=== PATIENT | female | born 1955 | race Caucasian/White ===

== ENCOUNTER 2020-07-31 08:41 | Outpatient (REF) | payer OTHER, SELFPAY ==
[2020-07-31 14:24] LABS: Alanine Aminotransferase 35 U/L (0-31); Albumin Level 4.5 g/dL (3.5-5.0); Alkaline Phosphatase 53 U/L (39-117); Anion Gap 11 (12-20); Aspartate Amino Transferase 24 U/L (5-31); Bilirubin Total 0.9 mg/dL (0.0-1.0); Blood Urea Nitrogen 16 mg/dL (9-16); Calcium 9.2 mg/dL (8.4-10.2); Carbon Dioxide 30 mmol/L (22-29); Chloride 103 mmol/L (96-108); Cholesterol 191 mg/dL; Estimated Glomerular Filt Rate > 60; Glucose Fasting 102 mg/dL (60-99); HDL Cholesterol 53 mg/dL; LDL Cholesterol Calculated 120 mg/dl; Potassium 5.8 mmol/l (3.3-5.1); Sodium 138 mmol/L (135-145); Total Protein 7.3 g/dL (6.5-8.0); Triglycerides 93 mg/dL
== END 2020-07-31 08:42 | disposition home or self-care (01) ==
LOC: HO.10HDL 08:41
PROVIDERS: Visit Provider Internal Medicine
DX: I10 Essential (primary) hypertension (principal)
CPT/HCPCS: 80053; 80061

== ENCOUNTER 2020-08-10 12:54 | Emergency (ER) | payer OTHER, SELFPAY ==
[2020-08-10 15:01] VITALS: BP 183/104; PULSE 77; RESP 16; TEMP 36.7; O2SAT 99; BMI 25.3
--- NOTE | 2020-08-10 15:11 | XR_ITS ---
EXAMINATION: XR HIP, LEFT, PELVIS AP CLINICAL INFORMATION: Left hip pain. COMPARISON: None TECHNIQUE: Two views of the left hip with AP pelvis. FINDINGS: Bones and soft tissues are normal. No fracture. Alignment is anatomic. Hip joint space is maintained. XR/XR hip LT w PEL1V IMPRESSION: Unremarkable pelvis and bilateral hips.
--- NOTE | 2020-08-10 15:15 | ED_ITS ---
HPI - Fall General Chief Complaint: Fall Stated Complaint: fall, hip pain Time Seen by Provider: 08/10/20 15:11 Source: patient Mode of arrival: ambulatory Limitations: no limitations History of Present Illness HPI Narrative: 64-year-old female who tells me on Wednesday she had a fall. She has chronic arthritis in the right knee and is scheduled for knee replacement and her right knee gave out on her causing her to fall her left hip. She denies hitting her head or loss of consciousness. She is here complaining of left hip pain and ecchymosis. complaint: fall Onset (ago): day(s) Fall from: standing Fall witnessed: no Place fall occurred: home Loss of consciousness: none Prolonged down time: no Symptoms prior to fall: none Context: other (right knee gave out ) Location of injury: pelvis (left hip) Severity: mild Associated symptoms (after fall): denies Related Data Previous Rx's Medication Instructions Recorded paroxetine HCl 40 mg tablet 40 mg PO DAILY 90 Days #90 tab 07/30/20 methylcellulose (laxative) 500 mg 1,000 mg PO BID 30 Days #120 tab 07/31/20 tablet amlodipine 2.5 mg tablet 5 mg PO DAILY 30 Days #60 tab 08/07/20 amlodipine 5 mg tablet 5 mg PO DAILY 90 Days #90 tab 08/07/20 Allergies Allergy/AdvReac Type Severity Reaction Status Date / Time No Known Allergies Allergy Unverified 07/04/20 16:50 [No Known Allergies*] Review of Systems Review of Systems: Yes all other systems are reviewed and are negative Constitutional: Constitutional: Reports no additional constitutional complaints, Denies body ache(s), Denies chills, Denies fever(s), Denies headache(s) and Denies weakness Eyes: Eyes: Reports no additional eye complaints and Denies change in vision ENT: Reports system reviewed and no additional complaints, except as do cumented, Denies dizziness, Denies headache(s), Denies nasal congestion, Denies nasal discharge and Denies neck pain Cardiovascular: Cardiovascular: Reports no additional cardiovascular complaints, Denies chest pain, Denies leg edema and Denies dyspnea Respiratory: Respiratory: Reports no additional respiratory complaints, Denies cough and Denies dyspnea Gastrointestinal: Gastrointestinal: Reports no additional gastrointestinal complaints, Denies abdominal pain, Denies diarrhea, Denies nausea and Denies vomiting Genitourinary: Genitourinary: Reports no additional female genitourinary complaints and Denies urinary incontinence Musculoskeletal: Musculoskeletal: Reports no additional musculoskeletal complaints, Denies back pain, Reports arthralgias, Denies joint swelling, Denies neck pain, Denies numbness and Denies tingling Integumentary/Breasts: Skin/Breast: Reports system reviewed and no additional complaints, except as docu and Denies rash Neurologic: Reports system reviewed and no additional complaints, except as documented, Denies Abnormal speech present, Denies dizziness, Denies headache(s), Denies numbness, Denies tingling and Denies weakness PMFSH Past Medical History Attestation statement: The following information was validated with the patient. Source: obtained from family and nursing notes reviewed Medical History Depression Diverticulitis Essential hypertension Hyperkalemia Osteoarthritis (arthritis due to wear and tear of joints) Social History Social History Smoked in Last 30 Days: No Use of substances other than those prescribed or required for medical reasons: No Advance Directives: No Advance Directives Information Provided: No (ALREADY HAS ON FILE) Advance Directives Date on File: 07/31/20 Physical Exam Vital Signs: Vital Signs: Vital Signs Temp Pulse Resp BP Pulse Ox 08/10/20 15:01 98.0 F 77 16 183/104 H 99 Body Mass Index 25.3 Const: General: cooperative, healthy appearing, comfortable and no acute distress Orientation/consciousness: patient oriented x3 Limitations: no limitations HENMT: Head: Yes normal to inspection Ears: hearing grossly normal bilatera lly General nose exam: Normal external nose present Face and sinus: Yes normal facial exam Mouth: Normal oral and palatal mucosa present Throat: Yes posterior oropharynx normal Eyes: General: appearance normal, both eyes and all related structures Pupils: Equal, round and reactive pupils present Neck: Neck: Yes normal visual inspection Chest: Chest palpation & inspection: normal inspection of the chest Resp: Effort & Inspection: normal respiratory effort Auscultation: clear to auscultation bilaterally Cardio: Rate: regular rate Rhythm: regular rhythm Peripheral pulses: Peripheral pulses 2+ throughout GI: Inspection: Yes normal to inspection Palpation (GI): Soft to palpation and nontender Auscultation: normal bowel sounds Back/Spine/Pelvis: Thoracic/Lumbar Spine: thoracic and lumbar spine normal to inspection Skin: General skin exam: no rashes or lesions noted Neuro: General: patient oriented x3, no focal motor deficits and normal sens ation to monofilament Cranial nerves: Yes Equal, round and reactive pupils present Cognition (Neuro): normal cognition Speech: No Abnormal speech present Gait exam (Neuro): Normal gait present Motor exam (neuro): 5/5 motor strength present throughout Extrem: Other: Over the left lateral left hip there is ecchymosis and tenderness. There is no obvious deformity and the leg is not shortened or rotated. Pain with internal rotation but full range of motion able. Neurovascularly intact distally. General: Yes normal to inspection Course Course Course Narrative: Left hip pain status post mechanical fall. Will check imaging. 1615- imaging negative. Likely contusion. Reviewed worrisome signs and symptoms when to return to the emergency department. Comfortable discharge home. MDM - Fall Imaging Data hip and pelvis left : Attestation: I personally reviewed and interpreted this imaging study as follows: My impression: unremarkable Radiologist's impression: EXAMINATION: XR HIP, LEFT, PELVIS AP CLINICAL INFORMATION: Left hip pain. COMPARISON: None TECHNIQUE: Two views of the left hip with AP pelvis. FINDINGS: Bones and soft tissues are normal. No fracture. Alignment is anatomic. Hip joint space is maintained. XR/XR hip LT w PEL1V IMPRESSION: Unremarkable pelvis and bilateral hips. Discharge Plan Discharge Clinical Impression: Contusion Qualifiers: Encounter type: initial encounter Contusion area: hip Laterality: left Qualified Code(s): S70.02XA - Contusion of left hip, initial encounter Patient Disposition: Home, Self-Care Instructions: Hip Contusion (ED) Prescriptions: No Action paroxetine HCl 40 mg tablet 40 mg PO DAILY 90 Days Qty: 90 RF: 3 Citrucel 500 mg tablet 1,000 mg PO BID 30 Days Qty: 120 RF: 6 amlodipine 2.5 mg tablet 5 mg PO DAILY 30 Days Qty: 60 RF: 6 amlodipine 5 mg tablet 5 mg PO DAILY 90 Days Qty: 90 RF: 1 Referrals: Joi Watson MD [Primary Care Provider] - 2 days
== END 2020-08-10 16:55 | disposition home or self-care (01) ==
PROVIDERS: Emergency Provider Emergency Medicine; PCP Internal Medicine
DX: S70.02XA Contusion of left hip, initial encounter (principal); M25.552 Pain in left hip; W18.2XXA Fall in (into) shower or empty bathtub, initial encounter; Y93.9 Activity, unspecified; Y92.009 Unspecified place in unspecified non-institutional (private) residence as the place of occurrence of the external cause; Z79.899 Other long term (current) drug therapy
CPT/HCPCS: 73502; 99283; 99284

== ENCOUNTER 2020-08-19 07:45 | Outpatient (REF) | payer OTHER, SELFPAY ==
[2020-08-19 10:53] LABS: Alanine Aminotransferase 23 U/L (0-31); Albumin Level 4.3 g/dL (3.5-5.0); Alkaline Phosphatase 103 U/L (39-117); Anion Gap 14 (12-20); Aspartate Amino Transferase 18 U/L (5-31); Bilirubin Total 0.3 mg/dL (0.0-1.0); Blood Urea Nitrogen 20 mg/dL (9-16); Calcium 8.7 mg/dL (8.4-10.2); Carbon Dioxide 31 mmol/L (22-29); Chloride 103 mmol/L (96-108); Estimated Glomerular Filt Rate > 60; Glucose Random 93 mg/dL (60-115); Potassium 5.3 mmol/l (3.3-5.1); Sodium 143 mmol/L (135-145); Total Protein 7.2 g/dL (6.5-8.0)
== END 2020-08-19 07:46 | disposition home or self-care (01) ==
LOC: HO.10HDL 07:45
PROVIDERS: Visit Provider Internal Medicine
DX: E87.5 Hyperkalemia (principal)
CPT/HCPCS: 80053

== ENCOUNTER → 2020-09-04 13:56 | Outpatient (BNVA) | payer OTHER, SELFPAY | PROVIDERS: PCP Internal Medicine; Visit Provider Physician Assistant | DX: Z76.89 Persons encountering health services in other specified circumstances (principal) ==

== ENCOUNTER 2020-10-07 08:43 | Outpatient (REF) | payer OTHER, SELFPAY ==
--- NOTE | 2020-10-07 10:18 | ECG_ITS ---
Test Reason : CP Blood Pressure : / mmHG Vent. Rate : 069 BPM Atrial Rate : 066 BPM P-R Int : 148 ms QRS Dur : 082 ms QT Int : 424 ms P-R-T Axes : 045 024 048 degrees QTc Int : 454 ms Normal sinus rhythm Possible Left atrial enlargement Borderline ECG When compared with ECG of 07-OCT-2020 10:23, Sinus rhythm has replaced Ectopic atrial rhythmECG Referred By: Kai Cortez Electronically Signed By: LEON SUNG MD MTDSharona
[2020-10-07 11:36] LABS: MANUAL DIFF FLAG NO
[2020-10-07 11:40] LABS: Basophils Absolute Auto 0.1 X10*3/uL (0.0-0.2); Basophils Percent Auto 0.6 % (0-2); Eosinophils Absolute Auto 0.1 X10*3/uL (0.0-0.4); Eosinophils Percent Auto 0.7 % (0-4); Hemoglobin 14.8 g/dl (12.0-16.0); Imm Gran Abs Auto 0.05 X10*3/uL (0.00-0.03); Imm Gran Pct Auto 0.5 % (0.0-0.4); Lymphocytes Absolute Auto 3.6 X10*3/uL (1.2-4.9); Lymphocytes Percent Auto 37.1 % (20-40); Mean Corpuscular HGB Conc 33.6 g/dl (31.0-35.0); Mean Corpuscular Hemoglobin 32.2 pg (27.0-33.0); Mean Corpuscular Volume 95.9 fL (80-98); Mean Platelet Volume 10.3 fL (9.4-12.3); Monocytes Absolute Auto 0.8 X10*3/uL (0.1-1.2); Monocytes Percent Auto 7.7 % (2-11); Neutrophils Absolute Auto 5.2 X10*3/uL (2.0-8.3); Neutrophils Percent Auto 53.4 % (45-73); Platelet Count 293 X10*3/uL (160-400); Red Blood Count 4.59 X10*6/uL (4.20-5.50); Red Cell Distribution Width 12.1 % (11.0-16.0); White Blood Count 9.7 X10*3/uL (4.8-10.8)
[2020-10-07 11:54] LABS: Anion Gap 15 (12-20); Blood Urea Nitrogen 24 mg/dL (9-16); Calcium 10.3 mg/dL (8.4-10.2); Carbon Dioxide 31 mmol/L (22-29); Chloride 101 mmol/L (96-108); Estimated Glomerular Filt Rate > 60; Glucose Random 90 mg/dL (60-115); Potassium 4.9 mmol/l (3.3-5.1); Sodium 142 mmol/L (135-145)
== END 2020-10-07 08:44 | disposition home or self-care (01) ==
LOC: HO.LAB 08:43
PROVIDERS: PCP Internal Medicine; Visit Provider Orthopaedic Surgery
DX: Z01.812 Encounter for preprocedural laboratory examination (principal); Z01.810 Encounter for preprocedural cardiovascular examination; R07.9 Chest pain, unspecified
CPT/HCPCS: 36415; 80048; 85025; 93005

== ENCOUNTER 2020-10-09 09:08 | Outpatient (REF) | payer OTHER, SELFPAY ==
[2020-10-09 10:42] LABS: Calcium 9.5 mg/dL (8.4-10.2)
[2020-10-10 19:08] LABS: Calcium (PTHI) 9.7 mg/dL (8.6-10.4); PTHI 25 pg/mL (14-64)
== END 2020-10-09 09:09 | disposition home or self-care (01) ==
LOC: HO.10HDL 09:08
PROVIDERS: PCP Internal Medicine; Visit Provider Physician Assistant
DX: E83.52 Hypercalcemia (principal); R79.89 Other specified abnormal findings of blood chemistry
CPT/HCPCS: 82310; 83970

== ENCOUNTER → 2020-10-23 09:33 | Outpatient (BNVA) | payer OTHER, SELFPAY | PROVIDERS: PCP Internal Medicine; Visit Provider Internal Medicine Cardiovascular Disease | DX: Z76.89 Persons encountering health services in other specified circumstances (principal) ==

== ENCOUNTER → 2020-10-31 13:00 | Outpatient (BNVA) | payer OTHER, SELFPAY | PROVIDERS: PCP Internal Medicine; Visit Provider Physician Assistant | DX: Z76.89 Persons encountering health services in other specified circumstances (principal) ==

== ENCOUNTER 2020-11-05 07:55 | Inpatient (IN) | payer OTHER, SELFPAY ==
[2020-10-24 12:02] VITALS: BP 148/82; PULSE 72; RESP 20; O2SAT 20; BMI 25.9
--- NOTE | 2020-10-24 12:05 | HO.ANESPROP2 ---
Documented by User: Cynthia Dubonney 10/24/20 12:31 HPI - Anesthesia Eval Consult details Narrative: 65yo F for R TKA Cardiac cleared *Pt very anxious regarding needles* PMFSH Past Medical History Medical History Depression Diverticulitis Dyslipidemia Essential hypertension History of anxiety Hyperkalemia Osteoarthritis (arthritis due to wear and tear of joints) PAC (premature atrial contraction) Family History Family History Mother Dementia Father No problems noted. Family history of problems with anesthesia: No Surgical History Surgical History History of carpal tunnel release Hx of colonoscopy History of Problems with Anesthesia: No Social History Social History Are you a primary social worker palliative care to a significant other at home: No Do you presently have visiting nurse or other home services: No Alcohol intake: current Alcohol intake frequency: holidays/special occasions only Alcohol type: wine Smoking Status: Never smoker Second Hand Smoke Exposure: No Use of substances other than those prescribed or required for medical reasons: No Have you been hit, kicked, punched, or otherwise hurt by someone within the past year? If so, by whom?: No Christianity Healthcare Practices: Alevism Advance Directives: Yes Advance Directives Information Provided: No Advance Directives on File: Yes Advance Directives Date on File: 07/31/20 Recently lost weight without trying: No Current occupational status: retired Current occupation: Right Handed Narrative Narrative: No recent illness. >4 mets with walking dogs daily. Meds Allergies Allergy/AdvReac Type Severity Reaction Status Date / Time No Known Allergies Allergy Verified 10/23/20 09:54 [No Known Allergies*] Home Medications Medication Instructions Recorded Confirmed Type Bifidobacterium infantis [Align] 4 mg PO DAILY 10/24/20 10/24/20 History calcium carbonate [Calcium 600] 1,200 mg PO DAILY 10/24/20 10/24/20 History cholecalciferol (vitamin D3) 125 mcg PO DAILY 10/24/20 10/24/20 History [Vitamin D3] multivitamin 1 tab PO DAILY 10/24/20 10/24/20 History Exam Exam Date and Time: October 24, 2020 1205 Pertinent Lab Results Pertinent Lab Results: Laboratory Tests 10/07/20 10/07/20 10:30 10:30 WBC 9.7 Hgb 14.8 Hct 44.0 Plt Count 293 Sodium 142 Potassium 4.9 Chloride 101 Carbon Dioxide 31 H BUN 24 H Creatinine 0.72 Narrative Narrative: EKG 09/2020: Unusual P axis, possible ectopic atrial rhythm with Premature atrial complexes Abnormal ECG No previous ECGs available Referred to cardiology for abnormal EKG. Benign PAC's. No further cardiac work up warranted. Optimized/Cleared at low risk. Airway Mallampati Class: II (Small mouth) TM Dist: >3cm Neck ROM: Full Loose/Missing/Broken Teeth: No ( A couple crowns in molars ) Heart: RRR Lungs: CTAB Assessment and Plan Assessment Anesthesia Assessment: Anesthesia Plan Discussed and PAT Visit Documented by User: Guerrero Vogel MD 11/05/20 10:20 PENDING SALE TO [facility] Past Medical History Medical History Depression Diverticulitis Dyslipidemia Essential hypertension History of anxiety Hyperkalemia Osteoarthritis (arthritis due to wear and tear of joints) PAC (premature atrial contraction) Family History Family History Mother Dementia Father No problems noted. Surgical History Surgical History History of carpal tunnel release Hx of colonoscopy Social History Social History Are you a primary social worker palliative care to a significant other at home: No Do you presently have visiting nurse or other home services: No Alcohol intake: current Alcohol intake frequency: holidays/special occasions only Alcohol type: wine Smoking Status: Never smoker Second Hand Smoke Exposure: No Use of substances other than those prescribed or required for medical reasons: No Have you been hit, kicked, punched, or otherwise hurt by someone within the past year? If so, by whom?: No Christianity Healthcare Practices: Alevism Advance Directives: Yes Advance Directives Information Provided: No Advance Directives on File: Yes Advance Directives Date on File: 07/31/20 Recently lost weight without trying: No Current occupational status: retired Current occupation: Right Handed Meds Allergies Allergy/AdvReac Type Severity Reaction Status Date / Time No Known Allergies Allergy Verified 10/23/20 09:54 [No Known Allergies*] Home Medications Medication Instructions Recorded Confirmed Type Bifidobacterium infantis [Align] 4 mg PO DAILY 10/24/20 10/24/20 History calcium carbonate [Calcium 600] 1,200 mg PO DAILY 10/24/20 10/24/20 History cholecalciferol (vitamin D3) 125 mcg PO DAILY 10/24/20 10/24/20 History [Vitamin D3] multivitamin 1 tab PO DAILY 10/24/20 10/24/20 History Exam Airway Mallampati Class: III TM Dist: >3cm Neck ROM: Full Loose/Missing/Broken Teeth: No Heart: RRR Lungs: NL Other: AO Assessment and Plan Assessment Anesthesia Assessment: Anesthesia Plan Discussed and Chart Reviewed Final Anesthetic Review NPO: Yes ASA Class: II Final Preanesthetic Review: No Changes in Pt Med Stat, Meds/Allgs Chart Reviewed, Consent Obtained/Reviewed and Anes Risks/Benef Reviewed Patient Risk: Intermediate Procedure Risk: Low Anesthetic Plan Anesthetic Plan: MAC:, Spinal and Regional Block Disposition: Standard PACU
[2020-10-24 15:45] LABS: MRSA Nasal PCR NEGATIVE (Negative); SA Nasal PCR NEGATIVE (Negative)
[2020-11-05] VITALS (20 sets, daily range): BP systolic 82–142; BP diastolic 52–87; PULSE 61–96; RESP 16–19; TEMP 36.2–36.8; O2SAT 90–99
[2020-11-05] MEDS: ceFAZolin Sodium/Dextrose,Iso 2 GM/50 ML PIGGYBACK IV ×2 (09:05→17:49)
[2020-11-05] MEDS: Gabapentin 600 MG TABLET PO (09:06)
[2020-11-05 09:19] LABS: COVID-19 Test Negative (Negative)
[2020-11-05] MEDS: Lactated Ringers 1,000 ML 100 ML IVCONT (09:32)
--- NOTE | 2020-11-05 10:00 | MHC.SHP ---
Pre-Procedural Eval Section A The patient is an INPATIENT: No Changes since office visit: Yes Patient answered all questions; No Cold of Flu in the past 2 weeks, No New Medical Problems and No Changes in Medication The History & Physical has been completed within 30 days and I have reviewed it.: Yes Section B Chief Complaint: right total knee arthroplasty Allergies: Allergies Allergy/AdvReac Type Severity Reaction Status Date / Time No Known Allergies Allergy Verified 10/23/20 09:54 [No Known Allergies*] Plan I have reviewed the history and physical and performed a pertinent physical examination on my patient. No changes have occurred unless specified.
--- NOTE | 2020-11-05 12:23 | P.BOP_ITS ---
Brief Operative Note Date of Service: 11/05/20 Pre-op diagnosis: right knee OA Post-op diagnosis: same Procedure: right TKA Implants: styker triathalon press fit Surgeon: Kai Cortez MD Anesthesia: regional and spinal Safety Risk Lead: Cliff Clark Estimated blood loss (mL): 250 Tourniquet time (min): 0 IV fluids (mL): 900 Pathology: other Condition: stable Disposition: PACU
--- NOTE | 2020-11-05 12:56 | XR_ITS ---
EXAMINATION: XR KNEE, RIGHT CLINICAL INFORMATION: Right knee replacement COMPARISON: Previous x-ray June 2020 TECHNIQUE: 2 of the right knee. FINDINGS: There is a new 3 component right knee replacement in satisfactory position. No fracture or dislocation is seen. There are postoperative changes to the soft tissues. XR/XR knee RT 2V IMPRESSION: Satisfactory appearance of right knee replacement.
--- NOTE | 2020-11-05 15:45 | P.CONIM_ITS ---
History of Present Illness Data of Consult Service Date: 11/05/20 Requesting physician: Aamir Spann Primary Care Provider: Joi Russell MD HPI Reason for consult: Medical Management 65 year old Woman with a history of hypertension, depression and hyperlipidemia admitted by Orthopedic Surgical Service and is status post right knee arthroplasty. Surgery was unremarkable. Vital signs are stable. Patient has no acute medical complaints. Review of Systems Review of Systems: Denies any recent fever chills or decrease in appetite respiratory denies any shortness of breath coverage production cardiovascular is adjustment of any PND or edema gastrointestinal denies any dysphagia abdominal pain nausea vomiting or diarrhea genitourinary denies any dysuria frequency or hematuria musculoskeletal denies any joint pain or swelling neuropsych denies any weakness or seizures all other systems reviewed are negative [facility] Medical History Depression Diverticulitis Dyslipidemia Essential hypertension History of anxiety Hyperkalemia Osteoarthritis (arthritis due to wear and tear of joints) PAC (premature atrial contraction) Family History Mother Dementia Father No problems noted. Surgical History History of carpal tunnel release Hx of colonoscopy Social History Are you a primary career specialist to a significant other at home: No Do you presently have visiting nurse or other home services: No Alcohol intake: current Alcohol intake frequency: holidays/special occasions only Alcohol type: wine Smoking Status: Never smoker Second Hand Smoke Exposure: No Use of substances other than those prescribed or required for medical reasons: No Have you been hit, kicked, punched, or otherwise hurt by someone within the past year? If so, by whom?: No Holiness Healthcare Practices: Sabianism Advance Directives: Yes Advance Directives Information Provided: No Advance Directives on File: Yes Advance Directives Date on File: 07/31/20 Recently lost weight without trying: No Current occupational status: retired Current occupation: Right Handed Meds Allergies Allergy/AdvReac Type Severity Reaction Status Date / Time No Known Allergies Allergy Verified 10/23/20 09:54 [No Known Allergies*] Home Medications Medication Instructions Recorded Confirmed Type Bifidobacterium infantis [Align] 4 mg PO DAILY 10/24/20 10/24/20 History calcium carbonate [Calcium 600] 1,200 mg PO DAILY 10/24/20 10/24/20 History cholecalciferol (vitamin D3) 125 mcg PO DAILY 10/24/20 10/24/20 History [Vitamin D3] multivitamin 1 tab PO DAILY 10/24/20 10/24/20 History Physical Exam Vital Signs and Narrative: Vital Signs: Last Vital Signs Temp 97.2 F 11/05/20 13:40 Pulse 72 11/05/20 14:52 Resp 16 11/05/20 14:52 BP 111/73 11/05/20 14:52 Pulse Ox 95 11/05/20 14:52 Body Mass Index 25.9 Appearing in no acute distress head is normocephalic atraumatic eyes pupils are PERRLA sclera is anicteric mouth throat mucous membranes are intact and moist neck is supple no lymphadenopathy, no JVD noted lung sounds are clear to auscultation heart regular rate rhythm, clear S1, S2 positive bowel sounds, abdomen is soft, nontender neuro patient is alert x3, no focal deficits Results Labs Labs: Laboratory Results - last 24 hr 11/05/20 08:37 COVID-19 (JANET) Negative COVID-19 Clin Com See Note Imaging Radiologist's Impressions: Impressions Knee X-Ray 11/05/20 12:56 IMPRESSION: Satisfactory appearance of right knee replacement. Assessment and Plan (1) Status post total right knee replacement: Status: Acute 65-year-old woman admitted med by Orthopedic Surgical Service and is status post right total knee arthroplasty. 1730 patient had an episode of vomiting, and dizziness while walking to BR. BP was 82/52. Gary better once in bed. Orthostasis. One liter NS bolus, hold Amlodipine, Orthostatic BP's. Right total knee arthroplasty. Management as per surgical team. Pain management. Depression. Continue paroxetine. Hyperlipidemia continue statin. DVT prophylaxis with Mechanical compression boots. Discussed with Dr. Leiva Full code
[2020-11-05] MEDS: oxyCODONE HCl Immed Release 5 MG TABLET PO ×2 (16:01→20:38)
[2020-11-05] MEDS: Dextrose 5 % and 0.45 % NaCl 1,000 ML 80 ML IVCONT (16:01)
[2020-11-05] MEDS: 0.9 % Sodium Chloride Flush 3 ML SYRINGE IVFLUSH (16:02)
--- NOTE | 2020-11-05 17:48 | PM.EVENT ---
Event Note Date of Service: 11/06/20 Event Note: Patient seen and examined with APC Patient is here for knee surgery Seen and examined-had episode of possible orthostasis? She said she was passing her bowels and subsequently felt nauseous and try to stand up and feeling like dizzy. Denied pass out. Denies any chest pain or shortness of breath or any abdominal pain. Labs imaging reviewed Physical exam: Cvs: rrr, [id number] , no murmur res: clear to auscultation ,no rhonchii or wheezing abd: no rebound or guarding ,nt, bs present. ext pulses present , no cyanosis neuro: axo3 , nonfocal. Assessment and plan coordinated in APCs note consult in addition Orthostasis probably related to dehydration: Repeated blood pressure improved in 120s Hold amlodipine Monitor blood pressure Q 1 hourly for 6 hours IV fluid ns100 mL/hour Monitor clinically Discussed with the staff in detail.
[2020-11-05] MEDS: 0.9 % Sodium Chloride 1,000 ML 100 ML IVCONT (17:57)
--- NOTE | 2020-11-05 18:17 | PC.NURSE ---
Addendum entered by Brie Ryan 11/05/20 18:43: 1840 BP 114/70. pt still complaining of mild nausea. no dizziness. resting comfortably in bed. Original Note: 173 Patient was complaining of nausea. vomited x1. ambulated to bathroom x1 assist with walker. while sitting on the toilet, c/o dizziness and nausea. pt noted to be pale. pt stated feeling like shes going to pass out . w/c obtained. pt transferred using x2 assist back to bed. BP 82/52. pt laying supine and flat. stating she feels better. Gisell Vogt TUMBLER MACHINE OPERATOR HELPER made aware. Dr. Felipe at bedside. 174 new BP 118/68. Normal Saline at 100ml/hr ordered. Vitals to closely monitored. pt sitting up to eat with no further complaints at this time.
[2020-11-05] MEDS: Celecoxib 200 MG CAPSULE PO (20:37)
[2020-11-05] MEDS: oxyCODONE HCl ER 10 MG TAB.ER.12H PO (20:37)
--- NOTE | 2020-11-05 20:57 | OP_ITS ---
SURGEON: Kai Cortez MD INDICATIONS: A 65-year-old woman with severe osteoarthritis of the right knee, consented to undergo arthroplasty. PREOPERATIVE DIAGNOSIS: Right knee osteoarthritis. POSTOPERATIVE DIAGNOSIS: Right knee osteoarthritis. PROCEDURE PERFORMED: Right total knee arthroplasty. ESTIMATED BLOOD LOSS: 250 mL. COMPLICATIONS: None known. ANESTHESIA: Regional spinal. ASSISTANTS: JENNIE Rios and JENNIE Torres. SPECIMENS: IMPLANTS: Rahat press-fit Triathlon 4/4/9CR/32A. FLUIDS: 900. PROCEDURE IN DETAIL: The patient was brought into the operating room, placed supine on the operative table and prepped and draped in standard sterile fashion. Time-out was called to identify proper site, proper procedure, and proper surgeon. IV antibiotics per weight were administered. I began by making a standard midline incision down the retinaculum and performed a medial parapatellar arthrotomy. The fat pad was resected. A medial peel was performed and the knee was flexed. Polk's line was used to drill my intramedullary femoral guide and made my distal femoral cut was made in 5 degrees of valgus. I then sized a size 4 femur, made my anterior, posterior, and chamfer cuts protecting the soft tissues at all times. I then turned my attention to the tibia, where I took a 9 mm off the lateral side in line with the tibial crest, protecting the PCL. Once all extraneous soft tissue and bone were removed, I trialed a size 4 femur and was happy with a 4 femur and 4 tibia. Of note, I did take an additional 2 mm off the distal femur because of flexion contracture. I then made my tibial cut and placed an extension block and was happy with the extension. I prepared the patella at this point, removing 1 cm from the undersurface of the patella and sizing a size 32 asymmetric patella. I again took knee through range of motion with the patella in place and was happy with the tracking range and stability of the construct. I then prepared the femoral lug and the tibial base plate or in the tibial canal and copiously irrigated. I then press-fit my final implants in standard fashion and was trialed a 9 and 11 insert, was happiest with the 9. She had excellent range of motion, stability. Final 9 polyethylene insert was placed and copious irrigation was performed with TXA and a 3-minute iodine soak. I then removed all instrumentation and closed in layered fashion with destiny on the skin. The patient was then awakened from sedation and brought to recovery room in stable condition. There were no known complications. MD YRIS Charles/CHRISSY / [id number]
[2020-11-06] VITALS (9 sets, daily range): BP systolic 114–153; BP diastolic 64–88; PULSE 71–86; RESP 15–19; TEMP 36–36.9; O2SAT 93–98
[2020-11-06] MEDS: oxyCODONE HCl Immed Release 5 MG TABLET PO ×4 (03:36→18:02)
[2020-11-06] MEDS: 0.9 % Sodium Chloride 1,000 ML 100 ML IVCONT (03:36)
[2020-11-06] MEDS: ondansetron HCL 4 MG/2 ML VIAL IVPUSH (03:47)
[2020-11-06 06:28] LABS: MANUAL DIFF FLAG NO
[2020-11-06 06:45] LABS: Basophils Percent Auto 0.1 % (0-2); Hematocrit 30.4 % (37-47); Imm Gran Abs Auto 0.07 X10*3/uL (0.00-0.03); Imm Gran Pct Auto 0.5 % (0.0-0.4); Lymphocytes Absolute Auto 2.2 X10*3/uL (1.2-4.9); Lymphocytes Percent Auto 15.6 % (20-40); Mean Corpuscular HGB Conc 32.9 g/dl (31.0-35.0); Mean Corpuscular Hemoglobin 32.3 pg (27.0-33.0); Mean Corpuscular Volume 98.1 fL (80-98); Mean Platelet Volume 10.5 fL (9.4-12.3); Monocytes Absolute Auto 1.5 X10*3/uL (0.1-1.2); Monocytes Percent Auto 10.4 % (2-11); Neutrophils Absolute Auto 10.4 X10*3/uL (2.0-8.3); Neutrophils Percent Auto 73.4 % (45-73); Platelet Count 221 X10*3/uL (160-400); Red Cell Distribution Width 12.6 % (11.0-16.0); White Blood Count 14.2 X10*3/uL (4.8-10.8)
[2020-11-06 07:28] LABS: Anion Gap 10 (12-20); Blood Urea Nitrogen 26 mg/dL (9-16); Calcium 7.9 mg/dL (8.4-10.2); Carbon Dioxide 29 mmol/L (22-29); Chloride 106 mmol/L (96-108); Creatinine Clr Calc Pharmacy 86.3; Estimated Glomerular Filt Rate > 60; Glucose Fasting 121 mg/dL (60-99); Potassium 4.9 mmol/l (3.3-5.1); Sodium 140 mmol/L (135-145)
--- NOTE | 2020-11-06 07:31 | PM.PNORT ---
Subjective Subjective Date of Service: 11/06/20 Interval history: POD1 s/p RTKA. Pt. resting comfortably in bed. No overnight events. Pain is well managed. Physical Exam Vital Signs: Vital Signs: Last Vital Signs Temp 96.8 F 11/06/20 07:30 Pulse 74 11/06/20 07:30 Resp 15 11/06/20 07:30 BP 139/82 11/06/20 07:30 Pulse Ox 96 11/06/20 07:30 Body Mass Index 25.9 Const: General: cooperative, healthy appearing and no acute distress Resp: Effort & Inspection: normal respiratory effort and able to speak in complete sentences Cardio: Rate: regular rate Peripheral pulses: Peripheral pulses 2+ throughout GI: Palpation (GI): Soft to palpation Skin: Lesions: no lesions Rashes: no rashes Extrem: Other: No ecchymosis, redness, or drainage. Dressing is clean, dry and intact. NVI Progress Note: A&P Assessment and plan (1) Status post total right knee replacement: Status: Acute Assessment and Plan: Continue pain mgmnt Begin ASA for dvt ppx begin PT for Dispo planning-Pending PT eval, pain mgmnt Fall Risk Details Current Medications: Current Medications Generic Name Dose Route Start Last Admin Trade Name Freq PRN Reason Stop Dose Admin Acetaminophen 650 mg 11/05/20 15:23 Acetaminophen 325 Mg Tablet PO Q6H PRN Pain, Mild (Pain Scale 1-3) Calcium Carbonate 1,000 mg 11/06/20 09:00 Calcium Carbonate 500 Mg Tablet PO DAILY HARESH Celecoxib 200 mg 11/05/20 21:00 11/05/20 20:37 Celecoxib 200 Mg Capsule PO 200 mg BID HARESH Administration Hydromorphone HCl 0.25 mg 11/05/20 15:23 Hydromorphone Hcl 0.5 Mg/0.5 Ml Syringe IVPUSH Q4H PRN Pain, Severe (Pain Scale 7-10) Sodium Chloride 1,000 mls @ 100 mls/hr 11/05/20 18:00 11/06/20 03:36 Ns IVCONT 100 mls/hr .Q10H HARESH Administration Multivitamins/Vitamin C 1 tab 11/06/20 09:00 Multivitamin Tablet PO DAILY HARESH Naloxone HCl 0.2 mg 11/05/20 15:23 Naloxone Hcl 0.4 Mg/Ml Vial IVPUSH Q2M PRN Excessive sedation or RR < 8 Non-Formulary Medication 4 mg 11/06/20 09:00 Bifidobacterium Infantis [Align] PO DAILY [facility] Ondansetron HCl 4 mg 11/05/20 15:23 11/06/20 03:47 Ondansetron Hcl 4 Mg/2 Ml Vial IVPUSH 4 mg Q8H PRN Administration Nausea and Vomiting Oxycodone HCl 5 mg 11/05/20 15:23 11/06/20 03:36 Oxycodone Hcl Immed Release 5 Mg Tablet PO 5 mg Q4H PRN Administration Pain, Moderate (Pain Scale 4-6 Oxycodone HCl 10 mg 11/05/20 21:00 11/05/20 20:37 Oxycodone Hcl Er 10 Mg Tab.Er.12h PO 10 mg BID HARESH Administration Paroxetine HCl 40 mg 11/06/20 09:00 Paroxetine Hcl 40 Mg Tablet PO DAILY [facility] Pravastatin Sodium 20 mg 11/06/20 09:00 Pravastatin Sodium 20 Mg Tablet PO DAILY [facility] Senna 17.2 mg 11/05/20 15:23 Sennosides 8.6 Mg Tablet PO BEDTIME PRN Constipation Sodium Chloride 3 ml 11/05/20 16:00 11/06/20 00:29 0.9 % Sodium Chloride Flush 3 Ml Syringe IVFLUSH Not Given QSHIFT [facility] Vitamin D 125 mcg 11/06/20 09:00 Cholecalciferol (Vitamin D3) 25 Mcg Tablet PO DAILY [facility] Time Spent With Patient Time: Total time spent is greater than 50% in coordination of care (as documented) at patient's floor/unit and/or counseling patient: Time with patient: less than 15 minutes
[2020-11-06] MEDS: Multivitamin TABLET 1 TAB PO (09:03)
[2020-11-06] MEDS: PARoxetine HCL 40 MG TABLET PO (09:03)
[2020-11-06] MEDS: oxyCODONE HCl ER 10 MG TAB.ER.12H PO ×2 (09:03→21:12)
[2020-11-06] MEDS: Cholecalciferol (Vitamin D3) 25 MCG TABLET 125 MCG PO (09:04)
[2020-11-06] MEDS: Pravastatin Sodium 20 MG TABLET PO (09:04)
[2020-11-06] MEDS: Aspirin 325 MG TABLET PO ×2 (09:04→21:11)
[2020-11-06] MEDS: Celecoxib 200 MG CAPSULE PO ×2 (09:52→21:12)
--- NOTE | 2020-11-06 12:26 | MHC.CM.PN ---
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 PT VERIFIED PCP, PHARMACY AND HCP. CM REQUESTED COPY OF HCP BE BROUGHT IN. PT REPORTS TAKING PAXIL FOR ANXIETY WHICH IS VERY HELPFUL AND PT REPORTS SHE FEELS STABLE ON CURRENT DOSE, PT REPORTS HER PCP PRESCRIBES IT AND DENIES NEED FOR THERAPIST OR CARE TEAM REFERRAL AT THIS TIME. HCP: DAUGHTER ANNIE MCGILL [phone] ALTERANTE: ADRIANA ROJAS (SISTER) [phone] PCP: DR VINNIE JHONSTON PHARMACY: [facility]
--- NOTE | 2020-11-06 14:05 | HO.POSTANES ---
Post Anesthesia Evaluation Post Anesthesia Evaluation Vital Signs: Vital Signs Temp Pulse Resp BP Pulse Ox 11/06/20 11:55 72 153/88 H 93 11/06/20 11:28 98.5 F 72 16 153/88 H 93 11/06/20 08:55 74 139/82 96 11/06/20 07:30 96.8 F 74 15 139/82 96 11/06/20 03:33 97.3 F 71 19 134/74 94 Anesthesia: Spinal Mental Status: Awake Pain Control: Satisfactory Nausea/Vomiting: None Hydration: Adequate Anesthesia-Related Issues: No Anes. Related Issues
--- NOTE | 2020-11-06 14:23 | HO.PM.IMPN ---
Subjective Subjective Date of Service: 11/06/20 Interval History: Hypertension, possible vasovagal episode yesterday versus dehydration. Review of Systems Denies any chest shortness of breath or abdominal pain or fever chills Physical Exam Vital Signs: Vital Signs: Last Vital Signs Temp 98.5 F 11/06/20 11:28 Pulse 72 11/06/20 11:55 Resp 16 11/06/20 11:28 BP 153/88 H 11/06/20 11:55 Pulse Ox 93 11/06/20 11:55 Body Mass Index 25.9 Physical exam: Constitutional: Not in acute distress Cvs: rrr, [id number] , no murmur res: clear to auscultation ,no rhonchii or wheezing abd: no rebound or guarding ,nt, bs present. ext pulses present , no cyanosis neuro: axo3 , nonfocal. Objective Data Current Medications Generic Name Dose Route Start Last Admin Trade Name Freq PRN Reason Stop Dose Admin Acetaminophen 650 mg 11/05/20 15:23 Acetaminophen 325 Mg Tablet PO Q6H PRN Pain, Mild (Pain Scale 1-3) Aspirin 325 mg 11/06/20 09:00 11/06/20 09:04 Aspirin 325 Mg Tablet PO 325 mg BID HARESH Administration Calcium Carbonate 1,000 mg 11/06/20 09:00 11/06/20 09:04 Calcium Carbonate 500 Mg Tablet PO 1,000 mg DAILY HARESH Administration Celecoxib 200 mg 11/05/20 21:00 11/06/20 09:52 Celecoxib 200 Mg Capsule PO 200 mg BID HARESH Administration Hydromorphone HCl 0.25 mg 11/05/20 15:23 Hydromorphone Hcl 0.5 Mg/0.5 Ml Syringe IVPUSH Q4H PRN Pain, Severe (Pain Scale 7-10) Multivitamins/Vitamin C 1 tab 11/06/20 09:00 11/06/20 09:03 Multivitamin Tablet PO 1 tab DAILY HARESH Administration Naloxone HCl 0.2 mg 11/05/20 15:23 Naloxone Hcl 0.4 Mg/Ml Vial IVPUSH Q2M PRN Excessive sedation or RR < 8 Non-Formulary Medication 4 mg 11/06/20 09:00 Bifidobacterium Infantis [Align] PO DAILY HARESH Ondansetron HCl 4 mg 11/05/20 15:23 11/06/20 03:47 Ondansetron Hcl 4 Mg/2 Ml Vial IVPUSH 4 mg Q8H PRN Administration Nausea and Vomiting Oxycodone HCl 5 mg 11/05/20 15:23 11/06/20 13:38 Oxycodone Hcl Immed Release 5 Mg Tablet PO 5 mg Q4H PRN Administration Pain, Moderate (Pain Scale 4-6 Oxycodone HCl 10 mg 11/05/20 21:00 11/06/20 09:03 Oxycodone Hcl Er 10 Mg Tab.Er.12h PO 10 mg BID HARESH Administration Paroxetine HCl 40 mg 11/06/20 09:00 11/06/20 09:03 Paroxetine Hcl 40 Mg Tablet PO 40 mg DAILY HARESH Administration Pravastatin Sodium 20 mg 11/06/20 09:00 11/06/20 09:04 Pravastatin Sodium 20 Mg Tablet PO 20 mg DAILY HARESH Administration Senna 17.2 mg 11/05/20 15:23 Sennosides 8.6 Mg Tablet PO BEDTIME PRN Constipation Sodium Chloride 3 ml 11/05/20 16:00 11/06/20 09:04 0.9 % Sodium Chloride Flush 3 Ml Syringe IVFLUSH Not Given QSHIFT [facility] Vitamin D 125 mcg 11/06/20 09:00 11/06/20 09:04 Cholecalciferol (Vitamin D3) 25 Mcg Tablet PO 125 mcg DAILY HARESH Administration Labs CBC & Chem 7: 11/06/20 05:57 11/06/20 05:57 Assessment and Plan (1) Essential hypertension: Status: Acute Assessment and Plan: 65-year-old woman admitted med by Orthopedic Surgical Service and is status post right total knee arthroplasty. 1730 patient had an episode of vomiting, and dizziness while walking to BR. BP was 82/52. [place] better once in bed. 1. Probable vasovagal episode versus dehydration : Improved even before starting fluid yesterday blood pressure was in 120s Will hold of fluids Hold them amlodipine. . Leukocytosis seems reactive-patient denies any new symptoms, no fevers, no cough or phlegm or any urinary complaints. 2.Right total knee arthroplasty. Management as per surgical team. Pain management. 3.Depression. Continue paroxetine. 4.Hyperlipidemia continue statin. DVT prophylaxis with Mechanical compression boots.
--- NOTE | 2020-11-06 14:32 | MHC.CM.PN ---
ANTICIPATED D/C ON 11/07/20 WITH [facility] FOR [facility] AND HOME PT, TO TRANSPORT.
[2020-11-06] MEDS: 0.9 % Sodium Chloride Flush 3 ML SYRINGE IVFLUSH (16:09)
[2020-11-07] VITALS (14 sets, daily range): BP systolic 114–147; BP diastolic 55–74; PULSE 77–86; RESP 16–18; TEMP 36.6–37.2; O2SAT 91–95
[2020-11-07] MEDS: 0.9 % Sodium Chloride Flush 3 ML SYRINGE IVFLUSH ×2 (00:33→07:59)
[2020-11-07 06:15] LABS: MANUAL DIFF FLAG NO
[2020-11-07 06:28] LABS: Basophils Absolute Auto 0.1 X10*3/uL (0.0-0.2); Basophils Percent Auto 0.5 % (0-2); Eosinophils Absolute Auto 0.2 X10*3/uL (0.0-0.4); Eosinophils Percent Auto 1.9 % (0-4); Hematocrit 27.6 % (37-47); Hemoglobin 8.9 g/dl (12.0-16.0); Imm Gran Abs Auto 0.08 X10*3/uL (0.00-0.03); Imm Gran Pct Auto 0.7 % (0.0-0.4); Lymphocytes Absolute Auto 2.3 X10*3/uL (1.2-4.9); Lymphocytes Percent Auto 19.2 % (20-40); Mean Corpuscular HGB Conc 32.2 g/dl (31.0-35.0); Mean Corpuscular Hemoglobin 31.7 pg (27.0-33.0); Mean Corpuscular Volume 98.2 fL (80-98); Mean Platelet Volume 10.7 fL (9.4-12.3); Monocytes Absolute Auto 1.3 X10*3/uL (0.1-1.2); Monocytes Percent Auto 10.7 % (2-11); Neutrophils Absolute Auto 7.9 X10*3/uL (2.0-8.3); Platelet Count 181 X10*3/uL (160-400); Red Blood Count 2.81 X10*6/uL (4.20-5.50); Red Cell Distribution Width 12.6 % (11.0-16.0); White Blood Count 11.8 X10*3/uL (4.8-10.8)
[2020-11-07 07:08] LABS: Anion Gap 9 (12-20); Blood Urea Nitrogen 15 mg/dL (9-16); Calcium 8.1 mg/dL (8.4-10.2); Carbon Dioxide 30 mmol/L (22-29); Chloride 103 mmol/L (96-108); Creatinine Clr Calc Pharmacy 90.3; Estimated Glomerular Filt Rate > 60; Glucose Fasting 117 mg/dL (60-99); Potassium 4.3 mmol/l (3.3-5.1); Sodium 138 mmol/L (135-145)
--- NOTE | 2020-11-07 07:37 | P.DS_ITS ---
DS: Providers Provider Date of Service: 11/07/20 Date of admission: 11/05/20 07:55 Primary care physician: Joi Russell MD Consults: 11/05/20 15:23 Consult to Hospitalist Routine Consulting Provider: Hospitalist Reason for consultation: Medical management DS: Diagnosis Discharge Diagnosis (1) Status post total right knee replacement: Status: Acute Problem details: Ms. Sparks is a 65 yo female who presented to the office with ongoing right knee pain. She was found to have end stage OA of the right knee. She had failed all conservative measures and continued to have difficulty with ADls; therefore, she consented to move forward with RT TKA. DS: Medications Discharge Medications Home Medications: Home Medications Medication Instructions Recorded Confirmed Align 4 mg PO DAILY 10/24/20 10/24/20 calcium carbonate [Calcium 600] 1,200 mg PO DAILY 10/24/20 10/24/20 cholecalciferol (vitamin D3) 125 mcg PO DAILY 10/24/20 10/24/20 [Vitamin D3] multivitamin 1 tab PO DAILY 10/24/20 10/24/20 Previous Rx's Medication Instructions Recorded paroxetine HCl 40 mg tablet 40 mg PO DAILY 90 Days #90 tab 07/30/20 methylcellulose (laxative) 500 mg 1,000 mg PO BID 30 Days #120 tab 07/31/20 tablet amlodipine 5 mg tablet 5 mg PO DAILY 90 Days #90 tab 08/07/20 pravastatin 20 mg tablet 20 mg PO DAILY #30 cap 10/13/20 acetaminophen 650 mg PO Q6H PRN 30 Days #240 tab 11/07/20 aspirin 325 mg PO BID 14 Days #28 tab 11/07/20 celecoxib [Celebrex] 200 mg PO BID 30 Days #60 cap 11/07/20 oxycodone 5 mg PO Q4H PRN 7 Days #42 tab 11/07/20 sennosides [Senna Lax] 17.2 mg PO BEDTIME PRN 30 Days #60 11/07/20 tab DS: Summary Hospital Course Hospital Course: The patient underwent a successful Right total knee arthroplasty, was transferred to PACU and then to the floor to recover. During their stay, their vitals were stable, afebrile at 98.5. POD 2 Labs were unremarkable, H/H 8.9/27.6, 1 units PRBCs and sent home on IRON. POD 1 She was started on ASA for DVT ppx, they also received PT services twice a day. Prior to discharge, their dressing was change, incision clean dry and intact, new Aquacel dressing applied and the plan was to be discharged home with VNA services,. Time Spent with Patient Time attestation: Total time spent providing and/or coordinating discharge services: Discharge coordination time: Less than 30 minutes Physical Exam Vital Signs: Vital Signs: Last Vital Signs Temp 98.2 F 11/07/20 06:55 Pulse 81 11/07/20 06:54 Resp 18 11/07/20 06:55 BP 114/55 L 11/07/20 06:54 Pulse Ox 93 11/07/20 06:55 Body Mass Index 25.9 DS: Data Data Completed and Pending Pending studies at discharge: Pending at discharge 11/05/20 12:11 Surgical [PTH] Routine Labs on day of discharge: Laboratory Tests 10/24/20 10/24/20 11/05/20 12:52 Unknown 08:37 WBC RBC Hgb Hct MCV MCH MCHC RDW Plt Count MPV Immature Gran % (Auto) Neut % (Auto) Lymph % (Auto) [place] % (Auto) Eos % (Auto) Baso % (Auto) Lymph # (Auto) [place] # (Auto) Eos # (Auto) Baso # (Auto) Abs Immat Gran (auto) Absolute Neuts (auto) Absolute Nucleated RBC Nucleated RBC % (auto) Sodium Potassium Chloride Carbon Dioxide Anion Gap BUN Creatinine Estim Creat Clear Calc Estimated GFR Fasting Glucose Calcium Nasal Screen MRSA (PCR) NEGATIVE Nasal S. aureus Screen NEGATIVE Nasal MRSA/S.aureus Interp SEE NOTE COVID-19 (JANET) Negative COVID-19 Clin Com See Note Blood Type O Positive Antibody Screen NEGATIVE 11/06/20 11/06/20 11/07/20 05:57 05:57 05:50 WBC 14.2 H 11.8 H RBC 3.10 L D 2.81 L Hgb 10.0 L D 8.9 L Hct 30.4 L D 27.6 L MCV 98.1 H 98.2 H MCH 32.3 31.7 MCHC 32.9 32.2 RDW 12.6 12.6 Plt Count 221 181 MPV 10.5 10.7 Immature Gran % (Auto) 0.5 H 0.7 H Neut % (Auto) 73.4 H 67.0 Lymph % (Auto) 15.6 L 19.2 L [place] % (Auto) 10.4 10.7 Eos % (Auto) 0.0 1.9 Baso % (Auto) 0.1 0.5 Lymph # (Auto) 2.2 2.3 [place] # (Auto) 1.5 H 1.3 H Eos # (Auto) 0.0 0.2 Baso # (Auto) 0.0 0.1 Abs Immat Gran (auto) 0.07 H 0.08 H Absolute Neuts (auto) 10.4 H 7.9 Absolute Nucleated RBC 0.000 0.000 Nucleated RBC % (auto) 0.0 0.0 Sodium 140 Potassium 4.9 Chloride 106 Carbon Dioxide 29 Anion Gap 10 L BUN 26 H Creatinine 0.67 Estim Creat Clear Calc 86.3 Estimated GFR > 60 Fasting Glucose 121 H Calcium 7.9 L D Nasal Screen MRSA (PCR) Nasal S. aureus Screen Nasal MRSA/S.aureus Interp COVID-19 (JANET) COVID-19 [employer] Com Blood Type Antibody Screen 11/07/20 05:50 WBC RBC Hgb Hct MCV MCH MCHC RDW Plt Count MPV Immature Gran % (Auto) Neut % (Auto) Lymph % (Auto) [place] % (Auto) Eos % (Auto) Baso % (Auto) Lymph # (Auto) [place] # (Auto) Eos # (Auto) Baso # (Auto) Abs Immat Gran (auto) Absolute Neuts (auto) Absolute Nucleated RBC Nucleated RBC % (auto) Sodium 138 Potassium 4.3 Chloride 103 Carbon Dioxide 30 H Anion Gap 9 L BUN 15 Creatinine 0.64 Estim Creat Clear Calc 90.3 Estimated GFR > 60 Fasting Glucose 117 H Calcium 8.1 L Nasal Screen MRSA (PCR) Nasal S. aureus Screen Nasal MRSA/S.aureus Interp COVID-19 (JANET) COVID-19 [employer] Com Blood Type Antibody Screen Discharge Plan Discharge Patient Disposition: Home Health Service Referrals: [facility] [Outside] Cliff Clark PA-C [Physician [employer]] - 11/21/20 1:00 pm (11/21/20 1:00pm [facility] [place] [facility]geons Cliff Clark PA-C ) Discharge Medications: New sennosides [Senna Lax] 8.6 mg Tablet 17.2 mg PO BEDTIME PRN (Reason: Constipation) 30 Days Qty: 60 RF: 0 acetaminophen 325 mg Tablet 650 mg PO Q6H PRN (Reason: Pain, Mild (Pain Scale 1-3)) 30 Days Qty: 240 RF: 0 aspirin 325 mg Tablet 325 mg PO BID 14 Days Qty: 28 RF: 0 oxycodone 5 mg Tablet 5 mg PO Q4H PRN (Reason: Pain, Moderate (Pain Scale 4-6) 7 Days Qty: 42 RF: 0 celecoxib [Celebrex] 200 mg capsule 200 mg PO BID 30 Days Qty: 60 RF: 2 ferrous sulfate [iron] 325 mg (65 mg iron) tablet 325 mg PO DAILY 30 Days Qty: 30 RF: 0 Continued paroxetine HCl 40 mg tablet 40 mg PO DAILY 90 Days Qty: 90 RF: 3 Citrucel 500 mg tablet 1,000 mg PO BID 30 Days Qty: 120 RF: 6 amlodipine 5 mg tablet 5 mg PO DAILY 90 Days Qty: 90 RF: 1 pravastatin 20 mg tablet 20 mg PO DAILY Qty: 30 RF: 6 multivitamin Tablet 1 tab PO DAILY RF: 0 calcium carbonate [Calcium 600] 600 mg calcium (1,500 mg) Tablet 1,200 mg PO DAILY RF: 0 Align 4 mg Capsule 4 mg PO DAILY RF: 0 cholecalciferol (vitamin D3) [Vitamin D3] 125 mcg (5,000 unit) Tablet 125 mcg PO DAILY RF: 0 Discharge Orders: Discharge Order (Routine); Ordered 11/07/20 Ordered By: Cliff Clark Diet: regular diet Activity on Discharge: Use cane or walker Stand Alone Forms: Patient Portal Discharge page Activity Restrictions/Additional Instructions: * Physical Therapy for ROM 0-120, quad strength, gait training . Use walker for ambulation * Limit stair climbing, No shower, No tub bath, No driving * Continue Aspirin x2 weeks * Keep Aquacel dressing clean, dry and intact. * Follow up with orthopedics in 2 weeks Care Plan Goals: Restore function of right knee Health Concerns: none Plan of Treatment: Physical Therapy Pain management DVT prophylaxis
[2020-11-07] MEDS: Cholecalciferol (Vitamin D3) 25 MCG TABLET 125 MCG PO (07:56)
[2020-11-07] MEDS: PARoxetine HCL 40 MG TABLET PO (07:57)
[2020-11-07] MEDS: Omeprazole 20 MG CAPSULE.DR PO (07:57)
[2020-11-07] MEDS: Multivitamin TABLET 1 TAB PO (07:57)
[2020-11-07] MEDS: Aspirin 325 MG TABLET PO (07:57)
[2020-11-07] MEDS: oxyCODONE HCl ER 10 MG TAB.ER.12H PO (07:58)
[2020-11-07] MEDS: Pravastatin Sodium 20 MG TABLET PO (07:58)
--- NOTE | 2020-11-07 08:58 | MHC.CM.PN ---
PT DISCHARGING TODAY WITH [facility] FOR ASSISTED AND HOME PHYSICAL THERAPY, TO TRANSPORT.
[2020-11-07] MEDS: Acetaminophen 325 MG TABLET 650 MG PO (10:39)
[2020-11-07] MEDS: LORazepam 0.5 MG TABLET PO (10:40)
--- NOTE | 2020-11-07 11:01 | W.MHC.F2F ---
Service Date Service Date: 11/07/20 Reasons for Services Reason for physical therapy: home safety and mobility, therapeutic exercises, restore joint function, gait/transfer training and ADL training Reason for occupational therapy: home safety and mobility, therapeutic exercises, restore joint function, gait/transfer training and ADL training Overseeing Care: Kai Cortez Homebound: Leaving the home is medically contraindicated at this time without the asist of a device and/or another person due th the listed conditions above and below. Homebound supporting statement: Pt. is considered home bound due to recent surgery. Unable to drive, poor balance, poor gait mechanics. Certification: Based on the above findings, I certify that this patient is confined to the home and needs intermittent penitentiary care, physical therapy and/or speech therapy, or continues to need occupational therapy. The patient is under my care, and I have initiated the establishment of the plan of care. The patient will be followed by a physician who will periodically review the plan of care.
--- NOTE | 2020-11-07 14:08 | P.PNIM_ITS ---
Subjective Subjective Date of Service: 11/15/20 Interval History: htn , anemia Review of Systems Denies any chest pain or shortness of breath or abdominal pain or chills or any urinary complaints. Physical Exam Vital Signs: Vital Signs: Last Vital Signs Temp 99.0 F 11/07/20 11:24 Pulse 82 11/07/20 11:24 Resp 18 11/07/20 11:25 BP 147/72 H 11/07/20 11:24 Pulse Ox 91 L 11/07/20 10:54 Body Mass Index 25.9 Physical exam: Constitutional: Noted in acute distress Cvs: rrr, [id number] , no murmur res: clear to auscultation ,no rhonchii or wheezing abd: no rebound or guarding ,nt, bs present. ext pulses present , no cyanosis neuro: axo3 , nonfocal. Objective Data Current Medications Generic Name Dose Route Start Last Admin Trade Name Freq PRN Reason Stop Dose Admin Acetaminophen 650 mg 11/05/20 15:23 Acetaminophen 325 Mg Tablet PO Q6H PRN Pain, Mild (Pain Scale 1-3) Aspirin 325 mg 11/06/20 09:00 11/07/20 07:57 Aspirin 325 Mg Tablet PO 325 mg BID HARESH Administration Calcium Carbonate 1,000 mg 11/06/20 09:00 11/07/20 07:56 Calcium Carbonate 500 Mg Tablet PO 1,000 mg DAILY HARESH Administration Hydromorphone HCl 0.25 mg 11/05/20 15:23 Hydromorphone Hcl 0.5 Mg/0.5 Ml Syringe IVPUSH Q4H PRN Pain, Severe (Pain Scale 7-10) Multivitamins/Vitamin C 1 tab 11/06/20 09:00 11/07/20 07:57 Multivitamin Tablet PO 1 tab DAILY HARESH Administration Naloxone HCl 0.2 mg 11/05/20 15:23 Naloxone Hcl 0.4 Mg/Ml Vial IVPUSH Q2M PRN Excessive sedation or RR < 8 Non-Formulary Medication 4 mg 11/06/20 09:00 Bifidobacterium Infantis [Align] PO DAILY [facility] Omeprazole 20 mg 11/07/20 07:30 11/07/20 07:57 Omeprazole 20 Mg Capsule. PO 20 mg DAILY@0630 HARESH Administration Ondansetron HCl 4 mg 11/05/20 15:23 11/06/20 03:47 Ondansetron Hcl 4 Mg/2 Ml Vial IVPUSH 4 mg Q8H PRN Administration Nausea and Vomiting Oxycodone HCl 5 mg 11/05/20 15:23 11/06/20 18:02 Oxycodone Hcl Immed Release 5 Mg Tablet PO 5 mg Q4H PRN Administration Pain, Moderate (Pain Scale 4-6 Oxycodone HCl 10 mg 11/05/20 21:00 11/07/20 07:58 Oxycodone Hcl Er 10 Mg Tab.Er.12h PO 10 mg BID HARESH Administration Paroxetine HCl 40 mg 11/06/20 09:00 11/07/20 07:57 Paroxetine Hcl 40 Mg Tablet PO 40 mg DAILY HARESH Administration Pravastatin Sodium 20 mg 11/06/20 09:00 11/07/20 07:58 Pravastatin Sodium 20 Mg Tablet PO 20 mg DAILY HARESH Administration Senna 17.2 mg 11/05/20 15:23 Sennosides 8.6 Mg Tablet PO BEDTIME PRN Constipation Sodium Chloride 3 ml 11/05/20 16:00 11/07/20 07:59 0.9 % Sodium Chloride Flush 3 Ml Syringe IVFLUSH 3 ml QSHIFT HARESH Administration Vitamin D 125 mcg 11/06/20 09:00 11/07/20 07:56 Cholecalciferol (Vitamin D3) 25 Mcg Tablet PO 125 mcg DAILY HARESH Administration Labs CBC & Chem 7: 11/07/20 05:50 11/07/20 05:50 Assessment and Plan (1) Essential hypertension: Assessment and Plan: 65-year-old woman admitted med by Orthopedic Surgical Service and is status post right total knee arthroplasty. 1730 patient had an episode of vomiting, and dizziness while walking to BR. BP was 82/52. [place] better once in bed. 1. Probable vasovagal episode versus dehydration : imrpoved may start amlodipine. Leukocytosis seems reactive- imrpovin,patient denies any new symptoms, no fevers, no cough or phlegm or any urinary complaints. postop anemia 2.Right total knee arthroplasty. Management as per surgical team. Pain management. 3.Depression. Continue paroxetine. 4.Hyperlipidemia continue statin. DVT prophylaxis with Mechanical compression boots. Above management discussed with the primary team in detail.
== END 2020-11-07 15:04 | disposition home health service (06) | DRG 326 ==
LOC: HO.SSSA 08:06 → HO.S3 14:24
PROVIDERS: Physician Assistant; Admitting Provider Orthopaedic Surgery; PCP Internal Medicine; Visit Provider Orthopaedic Surgery
PROC: 0SRC0JA Replacement of Right Knee Joint with Synthetic Substitute, Uncemented, Open Approach (ICD-10-PCS; CPT 27447; principal; 2020-11-05 10:10)
DX: M17.11 Unilateral primary osteoarthritis, right knee (principal); E86.0 Dehydration; I95.1 Orthostatic hypotension; Z20.828 Contact with and (suspected) exposure to other viral communicable diseases; Z79.899 Other long term (current) drug therapy
CPT/HCPCS: 27447; 36415; 73560; 80048; 85025; 86850; 86900; 86901; 86923; 87635; 87640; 87641; 88305; 88311; 97110; 97116; 97162; C1776; J0690; J1100; J2250; J2370; J2405; J3010; P9016

== ENCOUNTER → 2020-11-21 12:41 | Outpatient (BNVA) | payer OTHER, SELFPAY | PROVIDERS: Visit Provider Physician Assistant ==

== ENCOUNTER 2020-12-11 15:00 | Outpatient (RCR) | payer OTHER, SELFPAY ==
--- NOTE | 2020-12-06 10:37 | MHC.PT.EP ---
[facility] [place] Office [place] Office [place] Office [address] [phone] F: [phone] F: [phone] F: [phone] F: [phone] Physical Therapy Plan of Care Date of Evaluation: 12/06/20 Date of Surgery: 11/05/20 Diagnosis: Presence of artificial knee R. Assessment: Pt is a retired 65 y/o female referred to PT s/p R TKR; DOS 11/05/20 following long Hx of chronic R knee pain resulting in decreased tolerance and ability for walking and standing for long duration, descending stairs, performing squatting activities, and heavy HH chores secondary to decreased R knee extension ROM, increased R LE tissue tension, decreased R knee and hip strength, gait abnormality, healing process and pain. Pt is highly motivated and is deemed appropriate to receive skilled PT to address her physical impairments in order to improve her functional ability. Frequency and Duration: The patient will be seen 2 x / wk x 6 wks. Short Term Goals: In 1 week: initiate HEP. In 3 weeks: Full knee extension achieved; initial 6 degrees flexion. [facility]pc Goals: In 6 weeks: I with home program. In 6 weeks: descends stairs without trunk compensation. In 6 weeks: knee ext MMT > 4+/5, initial: 4/5. In 6 weeks: Pt will be able to walk x 1 mile without difficulty; initial: moderate difficulty. Treatment Plan: Modalities to reduce pain, spasms and effusion. Manual therapy to restore motion and function. Therapeutic exercise to improve strength and flexibility. Neuromuscular re-education for posture and balance. Therapeutic activities to return to functional activities of daily living. Electronically signed by: Mookie Valdez PT. Please sign and return to therapist. Thank you for your referral.
--- NOTE | 2021-06-27 10:31 | MHC.PT.DC ---
[facility] [place] Office [place] [facility] [place] [facility] [address] Rekha Brown 140 [facility] [phone] F: [phone] F: [phone] F: [phone] F: [phone] Physical Therapy Discharge Report Diagnosis: Presence of artificial knee R. Date of Surgery: 11/05/20 Date of Evaluation: 12/06/20 Date of Discharge: 06/27/21 Treatments to Date: 2 Cancellations to Date: 0 No Shows to Date: 0 Discharge Status: Patient Elected to Stop Discharge Summary: pt elected to stop d/t increased family responsibility to care for her parents Electronically signed by: Mookie Valdez PT. Please sign and return to therapist. Thank you for your referral.
== END 2021-06-27 10:32 | disposition home or self-care (01) ==
LOC: HO.PTCHIC 15:00
PROVIDERS: PCP Internal Medicine; Visit Provider Physician Assistant
DX: Z47.1 Aftercare following joint replacement surgery (principal); Z96.651 Presence of right artificial knee joint
CPT/HCPCS: 97110; 97161

== ENCOUNTER → 2020-12-19 07:54 | Outpatient (BNVA) | payer OTHER, SELFPAY | PROVIDERS: Visit Provider Orthopaedic Surgery ==

== ENCOUNTER 2021-01-30 08:05 | Outpatient (REF) | payer OTHER, SELFPAY ==
--- NOTE | ~2021-01-30 | XR_ITS ---
EXAMINATION: BILATERAL KNEE SERIES CLINICAL INFORMATION: Pain COMPARISON: X-rays of the right knee October 2020 TECHNIQUE: 3 views of the right knee and single AP upright of the left knee FINDINGS: Right knee: Total knee arthroplasty noted with the components in usual position no periprosthetic fracture or suspicious area of lucency. There is some calcific density noted lateral to the patellofemoral joint likely dystrophic or heterotopic. There is a small joint effusion. Since the prior examination the sutures have been removed. Left knee: Limited AP projection demonstrates osteoarthritis moderate to severe in the medial compartment and mild in the lateral compartment. XR/XR knee RT 2V IMPRESSION: Right knee: Small joint effusion. Right total knee arthroplasty without complication by x-ray. Left knee: Osteoarthritis most prominent in the medial compartment moderate to severe unchanged
--- NOTE | ~2021-01-30 | XR_ITS ---
EXAMINATION: BILATERAL KNEE SERIES CLINICAL INFORMATION: Pain COMPARISON: X-rays of the right knee October 2020 TECHNIQUE: 3 views of the right knee and single AP upright of the left knee FINDINGS: Right knee: Total knee arthroplasty noted with the components in usual position no periprosthetic fracture or suspicious area of lucency. There is some calcific density noted lateral to the patellofemoral joint likely dystrophic or heterotopic. There is a small joint effusion. Since the prior examination the sutures have been removed. Left knee: Limited AP projection demonstrates osteoarthritis moderate to severe in the medial compartment and mild in the lateral compartment. XR/XR knee standing BI IMPRESSION: Right knee: Small joint effusion. Right total knee arthroplasty without complication by x-ray. Left knee: Osteoarthritis most prominent in the medial compartment moderate to severe unchanged
== END 2021-01-30 08:06 | disposition home or self-care (01) ==
LOC: HO.HOSX 08:05
PROVIDERS: Visit Provider Orthopaedic Surgery
DX: Z96.651 Presence of right artificial knee joint (principal); M25.561 Pain in right knee; I10 Essential (primary) hypertension; E78.5 Hyperlipidemia, unspecified; E87.5 Hyperkalemia
CPT/HCPCS: 73560; 73565

== ENCOUNTER 2021-08-08 14:30 | Outpatient (REF) | payer OTHER, SELFPAY ==
--- NOTE | ~2021-08-08 | MM_ITS ---
EXAMINATION: MM SCREENING DIGITAL BREAST TOMOSYNTHESIS, BILATERAL CLINICAL INFORMATION: Screening. Asymptomatic. The lifetime risk of breast cancer based on the Tyrer-Cuzick Model is 5%. COMPARISON: Mammography: 06/26/2020; outside mammography 02/08/2019, 02/03/2018, 01/28/2017 ([place]). TECHNIQUE: Digital breast tomosynthesis is performed in both the craniocaudal and mediolateral oblique views along with computer-aided detection (CAD). Synthesized 2D images are generated from the tomosynthesis. FINDINGS: The breasts are heterogeneously dense, which may obscure small masses (ACR BI-RADS breast composition Category c). There are no significant masses, abnormal calcifications, or other abnormalities. Parenchymal pattern is similar to prior studies. No developing density. The axilla and skin contours are unremarkable. MM/MM tomosynthesis screening BI IMPRESSION: No mammographic evidence of malignancy. ASSESSMENT: BI-RADS 1: Negative RECOMMENDATION: Routine annual mammography screening. This patient's information was entered into a reminder system with a target due date for their next mammogram.
== END 2021-08-08 14:31 | disposition home or self-care (01) ==
LOC: HO.MAMMO 14:30
PROVIDERS: PCP Internal Medicine; Visit Provider Internal Medicine
DX: Z12.31 Encounter for screening mammogram for malignant neoplasm of breast (principal)
CPT/HCPCS: 77063; 77067

== ENCOUNTER → 2021-09-18 10:06 | Outpatient (BNVA) | payer MEDICARE, OTHER, SELFPAY | PROVIDERS: PCP Internal Medicine; Visit Provider Obstetrics & Gynecology ==

== ENCOUNTER 2021-10-03 13:05 | Outpatient (REF) | payer MEDICARE, SELFPAY ==
--- NOTE | ~2021-10-03 | MM_ITS ---
EXAMINATION: BONE DENSITOMETRY CLINICAL INDICATION: Encounter for screening for osteoporosis. Postmenopausal. COMPARISON: This is the patient's baseline examination. TECHNIQUE: Using a Swiv[employer] DXA System (software version: 13.1) manufactured by [employer], dual-energy x-ray absorptiometry was performed of the lumbar spine and left hip. The images are of good technical quality. Summary results are attached. FINDINGS: AP SPINE L1-L3 (excluding L4): The data of L1-L4 has been changed to exclude the L4 vertebral body, because degenerative sclerosis at this level may cause overestimation of lumbar spine density. BMD 0.853 g/cm2, Z-score -1.3, T-score -2.6, osteoporosis. LEFT FEMUR, NECK: BMD 0.777 g/cm2, Z-score -0.5, T-score -1.9, osteopenia. LEFT FEMUR, TOTAL: BMD 0.828 g/cm2, Z-score -0.3, T-score -1.4, osteopenia. IDENTIFIED RISK FACTORS: Secondary osteoporosis, (early menopause). History of fracture, (adult). HISTORY OF FRACTURE: Wrist. MEDICATIONS: Calcium or multivitamin. Vitamin D. MM/XR DEXA axial skeleton IMPRESSION: 1. DIAGNOSIS: Severe osteoporosis based on the lowest T-score value of -2.6 in the lumbar spine and history of fracture applying World Health Organization criteria. 2. 10-YEAR FRACTURE RISK PREDICTION, FRAX: According to the guidelines, FRAX calculation should only be performed on patients in the osteopenia bone density category. Therefore, FRAX was not performed on this patient. 3. Treatment Recommendations: NOF guidelines recommend consideration for treatment in postmenopausal women and men age 50 and older presenting with the following: -A hip or vertebral (clinical or morphometric) fracture. -T-score less than or equal to -2.5 at the femoral neck or spine after appropriate evaluation to exclude secondary causes. -Low bone mass at the hip or spine and a 10-year fracture probability by FRAX of greater than or equal to 3% for hip fracture or greater than or equal to 20% for major osteoporotic fracture based on the [place] adapted WHO algorithm. 4. Other Recommendations: All treatment decisions require clinical judgment and consideration of individual patient factors, including patient preferences, comorbidities, previous drug use, risk factors not captured in the FRAX model (e.g. frailty, falls, vitamin D deficiency, increased bone turnover, interval significant decline in bone density) and possible under or overestimation of fracture risk by FRAX. Additional medical evaluation for secondary cause of low bone mineral density may be appropriate. FUTURE SCAN RECOMMENDATION: People with diagnosed cases of osteoporosis or at high risk for fracture should have regular bone mineral density tests. For patients eligible for Medicare, routine testing is allowed once every 2 years. The testing frequency can be increased to one year for patients who have rapidly progressing disease, those who are receiving or discontinuing medical therapy to restore bone mass, or have additional risk factors.
== END 2021-10-03 13:06 | disposition home or self-care (01) ==
LOC: HO.MAMMO 13:05
PROVIDERS: PCP Internal Medicine; Visit Provider Obstetrics & Gynecology
DX: Z13.820 Encounter for screening for osteoporosis (principal); M81.0 Age-related osteoporosis without current pathological fracture; Z78.0 Asymptomatic menopausal state; Z87.81 Personal history of (healed) traumatic fracture; Z79.899 Other long term (current) drug therapy
CPT/HCPCS: 77080

== ENCOUNTER → 2021-10-16 09:23 | Outpatient (BNVA) | payer OTHER, MEDICARE, SELFPAY | PROVIDERS: PCP Internal Medicine; Visit Provider Obstetrics & Gynecology | DX: M81.0 Age-related osteoporosis without current pathological fracture (principal) | CPT/HCPCS: 99212 ==

== ENCOUNTER 2022-01-12 08:40 | Outpatient (REF) | payer MEDICARE, OTHER, SELFPAY ==
--- NOTE | ~2022-01-12 | XR_ITS ---
EXAMINATION: XR knee RT 2V, XR knee standing BI CLINICAL INFORMATION: Pain COMPARISON: Knee radiographs 01/30/2021 TECHNIQUE: 2 views of the right knee. One view of the bilateral knees. XR/XR knee standing BI FINDINGS/IMPRESSION: Right knee: Few nonspecific calcifications are noted along the lateral aspect of the patella similar to prior which may be dystrophic or heterotopic. No acute fracture or dislocation. Status post right total knee arthroplasty in anatomic alignment. No evidence of hardware fracture or complication. Moderate suprapatellar joint effusion. Soft tissues are unremarkable. Left knee: Limited single view of the left knee demonstrates similar appearance of moderate to severe osteoarthritis predominantly involving the medial compartment where there is moderate to severe loss of joint space with medial and lateral compartment osteophytes. No appreciable fracture or dislocation. Soft tissues are unremarkable.
--- NOTE | ~2022-01-12 | XR_ITS ---
EXAMINATION: XR knee RT 2V, XR knee standing BI CLINICAL INFORMATION: Pain COMPARISON: Knee radiographs 01/30/2021 TECHNIQUE: 2 views of the right knee. One view of the bilateral knees. XR/XR knee RT 2V FINDINGS/IMPRESSION: Right knee: Few nonspecific calcifications are noted along the lateral aspect of the patella similar to prior which may be dystrophic or heterotopic. No acute fracture or dislocation. Status post right total knee arthroplasty in anatomic alignment. No evidence of hardware fracture or complication. Moderate suprapatellar joint effusion. Soft tissues are unremarkable. Left knee: Limited single view of the left knee demonstrates similar appearance of moderate to severe osteoarthritis predominantly involving the medial compartment where there is moderate to severe loss of joint space with medial and lateral compartment osteophytes. No appreciable fracture or dislocation. Soft tissues are unremarkable.
[2022-01-12 12:21] LABS: Erythrocyte Sedimentation Rate 10 MM/HR (0-20)
== END 2022-01-12 08:41 | disposition home or self-care (01) ==
LOC: HO.HOSX 08:40
PROVIDERS: PCP Internal Medicine; Visit Provider Orthopaedic Surgery
DX: T84.84XD Pain due to internal orthopedic prosthetic devices, implants and grafts, subsequent encounter (principal); Z96.651 Presence of right artificial knee joint
CPT/HCPCS: 36415; 73560; 73565; 85652; 86140; 99212

== ENCOUNTER 2022-03-30 11:51 | Outpatient (REF) | payer MEDICARE, OTHER, SELFPAY ==
--- NOTE | ~2022-03-30 | XR_ITS ---
EXAMINATION: KNEE X-RAY CLINICAL INFORMATION: Knee pain COMPARISON: Previous x-ray December 2021 TECHNIQUE: Standing AP view of both knees and lateral and sunrise view of the left knee FINDINGS: Left knee: Bone alignment is normal. No fracture or dislocation is seen. There is arthritis at the patellofemoral and femoral tibial joints with joint space narrowing and osteophyte formation. There is a moderate joint effusion. There is a right knee replacement in satisfactory position. XR/XR knee LT 2V IMPRESSION: Left knee arthritis and joint effusion. Satisfactory appearance of right knee replacement.
--- NOTE | ~2022-03-30 | XR_ITS ---
EXAMINATION: KNEE X-RAY CLINICAL INFORMATION: Knee pain COMPARISON: Previous x-ray December 2021 TECHNIQUE: Standing AP view of both knees and lateral and sunrise view of the left knee FINDINGS: Left knee: Bone alignment is normal. No fracture or dislocation is seen. There is arthritis at the patellofemoral and femoral tibial joints with joint space narrowing and osteophyte formation. There is a moderate joint effusion. There is a right knee replacement in satisfactory position. XR/XR knee standing BI IMPRESSION: Left knee arthritis and joint effusion. Satisfactory appearance of right knee replacement.
== END 2022-03-30 11:52 | disposition home or self-care (01) ==
LOC: HO.HOSX 11:51
PROVIDERS: Visit Provider Orthopaedic Surgery
DX: M17.12 Unilateral primary osteoarthritis, left knee (principal); Z96.651 Presence of right artificial knee joint
CPT/HCPCS: 20610; 73560; 73565; 99212; J1100

== ENCOUNTER 2022-08-12 14:35 | Outpatient (REF) | payer MEDICARE, OTHER, SELFPAY ==
--- NOTE | ~2022-08-12 | MM_ITS ---
EXAMINATION: MM SCREENING DIGITAL BREAST TOMOSYNTHESIS, BILATERAL CLINICAL INFORMATION: Screening. Asymptomatic. The lifetime risk of breast cancer based on the Tyrer-Cuzick Model is 2%. COMPARISON: Mammography: 08/08/2021, 06/26/2020, 02/08/2019 TECHNIQUE: Digital breast tomosynthesis is performed in both the craniocaudal and mediolateral oblique views along with computer-aided detection (CAD). Synthesized 2D images are generated from the tomosynthesis. FINDINGS: The breasts are heterogeneously dense, which may obscure small masses (ACR BI-RADS breast composition Category c). There are no significant masses, abnormal calcifications, or other abnormalities. Breast tissue composition borders on average fibroglandular. No developing density or architectural abnormality. No significant changes. MM/MM tomosynthesis screening BI IMPRESSION: No mammographic evidence of malignancy. ASSESSMENT: BI-RADS 1: Negative RECOMMENDATION: Routine annual mammography screening. This patient's information was entered into a reminder system with a target due date for their next mammogram.
== END 2022-08-12 14:36 | disposition home or self-care (01) ==
LOC: HO.MAMMO 14:35
PROVIDERS: PCP Internal Medicine; Visit Provider Internal Medicine
DX: Z12.31 Encounter for screening mammogram for malignant neoplasm of breast (principal)
CPT/HCPCS: 77063; 77067

== ENCOUNTER 2022-09-03 | Outpatient (REF) | payer MEDICARE, OTHER, SELFPAY ==
--- NOTE | 2022-07-20 08:57 | ECG_ITS ---
Test Reason : palpitations Blood Pressure : / mmHG Vent. Rate : 069 BPM Atrial Rate : 069 BPM P-R Int : 148 ms QRS Dur : 090 ms QT Int : 422 ms P-R-T Axes : 050 024 049 degrees QTc Int : 452 ms Normal sinus rhythm Possible Left atrial enlargement Borderline ECG When compared with ECG of 07-OCT-2020 10:23, No significant change was found Referred By: Joi Russell Electronically Signed By:GRICELDA SPARKS
[2022-07-20 09:11] LABS: MANUAL DIFF FLAG NO
[2022-07-20 09:35] LABS: Basophils Absolute Auto 0.1 X10*3/uL (0.0-0.2); Basophils Percent Auto 0.7 % (0-2); Eosinophils Absolute Auto 0.2 X10*3/uL (0.0-0.4); Eosinophils Percent Auto 1.7 % (0-4); Hematocrit 45.2 % (37.0-47.0); Hemoglobin 15.1 g/dl (12.0-16.0); Imm Gran Abs Auto 0.06 X10*3/uL (0.00-0.03); Imm Gran Pct Auto 0.6 % (0.0-0.4); Lymphocytes Absolute Auto 3.5 X10*3/uL (1.2-4.9); Lymphocytes Percent Auto 36.5 % (20-40); Mean Corpuscular HGB Conc 33.4 g/dl (31.0-35.0); Mean Corpuscular Hemoglobin 31.7 pg (27.0-33.0); Mean Platelet Volume 9.6 fL (9.4-12.3); Monocytes Absolute Auto 0.7 X10*3/uL (0.1-1.2); Monocytes Percent Auto 7.8 % (2-11); Neutrophils Percent Auto 52.7 % (45-73); Platelet Count 281 X10*3/uL (160-400); Red Blood Count 4.76 X10*6/uL (4.20-5.50); Red Cell Distribution Width 12.1 % (11.0-16.0); White Blood Count 9.5 X10*3/uL (4.8-10.8)
[2022-07-20 10:02] LABS: Alanine Aminotransferase 36 U/L (0-31); Albumin Level 4.4 g/dL (3.5-5.0); Alkaline Phosphatase 54 U/L (39-117); Anion Gap 14 (12-20); Aspartate Amino Transferase 23 U/L (5-31); Bilirubin Total 0.7 mg/dL (0.0-1.0); Blood Urea Nitrogen 17 mg/dL (9-16); Carbon Dioxide 29 mmol/L (22-29); Chloride 102 mmol/L (96-108); Cholesterol 193 mg/dL; Estimated Glomerular Filt Rate > 60; Glucose Fasting 103 mg/dL (60-99); HDL Cholesterol 46 mg/dL; LDL Cholesterol Calculated 121 mg/dl; Potassium 4.7 mmol/L (3.3-5.1); Sodium 140 mmol/L (135-145); Total Protein 7.1 g/dL (6.5-8.0); Triglycerides 132 mg/dL
== END 2022-09-03 00:01 | disposition home or self-care (01) ==
LOC: HO.PAT
PROVIDERS: PCP Internal Medicine; Visit Provider Orthopaedic Surgery
DX: Z01.818 Encounter for other preprocedural examination (principal); M17.12 Unilateral primary osteoarthritis, left knee; R00.2 Palpitations
CPT/HCPCS: 36415; 80053; 80061; 85025; 93005

== ENCOUNTER 2022-09-11 04:16 | Emergency (ER) | payer MEDICARE, OTHER, SELFPAY ==
[2022-09-11 04:30] VITALS: BP 153/97; PULSE 95; RESP 16; TEMP 36.7; O2SAT 96; BMI 25.0
--- NOTE | 2022-09-11 04:32 | ED_ITS ---
HPI - Psych General Chief Complaint: Anxiety Stated Complaint: anxiety Time Seen by Provider: 09/11/22 04:31 Source: patient Mode of arrival: ambulatory Limitations: no limitations History of Present Illness HPI Narrative: Patient with history of anxiety on paroxetine feel very anxious does not have or take lorazepam at home very tearful anxious no SI or depression no headache no chest pain or palpitation no suicidal feeling Related Data Home Medications Medication Instructions Recorded Confirmed Bifidobacterium infantis 4 mg 4 mg PO DAILY 10/24/20 09/07/22 capsule (Align) calcium carbonate 600 mg calcium 1,200 mg PO DAILY 10/24/20 09/07/22 (1,500 mg) tablet (Calcium) cholecalciferol (vitamin D3) 125 125 mcg PO DAILY 10/24/20 09/07/22 mcg (5,000 unit) tablet (Vitamin D3) multivitamin 1 tab PO DAILY 10/24/20 09/07/22 Previous Rx's Medication Instructions Recorded methylcellulose (laxative) 500 mg 1,000 mg PO BID constipation 30 07/31/20 tablet (Citrucel) days #120 tabs amlodipine 5 mg tablet 5 mg PO DAILY 3 months #90 tabs 03/21/22 pravastatin 20 mg tablet 20 mg PO DAILY #30 caps 07/08/22 alendronate 70 mg tablet (Fosamax) 70 mg PO QWEEK 90 days #13 tabs 07/27/22 paroxetine HCl 10 mg tablet 10 mg PO DAILY 90 days #90 tabs 09/02/22 paroxetine HCl 40 mg tablet 40 mg PO DAILY 90 days #90 tabs 09/02/22 trazodone 50 mg tablet 50 mg PO BEDTIME PRN sleep 90 days 09/03/22 #90 tabs lorazepam 0.5 mg tablet (Ativan) 0.5 mg PO BEDTIME PRN anxiety #10 09/11/22 tabs Allergies Allergy/AdvReac Type Severity Reaction Status Date / Time No Known Allergies Allergy Verified 09/07/22 14:18 [No Known Allergies*] Review of Systems Review of Systems: Yes all other systems are reviewed and are negative [facility] Past Medical History Medical History Depression Diverticulitis Dyslipidemia Essential hypertension History of anxiety Hyperkalemia Osteoarthritis (arthritis due to wear and tear of joints) PAC (premature atrial contraction) Surgical History History of carpal tunnel release History of total right knee replacement Hx of colonoscopy Family History Family History Mother Dementia Father No problems noted. Social History Social History Housing: House Are you a primary rn homecare to a significant other at home: No Do you presently have visiting nurse or other home services: No Alcohol intake: current Alcohol intake frequency: holidays/special occasions only Alcohol type: wine Patient Tobacco Use Status: Never used Tobacco e-Cigarette/Vaping Use: Never Used Second Hand Smoke Exposure: No Advance Directives: Yes Advance Directives on File: Yes Advance Directives Date on File: 07/31/20 service: No Current occupational status: retired Current occupation: Right Handed Cognitive needs: No Hearing needs: No Vision needs: No Physical Exam Vital Signs: Vital Signs: Last Vital Signs Temp 98.1 F 09/11/22 04:30 Pulse 95 09/11/22 04:30 Resp 16 09/11/22 04:30 BP 153/97 H 09/11/22 04:30 Pulse Ox 96 09/11/22 04:30 O2 Del Method 09/11/22 04:30 BMI result Body Mass Index 25.0 Appearance: Alert. Oriented X3. Very anxious and tearful ENT: Pharynx normal. Oral Mucosa moist Neck: Normal inspection. Neck supple. CVS: Normal heart rate and rhythm. Pulses normal. Respiratory: No respiratory distress. Equal air entry bilateral, no wheezing/rales/rhonchi Abdomen: Soft and nontender. Bowel sounds are present, Skin: Skin warm and dry. Normal skin color. Normal skin turgor. Extremities: No lower extremity edema. No calf tenderness Neuro: Oriented X 3. No motor deficit. No sensory deficit. Medications Administered Discontinued Medications Generic Name Dose Route Start Last Admin Trade Name Freq PRN Reason Stop Dose Admin Lorazepam 2 mg 09/11/22 04:31 09/11/22 04:36 Lorazepam 1 Mg Tablet PO 09/11/22 04:32 2 mg ONCE ONE Administration MDM - Psych MDM Narrative Medical decision making narrative: Patient feeling much better after taking Ativan to relax will discharge patient home Discharge Plan Discharge Clinical Impression: Panic disorder Patient Disposition: Home, Self-Care Instructions: Panic Attack (ED) Additional Instructions: Rest at home Continue medications Ativan for severe anxiety Prescriptions: New lorazepam [Ativan] 0.5 mg tablet 0.5 mg PO BEDTIME PRN (Reason: anxiety) Qty: 10 0RF No Action Citrucel 500 mg tablet 1,000 mg PO BID 30 Days Qty: 120 6RF Rx Instructions: Take two tablets by mouth twice a day amlodipine 5 mg tablet 5 mg PO DAILY 90 Days Qty: 90 1RF Rx Instructions: patient is advised that she has an order for labs non fasting and should get this done to evaluate her potassium level and she understands/agrees pravastatin 20 mg tablet 20 mg PO DAILY Qty: 30 6RF paroxetine HCl 10 mg tablet 10 mg PO DAILY 90 Days Qty: 90 1RF paroxetine HCl 40 mg tablet 40 mg PO DAILY 90 Days Qty: 90 3RF trazodone 50 mg tablet 50 mg PO BEDTIME PRN (Reason: sleep) 90 Days Qty: 90 0RF multivitamin Tablet 1 tab PO DAILY calcium carbonate [Calcium 600] 600 mg calcium (1,500 mg) Tablet 1,200 mg PO DAILY Align 4 mg Capsule 4 mg PO DAILY cholecalciferol (vitamin D3) [Vitamin D3] 125 mcg (5,000 unit) Tablet 125 mcg PO DAILY alendronate [Fosamax] 70 mg tablet 70 mg PO QWEEK 90 Days Qty: 13 1RF
[2022-09-11] MEDS: LORazepam 1 MG TABLET 2 MG PO (04:36)
--- NOTE | 2022-09-11 06:19 | PC.NURSE ---
pt states she feels safe to go home
== END 2022-09-11 06:20 | disposition home or self-care (01) ==
PROVIDERS: Emergency Provider Internal Medicine
DX: F41.0 Panic disorder [episodic paroxysmal anxiety] (principal); F41.9 Anxiety disorder, unspecified; I10 Essential (primary) hypertension; E78.5 Hyperlipidemia, unspecified; Z79.02 Long term (current) use of antithrombotics/antiplatelets; Z79.899 Other long term (current) drug therapy
CPT/HCPCS: 36415; 70450; 71045; 80048; 80061; 80076; 80143; 80179; 80307; 81001; 82077; 82607; 82746; 83036; 83735; 84439; 84443; 84484; 85025; 87635; 93005; 99283; 99284; 99285

== ENCOUNTER 2022-09-14 09:45 | Inpatient (IN) | payer MEDICARE, OTHER, SELFPAY ==
--- NOTE | ~2022-09-14 | CT_ITS ---
CT HEAD WITHOUT IV CONTRAST CLINICAL INFORMATION: Question near syncope. Headache. COMPARISON: None available. TECHNIQUE: Contiguous axial imaging was performed from the skull base to vertex without intravenous administration of contrast. This CT examination was performed using dose optimization techniques as appropriate, variously including the following: *Automated exposure control *Adjustment of mA and/or kV according to patient size (this includes techniques or standardized protocols for targeted exams where dose is matched to indication/reason for exam; i.e. extremities or head) *Use of iterative reconstruction technique FINDINGS: There is no intracranial hemorrhage, hydrocephalus, extra-axial surface collection, midline shift, or other herniation pattern. [place] to white matter differentiation is diffusely maintained without evidence of an evolved acute territorial infarct. The basilar cisterns are preserved. No significant soft tissue abnormality. No acute osseous abnormality. The paranasal sinuses and the mastoid air cells are well aerated. 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 CT/CT head/brain wo IV con IMPRESSION: - No acute intracranial abnormality. 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
--- NOTE | ~2022-09-14 | XR_ITS ---
EXAMINATION: XR CHEST CLINICAL INFORMATION: Near syncope. COMPARISON: 02/14/2020 chest radiographs. TECHNIQUE: Frontal view of the chest was obtained. FINDINGS: No significant abnormality is noted involving the heart, lungs, mediastinum, bony thorax or soft tissues. XR/XR chest 1V IMPRESSION: No acute cardiopulmonary process.
[2022-09-14 10:02] VITALS: BP 173/113; PULSE 110; RESP 18; TEMP 35.6; O2SAT 97; BMI 24.3
[2022-09-14 10:29] LABS: Eosinophils Percent Auto 0.3 % (0-4); Hematocrit 47.6 % (37.0-47.0); Imm Gran Abs Auto 0.09 X10*3/uL (0.00-0.03); Imm Gran Pct Auto 0.6 % (0.0-0.4); MANUAL DIFF FLAG SCAN; Mean Corpuscular Volume 92.2 fL (80.0-98.0); PLT CLUMP 1; Red Blood Count 5.16 X10*6/uL (4.20-5.50); Red Cell Distribution Width 11.9 % (11.0-16.0); SCAN SMEAR FLAG 1
[2022-09-14 10:31] LABS: Basophils Absolute Auto 0.1 X10*3/uL (0.0-0.2); Basophils Percent Auto 0.4 % (0-2); Hemoglobin 16.3 g/dl (12.0-16.0); Lymphocytes Absolute Auto 3.8 X10*3/uL (1.2-4.9); Lymphocytes Percent Auto 26.3 % (20-40); Mean Corpuscular HGB Conc 34.2 g/dl (31.0-35.0); Mean Corpuscular Hemoglobin 31.6 pg (27.0-33.0); Monocytes Absolute Auto 1.1 X10*3/uL (0.1-1.2); NRBC Pct Auto 0.2 /100WBC (0.0-0.2); Neutrophils Absolute Auto 9.2 x10*3/uL (2.0-8.3); Neutrophils Percent Auto 64.4 % (45-73)
[2022-09-14 10:43] LABS: White Blood Count 14.3 X10*3/uL (4.8-10.8)
[2022-09-14 10:52] LABS: Platelet Count 316 X10*3/uL (160-400); SLIDE REVIEW VERIFIED
[2022-09-14 10:53] LABS: Anion Gap 16 (12-20); Blood Urea Nitrogen 18 mg/dL (9-16); Calcium 10.3 mg/dL (8.4-10.2); Carbon Dioxide 27 mmol/L (22-29); Chloride 104 mmol/L (96-108); Creatinine Clr Calc Pharmacy 68.9; Estimated Glomerular Filt Rate > 60; Glucose Random 96 mg/dL (60-115); Potassium 4.3 mmol/L (3.3-5.1); Sodium 143 mmol/L (135-145)
--- NOTE | 2022-09-14 11:09 | PC.NURSE ---
pt in bed 8 w , tearful, awaiting provider eval
[2022-09-14 11:28] LABS: Acetaminophen LAB < 1 mcg/mL (<30); Alanine Aminotransferase 33 U/L (0-31); Alkaline Phosphatase 51 U/L (39-117); Aspartate Amino Transferase 22 U/L (5-31); Bilirubin Direct 0.3 mg/dL (0.0-0.5); Bilirubin Total 0.7 mg/dL (0.0-1.0); Ethanol < 10 mg/dL; Salicylate < 5.0 mg/dL (15-30)
[2022-09-14 11:42] LABS: Appearance Urine Clear; Color Urine Yellow; Glucose Urine UA Negative (Negative); Leukocyte Esterase Urine Negative (Negative); Nitrite Urine Negative (Negative); UMIC TRIGGER UACC YES; Urine Blood Trace (Negative); Urine Ketones 15 mg/dL (Negative); Urine Protein Negative (Neg-Trace)
[2022-09-14 11:46] LABS: Bacteria Urine None Seen (None Seen); Hyaline Casts Urine 0-2 /LPF (0-2); Squamous Epithelial Cell Urine 0-2 /HPF (0-2); WBC Urine 0-5 /HPF (0-5)
[2022-09-14 11:49] LABS: Amphetamine Screen Urine Not Detected (Not Detect); Barbiturates, Urine Not Detected (Not Detect); Benzodiazepines Screen Urine Not Detected (Not Detect); Cannabinoid Screen Urine Not Detected (Not Detect); Cocaine Screen Urine Not Detected (Not Detect); Fentanyl, urine Not Detected (Not Detect); Opiate Screen Urine Not Detected (Not Detect); Phencyclidine Screen Urine Not Detected (Not Detect)
[2022-09-14] MEDS: LORazepam 1 MG TABLET PO (11:50)
[2022-09-14 12:13] VITALS: BP 146/87; BP 158/95; PULSE 79; PULSE 82
[2022-09-14 12:14] VITALS: BP 131/87; PULSE 90
[2022-09-14 12:28] LABS: TSH reflex Free T4 1.97 uIU/mL (0.32-4.0)
--- NOTE | 2022-09-14 13:11 | ED_ITS ---
HPI - Psych General Chief Complaint: Psychiatric Symptoms Stated Complaint: Psych eval Time Seen by Provider: 09/14/22 10:44 Source: patient and family Mode of arrival: ambulatory History of Present Illness HPI Narrative: 66-year-old female with a past medical history of depression, diverticulitis, HLD, HTN, anxiety, osteoarthritis, PACs, presenting to the ED complaining of increasing anxiety and depression with suicidal ideations with plan to overdose on her Paxil this morning. Reports her Paxil was recently increased about 10 days ago from 40mg to 50mg which believes is worsening symptoms. States after taking her medications this morning felt lightheaded and had near syncopal episode with fall onto back, denies head trauma or LOC, was ambulatory after incident. Denies taking anticoagulation. Reports mild back pain. Denies neck pain, CP/SOB, abdominal pain, nausea/vomiting, urine incontinence retention, HI, EtOH or illicit drug use MD complaint: altered mental status Onset (ago): day(s) Related Data Home Medications Medication Instructions Recorded Confirmed Bifidobacterium infantis 4 mg 4 mg PO DAILY 10/24/20 09/07/22 capsule (Align) calcium carbonate 600 mg calcium 1,200 mg PO DAILY 10/24/20 09/07/22 (1,500 mg) tablet (Calcium) cholecalciferol (vitamin D3) 125 125 mcg PO DAILY 10/24/20 09/07/22 mcg (5,000 unit) tablet (Vitamin D3) multivitamin 1 tab PO DAILY 10/24/20 09/07/22 Previous Rx's Medication Instructions Recorded methylcellulose (laxative) 500 mg 1,000 mg PO BID constipation 30 07/31/20 tablet (Citrucel) days #120 tabs amlodipine 5 mg tablet 5 mg PO DAILY 3 months #90 tabs 03/21/22 pravastatin 20 mg tablet 20 mg PO DAILY #30 caps 07/08/22 alendronate 70 mg tablet (Fosamax) 70 mg PO QWEEK 90 days #13 tabs 07/27/22 paroxetine HCl 10 mg tablet 10 mg PO DAILY 90 days #90 tabs 09/02/22 paroxetine HCl 40 mg tablet 40 mg PO DAILY 90 days #90 tabs 09/02/22 trazodone 50 mg tablet 50 mg PO BEDTIME PRN sleep 90 days 09/03/22 #90 tabs lorazepam 0.5 mg tablet (Ativan) 0.5 mg PO BEDTIME PRN anxiety #10 09/11/22 tabs Allergies Allergy/AdvReac Type Severity Reaction Status Date / Time No Known Allergies Allergy Verified 09/07/22 14:18 [No Known Allergies*] Review of Systems Review of Systems: Constitutional: No Fever, No Chills, No Fatigue, No Malaise ENT/Mouth: No Ear Pain, No Nasal Congestion, No sore throat, No Rhinorrhea, No Swallowing Difficulty Eyes: No Eye Pain, No Swelling, No Redness, No Vision Changes Cardiovascular: No Chest Pain, No SOB, No Dyspnea on Exertion, No Orthopnea, No Edema, No Palpitations Respiratory: No Cough, No Sputum, No Dyspnea Gastrointestinal: No Nausea, No Vomiting, No Diarrhea, No Constipation, No Abdominal pain Genitourinary: No Dysuria, No Urinary Frequency, No Hematuria, No Urinary Incontinence/retention, No Flank Pain Musculoskeletal: + joint pain, No Myalgias, No Joint Swelling Skin: No Skin Lesions, No rash Neuro: No Weakness, No Numbness, No Paresthesias, No Loss of Consciousness, No Dizziness, No Headache Psych: + Anxiety/Panic, No Depression, + SI, No HI/AH/VH, No Social Issues Yes all other systems are reviewed and are negative Constitutional: Constitutional: Reports as per [facility] Past Medical History Attestation statement: The following information was validated with the patient. Medical History Depression Diverticulitis Dyslipidemia Essential hypertension History of anxiety Hyperkalemia Osteoarthritis (arthritis due to wear and tear of joints) PAC (premature atrial contraction) Surgical History History of carpal tunnel release History of total right knee replacement Hx of colonoscopy Family History Family History Mother Dementia Father No problems noted. Social History Social History Housing: House Are you a primary career and technology education teacher to a significant other at home: No Do you presently have visiting nurse or other home services: No Alcohol intake: current Alcohol intake frequency: does not drink Alcohol type: wine Patient Tobacco Use Status: Never used Tobacco e-Cigarette/Vaping Use: Never Used Second Hand Smoke Exposure: No Advance Directives: Yes Advance Directives on File: Yes Advance Directives Date on File: 07/31/20 service: No Current occupational status: retired Current occupation: Right Handed Cognitive needs: No Hearing needs: No Vision needs: No Physical Exam Vital Signs: Vital Signs: Last Vital Signs Temp 96.1 F L 09/14/22 10:02 Pulse 72 09/14/22 16:46 Resp 18 09/14/22 10:02 BP 125/79 09/14/22 16:46 Pulse Ox 97 09/14/22 10:02 O2 Del Method 09/14/22 10:02 BMI result Body Mass Index 24.3 Const: Other: Tearful General: cooperative, healthy appearing, no acute distress and anxious Orientation/consciousness: patient oriented x3 Limitations: no limitations HEENT: Head: Yes normal to inspection and Yes atraumatic Ears: hearing grossly normal bilaterally General nose exam: Normal external nose present Face and sinus: Yes normal facial exam Mouth: Normal oral and palatal mucosa present Throat: Yes posterior oropharynx normal, Yes tonsils normal and Yes uvula midline Eyes: General: appearance normal, both eyes and all related structures Pupils: Equal, round and reactive pupils present EOM: EOMs intact bilaterally Neck: Other: No midline cervical spinous tenderness Neck: Yes normal visual inspection and Yes no meningeal signs Resp: Effort & Inspection: normal respiratory effort and no respiratory distress Auscultation: clear to auscultation bilaterally, no crackles, no rales, no rhonchi and no wheezes Cardio: Rate: regular rate Heart sounds: S1 normal heart sound present and S2 normal heart sound present GI: Inspection: Yes normal to inspection Palpation (GI): Soft to palpation, nontender, no guarding and not rigid Back/Spine/Pelvis: Other: No midline thoracic/lumbar spinous tenderness/step-off or deformit. No appreciable back tenderness on exam Skin: Rashes: no rashes Wounds: no wounds Neuro: General: patient oriented x3, gait normal, tone normal, moves all ex tremities, no meningeal signs, no focal motor deficits and CN's II-XI intact bilaterally Cranial nerves: Yes CN's II-XII intact bilaterally and Yes Equal, round and reactive pupils present Cognition (Neuro): normal cognition Gait exam (Neuro): Normal gait present Motor exam (neuro): 5/5 motor strength present throughout Extrem: General: Yes normal to inspection Course Course Course Narrative: -1347--leukocytosis of 14.3 likely reactive, low suspicion for severe sepsis. Labs otherwise unremarkable, ALT at baseline. -UA with RBCs/not infected. Tox screen negative CT head/brain wo IV con IMPRESSION: - No acute intracranial abnormality. 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 ? -1348--patient was evaluated by care team and will be an inpatient bed search -1509--repeat troponin without 50% rise, CO unlikely -orthostatic vital signs positive, and patient is symptomatic >> pushing oral fluids and will repeat -repeat orthostatics improved, still slightly positive after p.o. IVF. Patient asymptomatic with these orthostatics. Patient admitted to psychiatric unit upstairs. Will continue to encourage oral fluid intake Medications Administered Discontinued Medications Generic Name Dose Route Start Last Admin Trade Name Freq PRN Reason Stop Dose Admin Lorazepam 1 mg 09/14/22 11:47 09/14/22 11:50 Lorazepam 1 Mg Tablet PO 09/14/22 11:48 1 mg ONCE ONE Administration MDM - Psych MDM Narrative Medical decision making narrative: 66-year-old female with a past medical history of depression, diverticulitis, HLD, HTN, anxiety, osteoarthritis, PACs, presenting to the ED complaining of increasing anxiety and depression with suicidal ideations with plan to overdose on her Paxil this morning. States after taking her medications this morning felt lightheaded and had near syncopal episode with fall onto back, denies head trauma or LOC. on exam hypertensive, tachycardic, tearful, anxious and worked up during evaluation, depressed/suicidal. No focal neuro deficits, no midline spinous tenderness throughout. Concern for anxiety/panic reaction vs vasovagal symptom vs ACS. Lower suspicion for PE. Rule out metabolic and infectious etiologies. Lower suspicion for ICH Plan: EKG, labs, UA, head CT, CXR, orthostatics, drug screen, crisis consult Differential Diagnosis Differential diagnosis: Likely suicidal ideation, depression, acute anxiety and substance abuse Medical Records Attestation: I reviewed the patient's medical records. Lab Data Attestation: I reviewed the patient's lab results. Result diagrams: 09/14/22 10:18 09/14/22 10:18 Labs: Lab Results 09/14/22 09/14/22 09/14/22 Range/Units 10:18 10:18 10:18 WBC 14.3 H (4.8-10.8) X10*3/uL RBC 5.16 (4.20-5.50) X10*6/uL Hgb 16.3 H (12.0-16.0) g/dl Hct 47.6 H (37.0-47.0) % MCV 92.2 (80.0-98.0) fL MCH 31.6 (27.0-33.0) pg MCHC 34.2 (31.0-35.0) g/dl RDW 11.9 (11.0-16.0) % Plt Count 316 (160-400) X10*3/uL MPV 10.0 (9.4-12.3) fL Immature Gran % (Auto) 0.6 H (0.0-0.4) % Neut % (Auto) 64.4 (45-73) % Lymph % (Auto) 26.3 (20-40) % [place] % (Auto) 8.0 (2-11) % Eos % (Auto) 0.3 (0-4) % Baso % (Auto) 0.4 (0-2) % Lymph # (Auto) 3.8 (1.2-4.9) X10*3/uL [place] # (Auto) 1.1 (0.1-1.2) X10*3/uL Eos # (Auto) 0.0 (0.0-0.4) X10*3/uL Baso # (Auto) 0.1 (0.0-0.2) X10*3/uL Abs Immat Gran (auto) 0.09 H (0.00-0.03) X10*3/uL Absolute Neuts (auto) 9.2 H (2.0-8.3) x10*3/uL Absolute Nucleated RBC 0.030 H (0.0-0.012) X10*3/uL Nucleated RBC % (auto) 0.2 (0.0-0.2) /100WBC Smear Tech's Comments VERIFIED Sodium 143 (135-145) mmol/L Potassium 4.3 (3.3-5.1) mmol/L Chloride 104 (96-108) mmol/L Carbon Dioxide 27 (22-29) mmol/L Anion Gap 16 (12-20) BUN 18 H (9-16) mg/dL Creatinine 0.76 (0.5-1.4) mg/dL Estim Creat Clear Calc 68.9 Estimated GFR > 60 Random Glucose 96 (60-115) mg/dL Calcium 10.3 H (8.4-10.2) mg/dL Magnesium 2.0 (1.6-2.6) mg/dL Total Bilirubin 0.7 (0.0-1.0) mg/dL Direct Bilirubin 0.3 (0.0-0.5) mg/dL AST 22 (5-31) U/L ALT 33 H (0-31) U/L Alkaline Phosphatase 51 (39-117) U/L Troponin I High Sens 7.6 (<3.5-17.0) ng/L Total Protein 8.0 (6.5-8.0) g/dL Albumin 5.0 (3.5-5.0) g/dL TSH 1.97 (0.32-4.0) uIU/mL Urine Color Urine Appearance Urine pH (5.0-9.0) Ur Specific [place] (1.005-1.025) Urine Protein (Neg-Trace) mg/dL Urine Glucose (UA) (Negative) mg/dL Urine Ketones (Negative) mg/dL Urine Blood (Negative) Urine Nitrite (Negative) Ur Leukocyte Esterase (Negative) Urine RBC (0-2) /HPF Urine WBC (0-5) /HPF Ur Squamous Epith Cells (0-2) /HPF Urine Bacteria (None Seen) Hyaline Casts (0-2) /LPF Salicylates < 5.0 L (15-30) mg/dL Urine Opiates Screen (Not Detect) Urine Fentanyl Screen (Not Detect) Acetaminophen < 1 (<30) mcg/mL Ur Barbiturates Screen (Not Detect) Ur Phencyclidine Scrn (Not Detect) Ur Amphetamines Screen (Not Detect) U Benzodiazepines Scrn (Not Detect) Urine Cocaine Screen (Not Detect) U Marijuana (THC) Screen (Not Detect) Ethyl Alcohol < 10 mg/dL COVID-19 (JANET) (Negative) COVID-19 Clin Com 09/14/22 09/14/22 09/14/22 Range/Units 11:33 11:33 12:51 WBC (4.8-10.8) X10*3/uL RBC (4.20-5.50) X10*6/uL Hgb (12.0-16.0) g/dl Hct (37.0-47.0) % MCV (80.0-98.0) fL MCH (27.0-33.0) pg MCHC (31.0-35.0) g/dl RDW (11.0-16.0) % Plt Count (160-400) X10*3/uL MPV (9.4-12.3) fL Immature Gran % (Auto) (0.0-0.4) % Neut % (Auto) (45-73) % Lymph % (Auto) (20-40) % [place] % (Auto) (2-11) % Eos % (Auto) (0-4) % Baso % (Auto) (0-2) % Lymph # (Auto) (1.2-4.9) X10*3/uL [place] # (Auto) (0.1-1.2) X10*3/uL Eos # (Auto) (0.0-0.4) X10*3/uL Baso # (Auto) (0.0-0.2) X10*3/uL Abs Immat Gran (auto) (0.00-0.03) X10*3/uL Absolute Neuts (auto) (2.0-8.3) x10*3/uL Absolute Nucleated RBC (0.0-0.012) X10*3/uL Nucleated RBC % (auto) (0.0-0.2) /100WBC Smear Tech's Comments Sodium (135-145) mmol/L Potassium (3.3-5.1) mmol/L Chloride (96-108) mmol/L Carbon Dioxide (22-29) mmol/L Anion Gap (12-20) BUN (9-16) mg/dL Creatinine (0.5-1.4) mg/dL Estim Creat Clear Calc Estimated GFR Random Glucose (60-115) mg/dL Calcium (8.4-10.2) mg/dL Magnesium (1.6-2.6) mg/dL Total Bilirubin (0.0-1.0) mg/dL Direct Bilirubin (0.0-0.5) mg/dL AST (5-31) U/L ALT (0-31) U/L Alkaline Phosphatase (39-117) U/L Troponin I High Sens (<3.5-17.0) ng/L Total Protein (6.5-8.0) g/dL Albumin (3.5-5.0) g/dL TSH (0.32-4.0) uIU/mL Urine Color Yellow Urine Appearance Clear Urine pH 7.0 (5.0-9.0) Ur Specific [place] 1.020 (1.005-1.025) Urine Protein Negative (Neg-Trace) mg/dL Urine Glucose (UA) Negative (Negative) mg/dL Urine Ketones 15 (Negative) mg/dL Urine Blood Trace H (Negative) Urine Nitrite Negative (Negative) Ur Leukocyte Esterase Negative (Negative) Urine RBC 6-10 H (0-2) /HPF Urine WBC 0-5 (0-5) /HPF Ur Squamous Epith Cells 0-2 (0-2) /HPF Urine Bacteria None Seen (None Seen) Hyaline Casts 0-2 (0-2) /LPF Salicylates (15-30) mg/dL Urine Opiates Screen Not Detected (Not Detect) Urine Fentanyl Screen Not Detected (Not Detect) Acetaminophen (<30) mcg/mL Ur Barbiturates Screen Not Detected (Not Detect) Ur Phencyclidine Scrn Not Detected (Not Detect) Ur Amphetamines Screen Not Detected (Not Detect) U Benzodiazepines Scrn Not Detected (Not Detect) Urine Cocaine Screen Not Detected (Not Detect) U Marijuana (THC) Screen Not Detected (Not Detect) Ethyl Alcohol mg/dL COVID-19 (JANET) Negative (Negative) COVID-19 Clin Com See Note 09/14/22 Range/Units 14:23 WBC (4.8-10.8) X10*3/uL RBC (4.20-5.50) X10*6/uL Hgb (12.0-16.0) g/dl Hct (37.0-47.0) % MCV (80.0-98.0) fL MCH (27.0-33.0) pg MCHC (31.0-35.0) g/dl RDW (11.0-16.0) % Plt Count (160-400) X10*3/uL MPV (9.4-12.3) fL Immature Gran % (Auto) (0.0-0.4) % Neut % (Auto) (45-73) % Lymph % (Auto) (20-40) % [place] % (Auto) (2-11) % Eos % (Auto) (0-4) % Baso % (Auto) (0-2) % Lymph # (Auto) (1.2-4.9) X10*3/uL [place] # (Auto) (0.1-1.2) X10*3/uL Eos # (Auto) (0.0-0.4) X10*3/uL Baso # (Auto) (0.0-0.2) X10*3/uL Abs Immat Gran (auto) (0.00-0.03) X10*3/uL Absolute Neuts (auto) (2.0-8.3) x10*3/uL Absolute Nucleated RBC (0.0-0.012) X10*3/uL Nucleated RBC % (auto) (0.0-0.2) /100WBC Smear Tech's Comments Sodium (135-145) mmol/L Potassium (3.3-5.1) mmol/L Chloride (96-108) mmol/L Carbon Dioxide (22-29) mmol/L Anion Gap (12-20) BUN (9-16) mg/dL Creatinine (0.5-1.4) mg/dL Estim Creat Clear Calc Estimated GFR Random Glucose (60-115) mg/dL Calcium (8.4-10.2) mg/dL Magnesium (1.6-2.6) mg/dL Total Bilirubin (0.0-1.0) mg/dL Direct Bilirubin (0.0-0.5) mg/dL AST (5-31) U/L ALT (0-31) U/L Alkaline Phosphatase (39-117) U/L Troponin I High Sens 10.3 (<3.5-17.0) ng/L Total Protein (6.5-8.0) g/dL Albumin (3.5-5.0) g/dL TSH (0.32-4.0) uIU/mL Urine Color Urine Appearance Urine pH (5.0-9.0) Ur Specific [place] (1.005-1.025) Urine Protein (Neg-Trace) mg/dL Urine Glucose (UA) (Negative) mg/dL Urine Ketones (Negative) mg/dL Urine Blood (Negative) Urine Nitrite (Negative) Ur Leukocyte Esterase (Negative) Urine RBC (0-2) /HPF Urine WBC (0-5) /HPF Ur Squamous Epith Cells (0-2) /HPF Urine Bacteria (None Seen) Hyaline Casts (0-2) /LPF Salicylates (15-30) mg/dL Urine Opiates Screen (Not Detect) Urine Fentanyl Screen (Not Detect) Acetaminophen (<30) mcg/mL Ur Barbiturates Screen (Not Detect) Ur Phencyclidine Scrn (Not Detect) Ur Amphetamines Screen (Not Detect) U Benzodiazepines Scrn (Not Detect) Urine Cocaine Screen (Not Detect) U Marijuana (THC) Screen (Not Detect) Ethyl Alcohol mg/dL COVID-19 (JANET) (Negative) COVID-19 Clin Com Discharge Plan Discharge Clinical Impression: Depression with suicidal ideation, Anxiety Patient Disposition: Still a Patient Prescriptions: No Action Citrucel 500 mg tablet 1,000 mg PO BID 30 Days Qty: 120 6RF Rx Instructions: Take two tablets by mouth twice a day amlodipine 5 mg tablet 5 mg PO DAILY 90 Days Qty: 90 1RF Rx Instructions: patient is advised that she has an order for labs non fasting and should get this done to evaluate her potassium level and she understands/agrees pravastatin 20 mg tablet 20 mg PO DAILY Qty: 30 6RF paroxetine HCl 10 mg tablet 10 mg PO DAILY 90 Days Qty: 90 1RF paroxetine HCl 40 mg tablet 40 mg PO DAILY 90 Days Qty: 90 3RF trazodone 50 mg tablet 50 mg PO BEDTIME PRN (Reason: sleep) 90 Days Qty: 90 0RF multivitamin Tablet 1 tab PO DAILY calcium carbonate [Calcium 600] 600 mg calcium (1,500 mg) Tablet 1,200 mg PO DAILY Align 4 mg Capsule 4 mg PO DAILY cholecalciferol (vitamin D3) [Vitamin D3] 125 mcg (5,000 unit) Tablet 125 mcg PO DAILY lorazepam [Ativan] 0.5 mg tablet 0.5 mg PO BEDTIME PRN (Reason: anxiety) Qty: 10 0RF alendronate [Fosamax] 70 mg tablet 70 mg PO QWEEK 90 Days Qty: 13 1RF Interventions: Lena-Suicide Risk Severity Scale Last Done: 09/14/22 16:10
[2022-09-14 13:32] LABS: COVID-19 Test Negative (Negative); IDNOW Serial# BCCEAD1C
--- NOTE | 2022-09-14 13:40 | ECG_ITS ---
Test Reason : SYNCOPE Blood Pressure : / mmHG Vent. Rate : 082 BPM Atrial Rate : 082 BPM P-R Int : 160 ms QRS Dur : 088 ms QT Int : 420 ms P-R-T Axes : 026 004 030 degrees QTc Int : 490 ms Sinus rhythm with Premature atrial complexes Nonspecific ST abnormality Abnormal ECG When compared with ECG of 20-JUL-2022 08:55, Premature atrial complexes are now Present Referred By: Kaylynn Martinez Electronically Signed By:KRISTEL ROLAND MD
[2022-09-14 13:57] LABS: Troponin-I High Sensitivity 7.6 ng/L (<3.5-17.0)
[2022-09-14 14:51] LABS: Troponin-I High Sensitivity 10.3 ng/L (<3.5-17.0)
[2022-09-14 16:46] VITALS: BP 125/79; PULSE 72
[2022-09-14 18:51] VITALS: BP 137/88; PULSE 70; RESP 16; TEMP 36.3; O2SAT 96
--- NOTE | 2022-09-14 18:59 | PC.ADMIT ---
Arrived on unit at 1810 in wheelchair from [facility] ED and placed on 15 min safety checks. This is the 1st admission to this unit for this 66 y.o. female. Referred by [facility] Care Team with Dx of Unspecified Depressive D.O. Pt denies current medical issues, hx basal cell carcinoma left side of neck. Denies substance issues, tox screen negative. Nurse to nurse done prior to admission. Pt reports mother, sister and brother have hx etoh use for coping. Pt reports main issue is insomnia. States she has not slept in 2 days and had slept for 1-2 hrs prior to that. States prescribed Paxil made her feel like she was jumping out of her skin, gave her night sweats and double vision. Repetitively stated she needed med to sleep and needed to sleep. Current med orders to assist pt sleep reviewed. States she can not use Trazodone because it caused her to feel fuzzy and did not help with sleep. States Vistaril wires her. Requesting Ativan 2mg as 1 mg not helpful in ED. Admission orders obtained from Jennifer Vuong NP. Jennifer Vuong notified of pt's concerns re: sleep and med requests. Mood lability noted during admission, tearful when speaking about insomnia and thoughts of taking bottle of Paxil prior to admission. Denies active SI/HI. States she will come to staff if feeling unsafe. Pt expresses hopelessness. Reports urinary frequency due to anxiety. Pt reports 10 pound wt loss in past 2 weeks. Denies AH/VH. Denies physical discomfort.
[2022-09-14 20:15] VITALS: BP 148/88; PULSE 78
[2022-09-14] MEDS: traZODone HCL 50 MG TABLET PO (21:34)
[2022-09-14] MEDS: hydrOXYzine HCL 25 MG TABLET PO (21:34)
[2022-09-15 08:00] VITALS: BP 141/67; PULSE 75; RESP 16; TEMP 37; O2SAT 97
[2022-09-15] MEDS: Cholecalciferol (Vitamin D3) 25 MCG TABLET 125 MCG PO (08:24)
[2022-09-15] MEDS: amLODIPine Besylate 5 MG TABLET PO (08:24)
[2022-09-15] MEDS: Pravastatin Sodium 20 MG TABLET PO (08:26)
[2022-09-15] MEDS: Multivitamin TABLET 1 TAB PO (08:26)
[2022-09-15 08:36] LABS: Estimated Average Glucose 111 mg/dL; Hemoglobin A1c % 5.5 %
[2022-09-15 09:10] LABS: Cholesterol 152 mg/dL; Free T4 (Free Thyroxine) 1.06 ng/dL (0.71-1.85); HDL Cholesterol 37 mg/dL; LDL Cholesterol Calculated 95 mg/dl; Magnesium 2.2 mg/dL (1.6-2.6); Thyroid Stimulating Hormone 1.52 uIU/mL (0.32-4.0); Triglycerides 104 mg/dL
[2022-09-15 09:23] LABS: Folate 16.1 ng/mL (> or = 4.0); Vitamin B12 599 pg/mL (200-900)
[2022-09-15] MEDS: hydrOXYzine HCL 25 MG TABLET PO ×2 (10:25→16:39)
--- NOTE | 2022-09-15 13:32 | HO.PSYADMNOT ---
HPI Date of Service: 09/15/22 Chief Complaint: SI, Depression, Anxiety Sources of Information: patient interviewed, chart reviewed and crisis/core team assessment reviewed HPI Subjective Notes: [place] Warning and Conditional Voluntary Guardianship: No Narrative: The patient is a 66-year-old female, , mother of an adult daughter, retired see few of the [facility] [employer], living with her and 2 dogs, with good social support, referred from the emergency room for suicidal ideation. The patient carries a diagnosis of major depressive disorder recurrent episode and panic disorder without agoraphobia. The patient had been on treatment for more than 30 years and she has never been admitted into the hospital nor she has being suicidal. The patient reported that a few months ago her psychiatrist retired and she did not have follow-up, her primary care physician was prescribing her medications. According to the patient, she had been feeling more dysphoric in the last months, she was taking Paxil 40 mg p.o. daily but she relapse of her depressive symptoms elicited by depressed mood, anhedonia, lack of energy, feelings of hopelessness and increased anxiety. Her main complaint was insomnia. Historically, insomnia was the main symptom for depression. She also described panic attacks elicited by short periods of increased anxiety palpitations, sweating and feeling of dying. Her primary care physician increase Paxil up to 50 mg p.o. daily last week but apparently it did not help. The patient stated that she had never been suicidal before but suddenly due to her several symptoms of anxiety and dysphoria she had suicidal ideation and she was rushed by her to the emergency room. She was assessed by crisis and transferring to this facility for psychiatric stabilization. The patient adamantly denies psychotic symptoms such as hallucinations or paranoia, she admits depression with neurovegetative symptoms, she acknowledge suicidal ideation but she is able to contract for safety in the facility. We discussed at length different treatment options and she does not want to continue with Paxil or Prozac that she tried in the past. She agreed to cross taper to a different class of medications such as SNRIs. Past Psychiatric History: She has never been admitted into the hospital, she started receiving outpatient services on hears early 30s after an early menopause. She was on Prozac for more than 25 years and eventually she was cross taper to Paxil with for improvement. She had been taking Paxil for the last 10 years but recently it stopped working, even though that she was sad 40 mg a day. She always received outpatient services by a private psychiatrist. Medical Evaluation Reviewed: Yes [facility] Medical History Depression Diverticulitis Dyslipidemia Essential hypertension History of anxiety Hyperkalemia Osteoarthritis (arthritis due to wear and tear of joints) PAC (premature atrial contraction) Surgical History History of carpal tunnel release History of total right knee replacement Hx of colonoscopy Family History: Her mother used to abuse alcohol and she has 2 siblings with alcohol abuse disorder Social History: . The patient is the oldest of 3 children, her milestones were achieved at expected age and she was raised by her parents. She reported that she was very close to her father but he when she was 17, her mother used to abuse alcohol and she had a difficult relation with her. She was a good student, graduate from high school and then go to college. At age of 19 she got and had her daughter when she was 21, eventually she her 1st and this relation lasted between 6 or 7 years. She remarried and she has been with her for the last 30 years. 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 Substance History: Denies Trauma History: Denies Diagnostics Vital Signs (24Hr): Vital Signs - 24 hr 09/14/22 16:46 09/14/22 18:51 09/14/22 20:15 Temperature 97.3 F Pulse Rate 72 70 78 Respiratory Rate 16 Blood Pressure 125/79 137/88 148/88 H Pulse Oximetry 96 Oxygen Delivery Method Room Air 09/15/22 08:00 Temperature 98.6 F Pulse Rate 75 Respiratory Rate 16 Blood Pressure 141/67 H Pulse Oximetry 97 Oxygen Delivery Method Room Air BMI result Body Mass Index 24.3 Labs Results: 09/14/22 10:18 09/14/22 10:18 Labs: Laboratory Results - last 48 hr 09/14/22 09/14/22 09/14/22 10:18 10:18 10:18 WBC 14.3 H RBC 5.16 Hgb 16.3 H Hct 47.6 H MCV 92.2 MCH 31.6 MCHC 34.2 RDW 11.9 Plt Count 316 MPV 10.0 Immature Gran % (Auto) 0.6 H Neut % (Auto) 64.4 Lymph % (Auto) 26.3 [place] % (Auto) 8.0 Eos % (Auto) 0.3 Baso % (Auto) 0.4 Lymph # (Auto) 3.8 [place] # (Auto) 1.1 Eos # (Auto) 0.0 Baso # (Auto) 0.1 Abs Immat Gran (auto) 0.09 H Absolute Neuts (auto) 9.2 H Absolute Nucleated RBC 0.030 H Nucleated RBC % (auto) 0.2 Smear Tech's Comments VERIFIED Sodium 143 Potassium 4.3 Chloride 104 Carbon Dioxide 27 Anion Gap 16 BUN 18 H Creatinine 0.76 Estim Creat Clear Calc 68.9 Estimated GFR > 60 Random Glucose 96 Estimat Average Glucose Hemoglobin A1c % Calcium 10.3 H Magnesium 2.0 Total Bilirubin 0.7 Direct Bilirubin 0.3 AST 22 ALT 33 H Alkaline Phosphatase 51 Troponin I High Sens 7.6 Total Protein 8.0 Albumin 5.0 Triglycerides Cholesterol LDL Cholesterol, Calc HDL Cholesterol Vitamin B12 Folate TSH 1.97 Free T4 Urine Color Urine Appearance Urine pH Ur Specific [place] Urine Protein Urine Glucose (UA) Urine Ketones Urine Blood Urine Nitrite Ur Leukocyte Esterase Urine RBC Urine WBC Ur Squamous Epith Cells Urine Bacteria Hyaline Casts Salicylates < 5.0 L Urine Opiates Screen Urine Fentanyl Screen Acetaminophen < 1 Ur Barbiturates Screen Ur Phencyclidine Scrn Ur Amphetamines Screen U Benzodiazepines Scrn Urine Cocaine Screen U Marijuana (THC) Screen Ethyl Alcohol < 10 COVID-19 (JANET) COVID-19 Clin Com 09/14/22 09/14/22 09/14/22 11:33 11:33 12:51 WBC RBC Hgb Hct MCV MCH MCHC RDW Plt Count MPV Immature Gran % (Auto) Neut % (Auto) Lymph % (Auto) [place] % (Auto) Eos % (Auto) Baso % (Auto) Lymph # (Auto) [place] # (Auto) Eos # (Auto) Baso # (Auto) Abs Immat Gran (auto) Absolute Neuts (auto) Absolute Nucleated RBC Nucleated RBC % (auto) Smear Tech's Comments Sodium Potassium Chloride Carbon Dioxide Anion Gap BUN Creatinine Estim Creat Clear Calc Estimated GFR Random Glucose Estimat Average Glucose Hemoglobin A1c % Calcium Magnesium Total Bilirubin Direct Bilirubin AST ALT Alkaline Phosphatase Troponin I High Sens Total Protein Albumin Triglycerides Cholesterol LDL Cholesterol, Calc HDL Cholesterol Vitamin B12 Folate TSH Free T4 Urine Color Yellow Urine Appearance Clear Urine pH 7.0 Ur Specific [place] 1.020 Urine Protein Negative Urine Glucose (UA) Negative Urine Ketones 15 Urine Blood Trace H Urine Nitrite Negative Ur Leukocyte Esterase Negative Urine RBC 6-10 H Urine WBC 0-5 Ur Squamous Epith Cells 0-2 Urine Bacteria None Seen Hyaline Casts 0-2 Salicylates Urine Opiates Screen Not Detected Urine Fentanyl Screen Not Detected Acetaminophen Ur Barbiturates Screen Not Detected Ur Phencyclidine Scrn Not Detected Ur Amphetamines Screen Not Detected U Benzodiazepines Scrn Not Detected Urine Cocaine Screen Not Detected U Marijuana (THC) Screen Not Detected Ethyl Alcohol COVID-19 (JANET) Negative COVID-[facility] Clin Com See Note 09/14/22 09/15/22 09/15/22 14:23 08:06 08:06 WBC RBC Hgb Hct MCV MCH MCHC RDW Plt Count MPV Immature Gran % (Auto) Neut % (Auto) Lymph % (Auto) [place] % (Auto) Eos % (Auto) Baso % (Auto) Lymph # (Auto) [place] # (Auto) Eos # (Auto) Baso # (Auto) Abs Immat Gran (auto) Absolute Neuts (auto) Absolute Nucleated RBC Nucleated RBC % (auto) Smear Tech's Comments Sodium Potassium Chloride Carbon Dioxide Anion Gap BUN Creatinine Estim Creat Clear Calc Estimated GFR Random Glucose Estimat Average Glucose 111 Hemoglobin A1c % 5.5 Calcium Magnesium 2.2 Total Bilirubin Direct Bilirubin AST ALT Alkaline Phosphatase Troponin I High Sens 10.3 Total Protein Albumin Triglycerides 104 Cholesterol 152 LDL Cholesterol, Calc 95 HDL Cholesterol 37 Vitamin B12 Folate TSH 1.52 Free T4 1.06 Urine Color Urine Appearance Urine pH Ur Specific [place] Urine Protein Urine Glucose (UA) Urine Ketones Urine Blood Urine Nitrite Ur Leukocyte Esterase Urine RBC Urine WBC Ur Squamous Epith Cells Urine Bacteria Hyaline Casts Salicylates Urine Opiates Screen Urine Fentanyl Screen Acetaminophen Ur Barbiturates Screen Ur Phencyclidine Scrn Ur Amphetamines Screen U Benzodiazepines Scrn Urine Cocaine Screen U Marijuana (THC) Screen Ethyl Alcohol COVID-19 (JANET) COVID-19 Clin Com 09/15/22 08:06 WBC RBC Hgb Hct MCV MCH MCHC RDW Plt Count MPV Immature Gran % (Auto) Neut % (Auto) Lymph % (Auto) [place] % (Auto) Eos % (Auto) Baso % (Auto) Lymph # (Auto) [place] # (Auto) Eos # (Auto) Baso # (Auto) Abs Immat Gran (auto) Absolute Neuts (auto) Absolute Nucleated RBC Nucleated RBC % (auto) Smear Tech's Comments Sodium Potassium Chloride Carbon Dioxide Anion Gap BUN Creatinine Estim Creat Clear Calc Estimated GFR Random Glucose Estimat Average Glucose Hemoglobin A1c % Calcium Magnesium Total Bilirubin Direct Bilirubin AST ALT Alkaline Phosphatase Troponin I High Sens Total Protein Albumin Triglycerides Cholesterol LDL Cholesterol, Calc HDL Cholesterol Vitamin B12 599 Folate 16.1 TSH Free T4 Urine Color Urine Appearance Urine pH Ur Specific [place] Urine Protein Urine Glucose (UA) Urine Ketones Urine Blood Urine Nitrite Ur Leukocyte Esterase Urine RBC Urine WBC Ur Squamous Epith Cells Urine Bacteria Hyaline Casts Salicylates Urine Opiates Screen Urine Fentanyl Screen Acetaminophen Ur Barbiturates Screen Ur Phencyclidine Scrn Ur Amphetamines Screen U Benzodiazepines Scrn Urine Cocaine Screen U Marijuana (THC) Screen Ethyl Alcohol COVID-19 (JANET) COVID-19 Clin Com Imaging Radiology Impressions: ITS Impressions Head CT 09/14/22 12:35 IMPRESSION: - No acute intracranial abnormality. 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 Chest X-Ray 09/14/22 14:32 IMPRESSION: No acute cardiopulmonary process. Meds/Allergies Meds Home Medications Medication Instructions Recorded Confirmed Type Bifidobacterium infantis 4 mg 4 mg PO DAILY 10/24/20 09/14/22 History capsule (Align) calcium carbonate 600 mg calcium 1,200 mg PO DAILY 10/24/20 09/14/22 History (1,500 mg) tablet (Calcium) cholecalciferol (vitamin D3) 125 125 mcg PO DAILY 10/24/20 09/14/22 History mcg (5,000 unit) tablet (Vitamin D3) multivitamin 1 tab PO DAILY 10/24/20 09/14/22 History amlodipine 5 mg tablet (Norvasc) 5 mg PO DAILY 09/14/22 09/14/22 History Allergies Allergies Allergy/AdvReac Type Severity Reaction Status Date / Time No Known Allergies Allergy Verified 09/07/22 14:18 [No Known Allergies*] Mental Status Exam Mental Status Exam Patient Appearance: Well Grooomed and Appropriate (On hospital gowns) Patient Orientation: Person, Place, Time and Situation Level of Consciousness: Awake and Appropriate Mood Description: Anxious, Nervous and Apprehensive Affect Description: Constricted Patient Cognition Impaired: No Ability to Follow Directions: Good Speech Pattern: Clear Hallucinations: None Delusions: Not Present Thought Process: Distracted and Linear Thought Content: positive for Circumstantial and positive for Preoccupation Depressive Symptoms: Increased Anxiety and Increased Irritability Judgement: Fair Assessment & Plan Assessment & Plan (1) Major depressive disorder: Status: Acute Code(s): F32.9 - Major depressive disorder, single episode, unspecified (2) Panic disorder: Status: Acute Code(s): F41.0 - Panic disorder [episodic paroxysmal anxiety] Plan The patient is an middle-aged female with a long history of major depressive disorder panic disorder, fairly well control with SSRIs for more than 45 years, admitted for exacerbation of symptoms with lack of response with Paxil 50 mg p.o. daily. She acknowledged suicidal ideation and she was admitted into this facility for psychiatric stabilization. Plan 1. Paxil 20 mg p.o. daily today, we will start slow tapering of Paxil. 2. Medical workout, we will do a TSH and other blood work. 3. Klonopin 0.5 mg p.o. t.i.d. p.r.n. anxiety. 4. Seroquel 50 mg p.o. q.h.s. at night to target insomnia. Also Seroquel 50 mg p.o. b.i.d. p.r.n. agitation. 5. Gather collateral information Patient educated on: diagnosis, medication risk/benefits, therapeutic strategies and medical condition Reason for continued inpatient stay Substantial Risk for: inability to function, rapid decompensation and med/psych decompensation
[2022-09-15] MEDS: PARoxetine HCL 20 MG TABLET PO (13:35)
[2022-09-15 18:00] VITALS: BP 142/69; PULSE 75; RESP 16; TEMP 36.4; O2SAT 91
[2022-09-15] MEDS: clonazePAM 0.5 MG TABLET PO (18:40)
[2022-09-15] MEDS: QUEtiapine Fumarate 50 MG TABLET PO ×2 (18:40→20:16)
[2022-09-15] MEDS: traZODone HCL 50 MG TABLET PO (22:55)
[2022-09-16 07:30] VITALS: BP 128/75; PULSE 70; RESP 17; TEMP 36.3; O2SAT 96
[2022-09-16] MEDS: PARoxetine HCL 20 MG TABLET PO (10:15)
[2022-09-16] MEDS: Cholecalciferol (Vitamin D3) 25 MCG TABLET 125 MCG PO (10:16)
[2022-09-16] MEDS: Multivitamin TABLET 1 TAB PO (10:16)
[2022-09-16] MEDS: Pravastatin Sodium 20 MG TABLET PO (10:16)
[2022-09-16] MEDS: amLODIPine Besylate 5 MG TABLET PO (10:16)
[2022-09-16] MEDS: hydrOXYzine HCL 25 MG TABLET PO (13:34)
--- NOTE | 2022-09-16 15:58 | HO.PSYCHPN ---
Subjective Subjective Date of Service: 09/16/22 Reason For Visit: SI, Depression, Anxiety Subjective Notes: Conditional Voluntary Interim History: The nursing staff reported the patient had been tearful at times. She slept well last night and she denies over-sedation with Seroquel. 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 Her daughter is coming today. On interview I explained the medication changes and the patient was in agreement of that she will keep on Paxil 20 mg for today and tomorrow and on Wednesday we will order to 10 and we will start a slow cross titration to Cymbalta. Still dysphoric and anxious, she reported the Klonopin help her on her anxiety. Mental Status Exam Mental Status Exam Patient Appearance: Well Grooomed Patient Orientation: Person and Situation Level of Consciousness: Awake and Appropriate Patient Behavior: Cooperative Mood Description: Calm Affect Description: Constricted Patient Cognition Impaired: No Ability to Follow Directions: Good Speech Pattern: Clear Hallucinations: None Delusions: Not Present Thought Process: Linear Thought Content: positive for Circumstantial Judgement: Fair Diagnostics Vital Signs (24Hr): Vital Signs - 24 hr 09/15/22 18:00 Temperature 97.5 F Pulse Rate 75 Respiratory Rate 16 Blood Pressure 142/69 H Pulse Oximetry 91 L Oxygen Delivery Method Room Air BMI result Body Mass Index 24.3 Labs Results: 09/14/22 10:18 09/14/22 10:18 Labs: Laboratory Results - last 48 hr 09/15/22 09/15/22 09/15/22 08:06 08:06 08:06 Estimat Average Glucose 111 Hemoglobin A1c % 5.5 Magnesium 2.2 Triglycerides 104 Cholesterol 152 LDL Cholesterol, Calc 95 HDL Cholesterol 37 Vitamin B12 599 Folate 16.1 TSH 1.52 Free T4 1.06 Imaging Radiology Impressions: ITS Impressions Head CT 09/14/22 12:35 IMPRESSION: - No acute intracranial abnormality. 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 Chest X-Ray 09/14/22 14:32 IMPRESSION: No acute cardiopulmonary process. Medications Medications Current Medications Acetaminophen (Acetaminophen 325 Mg Tablet) 650 mg PO Q6H PRN PRN Reason: Headache/Pain Mild Scale (1-3) Al Hydroxide/Mg Hydroxide (Magnesium Hydrox/Alum Hydrox 30 Ml Oral.Susp) 30 ml PO Q6H PRN PRN Reason: Heartburn/Nausea Amlodipine Besylate (Amlodipine Besylate 5 Mg Tablet) 5 mg PO DAILY [facility]; Protocol Last Admin: 09/16/22 10:16 Dose: 5 mg Calcium Carbonate (Calcium Carbonate 500 Mg Tablet) 1,000 mg PO DAILY [facility] Last Admin: 09/16/22 10:16 Dose: 1,000 mg Clonazepam (Clonazepam 0.5 Mg Tablet) 0.5 mg PO TID PRN PRN Reason: Anxiety Last Admin: 09/15/22 18:40 Dose: 0.5 mg Hydroxyzine HCl (Hydroxyzine Hcl 25 Mg Tablet) 25 mg PO Q6H PRN PRN Reason: Anxiety Last Admin: 09/16/22 13:34 Dose: 25 mg Magnesium Hydroxide (Milk Of Magnesia 30 Ml Oral.Susp) 30 ml PO DAILY PRN PRN Reason: Constipation Multivitamins/Vitamin C (Multivitamin Tablet) 1 tab PO DAILY [facility] Last Admin: 09/16/22 10:16 Dose: 1 tab Paroxetine HCl (Paroxetine Hcl 20 Mg Tablet) 20 mg PO DAILY [facility] Last Admin: 09/16/22 10:15 Dose: 20 mg Pravastatin Sodium (Pravastatin Sodium 20 Mg Tablet) 20 mg PO DAILY [facility] Last Admin: 09/16/22 10:16 Dose: 20 mg Quetiapine Fumarate (Quetiapine Fumarate 50 Mg Tablet) 50 mg PO BEDTIME [facility] Last Admin: 09/15/22 20:16 Dose: 50 mg Quetiapine Fumarate (Quetiapine Fumarate 50 Mg Tablet) 50 mg PO BID PRN PRN Reason: Agitation Last Admin: 09/15/22 18:40 Dose: 50 mg Trazodone HCl (Trazodone Hcl 50 Mg Tablet) 50 mg PO BEDTIME PRN PRN Reason: Insomnia Last Admin: 09/15/22 22:55 Dose: 50 mg Vitamin D (Cholecalciferol (Vitamin D3) 25 Mcg Tablet) 125 mcg PO DAILY [facility] Last Admin: 09/16/22 10:16 Dose: 125 mcg Allergies Allergies Allergy/AdvReac Type Severity Reaction Status Date / Time No Known Allergies Allergy Verified 09/07/22 14:18 [No Known Allergies*] Assessment & Plan Assessment & Plan (1) Major depressive disorder: Status: Acute Code(s): F32.9 - Major depressive disorder, single episode, unspecified (2) Panic disorder: Status: Acute Code(s): F41.0 - Panic disorder [episodic paroxysmal anxiety] Plan The patient is an middle-aged female with a long history of major depressive disorder panic disorder, fairly well control with SSRIs for more than 45 years, admitted for exacerbation of symptoms with lack of response with Paxil 50 mg p.o. daily. She acknowledged suicidal ideation and she was admitted into this facility for psychiatric stabilization. Plan 1. Paxil 20 mg p.o. daily today, we will start slow tapering of Paxil. 2. Medical workout, we will do a TSH and other blood work. 3. Klonopin 0.5 mg p.o. t.i.d. p.r.n. anxiety. 4. Seroquel 50 mg p.o. q.h.s. at night to target insomnia. Also Seroquel 50 mg p.o. b.i.d. p.r.n. agitation. 5. Gather collateral information I spent __20____ minutes with the patient and/or on the patient floor today, greater than?50% of which was spent counseling/coordinating care. Reason for contiued inpatient stay Substantial Risk for: inability to function, rapid decompensation and med/psych decompensation
[2022-09-16 18:00] VITALS: BP 143/75; PULSE 74; RESP 18; TEMP 36.2; O2SAT 96
[2022-09-16] MEDS: QUEtiapine Fumarate 50 MG TABLET PO (20:03)
[2022-09-16] MEDS: clonazePAM 0.5 MG TABLET PO (20:09)
[2022-09-17 06:00] VITALS: BP 118/70; PULSE 93; RESP 15; TEMP 36.4; O2SAT 95
[2022-09-17] MEDS: amLODIPine Besylate 5 MG TABLET PO (09:59)
[2022-09-17] MEDS: Cholecalciferol (Vitamin D3) 25 MCG TABLET 125 MCG PO (09:59)
[2022-09-17] MEDS: Pravastatin Sodium 20 MG TABLET PO (10:00)
[2022-09-17] MEDS: Multivitamin TABLET 1 TAB PO (10:00)
[2022-09-17] MEDS: PARoxetine HCL 20 MG TABLET PO (10:00)
[2022-09-17] MEDS: hydrOXYzine HCL 25 MG TABLET PO (12:35)
--- NOTE | 2022-09-17 12:42 | P.PNPSI_ITS ---
Subjective Subjective Date of Service: 09/17/22 Reason For Visit: SI, Depression, Anxiety Subjective Notes: Conditional Voluntary Interim History: The nursing staff reported the patient has not been crying and more, she feels slightly better but still anxious rated 6/10. She has attended the groups she is visible in the area. She admitted that [place] has helped her. Her daughter came to visit her yesterday. The occupational therapist reported that she scored 24/30 in the [place] and the [place] test 5.02 On interview the patient reports that she still anxious and she is ready to do that cross taper to Cymbalta. Mental Status Exam Mental Status Exam Patient Appearance: Well Grooomed and Appropriate Patient Orientation: Person and Situation Level of Consciousness: Awake Patient Behavior: Cooperative and Passive Mood Description: Depressed Affect Description: Constricted Patient Cognition Impaired: No Ability to Follow Directions: Good Speech Pattern: Clear Hallucinations: None Delusions: Not Present Thought Process: Distracted and Linear Thought Content: positive for Circumstantial Judgement: Fair Diagnostics Vital Signs (24Hr): Vital Signs - 24 hr 09/16/22 18:00 09/17/22 06:00 Temperature 97.2 F 97.5 F Pulse Rate 74 93 Respiratory Rate 18 15 Blood Pressure 143/75 H 118/70 Pulse Oximetry 96 95 Oxygen Delivery Method Room Air Room Air BMI result Body Mass Index 24.3 Labs Results: 09/14/22 10:18 09/14/22 10:18 Imaging Radiology Impressions: ITS Impressions Head CT 09/14/22 12:35 IMPRESSION: - No acute intracranial abnormality. 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 Chest X-Ray 09/14/22 14:32 IMPRESSION: No acute cardiopulmonary process. Medications Medications Current Medications Acetaminophen (Acetaminophen 325 Mg Tablet) 650 mg PO Q6H PRN PRN Reason: Headache/Pain Mild Scale (1-3) Al Hydroxide/Mg Hydroxide (Magnesium Hydrox/Alum Hydrox 30 Ml Oral.Susp) 30 ml PO Q6H PRN PRN Reason: Heartburn/Nausea Amlodipine Besylate (Amlodipine Besylate 5 Mg Tablet) 5 mg PO DAILY [facility]; Protoc ol Last Admin: 09/17/22 09:59 Dose: 5 mg Calcium Carbonate (Calcium Carbonate 500 Mg Tablet) 1,000 mg PO DAILY [facility] Last Admin: 09/17/22 10:00 Dose: 1,000 mg Clonazepam (Clonazepam 0.5 Mg Tablet) 0.5 mg PO TID PRN PRN Reason: Anxiety Last Admin: 09/16/22 20:09 Dose: 0.5 mg Duloxetine HCl (Duloxetine Hcl 30 Mg Capsule.Dr) 30 mg PO BEDTIME [facility] Hydroxyzine HCl (Hydroxyzine Hcl 25 Mg Tablet) 25 mg PO Q6H PRN PRN Reason: Anxiety Last Admin: 09/17/22 12:35 Dose: 25 mg Magnesium Hydroxide (Milk Of Magnesia 30 Ml Oral.Susp) 30 ml PO DAILY PRN PRN Reason: Constipation Multivitamins/Vitamin C (Multivitamin Tablet) 1 tab PO DAILY [facility] Last Admin: 09/17/22 10:00 Dose: 1 tab Paroxetine HCl (Paroxetine Hcl 20 Mg Tablet) 20 mg PO DAILY [facility] Stop: 09/17/22 23:59 Last Admin: 09/17/22 10:00 Dose: 20 mg Paroxetine HCl (Paroxetine Hcl 10 Mg Tablet) 10 mg PO DAILY [facility] Stop: 09/20/22 11:00 Pravastatin Sodium (Pravastatin Sodium 20 Mg Tablet) 20 mg PO DAILY [facility] Last Admin: 09/17/22 10:00 Dose: 20 mg Quetiapine Fumarate (Quetiapine Fumarate 50 Mg Tablet) 50 mg PO BEDTIME [facility] Last Admin: 09/16/22 20:03 Dose: 50 mg Quetiapine Fumarate (Quetiapine Fumarate 50 Mg Tablet) 50 mg PO BID PRN PRN Reason: Agitation Last Admin: 09/15/22 18:40 Dose: 50 mg Trazodone HCl (Trazodone Hcl 50 Mg Tablet) 50 mg PO BEDTIME PRN PRN Reason: Insomnia Last Admin: 09/15/22 22:55 Dose: 50 mg Vitamin D (Cholecalciferol (Vitamin D3) 25 Mcg Tablet) 125 mcg PO DAILY [facility] Last Admin: 09/17/22 09:59 Dose: 125 mcg Allergies Allergies Allergy/AdvReac Type Severity Reaction Status Date / Time No Known Allergies Allergy Verified 09/07/22 14:18 [No Known Allergies*] Assessment & Plan Assessment & Plan (1) Major depressive disorder: Status: Acute Code(s): F32.9 - Major depressive disorder, single episode, unspecified (2) Panic disorder: Status: Acute Code(s): F41.0 - Panic disorder [episodic paroxysmal anxiety] Plan The patient is an middle-aged female with a long history of major depressive disorder panic disorder, fairly well control with SSRIs for more than 45 years, admitted for exacerbation of symptoms with lack of response with Paxil 50 mg p.o. daily. She acknowledged suicidal ideation and she was admitted into this facility for psychiatric stabilization. Plan 1. Paxil 20 mg p.o. daily today, we will start slow tapering of Paxil. On September 18 we will give Paxil 10 mg until Wednesday and start Cymbalta 30 mg p.o. q.h.s. on Wednesday. 2. Medical workout, we will do a TSH and other blood work. 3. Klonopin 0.5 mg p.o. t.i.d. p.r.n. anxiety. 4. Seroquel 50 mg p.o. q.h.s. at night to target insomnia. Also Seroquel 50 mg p.o. b.i.d. p.r.n. agitation. 5. Gather collateral information I spent ___20___ minutes with the patient and/or on the patient floor today, greater than?50% of which was spent counseling/coordinating care. Reason for contiued inpatient stay Substantial Risk for: inability to function, rapid decompensation and med/psych decompensation
[2022-09-17 14:41] VITALS: BMI 25.5
[2022-09-17 18:00] VITALS: BP 143/87; PULSE 78; RESP 14; TEMP 36.6; O2SAT 96
[2022-09-17] MEDS: traZODone HCL 50 MG TABLET PO (20:31)
[2022-09-17] MEDS: clonazePAM 0.5 MG TABLET PO (20:31)
[2022-09-17] MEDS: QUEtiapine Fumarate 50 MG TABLET PO (20:31)
[2022-09-18 07:30] VITALS: BP 129/65; PULSE 64; RESP 15; TEMP 36.7; O2SAT 95
[2022-09-18] MEDS: Cholecalciferol (Vitamin D3) 25 MCG TABLET 125 MCG PO (10:11)
[2022-09-18] MEDS: Pravastatin Sodium 20 MG TABLET PO (10:11)
[2022-09-18] MEDS: amLODIPine Besylate 5 MG TABLET PO (10:12)
[2022-09-18] MEDS: Multivitamin TABLET 1 TAB PO (10:12)
[2022-09-18] MEDS: PARoxetine HCL 10 MG TABLET PO (10:12)
--- NOTE | 2022-09-18 13:19 | HO.PSYCHPN ---
Subjective Subjective Date of Service: 09/18/22 Reason For Visit: SI, Depression, Anxiety Subjective Notes: Conditional Voluntary Interim History: The nursing staff reported the patient complain of anxiety rated 4/10. She was seen socializing with select peers. The social service director reported that she she contact her and family meeting will be scheduled for next Wednesday with a possible discharge in the middle of the week. On interview the patient denies side effects with the change of medications we are cross tapering Paxil to Cymbalta. We are going to start the 1st dose of Cymbalta tonight. So far, no side effects no evidence of serotonergic syndrome. Mental Status Exam Mental Status Exam Patient Appearance: Well Grooomed Patient Orientation: Person and Situation Level of Consciousness: Awake Patient Behavior: Guarded and Passive Mood Description: Calm Affect Description: Constricted Patient Cognition Impaired: Yes Ability to Follow Directions: Good Speech Pattern: Clear Hallucinations: None Delusions: Not Present Thought Process: Goal Oriented and Linear Thought Content: positive for Circumstantial Judgement: Fair Diagnostics Vital Signs (24Hr): Vital Signs - 24 hr 09/17/22 18:00 Temperature 97.9 F Pulse Rate 78 Respiratory Rate 14 Blood Pressure 143/87 H Pulse Oximetry 96 Oxygen Delivery Method Room Air BMI result Body Mass Index 25.5 Labs Results: 09/14/22 10:18 09/14/22 10:18 Imaging Radiology Impressions: [facility] Impressions Head CT 09/14/22 12:35 IMPRESSION: - No acute intracranial abnormality. 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 Chest X-Ray 09/14/22 14:32 IMPRESSION: No acute cardiopulmonary process. Medications Medications Current Medications Acetaminophen (Acetaminophen 325 Mg Tablet) 650 mg PO Q6H PRN PRN Reason: Headache/Pain Mild Scale (1-3) Al Hydroxide/Mg Hydroxide (Magnesium Hydrox/Alum Hydrox 30 Ml Oral.Susp) 30 ml PO Q6H PRN PRN Reason: Heartburn/Nausea Amlodipine Besylate (Amlodipine Besylate 5 Mg Tablet) 5 mg PO DAILY [facility]; Protocol Last Admin: 09/18/22 10:12 Dose: 5 mg Calcium Carbonate (Calcium Carbonate 500 Mg Tablet) 1,000 mg PO DAILY [facility] Last Admin: 09/18/22 10:11 Dose: 1,000 mg Clonazepam (Clonazepam 0.5 Mg Tablet) 0.5 mg PO TID PRN PRN Reason: Anxiety Last Admin: 09/17/22 20:31 Dose: 0.5 mg Duloxetine HCl (Duloxetine Hcl 30 Mg Capsule.Dr) 30 mg PO BEDTIME [facility] Hydroxyzine HCl (Hydroxyzine Hcl 25 Mg Tablet) 25 mg PO Q6H PRN PRN Reason: Anxiety Last Admin: 09/17/22 12:35 Dose: 25 mg Magnesium Hydroxide (Milk Of Magnesia 30 Ml Oral.Susp) 30 ml PO DAILY PRN PRN Reason: Constipation Multivitamins/Vitamin C (Multivitamin Tablet) 1 tab PO DAILY [facility] Last Admin: 09/18/22 10:12 Dose: 1 tab Paroxetine HCl (Paroxetine Hcl 10 Mg Tablet) 10 mg PO DAILY [facility] Stop: 09/20/22 11:00 Last Admin: 09/18/22 10:12 Dose: 10 mg Pravastatin Sodium (Pravastatin Sodium 20 Mg Tablet) 20 mg PO DAILY [facility] Last Admin: 09/18/22 10:11 Dose: 20 mg Quetiapine Fumarate (Quetiapine Fumarate 50 Mg Tablet) 50 mg PO BEDTIME [facility] Last Admin: 09/17/22 20:31 Dose: 50 mg Quetiapine Fumarate (Quetiapine Fumarate 50 Mg Tablet) 50 mg PO BID PRN PRN Reason: Agitation Last Admin: 09/15/22 18:40 Dose: 50 mg Trazodone HCl (Trazodone Hcl 50 Mg Tablet) 50 mg PO BEDTIME PRN PRN Reason: Insomnia Last Admin: 09/17/22 20:31 Dose: 50 mg Vitamin D (Cholecalciferol (Vitamin D3) 25 Mcg Tablet) 125 mcg PO DAILY [facility] Last Admin: 09/18/22 10:11 Dose: 125 mcg Allergies Allergies Allergy/AdvReac Type Severity Reaction Status Date / Time No Known Allergies Allergy Verified 09/07/22 14:18 [No Known Allergies*] Assessment & Plan Assessment & Plan (1) Major depressive disorder: Status: Acute Code(s): F32.9 - Major depressive disorder, single episode, unspecified (2) Panic disorder: Status: Acute Code(s): F41.0 - Panic disorder [episodic paroxysmal anxiety] Plan The patient is an middle-aged female with a long history of major depressive disorder panic disorder, fairly well control with SSRIs for more than 45 years, admitted for exacerbation of symptoms with lack of response with Paxil 50 mg p.o. daily. She acknowledged suicidal ideation and she was admitted into this facility for psychiatric stabilization. Plan 1. Paxil 20 mg p.o. daily today, we will start slow tapering of Paxil. On September 18 we will give Paxil 10 mg until Wednesday and start Cymbalta 30 mg p.o. q.h.s. on Wednesday. 2. Medical workout, we will do a TSH and other blood work. 3. Klonopin 0.5 mg p.o. t.i.d. p.r.n. anxiety. 4. Seroquel 50 mg p.o. q.h.s. at night to target insomnia. Also Seroquel 50 mg p.o. b.i.d. p.r.n. agitation. 5. Gather collateral information I spent __20____ minutes with the patient and/or on the patient floor today, greater than?50% of which was spent counseling/coordinating care. Reason for contiued inpatient stay Substantial Risk for: inability to function, rapid decompensation and med/psych decompensation
[2022-09-18 18:00] VITALS: BP 140/83; PULSE 73; RESP 16; TEMP 36.2; O2SAT 96
[2022-09-18] MEDS: DULoxetine HCl 30 MG CAPSULE.DR PO (20:08)
[2022-09-18] MEDS: QUEtiapine Fumarate 50 MG TABLET PO (20:08)
[2022-09-18] MEDS: traZODone HCL 50 MG TABLET PO (20:12)
--- NOTE | 2022-09-19 01:50 | HO.PSYCHPN ---
Subjective Subjective Date of Service: 09/19/22 Reason For Visit: SI, Depression, Anxiety Interim History: Spoke with pt, met with team. Pt says im feeling okay, a little bit of anxiety. Says she is preferring cymbalta to paxil. Discusses her hx of anxiety and says when i have anxiety i think i get depressed. She is grateful to be here. Denies SE on cymbalta. Sleep has been fine. Says seroquel and trazodone are helping. Mental Status Exam Mental Status Exam Narrative: Patient Appearance: Well Grooomed Patient Orientation: Person and Situation Level of Consciousness: Awake Patient Behavior: Guarded and Passive Mood Description: Calm Affect Description: Constricted Patient Cognition Impaired: Yes Ability to Follow Directions: Good Speech Pattern: Clear Hallucinations: None Delusions: Not Present Thought Process: Goal Oriented and Linear Thought Content: positive for Circumstantial Judgement: Fair Diagnostics Vital Signs (24Hr): Vital Signs - 24 hr 09/18/22 07:30 09/18/22 18:00 Temperature 98.1 F 97.2 F Pulse Rate 64 73 Respiratory Rate 15 16 Blood Pressure 129/65 140/83 H Pulse Oximetry 95 96 Oxygen Delivery Method Room Air Room Air BMI result Body Mass Index 25.5 Labs Results: 09/14/22 10:18 09/14/22 10:18 Imaging Radiology Impressions: [facility] Impressions Head CT 09/14/22 12:35 IMPRESSION: - No acute intracranial abnormality. 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 Chest X-Ray 09/14/22 14:32 IMPRESSION: No acute cardiopulmonary process. Medications Medications Current Medications Acetaminophen (Acetaminophen 325 Mg Tablet) 650 mg PO Q6H PRN PRN Reason: Headache/Pain Mild Scale (1-3) Al Hydroxide/Mg Hydroxide (Magnesium Hydrox/Alum Hydrox 30 Ml Oral.Susp) 30 ml PO Q6H PRN PRN Reason: Heartburn/Nausea Amlodipine Besylate (Amlodipine Besylate 5 Mg Tablet) 5 mg PO DAILY [facility]; Protocol Last Admin: 09/18/22 10:12 Dose: 5 mg Calcium Carbonate (Calcium Carbonate 500 Mg Tablet) 1,000 mg PO DAILY [facility] Last Admin: 09/18/22 10:11 Dose: 1,000 mg Clonazepam (Clonazepam 0.5 Mg Tablet) 0.5 mg PO TID PRN PRN Reason: Anxiety Last Admin: 09/17/22 20:31 Dose: 0.5 mg Duloxetine HCl (Duloxetine Hcl 30 Mg Capsule.Dr) 30 mg PO BEDTIME [facility] Last Admin: 09/18/22 20:08 Dose: 30 mg Hydroxyzine HCl (Hydroxyzine Hcl 25 Mg Tablet) 25 mg PO Q6H PRN PRN Reason: Anxiety Last Admin: 09/17/22 12:35 Dose: 25 mg Magnesium Hydroxide (Milk Of Magnesia 30 Ml Oral.Susp) 30 ml PO DAILY PRN PRN Reason: Constipation Multivitamins/Vitamin C (Multivitamin Tablet) 1 tab PO DAILY [facility] Last Admin: 09/18/22 10:12 Dose: 1 tab Paroxetine HCl (Paroxetine Hcl 10 Mg Tablet) 10 mg PO DAILY [facility] Stop: 09/20/22 11:00 Last Admin: 09/18/22 10:12 Dose: 10 mg Pravastatin Sodium (Pravastatin Sodium 20 Mg Tablet) 20 mg PO DAILY [facility] Last Admin: 09/18/22 10:11 Dose: 20 mg Quetiapine Fumarate (Quetiapine Fumarate 50 Mg Tablet) 50 mg PO BEDTIME [facility] Last Admin: 09/18/22 20:08 Dose: 50 mg Quetiapine Fumarate (Quetiapine Fumarate 50 Mg Tablet) 50 mg PO BID PRN PRN Reason: Agitation Last Admin: 09/15/22 18:40 Dose: 50 mg Trazodone HCl (Trazodone Hcl 50 Mg Tablet) 50 mg PO BEDTIME PRN PRN Reason: Insomnia Last Admin: 09/18/22 20:12 Dose: 50 mg Vitamin D (Cholecalciferol (Vitamin D3) 25 Mcg Tablet) 125 mcg PO DAILY [facility] Last Admin: 09/18/22 10:11 Dose: 125 mcg Allergies Allergies Allergy/AdvReac Type Severity Reaction Status Date / Time No Known Allergies Allergy Verified 09/07/22 14:18 [No Known Allergies*] Assessment & Plan Assessment & Plan (1) Major depressive disorder: Status: Acute Code(s): F32.9 - Major depressive disorder, single episode, unspecified (2) Panic disorder: Status: Acute Code(s): F41.0 - Panic disorder [episodic paroxysmal anxiety] Plan The patient is an middle-aged female with a long history of major depressive disorder panic disorder, fairly well control with SSRIs for more than 45 years, admitted for exacerbation of symptoms with lack of response with Paxil 50 mg p.o. daily. She acknowledged suicidal ideation and she was admitted into this facility for psychiatric stabilization. Plan 1. Paxil 20 mg p.o. daily today, we will start slow tapering of Paxil. On September 18 we will give Paxil 10 mg until Wednesday and start Cymbalta 30 mg p.o. q.h.s. on Wednesday. 2. Medical workout, we will do a TSH and other blood work. 3. Klonopin 0.5 mg p.o. t.i.d. p.r.n. anxiety. 4. Seroquel 50 mg p.o. q.h.s. at night to target insomnia. Also Seroquel 50 mg p.o. b.i.d. p.r.n. agitation. 5. Gather collateral information 09/19: no changes to tx plan I spent minutes with the patient and/or on the patient floor today, greater than?50% of which was spent counseling/coordinating care. Patient educated on: medication risk/benefits Reason for contiued inpatient stay Substantial Risk for: rapid decompensation and med/psych decompensation
[2022-09-19 06:00] VITALS: BP 143/77; PULSE 68; RESP 17; TEMP 35.8; O2SAT 92
[2022-09-19] MEDS: Multivitamin TABLET 1 TAB PO (08:44)
[2022-09-19] MEDS: Cholecalciferol (Vitamin D3) 25 MCG TABLET 125 MCG PO (08:44)
[2022-09-19] MEDS: Pravastatin Sodium 20 MG TABLET PO (08:45)
[2022-09-19] MEDS: PARoxetine HCL 10 MG TABLET PO (08:45)
[2022-09-19] MEDS: amLODIPine Besylate 5 MG TABLET PO (08:45)
[2022-09-19 18:00] VITALS: BP 120/73; PULSE 75; RESP 18; TEMP 36.3; O2SAT 96
[2022-09-19] MEDS: QUEtiapine Fumarate 50 MG TABLET PO (20:44)
[2022-09-19] MEDS: traZODone HCL 50 MG TABLET PO (20:44)
[2022-09-19] MEDS: DULoxetine HCl 30 MG CAPSULE.DR PO (20:44)
[2022-09-19] MEDS: clonazePAM 0.5 MG TABLET PO (21:59)
[2022-09-19] MEDS: hydrOXYzine HCL 25 MG TABLET PO (21:59)
[2022-09-20 06:00] VITALS: BP 128/74; PULSE 69; RESP 17; TEMP 36.8; O2SAT 96
[2022-09-20] MEDS: Cholecalciferol (Vitamin D3) 25 MCG TABLET 125 MCG PO (08:31)
[2022-09-20] MEDS: PARoxetine HCL 10 MG TABLET PO (08:32)
[2022-09-20] MEDS: amLODIPine Besylate 5 MG TABLET PO (08:32)
[2022-09-20] MEDS: Pravastatin Sodium 20 MG TABLET PO (08:33)
[2022-09-20] MEDS: Multivitamin TABLET 1 TAB PO (08:34)
--- NOTE | 2022-09-20 16:01 | P.PNPSI_ITS ---
Subjective Subjective Date of Service: 09/20/22 Reason For Visit: SI, Depression, Anxiety Interim History: Spoke with team and pt. She is a little more anxious today, had trouble sleeping last night, had troubling conversation with a peer in milieu, able to fall asleep with PRNs, says it seems like my anxiety peaks at night and that her anxiety triggers the insomnia. Feels PRNs are helpful. Still says her anxiety level is a 2/10, goes up to 3-4/10 at night but a good night sleep helps. Mental Status Exam Mental Status Exam Narrative: Patient Appearance: Well Grooomed Patient Orientation: Person and Situation Level of Consciousness: Awake Patient Behavior: Guarded and Passive Mood Description: Calm Affect Description: Constricted Patient Cognition Impaired: Yes Ability to Follow Directions: Good Speech Pattern: Clear Hallucinations: None Delusions: Not Present Thought Process: Goal Oriented and Linear Thought Content: positive for Circumstantial Judgement: Fair Diagnostics Vital Signs (24Hr): Vital Signs - 24 hr 09/19/22 18:00 09/20/22 06:00 Temperature 97.3 F 98.2 F Pulse Rate 75 69 Respiratory Rate 18 17 Blood Pressure 120/73 128/74 Pulse Oximetry 96 96 Oxygen Delivery Method Room Air Room Air BMI result Body Mass Index 25.5 Labs Results: 09/14/22 10:18 09/14/22 10:18 Imaging Radiology Impressions: [facility] Impressions Head CT 09/14/22 12:35 IMPRESSION: - No acute intracranial abnormality. 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 Chest X-Ray 09/14/22 14:32 IMPRESSION: No acute cardiopulmonary process. Medications Medications Current Medications Acetaminophen (Acetaminophen 325 Mg Tablet) 650 mg PO Q6H PRN PRN Reason: Headache/Pain Mild Scale (1-3) Al Hydroxide/Mg Hydroxide (Magnesium Hydrox/Alum Hydrox 30 Ml Oral.Susp) 30 ml PO Q6H PRN PRN Reason: Heartburn/Nausea Amlodipine Besylate (Amlodipine Besylate 5 Mg Tablet) 5 mg PO DAILY [facility]; Protocol Last Admin: 09/20/22 08:32 Dose: 5 mg Calcium Carbonate (Calcium Carbonate 500 Mg Tablet) 1,000 mg PO DAILY [facility] Last Admin: 09/20/22 08:32 Dose: 1,000 mg Clonazepam (Clonazepam 0.5 Mg Tablet) 0.5 mg PO TID PRN PRN Reason: Anxiety Last Admin: 09/19/22 21:59 Dose: 0.5 mg Duloxetine HCl (Duloxetine Hcl 30 Mg Capsule.Dr) 30 mg PO BEDTIME [facility] Last Admin: 09/19/22 20:44 Dose: 30 mg Hydroxyzine HCl (Hydroxyzine Hcl 25 Mg Tablet) 25 mg PO Q6H PRN PRN Reason: Anxiety Last Admin: 09/19/22 21:59 Dose: 25 mg Magnesium Hydroxide (Milk Of Magnesia 30 Ml Oral.Susp) 30 ml PO DAILY PRN PRN Reason: Constipation Multivitamins/Vitamin C (Multivitamin Tablet) 1 tab PO DAILY [facility] Last Admin: 09/20/22 08:34 Dose: 1 tab Pravastatin Sodium (Pravastatin Sodium 20 Mg Tablet) 20 mg PO DAILY [facility] Last Admin: 09/20/22 08:33 Dose: 20 mg Quetiapine Fumarate (Quetiapine Fumarate 50 Mg Tablet) 50 mg PO BEDTIME [facility] Last Admin: 09/19/22 20:44 Dose: 50 mg Quetiapine Fumarate (Quetiapine Fumarate 50 Mg Tablet) 50 mg PO BID PRN PRN Reason: Agitation Last Admin: 09/15/22 18:40 Dose: 50 mg Trazodone HCl (Trazodone Hcl 50 Mg Tablet) 50 mg PO BEDTIME PRN PRN Reason: Insomnia Last Admin: 09/19/22 20:44 Dose: 50 mg Vitamin D (Cholecalciferol (Vitamin D3) 25 Mcg Tablet) 125 mcg PO DAILY [facility] Last Admin: 09/20/22 08:31 Dose: 125 mcg Allergies Allergies Allergy/AdvReac Type Severity Reaction Status Date / Time No Known Allergies Allergy Verified 09/07/22 14:18 [No Known Allergies*] Assessment & Plan Assessment & Plan (1) Major depressive disorder: Status: Acute Code(s): F32.9 - Major depressive disorder, single episode, unspecified (2) Panic disorder: Status: Acute Code(s): F41.0 - Panic disorder [episodic paroxysmal anxiety] Plan The patient is an middle-aged female with a long history of major depressive disorder panic disorder, fairly well control with SSRIs for more than 45 years, admitted for exacerbation of symptoms with lack of response with Paxil 50 mg p.o. daily. She acknowledged suicidal ideation and she was admitted into this facility for psychiatric stabilization. Plan 1. Paxil 20 mg p.o. daily today, we will start slow tapering of Paxil. On September 18 we will give Paxil 10 mg until Wednesday and start Cymbalta 30 mg p.o. q.h.s. on Wednesday. 2. Medical workout, we will do a TSH and other blood work. 3. Klonopin 0.5 mg p.o. t.i.d. p.r.n. anxiety. 4. Seroquel 50 mg p.o. q.h.s. at night to target insomnia. Also Seroquel 50 mg p.o. b.i.d. p.r.n. agitation. 5. Gather collateral information 09/19: no changes to tx plan 09/20: no changes to tx plan I spent minutes with the patient and/or on the patient floor today, greater than?50% of which was spent counseling/coordinating care. Reason for contiued inpatient stay Substantial Risk for: rapid decompensation and med/psych decompensation
[2022-09-20 18:00] VITALS: BP 128/64; PULSE 69; RESP 18; TEMP 36.7; O2SAT 94
[2022-09-20] MEDS: hydrOXYzine HCL 25 MG TABLET PO (20:00)
[2022-09-20] MEDS: DULoxetine HCl 30 MG CAPSULE.DR PO (21:22)
[2022-09-20] MEDS: clonazePAM 0.5 MG TABLET PO (21:23)
[2022-09-20] MEDS: QUEtiapine Fumarate 50 MG TABLET PO (21:23)
[2022-09-21 07:30] VITALS: BP 108/69; PULSE 67; RESP 17; TEMP 36.2; O2SAT 95
[2022-09-21] MEDS: Multivitamin TABLET 1 TAB PO (09:59)
[2022-09-21] MEDS: Cholecalciferol (Vitamin D3) 25 MCG TABLET 125 MCG PO (09:59)
[2022-09-21] MEDS: Pravastatin Sodium 20 MG TABLET PO (09:59)
[2022-09-21] MEDS: amLODIPine Besylate 5 MG TABLET PO (09:59)
[2022-09-21] MEDS: DULoxetine HCl 30 MG CAPSULE.DR PO ×3 (10:05→21:14)
--- NOTE | 2022-09-21 12:48 | HO.PSYCHPN ---
Subjective Subjective Date of Service: 09/21/22 Reason For Visit: SI, Depression, Anxiety Subjective Notes: Conditional Voluntary Interim History: The nursing staff reported that the patient's anxiety has lower, she reports anxiety 12/25. The staff has noticed that the patient has been less lab I will and she is more appropriate. The director social welfare reported that will have assessed family meeting tomorrow to p.m.. On interview the patient denies new symptoms she is pleasant and cooperative. Mental Status Exam Mental Status Exam Patient Appearance: Well Grooomed Patient Orientation: Person and Situation Level of Consciousness: Awake and Appropriate Patient Behavior: Cooperative and Passive Mood Description: Depressed and Nervous Affect Description: Constricted Patient Cognition Impaired: No Ability to Follow Directions: Good Speech Pattern: Clear Hallucinations: None Delusions: Not Present Thought Process: Linear Thought Content: positive for Circumstantial Judgement: Fair Diagnostics Vital Signs (24Hr): Vital Signs - 24 hr 09/20/22 18:00 09/21/22 07:30 Temperature 98.1 F 97.2 F Pulse Rate 69 67 Respiratory Rate 18 17 Blood Pressure 128/64 108/69 Pulse Oximetry 94 95 Oxygen Delivery Method Room Air Room Air BMI result Body Mass Index 25.5 Labs Results: 09/14/22 10:18 09/14/22 10:18 Imaging Radiology Impressions: ITS Impressions Head CT 09/14/22 12:35 IMPRESSION: - No acute intracranial abnormality. 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 Chest X-Ray 09/14/22 14:32 IMPRESSION: No acute cardiopulmonary process. Medications Medications Current Medications Acetaminophen (Acetaminophen 325 Mg Tablet) 650 mg PO Q6H PRN PRN Reason: Headache/Pain Mild Scale (1-3) Al Hydroxide/Mg Hydroxide (Magnesium Hydrox/Alum Hydrox 30 Ml Oral.Susp) 30 ml PO Q6H PRN PRN Reason: Heartburn/Nausea Amlodipine Besylate (Amlodipine Besylate 5 Mg Tablet) 5 mg PO DAILY [facility]; Protocol Last Admin: 09/21/22 09:59 Dose: 5 mg Calcium Carbonate (Calcium Carbonate 500 Mg Tablet) 1,000 mg PO DAILY [facility] Last Admin: 09/21/22 10:03 Dose: 1,000 mg Clonazepam (Clonazepam 0.5 Mg Tablet) 0.5 mg PO TID PRN PRN Reason: Anxiety Last Admin: 09/20/22 21:23 Dose: 0.5 mg Duloxetine HCl (Duloxetine Hcl 30 Mg Capsule.Dr) 30 mg PO BID [facility] Last Admin: 09/21/22 10:06 Dose: 30 mg Hydroxyzine HCl (Hydroxyzine Hcl 25 Mg Tablet) 25 mg PO Q6H PRN PRN Reason: Anxiety Last Admin: 09/20/22 20:00 Dose: 25 mg Magnesium Hydroxide (Milk Of Magnesia 30 Ml Oral.Susp) 30 ml PO DAILY PRN PRN Reason: Constipation Multivitamins/Vitamin C (Multivitamin Tablet) 1 tab PO DAILY [facility] Last Admin: 09/21/22 09:59 Dose: 1 tab Pravastatin Sodium (Pravastatin Sodium 20 Mg Tablet) 20 mg PO DAILY [facility] Last Admin: 09/21/22 09:59 Dose: 20 mg Quetiapine Fumarate (Quetiapine Fumarate 50 Mg Tablet) 50 mg PO BEDTIME [facility] Last Admin: 09/20/22 21:23 Dose: 50 mg Quetiapine Fumarate (Quetiapine Fumarate 50 Mg Tablet) 50 mg PO BID PRN PRN Reason: Agitation Last Admin: 09/15/22 18:40 Dose: 50 mg Trazodone HCl (Trazodone Hcl 50 Mg Tablet) 50 mg PO BEDTIME PRN PRN Reason: Insomnia Last Admin: 09/19/22 20:44 Dose: 50 mg Vitamin D (Cholecalciferol (Vitamin D3) 25 Mcg Tablet) 125 mcg PO DAILY [facility] Last Admin: 09/21/22 09:59 Dose: 125 mcg Allergies Allergies Allergy/AdvReac Type Severity Reaction Status Date / Time No Known Allergies Allergy Verified 09/07/22 14:18 [No Known Allergies*] Assessment & Plan Assessment & Plan (1) Major depressive disorder: Status: Acute Code(s): F32.9 - Major depressive disorder, single episode, unspecified (2) Panic disorder: Status: Acute Code(s): F41.0 - Panic disorder [episodic paroxysmal anxiety] Plan The patient is an middle-aged female with a long history of major depressive disorder panic disorder, fairly well control with SSRIs for more than 45 years, admitted for exacerbation of symptoms with lack of response with Paxil 50 mg p.o. daily. She acknowledged suicidal ideation and she was admitted into this facility for psychiatric stabilization. Plan 1. Paxil 20 mg p.o. daily today, we will start slow tapering of Paxil. On September 18 we will give Paxil 10 mg until Wednesday and start Cymbalta 30 mg p.o. q.h.s. on Wednesday. On September 21, Cymbalta is increased up to 30 mg p.o. b.i.d.. 2. Medical workout, we will do a TSH and other blood work. 3. Klonopin 0.5 mg p.o. t.i.d. p.r.n. anxiety. 4. Seroquel 50 mg p.o. q.h.s. at night to target insomnia. Also Seroquel 50 mg p.o. b.i.d. p.r.n. agitation. 5. Gather collateral information I spent __20____ minutes with the patient and/or on the patient floor today, greater than?50% of which was spent counseling/coordinating care. Reason for contiued inpatient stay Substantial Risk for: inability to function, rapid decompensation and med/psych decompensation
[2022-09-21 18:00] VITALS: BP 141/79; PULSE 69; RESP 12; TEMP 36.6; O2SAT 94
[2022-09-21] MEDS: QUEtiapine Fumarate 50 MG TABLET PO (21:14)
[2022-09-21] MEDS: clonazePAM 0.5 MG TABLET PO (21:15)
[2022-09-22 06:00] VITALS: BP 120/72; PULSE 70; RESP 16; TEMP 36.7; O2SAT 98
[2022-09-22] MEDS: Cholecalciferol (Vitamin D3) 25 MCG TABLET 125 MCG PO (09:17)
[2022-09-22] MEDS: Pravastatin Sodium 20 MG TABLET PO (09:17)
[2022-09-22] MEDS: amLODIPine Besylate 5 MG TABLET PO (09:17)
[2022-09-22] MEDS: Multivitamin TABLET 1 TAB PO (09:17)
[2022-09-22] MEDS: DULoxetine HCl 30 MG CAPSULE.DR PO ×2 (09:18→20:42)
--- NOTE | 2022-09-22 13:41 | P.PNPSI_ITS ---
Subjective Subjective Date of Service: 09/22/22 Reason For Visit: SI, Depression, Anxiety Subjective Notes: Conditional Voluntary Interim History: The nursing staff reported the patient looks better, her anxiety was described 10/27, she had been visible in the unit attending to groups. She slept 8 hours but needed Klonopin at night. On interview the patient reported that she is feeling much better since Cymbalta was started, she denies tremors or any side effects with the cross taper from SSRIs to SNRIs. Today we have a family meeting with her and family for discharge planning. Mental Status Exam Mental Status Exam Patient Appearance: Well Grooomed Patient Orientation: Person and Situation Level of Consciousness: Awake and Appropriate Patient Behavior: Cooperative and Passive Mood Description: Calm Affect Description: Constricted Patient Cognition Impaired: Yes Ability to Follow Directions: Good Speech Pattern: Clear Hallucinations: None Delusions: Not Present Thought Process: Distracted and Linear Thought Content: positive for Goal Oriented and positive for Logical Judgement: Fair Diagnostics Vital Signs (24Hr): Vital Signs - 24 hr 09/21/22 18:00 09/22/22 06:00 Temperature 97.9 F 98.0 F Pulse Rate 69 70 Respiratory Rate 12 16 Blood Pressure 141/79 H 120/72 Pulse Oximetry 94 98 Oxygen Delivery Method Room Air BMI result Body Mass Index 25.5 Labs Results: 09/14/22 10:18 09/14/22 10:18 Imaging Radiology Impressions: ITS Impressions Head CT 09/14/22 12:35 IMPRESSION: - No acute intracranial abnormality. 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 Chest X-Ray 09/14/22 14:32 IMPRESSION: No acute cardiopulmonary process. Medications Medications Current Medications Acetaminophen (Acetaminophen 325 Mg Tablet) 650 mg PO Q6H PRN PRN Reason: Headache/Pain Mild Scale (1-3) Al Hydroxide/Mg Hydroxide (Magnesium Hydrox/Alum Hydrox 30 Ml Oral.Susp) 30 ml PO Q6H PRN PRN Reason: Heartburn/Nausea Amlodipine Besylate (Amlodipine Besylate 5 Mg Tablet) 5 mg PO DAILY HARESH; Protocol Last Admin: 09/22/22 09:17 Dose: 5 mg Calcium Carbonate (Calcium Carbonate 500 Mg Tablet) 1,000 mg PO DAILY HARESH Last Admin: 09/22/22 09:17 Dose: 1,000 mg Clonazepam (Clonazepam 0.5 Mg Tablet) 0.5 mg PO TID PRN PRN Reason: Anxiety Last Admin: 09/21/22 21:15 Dose: 0.5 mg Duloxetine HCl (Duloxetine Hcl 30 Mg Capsule.Dr) 30 mg PO BID [facility] Last Admin: 09/22/22 09:18 Dose: 30 mg Hydroxyzine HCl (Hydroxyzine Hcl 25 Mg Tablet) 25 mg PO Q6H PRN PRN Reason: Anxiety Last Admin: 09/20/22 20:00 Dose: 25 mg Magnesium Hydroxide (Milk Of Magnesia 30 Ml Oral.Susp) 30 ml PO DAILY PRN PRN Reason: Constipation Multivitamins/Vitamin C (Multivitamin Tablet) 1 tab PO DAILY [facility] Last Admin: 09/22/22 09:17 Dose: 1 tab Pravastatin Sodium (Pravastatin Sodium 20 Mg Tablet) 20 mg PO DAILY [facility] Last Admin: 09/22/22 09:17 Dose: 20 mg Quetiapine Fumarate (Quetiapine Fumarate 50 Mg Tablet) 50 mg PO BEDTIME [facility] Last Admin: 09/21/22 21:14 Dose: 50 mg Quetiapine Fumarate (Quetiapine Fumarate 50 Mg Tablet) 50 mg PO BID PRN PRN Reason: Agitation Last Admin: 09/15/22 18:40 Dose: 50 mg Trazodone HCl (Trazodone Hcl 50 Mg Tablet) 50 mg PO BEDTIME PRN PRN Reason: Insomnia Last Admin: 09/19/22 20:44 Dose: 50 mg Vitamin D (Cholecalciferol (Vitamin D3) 25 Mcg Tablet) 125 mcg PO DAILY [facility] Last Admin: 09/22/22 09:17 Dose: 125 mcg Allergies Allergies Allergy/AdvReac Type Severity Reaction Status Date / Time No Known Allergies Allergy Verified 09/07/22 14:18 [No Known Allergies*] Assessment & Plan Assessment & Plan (1) Major depressive disorder: Status: Acute Code(s): F32.9 - Major depressive disorder, single episode, unspecified (2) Panic disorder: Status: Acute Code(s): F41.0 - Panic disorder [episodic paroxysmal anxiety] Plan The patient is an middle-aged female with a long history of major depressive disorder panic disorder, fairly well control with SSRIs for more than 45 years, admitted for exacerbation of symptoms with lack of response with Paxil 50 mg p.o. daily. She acknowledged suicidal ideation and she was admitted into this facility for psychiatric stabilization. Plan 1. Paxil 20 mg p.o. daily today, we will start slow tapering of Paxil. On September 18 we will give Paxil 10 mg until Wednesday and start Cymbalta 30 mg p.o. q.h.s. on Wednesday. On September 21, Cymbalta is increased up to 30 mg p.o. b.i.d.. 2. Medical workout, we will do a TSH and other blood work. The results were within normal limits 3. Klonopin 0.5 mg p.o. t.i.d. p.r.n. anxiety. 4. Seroquel 50 mg p.o. q.h.s. at night to target insomnia. Also Seroquel 50 mg p.o. b.i.d. p.r.n. agitation. 5. Gather collateral information from the family at the moment of the family meeting. 6. Discharge planning. I spent ___20___ minutes with the patient and/or on the patient floor today, greater than?50% of which was spent counseling/coordinating care. Reason for contiued inpatient stay Substantial Risk for: inability to function, rapid decompensation and med/psych decompensation
[2022-09-22 18:00] VITALS: BP 158/79; PULSE 73; RESP 18; TEMP 36.7; O2SAT 94
[2022-09-22] MEDS: clonazePAM 0.5 MG TABLET PO (20:42)
[2022-09-22] MEDS: hydrOXYzine HCL 25 MG TABLET PO (20:42)
[2022-09-22] MEDS: QUEtiapine Fumarate 50 MG TABLET PO (20:43)
[2022-09-22] MEDS: traZODone HCL 50 MG TABLET PO (20:43)
[2022-09-23 08:00] VITALS: BP 120/72; PULSE 70; RESP 17; TEMP 36.1; O2SAT 95
[2022-09-23] MEDS: amLODIPine Besylate 5 MG TABLET PO (08:30)
[2022-09-23] MEDS: Multivitamin TABLET 1 TAB PO (08:30)
[2022-09-23] MEDS: Pravastatin Sodium 20 MG TABLET PO (08:30)
[2022-09-23] MEDS: DULoxetine HCl 30 MG CAPSULE.DR PO ×2 (08:31→20:08)
--- NOTE | 2022-09-23 13:02 | P.PNPSI_ITS ---
Subjective Subjective Date of Service: 09/23/22 Reason For Visit: SI, Depression, Anxiety Subjective Notes: Conditional Voluntary Interim History: The nursing staff reported the patient had been fully compliant with treatment, she slept very well. The occupational therapist that she was seen participating actively in groups. The social media specialist reported the family meeting was a success yesterday very supportive, and we came up with a good discharge planning. On interview the patient feels less anxious no side effects with Cymbalta, future oriented and hopeful that she will improved more as an outpatient. We will discuss discharge planning for tomorrow Mental Status Exam Mental Status Exam Patient Appearance: Well Grooomed Patient Orientation: Person and Situation Level of Consciousness: Awake and Appropriate Patient Behavior: Cooperative Mood Description: Withdrawn Affect Description: Constricted Patient Cognition Impaired: Yes Ability to Follow Directions: Good Speech Pattern: Clear Hallucinations: None Delusions: Not Present Thought Process: Goal Oriented and Linear Thought Content: positive for Circumstantial and positive for Logical Judgement: Fair Diagnostics Vital Signs (24Hr): Vital Signs - 24 hr 09/22/22 18:00 Temperature 98.1 F Pulse Rate 73 Respiratory Rate 18 Blood Pressure 158/79 H Pulse Oximetry 94 Oxygen Delivery Method Room Air BMI result Body Mass Index 25.5 Labs Results: 09/14/22 10:18 09/14/22 10:18 Imaging Radiology Impressions: ITS Impressions Head CT 09/14/22 12:35 IMPRESSION: - No acute intracranial abnormality. 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 Chest X-Ray 09/14/22 14:32 IMPRESSION: No acute cardiopulmonary process. Medications Medications Current Medications Acetaminophen (Acetaminophen 325 Mg Tablet) 650 mg PO Q6H PRN PRN Reason: Headache/Pain Mild Scale (1-3) Al Hydroxide/Mg Hydroxide (Magnesium Hydrox/Alum Hydrox 30 Ml Oral.Susp) 30 ml PO Q6H PRN PRN Reason: Heartburn/Nausea Amlodipine Besylate (Amlodipine Besylate 5 Mg Tablet) 5 mg PO DAILY HARESH; Protocol Last Admin: 09/23/22 08:30 Dose: 5 mg Calcium Carbonate (Calcium Carbonate 500 Mg Tablet) 1,000 mg PO DAILY HARESH Last Admin: 09/23/22 08:30 Dose: 1,000 mg Clonazepam (Clonazepam 0.5 Mg Tablet) 0.5 mg PO TID PRN PRN Reason: Anxiety Last Admin: 09/22/22 20:42 Dose: 0.5 mg Duloxetine HCl (Duloxetine Hcl 30 Mg Capsule.Dr) 30 mg PO BID [facility] Last Admin: 09/23/22 08:31 Dose: 30 mg Hydroxyzine HCl (Hydroxyzine Hcl 25 Mg Tablet) 25 mg PO Q6H PRN PRN Reason: Anxiety Last Admin: 09/22/22 20:42 Dose: 25 mg Magnesium Hydroxide (Milk Of Magnesia 30 Ml Oral.Susp) 30 ml PO DAILY PRN PRN Reason: Constipation Multivitamins/Vitamin C (Multivitamin Tablet) 1 tab PO DAILY [facility] Last Admin: 09/23/22 08:30 Dose: 1 tab Pravastatin Sodium (Pravastatin Sodium 20 Mg Tablet) 20 mg PO DAILY [facility] Last Admin: 09/23/22 08:30 Dose: 20 mg Quetiapine Fumarate (Quetiapine Fumarate 50 Mg Tablet) 50 mg PO BEDTIME [facility] Last Admin: 09/22/22 20:43 Dose: 50 mg Quetiapine Fumarate (Quetiapine Fumarate 50 Mg Tablet) 50 mg PO BID PRN PRN Reason: Agitation Last Admin: 09/15/22 18:40 Dose: 50 mg Trazodone HCl (Trazodone Hcl 50 Mg Tablet) 50 mg PO BEDTIME PRN PRN Reason: Insomnia Last Admin: 09/22/22 20:43 Dose: 50 mg Vitamin D (Cholecalciferol (Vitamin D3) 25 Mcg Tablet) 125 mcg PO DAILY [facility] Last Admin: 09/22/22 09:17 Dose: 125 mcg Allergies Allergies Allergy/AdvReac Type Severity Reaction Status Date / Time No Known Allergies Allergy Verified 09/07/22 14:18 [No Known Allergies*] Assessment & Plan Assessment & Plan (1) Major depressive disorder: Status: Acute Code(s): F32.9 - Major depressive disorder, single episode, unspecified (2) Panic disorder: Status: Acute Code(s): F41.0 - Panic disorder [episodic paroxysmal anxiety] Plan The patient is an middle-aged female with a long history of major depressive disorder panic disorder, fairly well control with SSRIs for more than 45 years, admitted for exacerbation of symptoms with lack of response with Paxil 50 mg p.o. daily. She acknowledged suicidal ideation and she was admitted into this facility for psychiatric stabilization. Plan 1. Paxil 20 mg p.o. daily today, we will start slow tapering of Paxil. On September 18 we will give Paxil 10 mg until Wednesday and start Cymbalta 30 mg p.o. q.h.s. on Wednesday. On September 21, Cymbalta is increased up to 30 mg p.o. b.i.d.. 2. Medical workout, we will do a TSH and other blood work. The results were within normal limits 3. Klonopin 0.5 mg p.o. t.i.d. p.r.n. anxiety. 4. Seroquel 50 mg p.o. q.h.s. at night to target insomnia. Also Seroquel 50 mg p.o. b.i.d. p.r.n. agitation. 5. Gather collateral information from the family at the moment of the family meeting. 6. Discharge planning. Discharge for tomorrow I spent ___20___ minutes with the patient and/or on the patient floor today, greater than?50% of which was spent counseling/coordinating care. Reason for contiued inpatient stay Substantial Risk for: inability to function, rapid decompensation and med/psych decompensation
[2022-09-23 18:00] VITALS: BP 113/75; PULSE 76; RESP 16; TEMP 36.7; O2SAT 95
[2022-09-23] MEDS: clonazePAM 0.5 MG TABLET PO (20:08)
[2022-09-23] MEDS: traZODone HCL 50 MG TABLET PO (20:08)
[2022-09-23] MEDS: QUEtiapine Fumarate 50 MG TABLET PO (20:09)
[2022-09-24 06:00] VITALS: BP 132/77; PULSE 76; RESP 18; TEMP 36.6; O2SAT 96
[2022-09-24 07:00] VITALS: BMI 26.3
--- NOTE | 2022-09-24 07:48 | PM.PSYDC ---
DS: Providers Provider Date of Service: 09/24/22 Date of admission: 09/14/22 17:27 Date of discharge: 09/24/22 Primary care physician: Joi Russell MD Attending physician on discharge: Palmer Ramirez DS: Diagnosis Discharge Diagnosis (1) Major depressive disorder: Status: Acute (2) Panic disorder: Status: Acute DS: Medications Discharge Medications Home Medications: Home Medications Medication Instructions Recorded Confirmed Bifidobacterium infantis 4 mg 4 mg PO DAILY 10/24/20 09/14/22 capsule (Align) calcium carbonate 600 mg calcium 1,200 mg PO DAILY 10/24/20 09/14/22 (1,500 mg) tablet (Calcium) cholecalciferol (vitamin D3) 125 125 mcg PO DAILY 10/24/20 09/14/22 mcg (5,000 unit) tablet (Vitamin D3) multivitamin 1 tab PO DAILY 10/24/20 09/14/22 amlodipine 5 mg tablet (Norvasc) 5 mg PO DAILY 09/14/22 09/14/22 Previous Rx's Medication Instructions Recorded methylcellulose (laxative) 500 mg 1,000 mg PO BID constipation 30 07/31/20 tablet (Citrucel) days #120 tabs pravastatin 20 mg tablet 20 mg PO DAILY #30 caps 07/08/22 alendronate 70 mg tablet (Fosamax) 70 mg PO QWEEK 90 days #13 tabs 07/27/22 paroxetine HCl 10 mg tablet 10 mg PO DAILY 90 days #90 tabs 09/02/22 paroxetine HCl 40 mg tablet 40 mg PO DAILY 90 days #90 tabs 09/02/22 trazodone 50 mg tablet 50 mg PO BEDTIME PRN sleep 90 days 09/03/22 #90 tabs lorazepam 0.5 mg tablet (Ativan) 0.5 mg PO BEDTIME PRN anxiety #10 09/11/22 tabs Mental Status Exam Mental Status Exam Patient Appearance: Well Grooomed and Appropriate Patient Orientation: Person, Place, Time and Situation Level of Consciousness: Awake and Appropriate Patient Behavior: Cooperative Mood Description: Calm Affect Description: Constricted Patient Cognition Impaired: No Ability to Follow Directions: Good Speech Pattern: Clear Memory Description: Intact Hallucinations: None Delusions: Not Present Thought Process: Goal Oriented and Linear Thought Content: positive for Intact Judgement: Fair Data Imaging Diagnostic Imaging Impressions Head CT 09/14/22 12:35 IMPRESSION: - No acute intracranial abnormality. 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 Chest X-Ray 09/14/22 14:32 IMPRESSION: No acute cardiopulmonary process. DS: Summary Hospital Course Hospital Course: The patient was initially admitted for exacerbation of depression with suicidal ideation. The patient also suffers from panic disorder and in the last months she had not been responding to SSRIs. Please see the HPI of the admission note for further details. Her regular prescriber in the community contact us and provide us with more collateral information. On admission, we discussed her treatment for depression and panic disorder and, apparently, she has been doing fairly well with Prozac and later Paxil in the last 35 years but it stopped working a few months ago. We discussed at length risks, benefits, side-effects and alternatives and she agreed to slowly cross taper Paxil 50 mg to Cymbalta 30 mg p.o. b.i.d.. We start a slow tapering of Paxil without any problems and later on we started Cymbalta that he was titrated up to 30 mg p.o. b.i.d. with no side effects. The patient did not presented discontinuation syndrome or serotonergic complications. While she was in the unit, we noticed that she was extremely anxious so we decided to use Klonopin p.r.n. with for improvement. Also her insomnia did not respond to trazodone and since the patient is very depressed and anxious, she agreed to try a low dose of Seroquel at night as augmentation therapy and to target insomnia. The patient responded very well to the cross taper, she was future oriented, suicidality was resolved and her level of anxiety was controlled. We had several family meetings and the patient has a safe discharge plan. Since there were no safety concerns discharge planning was discussed. Time spent discussing smoking cessation with patient: 3 to 10 minutes Status at Discharge Cognitive/behavioral status at discharge: At baseline Functional status at discharge: independent ambulation Overall status at discharge: patient is back to baseline Time Spent with Patient Time attestation: Total time spent providing and/or coordinating discharge services: Time spent: Less than 30 minutes Discharge Plan Discharge Anticipated Discharge Date/Time: 09/24/22 11:53 Patient Disposition: Home, Self-Care Discharge Diagnosis: Major depressive disorder recurrent episode severe without psychosis. Panic disorder without agoraphobia. Referrals: [facility] therapist - Christy Swartz [Other] - 09/30/22 11:00 am (Your next therapy appointment at [facility] is scheduled for 09/30/22 at 11am. ) [facility] Psychiatry- Dr Conner Manjarrez [Other] - 10/20/22 9:00 am (Your next psychiatry appointment with Dr Conner Manjarrez is scheduled for 10/20/22 at 9AM. This appointment is in person.) Joi Watson MD [Primary Care Provider] - 1 Week (Your primary care provider's office will contact you directly with next PCP appointment. There were no immediate availabilities and office stated they would contact you with next appointment after discharge from [facility].) Discharge Medications: New trazodone 50 mg Tablet 50 mg PO BEDTIME PRN (Reason: Insomnia) 30 Days Qty: 30 0RF clonazepam 0.5 mg Tablet 0.5 mg PO TID PRN (Reason: Anxiety) 30 Days Qty: 90 0RF hydroxyzine HCl 25 mg Tablet 25 mg PO Q6H PRN (Reason: Anxiety) 30 Days Qty: 60 0RF duloxetine 30 mg Capsule,Delayed Release(Dr/Ec) 30 mg PO BID 30 Days Qty: 60 0RF quetiapine 50 mg Tablet 50 mg PO BEDTIME 30 Days Qty: 30 0RF Continued multivitamin Tablet 1 tab PO DAILY Qty: 30 0RF alendronate [Fosamax] 70 mg tablet 70 mg PO QWEEK 90 Days Qty: 13 1RF amlodipine [Norvasc] 5 mg tablet 5 mg PO DAILY 30 Days Qty: 30 0RF Rx Instructions: patient is advised that she has an order for labs non fasting and should get this done to evaluate her potassium level and she understands/agrees calcium carbonate [Calcium 600] 600 mg calcium (1,500 mg) Tablet 1,200 mg PO DAILY 30 Days Qty: 60 0RF pravastatin 20 mg tablet 20 mg PO DAILY Qty: 30 6RF Citrucel 500 mg tablet 1,000 mg PO BID 30 Days Qty: 120 6RF Rx Instructions: Take two tablets by mouth twice a day Align 4 mg Capsule 4 mg PO DAILY 30 Days Qty: 30 0RF cholecalciferol (vitamin D3) [Vitamin D3] 125 mcg (5,000 unit) Tablet 125 mcg PO DAILY 30 Days Qty: 30 0RF Discontinued paroxetine HCl 10 mg tablet 10 mg PO DAILY 90 Days Qty: 90 1RF paroxetine HCl 40 mg tablet 40 mg PO DAILY 90 Days Qty: 90 3RF trazodone 50 mg tablet 50 mg PO BEDTIME PRN (Reason: sleep) 90 Days Qty: 90 0RF lorazepam [Ativan] 0.5 mg tablet 0.5 mg PO BEDTIME PRN (Reason: anxiety) Qty: 10 0RF Discharge Orders: Discharge Order (Routine); Ordered 09/24/22 Ordered By: Palmer Ramirez Diet: Advance to usual diet Activity on Discharge: As tolerated Stand Alone Forms: Patient Portal Discharge page Care Plan Goals: Care plan goals achieved in this admission Health Concerns: Continue treatment by primary care physician as an outpatient Plan of Treatment: Continue treatment as an outpatient. Assessment: The patient is a middle-aged female with a long history of major depressive disorder and panic disorder without agoraphobia who was admitted for exacerbation of dysphoria with suicidal ideation. The patient had responded to SSRIs for more than 35 years but so far, it stopped working. We cross tapered to Cymbalta with for improvement. At this moment no safety concerns ready for discharge.
[2022-09-24] MEDS: Multivitamin TABLET 1 TAB PO (09:30)
[2022-09-24] MEDS: Cholecalciferol (Vitamin D3) 25 MCG TABLET 125 MCG PO (09:30)
[2022-09-24] MEDS: Pravastatin Sodium 20 MG TABLET PO (09:30)
[2022-09-24] MEDS: amLODIPine Besylate 5 MG TABLET PO (09:30)
[2022-09-24] MEDS: DULoxetine HCl 30 MG CAPSULE.DR PO (09:30)
--- NOTE | 2022-09-24 13:46 | PC.NURSE ---
Patient verbalized readiness for discharge. Follow up appointments made and reviewed. All discharge instructions reviewed with patient who verbalized understanding. Patient denies SI/HI/AH/VH. Patient escorted to front of hospital by staff
== END 2022-09-24 13:50 | disposition home or self-care (01) | DRG 885 ==
LOC: HO.ED 15:13 → HO.PGERI 17:28
PROVIDERS: Physician Assistant; Admitting Provider Registered Nurse; Emergency Provider Emergency Medicine; PCP Internal Medicine; Visit Provider Registered Nurse
DX: F33.2 Major depressive disorder, recurrent severe without psychotic features (principal); R45.851 Suicidal ideations; F41.0 Panic disorder [episodic paroxysmal anxiety]; E78.5 Hyperlipidemia, unspecified; Z20.822 Contact with and (suspected) exposure to COVID-19; Z96.651 Presence of right artificial knee joint; Z79.899 Other long term (current) drug therapy
CPT/HCPCS: 36415; 70450; 71045; 80048; 80061; 80076; 80143; 80179; 80307; 81001; 82077; 82607; 82746; 83036; 83735; 84439; 84443; 84484; 85025; 87635; 93005; 99283; 99284; 99285

== ENCOUNTER 2022-10-09 09:08 | Inpatient (IN) | payer MEDICARE, OTHER, SELFPAY ==
--- NOTE | 2022-10-09 09:15 | ECG_ITS ---
Test Reason : anxiety/ chest pain Blood Pressure : / mmHG Vent. Rate : 090 BPM Atrial Rate : 090 BPM P-R Int : 164 ms QRS Dur : 082 ms QT Int : 380 ms P-R-T Axes : -21 045 045 degrees QTc Int : 464 ms Sinus rhythm with occasional Premature ventricular complexes Otherwise normal ECG When compared with ECG of 14-SEP-2022 14:13, Premature ventricular complexes are now Present Premature atrial complexes are no longer Present Nonspecific T wave abnormality no longer evident in Anterior leads Referred By: Generic ED Physician Electronically Signed By:David Feng
[2022-10-09 09:16] VITALS: PULSE 101; RESP 20; TEMP 36.9; O2SAT 95; BMI 24.3
--- NOTE | 2022-10-09 09:17 | ED.GENADULT ---
HPI - General Adult General Chief complaint: Psychiatric Symptoms Stated complaint: crisis Time Seen by Provider: 10/09/22 09:17 Source: patient Mode of arrival: ambulatory Limitations: no limitations History of Present Illness HPI narrative: Patient is a 67 year old assigned female at with a history of MDD and HTN presenting to the emergency department today with increased depression, anxiety, and suicidal ideation. Patient states that she was discharged on 09/24/2022 from our geriatric psych unit. Patient states that she feels as though she is jumping out of her skin and she has a plan of overdosing on her medications. Patient denies any dizziness, lightheadedness, abdominal pain, nausea, vomiting, fever, chills, blurry vision, double vision, loss of vision, chest pain, difficulty breathing, shortness of breath, back pain, night sweats, pain with urination, increased urinary frequency, increased urinary urgency, blood in her urine or stool, syncope or a near syncopal episode, recent trauma or falls, bowel incontinence, bladder incontinence, bowel retention, bladder retention, or any other complaints at this time. Onset (ago): day(s) Severity: mild Severity scale (1-10): 3 Relieving factors: none Exacerbating factors: none Associated symptoms: denies other symptoms Treatments prior to arrival: none Related Data Previous Rx's Medication Instructions Recorded Bifidobacterium infantis 4 mg 4 mg PO DAILY 30 days #30 caps 09/24/22 capsule (Align) alendronate 70 mg tablet (Fosamax) 70 mg PO QWEEK 90 days #13 tabs 09/24/22 amlodipine 5 mg tablet (Norvasc) 5 mg PO DAILY 30 days #30 tabs 09/24/22 calcium carbonate 600 mg calcium 1,200 mg PO DAILY 30 days #60 tabs 09/24/22 (1,500 mg) tablet (Calcium) cholecalciferol (vitamin D3) 125 125 mcg PO DAILY 30 days #30 tabs 09/24/22 mcg (5,000 unit) tablet (Vitamin D3) clonazepam 0.5 mg tablet 0.5 mg PO TID PRN Anxiety 30 days 09/24/22 #90 tabs duloxetine 30 mg capsule,delayed 30 mg PO BID 30 days #60 caps 09/24/22 release hydroxyzine HCl 25 mg tablet 25 mg PO Q6H PRN Anxiety 30 days 09/24/22 #60 tabs methylcellulose (laxative) 500 mg 1,000 mg PO BID constipation 30 09/24/22 tablet (Citrucel) days #120 tabs multivitamin 1 tab PO DAILY #30 tabs 09/24/22 pravastatin 20 mg tablet 20 mg PO DAILY #30 caps 09/24/22 quetiapine 50 mg tablet 50 mg PO BEDTIME 30 days #30 tabs 09/24/22 trazodone 50 mg tablet 50 mg PO BEDTIME PRN Insomnia 30 09/24/22 days #30 tabs Allergies Allergy/AdvReac Type Severity Reaction Status Date / Time No Known Allergies Allergy Verified 09/07/22 14:18 [No Known Allergies*] Review of Systems Constitutional: Constitutional: Reports no additional constitutional complaints, Denies chills, Denies fever(s) and Denies night sweats Eyes: Eyes: Reports no additional eye complaints, Denies blurry vision, Denies change in vision, Denies diplopia, Denies eye discharge, Denies loss of vision and Denies eye pain ENT: Denies dizziness Cardiovascular: Cardiovascular: Reports no additional cardiovascular complaints, Denies chest pain, Denies lightheadedness, Denies Loss of Consciousness and Denies dyspnea Respiratory: Respiratory: Reports no additional respiratory complaints and Denies dyspnea Gastrointestinal: Gastrointestinal: Reports no additional gastrointestinal complaints, Denies abdominal pain, Denies melena, Denies hematochezia, Denies change in bowel habits and Denies change in stool character Genitourinary: Genitourinary: Denies hematuria, Denies urinary frequency, Denies dysuria, Denies urinary incontinence, Denies urinary hesitancy and Denies urinary urgency Musculoskeletal: Musculoskeletal: Reports no additional musculoskeletal complaints, Denies numbness and Denies tingling Neurologic: Denies dizziness, Denies loss of vision, Denies numbness and Denies tingling Psychiatric: Psychiatric: Reports no additional psychiatric complaints, Reports anxiety and Reports suicidal ideation Endocrine: Endocrine: Reports no additional endocrine complaints Hematologic/Lymphatic: Hematologic/Lymphatic: Reports no additional hematologic/lymphatic complaints Allergic/Immunologic: Allergic/Immunologic: Reports no additional allergic/immunologic complaints PMFSH Past Medical History Attestation statement: The following information was validated with the patient. Source: old records reviewed and nursing notes reviewed Medical History Depression Diverticulitis Dyslipidemia Essential hypertension History of anxiety Hyperkalemia Osteoarthritis (arthritis due to wear and tear of joints) PAC (premature atrial contraction) Surgical History History of carpal tunnel release History of total right knee replacement Hx of colonoscopy Family History Family History Mother Dementia Father No problems noted. Social History Social History Household Members: Spouse Housing: House Are you a primary early breastfeeding care specialist to a significant other at home: No Do you presently have visiting nurse or other home services: No Alcohol intake: never Patient Tobacco Use Status: Never used Tobacco Smoked in Last 30 Days: No e-Cigarette/Vaping Use: Never Used Second Hand Smoke Exposure: No Any prior treatment program specific to substance use: No Advance Directives: Yes Advance Directives on File: Yes Advance Directives Date on File: 07/31/20 Healthcare Proxy: No Guardian: No service: No Current occupational status: retired Current occupation: Right Handed Sexual orientation: Straight/Heterosexual Cognitive needs: No Hearing needs: No Vision needs: No Physical Exam ED Vital Signs: Vital Signs - 24 hr 10/09/22 09:16 Temperature 98.5 F Pulse Rate 101 H Respiratory Rate 20 Pulse Oximetry 95 Oxygen Delivery Method Room Air BMI result Body Mass Index 24.3 Const General: cooperative, no acute distress, alert and awake Nutritional Appearance: well nourished Orientation/consciousness: patient oriented x3 Limitations: no limitations [facility] Head: Yes normal to inspection and Yes atraumatic Ears: hearing grossly normal bilaterally and external ears normal General nose exam: Normal external nose present, no nasal discharge noted and no epistaxis Face and sinus: Yes normal facial exam, No abrasion and No laceration Mouth: Normal oral and palatal mucosa present, no drooling and no muffled voice Eyes General: appearance normal, both eyes and all related structures Periorbital: periorbital findings normal Eyelids: Yes eyelids normal Conjunctivae: conjunctivae normal Pupils: Equal, round and reactive pupils present EOM: EOMs intact bilaterally Neck Neck: Yes normal visual inspection, Yes full ROM and Yes no lymphadenopathy Chest Chest palpation & inspection: normal inspection of the chest Resp Effort & Inspection: normal respiratory effort and able to speak in complete sentences Auscultation: clear to auscultation bilaterally Cardio Rate: regular rate Rhythm: regular rhythm GI Inspection: Yes normal to inspection Palpation (GI): Soft to palpation, not firm, nontender, no guarding and not rigid Neuro General: patient oriented x3 and moves all extremities Cranial nerves: Yes Equal, round and reactive pupils present Cognition (Neuro): normal cognition Motor exam (neuro): 5/5 motor strength present throughout Sensory Exam: Normal double simultaneous stimulation for sensation Coordination: [id number] test normal Extrem General: Yes normal to inspection, Yes full ROM and Yes capillary refill normal Psych Appearance: grossly normal Mental Status: mental status grossly normal Affect: Sad affect present Attitude: cooperative Thought process: Normal thought process present Thought content: Suicidality present Insight: Fair insight present (Psych) Judgement: Fair judgement present (Psych) Medications Administered Generic Name Dose Route Start Last Admin Trade Name Freq PRN Reason Stop Dose Admin Lorazepam 1 mg 10/09/22 13:15 10/09/22 14:34 Lorazepam 1 Mg Tablet PO Not Given BID HARESH Discontinued Medications Generic Name Dose Route Start Last Admin Trade Name Freq PRN Reason Stop Dose Admin Lorazepam 2 mg 10/09/22 09:41 10/09/22 09:50 Lorazepam 1 Mg Tablet PO 10/09/22 09:42 2 mg ONCE ONE Administration Medical Decision Making Medical Decision Making [facility] Narrative: Patient is a 67 year old assigned female at with a history of MDD and HTN presenting to the emergency department today with increased anxiety and suicidal ideation. Patient's physical exam was unremarkable. Patient's blood work was unremarkable. I explained my physical exam findings as well as all test results to the patient. I answered all questions asked by the patient. Patient was evaluated by the behavioral health and psychiatric team who recommended psychiatric admission. Patient verbalized agreement and understanding with this treatment plan and admission. Differential Diagnosis Differential Diagnoses: The differential diagnosis associated with the presentation includes suicidal ideation Lab Data [facility] Lab Attestation statement: I reviewed the patient's lab results. Result Diagrams: 10/09/22 10:27 10/09/22 10:27 Labs: Lab Results 10/09/22 10/09/22 10/09/22 Range/Units 09:33 09:33 09:34 WBC (4.8-10.8) X10*3/uL RBC (4.20-5.50) X10*6/uL Hgb (12.0-16.0) g/dl Hct (37.0-47.0) % MCV (80.0-98.0) fL MCH (27.0-33.0) pg MCHC (31.0-35.0) g/dl RDW (11.0-16.0) % Plt Count (160-400) X10*3/uL MPV (9.4-12.3) fL Immature Gran % (Auto) (0.0-0.4) % Neut % (Auto) (45-73) % Lymph % (Auto) (20-40) % [place] % (Auto) (2-11) % Eos % (Auto) (0-4) % Baso % (Auto) (0-2) % Lymph # (Auto) (1.2-4.9) X10*3/uL [place] # (Auto) (0.1-1.2) X10*3/uL Eos # (Auto) (0.0-0.4) X10*3/uL Baso # (Auto) (0.0-0.2) X10*3/uL Abs Immat Gran (auto) (0.00-0.03) X10*3/uL Absolute Neuts (auto) (2.0-8.3) x10*3/uL Absolute Nucleated RBC (0.0-0.012) X10*3/uL Nucleated RBC % (auto) (0.0-0.2) /100WBC Sodium (135-145) mmol/L Potassium (3.3-5.1) mmol/L Chloride (96-108) mmol/L Carbon Dioxide (22-29) mmol/L Anion Gap (12-20) BUN (9-16) mg/dL Creatinine (0.5-1.4) mg/dL Estim Creat Clear Calc Estimated GFR Random Glucose (60-115) mg/dL Calcium (8.4-10.2) mg/dL Total Bilirubin (0.0-1.0) mg/dL AST (5-31) U/L ALT (0-31) U/L Alkaline Phosphatase (39-117) U/L Total Protein (6.5-8.0) g/dL Albumin (3.5-5.0) g/dL Urine Color Dark Yellow Urine Appearance Clear Urine pH 7.0 (5.0-9.0) Ur Specific [place] 1.020 (1.005-1.025) Urine Protein Trace (Neg-Trace) mg/dL Urine Glucose (UA) Negative (Negative) mg/dL Urine Ketones Trace (Negative) mg/dL Urine Blood Negative (Negative) Urine Nitrite Negative (Negative) Ur Leukocyte Esterase Trace H (Negative) Urine RBC 0-2 (0-2) /HPF Urine WBC 0-5 (0-5) /HPF Ur Squamous Epith Cells 0-2 (0-2) /HPF Urine Bacteria None Seen (None Seen) Hyaline Casts 0-2 (0-2) /LPF Urine Opiates Screen Not Detected (Not Detect) Urine Fentanyl Screen Not Detected (Not Detect) Ur Barbiturates Screen Not Detected (Not Detect) Ur Phencyclidine Scrn Not Detected (Not Detect) Ur Amphetamines Screen Not Detected (Not Detect) U Benzodiazepines Scrn Not Detected (Not Detect) Urine Cocaine Screen Not Detected (Not Detect) U Marijuana (THC) Screen Not Detected (Not Detect) Ethyl Alcohol mg/dL Influenza Type A (PCR) NEGATIVE (Negative) Influenza Type B (PCR) NEGATIVE (Negative) RSV RNA Qual (PCR) NEGATIVE (Negative) SARS-CoV-2 RNA (RT-PCR) NEGATIVE (Negative) 10/09/22 10/09/22 10/09/22 Range/Units 10:27 10:27 10:27 WBC 10.7 (4.8-10.8) X10*3/uL RBC 5.07 (4.20-5.50) X10*6/uL Hgb 15.7 (12.0-16.0) g/dl Hct 46.3 (37.0-47.0) % MCV 91.3 (80.0-98.0) fL MCH 31.0 (27.0-33.0) pg MCHC 33.9 (31.0-35.0) g/dl RDW 12.1 (11.0-16.0) % Plt Count 285 (160-400) X10*3/uL MPV 9.4 (9.4-12.3) fL Immature Gran % (Auto) 0.9 H (0.0-0.4) % Neut % (Auto) 63.0 (45-73) % Lymph % (Auto) 28.6 (20-40) % [place] % (Auto) 6.6 (2-11) % Eos % (Auto) 0.5 (0-4) % Baso % (Auto) 0.4 (0-2) % Lymph # (Auto) 3.1 (1.2-4.9) X10*3/uL [place] # (Auto) 0.7 (0.1-1.2) X10*3/uL Eos # (Auto) 0.1 (0.0-0.4) X10*3/uL Baso # (Auto) 0.0 (0.0-0.2) X10*3/uL Abs Immat Gran (auto) 0.10 H (0.00-0.03) X10*3/uL Absolute Neuts (auto) 6.7 (2.0-8.3) x10*3/uL Absolute Nucleated RBC 0.000 (0.0-0.012) X10*3/uL Nucleated RBC % (auto) 0.0 (0.0-0.2) /100WBC Sodium 139 (135-145) mmol/L Potassium 4.0 (3.3-5.1) mmol/L Chloride 104 (96-108) mmol/L Carbon Dioxide 27 (22-29) mmol/L Anion Gap 12 (12-20) BUN 12 (9-16) mg/dL Creatinine 0.70 (0.5-1.4) mg/dL Estim Creat Clear Calc 73.7 Estimated GFR > 60 Random Glucose 126 H (60-115) mg/dL Calcium 10.0 (8.4-10.2) mg/dL Total Bilirubin 0.7 (0.0-1.0) mg/dL AST 19 (5-31) U/L ALT 25 (0-31) U/L Alkaline Phosphatase 47 (39-117) U/L Total Protein 7.7 (6.5-8.0) g/dL Albumin 4.7 (3.5-5.0) g/dL Urine Color Urine Appearance Urine pH (5.0-9.0) Ur Specific [place] (1.005-1.025) Urine Protein (Neg-Trace) mg/dL Urine Glucose (UA) (Negative) mg/dL Urine Ketones (Negative) mg/dL Urine Blood (Negative) Urine Nitrite (Negative) Ur Leukocyte Esterase (Negative) Urine RBC (0-2) /HPF Urine WBC (0-5) /HPF Ur Squamous Epith Cells (0-2) /HPF Urine Bacteria (None Seen) Hyaline Casts (0-2) /LPF Urine Opiates Screen (Not Detect) Urine Fentanyl Screen (Not Detect) Ur Barbiturates Screen (Not Detect) Ur Phencyclidine Scrn (Not Detect) Ur Amphetamines Screen (Not Detect) U Benzodiazepines Scrn (Not Detect) Urine Cocaine Screen (Not Detect) U Marijuana (THC) Screen (Not Detect) Ethyl Alcohol < 10 mg/dL Influenza Type A (PCR) (Negative) Influenza Type B (PCR) (Negative) RSV RNA Qual (PCR) (Negative) SARS-CoV-2 RNA (RT-PCR) (Negative) Discharge Plan Discharge Clinical Impression: Depression, Suicidal ideation Patient Disposition: Admitted As Inpatient Interventions: [place]-Suicide Risk Severity Scale Last Done: 10/09/22 09:52
[2022-10-09 09:45] LABS: Appearance Urine Clear; Color Urine Dark Yellow; Glucose Urine UA Negative (Negative); Leukocyte Esterase Urine Trace (Negative); Nitrite Urine Negative (Negative); UMIC TRIGGER UACC YES; Urine Blood Negative (Negative); Urine Ketones Trace mg/dL (Negative); Urine Protein Trace mg/dL (Neg-Trace)
[2022-10-09] MEDS: LORazepam 1 MG TABLET 2 MG PO (09:50)
[2022-10-09 09:52] LABS: Bacteria Urine None Seen (None Seen); Hyaline Casts Urine 0-2 /LPF (0-2); RBC Urine 0-2 /HPF (0-2); Squamous Epithelial Cell Urine 0-2 /HPF (0-2); WBC Urine 0-5 /HPF (0-5)
[2022-10-09 10:03] LABS: Amphetamine Screen Urine Not Detected (Not Detect); Barbiturates, Urine Not Detected (Not Detect); Benzodiazepines Screen Urine Not Detected (Not Detect); Cannabinoid Screen Urine Not Detected (Not Detect); Cocaine Screen Urine Not Detected (Not Detect); Fentanyl, urine Not Detected (Not Detect); Opiate Screen Urine Not Detected (Not Detect); Phencyclidine Screen Urine Not Detected (Not Detect)
[2022-10-09 10:28] LABS: Influenza A PCR NEGATIVE (Negative); Influenza B PCR NEGATIVE (Negative); Resp Syncy Virus RNA Qual PCR NEGATIVE (Negative); SARS COV2 PCR INHOUSE NEGATIVE (Negative)
[2022-10-09 10:32] LABS: MANUAL DIFF FLAG NO
[2022-10-09 10:33] LABS: Basophils Percent Auto 0.4 % (0-2); Eosinophils Absolute Auto 0.1 X10*3/uL (0.0-0.4); Eosinophils Percent Auto 0.5 % (0-4); Hematocrit 46.3 % (37.0-47.0); Hemoglobin 15.7 g/dl (12.0-16.0); Imm Gran Pct Auto 0.9 % (0.0-0.4); Lymphocytes Absolute Auto 3.1 X10*3/uL (1.2-4.9); Lymphocytes Percent Auto 28.6 % (20-40); Mean Corpuscular HGB Conc 33.9 g/dl (31.0-35.0); Mean Corpuscular Volume 91.3 fL (80.0-98.0); Mean Platelet Volume 9.4 fL (9.4-12.3); Monocytes Absolute Auto 0.7 X10*3/uL (0.1-1.2); Monocytes Percent Auto 6.6 % (2-11); Neutrophils Absolute Auto 6.7 x10*3/uL (2.0-8.3); Platelet Count 285 X10*3/uL (160-400); Red Blood Count 5.07 X10*6/uL (4.20-5.50); Red Cell Distribution Width 12.1 % (11.0-16.0); White Blood Count 10.7 X10*3/uL (4.8-10.8)
[2022-10-09 10:51] LABS: Ethanol < 10 mg/dL
[2022-10-09 10:59] LABS: Alanine Aminotransferase 25 U/L (0-31); Albumin Level 4.7 g/dL (3.5-5.0); Alkaline Phosphatase 47 U/L (39-117); Anion Gap 12 (12-20); Aspartate Amino Transferase 19 U/L (5-31); Bilirubin Total 0.7 mg/dL (0.0-1.0); Blood Urea Nitrogen 12 mg/dL (9-16); Carbon Dioxide 27 mmol/L (22-29); Chloride 104 mmol/L (96-108); Creatinine Clr Calc Pharmacy 73.7; Estimated Glomerular Filt Rate > 60; Glucose Random 126 mg/dL (60-115); Sodium 139 mmol/L (135-145); Total Protein 7.7 g/dL (6.5-8.0)
--- NOTE | 2022-10-09 12:07 | PC.NURSE ---
CARE TEAM AT BEDSIDE
--- NOTE | 2022-10-09 13:06 | PM.PSYCN ---
History of Present Illness Chief Complaint: crisis HPI Past Psychiatric History: She has never been admitted into the hospital, she started receiving outpatient services on hears early 30s after an early menopause. She was on Prozac for more than 25 years and eventually she was cross taper to Paxil with for improvement. She had been taking Paxil for the last 10 years but recently it stopped working, even though that she was sad 40 mg a day. She always received outpatient services by a private psychiatrist. [facility] Medical History Depression Diverticulitis Dyslipidemia Essential hypertension History of anxiety Hyperkalemia Osteoarthritis (arthritis due to wear and tear of joints) PAC (premature atrial contraction) Surgical History History of carpal tunnel release History of total right knee replacement Hx of colonoscopy Family History: Her mother used to abuse alcohol and she has 2 siblings with alcohol abuse disorder Social History: . The patient is the oldest of 3 children, her milestones were achieved at expected age and she was raised by her parents. She reported that she was very close to her father but he when she was 17, her mother used to abuse alcohol and she had a difficult relation with her. She was a good student, graduate from high school and then go to college. At age of 19 she got and had her daughter when she was 21, eventually she her 1st and this relation lasted between 6 or 7 years. She remarried and she has been with her for the last 30 years. 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 Trauma History: Denies Diagnostics Vital Signs (24Hr): Vital Signs - 24 hr 10/09/22 09:16 Temperature 98.5 F Pulse Rate 101 H Respiratory Rate 20 Pulse Oximetry 95 Oxygen Delivery Method Room Air BMI result Body Mass Index 24.3 Labs Results: 10/09/22 10:27 10/09/22 10:27 Labs: Laboratory Results - last 48 hr 10/09/22 10/09/22 10/09/22 09:33 09:33 09:34 WBC RBC Hgb Hct MCV MCH MCHC RDW Plt Count MPV Immature Gran % (Auto) Neut % (Auto) Lymph % (Auto) [place] % (Auto) Eos % (Auto) Baso % (Auto) Lymph # (Auto) [place] # (Auto) Eos # (Auto) Baso # (Auto) Abs Immat Gran (auto) Absolute Neuts (auto) Absolute Nucleated RBC Nucleated RBC % (auto) Sodium Potassium Chloride Carbon Dioxide Anion Gap BUN Creatinine Estim Creat Clear Calc Estimated GFR Random Glucose Calcium Total Bilirubin AST ALT Alkaline Phosphatase Total Protein Albumin Urine Color Dark Yellow Urine Appearance Clear Urine pH 7.0 Ur Specific [place] 1.020 Urine Protein Trace Urine Glucose (UA) Negative Urine Ketones Trace Urine Blood Negative Urine Nitrite Negative Ur Leukocyte Esterase Trace H Urine RBC 0-2 Urine WBC 0-5 Ur Squamous Epith Cells 0-2 Urine Bacteria None Seen Hyaline Casts 0-2 Urine Opiates Screen Not Detected Urine Fentanyl Screen Not Detected Ur Barbiturates Screen Not Detected Ur Phencyclidine Scrn Not Detected Ur Amphetamines Screen Not Detected U Benzodiazepines Scrn Not Detected Urine Cocaine Screen Not Detected U Marijuana (THC) Screen Not Detected Ethyl Alcohol Influenza Type A (PCR) NEGATIVE Influenza Type B (PCR) NEGATIVE RSV RNA Qual (PCR) NEGATIVE SARS-CoV-2 RNA (RT-PCR) NEGATIVE 10/09/22 10/09/22 10/09/22 10:27 10:27 10:27 WBC 10.7 RBC 5.07 Hgb 15.7 Hct 46.3 MCV 91.3 MCH 31.0 MCHC 33.9 RDW 12.1 Plt Count 285 MPV 9.4 Immature Gran % (Auto) 0.9 H Neut % (Auto) 63.0 Lymph % (Auto) 28.6 [place] % (Auto) 6.6 Eos % (Auto) 0.5 Baso % (Auto) 0.4 Lymph # (Auto) 3.1 [place] # (Auto) 0.7 Eos # (Auto) 0.1 Baso # (Auto) 0.0 Abs Immat Gran (auto) 0.10 H Absolute Neuts (auto) 6.7 Absolute Nucleated RBC 0.000 Nucleated RBC % (auto) 0.0 Sodium 139 Potassium 4.0 Chloride 104 Carbon Dioxide 27 Anion Gap 12 BUN 12 Creatinine 0.70 Estim Creat Clear Calc 73.7 Estimated GFR > 60 Random Glucose 126 H Calcium 10.0 Total Bilirubin 0.7 AST 19 ALT 25 Alkaline Phosphatase 47 Total Protein 7.7 Albumin 4.7 Urine Color Urine Appearance Urine pH Ur Specific [place] Urine Protein Urine Glucose (UA) Urine Ketones Urine Blood Urine Nitrite Ur Leukocyte Esterase Urine RBC Urine WBC Ur Squamous Epith Cells Urine Bacteria Hyaline Casts Urine Opiates Screen Urine Fentanyl Screen Ur Barbiturates Screen Ur Phencyclidine Scrn Ur Amphetamines Screen U Benzodiazepines Scrn Urine Cocaine Screen U Marijuana (THC) Screen Ethyl Alcohol < 10 Influenza Type A (PCR) Influenza Type B (PCR) RSV RNA Qual (PCR) SARS-CoV-2 RNA (RT-PCR) Mental Status Exam Mental Status Exam Narrative: Appearance: Behavior: Speech: Psychomotor: TP: TC: Mood: anxious Affect: congruent, restless SI:none HI: none Insight/judgment: Memory/cog: alert, oriented x 3. not formally tested. Medications Allergies Allergies Allergy/AdvReac Type Severity Reaction Status Date / Time No Known Allergies Allergy Verified 09/07/22 14:18 [No Known Allergies*] Assessment & Plan Total time managing care of this patient today ____ minutes.
--- NOTE | 2022-10-09 17:45 | HO.PSYADMNOT ---
HPI Date of Service: 10/09/22 Chief Complaint: SI Sources of Information: patient interviewed, chart reviewed and crisis/core team assessment reviewed HPI Subjective Notes: [place] Warning and Conditional Voluntary Narrative: Mrs. Sparks is a 67 year-old woman with hx of MDD, ELIAN with agarophobia who self presented to [facility] reporting increase anxious mood, restlessness, need to pace, poor sleep. Pt was recently discharged from on 09/24 after treatment of anxiety and depression. She was switched from paxil to cymbalta. Per notes and pt report, this switch went well and she did not experience discontinuation symptoms. She was also started on seroquel for sleep and low dose clonazepam. On the unit, pt reports 5-6 days after discharged she started to feel very restless, anxious, needing to pace. She states that although she has suffer with depression and anxiety for several years this feeling was different. She reports depressed mood in the setting of feeling as she will never get better. She denies suicidal or homicidal ideation. She denies hx of VH/AH. Past Psychiatric History: Inpt: 09/2022 for anxiety/depression OP: awaiting new appointment with Dr. Conner Manjarrez through [facility]. Past trial: paxil, prozac, cymbalta, seroquel. She was on Prozac for more than 25 years and eventually she was cross taper to Paxil with for improvement. She had been taking Paxil for the last 10 years. No hx of suicide attempts. Medical Evaluation Reviewed: Yes [facility] Medical History Depression Diverticulitis Dyslipidemia Essential hypertension History of anxiety Hyperkalemia Osteoarthritis (arthritis due to wear and tear of joints) PAC (premature atrial contraction) Surgical History History of carpal tunnel release History of total right knee replacement Hx of colonoscopy Family History: Her mother used to abuse alcohol and she has 2 siblings with alcohol abuse disorder Social History: . The patient is the oldest of 3 children, her milestones were achieved at expected age and she was raised by her parents. She reported that she was very close to her father but he when she was 17, her mother used to abuse alcohol and she had a difficult relation with her. She was a good student, graduate from high school and then go to college. At age of 19 she got and had her daughter when she was 21, eventually she her 1st and this relation lasted between 6 or 7 years. She remarried and she has been with her for the last 30 years. 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 Trauma History: Denies Diagnostics Vital Signs (24Hr): Vital Signs - 24 hr 10/09/22 17:52 10/09/22 20:20 Temperature 97.1 F 98.1 F Pulse Rate 83 74 Respiratory Rate 18 18 Blood Pressure 134/86 119/60 Pulse Oximetry 95 95 Oxygen Delivery Method Room Air Room Air BMI result Body Mass Index 24.3 Labs Results: 10/09/22 10:27 10/09/22 10:27 Labs: Laboratory Results - last 48 hr 10/09/22 10/09/22 10/09/22 09:33 09:33 09:34 WBC RBC Hgb Hct MCV MCH MCHC RDW Plt Count MPV Immature Gran % (Auto) Neut % (Auto) Lymph % (Auto) [place] % (Auto) Eos % (Auto) Baso % (Auto) Lymph # (Auto) [place] # (Auto) Eos # (Auto) Baso # (Auto) Abs Immat Gran (auto) Absolute Neuts (auto) Absolute Nucleated RBC Nucleated RBC % (auto) Sodium Potassium Chloride Carbon Dioxide Anion Gap BUN Creatinine Estim Creat Clear Calc Estimated GFR Random Glucose Calcium Total Bilirubin AST ALT Alkaline Phosphatase Total Protein Albumin Urine Color Dark Yellow Urine Appearance Clear Urine pH 7.0 Ur Specific [place] 1.020 Urine Protein Trace Urine Glucose (UA) Negative Urine Ketones Trace Urine Blood Negative Urine Nitrite Negative Ur Leukocyte Esterase Trace H Urine RBC 0-2 Urine WBC 0-5 Ur Squamous Epith Cells 0-2 Urine Bacteria None Seen Hyaline Casts 0-2 Urine Opiates Screen Not Detected Urine Fentanyl Screen Not Detected Ur Barbiturates Screen Not Detected Ur Phencyclidine Scrn Not Detected Ur Amphetamines Screen Not Detected U Benzodiazepines Scrn Not Detected Urine Cocaine Screen Not Detected U Marijuana (THC) Screen Not Detected Ethyl Alcohol Influenza Type A (PCR) NEGATIVE Influenza Type B (PCR) NEGATIVE RSV RNA Qual (PCR) NEGATIVE SARS-CoV-2 RNA (RT-PCR) NEGATIVE 10/09/22 10/09/22 10/09/22 10:27 10:27 10:27 WBC 10.7 RBC 5.07 Hgb 15.7 Hct 46.3 MCV 91.3 MCH 31.0 MCHC 33.9 RDW 12.1 Plt Count 285 MPV 9.4 Immature Gran % (Auto) 0.9 H Neut % (Auto) 63.0 Lymph % (Auto) 28.6 [place] % (Auto) 6.6 Eos % (Auto) 0.5 Baso % (Auto) 0.4 Lymph # (Auto) 3.1 [place] # (Auto) 0.7 Eos # (Auto) 0.1 Baso # (Auto) 0.0 Abs Immat Gran (auto) 0.10 H Absolute Neuts (auto) 6.7 Absolute Nucleated RBC 0.000 Nucleated RBC % (auto) 0.0 Sodium 139 Potassium 4.0 Chloride 104 Carbon Dioxide 27 Anion Gap 12 BUN 12 Creatinine 0.70 Estim Creat Clear Calc 73.7 Estimated GFR > 60 Random Glucose 126 H Calcium 10.0 Total Bilirubin 0.7 AST 19 ALT 25 Alkaline Phosphatase 47 Total Protein 7.7 Albumin 4.7 Urine Color Urine Appearance Urine pH Ur Specific [place] Urine Protein Urine Glucose (UA) Urine Ketones Urine Blood Urine Nitrite Ur Leukocyte Esterase Urine RBC Urine WBC Ur Squamous Epith Cells Urine Bacteria Hyaline Casts Urine Opiates Screen Urine Fentanyl Screen Ur Barbiturates Screen Ur Phencyclidine Scrn Ur Amphetamines Screen U Benzodiazepines Scrn Urine Cocaine Screen U Marijuana (THC) Screen Ethyl Alcohol < 10 Influenza Type A (PCR) Influenza Type B (PCR) RSV RNA Qual (PCR) SARS-CoV-2 RNA (RT-PCR) Meds/Allergies Allergies Allergies Allergy/AdvReac Type Severity Reaction Status Date / Time No Known Allergies Allergy Verified 09/07/22 14:18 [No Known Allergies*] Mental Status Exam Mental Status Exam Narrative: Appearance: wearing hospital gown, fair hygiene, visibly anxious. Behavior: cooperative Speech: clear, normal rate/rhythm/volume, spontaneous Psychomotor: some restlessness, tapping feet. TP: linear TC: feeling overwhelmed, anxious Mood: anxious Affect: congruent SI: none HI: none VH/AH: none Delusions: none Insight/judgment: fair x 2. Alert, oriented x 3. not formally tested. Assessment & Plan Assessment & Plan (1) Major depressive disorder: Status: Acute Code(s): F32.9 - Major depressive disorder, single episode, unspecified (2) Panic disorder: Status: Acute Code(s): F41.0 - Panic disorder [episodic paroxysmal anxiety] Plan Ms. Sparks is a 67 year old woman with hx of MDD, panic disorder who self presented to [facility] due to increase anxious mood, feeling restless, need to pace. Despite several years of suffering from depression and anxiety, pt reports this feels different. pt noted to be tapping feet as she talks with this web content writer. I suspect she is experiencing akathisia most likely secondary to seroquel. We discussed stopping seroquel, switching clonazepam to ativan, instead of dividing dose of cymbalta doing once a day so it won't affect her sleep. PLAN 1. Admit to M3, CV 15 minutes checks 2. d/c seroquel, start ativan 1mg po BID, may need to adjust dose, until s/s of akathisia resolve 3. cymbalta 60mg po daily instead of 30mg po BID. 4. Obtain collateral information 5. Aftercare planning. Patient educated on: diagnosis and medication risk/benefits Reason for continued inpatient stay Substantial Risk for: harm to self and inability to function Statement Statement: I have reviewed the history and physical and performed a pertinent examination on my patient. No changes have occurred unless specified. If the History and Physical was not performed prior to admission, the Hospitalist's service will be consulted for completing the admission physical. Time Spent With Patient Time: Total time managing care of this patient today ____ minutes.
[2022-10-09 17:52] VITALS: BP 134/86; PULSE 83; RESP 18; TEMP 36.2; O2SAT 95
--- NOTE | 2022-10-09 18:40 | PC.ADMIT ---
Zulma was admitted to the unit at 17:05 from [facility] POD on a CV for treatment of anxiety and SI. Patient was recently discharged from [facility] psych on 09/24/2022. Prior to recent Claudette admission pt reported that she was on paxil for years and ?it put me in a free fall. I thought I could down this whole bottle of paxil, and get a herrera of sleep. I would not actually hurt myself, I was just so anxious I did not know what else to do?. On last admission patient started on cymbalta.? Precipitant of this admission include increase of anxiety and depression, suicidal thoughts, and ?feeling like jumping out of my skin? leading up to ED visit. Reported that she feels the cymbalta is not working for her. Patient is A & O x4. Cooperative with the admission process.? Mood is depressed. The affect is sad / tearful. Patient denies SI/HI/AH/VH at time of admission. Thought process is linear, thoughts are clear and organized. Patient reports a decreased appetite and a recent weight loss of about 12 pounds without trying . Patient reports sleep has been poor lately. Endorsed difficulty falling asleep. Currently rates anxiety and depression as 10/10. Pt has a Hx of HTN. No acute medical complaints. No acute physical complaints. ?I just want to feel normal again?. 15 minute safety checks initiated.
[2022-10-09 20:20] VITALS: BP 119/60; PULSE 74; RESP 18; TEMP 36.7; O2SAT 95
[2022-10-09] MEDS: calcium polycarbophiL TABLET 1 TAB PO (20:24)
[2022-10-09] MEDS: LORazepam 1 MG TABLET PO (20:24)
[2022-10-09] MEDS: hydrOXYzine HCL 25 MG TABLET PO (21:02)
--- NOTE | 2022-10-10 01:31 | PC.NURSE ---
Pt refused the flu shot, stating she had already received it this year.
[2022-10-10 08:15] VITALS: BP 148/83; PULSE 65; RESP 20; TEMP 36.8; O2SAT 96
[2022-10-10] MEDS: Cholecalciferol (Vitamin D3) 25 MCG TABLET 125 MCG PO (09:17)
[2022-10-10] MEDS: Pravastatin Sodium 20 MG TABLET PO (09:19)
[2022-10-10] MEDS: LORazepam 1 MG TABLET PO ×2 (09:19→20:29)
[2022-10-10] MEDS: amLODIPine Besylate 5 MG TABLET PO (09:20)
[2022-10-10] MEDS: Multivitamin TABLET 1 TAB PO (09:20)
[2022-10-10] MEDS: calcium polycarbophiL TABLET 1 TAB PO ×2 (09:20→20:29)
[2022-10-10] MEDS: DULoxetine HCl 60 MG CAPSULE.DR PO (09:20)
--- NOTE | 2022-10-10 12:55 | HO.PSYCHPN ---
Subjective Subjective Date of Service: 10/10/22 Reason For Visit: SI Interim History: Discussed with team, pt is visible in milieu, pleasant upon engagement, however labile and tearful. I spoke with pt, she is tearful, recently discharged from [facility] and says everything was fine for a few days, however she started feeling anxious again, I started waking up super anxious and sad, felt overwhelmed and like something's not right. She came to the hospital because she doesnt see her psychiatrist until october 20 and her BP was elevated. Denies past issues with HTN prior to starting cymbalta. Says they took me off the seroquel last night, was able to sleep with ativan. She was overall feeling worse on cymbalta, asking to a change. Had past benefit on prozac and paxil, however both lost efficacy over years of use. Mental Status Exam Mental Status Exam Narrative: Appearance: wearing hospital gown, fair hygiene, visibly anxious. Behavior: cooperative Speech: clear, normal rate/rhythm/volume, spontaneous Psychomotor: some restlessness, tapping feet. TP: linear TC: feeling overwhelmed, anxious Mood: anxious Affect: congruent SI: none HI: none VH/AH: none Delusions: none Insight/judgment: fair x 2. Alert, oriented x 3. not formally tested. Diagnostics Vital Signs (24Hr): Vital Signs - 24 hr 10/09/22 17:52 10/09/22 20:20 10/10/22 08:15 Temperature 97.1 F 98.1 F 98.2 F Pulse Rate 83 74 65 Respiratory Rate 18 18 20 Blood Pressure 134/86 119/60 148/83 H Pulse Oximetry 95 95 96 Oxygen Delivery Method Room Air Room Air Room Air BMI result Body Mass Index 24.3 Labs Results: 10/09/22 10:27 10/09/22 10:27 Labs: Laboratory Results - last 48 hr 10/09/22 10/09/22 10/09/22 09:33 09:33 09:34 WBC RBC Hgb Hct MCV MCH MCHC RDW Plt Count MPV Immature Gran % (Auto) Neut % (Auto) Lymph % (Auto) [place] % (Auto) Eos % (Auto) Baso % (Auto) Lymph # (Auto) [place] # (Auto) Eos # (Auto) Baso # (Auto) Abs Immat Gran (auto) Absolute Neuts (auto) Absolute Nucleated RBC Nucleated RBC % (auto) Sodium Potassium Chloride Carbon Dioxide Anion Gap BUN Creatinine Estim Creat Clear Calc Estimated GFR Random Glucose Calcium Total Bilirubin AST ALT Alkaline Phosphatase Total Protein Albumin Urine Color Dark Yellow Urine Appearance Clear Urine pH 7.0 Ur Specific [place] 1.020 Urine Protein Trace Urine Glucose (UA) Negative Urine Ketones Trace Urine Blood Negative Urine Nitrite Negative Ur Leukocyte Esterase Trace H Urine RBC 0-2 Urine WBC 0-5 Ur Squamous Epith Cells 0-2 Urine Bacteria None Seen Hyaline Casts 0-2 Urine Opiates Screen Not Detected Urine Fentanyl Screen Not Detected Ur Barbiturates Screen Not Detected Ur Phencyclidine Scrn Not Detected Ur Amphetamines Screen Not Detected U Benzodiazepines Scrn Not Detected Urine Cocaine Screen Not Detected U Marijuana (THC) Screen Not Detected Ethyl Alcohol Influenza Type A (PCR) NEGATIVE Influenza Type B (PCR) NEGATIVE RSV RNA Qual (PCR) NEGATIVE SARS-CoV-2 RNA (RT-PCR) NEGATIVE 10/09/22 10/09/22 10/09/22 10:27 10:27 10:27 WBC 10.7 RBC 5.07 Hgb 15.7 Hct 46.3 MCV 91.3 MCH 31.0 MCHC 33.9 RDW 12.1 Plt Count 285 MPV 9.4 Immature Gran % (Auto) 0.9 H Neut % (Auto) 63.0 Lymph % (Auto) 28.6 [place] % (Auto) 6.6 Eos % (Auto) 0.5 Baso % (Auto) 0.4 Lymph # (Auto) 3.1 [place] # (Auto) 0.7 Eos # (Auto) 0.1 Baso # (Auto) 0.0 Abs Immat Gran (auto) 0.10 H Absolute Neuts (auto) 6.7 Absolute Nucleated RBC 0.000 Nucleated RBC % (auto) 0.0 Sodium 139 Potassium 4.0 Chloride 104 Carbon Dioxide 27 Anion Gap 12 BUN 12 Creatinine 0.70 Estim Creat Clear Calc 73.7 Estimated GFR > 60 Random Glucose 126 H Calcium 10.0 Total Bilirubin 0.7 AST 19 ALT 25 Alkaline Phosphatase 47 Total Protein 7.7 Albumin 4.7 Urine Color Urine Appearance Urine pH Ur Specific [place] Urine Protein Urine Glucose (UA) Urine Ketones Urine Blood Urine Nitrite Ur Leukocyte Esterase Urine RBC Urine WBC Ur Squamous Epith Cells Urine Bacteria Hyaline Casts Urine Opiates Screen Urine Fentanyl Screen Ur Barbiturates Screen Ur Phencyclidine Scrn Ur Amphetamines Screen U Benzodiazepines Scrn Urine Cocaine Screen U Marijuana (THC) Screen Ethyl Alcohol < 10 Influenza Type A (PCR) Influenza Type B (PCR) RSV RNA Qual (PCR) SARS-CoV-2 RNA (RT-PCR) Medications Medications Current Medications Acetaminophen (Acetaminophen 325 Mg Tablet) 650 mg PO Q6H PRN PRN Reason: Headache/Pain Mild Scale (1-3) Al Hydroxide/Mg Hydroxide (Magnesium Hydrox/Alum Hydrox 30 Ml Oral.Susp) 30 ml PO Q6H PRN PRN Reason: Heartburn/Nausea Amlodipine Besylate (Amlodipine Besylate 5 Mg Tablet) 5 mg PO DAILY [facility]; Protocol Last Admin: 10/10/22 09:20 Dose: 5 mg Calcium Carbonate (Calcium Carbonate 500 Mg Tablet) 1,000 mg PO DAILY [facility] Last Admin: 10/10/22 09:22 Dose: 1,000 mg Calcium Polycarbophil (Calcium Polycarbophil Tablet) 1 tab PO BID [facility] Last Admin: 10/10/22 09:20 Dose: 1 tab Duloxetine HCl (Duloxetine Hcl 60 Mg Capsule.Dr) 60 mg PO DAILY [facility] Last Admin: 10/10/22 09:20 Dose: 60 mg Hydroxyzine HCl (Hydroxyzine Hcl 25 Mg Tablet) 25 mg PO Q6H PRN PRN Reason: Anxiety Last Admin: 10/09/22 21:02 Dose: 25 mg Hydroxyzine HCl (Hydroxyzine Hcl 25 Mg Tablet) 25 mg PO Q6H PRN PRN Reason: Anxiety Lorazepam (Lorazepam 1 Mg Tablet) 1 mg PO BID [facility] Last Admin: 10/10/22 09:19 Dose: 1 mg Magnesium Hydroxide (Milk Of Magnesia 30 Ml Oral.Susp) 30 ml PO DAILY PRN PRN Reason: Constipation Multivitamins/Vitamin C (Multivitamin Tablet) 1 tab PO DAILY [facility] Last Admin: 10/10/22 09:20 Dose: 1 tab Pravastatin Sodium (Pravastatin Sodium 20 Mg Tablet) 20 mg PO DAILY [facility] Last Admin: 10/10/22 09:19 Dose: 20 mg Trazodone HCl (Trazodone Hcl 50 Mg Tablet) 50 mg PO BEDTIME PRN PRN Reason: Insomnia Vitamin D (Cholecalciferol (Vitamin D3) 25 Mcg Tablet) 125 mcg PO DAILY [facility] Last Admin: 10/10/22 09:17 Dose: 125 mcg Allergies Allergies Allergy/AdvReac Type Severity Reaction Status Date / Time No Known Allergies Allergy Verified 09/07/22 14:18 [No Known Allergies*] Assessment & Plan Assessment & Plan (1) Major depressive disorder: Status: Acute Code(s): F32.9 - Major depressive disorder, single episode, unspecified (2) Panic disorder: Status: Acute Code(s): F41.0 - Panic disorder [episodic paroxysmal anxiety] Plan Ms. Sparks is a 67 year old woman with hx of MDD, panic disorder who self presented to [facility] due to increase anxious mood, feeling restless, need to pace. Despite several years of suffering from depression and anxiety, pt reports this feels different. pt noted to be tapping feet as she talks with this marketing underwriter. I suspect she is experiencing akathisia most likely secondary to seroquel. We discussed stopping seroquel, switching clonazepam to ativan, instead of dividing dose of cymbalta doing once a day so it won't affect her sleep. PLAN 1. Admit to M3, CV 15 minutes checks 2. d/c seroquel, start ativan 1mg po BID, may need to adjust dose, until s/s of akathisia resolve 3. cymbalta 60mg po daily instead of 30mg po BID. 4. Obtain collateral information 5. Aftercare planning. 10/10: D/C cymbalta and start lexapro 20 mg QD for depression, anxiety. Decrease ativan to 1 mg HS and 0.5 mg BID PRN, as she does not want scheduled morning dose of 1 mg, did not feel she needed it. Patient educated on: medication risk/benefits and therapeutic strategies Reason for contiued inpatient stay Substantial Risk for: med/psych decompensation Time Spent With Patient Time: Total time managing care of this patient today ____ minutes.
[2022-10-10 19:20] VITALS: BP 141/85; PULSE 72; RESP 18; TEMP 36.7; O2SAT 96
[2022-10-11 08:10] VITALS: BP 145/83; PULSE 67; RESP 20; TEMP 37.2; O2SAT 96
[2022-10-11] MEDS: Cholecalciferol (Vitamin D3) 25 MCG TABLET 125 MCG PO (08:18)
[2022-10-11] MEDS: Escitalopram Oxalate 20 MG TABLET PO (08:20)
[2022-10-11] MEDS: amLODIPine Besylate 5 MG TABLET PO (08:21)
[2022-10-11] MEDS: Pravastatin Sodium 20 MG TABLET PO (08:21)
[2022-10-11] MEDS: calcium polycarbophiL TABLET 1 TAB PO ×2 (08:22→21:16)
[2022-10-11] MEDS: Multivitamin TABLET 1 TAB PO (08:22)
--- NOTE | 2022-10-11 10:58 | HO.PSYCHPN ---
Subjective Subjective Date of Service: 10/11/22 Reason For Visit: SI Interim History: Discussed with team. Spoke with pt, says she slept okay, but felt anxious when she woke up. Rates her depression as a 5/10, sometimes i get sad, somewhat less tearful today. Feels safe. Mental Status Exam Mental Status Exam Narrative: Appearance: wearing hospital gown, fair hygiene, visibly anxious. Behavior: cooperative Speech: clear, normal rate/rhythm/volume, spontaneous Psychomotor: some restlessness, tapping feet. TP: linear TC: feeling overwhelmed, anxious Mood: anxious Affect: congruent SI: none HI: none VH/AH: none Delusions: none Insight/judgment: fair x 2. Alert, oriented x 3. not formally tested. Diagnostics Vital Signs (24Hr): Vital Signs - 24 hr 10/10/22 19:20 10/11/22 08:10 Temperature 98.1 F 99.0 F Pulse Rate 72 67 Respiratory Rate 18 20 Blood Pressure 141/85 H 145/83 H Pulse Oximetry 96 96 Oxygen Delivery Method Room Air Room Air BMI result Body Mass Index 24.3 Labs Results: 10/09/22 10:27 10/09/22 10:27 Labs: Laboratory Results - last 48 hr 10/09/22 10:27 Sodium 139 Potassium 4.0 Chloride 104 Carbon Dioxide 27 Anion Gap 12 BUN 12 Creatinine 0.70 Estim Creat Clear Calc 73.7 Estimated GFR > 60 Random Glucose 126 H Calcium 10.0 Total Bilirubin 0.7 AST 19 ALT 25 Alkaline Phosphatase 47 Total Protein 7.7 Albumin 4.7 Medications Medications Current Medications Acetaminophen (Acetaminophen 325 Mg Tablet) 650 mg PO Q6H PRN PRN Reason: Headache/Pain Mild Scale (1-3) Al Hydroxide/Mg Hydroxide (Magnesium Hydrox/Alum Hydrox 30 Ml Oral.Susp) 30 ml PO Q6H PRN PRN Reason: Heartburn/Nausea Amlodipine Besylate (Amlodipine Besylate 5 Mg Tablet) 5 mg PO DAILY [facility]; Protocol Last Admin: 10/11/22 08:21 Dose: 5 mg Calcium Carbonate (Calcium Carbonate 500 Mg Tablet) 1,000 mg PO DAILY [facility] Last Admin: 10/11/22 08:20 Dose: 1,000 mg Calcium Polycarbophil (Calcium Polycarbophil Tablet) 1 tab PO BID [facility] Last Admin: 10/11/22 08:22 Dose: 1 tab Escitalopram Oxalate (Escitalopram Oxalate 20 Mg Tablet) 20 mg PO DAILY [facility] Last Admin: 10/11/22 08:20 Dose: 20 mg Hydroxyzine HCl (Hydroxyzine Hcl 25 Mg Tablet) 25 mg PO Q6H PRN PRN Reason: Anxiety Last Admin: 10/09/22 21:02 Dose: 25 mg Hydroxyzine HCl (Hydroxyzine Hcl 25 Mg Tablet) 25 mg PO Q6H PRN PRN Reason: Anxiety Lorazepam (Lorazepam 1 Mg Tablet) 1 mg PO BEDTIME [facility] Last Admin: 10/10/22 20:29 Dose: 1 mg Lorazepam (Lorazepam 0.5 Mg Tablet) 0.5 mg PO Q8H PRN PRN Reason: anxiety Magnesium Hydroxide (Milk Of Magnesia 30 Ml Oral.Susp) 30 ml PO DAILY PRN PRN Reason: Constipation Multivitamins/Vitamin C (Multivitamin Tablet) 1 tab PO DAILY [facility] Last Admin: 10/11/22 08:22 Dose: 1 tab Pravastatin Sodium (Pravastatin Sodium 20 Mg Tablet) 20 mg PO DAILY [facility] Last Admin: 10/11/22 08:21 Dose: 20 mg Trazodone HCl (Trazodone Hcl 50 Mg Tablet) 50 mg PO BEDTIME PRN PRN Reason: Insomnia Vitamin D (Cholecalciferol (Vitamin D3) 25 Mcg Tablet) 125 mcg PO DAILY [facility] Last Admin: 10/11/22 08:18 Dose: 125 mcg Allergies Allergies Allergy/AdvReac Type Severity Reaction Status Date / Time No Known Allergies Allergy Verified 09/07/22 14:18 [No Known Allergies*] Assessment & Plan Assessment & Plan (1) Major depressive disorder: Status: Acute Code(s): F32.9 - Major depressive disorder, single episode, unspecified (2) Panic disorder: Status: Acute Code(s): F41.0 - Panic disorder [episodic paroxysmal anxiety] Plan Ms. Sparks is a 67 year old woman with hx of MDD, panic disorder who self presented to [facility] due to increase anxious mood, feeling restless, need to pace. Despite several years of suffering from depression and anxiety, pt reports this feels different. pt noted to be tapping feet as she talks with this automotive service writer. I suspect she is experiencing akathisia most likely secondary to seroquel. We discussed stopping seroquel, switching clonazepam to ativan, instead of dividing dose of cymbalta doing once a day so it won't affect her sleep. PLAN 1. Admit to M3, CV 15 minutes checks 2. d/c seroquel, start ativan 1mg po BID, may need to adjust dose, until s/s of akathisia resolve 3. cymbalta 60mg po daily instead of 30mg po BID. 4. Obtain collateral information 5. Aftercare planning. 10/10: D/C cymbalta and start lexapro 20 mg QD for depression, anxiety. Decrease ativan to 1 mg HS and 0.5 mg BID PRN, as she does not want scheduled morning dose of 1 mg, did not feel she needed it. 10/11: continue lexapro trial Patient educated on: medication risk/benefits and therapeutic strategies Reason for contiued inpatient stay Substantial Risk for: med/psych decompensation Time Spent With Patient Time: Total time managing care of this patient today ____ minutes.
[2022-10-11] MEDS: hydrOXYzine HCL 25 MG TABLET PO (17:31)
[2022-10-11 19:28] VITALS: BP 130/74; PULSE 71; RESP 16; TEMP 36.6; O2SAT 95
[2022-10-11] MEDS: LORazepam 1 MG TABLET PO (21:16)
[2022-10-11] MEDS: LORazepam 0.5 MG TABLET PO (22:14)
[2022-10-12 08:15] VITALS: BP 153/77; PULSE 73; RESP 16; TEMP 37.2; O2SAT 95
[2022-10-12] MEDS: Pravastatin Sodium 20 MG TABLET PO (08:16)
[2022-10-12] MEDS: calcium polycarbophiL TABLET 1 TAB PO (08:16)
[2022-10-12] MEDS: amLODIPine Besylate 5 MG TABLET PO (08:17)
[2022-10-12] MEDS: Multivitamin TABLET 1 TAB PO (08:17)
[2022-10-12] MEDS: Cholecalciferol (Vitamin D3) 25 MCG TABLET 125 MCG PO (08:18)
[2022-10-12] MEDS: Escitalopram Oxalate 20 MG TABLET PO (08:18)
--- NOTE | 2022-10-12 13:17 | HO.PSYCHPN ---
Subjective Subjective Date of Service: 10/11/22 Reason For Visit: SI Subjective Notes: [place] Warning and Conditional Voluntary Healthcare Proxy: No Guardianship: No Medical Problems Affecting Mental Status: No Interim History: Discussed with team. Spoke with pt, says she was feeling itchy last night, but feels a little bit today, lotion helps, no visible rash. Says this made anxious, as she worried it was a rxn to lexapro, feels reassured she can continue the med trial. Otherwise, today she is feeling better with anxiety. She utilized 0.5 mg ativan PRN. Hoping to go home . Mental Status Exam Mental Status Exam Narrative: Appearance: wearing hospital gown, fair hygiene, visibly anxious. Behavior: cooperative Speech: clear, normal rate/rhythm/volume, spontaneous Psychomotor: some restlessness, tapping feet. TP: linear TC: feeling overwhelmed, anxious Mood: anxious Affect: congruent SI: none HI: none VH/AH: none Delusions: none Insight/judgment: fair x 2. Alert, oriented x 3. not formally tested. Diagnostics Vital Signs (24Hr): Vital Signs - 24 hr 10/11/22 19:28 10/12/22 08:15 Temperature 97.9 F 98.9 F Pulse Rate 71 73 Respiratory Rate 16 16 Blood Pressure 130/74 153/77 H Pulse Oximetry 95 95 Oxygen Delivery Method Room Air Room Air BMI result Body Mass Index 24.3 Labs Results: 10/09/22 10:27 10/09/22 10:27 Medications Medications Current Medications Acetaminophen (Acetaminophen 325 Mg Tablet) 650 mg PO Q6H PRN PRN Reason: Headache/Pain Mild Scale (1-3) Al Hydroxide/Mg Hydroxide (Magnesium Hydrox/Alum Hydrox 30 Ml Oral.Susp) 30 ml PO Q6H PRN PRN Reason: Heartburn/Nausea Amlodipine Besylate (Amlodipine Besylate 5 Mg Tablet) 5 mg PO DAILY [facility]; Protocol Last Admin: 10/12/22 08:17 Dose: 5 mg Calcium Carbonate (Calcium Carbonate 500 Mg Tablet) 1,000 mg PO DAILY [facility] Last Admin: 10/12/22 08:17 Dose: 1,000 mg Calcium Polycarbophil (Calcium Polycarbophil Tablet) 1 tab PO BID [facility] Last Admin: 10/12/22 08:16 Dose: 1 tab Escitalopram Oxalate (Escitalopram Oxalate 20 Mg Tablet) 20 mg PO DAILY [facility] Last Admin: 10/12/22 08:18 Dose: 20 mg Hydroxyzine HCl (Hydroxyzine Hcl 25 Mg Tablet) 25 mg PO Q6H PRN PRN Reason: Anxiety Last Admin: 10/11/22 17:31 Dose: 25 mg Lorazepam (Lorazepam 1 Mg Tablet) 1 mg PO BEDTIME [facility] Last Admin: 10/11/22 21:16 Dose: 1 mg Lorazepam (Lorazepam 0.5 Mg Tablet) 0.5 mg PO Q8H PRN PRN Reason: anxiety Last Admin: 10/11/22 22:14 Dose: 0.5 mg Magnesium Hydroxide (Milk Of Magnesia 30 Ml Oral.Susp) 30 ml PO DAILY PRN PRN Reason: Constipation Multivitamins/Vitamin C (Multivitamin Tablet) 1 tab PO DAILY [facility] Last Admin: 10/12/22 08:17 Dose: 1 tab Pravastatin Sodium (Pravastatin Sodium 20 Mg Tablet) 20 mg PO DAILY [facility] Last Admin: 10/12/22 08:16 Dose: 20 mg Trazodone HCl (Trazodone Hcl 50 Mg Tablet) 50 mg PO BEDTIME PRN PRN Reason: Insomnia Vitamin D (Cholecalciferol (Vitamin D3) 25 Mcg Tablet) 125 mcg PO DAILY [facility] Last Admin: 10/12/22 08:18 Dose: 125 mcg Allergies Allergies Allergy/AdvReac Type Severity Reaction Status Date / Time No Known Allergies Allergy Verified 09/07/22 14:18 [No Known Allergies*] Assessment & Plan Assessment & Plan (1) Major depressive disorder: Status: Acute Code(s): F32.9 - Major depressive disorder, single episode, unspecified (2) Panic disorder: Status: Acute Code(s): F41.0 - Panic disorder [episodic paroxysmal anxiety] Plan Ms. Sparks is a 67 year old woman with hx of MDD, panic disorder who [place] [facility] [place] to increase anxious mood, feeling restless, need to pace. Despite several years of suffering from depression and anxiety, pt reports this feels different. pt noted to be tapping feet as she talks with this web content writer. I suspect she is experiencing akathisia most likely secondary to seroquel. We discussed stopping seroquel, switching clonazepam to ativan, instead of dividing dose of cymbalta doing once a day so it won't affect her sleep. PLAN 1. Admit to M3, CV 15 minutes checks 2. d/c seroquel, start ativan 1mg po BID, may need to adjust dose, until s/s of akathisia resolve 3. cymbalta 60mg po daily instead of 30mg po BID. 4. Obtain collateral information 5. Aftercare planning. 10/10: D/C cymbalta and start lexapro 20 mg QD for depression, anxiety. Decrease ativan to 1 mg HS and 0.5 mg BID PRN, as she does not want scheduled morning dose of 1 mg, did not feel she needed it. 10/11: continue lexapro trial 10/12: add PRN benadryl for itching Patient educated on: medication risk/benefits and therapeutic strategies Reason for contiued inpatient stay Substantial Risk for: med/psych decompensation Time Spent With Patient Time: Total time managing care of this patient today ____ minutes.
--- NOTE | 2022-10-12 16:21 | MHC.CLN ---
NUTRITION CONSULT FOR WEIGHT LOSS. PATIENT REPORTS THAT SHE IS FEELING MUCH BETTER WITH MEDICATION CHANGE TO LEXAPRO. REPORTS THAT EATING BETTER AND DOES NOT WANT SUPPLEMENT. NO ADDITIONAL NUTRITION INTERVENTIONS AT THIS TIME.
[2022-10-12] MEDS: hydrOXYzine HCL 25 MG TABLET PO (18:09)
[2022-10-12] MEDS: LORazepam 0.5 MG TABLET PO (18:47)
[2022-10-12 23:05] VITALS: RESP 16
--- NOTE | 2022-10-13 02:43 | PC.NURSE ---
Pt received prn hydroxyzine 25 mg at 1809 and prn ativan 0.5 mg at 1847. Pt appeared to be asleep shortly after, and slept the remainder of the evening/night. Pt was not woken for HS meds, which included fibercon and ativan 1 mg.
[2022-10-13 08:29] VITALS: BP 170/79; PULSE 63; RESP 16; TEMP 37.1; O2SAT 98
[2022-10-13] MEDS: Cholecalciferol (Vitamin D3) 25 MCG TABLET 125 MCG PO (08:29)
[2022-10-13] MEDS: Escitalopram Oxalate 20 MG TABLET PO (08:29)
[2022-10-13] MEDS: Pravastatin Sodium 20 MG TABLET PO (08:30)
[2022-10-13] MEDS: amLODIPine Besylate 5 MG TABLET PO (08:31)
[2022-10-13] MEDS: calcium polycarbophiL TABLET 1 TAB PO ×2 (08:31→20:01)
[2022-10-13] MEDS: Multivitamin TABLET 1 TAB PO (08:31)
[2022-10-13] MEDS: LORazepam 0.5 MG TABLET PO (15:05)
[2022-10-13] MEDS: hydrOXYzine HCL 25 MG TABLET PO (18:40)
[2022-10-13 19:59] VITALS: BP 153/76; PULSE 76; TEMP 36.8; O2SAT 95
[2022-10-13] MEDS: LORazepam 1 MG TABLET PO (20:01)
--- NOTE | 2022-10-13 21:53 | HO.PSYCHPN ---
Subjective Subjective Date of Service: 10/13/22 Reason For Visit: SI Subjective Notes: Conditional Voluntary Interim History: pt feeling better on lexapro needs much reassurance Mental Status Exam Mental Status Exam Narrative: Appearance: casually dressed Behavior: cooperative Speech: clear, normal rate/rhythm/volume, spontaneous Psychomotor: some restlessness, tapping feet. TP: linear TC: regarding medications Mood: anxious Affect: congruent SI: none HI: none VH/AH: none Delusions: none Insight/judgment: fair x 2. Alert, oriented x 3. not formally tested. Diagnostics Vital Signs (24Hr): Vital Signs - 24 hr 10/12/22 23:05 10/13/22 08:29 10/13/22 19:59 Temperature 98.7 F 98.3 F Pulse Rate 63 76 Respiratory Rate 16 16 Blood Pressure 170/79 H 153/76 H Pulse Oximetry 98 95 Oxygen Delivery Method Room Air Room Air BMI result Body Mass Index 24.3 Labs Results: 10/09/22 10:27 10/09/22 10:27 Medications Medications Current Medications Acetaminophen (Acetaminophen 325 Mg Tablet) 650 mg PO Q6H PRN PRN Reason: Headache/Pain Mild Scale (1-3) Al Hydroxide/Mg Hydroxide (Magnesium Hydrox/Alum Hydrox 30 Ml Oral.Susp) 30 ml PO Q6H PRN PRN Reason: Heartburn/Nausea Amlodipine Besylate (Amlodipine Besylate 5 Mg Tablet) 5 mg PO DAILY [facility]; Protocol Last Admin: 10/13/22 08:31 Dose: 5 mg Calcium Carbonate (Calcium Carbonate 500 Mg Tablet) 1,000 mg PO DAILY [facility] Last Admin: 10/13/22 08:31 Dose: 1,000 mg Calcium Polycarbophil (Calcium Polycarbophil Tablet) 1 tab PO BID [facility] Last Admin: 10/13/22 20:01 Dose: 1 tab Diphenhydramine HCl (Diphenhydramine Hcl 25 Mg Capsule) 25 mg PO BEDTIME PRN PRN Reason: itching Escitalopram Oxalate (Escitalopram Oxalate 20 Mg Tablet) 20 mg PO DAILY [facility] Last Admin: 10/13/22 08:29 Dose: 20 mg Hydroxyzine HCl (Hydroxyzine Hcl 25 Mg Tablet) 25 mg PO Q6H PRN PRN Reason: Anxiety Last Admin: 10/13/22 18:40 Dose: 25 mg Lorazepam (Lorazepam 1 Mg Tablet) 1 mg PO BEDTIME [facility] Last Admin: 10/13/22 20:01 Dose: 1 mg Lorazepam (Lorazepam 0.5 Mg Tablet) 0.5 mg PO Q8H PRN PRN Reason: anxiety Last Admin: 10/13/22 15:05 Dose: 0.5 mg Magnesium Hydroxide (Milk Of Magnesia 30 Ml Oral.Susp) 30 ml PO DAILY PRN PRN Reason: Constipation Multivitamins/Vitamin C (Multivitamin Tablet) 1 tab PO DAILY [facility] Last Admin: 10/13/22 08:31 Dose: 1 tab Pravastatin Sodium (Pravastatin Sodium 20 Mg Tablet) 20 mg PO DAILY [facility] Last Admin: 10/13/22 08:30 Dose: 20 mg Trazodone HCl (Trazodone Hcl 50 Mg Tablet) 50 mg PO BEDTIME PRN PRN Reason: Insomnia Vitamin D (Cholecalciferol (Vitamin D3) 25 Mcg Tablet) 125 mcg PO DAILY [facility] Last Admin: 10/13/22 08:29 Dose: 125 mcg Allergies Allergies Allergy/AdvReac Type Severity Reaction Status Date / Time No Known Allergies Allergy Verified 09/07/22 14:18 [No Known Allergies*] Assessment & Plan Assessment & Plan (1) Major depressive disorder: Status: Acute Code(s): F32.9 - Major depressive disorder, single episode, unspecified (2) Panic disorder: Status: Acute Code(s): F41.0 - Panic disorder [episodic paroxysmal anxiety] Plan Ms. Sparks is a 67 year old woman with hx of MDD, panic disorder who [place] [facility] [place] to increase anxious mood, feeling restless, need to pace. Despite several years of suffering from depression and anxiety, pt reports this feels different. pt noted to be tapping feet as she talks with this typewriter ribbon winder. I suspect she is experiencing akathisia most likely secondary to seroquel. We discussed stopping seroquel, switching clonazepam to ativan, instead of dividing dose of cymbalta doing once a day so it won't affect her sleep. PLAN 1. Admit to M3, CV 15 minutes checks 2. d/c seroquel, start ativan 1mg po BID, may need to adjust dose, until s/s of akathisia resolve 3. cymbalta 60mg po daily instead of 30mg po BID. 4. Obtain collateral information 5. Aftercare planning. 10/13/22 cont plan of care monitor for med s/e Reason for contiued inpatient stay Substantial Risk for: inability to function, rapid decompensation and med/psych decompensation Time Spent With Patient Time: Total time managing care of this patient today ____ minutes.
[2022-10-14 08:24] VITALS: BP 139/71; PULSE 68; RESP 18; TEMP 36.5; O2SAT 95
[2022-10-14] MEDS: Escitalopram Oxalate 20 MG TABLET PO (08:25)
[2022-10-14] MEDS: Cholecalciferol (Vitamin D3) 25 MCG TABLET 125 MCG PO (08:25)
[2022-10-14] MEDS: amLODIPine Besylate 5 MG TABLET PO (08:25)
[2022-10-14] MEDS: calcium polycarbophiL TABLET 1 TAB PO ×2 (08:25→20:16)
[2022-10-14] MEDS: Pravastatin Sodium 20 MG TABLET PO (08:26)
[2022-10-14] MEDS: Multivitamin TABLET 1 TAB PO (08:26)
--- NOTE | 2022-10-14 09:35 | P.PNPSI_ITS ---
Subjective Subjective Date of Service: 10/14/22 Reason For Visit: SI Subjective Notes: Conditional Voluntary Diagnostics Vital Signs (24Hr): Vital Signs - 24 hr 10/13/22 19:59 10/14/22 08:24 Temperature 98.3 F 97.7 F Pulse Rate 76 68 Respiratory Rate 18 Blood Pressure 153/76 H 139/71 Pulse Oximetry 95 95 Oxygen Delivery Method Room Air Room Air BMI result Body Mass Index 24.3 Labs Results: 10/09/22 10:27 10/09/22 10:27 Medications Medications Current Medications Acetaminophen (Acetaminophen 325 Mg Tablet) 650 mg PO Q6H PRN PRN Reason: Headache/Pain Mild Scale (1-3) Al Hydroxide/Mg Hydroxide (Magnesium Hydrox/Alum Hydrox 30 Ml Oral.Susp) 30 ml PO Q6H PRN PRN Reason: Heartburn/Nausea Amlodipine Besylate (Amlodipine Besylate 5 Mg Tablet) 5 mg PO DAILY [facility]; Protocol Last Admin: 10/14/22 08:25 Dose: 5 mg Calcium Carbonate (Calcium Carbonate 500 Mg Tablet) 1,000 mg PO DAILY [facility] Last Admin: 10/14/22 08:26 Dose: 1,000 mg Calcium Polycarbophil (Calcium Polycarbophil Tablet) 1 tab PO BID [facility] Last Admin: 10/14/22 08:25 Dose: 1 tab Diphenhydramine HCl (Diphenhydramine Hcl 25 Mg Capsule) 25 mg PO BEDTIME PRN PRN Reason: itching Escitalopram Oxalate (Escitalopram Oxalate 20 Mg Tablet) 20 mg PO DAILY [facility] Last Admin: 10/14/22 08:25 Dose: 20 mg Hydroxyzine HCl (Hydroxyzine Hcl 25 Mg Tablet) 25 mg PO Q6H PRN PRN Reason: Anxiety Last Admin: 10/13/22 18:40 Dose: 25 mg Lorazepam (Lorazepam 1 Mg Tablet) 1 mg PO BEDTIME [facility] Last Admin: 10/13/22 20:01 Dose: 1 mg Lorazepam (Lorazepam 0.5 Mg Tablet) 0.5 mg PO Q8H PRN PRN Reason: anxiety Last Admin: 10/13/22 15:05 Dose: 0.5 mg Magnesium Hydroxide (Milk Of Magnesia 30 Ml Oral.Susp) 30 ml PO DAILY PRN PRN Reason: Constipation Multivitamins/Vitamin C (Multivitamin Tablet) 1 tab PO DAILY [facility] Last Admin: 10/14/22 08:26 Dose: 1 tab Pravastatin Sodium (Pravastatin Sodium 20 Mg Tablet) 20 mg PO DAILY [facility] Last Admin: 10/14/22 08:26 Dose: 20 mg Trazodone HCl (Trazodone Hcl 50 Mg Tablet) 50 mg PO BEDTIME PRN PRN Reason: Insomnia Vitamin D (Cholecalciferol (Vitamin D3) 25 Mcg Tablet) 125 mcg PO DAILY [facility] Last Admin: 10/14/22 08:25 Dose: 125 mcg Allergies Allergies Allergy/AdvReac Type Severity Reaction Status Date / Time No Known Allergies Allergy Verified 09/07/22 14:18 [No Known Allergies*] Assessment & Plan Assessment & Plan (1) Major depressive disorder: Status: Acute Code(s): F32.9 - Major depressive disorder, single episode, unspecified (2) Panic disorder: Status: Acute Code(s): F41.0 - Panic disorder [episodic paroxysmal anxiety] Plan Ms. Sparks is a 67 year old woman with hx of MDD, panic disorder who self prese [place] [facility] [place] [facility] due to increase anxious mood, feeling restless, need to pace. Despite several years of suffering from depression and anxiety, pt reports this feels different. pt noted to be tapping feet as she talks with this journalists and other writers. I suspect she is experiencing akathisia most likely secondary to seroquel. We discussed stopping seroquel, switching clonazepam to ativan, instead of dividing dose of cymbalta doing once a day so it won't affect her sleep. PLAN 1. Admit to M3, CV 15 minutes checks 2. d/c seroquel, start ativan 1mg po BID, may need to adjust dose, until s/s of akathisia resolve 3. cymbalta 60mg po daily instead of 30mg po BID. 4. Obtain collateral information 5. Aftercare planning. 10/13/22 cont plan of care monitor for med s/e 10/14/22 Pt doing well future oriented feels ready for d/c Patient educated on: diagnosis, medication risk/benefits and therapeutic strategies Informed Consent: understands Reason for contiued inpatient stay Substantial Risk for: stable for discharge (in am ) Time Spent With Patient Time: Total time managing care of this patient today ____ minutes.
[2022-10-14] MEDS: LORazepam 0.5 MG TABLET PO (16:47)
[2022-10-14] MEDS: LORazepam 1 MG TABLET PO (20:16)
[2022-10-15] MEDS: Cholecalciferol (Vitamin D3) 25 MCG TABLET 125 MCG PO (08:50)
[2022-10-15] MEDS: Multivitamin TABLET 1 TAB PO (08:51)
[2022-10-15] MEDS: amLODIPine Besylate 5 MG TABLET PO (08:51)
[2022-10-15] MEDS: calcium polycarbophiL TABLET 1 TAB PO (08:51)
[2022-10-15] MEDS: Escitalopram Oxalate 20 MG TABLET PO (08:51)
[2022-10-15] MEDS: Pravastatin Sodium 20 MG TABLET PO (08:52)
[2022-10-15 12:21] VITALS: BP 110/60; PULSE 67; RESP 16; TEMP 36.8; O2SAT 94
--- NOTE | 2022-10-15 13:49 | P.DS_ITS ---
DS: Providers Provider Date of Service: 09/15/22 Date of admission: 10/09/22 16:42 Primary care physician: JENNIE Rosales DS: Diagnosis Discharge Diagnosis (1) Major depressive disorder: Status: Acute (2) Panic disorder: Status: Acute DS: Medications Discharge Medications Home Medications: Previous Rx's Medication Instructions Recorded Bifidobacterium infantis 4 mg 4 mg PO DAILY 30 days #30 caps 09/24/22 capsule (Align) alendronate 70 mg tablet (Fosamax) 70 mg PO QWEEK 90 days #13 tabs 09/24/22 amlodipine 5 mg tablet (Norvasc) 5 mg PO DAILY 30 days #30 tabs 09/24/22 methylcellulose (laxative) 500 mg 1,000 mg PO BID constipation 30 09/24/22 tablet (Citrucel) days #120 tabs multivitamin 1 tab PO DAILY #30 tabs 09/24/22 pravastatin 20 mg tablet 20 mg PO DAILY #30 caps 09/24/22 escitalopram oxalate 20 mg tablet 20 mg PO DAILY 15 days #15 tabs 10/14/22 lorazepam 1 mg tablet See Rx Instructions .Route 10/14/22 .COMPLEX #20 tabs calcium carbonate 600 mg calcium 1,200 mg PO DAILY 30 days #60 tabs 10/23/22 (1,500 mg) tablet (Calcium) cholecalciferol (vitamin D3) 125 125 mcg PO DAILY 30 days #30 tabs 10/23/22 mcg (5,000 unit) tablet (Vitamin D3) hydroxyzine HCl 25 mg tablet 25 mg PO Q6H PRN Anxiety 30 days 10/23/22 #60 tabs Mental Status Exam Mental Status Exam Narrative: Mental Status Exam Narrative: Appearance: Casually dressed Behavior: Cooperative appropriate psychomotor: Within normal limits Speech: Normal volume and prosody Thought proccess logical and goal-directed Thought content: Future oriented no self-harming thoughts feeling reassured and relieved Mood: Mild anxiety Affect: Appropriate to mood full affect SI:denies HI:denies VH/AH:none Delusions: None Insight/judgment: Feels reassured future oriented denies current significant symptoms states safe for discharge Aware of aftercare Memory/cog: Intact DS: Summary Hospital Course Hospital Course: See below for psychiatric admission note [address] [address] Psychiatry Admission Note (In)Signed Patient: Grayson Sparks#: [id number]: 3Acct:[id number]/Sex: 67 / FLoc:[id number]: Ajit Good cc: ~ HPI Date of Service: 10/09/22 Chief Complaint: SI Sources of Information: patient interviewed, chart reviewed and crisis/core team assessment reviewed HPI Subjective Notes: [place] Warning and Conditional Voluntary Narrative: Mrs. Sparks is a 67 year-old woman with hx of MDD, ELIAN with agarophobia who self presented to [facility] ED reporting increase anxious mood, restlessness, need to pace, poor sleep. Pt was recently discharged from on 09/24 after treatment of anxiety and depression. She was switched from paxil to cymbalta. Per notes and pt report, this switch went well and she did not experience discontinuation symptoms. She was also started on seroquel for sleep and low dose clonazepam. On the unit, pt reports 5-6 days after discharged she started to feel very restless, anxious, needing to pace. She states that although she has suffer with depression and anxiety for several years this feeling was different. She reports depressed mood in the setting of feeling as she will never get better. She denies suicidal or homicidal ideation. She denies hx of VH/AH. Past Psychiatric History: Inpt: 09/2022 for anxiety/depression OP: awaiting new appointment with Dr. Conner Morfin through [facility]. Past trial: paxil, prozac, cymbalta, seroquel. She was on Prozac for more than 25 years and eventually she was cross taper to Paxil with for improvement. She had been taking Paxil for the last 10 years. No hx of suicide attempts. Medical Evaluation Reviewed: Yes [facility] Medical History Depression Diverticulitis Dyslipidemia Essential hypertension History of anxiety Hyperkalemia Osteoarthritis (arthritis due to wear and tear of joints) PAC (premature atrial contraction) Surgical History History of carpal tunnel release History of total right knee replacement Hx of colonoscopy Family History: Her mother used to abuse alcohol and she has 2 siblings with alcohol abuse disorder Social History: . The patient is the oldest of 3 children, her milestones were achieved at expected age and she was raised by her parents. She reported that she was very close to her father but he when she was 17, her mother used to abuse alcohol and she had a difficult relation with her. She was a good student, graduate from high school and then go to college. At age of 19 she got and had her daughter when she was 21, eventually she her 1st and this relation lasted between 6 or 7 years. She remarried and she has been with her for the last 30 years. 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 Trauma History: Denies Diagnostics Vital Signs (24Hr): Vital Signs - 24 hr 10/09/22 17:52 10/09/22 20:20 Temperature 97.1 F 98.1 F Pulse Rate 83 74 Respiratory Rate 18 18 Blood Pressure 134/86 119/60 Pulse Oximetry 95 95 Oxygen Delivery Method Room Air Room Air BMI result Body Mass Index 24.3 Labs Results: 10/09/22 10:27 document embedded image 10/09/22 10:27 document embedded image Labs: Laboratory Results - last 48 hr 10/09/22 10/09/22 10/09/22 09:33 09:33 09:34 WBC RBC Hgb Hct MCV MCH MCHC RDW Plt Count MPV Immature Gran % (Auto) Neut % (Auto) Lymph % (Auto) [place] % (Auto) Eos % (Auto) Baso % (Auto) Lymph # (Auto) [place] # (Auto) Eos # (Auto) Baso # (Auto) Abs Immat Gran (auto) Absolute Neuts (auto) Absolute Nucleated RBC Nucleated RBC % (auto) Sodium Potassium Chloride Carbon Dioxide Anion Gap BUN Creatinine Estim Creat Clear Calc Estimated GFR Random Glucose Calcium Total Bilirubin AST ALT Alkaline Phosphatase Total Protein Albumin Urine Color Dark Yellow Urine Appearance Clear Urine pH 7.0 Ur Specific [place] 1.020 Urine Protein Trace Urine Glucose (UA) Negative Urine Ketones Trace Urine Blood Negative Urine Nitrite Negative Ur Leukocyte Esterase Trace H Urine RBC 0-2 Urine WBC 0-5 Ur Squamous Epith Cells 0-2 Urine Bacteria None Seen Hyaline Casts 0-2 Urine Opiates Screen Not Detected Urine Fentanyl Screen Not Detected Ur Barbiturates Screen Not Detected Ur Phencyclidine Scrn Not Detected Ur Amphetamines Screen Not Detected U Benzodiazepines Scrn Not Detected Urine Cocaine Screen Not Detected U Marijuana (THC) Screen Not Detected Ethyl Alcohol Influenza Type A (PCR) NEGATIVE Influenza Type B (PCR) NEGATIVE RSV RNA Qual (PCR) NEGATIVE SARS-CoV-2 RNA (RT-PCR) NEGATIVE 10/09/22 10/09/22 10/09/22 10:27 10:27 10:27 WBC 10.7 RBC 5.07 Hgb 15.7 Hct 46.3 MCV 91.3 MCH 31.0 MCHC 33.9 RDW 12.1 Plt Count 285 MPV 9.4 Immature Gran % (Auto) 0.9 H Neut % (Auto) 63.0 Lymph % (Auto) 28.6 [place] % (Auto) 6.6 Eos % (Auto) 0.5 Baso % (Auto) 0.4 Lymph # (Auto) 3.1 [place] # (Auto) 0.7 Eos # (Auto) 0.1 Baso # (Auto) 0.0 Abs Immat Gran (auto) 0.10 H Absolute Neuts (auto) 6.7 Absolute Nucleated RBC 0.000 Nucleated RBC % (auto) 0.0 Sodium 139 Potassium 4.0 Chloride 104 Carbon Dioxide 27 Anion Gap 12 BUN 12 Creatinine 0.70 Estim Creat Clear Calc 73.7 Estimated GFR > 60 Random Glucose 126 H Calcium 10.0 Total Bilirubin 0.7 AST 19 ALT 25 Alkaline Phosphatase 47 Total Protein 7.7 Albumin 4.7 Urine Color Urine Appearance Urine pH Ur Specific [place] Urine Protein Urine Glucose (UA) Urine Ketones Urine Blood Urine Nitrite Ur Leukocyte Esterase Urine RBC Urine WBC Ur Squamous Epith Cells Urine Bacteria Hyaline Casts Urine Opiates Screen Urine Fentanyl Screen Ur Barbiturates Screen Ur Phencyclidine Scrn Ur Amphetamines Screen U Benzodiazepines Scrn Urine Cocaine Screen U Marijuana (THC) Screen Ethyl Alcohol < 10 Influenza Type A (PCR) Influenza Type B (PCR) RSV RNA Qual (PCR) SARS-CoV-2 RNA (RT-PCR) Meds/Allergies Allergies Allergies Allergy/AdvReac Type Severity Reaction Status Date / Time No Known Allergies Allergy Verified 09/07/22 14:18 [No Known Allergies*] Mental Status Exam Mental Status Exam Narrative: Appearance: wearing hospital gown, fair hygiene, visibly anxious. Behavior: cooperative Speech: clear, normal rate/rhythm/volume, spontaneous Psychomotor: some restlessness, tapping feet. TP: linear TC: feeling overwhelmed, anxious Mood: anxious Affect: congruent SI: none HI: none VH/AH: none Delusions: none Insight/judgment: fair x 2. Alert, oriented x 3. not formally tested. Assessment & Plan Assessment & Plan (1) Major depressive disorder: Status: Acute Code(s): F32.9 - Major depressive disorder, single episode, unspecified (2) Panic disorder: Status: Acute Code(s): F41.0 - Panic disorder [episodic paroxysmal anxiety] Plan Ms. Sparks is a 67 year old woman with hx of MDD, panic disorder who self presented to [facility] ED due to increase anxious mood, feeling restless, need to pace. Despite several years of suffering from depression and anxiety, pt reports this feels different. pt noted to be tapping feet as she talks with this senior writer. I suspect she is experiencing akathisia most likely secondary to seroquel. We discussed stopping seroquel, switching clonazepam to ativan, instead of dividing dose of cymbalta doing once a day so it won't affect her sleep. PLAN 1. Admit to M3, CV 15 minutes checks 2. d/c seroquel, start ativan 1mg po BID, may need to adjust dose, until s/s of akathisia resolve 3. cymbalta 60mg po daily instead of 30mg po BID. 4. Obtain collateral information 5. Aftercare planning. Patient educated on: diagnosis and medication risk/benefits Reason for continued inpatient stay Substantial Risk for: harm to self and inability to function Statement Statement: I have reviewed the history and physical and performed a pertinent examination on my patient. No changes have occurred unless specified. If the History and Physical was not performed prior to admission, the Hospitalist's service will be consulted for completing the admission physical. [address] [address] Psychiatry Admission Note (In)Signed Patient: Eduardo SparksR#: [id number]: 3Acct:[id number]/Sex: 67 / FLoc:[id number] Hospital course The patient was initially admitted by Suyapa Franks NP and was then seen by Jennifer Vuong nurse practitioner. The patient had been on the geriatric unit in early September discharged on Cymbalta 60 mg but had felt quite restless anxious distraught depressed with passive self-harming thoughts and was thought to have Cymbalta induced agitation and akathisia and perhaps Seroquel induced akathisia. The patient was seen on 10/13/12 28 and 1229 . The patient had been switched from Cymbalta to escitalopram 20 mg did not seem to suffer from any Cymbalta withdrawal and felt much improved stable come in pleasant when seen with full affect and stated that she felt ready for discharge and understood that she most likely had been suffering from medication side effects and seem reassured that she had an appointment scheduled with her outpatient provider Dr. Morfin. The patient was pleasant and calm on the unit . I did keep the 20 mg escitalopram dose however did discuss that patient could have had SNRI induced agitation previously vs an agitated depression however she did not show any of those symptoms in the few days prior to discharge. I did suggest the patient use the Ativan p.r.n. if needed which she had 0.5 mg twice a day and 1 mg at bedtime. As the patient to call her psychiatrist or inpatient team if she again became severely anxious or agitated on the 20 mg Lexapro and if she did would recommend a slower titration. Patient was future oriented pleasant with full affect time of discharge and seemed much relieved Status at Discharge Functional status at discharge: independent ambulation Overall status at discharge: patient is progressing back to baseline Time Spent with Patient Time attestation: Total time managing care of this patient today ____ minutes. Discharge Plan Discharge Anticipated Discharge Date/Time: 10/15/22 11:00 Patient Disposition: Home, Self-Care Discharge Diagnosis: major depression panic disorder Referrals: Dr. Morfin (Psychiatry) [Other] - 10/20/22 9:00 am (IN OFFICE APPOINTMENT) Christy Swartz (Therapy) [Other] - 11/04/22 11:00 am (IN OFFICE APPOINTMENT) [facility] [Physician] - 1 Week (make appt within one week of discharge) Discharge Medications: New lorazepam 1 mg Tablet See Rx Instructions .ROUTE .COMPLEX Qty: 20 0RF Rx Instructions: 1 tab at bedtime 1/2 tab 2 times a day as needed for anxiety escitalopram oxalate 20 mg Tablet 20 mg PO DAILY 15 Days Qty: 15 0RF Continued multivitamin Tablet 1 tab PO DAILY Qty: 30 0RF alendronate [Fosamax] 70 mg tablet 70 mg PO QWEEK 90 Days Qty: 13 1RF amlodipine [Norvasc] 5 mg tablet 5 mg PO DAILY 30 Days Qty: 30 0RF Rx Instructions: patient is advised that she has an order for labs non fasting and should get this done to evaluate her potassium level and she understands/agrees pravastatin 20 mg tablet 20 mg PO DAILY Qty: 30 6RF Citrucel 500 mg tablet 1,000 mg PO BID 30 Days Qty: 120 6RF Rx Instructions: Take two tablets by mouth twice a day Align 4 mg Capsule 4 mg PO DAILY 30 Days Qty: 30 0RF Discontinued trazodone 50 mg Tablet 50 mg PO BEDTIME PRN (Reason: Insomnia) 30 Days Qty: 30 0RF clonazepam 0.5 mg Tablet 0.5 mg PO TID PRN (Reason: Anxiety) 30 Days Qty: 90 0RF duloxetine 30 mg Capsule,Delayed Release(Dr/Ec) 30 mg PO BID 30 Days Qty: 60 0RF quetiapine 50 mg Tablet 50 mg PO BEDTIME 30 Days Qty: 30 0RF No Action calcium carbonate [Calcium 600] 600 mg calcium (1,500 mg) tablet 1,200 mg PO DAILY 30 Days Qty: 60 6RF cholecalciferol (vitamin D3) [Vitamin D3] 125 mcg (5,000 unit) tablet 125 mcg PO DAILY 30 Days Qty: 30 6RF hydroxyzine HCl 25 mg tablet 25 mg PO Q6H PRN (Reason: Anxiety) 30 Days Qty: 60 1RF Discharge Orders: Discharge Order (Routine); Ordered 10/15/22 Ordered By: Markel Martinez Diet: Advance to usual diet Activity on Discharge: As tolerated Stand Alone Forms: Patient Portal Discharge page, Community Support Care Plan Goals: stable mood anxiety in control tolerate new med trial Health Concerns: panic disorder depression Plan of Treatment: lexapro lorazepam therapy please call if agaitation returns f/u with dr morfin Assessment: mood much more stable no si Discharge Date/Time: 10/15/22 13:05
--- NOTE | 2022-10-26 19:43 | PM.PSYDC ---
DS: Providers Provider Date of admission: 10/09/22 16:42 Primary care physician: JENNIE Rosales DS: Diagnosis Discharge Diagnosis (1) Major depressive disorder: Status: Acute (2) Panic disorder: Status: Acute DS: Medications Discharge Medications Home Medications: Previous Rx's Medication Instructions Recorded Bifidobacterium infantis 4 mg 4 mg PO DAILY 30 days #30 caps 09/24/22 capsule (Align) alendronate 70 mg tablet (Fosamax) 70 mg PO QWEEK 90 days #13 tabs 09/24/22 amlodipine 5 mg tablet (Norvasc) 5 mg PO DAILY 30 days #30 tabs 09/24/22 methylcellulose (laxative) 500 mg 1,000 mg PO BID constipation 30 09/24/22 tablet (Citrucel) days #120 tabs multivitamin 1 tab PO DAILY #30 tabs 09/24/22 pravastatin 20 mg tablet 20 mg PO DAILY #30 caps 09/24/22 escitalopram oxalate 20 mg tablet 20 mg PO DAILY 15 days #15 tabs 10/14/22 lorazepam 1 mg tablet See Rx Instructions .Route 10/14/22 .COMPLEX #20 tabs calcium carbonate 600 mg calcium 1,200 mg PO DAILY 30 days #60 tabs 10/23/22 (1,500 mg) tablet (Calcium) cholecalciferol (vitamin D3) 125 125 mcg PO DAILY 30 days #30 tabs 10/23/22 mcg (5,000 unit) tablet (Vitamin D3) hydroxyzine HCl 25 mg tablet 25 mg PO Q6H PRN Anxiety 30 days 10/23/22 #60 tabs DS: Summary Time Spent with Patient Time attestation: Total time managing care of this patient today ____ minutes. Discharge Plan Discharge Anticipated Discharge Date/Time: 10/15/22 11:00 Patient Disposition: Home, Self-Care Discharge Diagnosis: major depression in remission panic disorder Referrals: Dr. Morfin (Psychiatry) [Other] - 10/20/22 9:00 am (IN OFFICE APPOINTMENT) Christy Swartz (Therapy) [Other] - 11/04/22 11:00 am (IN OFFICE APPOINTMENT) [facility] [Physician] - 1 Week (make appt within one week of discharge) Discharge Medications: New lorazepam 1 mg Tablet See Rx Instructions .ROUTE .COMPLEX Qty: 20 0RF Rx Instructions: 1 tab at bedtime 1/2 tab 2 times a day as needed for anxiety escitalopram oxalate 20 mg Tablet 20 mg PO DAILY 15 Days Qty: 15 0RF Continued multivitamin Tablet 1 tab PO DAILY Qty: 30 0RF alendronate [Fosamax] 70 mg tablet 70 mg PO QWEEK 90 Days Qty: 13 1RF amlodipine [Norvasc] 5 mg tablet 5 mg PO DAILY 30 Days Qty: 30 0RF Rx Instructions: patient is advised that she has an order for labs non fasting and should get this done to evaluate her potassium level and she understands/agrees pravastatin 20 mg tablet 20 mg PO DAILY Qty: 30 6RF Citrucel 500 mg tablet 1,000 mg PO BID 30 Days Qty: 120 6RF Rx Instructions: Take two tablets by mouth twice a day Align 4 mg Capsule 4 mg PO DAILY 30 Days Qty: 30 0RF Discontinued trazodone 50 mg Tablet 50 mg PO BEDTIME PRN (Reason: Insomnia) 30 Days Qty: 30 0RF clonazepam 0.5 mg Tablet 0.5 mg PO TID PRN (Reason: Anxiety) 30 Days Qty: 90 0RF duloxetine 30 mg Capsule,Delayed Release(Dr/Ec) 30 mg PO BID 30 Days Qty: 60 0RF quetiapine 50 mg Tablet 50 mg PO BEDTIME 30 Days Qty: 30 0RF No Action calcium carbonate [Calcium 600] 600 mg calcium (1,500 mg) tablet 1,200 mg PO DAILY 30 Days Qty: 60 6RF cholecalciferol (vitamin D3) [Vitamin D3] 125 mcg (5,000 unit) tablet 125 mcg PO DAILY 30 Days Qty: 30 6RF hydroxyzine HCl 25 mg tablet 25 mg PO Q6H PRN (Reason: Anxiety) 30 Days Qty: 60 1RF Discharge Orders: Discharge Order (Routine); Ordered 10/15/22 Ordered By: Markel Martinez Diet: Advance to usual diet Activity on Discharge: As tolerated Stand Alone Forms: Patient Portal Discharge page, Community Support Care Plan Goals: stable mood anxiety in control tolerate new med trial Health Concerns: panic disorder depression Plan of Treatment: lexapro lorazepam therapy please call if agaitation returns f/u with dr morfin Assessment: mood much more stable no si Discharge Date/Time: 10/15/22 13:05
== END 2022-10-15 13:05 | disposition home or self-care (01) | DRG 881 ==
LOC: HO.ED 16:45 → HO.PADLT16 16:45
PROVIDERS: Physician Assistant Medical; Admitting Provider Psychiatry & Neurology Psychiatry; Emergency Provider Student in an Organized Health Care Education/Training Program; PCP Student in an Organized Health Care Education/Training Program; Visit Provider Psychiatry & Neurology Psychiatry
DX: F32.9 Major depressive disorder, single episode, unspecified (principal); I10 Essential (primary) hypertension; F41.1 Generalized anxiety disorder; F40.00 Agoraphobia, unspecified; Z20.822 Contact with and (suspected) exposure to COVID-19; Z79.899 Other long term (current) drug therapy
CPT/HCPCS: 0241U; 36415; 80053; 80307; 81001; 82077; 85025; 93005; 99285

== ENCOUNTER 2022-10-21 07:55 | Inpatient (IN) | payer MEDICARE, OTHER, SELFPAY ==
[2022-10-21] VITALS (7 sets, daily range): BP systolic 98–182; BP diastolic 58–90; PULSE 68–93; RESP 14–92; TEMP 36.5–36.8; O2SAT 92–99; BMI 25.5
--- NOTE | 2022-10-21 | ECG_ITS ---
Test Reason : REPEAT Blood Pressure : / mmHG Vent. Rate : 067 BPM Atrial Rate : 067 BPM P-R Int : 168 ms QRS Dur : 084 ms QT Int : 466 ms P-R-T Axes : -20 019 036 degrees QTc Int : 492 ms Normal sinus rhythm Prolonged QT Abnormal ECG When compared with ECG of 21-OCT-2022 10:59, No significant change was found Referred By: Tobi Pugh Electronically Signed By:NICOLLE KLINE
[2022-10-21 08:19] LABS: MANUAL DIFF FLAG NO
--- NOTE | 2022-10-21 08:26 | PC.NURSE ---
67 y/o F brought in by after she took 14 of her 1mg lorazepam pills in an attempt to end her life. this is her first attempt but does have hx of depression and has been in the ED x2 this past month. pt is tearful and hysterical in room, changed out of clothes, labs drawn and sent, pt aox2-3. VSS at this time. placed on monitor, 1:[address] awaiting recs.
--- NOTE | 2022-10-21 08:28 | ECG_ITS ---
Test Reason : OD Blood Pressure : / mmHG Vent. Rate : 079 BPM Atrial Rate : 079 BPM P-R Int : 162 ms QRS Dur : 084 ms QT Int : 424 ms P-R-T Axes : -27 -03 017 degrees QTc Int : 486 ms Sinus rhythm with Premature atrial complexes Otherwise normal ECG When compared with ECG of 09-OCT-2022 09:38, Premature ventricular complexes are no longer Present Premature atrial complexes are now Present Nonspecific T wave abnormality now evident in Anterior leads Referred By: Angelina Villafana Electronically Signed By:NICOLLE KLINE
[2022-10-21 08:30] LABS: Basophils Absolute Auto 0.1 X10*3/uL (0.0-0.2); Basophils Percent Auto 0.6 % (0-2); Eosinophils Absolute Auto 0.1 X10*3/uL (0.0-0.4); Eosinophils Percent Auto 0.4 % (0-4); Hematocrit 47.7 % (37.0-47.0); Imm Gran Abs Auto 0.13 X10*3/uL (0.00-0.03); Mean Corpuscular HGB Conc 33.5 g/dl (31.0-35.0); Mean Corpuscular Hemoglobin 31.1 pg (27.0-33.0); Mean Corpuscular Volume 92.8 fL (80.0-98.0); Mean Platelet Volume 9.5 fL (9.4-12.3); Monocytes Absolute Auto 0.7 X10*3/uL (0.1-1.2); Monocytes Percent Auto 5.7 % (2-11); Neutrophils Absolute Auto 7.5 x10*3/uL (2.0-8.3); Neutrophils Percent Auto 60.3 % (45-73); Platelet Count 317 X10*3/uL (160-400); Red Blood Count 5.14 X10*6/uL (4.20-5.50); White Blood Count 12.5 X10*3/uL (4.8-10.8)
--- NOTE | 2022-10-21 08:31 | ED.OVERDOSE ---
HPI - Overdose General Chief Complaint: Overdose Stated Complaint: Intentional OD Time Seen by Provider: 10/21/22 08:05 Source: patient Mode of arrival: ambulatory Limitations: no limitations History of Present Illness HPI Narrative: 67 yo female with a history of anxiety and depression, hypertension presents after an intentional overdose on lorazepam. Patient reports at 04:00 this morning she took approximately 14 tablets of 1 mg Ativan an attempt to hurt herself. Patient with recent admissions x2 to inpatient psych with medication changes. Patient was started on Lexapro to weeks ago and was released from inpatient psych approximately 1 week ago. Patient reports since being on Lexapro she has been struggling with increased anxiety, difficulty sleeping. She was prescribed lorazepam 1 mg on October 15 to take at bedtime to help with sleep. Patient reports she was given 20 tablets. She has taken 1 tablet each night and this morning at 04:00 when she could not sleep she took an additional 14 tablets but tells me that this was to harm herself and not just to sleep. Patient denies homicidal ideations, hallucinations, substance use. Patient did not take any of her other home medications this morning. Patient denies any other ingestion Related Data Previous Rx's Medication Instructions Recorded Bifidobacterium infantis 4 mg 4 mg PO DAILY 30 days #30 caps 09/24/22 capsule (Align) alendronate 70 mg tablet (Fosamax) 70 mg PO QWEEK 90 days #13 tabs 09/24/22 amlodipine 5 mg tablet (Norvasc) 5 mg PO DAILY 30 days #30 tabs 09/24/22 calcium carbonate 600 mg calcium 1,200 mg PO DAILY 30 days #60 tabs 09/24/22 (1,500 mg) tablet (Calcium) cholecalciferol (vitamin D3) 125 125 mcg PO DAILY 30 days #30 tabs 09/24/22 mcg (5,000 unit) tablet (Vitamin D3) hydroxyzine HCl 25 mg tablet 25 mg PO Q6H PRN Anxiety 30 days 09/24/22 #60 tabs methylcellulose (laxative) 500 mg 1,000 mg PO BID constipation 30 09/24/22 tablet (Citrucel) days #120 tabs multivitamin 1 tab PO DAILY #30 tabs 09/24/22 pravastatin 20 mg tablet 20 mg PO DAILY #30 caps 09/24/22 escitalopram oxalate 20 mg tablet 20 mg PO DAILY 15 days #15 tabs 10/14/22 lorazepam 1 mg tablet See Rx Instructions .Route 10/14/22 .COMPLEX #20 tabs Allergies Allergy/AdvReac Type Severity Reaction Status Date / Time No Known Allergies Allergy Verified 09/07/22 14:18 [No Known Allergies*] Review of Systems Review of Systems: Yes all other systems are reviewed and are negative Constitutional: Constitutional: Reports no additional constitutional complaints, Denies body ache(s), Denies chills, Denies fever(s), Denies headache(s) and Denies weakness Eyes: Eyes: Reports no additional eye complaints and Denies change in vision ENT: Reports system reviewed and no additional complaints, except as documented, Denies dizziness, Denies headache(s), Denies nasal congestion, Denies nasal discharge and Denies neck pain Cardiovascular: Cardiovascular: Reports no additional cardiovascular complaints, Denies chest pain, Denies leg edema and Denies dyspnea Respiratory: Respiratory: Reports no additional respiratory complaints, Denies cough and Denies dyspnea Gastrointestinal: Gastrointestinal: Reports no additional gastrointestinal complaints, Denies abdominal pain, Denies diarrhea, Denies nausea and Denies vomiting Genitourinary: Genitourinary: Reports no additional female genitourinary complaints and Denies urinary incontinence Musculoskeletal: Musculoskeletal: Reports no additional musculoskeletal complaints, Denies back pain, Denies arthralgias, Denies joint swelling, Denies neck pain, Denies numbness and Denies tingling Integumentary/Breasts: Skin/Breast: Reports system reviewed and no additional complaints, except as docu and Denies rash Neurologic: Reports system reviewed and no additional complaints, except as documented, Denies Abnormal speech present, Denies dizziness, Denies headache(s), Denies numbness, Denies tingling and Denies weakness Psychiatric: Psychiatric: Reports anxiety, Reports depression and Reports homicidal ideation [facility] Past Medical History Attestation statement: The following information was validated with the patient. Source: old records reviewed and nursing notes reviewed Medical History Depression Diverticulitis Dyslipidemia Essential hypertension History of anxiety Hyperkalemia Osteoarthritis (arthritis due to wear and tear of joints) PAC (premature atrial contraction) Surgical History History of carpal tunnel release History of total right knee replacement Hx of colonoscopy Family History Family History Mother Dementia Father No problems noted. Social History Social History Household Members: Spouse Housing: House Are you a primary insurance healthcare representative to a significant other at home: No Do you presently have visiting nurse or other home services: No Alcohol intake: never Patient Tobacco Use Status: Never used Tobacco e-Cigarette/Vaping Use: Never Used Second Hand Smoke Exposure: No Advance Directives: Yes Advance Directives on File: Yes Advance Directives Date on File: 07/31/20 Healthcare Proxy: No Guardian: No service: No Current occupational status: retired Current occupation: Right Handed Sexual orientation: Straight/Heterosexual Cognitive needs: No Hearing needs: No Vision needs: No Physical Exam Vital Signs: Vital Signs: Last Vital Signs Temp 97.7 F 10/21/22 15:11 Pulse 93 10/21/22 15:11 Resp 15 10/21/22 15:11 BP 114/58 L 10/21/22 15:11 Pulse Ox 94 10/21/22 15:11 O2 Del Method 10/21/22 15:11 BMI result Body Mass Index 25.5 Const: General: alert and anxious Orientation/consciousness: patient oriented x3 Limitations: no limitations HEENT: Head: Yes normal to inspection Ears: hearing grossly normal bilaterally and TM's normal bilaterally General nose exam: Normal external nose present Face and sinus: Yes normal facial exam Mouth: Normal oral and palatal mucosa present Throat: Yes posterior oropharynx normal, Yes tonsils normal and Yes uvula midline Eyes: General: appearance normal, both eyes and all related structures Pupils: Equal, round and reactive pupils present Neck: Neck: Yes normal visual inspection, Yes full ROM, Yes no lymphadenopathy and Yes no meningeal signs Chest: Chest palpation & inspection: normal inspection of the chest Resp: Effort & Inspection: normal respiratory effort Auscultation: clear to auscultation bilaterally Cardio: Rate: regular rate Rhythm: regular rhythm Peripheral pulses: Peripheral pulses 2+ throughout GI: Inspection: Yes normal to inspection Palpation (GI): Soft to palpation and nontender Auscultation: normal bowel sounds Back/Spine/Pelvis: Thoracic/Lumbar Spine: thoracic and lumbar spine normal to inspection Skin: General skin exam: no rashes or lesions noted Neuro: General: patient oriented x3, no meningeal signs, no focal motor deficits and normal sensation to monofilament Cranial nerves: Yes Equal, round and reactive pupils present Cognition (Neuro): normal cognition Speech: No Abnormal speech present Gait exam (Neuro): Normal gait present Motor exam (neuro): 5/5 motor strength present throughout Extrem: General: Yes normal to inspection Course Course Course Narrative: Labs are unremarkable. Repeat serial EKGs with no change. Patient mental status alert and oriented after period of observation. Patient will be admitted to inpatient psych after she was evaluated by the care team Medications Administered Discontinued Medications Generic Name Dose Route Start Last Admin Trade Name Freq PRN Reason Stop Dose Admin Amlodipine Besylate 5 mg 10/21/22 12:18 10/21/22 12:27 Amlodipine Besylate 5 Mg Tablet PO 10/21/22 12:19 5 mg ONCE ONE Administration Protocol Escitalopram Oxalate 20 mg 10/21/22 12:18 10/21/22 12:27 Escitalopram Oxalate 20 Mg Tablet PO 10/21/22 12:19 20 mg ONCE ONE Administration Medical Decision Making Medical Decision Making [facility] Narrative: 67-year-old female with history of depression here after intentional and overdose on 14 tablets of 1 mg lorazepam at 04:00 Patient arrives alert, anxious. Oriented x3. Normal neuro exam. Lungs clear. Vitals stable. Low concern for trauma. Low concern for additional ingestion. However, will obtain tox screen, Tylenol/salicylate/alcohol levels. EKG. Differential Diagnosis Differential Diagnoses: The differential diagnosis associated with the presentation includes Admission/Observation Consideration of admission/observation: Escalation of care including admission/observation considered Patient to be admitted to inpatient psych Consult Healthcare Provider 0830-spoke to poison Control. Recommended labs, EKG, 4 hours of observation. If hemodynamically stable patient can then be evaluated by crisis Lab Data Result Diagrams: 10/21/22 08:15 10/21/22 08:15 Labs: Lab Results 10/21/22 10/21/22 10/21/22 Range/Units 08:15 08:15 08:15 WBC 12.5 H (4.8-10.8) X10*3/uL RBC 5.14 (4.20-5.50) X10*6/uL Hgb 16.0 (12.0-16.0) g/dl Hct 47.7 H (37.0-47.0) % MCV 92.8 (80.0-98.0) fL MCH 31.1 (27.0-33.0) pg MCHC 33.5 (31.0-35.0) g/dl RDW 12.0 (11.0-16.0) % Plt Count 317 (160-400) X10*3/uL MPV 9.5 (9.4-12.3) fL Immature Gran % (Auto) 1.0 H (0.0-0.4) % Neut % (Auto) 60.3 (45-73) % Lymph % (Auto) 32.0 (20-40) % [place] % (Auto) 5.7 (2-11) % Eos % (Auto) 0.4 (0-4) % Baso % (Auto) 0.6 (0-2) % Lymph # (Auto) 4.0 (1.2-4.9) X10*3/uL [place] # (Auto) 0.7 (0.1-1.2) X10*3/uL Eos # (Auto) 0.1 (0.0-0.4) X10*3/uL Baso # (Auto) 0.1 (0.0-0.2) X10*3/uL Abs Immat Gran (auto) 0.13 H (0.00-0.03) X10*3/uL Absolute Neuts (auto) 7.5 (2.0-8.3) x10*3/uL Absolute Nucleated RBC 0.000 (0.0-0.012) X10*3/uL Nucleated RBC % (auto) 0.0 (0.0-0.2) /100WBC Sodium 141 (135-145) mmol/L Potassium 4.6 (3.3-5.1) mmol/L Chloride 105 (96-108) mmol/L Carbon Dioxide 30 H (22-29) mmol/L Anion Gap 11 L (12-20) BUN 12 (9-16) mg/dL Creatinine 0.69 (0.5-1.4) mg/dL Estim Creat Clear Calc 80.8 Estimated GFR > 60 Fasting Glucose 107 H (60-99) mg/dL Calcium 9.7 (8.4-10.2) mg/dL Magnesium (1.6-2.6) mg/dL Total Bilirubin 0.7 (0.0-1.0) mg/dL Direct Bilirubin (0.0-0.5) mg/dL AST 15 (5-31) U/L ALT 22 (0-31) U/L Alkaline Phosphatase 54 (39-117) U/L Total Protein 7.7 (6.5-8.0) g/dL Albumin 4.7 (3.5-5.0) g/dL Salicylates (15-30) mg/dL Urine Opiates Screen (Not Detect) Urine Fentanyl Screen (Not Detect) Acetaminophen (<30) mcg/mL Ur Barbiturates Screen (Not Detect) Ur Phencyclidine Scrn (Not Detect) Ur Amphetamines Screen (Not Detect) U Benzodiazepines Scrn (Not Detect) Urine Cocaine Screen (Not Detect) U Marijuana (THC) Screen (Not Detect) Ethyl Alcohol mg/dL COVID-19 (JANET) Negative (Negative) COVID-19 Clin Com See Note 10/21/22 10/21/22 10/21/22 Range/Units 08:43 11:20 13:59 WBC (4.8-10.8) X10*3/uL RBC (4.20-5.50) X10*6/uL Hgb (12.0-16.0) g/dl Hct (37.0-47.0) % MCV (80.0-98.0) fL MCH (27.0-33.0) pg MCHC (31.0-35.0) g/dl RDW (11.0-16.0) % Plt Count (160-400) X10*3/uL MPV (9.4-12.3) fL Immature Gran % (Auto) (0.0-0.4) % Neut % (Auto) (45-73) % Lymph % (Auto) (20-40) % [place] % (Auto) (2-11) % Eos % (Auto) (0-4) % Baso % (Auto) (0-2) % Lymph # (Auto) (1.2-4.9) X10*3/uL [place] # (Auto) (0.1-1.2) X10*3/uL Eos # (Auto) (0.0-0.4) X10*3/uL Baso # (Auto) (0.0-0.2) X10*3/uL Abs Immat Gran (auto) (0.00-0.03) X10*3/uL Absolute Neuts (auto) (2.0-8.3) x10*3/uL Absolute Nucleated RBC (0.0-0.012) X10*3/uL Nucleated RBC % (auto) (0.0-0.2) /100WBC Sodium (135-145) mmol/L Potassium (3.3-5.1) mmol/L Chloride (96-108) mmol/L Carbon Dioxide (22-29) mmol/L Anion Gap (12-20) BUN (9-16) mg/dL Creatinine (0.5-1.4) mg/dL Estim Creat Clear Calc Estimated GFR Fasting Glucose (60-99) mg/dL Calcium (8.4-10.2) mg/dL Magnesium 2.1 (1.6-2.6) mg/dL Total Bilirubin 0.6 (0.0-1.0) mg/dL Direct Bilirubin 0.2 (0.0-0.5) mg/dL AST 15 (5-31) U/L ALT 21 (0-31) U/L Alkaline Phosphatase 46 (39-117) U/L Total Protein 7.2 (6.5-8.0) g/dL Albumin 4.4 (3.5-5.0) g/dL Salicylates < 5.0 L (15-30) mg/dL Urine Opiates Screen Not Detected (Not Detect) Urine Fentanyl Screen Not Detected (Not Detect) Acetaminophen < 1 (<30) mcg/mL Ur Barbiturates Screen Not Detected (Not Detect) Ur Phencyclidine Scrn Not Detected (Not Detect) Ur Amphetamines Screen Not Detected (Not Detect) U Benzodiazepines Scrn Not Detected (Not Detect) Urine Cocaine Screen Not Detected (Not Detect) U Marijuana (THC) Screen Not Detected (Not Detect) Ethyl Alcohol < 10 mg/dL COVID-19 (JANET) (Negative) COVID-19 Clin Com Independent Interpretation I performed an independent interpretation of an: EKG Interpretation: I independently reviewed the EKG which was sinus rhythm with PACs rate of 79, normal SC, normal QRS, QTC 46. T-wave inversions leads V1 and V2 unchanged from previous EKG Repeat EKG shows no change. QTC 486 Independent Historian Clinical information obtained from an independent historian. History obtained from or confirmed by: Spouse External Record Review External record reviewed: Inpatient record (Reviewed inpatient record from recent psych admission) Discharge Plan Discharge Clinical Impression: Intentional overdose Patient Disposition: Admitted As Inpatient Interventions: [place]-Suicide Risk Severity Scale Last Done: 10/21/22 08:22
[2022-10-21 08:33] LABS: COVID-19 Test Negative (Negative); IDNOW Serial# BCCEAD1C
[2022-10-21 08:35] LABS: Alanine Aminotransferase 22 U/L (0-31); Albumin Level 4.7 g/dL (3.5-5.0); Alkaline Phosphatase 54 U/L (39-117); Anion Gap 11 (12-20); Aspartate Amino Transferase 15 U/L (5-31); Bilirubin Total 0.7 mg/dL (0.0-1.0); Blood Urea Nitrogen 12 mg/dL (9-16); Calcium 9.7 mg/dL (8.4-10.2); Carbon Dioxide 30 mmol/L (22-29); Chloride 105 mmol/L (96-108); Creatinine Clr Calc Pharmacy 80.8; Estimated Glomerular Filt Rate > 60; Glucose Fasting 107 mg/dL (60-99); Potassium 4.6 mmol/L (3.3-5.1); Sodium 141 mmol/L (135-145); Total Protein 7.7 g/dL (6.5-8.0)
[2022-10-21 09:11] LABS: Acetaminophen LAB < 1 mcg/mL (<30); Alanine Aminotransferase 21 U/L (0-31); Albumin Level 4.4 g/dL (3.5-5.0); Alkaline Phosphatase 46 U/L (39-117); Aspartate Amino Transferase 15 U/L (5-31); Bilirubin Direct 0.2 mg/dL (0.0-0.5); Bilirubin Total 0.6 mg/dL (0.0-1.0); Ethanol < 10 mg/dL; Salicylate < 5.0 mg/dL (15-30); Total Protein 7.2 g/dL (6.5-8.0)
--- NOTE | 2022-10-21 09:29 | PC.NURSE ---
responded to phone call from poison control and relayed data to their team, magnesium level obtained, EKG repeated
--- NOTE | 2022-10-21 10:47 | ECG_ITS ---
Test Reason : Repeat Blood Pressure : / mmHG Vent. Rate : 070 BPM Atrial Rate : 070 BPM P-R Int : 156 ms QRS Dur : 084 ms QT Int : 450 ms P-R-T Axes : 031 002 020 degrees QTc Int : 486 ms Normal sinus rhythm Normal ECG When compared with ECG of 21-OCT-2022 08:50, Premature atrial complexes are no longer Present Nonspecific T wave abnormality no longer evident in Anterior leads Referred By: Angelina Villafana Electronically Signed By:NICOLLE KLINE
[2022-10-21 11:41] LABS: Amphetamine Screen Urine Not Detected (Not Detect); Barbiturates, Urine Not Detected (Not Detect); Benzodiazepines Screen Urine Not Detected (Not Detect); Cannabinoid Screen Urine Not Detected (Not Detect); Cocaine Screen Urine Not Detected (Not Detect); Fentanyl, urine Not Detected (Not Detect); Opiate Screen Urine Not Detected (Not Detect); Phencyclidine Screen Urine Not Detected (Not Detect)
[2022-10-21] MEDS: amLODIPine Besylate 5 MG TABLET PO (12:27)
[2022-10-21] MEDS: Escitalopram Oxalate 20 MG TABLET PO (12:27)
--- NOTE | 2022-10-21 12:28 | PC.NURSE ---
pt resting comfortably in bed, in no distress, awaiting final plan, lunch tray delivered
--- NOTE | 2022-10-21 12:55 | MHC.CARE ---
Patient evaluated by the CARE Team, disposition determined to be inpatient psychiatric care. She is in agreement with the plan for admission to later today. Written assessment to follow. ED provider updated.
[2022-10-21 14:25] LABS: Magnesium 2.1 mg/dL (1.6-2.6)
--- NOTE | 2022-10-21 15:23 | PC.NURSE ---
pt remains stable, 1:1 sitter remains in the room, plan for patient to be admitted.
--- NOTE | 2022-10-21 18:32 | PC.NURSE ---
patient resting comfortably in bed, 1:[address], dinner tray delivered, VSS, awaiting inpt bed
--- NOTE | 2022-10-21 19:59 | PC.NURSE ---
poison control called this rn for update on pt status. per poison control repeat one more ekg at this time. poison control states they will call back for update. Dr. Pickard made aware of recommendations, agreeable to plan
--- NOTE | 2022-10-21 21:45 | PC.NURSE ---
this rn spoke with poison control at this time. updated on most recent ekg and pt mental status. per poison control no new orders at this time
--- NOTE | 2022-10-22 00:03 | PC.NURSE ---
nurse to nurse report given at about 2230. med rec completed at that time. awaiting bed order. bed made available. pt transported to by supervisor agricultural education and security via wheelchair
--- NOTE | 2022-10-22 02:54 | PC.ADMIT ---
Patient is a 67 year old , [place]isian speaking female admitted as a CV admission to at 2350 10/21/22 from the [facility] and put on 15 minute safety checks. Patient was medically cleared in the ED, following an intentional OD on 14 tablets of Ativan to end her life. Patient has a long history of anxiety and had finally become so overwhelmed with anxiety despite 2 recent psychiatric inpatient stays that she wanted to slip away this morning . Patient said that she is supposed to be seeing a psychiatrist and start with a new therapist, but her acute symptoms and behavior warranted hospitalization. Patient was cooperative but tired during the admission process. She did express hope that being inpatient and trying a different medication might be helpful. Orders were received. Patient able to go to sleep. No current SI or HI; she did not rate her anxiety or depression.
[2022-10-22 07:00] VITALS: BMI 25.7
[2022-10-22 08:30] VITALS: BP 146/80; PULSE 75; TEMP 37
[2022-10-22] MEDS: amLODIPine Besylate 5 MG TABLET PO (08:44)
[2022-10-22] MEDS: Calcium + Vitamin D 250 MG TABLET 500 MG PO (08:44)
[2022-10-22] MEDS: Escitalopram Oxalate 20 MG TABLET PO (08:45)
[2022-10-22] MEDS: Multivitamin TABLET 1 TAB PO (08:45)
[2022-10-22] MEDS: LORazepam 0.5 MG TABLET PO (08:46)
[2022-10-22 09:52] LABS: Alanine Aminotransferase 20 U/L (0-31); Albumin Level 4.5 g/dL (3.5-5.0); Alkaline Phosphatase 50 U/L (39-117); Anion Gap 14 (12-20); Aspartate Amino Transferase 15 U/L (5-31); Bilirubin Direct 0.2 mg/dL (0.0-0.5); Bilirubin Total 0.9 mg/dL (0.0-1.0); Blood Urea Nitrogen 15 mg/dL (9-16); Calcium 9.6 mg/dL (8.4-10.2); Carbon Dioxide 28 mmol/L (22-29); Chloride 105 mmol/L (96-108); Cholesterol 181 mg/dL; Creatinine Clr Calc Pharmacy 79.6; Estimated Glomerular Filt Rate > 60; Glucose Fasting 99 mg/dL (60-99); HDL Cholesterol 37 mg/dL; LDL Cholesterol Calculated 115 mg/dl; Potassium 4.8 mmol/L (3.3-5.1); Sodium 142 mmol/L (135-145); Total Protein 7.4 g/dL (6.5-8.0); Triglycerides 148 mg/dL
[2022-10-22 10:10] LABS: Thyroid Stimulating Hormone 1.87 uIU/mL (0.32-4.0)
--- NOTE | 2022-10-22 10:20 | P.HPPS_ITS ---
HPI Date of Service: 10/22/22 Chief Complaint: SI Sources of Information: patient interviewed, chart reviewed and crisis/core team assessment reviewed HPI Subjective Notes: [facility] Warning and Conditional Voluntary Narrative: Patient is a 67-year-old female with history of ELIAN with agoraphobia, and now depression, with 2 recent admissions to [facility] inpatient unit, recently discharged 10/14/2022, who re-presented for worsening anxiety and accidental overdose of Ativan. Patient is tearful and distraught. Recap of history In short, patient was overall stable for about 25 years on Prozac; when that pooped out she was switched to Paxil and stable for 5 years; patient was triggered in August and had a panic attack and ever since then her anxiety has been on bearable. Patient reports when she was last discharged on Lexapro, her anxiety was a little lower however when she went home her anxiety again skyrocketed. She was unable to sleep which triggered worsening anxiety and so she took an Ativan. Because she was still unable to sleep, she took another Ativan and kept taking them, up to 14 pills. Patient said in no way at all was thus a suicide attempt and she denies ever having any active SI in her life, though she does acknowledge that recently, she has sometimes wished she just could crawl into a hole and since her anxiety is so miserable. Patient reports multiple panic attacks throughout the day. She shares that insomnia triggers tremendous anxiety and patient shares some of her history that includes a lot of bad memories around anxiety and insomnia. Patient also was able to potentially make a connection between her history of going up with an alcoholic mother and recently being triggered this past August when on vacation with her alcoholic sister which seems to have opened up a Flood gait of formally repressed emotions. Until recently, patient denies depression. Patient is eager for medication changes. Recap of History: overall stable for about 25 years on Prozac 60mg until it pooped out Started Paxil 40mg and stable for 5 years Patient was triggered into severe panic attack in August 2022 when on vacation with alcoholic sister (likely opening up repressed emotions from growing up w/ alcoholic mother) Outpatient provider increased Paxil to 50 mg however after few days patient found it unbearable, jumping out of her skin and for the 1st time presented for inpatient admission [facility] admission August 2022: Paxil discontinued and patient started on Cymbalta and Seroquel. Discharged home but still anxious, with increased blood pressure, feeling dizzy and with a headache [facility] admission September 2022: Cymbalta/Seroquel discontinued and patient started on Lexapro 20 mg, discharged home. This past week, anxiety unbearable, insomnia and accidentally overtook Ativan Patient now presents for 3rd admission to [facility] October 2022 Past Psychiatric History: -Overall stable for about 25 years on Prozac 60mg until it pooped out -Started Paxil 40mg and stable for 5 years -Patient was triggered into severe panic attack in August 2022 when on vacation with alcoholic sister (likely opening up repressed emotions from grow ing up w/ alcoholic mother) -Outpatient provider increased Paxil to 50 mg however after few days patient found it unbearable, jumping out of her skin and for the 1st time presented for inpatient admission -[facility] admission August 2022 (1st ever psych admission): Paxil discontinued and patient started on Cymbalta and Seroquel. Discharged home but still anxious, with increased blood pressure, feeling dizzy and with a headache -[facility] admission September 2022: Cymbalta/Seroquel discontinued and patient started on Lexapro 20 mg, discharged home. This past week, anxiety unbearable, insomnia and accidentally overtook Ativan -Patient now presents for 3rd admission to [facility] October 2022 -OP: awaiting new appointment with Dr. Conner Manjarrez through [facility]. -Past trial: paxil, prozac, cymbalta, seroquel. Also Trazodone (not effective) -No hx of suicide attempts. Medical Evaluation Reviewed: Yes [facility] Medical History (Updated 10/23/22 @ 09:25 by Ryan Bhardwaj MD) Depression Diverticulitis Dyslipidemia Essential hypertension ELIAN (generalized anxiety disorder) History of anxiety Hyperkalemia Osteoarthritis (arthritis due to wear and tear of joints) PAC (premature atrial contraction) PTSD (post-traumatic stress disorder) Surgical History History of carpal tunnel release History of total right knee replacement Hx of colonoscopy Family History: Her mother used to abuse alcohol and she has 2 siblings with alcohol abuse disorder Social History: . The patient is the oldest of 3 children, her milestones were achieved at expected age and she was raised by her parents. She reported that she was very close to her father but he when she was 17, her mother used to abuse alcohol and she had a difficult relation with her. She was a good student , graduate from high school and then go to college. At age of 19 she got and had her daughter when she was 21, eventually she her 1st and this relation lasted between 6 or 7 years. She remarried and she has been with her for the last 30 years. She was a [employer] of [employer]. Substance History: Denies history of alcohol or drug use Trauma History: Traumatic memories from alcoholic mother Diagnostics Vital Signs (24Hr): Vital Signs - 24 hr 10/21/22 10:25 10/21/22 15:11 10/21/22 12:00 Temperature 97.9 F 97.7 F 98.1 F Pulse Rate 68 93 76 Respiratory Rate 92 H 15 18 Blood Pressure 134/90 H 114/58 L 134/76 Pulse Oximetry 92 94 99 Oxygen Delivery Method Room Air Room Air Room Air Oxygen Flow Rate 10/21/22 17:10 10/21/22 18:40 10/21/22 23:20 Temperature 97.9 F Pulse Rate 72 68 78 Respiratory Rate 14 18 16 Blood Pressure 98/70 115/61 Pulse Oximetry 97 95 Oxygen Delivery Method Nasal Cannula Nasal Cannula Oxygen Flow Rate 2 96 BMI result Body Mass Index 25.5 Labs 10/21/22 08:15 10/22/22 08:05 Labs: Laboratory Results - last 48 hr 10/21/22 10/21/22 10/21/22 08:15 08:15 08:15 WBC 12.5 H RBC 5.14 Hgb 16.0 Hct 47.7 H MCV 92.8 MCH 31.1 MCHC 33.5 RDW 12.0 Plt Count 317 MPV 9.5 Immature Gran % (Auto) 1.0 H Neut % (Auto) 60.3 Lymph % (Auto) 32.0 [place] % (Auto) 5.7 Eos % (Auto) 0.4 Baso % (Auto) 0.6 Lymph # (Auto) 4.0 [place] # (Auto) 0.7 Eos # (Auto) 0.1 Baso # (Auto) 0.1 Abs Immat Gran (auto) 0.13 H Absolute Neuts (auto) 7.5 Absolute Nucleated RBC 0.000 Nucleated RBC % (auto) 0.0 Sodium 141 Potassium 4.6 Chloride 105 Carbon Dioxide 30 H Anion Gap 11 L BUN 12 Creatinine 0.69 Estim Creat Clear Calc 80.8 Estimated GFR > 60 Fasting Glucose 107 H Calcium 9.7 Magnesium Total Bilirubin 0.7 Direct Bilirubin AST 15 ALT 22 Alkaline Phosphatase 54 Total Protein 7.7 Albumin 4.7 Triglycerides Cholesterol LDL Cholesterol, Calc HDL Cholesterol TSH Salicylates Urine Opiates Screen Urine Fentanyl Screen Acetaminophen Ur Barbiturates Screen Ur Phencyclidine Scrn Ur Amphetamines Screen U Benzodiazepines Scrn Urine Cocaine Screen U Marijuana (THC) Screen Ethyl Alcohol COVID-19 (JANET) Negative COVID-19 Clin Com See Note 10/21/22 10/21/22 10/21/22 08:43 11:20 13:59 WBC RBC Hgb Hct MCV MCH MCHC RDW Plt Count MPV Immature Gran % (Auto) Neut % (Auto) Lymph % (Auto) [place] % (Auto) Eos % (Auto) Baso % (Auto) Lymph # (Auto) [place] # (Auto) Eos # (Auto) Baso # (Auto) Abs Immat Gran (auto) Absolute Neuts (auto) Absolute Nucleated RBC Nucleated RBC % (auto) Sodium Potassium Chloride Carbon Dioxide Anion Gap BUN Creatinine Estim Creat Clear Calc Estimated GFR Fasting Glucose Calcium Magnesium 2.1 Total Bilirubin 0.6 Direct Bilirubin 0.2 AST 15 ALT 21 Alkaline Phosphatase 46 Total Protein 7.2 Albumin 4.4 Triglycerides Cholesterol LDL Cholesterol, Calc HDL Cholesterol TSH Salicylates < 5.0 L Urine Opiates Screen Not Detected Urine Fentanyl Screen Not Detected Acetaminophen < 1 Ur Barbiturates Screen Not Detected Ur Phencyclidine Scrn Not Detected Ur Amphetamines Screen Not Detected U Benzodiazepines Scrn Not Detected Urine Cocaine Screen Not Detected U Marijuana (THC) Screen Not Detected Ethyl Alcohol < 10 COVID-19 (JANET) COVID-19 Clin Com 10/22/22 08:05 WBC RBC Hgb Hct MCV MCH MCHC RDW Plt Count MPV Immature Gran % (Auto) Neut % (Auto) Lymph % (Auto) [place] % (Auto) Eos % (Auto) Baso % (Auto) Lymph # (Auto) [place] # (Auto) Eos # (Auto) Baso # (Auto) Abs Immat Gran (auto) Absolute Neuts (auto) Absolute Nucleated RBC Nucleated RBC % (auto) Sodium 142 Potassium 4.8 Chloride 105 Carbon Dioxide 28 Anion Gap 14 BUN 15 Creatinine 0.70 Estim Creat Clear Calc 79.6 Estimated GFR > 60 Fasting Glucose 99 Calcium 9.6 Magnesium Total Bilirubin 0.9 Direct Bilirubin 0.2 AST 15 ALT 20 Alkaline Phosphatase 50 Total Protein 7.4 Albumin 4.5 Triglycerides 148 Cholesterol 181 LDL Cholesterol, Calc 115 HDL Cholesterol 37 TSH 1.87 Salicylates Urine Opiates Screen Urine Fentanyl Screen Acetaminophen Ur Barbiturates Screen Ur Phencyclidine Scrn Ur Amphetamines Screen U Benzodiazepines Scrn Urine Cocaine Screen U Marijuana (THC) Screen Ethyl Alcohol COVID-19 (JANET) COVID-19 Clin Com Meds/Allergies Allergies Allergies Allergy/AdvReac Type Severity Reaction Status Date / Time No Known Allergies Allergy Verified 09/07/22 14:18 [No Known Allergies*] Mental Status Exam Mental Status Exam Narrative: Pt is alert and oriented; behavior is cooperative, but tearful, breaking down in sobs; dressed in casual attire with unkempt hair but adequate hygiene; mood is described as anxious and affect congruent, tearful; eye contact appropriate; Speech is normal rate, volume and prosody and not pressured; no psychomotor agitation/retardation present; thought process is organized and goal directed; Thought content is on hopelessness of situation; otherwise pertinent to relevant topics and without any delusional content, paranoid ideations or grandiosity; intermittent passive SI, but no intent or plans, no history of any active SI; no HI. There is no evidence of perceptual disturbance. Patients insight and judgment are impaired, but adequate Assessment & Plan Assessment & Plan (1) ELIAN (generalized anxiety disorder): Status: Acute Code(s): F41.1 - Generalized anxiety disorder (2) Major depressive disorder: Status: Acute Code(s): F32.9 - Major depressive disorder, single episode, unspecified (3) Panic disorder: Status: Acute Code(s): F41.0 - Panic disorder [episodic paroxysmal anxiety] (4) PTSD (post-traumatic stress disorder): Status: Suspected Code(s): F43.10 - Post-traumatic stress disorder, unspecified Plan Patient is a 67-year-old female with history of MDD, ELIAN with agoraphobia, with 2 recent admissions to [facility] inpatient unit, recently discharged 10/14/2022, who re-presented for worsening anxiety and accidental overdose of Ativan. Patient is tearful and distraught. Recap of history In short, patient was overall stable for about 25 years on Prozac; when that pooped out she was switched to Paxil and stable for 5 years; patient was triggered in August and had a panic attack and ever since then her anxiety has been on bearable. Patient reports when she was last discharged on Lexapro, her anxiety was a little lower however when she went home her anxiety again skyrocketed. She was unable to sleep which triggered worsening anxiety and so she took an Ativan. Because she was still unable to sleep, she took another Ativan and kept taking them, up to 14 pills. Patient said in no way at all was thus a suicide attempt and she denies ever having any active SI in her life, though she does acknowledge that recently, she has sometimes wished she just could crawl into a hole and since her anxiety is so miserable. Patient reports multiple panic attacks throughout the day. She shares that insomnia triggers tremendous anxiety and patient shares some of her history that includes a lot of bad memories around anxiety and insomnia. Patient also was able to potentially make a connection between her history of going up with an alcoholic mother and recently being triggered this past August when on vacation with her alcoholic sister which seems to have opened up a Flood gait of formally repressed emotions. Patient is eager for medication changes. Recap of History: overall stable for about 25 years on Prozac 60mg until it pooped out Started Paxil 40mg and stable for 5 years Patient was triggered into severe panic attack in August 2022 when on vacation with alcoholic sister (likely opening up repressed emotions from growing up w/ alcoholic mother) Outpatient provider increased Paxil to 50 mg however after few days patient found it unbearable, jumping out of her skin and for the 1st time presented for inpatient admission [facility] admission August 2022: Paxil discontinued and patient started on Cymbalta and Seroquel. Discharged home but still anxious, with increased blood pressure, feeling dizzy and with a headache [facility] admission September 2022: Cymbalta/Seroquel discontinued and patient started on Lexapro 20 mg, discharged home. This past week, anxiety unbearable, insomnia and accidentally overtook Ativan Patient now presents for 3rd admission to [facility] October 2022 IMPRESSION: Long history of anxiety, and now depression. Patient may not quite technically criteria for PTSD however she has traumatic memories growing up with her alcoholic mother that have affected her entire life and seem to be driving much of her current decompensation. Patient has never discussed these memories and associated anxieties but was re-triggered into panic this past August when on vacation with her alcoholic sister. It seems that at this time, those repressed traumatic memories were let lose. Patient was stable on Paxil 40 mg. It is possible that Paxil remains partially helpful but was just not enough to hold off this rapid influx of emotion. It seems less likely that Paxil suddenly stop working as it was working fine for 5 years until this 1 event in August. Patient could not tolerate higher dose of Paxil. It is also possible that patient is having some discontinuation syndrome as she has only been on other antidepressants for very short period of time. Patient agrees that she needs therapy to discuss her past. In the short term patient agrees to treating her immediate anxiety with clonazepam and or clonidine; discussed risks/side effects of medications, including her accidental misuse of benzos and patient is okay with restarting and will make a plan for safety if discharged on benzos. García nt also agrees to restart Paxil given possibility of discontinuation syndrome and also that Paxil may be partially helpful. Will also start patient on mirtazapine since she has insomnia (again discussed risks/side effects, patient ask questions and is okay with this medication. Since patient has not seemed to benefit from a either SSRIs or and SNRI, will also consider TCAs. DMS was also discussed. -at this time patient's anxiety is so overwhelming that she cannot function on her own in the community and requires immediate medication management that cannot be done and in outpatient setting. PLAN CV Q 15 minute checks Clonazepam 0.5 b.i.d. at 09:00 o'clock and 14:00 for severe, unrelenting daytime anxiety Clonazepam 0.5 mg q.h.s. p.r.n. for insomnia Restart Paxil and titrate to 20 mg to help treat possible discontinuation syndrome and since Paxil may still be partially helpful Start mirtazapine 7.5 mg q.h.s. Continue other home medications Will get collateral; social work to help with setting up aftercare including therapy Will consider TMS consult Patient educated on: diagnosis, medication risk/benefits and therapeutic strategies Informed Consent: understands Reason for continued inpatient stay Substantial Risk for: inability to function and rapid decompensation Statement Statement: I have reviewed the history and physical and performed a pertinent examination on my patient. No changes have occurred unless specified. If the History and Physical was not performed prior to admission, the Hospitalist's service will be consulted for completing the admission physical. Time Spent With Patient Time: Total time managing care of this patient today ____ minutes.
[2022-10-22 10:26] LABS: Estimated Average Glucose 108 mg/dL; Hemoglobin A1c % 5.4 %
[2022-10-22 10:27] LABS: Folate 15.9 ng/mL (> or = 4.0); Vitamin B12 483 pg/mL (200-900)
[2022-10-22 16:21] VITALS: BP 137/87; PULSE 85; RESP 16; TEMP 36.4; O2SAT 99
[2022-10-22] MEDS: cloNIDine HCL 0.1 MG TABLET PO (16:50)
[2022-10-22] MEDS: PARoxetine HCL 10 MG TABLET PO (16:50)
[2022-10-22] MEDS: clonazePAM 0.5 MG TABLET PO (20:05)
[2022-10-22] MEDS: Pravastatin Sodium 20 MG TABLET PO (20:05)
[2022-10-22] MEDS: Mirtazapine 7.5 MG TABLET PO (20:06)
[2022-10-23 08:30] VITALS: BP 151/86; PULSE 67; TEMP 36.4
[2022-10-23] MEDS: Cholecalciferol (Vitamin D3) 25 MCG TABLET 125 MCG PO (09:09)
[2022-10-23] MEDS: Multivitamin TABLET 1 TAB PO (09:09)
[2022-10-23] MEDS: Calcium + Vitamin D 250 MG TABLET 500 MG PO (09:09)
[2022-10-23] MEDS: PARoxetine HCL 20 MG TABLET PO (09:09)
[2022-10-23] MEDS: clonazePAM 0.5 MG TABLET PO ×3 (09:10→21:57)
[2022-10-23] MEDS: amLODIPine Besylate 5 MG TABLET PO (09:10)
--- NOTE | 2022-10-23 10:31 | HO.PSYCHPN ---
Subjective Subjective Date of Service: 10/23/22 Reason For Visit: SI Interim History: Patient reports she is doing a little better today. Less anxious and more hopeful. Patient did sleep last night and has made use of clonazepam. However she would like to have it changed to p.r.n. she will also try clonidine more often. Patient agrees to further increasing Paxil and says she he would like to partial hospital set up post discharge. Employee Relations Administrator and patient engaged in CBT exercise and discussed automatic thoughts and how they relate to feelings and then behaviors; patient was able to make connections between her past and present struggles and said she has never before consider these things; she realizes her need for therapy. Mental Status Exam Mental Status Exam Narrative: Pt is alert and oriented; behavior is cooperative, more calm, not tearful; dressed in casual attire with brushed hair but adequate hygiene; mood is described as little better and affect congruent; eye contact appropriate; Speech is normal rate, volume and prosody and not pressured; no psychomotor agitation/retardation present; thought process is organized and goal directed; Thought content is more hopeful, on tx, her past; otherwise pertinent to relevant topics and without any delusional content, paranoid ideations or grandiosity; no SI; no HI; there is no evidence of perceptual disturbance. Patients insight and judgment are impaired but improved and adequate Diagnostics Vital Signs (24Hr): Vital Signs - 24 hr 10/22/22 16:21 Temperature 97.6 F Pulse Rate 85 Respiratory Rate 16 Blood Pressure 137/87 Pulse Oximetry 99 Oxygen Delivery Method Room Air BMI result Body Mass Index 25.7 Labs 10/21/22 08:15 10/22/22 08:05 Labs: Laboratory Results - last 48 hr 10/21/22 10/21/22 10/22/22 11:20 13:59 08:05 Sodium 142 Potassium 4.8 Chloride 105 Carbon Dioxide 28 Anion Gap 14 BUN 15 Creatinine 0.70 Estim Creat Clear Calc 79.6 Estimated GFR > 60 Fasting Glucose 99 Estimat Average Glucose Hemoglobin A1c % Calcium 9.6 Magnesium 2.1 Total Bilirubin 0.9 Direct Bilirubin 0.2 AST 15 ALT 20 Alkaline Phosphatase 50 Total Protein 7.4 Albumin 4.5 Triglycerides 148 Cholesterol 181 LDL Cholesterol, Calc 115 HDL Cholesterol 37 Vitamin B12 Folate TSH 1.87 Urine Opiates Screen Not Detected Urine Fentanyl Screen Not Detected Ur Barbiturates Screen Not Detected Ur Phencyclidine Scrn Not Detected Ur Amphetamines Screen Not Detected U Benzodiazepines Scrn Not Detected Urine Cocaine Screen Not Detected U Marijuana (THC) Screen Not Detected 10/22/22 10/22/22 08:05 08:05 Sodium Potassium Chloride Carbon Dioxide Anion Gap BUN Creatinine Estim Creat Clear Calc Estimated GFR Fasting Glucose Estimat Average Glucose 108 Hemoglobin A1c % 5.4 Calcium Magnesium Total Bilirubin Direct Bilirubin AST ALT Alkaline Phosphatase Total Protein Albumin Triglycerides Cholesterol LDL Cholesterol, Calc HDL Cholesterol Vitamin B12 483 Folate 15.9 TSH Urine Opiates Screen Urine Fentanyl Screen Ur Barbiturates Screen Ur Phencyclidine Scrn Ur Amphetamines Screen U Benzodiazepines Scrn Urine Cocaine Screen U Marijuana (THC) Screen Medications Medications Current Medications Acetaminophen (Acetaminophen 325 Mg Tablet) 650 mg PO Q6H PRN PRN Reason: Headache/Pain Mild Scale (1-3) Al Hydroxide/Mg Hydroxide (Magnesium Hydrox/Alum Hydrox 30 Ml Oral.Susp) 30 ml PO Q6H PRN PRN Reason: Heartburn/Nausea Amlodipine Besylate (Amlodipine Besylate 5 Mg Tablet) 5 mg PO DAILY [facility]; Protocol Last Admin: 10/23/22 09:10 Dose: 5 mg Calcium Carbonate/Cholecalciferol (Calcium + Vitamin D 250 Mg Tablet) 500 mg PO DAILY [facility] Last Admin: 10/23/22 09:09 Dose: 500 mg Clonazepam (Clonazepam 0.5 Mg Tablet) 0.5 mg PO BID@0900,1400 [facility] Last Admin: 10/23/22 09:10 Dose: 0.5 mg Clonazepam (Clonazepam 0.5 Mg Tablet) 0.5 mg PO BEDTIME PRN PRN Reason: Insomnia Last Admin: 10/22/22 20:05 Dose: 0.5 mg Clonidine HCl (Clonidine Hcl 0.1 Mg Tablet) 0.1 mg PO Q4H PRN; Protocol PRN Reason: anxiety/insomnia Magnesium Hydroxide (Milk Of Magnesia 30 Ml Oral.Susp) 30 ml PO DAILY PRN PRN Reason: Constipation Mirtazapine (Mirtazapine 7.5 Mg Tablet) 7.5 mg PO BEDTIME [facility] Last Admin: 10/22/22 20:06 Dose: 7.5 mg Multivitamins/Vitamin C (Multivitamin Tablet) 1 tab PO DAILY [facility] Last Admin: 10/23/22 09:09 Dose: 1 tab Nicotine Polacrilex (Nicotine Polacrilex 2 Mg Gum) 2 mg BUCCAL Q2H PRN PRN Reason: Nicotine Cravings Paroxetine HCl (Paroxetine Hcl 20 Mg Tablet) 20 mg PO DAILY [facility] Last Admin: 10/23/22 09:09 Dose: 20 mg Pravastatin Sodium (Pravastatin Sodium 20 Mg Tablet) 20 mg PO BEDTIME [facility] Last Admin: 10/22/22 20:05 Dose: 20 mg Psyllium Hydrophilic Mucilloid (Psyllium Seed 3.4 Gm Powd.Pack) 3.4 gm PO BID [facility] Last Admin: 10/23/22 09:09 Dose: 3.4 gm Vitamin D (Cholecalciferol (Vitamin D3) 25 Mcg Tablet) 125 mcg PO DAILY [facility] Last Admin: 10/23/22 09:09 Dose: 125 mcg Allergies Allergies Allergy/AdvReac Type Severity Reaction Status Date / Time No Known Allergies Allergy Verified 09/07/22 14:18 [No Known Allergies*] Assessment & Plan Assessment & Plan (1) ELIAN (generalized anxiety disorder): Status: Acute Code(s): F41.1 - Generalized anxiety disorder (2) Major depressive disorder: Status: Acute Code(s): F32.9 - Major depressive disorder, single episode, unspecified (3) Panic disorder: Status: Acute Code(s): F41.0 - Panic disorder [episodic paroxysmal anxiety] (4) PTSD (post-traumatic stress disorder): Status: Suspected Code(s): F43.10 - Post-traumatic stress disorder, unspecified Plan Patient is a 67-year-old female with history of MDD, ELIAN with agoraphobia, with 2 recent admissions to [facility] inpatient unit, recently discharged 10/14/2022, who re-presented for worsening anxiety and accidental overdose of Ativan. Patient is tearful and distraught. Recap of history In short, patient was overall stable for about 25 years on Prozac; when that pooped out she was switched to Paxil and stable for 5 years; patient was triggered in August and had a panic attack and ever since then her anxiety has been on bearable. Patient reports when she was last discharged on Lexapro, her anxiety was a little lower however when she went home her anxiety again skyrocketed. She was unable to sleep which triggered worsening anxiety and so she took an Ativan. Because she was still unable to sleep, she took another Ativan and kept taking them, up to 14 pills. Patient said in no way at all was thus a suicide attempt and she denies ever having any active SI in her life, though she does acknowledge that recently, she has sometimes wished she just could crawl into a hole and since her anxiety is so miserable. Patient reports multiple panic attacks throughout the day. She shares that insomnia triggers tremendous anxiety and patient shares some of her history that includes a lot of bad memories around anxiety and insomnia. Patient also was able to potentially make a connection between her history of going up with an alcoholic mother and recently being triggered this past August when on vacation with her alcoholic sister which seems to have opened up a Flood gait of formally repressed emotions. Patient is eager for medication changes. Recap of History: overall stable for about 25 years on Prozac 60mg until it pooped out Started Paxil 40mg and stable for 5 years Patient was triggered into severe panic attack in August 2022 when on vacation with alcoholic sister (likely opening up repressed emotions from growing up w/ alcoholic mother) Outpatient provider increased Paxil to 50 mg however after few days patient found it unbearable, jumping out of her skin and for the 1st time presented for inpatient admission [facility] admission August 2022: Paxil discontinued and patient started on Cymbalta and Seroquel. Discharged home but still anxious, with increased blood pressure, feeling dizzy and with a headache [facility] admission September 2022: Cymbalta/Seroquel discontinued and patient started on Lexapro 20 mg, discharged home. This past week, anxiety unbearable, insomnia and accidentally overtook Ativan Patient now presents for 3rd admission to [facility] October 2022 IMPRESSION: Long history of anxiety, and now depression. Patient may not quite technically criteria for PTSD however she has traumatic memories growing up with her alcoholic mother that have affected her entire life and seem to be driving much of her current decompensation. Patient has never discussed these memories and associated anxieties but was re-triggered into panic this past August when on vacation with her alcoholic sister. It seems that at this time, those repressed traumatic memories were let lose. Patient was stable on Paxil 40 mg. It is possible that Paxil remains partially helpful but was just not enough to hold off this rapid influx of emotion. It seems less likely that Paxil suddenly stop working as it was working fine for 5 years until this 1 event in August. Patient could not tolerate higher dose of Paxil. It is also possible that patient is having some discontinuation syndrome as she has only been on other antidepressants for very short period of time. Patient agrees that she needs therapy to discuss her past. In the short term patient agrees to treating her immediate anxiety with clonazepam and or clonidine; discussed risks/side effects of medications, including her accidental misuse of benzos and patient is okay with restarting and will make a plan for safety if discharged on benzos. Patient also agrees to restart Paxil given possibility of discontinuation syndrome and also that Paxil may be partially helpful. Will also start patient on mirtazapine since she has insomnia (again discussed risks/side effects, patient ask questions and is okay with this medication. Since patient has not seemed to benefit from a either SSRIs or and SNRI, will also consider TCAs. DMS was also discussed. -at this time patient's anxiety is so overwhelming that she cannot function on her own in the community and requires immediate medication management that cannot be done and in outpatient setting. 10/23/2022 Patient has improved some, less anxious and more hopeful. Slept last night. Will increase Paxil. Patient also wants mirtazapine increased but agrees to wait for now. PLAN CV Q 15 minute checks Change to p.r.n. Clonazepam 0.5 b.i.d. Clonazepam 0.5 mg q.h.s. p.r.n. for insomnia Schedule clonidine q.h.s.; also clonidine available as p.r.n. for anxiety Increased to Paxil 30 mg to help treat possible discontinuation syndrome and since Paxil may still be partially helpful; patient was just recently discontinued from Paxil 40 mg which she has been on for 5 years and tolerates quicker titration Continue mirtazapine 7.5 mg q.h.s. Continue other home medications Will get collateral; social work to help with setting up aftercare including therapy Will consider TMS consult Patient educated on: diagnosis, medication risk/benefits and therapeutic strategies Informed Consent: understands Reason for contiued inpatient stay Substantial Risk for: rapid decompensation and med/psych decompensation Time Spent With Patient Time: Total time managing care of this patient today ____ minutes.
[2022-10-23] MEDS: cloNIDine HCL 0.1 MG TABLET PO ×2 (17:16→19:55)
[2022-10-23 18:00] VITALS: BP 137/72; PULSE 73; TEMP 36.8; O2SAT 95
[2022-10-23] MEDS: Mirtazapine 7.5 MG TABLET PO (19:55)
[2022-10-23] MEDS: Pravastatin Sodium 20 MG TABLET PO (19:55)
[2022-10-24] MEDS: amLODIPine Besylate 5 MG TABLET PO (09:05)
[2022-10-24] MEDS: Calcium + Vitamin D 250 MG TABLET 500 MG PO (09:05)
[2022-10-24] MEDS: Cholecalciferol (Vitamin D3) 25 MCG TABLET 125 MCG PO (09:06)
[2022-10-24] MEDS: Multivitamin TABLET 1 TAB PO (09:07)
[2022-10-24] MEDS: PARoxetine HCL 30 MG TABLET PO (09:11)
--- NOTE | 2022-10-24 10:33 | HO.PSYCHPN ---
Subjective Subjective Date of Service: 10/24/22 Reason For Visit: SI Interim History: Patient had much trouble sleeping last night. Today, patient is depressed and hopeless; Exceedingly tearful and Sobbing throughout interview saying just lock me up and asking For a ?sanatorium? to ?commit? her or if Is there some place that she can be locked up forever so that her family never has to worry about her again. Patient repeats this referring over and over.? Patient is able to calm down some and except technical writer and editor's reassurance that all is not lost. ?She agrees to increase in Remeron, going back to scheduling clonazepam and starting Zyprexa. later approached technical writer and editor saying she never before understood the depths of her fear of insomnia; she is not sure why Mental Status Exam Mental Status Exam Narrative: Pt is alert and oriented; behavior is distraught, tearful, sobbing;dressed in casual attire with unkempt hair but adequate hygiene; mood is described as awful and affect congruent,distraught; eye contact appropriate; Speech is normal rate, volume and prosody and not pressured; no psychomotor agitation/retardation present; thought process is organized and goal directed; Thought content on hopelessness of her situation; otherwise pertinent to relevant topics; no delusional content, paranoid ideations or grandiosity; passive wish but no plan/intent; no HI; there is no evidence of perceptual disturbance. Patients insight and judgment are impaired Diagnostics Vital Signs (24Hr): Vital Signs - 24 hr 10/23/22 18:00 Temperature 98.2 F Pulse Rate 73 Blood Pressure 137/72 Pulse Oximetry 95 Oxygen Delivery Method Room Air BMI result Body Mass Index 25.7 Labs 10/21/22 08:15 10/22/22 08:05 Medications Medications Current Medications Acetaminophen (Acetaminophen 325 Mg Tablet) 650 mg PO Q6H PRN PRN Reason: Headache/Pain Mild Scale (1-3) Al Hydroxide/Mg Hydroxide (Magnesium Hydrox/Alum Hydrox 30 Ml Oral.Susp) 30 ml PO Q6H PRN PRN Reason: Heartburn/Nausea Amlodipine Besylate (Amlodipine Besylate 5 Mg Tablet) 5 mg PO DAILY [facility]; Protocol Last Admin: 10/24/22 09:05 Dose: 5 mg Calcium Carbonate/Cholecalciferol (Calcium + Vitamin D 250 Mg Tablet) 500 mg PO DAILY [facility] Last Admin: 10/24/22 09:05 Dose: 500 mg Clonazepam (Clonazepam 0.5 Mg Tablet) 0.5 mg PO BEDTIME PRN PRN Reason: Insomnia Last Admin: 10/23/22 21:57 Dose: 0.5 mg Clonazepam (Clonazepam 0.5 Mg Tablet) 0.5 mg PO BID PRN PRN Reason: anxiety Clonidine HCl (Clonidine Hcl 0.1 Mg Tablet) 0.1 mg PO Q4H PRN; Protocol PRN Reason: anxiety/insomnia Last Admin: 10/23/22 17:16 Dose: 0.1 mg Clonidine HCl (Clonidine Hcl 0.1 Mg Tablet) 0.1 mg PO BEDTIME [facility]; Protocol Last Admin: 10/23/22 19:55 Dose: 0.1 mg Magnesium Hydroxide (Milk Of Magnesia 30 Ml Oral.Susp) 30 ml PO DAILY PRN PRN Reason: Constipation Mirtazapine (Mirtazapine 7.5 Mg Tablet) 7.5 mg PO BEDTIME [facility] Last Admin: 10/23/22 19:55 Dose: 7.5 mg Multivitamins/Vitamin C (Multivitamin Tablet) 1 tab PO DAILY [facility] Last Admin: 10/24/22 09:07 Dose: 1 tab Nicotine Polacrilex (Nicotine Polacrilex 2 Mg Gum) 2 mg BUCCAL Q2H PRN PRN Reason: Nicotine Cravings Paroxetine HCl (Paroxetine Hcl 30 Mg Tablet) 30 mg PO DAILY [facility] Last Admin: 10/24/22 09:11 Dose: 30 mg Pravastatin Sodium (Pravastatin Sodium 20 Mg Tablet) 20 mg PO BEDTIME [facility] Last Admin: 10/23/22 19:55 Dose: 20 mg Psyllium Hydrophilic Mucilloid (Psyllium Seed 3.4 Gm Powd.Pack) 3.4 gm PO BID [facility] Last Admin: 10/24/22 10:27 Dose: 3.4 gm Vitamin D (Cholecalciferol (Vitamin D3) 25 Mcg Tablet) 125 mcg PO DAILY [facility] Last Admin: 10/24/22 09:06 Dose: 125 mcg Allergies Allergies Allergy/AdvReac Type Severity Reaction Status Date / Time No Known Allergies Allergy Verified 09/07/22 14:18 [No Known Allergies*] Assessment & Plan Assessment & Plan (1) ELIAN (generalized anxiety disorder): Status: Acute Code(s): F41.1 - Generalized anxiety disorder (2) Major depressive disorder: Status: Acute Code(s): F32.9 - Major depressive disorder, single episode, unspecified (3) Panic disorder: Status: Acute Code(s): F41.0 - Panic disorder [episodic paroxysmal anxiety] (4) PTSD (post-traumatic stress disorder): Status: Suspected Code(s): F43.10 - Post-traumatic stress disorder, unspecified Plan Patient is a 67-year-old female with history of MDD, ELIAN with agoraphobia, with 2 recent admissions to [facility] inpatient unit, recently discharged 10/14/2022, who re-presented for worsening anxiety and accidental overdose of Ativan. Patient is tearful and distraught. Recap of history In short, patient was overall stable for about 25 years on Prozac; when that pooped out she was switched to Paxil and stable for 5 years; patient was triggered in August and had a panic attack and ever since then her anxiety has been on bearable. Patient reports when she was last discharged on Lexapro, her anxiety was a little lower however when she went home her anxiety again skyrocketed. She was unable to sleep which triggered worsening anxiety and so she took an Ativan. Because she was still unable to sleep, she took another Ativan and kept taking them, up to 14 pills. Patient said in no way at all was thus a suicide attempt and she denies ever having any active SI in her life, though she does acknowledge that recently, she has sometimes wished she just could crawl into a hole and since her anxiety is so miserable. Patient reports multiple panic attacks throughout the day. She shares that insomnia triggers tremendous anxiety and patient shares some of her history that includes a lot of bad memories around anxiety and insomnia. Patient also was able to potentially make a connection between her history of going up with an alcoholic mother and recently being triggered this past August when on vacation with her alcoholic sister which seems to have opened up a Flood gait of formally repressed emotions. Patient is eager for medication changes. Recap of History: overall stable for about 25 years on Prozac 60mg until it pooped out Started Paxil 40mg and stable for 5 years Patient was triggered into severe panic attack in August 2022 when on vacation with alcoholic sister (likely opening up repressed emotions from growing up w/ alcoholic mother) Outpatient provider increased Paxil to 50 mg however after few days patient found it unbearable, jumping out of her skin and for the 1st time presented for inpatient admission [facility] admission August 2022: Paxil discontinued and patient started on Cymbalta and Seroquel. Discharged home but still anxious, with increased blood pressure, feeling dizzy and with a headache [facility] admission September 2022: Cymbalta/Seroquel discontinued and patient started on Lexapro 20 mg, discharged home. This past week, anxiety unbearable, insomnia and accidentally overtook Ativan Patient now presents for 3rd admission to [facility] October 2022 IMPRESSION: Long history of anxiety, and now depression. Patient may not quite technically criteria for PTSD however she has traumatic memories growing up with her alcoholic mother that have affected her entire life and seem to be driving much of her current decompensation. Patient has never discussed these memories and associated anxieties but was re-triggered into panic this past August when on vacation with her alcoholic sister. It seems that at this time, those repressed traumatic memories were let lose. Patient was stable on Paxil 40 mg. It is possible that Paxil remains partially helpful but was just not enough to hold off this rapid influx of emotion. It seems less likely that Paxil suddenly stop working as it was working fine for 5 years until this 1 event in August. Patient could not tolerate higher dose of Paxil. It is also possible that patient is having some discontinuation syndrome as she has only been on other antidepressants for very short period of time. Patient agrees that she needs therapy to discuss her past. In the short term patient agrees to treating her immediate anxiety with clonazepam and or clonidine; discussed risks/side effects of medications, including her accidental misuse of benzos and patient is okay with restarting and will make a plan for safety if discharged on benzos. Patient also agrees to restart Paxil given possibility of discontinuation syndrome and also that Paxil may be partially helpful. Will also start patient on mirtazapine since she has insomnia (again discussed risks/side effects, patient ask questions and is okay with this medication. Since patient has not seemed to benefit from a either SSRIs or and SNRI, will also consider TCAs. DMS was also discussed. -at this time patient's anxiety is so overwhelming that she cannot function on her own in the community and requires immediate medication management that cannot be done and in outpatient setting. 10/23/2022 Patient has improved some, less anxious and more hopeful. Slept last night. Will increase Paxil. Patient also wants mirtazapine increased but agrees to wait for now. 10/24little sleep last night, today patient exceedingly tearful and hopeless depressed.? Agrees to titration of mirtazapine and starting Zyprexa.? Support Assistant asked but patient ?said she did not want to know about risks/side effects of Zyprexa at this time PLAN CV Q 15 minute checks START Zyprexa 2.5mg qhs Change BACK to scheduled Clonazepam 0.5 b.i.d. Clonazepam 0.5 mg q.h.s. p.r.n. for insomnia Schedule clonidine q.h.s.; also clonidine available as p.r.n. for anxiety Increased to Paxil 30 mg to help treat possible discontinuation syndrome and since Paxil may still be partially helpful; patient was just recently discontinued from Paxil 40 mg which she has been on for 5 years and tolerates quicker titration INCREASE mirtazapine 15 mg q.h.s. Continue other home medications Will get collateral; social work to help with setting up aftercare including therapy Will consider TMS consult Patient educated on: diagnosis and medication risk/benefits Informed Consent: understands and further education needed Reason for contiued inpatient stay Substantial Risk for: inability to function Time Spent With Patient Time: Total time managing care of this patient today ____ minutes.
[2022-10-24] MEDS: clonazePAM 1 MG TABLET PO (14:04)
[2022-10-24] MEDS: clonazePAM 0.5 MG TABLET PO (15:27)
[2022-10-24 20:10] VITALS: BP 125/60; PULSE 66; TEMP 37
[2022-10-24] MEDS: Pravastatin Sodium 20 MG TABLET PO (20:13)
[2022-10-24] MEDS: OLANZapine 2.5 MG TABLET PO (20:13)
[2022-10-24] MEDS: cloNIDine HCL 0.1 MG TABLET PO (20:14)
[2022-10-24] MEDS: Mirtazapine 15 MG TABLET PO (20:14)
[2022-10-25 08:31] VITALS: BP 135/69; PULSE 65; RESP 18; TEMP 37; O2SAT 97
[2022-10-25] MEDS: PARoxetine HCL 30 MG TABLET PO (08:33)
[2022-10-25] MEDS: clonazePAM 0.5 MG TABLET PO ×2 (08:33→16:14)
[2022-10-25] MEDS: Calcium + Vitamin D 250 MG TABLET 500 MG PO (08:33)
[2022-10-25] MEDS: amLODIPine Besylate 5 MG TABLET PO (08:34)
[2022-10-25] MEDS: Cholecalciferol (Vitamin D3) 25 MCG TABLET 125 MCG PO (08:34)
[2022-10-25] MEDS: Multivitamin TABLET 1 TAB PO (08:39)
--- NOTE | 2022-10-25 11:01 | P.PNPSI_ITS ---
Subjective Subjective Date of Service: 10/25/22 Reason For Visit: SI Interim History: Patient had a good sleep last night and feels much better today. She is very in treated by how much her worries about not sleeping affect her and send her into dysregulated anxiety. Patient denies any side effects from medications and wants to continue. She was adamant that she does not want to know the risks/side effects of Zyprexa saying that i'm 67 and something will get me eventually...I just rather not know. Patient would like to continue with current regimen and perhaps make clonazepam p.r.n.. Again reviewed challenging automatic thoughts and how to deal with anxiety about issues as that occurs Mental Status Exam Mental Status Exam Narrative: Pt is alert and oriented; behavior calm, cooperative, friendly; dressed in casual attire with unkempt hair but adequate hygiene; mood is described as better and affect congruent, calm and brighter; eye contact appropriate; Speech is normal rate, volume and prosody and not pressured; no psychomotor agitation/retardation present; thought process is organized and goal directed; Thought content on treatment and recovery; otherwise pertinent to relevant topics; no delusional content, paranoid ideations or grandiosity; no SI, no HI, no passive wish; there is no evidence of perceptual disturbance. Patients insight and judgment are impaired but improving. Diagnostics Vital Signs (24Hr): Vital Signs - 24 hr 10/24/22 20:10 10/25/22 08:31 Temperature 98.6 F 98.6 F Pulse Rate 66 65 Respiratory Rate 18 Blood Pressure 125/60 135/69 Pulse Oximetry 97 Oxygen Delivery Method Room Air BMI result Body Mass Index 25.7 Labs 10/21/22 08:15 10/22/22 08:05 Medications Medications Current Medications Acetaminophen (Acetaminophen 325 Mg Tablet) 650 mg PO Q6H PRN PRN Reason: Headache/Pain Mild Scale (1-3) Al Hydroxide/Mg Hydroxide (Magnesium Hydrox/Alum Hydrox 30 Ml Oral.Susp) 30 ml PO Q6H PRN PRN Reason: Heartburn/Nausea Amlodipine Besylate (Amlodipine Besylate 5 Mg Tablet) 5 mg PO DAILY HARESH; Protocol Last Admin: 10/25/22 08:34 Dose: 5 mg Calcium Carbonate/Cholecalciferol (Calcium + Vitamin D 250 Mg Tablet) 500 mg PO DAILY [facility] Last Admin: 10/25/22 08:33 Dose: 500 mg Clonazepam (Clonazepam 0.5 Mg Tablet) 0.5 mg PO BEDTIME PRN PRN Reason: Insomnia Last Admin: 10/23/22 21:57 Dose: 0.5 mg Clonazepam (Clonazepam 0.5 Mg Tablet) 0.5 mg PO BID@0900,1400 [facility] Last Admin: 10/25/22 08:33 Dose: 0.5 mg Clonidine HCl (Clonidine Hcl 0.1 Mg Tablet) 0.1 mg PO Q4H PRN; Protocol PRN Reason: anxiety/insomnia Last Admin: 10/23/22 17:16 Dose: 0.1 mg Clonidine HCl (Clonidine Hcl 0.1 Mg Tablet) 0.1 mg PO BEDTIME HARESH; Protocol Last Admin: 10/24/22 20:14 Dose: 0.1 mg Magnesium Hydroxide (Milk Of Magnesia 30 Ml Oral.Susp) 30 ml PO DAILY PRN PRN Reason: Constipation Mirtazapine (Mirtazapine 15 Mg Tablet) 15 mg PO BEDTIME [facility] Last Admin: 10/24/22 20:14 Dose: 15 mg Multivitamins/Vitamin C (Multivitamin Tablet) 1 tab PO DAILY [facility] Last Admin: 10/25/22 08:39 Dose: 1 tab Nicotine Polacrilex (Nicotine Polacrilex 2 Mg Gum) 2 mg BUCCAL Q2H PRN PRN Reason: Nicotine Cravings Olanzapine (Olanzapine 2.5 Mg Tablet) 2.5 mg PO BEDTIME PRN PRN Reason: CONTINUED INSOMNIA Olanzapine (Olanzapine 2.5 Mg Tablet) 2.5 mg PO BEDTIME [facility] Last Admin: 10/24/22 20:13 Dose: 2.5 mg Paroxetine HCl (Paroxetine Hcl 30 Mg Tablet) 30 mg PO DAILY [facility] Last Admin: 10/25/22 08:33 Dose: 30 mg Pravastatin Sodium (Pravastatin Sodium 20 Mg Tablet) 20 mg PO BEDTIME [facility] Last Admin: 10/24/22 20:13 Dose: 20 mg Psyllium Hydrophilic Mucilloid (Psyllium Seed 3.4 Gm Powd.Pack) 3.4 gm PO BID [facility] Last Admin: 10/25/22 08:35 Dose: 3.4 gm Vitamin D (Cholecalciferol (Vitamin D3) 25 Mcg Tablet) 125 mcg PO DAILY [facility] Last Admin: 10/25/22 08:34 Dose: 125 mcg Allergies Allergies Allergy/AdvReac Type Severity Reaction Status Date / Time No Known Allergies Allergy Verified 09/07/22 14:18 [No Known Allergies*] Assessment & Plan Assessment & Plan (1) ELIAN (generalized anxiety disorder): Status: Acute Code(s): F41.1 - Generalized anxiety disorder (2) Major depressive disorder: Status: Acute Code(s): F32.9 - Major depressive disorder, single episode, unspecified (3) Panic disorder: Status: Acute Code(s): F41.0 - Panic disorder [episodic paroxysmal anxiety] (4) PTSD (post-traumatic stress disorder): Status: Suspected Code(s): F43.10 - Post-traumatic stress disorder, unspecified Plan Patient is a 67-year-old female with history of MDD, ELIAN with agoraphobia, with 2 recent admissions to [place] inpatient unit, recently discharged 10/14/2022, who re-presented for worsening anxiety and accidental overdose of Ativan. Patient is tearful and distraught. Recap of history In short, patient was overall stable for about 25 years on Prozac; when that pooped out she was switched to Paxil and stable for 5 years; patient was triggered in August and had a panic attack and ever since then her anxiety has been on bearable. Patient reports when she was last discharged on Lexapro, her anxiety was a little lower however when she went home her anxiety again skyrocketed. She was unable to sleep which triggered worsening anxiety and so she took an Ativan. Because she was still unable to sleep, she took another Ativan and kept taking them, up to 14 pills. Patient said in no way at all was thus a suicide attempt and she denies ever having any active SI in her life, though she does acknowledge that recently, she has sometimes wished she just could crawl into a hole and since her anxiety is so miserable. Patient reports multiple panic attacks throughout the day. She shares that insomnia triggers tremendous anxiety and patient shares some of her history that includes a lot of bad memories around anxiety and insomnia. Patient also was able to potentially make a connection between her history of going up with an alcoholic mother and recently being triggered this past August when on vacation with her alcoholic sister which s eems to have opened up a Flood gait of formally repressed emotions. Patient is eager for medication changes. Recap of History: overall stable for about 25 years on Prozac 60mg until it pooped out Started Paxil 40mg and stable for 5 years Patient was triggered into severe panic attack in August 2022 when on vacation with alcoholic sister (likely opening up repressed emotions from growing up w/ alcoholic mother) Outpatient provider increased Paxil to 50 mg however after few days patient f ound it unbearable, jumping out of her skin and for the 1st time presented for inpatient admission [place] admission August 2022: Paxil discontinued and patient started on Cymbalta and Seroquel. Discharged home but still anxious, with increased blood pressure, feeling dizzy and with a headache [place] admission September 2022: Cymbalta/Seroquel discontinued and patient started on Lexapro 20 mg, discharged home. This past week, anxiety unbearable, insomnia and accidentally overtook Ativan Patient now presents for 3rd admission to [facility] October 2022 IMPRESSION: Long history of anxiety, and now depression. Patient may not quite technically criteria for PTSD however she has traumatic memories growing up with her alcoholic mother that have affected her entire life and seem to be driving much of her current decompensation. Patient has never discussed these memories and associated anxieties but was re-triggered into panic this past August when on vacation with her alcoholic sister. It seems that at this time, those repressed traumatic memories were let lose. Patient was stable on Paxil 40 mg. It is possible that Paxil remains partially helpful but was just not enough to hold off this rapid influx of emotion. It seems less likely that Paxil suddenly stop working as it was working fine for 5 years until this 1 event in August. Patient could not tolerate higher dose of Paxil. It is also possible that patient is having some discontinuation syndrome as she has only been on other antidepressants for very short period of time. Patient agrees that she needs therapy to discuss her past. In the short term patient agrees to treating her immediate anxiety with clonazepam and or clonidine; discussed risks/side effects of medications, including her accidental misuse of benzos and patient is okay with restarting and will make a plan for safety if discharged on benzos. Patient also agrees to restart Paxil given possibility of discontinuation syndrome and also that Paxil may be partially helpful. Will also start patient on mirtazapine since she has insomnia (again discussed risks/side effects, patient ask questions and is okay with this medication. Since patient has not seemed to benefit from a either SSRIs or and SNRI, will also consider TCAs. DMS was also discussed. -at this time patient's anxiety is so overwhelming that she cannot function on her own in the community and requires immediate medication management that cannot be done and in outpatient setting. 10/23/2022 Patient has improved some, less anxious and more hopeful. Slept last night. W ill increase Paxil. Patient also wants mirtazapine increased but agrees to wait for now. 10/24little sleep last night, today patient exceedingly tearful and hopeless depressed.? Agrees to titration of mirtazapine and starting Zyprexa.? Machine Cl[employer] Measurer asked but patient ?said she did not want to know about risks/side effects of Zyprexa at this time 10/25 patient slept well last night and feels much better. She is much more in tune with how dysregulated she gets at the thought of not sleeping and wants to explore it more. She likes medication regimen and does not want to change it other than clonazepam as a p.r.n. instead. Since patient is so up and down, she needs to remain on the unit to continue to demonstrate stability over the next few days PLAN CV Q 15 minute checks Continue Zyprexa 2.5mg qhs Make p.r.n. Clonazepam 0.5 b.i.d. p.r.n. Clonazepam 0.5 mg q.h.s. p.r.n. for insomnia Schedule clonidine q.h.s.; also clonidine available as p.r.n. for anxiety Increased to Paxil 30 mg to help treat possible discontinuation syndrome and since Paxil may still be partially helpful; patient was just recently discontinued from Paxil 40 mg which she has been on for 5 years and tolerates quicker titration INCREASE mirtazapine 15 mg q.h.s. Continue other home medications Will get collateral; social work to help with setting up aftercare including therapy Will consider TMS consult Patient educated on: diagnosis, medication risk/benefits and therapeutic strateg ies Informed Consent: understands Reason for contiued inpatient stay Substantial Risk for: rapid decompensation Time Spent With Patient Time: Total time managing care of this patient today ____ minutes.
[2022-10-25 19:55] VITALS: BP 131/78; PULSE 68; TEMP 35.9
[2022-10-25] MEDS: OLANZapine 2.5 MG TABLET PO (19:57)
[2022-10-25] MEDS: Pravastatin Sodium 20 MG TABLET PO (19:57)
[2022-10-25] MEDS: cloNIDine HCL 0.1 MG TABLET PO (19:58)
[2022-10-25] MEDS: Mirtazapine 15 MG TABLET PO (19:58)
[2022-10-26 06:00] VITALS: BP 144/80; PULSE 70; RESP 18; O2SAT 98
[2022-10-26] MEDS: Cholecalciferol (Vitamin D3) 25 MCG TABLET 125 MCG PO (08:42)
[2022-10-26] MEDS: Calcium + Vitamin D 250 MG TABLET 500 MG PO (08:42)
[2022-10-26] MEDS: PARoxetine HCL 30 MG TABLET PO (08:42)
[2022-10-26] MEDS: Multivitamin TABLET 1 TAB PO (08:42)
[2022-10-26] MEDS: amLODIPine Besylate 5 MG TABLET PO (08:42)
--- NOTE | 2022-10-26 14:55 | HO.PSYCHPN ---
Subjective Subjective Date of Service: 10/26/22 Reason For Visit: SI Interim History: Late entry note for patient seen on 10/26 Patient reports another good night sleep and feeling much better. Anxiety is much lower and she feels she is able to cope with that without clonazepam. Will just try clonidine instead. Discussed medication regimen and how to proceed. She agrees for now to remain on current doses and see how she does. [facility] that medications can be adjusted there if need be. Mental Status Exam Mental Status Exam Narrative: Pt is alert and oriented; behavior calm, cooperative, friendly; dressed in casual attire with unkempt hair but adequate hygiene; mood is described as better and affect congruent, calm and brighter; eye contact appropriate; Speech is normal rate, volume and prosody and not pressured; no psychomotor agitation/retardation present; thought process is organized and goal directed; Thought content on treatment and recovery; otherwise pertinent to relevant topics; no delusional content, paranoid ideations or grandiosity; no SI, no HI, no passive wish; there is no evidence of perceptual disturbance. Patients insight and judgment are impaired but improving. Diagnostics Vital Signs (24Hr): Vital Signs - 24 hr 10/26/22 18:00 10/27/22 08:25 Temperature 98.2 F 98.9 F Pulse Rate 83 59 Respiratory Rate 18 Blood Pressure 144/67 H 132/71 Pulse Oximetry 98 95 Oxygen Delivery Method Room Air Room Air BMI result Body Mass Index 25.7 Labs 10/21/22 08:15 10/22/22 08:05 Medications Medications Current Medications Acetaminophen (Acetaminophen 325 Mg Tablet) 650 mg PO Q6H PRN PRN Reason: Headache/Pain Mild Scale (1-3) Al Hydroxide/Mg Hydroxide (Magnesium Hydrox/Alum Hydrox 30 Ml Oral.Susp) 30 ml PO Q6H PRN PRN Reason: Heartburn/Nausea Amlodipine Besylate (Amlodipine Besylate 5 Mg Tablet) 5 mg PO DAILY [facility]ESH; Protocol Last Admin: 10/27/22 08:58 Dose: 5 mg Calcium Carbonate/Cholecalciferol (Calcium + Vitamin D 250 Mg Tablet) 500 mg PO DAILY [facility] Last Admin: 10/27/22 08:57 Dose: 500 mg Clonazepam (Clonazepam 0.5 Mg Tablet) 0.5 mg PO BEDTIME PRN PRN Reason: Insomnia Last Admin: 10/26/22 21:21 Dose: 0.5 mg Clonidine HCl (Clonidine Hcl 0.1 Mg Tablet) 0.1 mg PO Q4H PRN; Protocol PRN Reason: anxiety/insomnia Last Admin: 10/26/22 15:57 Dose: 0.1 mg Clonidine HCl (Clonidine Hcl 0.1 Mg Tablet) 0.1 mg PO BEDTIME [facility]; Protocol Last Admin: 10/26/22 20:14 Dose: 0.1 mg Magnesium Hydroxide (Milk Of Magnesia 30 Ml Oral.Susp) 30 ml PO DAILY PRN PRN Reason: Constipation Mirtazapine (Mirtazapine 15 Mg Tablet) 15 mg PO BEDTIME [facility] Last Admin: 10/26/22 20:14 Dose: 15 mg Multivitamins/Vitamin C (Multivitamin Tablet) 1 tab PO DAILY [facility] Last Admin: 10/27/22 08:58 Dose: 1 tab Nicotine Polacrilex (Nicotine Polacrilex 2 Mg Gum) 2 mg BUCCAL Q2H PRN PRN Reason: Nicotine Cravings Olanzapine (Olanzapine 2.5 Mg Tablet) 2.5 mg PO BEDTIME PRN PRN Reason: CONTINUED INSOMNIA Last Admin: 10/26/22 21:21 Dose: 2.5 mg Olanzapine (Olanzapine 2.5 Mg Tablet) 2.5 mg PO BEDTIME [facility] Last Admin: 10/26/22 20:14 Dose: 2.5 mg Paroxetine HCl (Paroxetine Hcl 30 Mg Tablet) 30 mg PO DAILY [facility] Last Admin: 10/27/22 08:57 Dose: 30 mg Pravastatin Sodium (Pravastatin Sodium 20 Mg Tablet) 20 mg PO BEDTIME [facility] Last Admin: 10/26/22 20:14 Dose: 20 mg Psyllium Hydrophilic Mucilloid (Psyllium Seed 3.4 Gm Powd.Pack) 3.4 gm PO BID [facility] Last Admin: 10/27/22 08:58 Dose: 3.4 gm Vitamin D (Cholecalciferol (Vitamin D3) 25 Mcg Tablet) 125 mcg PO DAILY [facility] Last Admin: 10/27/22 08:57 Dose: 125 mcg Allergies Allergies Allergy/AdvReac Type Severity Reaction Status Date / Time No Known Allergies Allergy Verified 09/07/22 14:18 [No Known Allergies*] Assessment & Plan Assessment & Plan (1) ELIAN (generalized anxiety disorder): Status: Acute Code(s): F41.1 - Generalized anxiety disorder (2) Major depressive disorder: Status: Acute Code(s): F32.9 - Major depressive disorder, single episode, unspecified (3) Panic disorder: Status: Acute Code(s): F41.0 - Panic disorder [episodic paroxysmal anxiety] (4) PTSD (post-traumatic stress disorder): Status: Suspected Code(s): F43.10 - Post-traumatic stress disorder, unspecified Plan Patient is a 67-year-old female with history of MDD, ELIAN with agoraphobia, with 2 recent admissions to [place] inpatient unit, recently discharged 10/14/2022, who re-presented for worsening anxiety and accidental overdose of Ativan. Patient is tearful and distraught. Recap of history In short, patient was overall stable for about 25 years on Prozac; when that pooped out she was switched to Paxil and stable for 5 years; patient was triggered in August and had a panic attack and ever since then her anxiety has been on bearable. Patient reports when she was last discharged on Lexapro, her anxiety was a little lower however when she went home her anxiety again skyrocketed. She was unable to sleep which triggered worsening anxiety and so she took an Ativan. Because she was still unable to sleep, she took another Ativan and kept taking them, up to 14 pills. Patient said in no way at all was thus a suicide attempt and she denies ever having any active SI in her life, though she does acknowledge that recently, she has sometimes wished she just could crawl into a hole and since her anxiety is so miserable. Patient reports multiple panic attacks throughout the day. She shares that insomnia triggers tremendous anxiety and patient shares some of her history that includes a lot of bad memories around anxiety and insomnia. Patient also was able to potentially make a connection between her history of going up with an alcoholic mother and recently being triggered this past August when on vacation with her alcoholic sister which seems to have opened up a Flood gait of formally repressed emotions. Patient is eager for medication changes. Recap of History: overall stable for about 25 years on Prozac 60mg until it pooped out Started Paxil 40mg and stable for 5 years Patient was triggered into severe panic attack in August 2022 when on vacation with alcoholic sister (likely opening up repressed emotions from growing up w/ alcoholic mother) Outpatient provider increased Paxil to 50 mg however after few days patient found it unbearable, jumping out of her skin and for the 1st time presented for inpatient admission [place] admission August 2022: Paxil discontinued and patient started on Cymbalta and Seroquel. Discharged home but still anxious, with increased blood pressure, feeling dizzy and with a headache [place] admission September 2022: Cymbalta/Seroquel discontinued and patient started on Lexapro 20 mg, discharged home. This past week, anxiety unbearable, insomnia and accidentally overtook Ativan Patient now presents for 3rd admission to [facility] October 2022 IMPRESSION: Long history of anxiety, and now depression. Patient may not quite technically criteria for PTSD however she has traumatic memories growing up with her alcoholic mother that have affected her entire life and seem to be driving much of her current decompensation. Patient has never discussed these memories and associated anxieties but was re-triggered into panic this past August when on vacation with her alcoholic sister. It seems that at this time, those repressed traumatic memories were let lose. Patient was stable on Paxil 40 mg. It is possible that Paxil remains partially helpful but was just not enough to hold off this rapid influx of emotion. It seems less likely that Paxil suddenly stop working as it was working fine for 5 years until this 1 event in August. Patient could not tolerate higher dose of Paxil. It is also possible that patient is having some discontinuation syndrome as she has only been on other antidepressants for very short period of time. Patient agrees that she needs therapy to discuss her past. In the short term patient agrees to treating her immediate anxiety with clonazepam and or clonidine; discussed risks/side effects of medications, including her accidental misuse of benzos and patient is okay with restarting and will make a plan for safety if discharged on benzos. Patient also agrees to restart Paxil given possibility of discontinuation syndrome and also that Paxil may be partially helpful. Will also start patient on mirtazapine since she has insomnia (again discussed risks/side effects, patient ask questions and is okay with this medication. Since patient has not seemed to benefit from a either SSRIs or and SNRI, will also consider TCAs. DMS was also discussed. -at this time patient's anxiety is so overwhelming that she cannot function on her own in the community and requires immediate medication management that cannot be done and in outpatient setting. 10/23/2022 Patient has improved some, less anxious and more hopeful. Slept last night. Will increase Paxil. Patient also wants mirtazapine increased but agrees to wait for now. 10/24little sleep last night, today patient exceedingly tearful and hopeless depressed.? Agrees to titration of mirtazapine and starting Zyprexa.? Director Of Epidemiology asked but patient ?said she did not want to know about risks/side effects of Zyprexa at this time 10/25 patient slept well last night and feels much better. She is much more in tune with how dysregulated she gets at the thought of not sleeping and wants to explore it more. She likes medication regimen and does not want to change it other than clonazepam as a p.r.n. instead. Since patient is so up and down, she needs to remain on the unit to continue to demonstrate stability over the next few days 10/26 another good day in good night sleep last night. Feeling better. Agrees to continue with medication regimen as it is for now. Will continue to monitor but if patient remains stable will proceed with discharge. Plan is for partial day program afterwards PLAN CV Q 15 minute checks Continue Zyprexa 2.5mg qhs Make p.r.n. Clonazepam 0.5 b.i.d. p.r.n. Clonazepam 0.5 mg q.h.s. p.r.n. for insomnia Schedule clonidine q.h.s.; also clonidine available as p.r.n. for anxiety Increased to Paxil 30 mg to help treat possible discontinuation syndrome and since Paxil may still be partially helpful; patient was just recently discontinued from Paxil 40 mg which she has been on for 5 years and tolerates quicker titration INCREASE mirtazapine 15 mg q.h.s. Continue other home medications Will get collateral; social work to help with setting up aftercare including therapy Will consider TMS consult Patient educated on: diagnosis, medication risk/benefits and therapeutic strategies Reason for contiued inpatient stay Substantial Risk for: rapid decompensation Time Spent With Patient Time: Total time managing care of this patient today ____ minutes.
[2022-10-26] MEDS: cloNIDine HCL 0.1 MG TABLET PO ×2 (15:57→20:14)
[2022-10-26 18:00] VITALS: BP 144/67; PULSE 83; TEMP 36.8; O2SAT 98
[2022-10-26] MEDS: OLANZapine 2.5 MG TABLET PO ×2 (20:14→21:21)
[2022-10-26] MEDS: Mirtazapine 15 MG TABLET PO (20:14)
[2022-10-26] MEDS: Pravastatin Sodium 20 MG TABLET PO (20:14)
[2022-10-26] MEDS: clonazePAM 0.5 MG TABLET PO (21:21)
[2022-10-27 08:25] VITALS: BP 132/71; PULSE 59; RESP 18; TEMP 37.2; O2SAT 95
[2022-10-27] MEDS: PARoxetine HCL 30 MG TABLET PO (08:57)
[2022-10-27] MEDS: Cholecalciferol (Vitamin D3) 25 MCG TABLET 125 MCG PO (08:57)
[2022-10-27] MEDS: Calcium + Vitamin D 250 MG TABLET 500 MG PO (08:57)
[2022-10-27] MEDS: amLODIPine Besylate 5 MG TABLET PO (08:58)
[2022-10-27] MEDS: Multivitamin TABLET 1 TAB PO (08:58)
[2022-10-27] MEDS: cloNIDine HCL 0.1 MG TABLET PO ×2 (15:58→19:56)
--- NOTE | 2022-10-27 17:35 | P.PNPSI_ITS ---
Subjective Subjective Date of Service: 10/27/22 Reason For Visit: SI Interim History: Patient reports good mood and that anxiety remains under good control. She did sleep as well last night however did not get overly anxious about it. Patient likes current regimen wants to remain on it. She feels ready for discharge especially since she will be attending [facility] hospital could have further medication adjustments if needed. Financial Reserve Clerk reviewed medications with patient who fully understands. She is going to give her clonazepam medication to her for safe keeping given her history of accidental overdose. Mental Status Exam Mental Status Exam Narrative: Pt is alert and oriented; behavior calm, cooperative, friendly; dressed in casual attire with brushed hair and adequate hygiene; mood is described as good and affect congruent, calm and brighter; eye contact appropriate; Speech is normal rate, volume and prosody and not pressured; no psychomotor agitation/r etardation present; thought process is organized and goal directed; Thought content on treatment and recovery; otherwise pertinent to relevant topics; no delusional content, paranoid ideations or grandiosity; no SI, no HI, no passive wish; there is no evidence of perceptual disturbance. Patients insight and judgment are good. Diagnostics Vital Signs (24Hr): Vital Signs - 24 hr 10/26/22 18:00 10/27/22 08:25 Temperature 98.2 F 98.9 F Pulse Rate 83 59 Respiratory Rate 18 Blood Pressure 144/67 H 132/71 Pulse Oximetry 98 95 Oxygen Delivery Method Room Air Room Air BMI result Body Mass Index 25.7 Labs 10/21/22 08:15 10/22/22 08:05 Medications Medications Current Medications Acetaminophen (Acetaminophen 325 Mg Tablet) 650 mg PO Q6H PRN PRN Reason: Headache/Pain Mild Scale (1-3) Al Hydroxide/Mg Hydroxide (Magnesium Hydrox/Alum Hydrox 30 Ml Oral.Susp) 30 ml PO Q6H PRN PRN Reason: Heartburn/Nausea Amlodipine Besylate (Amlodipine Besylate 5 Mg Tablet) 5 mg PO DAILY HARESH; Protocol Last Admin: 10/27/22 08:58 Dose: 5 mg Calcium Carbonate/Cholecalciferol (Calcium + Vitamin D 250 Mg Tablet) 500 mg PO DAILY HARESH Last Admin: 10/27/22 08:57 Dose: 500 mg Clonazepam (Clonazepam 0.5 Mg Tablet) 0.5 mg PO BEDTIME PRN PRN Reason: Insomnia Last Admin: 10/26/22 21:21 Dose: 0.5 mg Clonidine HCl (Clonidine Hcl 0.1 Mg Tablet) 0.1 mg PO Q4H PRN; Protocol PRN Reason: anxiety/insomnia Last Admin: 10/27/22 15:58 Dose: 0.1 mg Clonidine HCl (Clonidine Hcl 0.1 Mg Tablet) 0.1 mg PO BEDTIME HARESH; Protocol Last Admin: 10/26/22 20:14 Dose: 0.1 mg Magnesium Hydroxide (Milk Of Magnesia 30 Ml Oral.Susp) 30 ml PO DAILY PRN PRN Reason: Constipation Mirtazapine (Mirtazapine 15 Mg Tablet) 15 mg PO BEDTIME HARESH Last Admin: 10/26/22 20:14 Dose: 15 mg Multivitamins/Vitamin C (Multivitamin Tablet) 1 tab PO DAILY HARESH Last Admin: 10/27/22 08:58 Dose: 1 tab Nicotine Polacrilex (Nicotine Polacrilex 2 Mg Gum) 2 mg BUCCAL Q2H PRN PRN Reason: Nicotine Cravings Olanzapine (Olanzapine 2.5 Mg Tablet) 2.5 mg PO BEDTIME PRN PRN Reason: CONTINUED INSOMNIA Last Admin: 10/26/22 21:21 Dose: 2.5 mg Olanzapine (Olanzapine 2.5 Mg Tablet) 2.5 mg PO BEDTIME HARESH Last Admin: 10/26/22 20:14 Dose: 2.5 mg Paroxetine HCl (Paroxetine Hcl 30 Mg Tablet) 30 mg PO DAILY HARESH Last Admin: 10/27/22 08:57 Dose: 30 mg Pravastatin Sodium (Pravastatin Sodium 20 Mg Tablet) 20 mg PO BEDTIME HARESH Last Admin: 10/26/22 20:14 Dose: 20 mg Psyllium Hydrophilic Mucilloid (Psyllium Seed 3.4 Gm Powd.Pack) 3.4 gm PO BID HARESH Last Admin: 10/27/22 08:58 Dose: 3.4 gm Vitamin D (Cholecalciferol (Vitamin D3) 25 Mcg Tablet) 125 mcg PO DAILY HARESH Last Admin: 10/27/22 08:57 Dose: 125 mcg Allergies Allergies Allergy/AdvReac Type Severity Reaction Status Date / Time No Known Allergies Allergy Verified 09/07/22 14:18 [No Known Allergies*] Assessment & Plan Assessment & Plan (1) PTSD (post-traumatic stress disorder): Status: Suspected Code(s): F43.10 - Post-traumatic stress disorder, unspecified (2) ELIAN (generalized anxiety disorder): Status: Acute Code(s): F41.1 - Generalized anxiety disorder (3) Major depressive disorder: Status: Acute Code(s): F32.9 - Major depressive disorder, single episode, unspecified (4) Panic disorder: Status: Acute Code(s): F41.0 - Panic disorder [episodic paroxysmal anxiety] Plan Patient is a 67-year-old female with history of MDD, ELIAN with agoraphobia, with 2 recent admissions to [facility] inpatient unit, recently discharged 10/14/2022, who re-presented for worsening anxiety and accidental overdose of Ativan. Patient is tearful and distraught. Recap of history In short, patient was overall stable for about 25 years on Prozac; when that pooped out she was switched to Paxil and stable for 5 years; patient was triggered in August and had a panic attack and ever since then her anxiety has been on bearable. Patient reports when she was last discharged on Lexapro, her anxiety was a little lower however when she went home her anxiety again skyrocketed. She was unable to sleep which triggered worsening anxiety and so she took an Ativan. Because she was still unable to sleep, she took another Ativan and kept taking them, up to 14 pills. Patient said in no way at all was thus a suicide attempt and she denies ever having any active SI in her life, though she does acknowledge that recently, she has sometimes wished she just could crawl into a hole and since her anxiety is so miserable. Patient reports multiple panic attacks throughout the day. She shares that insomnia triggers tremendous anxiety and patient shares some of her history that includes a lot of bad memories around anxiety and insomnia. Patient also was able to potentially make a connection between her history of going up with an alcoholic mother and recently being triggered this past August when on vacation with her alcoholic sister which seems to have opened up a Flood gait of formally repressed emotions. Patient is eager for medication changes. Recap of History: overall stable for about 25 years on Prozac 60mg until it pooped out Started Paxil 40mg and stable for 5 years Patient was triggered into severe panic attack in August 2022 when on vacation with alcoholic sister (likely opening up repressed emotions from growing up w/ alcoholic mother) Outpatient provider increased Paxil to 50 mg however after few days patient found it unbearable, jumping out of her skin and for the 1st time presented for inpatient admission [facility] admission August 2022: Paxil discontinued and patient started on Cymbalta and Seroquel. Discharged home but still anxious, with increased blood pressure, feeling dizzy and with a headache [facility] admission September 2022: Cymbalta/Seroquel discontinued and patient started on Lexapro 20 mg, discharged home. This past week, anxiety unbearable, insomnia and accidentally overtook Ativan Patient now presents for 3rd admission to [facility] October 2022 IMPRESSION: Long history of anxiety, and now depression. Patient may not quite technically criteria for PTSD however she has traumatic memories growing up with her alcoholic mother that have affected her entire life and seem to be driving much of her current decompensation. Patient has never discussed these memories and associated anxieties but was re-triggered into panic this past August when on vacation with her alcoholic sister. It seems that at this time, those repressed traumatic memories were let lose. Patient was stable on Paxil 40 mg. It is possible that Paxil remains partially helpful but was just not enough to hold off this rapid influx of emotion. It seems less likely that Paxil suddenly stop working as it was working fine for 5 years until this 1 event in August. Patient could not tolerate higher dose of Paxil. It is also possible that patient is having some discontinuation syndrome as she has only been on other antidepressants for very short period of time. Patient agrees that she needs therapy to discuss her past. In the short term patient agrees to treating her immediate anxiety with clonazepam and or clonidine; discussed risks/side effects of medications, including her accidental misuse of benzos and patient is okay with restarting and will make a plan for safety if discharged on benzos. Patient also agrees to restart Paxil given possibility of discontinuation syndrome and also that Paxil may be partially helpful. Will also start patient on mirtazapine since she has insomnia (again discussed risks/side effects, patient ask questions and is okay with this medication. Since patient has not seemed to benefit from a either SSRIs or and SNRI, will also consider TCAs. DMS was also discussed. -at this time patient's anxiety is so overwhelming that she cannot function on her own in the community and requires immediate medication management that can not be done and in outpatient setting. 10/23/2022 Patient has improved some, less anxious and more hopeful. Slept last night. Will increase Paxil. Patient also wants mirtazapine increased but agrees to wait for now. 10/24little sleep last night, today patient exceedingly tearful and hopeless depressed.? Agrees to titration of mirtazapine and starting Zyprexa.? Financial Reserve Clerk asked but patient ?said she did not want to know about risks/side effects of Zyprexa at this time 10/25 patient slept well last night and feels much better. She is much more in tune with how dysregulated she gets at the thought of not sleeping and wants to explore it more. She likes medication regimen and does not want to change it other than clonazepam as a p.r.n. instead. Since patient is so up and down, she needs to remain on the unit to continue to demonstrate stability over the next few days 10/26 another good day in good night sleep last night. Feeling better. Agrees to continue with medication regimen as it is for now. Will continue to monitor but if patient remains stable will proceed with discharge. Plan is for partial day program afterwards 10/27 continues to do well, good mood, anxiety under control; likes current medication regimen and is without any side effects. Reviewed medications with patient who wants to remain on them. She feels ready for discharge and is eager to attend partial program; also eager to engage in outpatient therapy. Patient is without any SI or passive wish, feeling stable and back to her regular self. Patient's overdose with benzo's was accidental and her will be holding on to benzos for her. She returns home to live with her supportive . Patient will also have partial program which she will attend this week which will help with transitioning home. While patient remains vulnerable to decompensation, she has made considerable strides in making connections between past trauma and current struggles with anxiety, something she has never done before and which has been instrumental in getting her thoughts and feelings under control. Patient has remained in good behavioral and impulse control and is not in imminent risk of harm to self or others. She is appropriate to continue treatment in the community. - discussed case with team, met with patient; met and spoke with patient's daughter and discussed treatment PLAN CV Q 15 minute checks Continue Zyprexa 2.5mg qhs Make p.r.n. Clonazepam 0.5 b.i.d. p.r.n. Clonazepam 0.5 mg q.h.s. p.r.n. for insomnia Schedule clonidine q.h.s.; also clonidine available as p.r.n. for anxiety Increased to Paxil 30 mg to help treat possible discontinuation syndrome and since Paxil may still be partially helpful; patient was just recently discontinued from Paxil 40 mg which she has been on for 5 years and tolerates quicker titration INCREASE mirtazapine 15 mg q.h.s. Continue other home medications Will get collateral; social work to help with setting up aftercare including therapy Will consider TMS consult Patient educated on: diagnosis, medication risk/benefits and therapeutic strategies Informed Consent: understands Reason for contiued inpatient stay Substantial Risk for: stable for discharge Time Spent With Patient Time: Total time managing care of this patient today ____ minutes.
[2022-10-27 17:39] VITALS: BP 140/67; PULSE 68; RESP 16; TEMP 36.8; O2SAT 98
[2022-10-27] MEDS: OLANZapine 2.5 MG TABLET PO (19:56)
[2022-10-27] MEDS: Pravastatin Sodium 20 MG TABLET PO (19:56)
[2022-10-27] MEDS: Mirtazapine 15 MG TABLET PO (19:56)
[2022-10-27] MEDS: clonazePAM 0.5 MG TABLET PO (20:13)
[2022-10-28 08:00] VITALS: BP 144/68; PULSE 61; RESP 18; TEMP 36.2; O2SAT 95
--- NOTE | 2022-10-28 09:00 | PM.PSYDC ---
DS: Providers Provider Date of Service: 10/28/22 Date of admission: 10/21/22 23:50 Date of discharge: 10/28/22 Primary care physician: JENNIE Rosales Attending physician on admission: Ryan Bhardwaj Attending physician on discharge: Ryan Bhardwaj DS: Diagnosis Discharge Diagnosis (1) PTSD (post-traumatic stress disorder): Status: Suspected (2) ELIAN (generalized anxiety disorder): Status: Acute (3) Major depressive disorder: Status: Acute (4) Panic disorder: Status: Acute DS: Medications Discharge Medications Home Medications: Previous Rx's Medication Instructions Recorded Bifidobacterium infantis 4 mg 4 mg PO DAILY 30 days #30 caps 09/24/22 capsule (Align) alendronate 70 mg tablet (Fosamax) 70 mg PO QWEEK 90 days #13 tabs 09/24/22 amlodipine 5 mg tablet (Norvasc) 5 mg PO DAILY 30 days #30 tabs 09/24/22 methylcellulose (laxative) 500 mg 1,000 mg PO BID constipation 30 09/24/22 tablet (Citrucel) days #120 tabs multivitamin 1 tab PO DAILY #30 tabs 09/24/22 pravastatin 20 mg tablet 20 mg PO DAILY #30 caps 09/24/22 calcium carbonate 600 mg calcium 1,200 mg PO DAILY 30 days #60 tabs 10/23/22 (1,500 mg) tablet (Calcium) cholecalciferol (vitamin D3) 125 125 mcg PO DAILY 30 days #30 tabs 10/23/22 mcg (5,000 unit) tablet (Vitamin D3) clonazepam 0.5 mg tablet 0.5 mg PO DAILY PRN 10/28/22 anxiety/insomnia 30 days #30 tabs clonidine HCl 0.1 mg tablet 0.1 mg PO Q4H PRN anxiety/insomnia 10/28/22 30 days #90 tabs mirtazapine 15 mg tablet 15 mg PO BEDTIME 30 days #30 tabs 10/28/22 olanzapine 2.5 mg tablet See Rx Instructions .Route 10/28/22 .COMPLEX #60 tabs paroxetine HCl 30 mg tablet 30 mg PO DAILY 30 days #30 tabs 10/28/22 Mental Status Exam Mental Status Exam Narrative: Pt is alert and oriented; behavior calm, cooperative, friendly; dressed in casual attire with brushed hair and adequate hygiene; mood is described as good and affect congruent, calm and brighter; eye contact appropriate; Speech is normal rate, volume and prosody and not pressured; no psychomotor agitation/retardation present; thought process is organized and goal directed; Thought content on treatment and recovery; otherwise pertinent to relevant topics; no delusional content, paranoid ideations or grandiosity; no SI, no HI, no passive wish; there is no evidence of perceptual disturbance. Patients insight and judgment are good. Data Data Completed and Pending Completed studies during hospitalization [Text1]: 10/21/22 10/21/22 10/21/22 08:43 11:20 13:59 Sodium Potassium Chloride Carbon Dioxide Anion Gap BUN Creatinine Estim Creat Clear Calc Estimated GFR Fasting Glucose Estimat Average Glucose Hemoglobin A1c % Calcium Magnesium 2.1 Total Bilirubin 0.6 Direct Bilirubin 0.2 AST 15 ALT 21 Alkaline Phosphatase 46 Total Protein 7.2 Albumin 4.4 Triglycerides Cholesterol LDL Cholesterol, Calc HDL Cholesterol Vitamin B12 Folate TSH Salicylates < 5.0 L Urine Opiates Screen Not Detected Urine Fentanyl Screen Not Detected Acetaminophen < 1 Ur Barbiturates Screen Not Detected Ur Phencyclidine Scrn Not Detected Ur Amphetamines Screen Not Detected U Benzodiazepines Scrn Not Detected Urine Cocaine Screen Not Detected U Marijuana (THC) Screen Not Detected Ethyl Alcohol < 10 10/22/22 10/22/22 10/22/22 08:05 08:05 08:05 Sodium 142 Potassium 4.8 Chloride 105 Carbon Dioxide 28 Anion Gap 14 BUN 15 Creatinine 0.70 Estim Creat Clear Calc 79.6 Estimated GFR > 60 Fasting Glucose 99 Estimat Average Glucose 108 Hemoglobin A1c % 5.4 Calcium 9.6 Magnesium Total Bilirubin 0.9 Direct Bilirubin 0.2 AST 15 ALT 20 Alkaline Phosphatase 50 Total Protein 7.4 Albumin 4.5 Triglycerides 148 Cholesterol 181 LDL Cholesterol, Calc 115 HDL Cholesterol 37 Vitamin B12 483 Folate 15.9 TSH 1.87 Salicylates Urine Opiates Screen Urine Fentanyl Screen Acetaminophen Ur Barbiturates Screen Ur Phencyclidine Scrn Ur Amphetamines Screen U Benzodiazepines Scrn Urine Cocaine Screen U Marijuana (THC) Screen Ethyl Alcohol DS: Summary Hospital Course Hospital Course: Patient is a 67-year-old female with history of MDD, ELIAN with agoraphobia, with 2 recent admissions to [facility] inpatient unit, recently discharged 10/14/2022, who re-presented for worsening anxiety and accidental overdose of Ativan.? Patient is tearful and distraught.? Recap of history In short, patient was overall stable for about 25 years on Prozac; when that pooped out she was switched to Paxil and stable for 5 years; patient was triggered in August and had a panic attack and ever since then her anxiety has been on bearable. Patient reports when she was last discharged on Lexapro, her anxiety was a little lower however when she went home her anxiety again skyrocketed.? She was unable to sleep which triggered worsening anxiety and so she took an Ativan.? Because she was still unable to sleep, she took another Ativan and kept taking them, up to 14 pills.? Patient said in no way at all was thus a suicide attempt and she denies ever having any active SI in her life, though she does acknowledge that recently, she has sometimes wished she just could crawl into a hole and since her anxiety is so miserable.? Patient reports multiple panic attacks throughout the day.? She shares that insomnia triggers tremendous anxiety and patient shares some of her history that includes a lot of bad memories around anxiety and insomnia.? Patient also was able to potentially make a connection between her history of going up with an alcoholic mother and recently being triggered this past August when on vacation with her alcoholic sister which seems to have opened up a Flood gait of formally repressed emotions.? Patient is eager for medication changes. Recap of History: overall stable for about 25 years on Prozac 60mg until it pooped out Started Paxil 40mg and stable for 5 years Patient was triggered into severe panic attack in August 2022 when on vacation with alcoholic sister (likely opening up repressed emotions from growing up w/ alcoholic mother) Outpatient provider increased Paxil to 50 mg however after few days patient found it unbearable, jumping out of her skin and for the 1st time presented for inpatient admission [facility] admission August 2022: Paxil discontinued and patient started on Cymbalta and Seroquel.? Discharged home but still anxious, with increased blood pressure, feeling dizzy and with a headache [facility] admission September 2022:? Cymbalta/Seroquel discontinued and patient started on Lexapro 20 mg, discharged home.? This past week, anxiety unbearable, insomnia and accidentally overtook Ativan Patient now presents for 3rd admission to [facility] October 2022 IMPRESSION: Long history of anxiety, and now depression.? Patient may not quite technically criteria for PTSD however she has traumatic memories growing up with her alcoholic mother that have affected her entire life and seem to be driving much of her current decompensation.? Patient has never discussed these memories and associated anxieties but was re-triggered into panic this past August when on vacation with her alcoholic sister.? It seems that at this time, those repressed traumatic memories were let lose.? Patient was stable on Paxil 40 mg.? It is possible that Paxil remains partially helpful but was just not enough to hold off this rapid influx of emotion.? It seems less likely that Paxil suddenly stop working as it was working fine for 5 years until this 1 event in August.? Patient could not tolerate higher dose of Paxil.? It is also possible that patient is having some discontinuation syndrome as she has only been on other antidepressants for very short period of time.? Patient agrees that she needs therapy to discuss her past.? In the short term patient agrees to treating her immediate anxiety with clonazepam and or clonidine; discussed risks/side effects of medications, including her accidental misuse of benzos and patient is okay with restarting and will make a plan for safety if discharged on benzos.? Patient also agrees to restart Paxil given possibility of discontinuation syndrome and also that Paxil may be partially helpful.? Will also start patient on mirtazapine since she has insomnia (again discussed risks/side effects, patient ask questions and is okay with this medication.? Since patient has not seemed to benefit from a either SSRIs or and SNRI, will also consider TCAs.? DMS was also discussed. -at this time patient's anxiety is so overwhelming that she cannot function on her own in the community and requires immediate medication management that cannot be done and in outpatient setting. 10/23/2022 Patient has improved some, less anxious and more hopeful.? Slept last night.? Will increase Paxil.? Patient also wants mirtazapine increased but agrees to wait for now. 10/24little sleep last night, today patient exceedingly tearful and hopeless depressed.? Agrees to titration of mirtazapine and starting Zyprexa.? [employer] asked but patient ?said she did not want to know about risks/side effects of Zyprexa at this time 10/25 patient slept well last night and feels much better.? She is much more in tune with how dysregulated she gets at the thought of not sleeping and wants to explore it more.? She likes medication regimen and does not want to change it other than clonazepam as a p.r.n. instead.? Since patient is so up and down, she needs to remain on the unit to continue to demonstrate stability over the next few days 10/26 another good day in good night sleep last night.? Feeling better.? Agrees to continue with medication regimen as it is for now.? Will continue to monitor but if patient remains stable will proceed with discharge.? Plan is for partial day program afterwards 10/27 continues to do well, good mood, anxiety under control; likes current medication regimen and is without any side effects.? Reviewed medications with patient who wants to remain on them.? She feels ready for discharge and is eager to attend partial program; also eager to engage in outpatient therapy.? Patient is without any SI or passive wish, feeling stable and back to her regular self.? Patient's overdose with benzo's was accidental and her will be holding on to benzos for her.? She returns home to live with her supportive .? Patient will also have partial program which she will attend this week which will help with transitioning home.? While patient remains vulnerable to decompensation, she has made considerable strides in making connections between past trauma and current struggles with anxiety, something she has never done before and which has been instrumental in getting her thoughts and feelings under control.? Patient has remained in good behavioral and impulse control and is not in imminent risk of harm to self or others.? She is appropriate to continue treatment in the community. - discussed case with team, met with patient; met and spoke with patient's daughter and discussed treatment Medication: Zyprexa 2.5mg qhs Clonazepam 0.5 b.i.d. p.r.n. clonidine p.r.n. for anxiety Paxil 30 mgmirtazapine 15 mg q.h.s. Time Spent with Patient Time attestation: Total time managing care of this patient today ____ minutes. Discharge Plan Discharge Anticipated Discharge Date/Time: 10/28/22 10:45 Patient Disposition: Home, Self-Care Discharge Diagnosis: PTSD, chronic with acute exacerbation Referrals: [facility] Intake: Monique ([facility]) [Other] - 10/28/22 11:00 am (Drive past the ER entrance, take the right and when you get to the stop sign at the crosswalk, talk a left down to Park[address]. You will see a red trailer connected to a building, take the walkway into this building, labeled [facility] . The program is to the left when you walk in the building. The program is Wednesday through Wednesday 8:45 am until 1:45 pm. ) Therapy: Christy Swartz ([facility]) [Other] - 11/04/22 11:00 am (In person at the office ) Psychiatry: Conner Alaniz ([facility]) [Other] - 11/24/22 9:00 am (In person at the office ) Lizzette Little PA [Primary Care Provider] - 1 Week (Please call to schedule an appointment.) Discharge Medications: New clonidine HCl 0.1 mg Tablet 0.1 mg PO Q4H PRN (Reason: anxiety/insomnia) 30 Days Qty: 90 2RF Protocol: Hold for SBP< HOLD for SBP < : 90 mirtazapine 15 mg Tablet 15 mg PO BEDTIME 30 Days Qty: 30 2RF olanzapine 2.5 mg Tablet See Rx Instructions .ROUTE .COMPLEX Qty: 60 2RF Rx Instructions: take 1 tab at bedtime; may also take 1 tab daily as needed for anxiety/agitation/insomnia paroxetine HCl 30 mg Tablet 30 mg PO DAILY 30 Days Qty: 30 2RF clonazepam 0.5 mg tablet 0.5 mg PO DAILY PRN (Reason: anxiety/insomnia) 30 Days Qty: 30 0RF Continued calcium carbonate [Calcium 600] 600 mg calcium (1,500 mg) tablet 1,200 mg PO DAILY 30 Days Qty: 60 6RF cholecalciferol (vitamin D3) [Vitamin D3] 125 mcg (5,000 unit) tablet 125 mcg PO DAILY 30 Days Qty: 30 6RF multivitamin Tablet 1 tab PO DAILY Qty: 30 0RF alendronate [Fosamax] 70 mg tablet 70 mg PO QWEEK 90 Days Qty: 13 1RF Label Comments: Patient takes on Wednesday. amlodipine [Norvasc] 5 mg tablet 5 mg PO DAILY 30 Days Qty: 30 0RF Rx Instructions: patient is advised that she has an order for labs non fasting and should get this done to evaluate her potassium level and she understands/agrees pravastatin 20 mg tablet 20 mg PO DAILY Qty: 30 6RF Citrucel 500 mg tablet 1,000 mg PO BID 30 Days Qty: 120 6RF Rx Instructions: Take two tablets by mouth twice a day Align 4 mg Capsule 4 mg PO DAILY 30 Days Qty: 30 0RF Discontinued hydroxyzine HCl 25 mg tablet 25 mg PO Q6H PRN (Reason: Anxiety) 30 Days Qty: 60 1RF lorazepam 1 mg Tablet See Rx Instructions .ROUTE .COMPLEX Qty: 20 0RF Rx Instructions: 1 tab at bedtime 1/2 tab 2 times a day as needed for anxiety escitalopram oxalate 20 mg Tablet 20 mg PO DAILY 15 Days Qty: 15 0RF Discharge Orders: Discharge Order (Routine); Ordered 10/28/22 Ordered By: Ryan Bhardwaj Diet: Regular diet Activity on Discharge: As tolerated Stand Alone Forms: Patient Portal Discharge page, Community Support Care Plan Goals: Maintain mood and safe behaviors Take medications as prescribed Practice coping skills Continue with outpatient providers and reach out to them as needed Health Concerns: Mood stability and behaviors Hypertension Hypercholesterol Plan of Treatment: Follow up with your PCP, psychiatric provider and other outpatient providers regarding above concerns Take medications as prescribed Assessment: Risk assessment at time of discharge:? Patient was interviewed prior to discharge and found to be fully oriented and without any SI or HI. Patient has insight and demonstrates good judgment in terms of wanting to pursue treatment. Patient is not in imminent risk of harm to self or others and has a safety plan that includes presenting to the closest ER or calling 911 if feeling unsafe.? Patient has been observed closely by nursing and unit staff throughout admission; patient has not engaged in any behaviors that suggest dangerousness to self or others and has demonstrated appropriate behaviors and impulse control Discharge Date/Time: 10/28/22 10:44
[2022-10-28] MEDS: Cholecalciferol (Vitamin D3) 25 MCG TABLET 125 MCG PO (09:08)
[2022-10-28] MEDS: Calcium + Vitamin D 250 MG TABLET 500 MG PO (09:08)
[2022-10-28] MEDS: PARoxetine HCL 30 MG TABLET PO (09:08)
[2022-10-28] MEDS: amLODIPine Besylate 5 MG TABLET PO (09:09)
[2022-10-28] MEDS: Multivitamin TABLET 1 TAB PO (09:09)
== END 2022-10-28 10:44 | disposition home or self-care (01) | DRG 881 ==
LOC: HO.ED 13:04 → HO.PM5 23:54
PROVIDERS: Nurse Practitioner Family; Psychiatry & Neurology Psychiatry; Admitting Provider Psychiatry & Neurology Psychiatry; Emergency Provider Emergency Medicine Emergency Medical Services; PCP Student in an Organized Health Care Education/Training Program; Visit Provider Psychiatry & Neurology Psychiatry
DX: F32.9 Major depressive disorder, single episode, unspecified (principal); R45.851 Suicidal ideations; F41.1 Generalized anxiety disorder; I10 Essential (primary) hypertension; F43.10 Post-traumatic stress disorder, unspecified; Z20.822 Contact with and (suspected) exposure to COVID-19; Z79.899 Other long term (current) drug therapy
CPT/HCPCS: 36415; 80053; 80061; 80076; 80143; 80179; 80307; 82077; 82607; 82746; 83036; 83735; 84443; 85025; 87635; 93005; 99285

== ENCOUNTER 2022-11-06 11:00 | Outpatient (RCR) | payer MEDICARE, OTHER, SELFPAY ==
[2022-10-29 09:40] VITALS: BMI 27.2
[2022-10-29 10:56] VITALS: BP 110/60; PULSE 60; TEMP 37.6
--- NOTE | 2022-10-29 11:20 | PC.ADMIT ---
Patient is a 67 year old woman who was referred to [facility] by [facility] [place] [facility] where patient was admitted d/t severe anxiety and poor sleep. Patient reports she overtook Ativan taking 5 mg and her was concerned thus took her to the ER form evaluation. Patient did not need medical intervention. This was the second inpatient hospitalization for Zulma who was subsequently admitted in less than 2 weeks. See Integrative Assessment for more information. Patient denied SI or thoughts to harm herself. She presents with depressed mood and anxious affect. Sleep improving stated she is getting 7-8 Hrs a night with 0.25 mg Klonopin(stated she is cutting the tab in 1/2 and has been effective. Stated her has her medications to support patient in taking as prescribed. Medications reconciled with patient and inpatient medical record. [ End ]
[2022-10-29 12:57] LABS: Amphetamine Screen Urine Not Detected (Not Detect); Barbiturates, Urine Not Detected (Not Detect); Benzodiazepines Screen Urine Not Detected (Not Detect); Cannabinoid Screen Urine Not Detected (Not Detect); Cocaine Screen Urine Not Detected (Not Detect); Fentanyl, urine Not Detected (Not Detect); Opiate Screen Urine Not Detected (Not Detect); Phencyclidine Screen Urine Not Detected (Not Detect)
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
--- NOTE | 2022-10-29 16:10 | HO.PHPIOP ---
Case opened in treatment team.
--- NOTE | 2022-11-06 16:14 | P.PNPSP_ITS ---
Subjective Subjective Date of Service: 11/06/22 Reason For Visit: ELIAN,MDD,PTSD,panic d/o Medical Problems Affecting Mental Status: No Interim History: Describes mood as ?content, much improved ?. Feels current medications are working well. No SI, no safety concerns. Continues to have some difficulties with sleep, although states it is improving. Feels stable for discharge from [facility] at this time. Medication Compliance: Yes Side effects from medications: No Attending Groups: Yes Review of Systems Acute medical concerns: No Medical Review of Systems: unchanged Review of Systems Review of Systems A full review of systems was completed and was negative with the exception of pertinent positives noted in history of the presenting illness (HPI). Mental Status Exam Mental Status Exam Narrative: NAD. Denies SI, either active or passive. Patient Appearance: Well Grooomed Patient Orientation: Person, Place, Time and Situation Level of Consciousness: Appropriate and Alert Patient Behavior: Appropriate, Cooperative and Good Eye Contact Mood Description: Calm Affect Description: Calm Patient Cognition Impaired: No Ability to Follow Directions: Excellent Speech Pattern: Clear, Appropriate and Coherent Memory Description: Intact Hallucinations: None Delusions: Not Present Thought Process: Intact Thought Content: positive for Intact Depressive Symptoms: Difficulty Sleeping (improving) Judgement: Good Diagnostics Vital Signs (24Hr): BMI result Body Mass Index 27.2 Assessment & Plan Assessment & Plan (1) Major depressive disorder: Status: Acute Code(s): F32.9 - Major depressive disorder, single episode, unspecified Assessment and Plan: Describes mood as ?content, much improved ?. Feels current medications are working well. continues to assist with medications. No panic, no anxiety or depression sx at this time. Feels stable, has found [facility] helpful. Hopeful for future. Has schedule including volunteer work, upcoming new psychiatrist appointment. No SI, no safety concerns. Continues to have some difficulties with sleep, although states it is improving. Feels stable for discharge from [facility] at this time. (2) Panic disorder: Status: Acute Code(s): F41.0 - Panic disorder [episodic paroxysmal anxiety] (3) ELIAN (generalized anxiety disorder): Status: Acute Code(s): F41.1 - Generalized anxiety disorder (4) PTSD (post-traumatic stress disorder): Status: Suspected Code(s): F43.10 - Post-traumatic stress disorder, unspecified Plan 1. Patient appears stable for discharge from [facility] at this time. 2. Patient to follow-up with outpatient providers going forward. Patient educated on: diagnosis, medication risk/benefits and therapeutic strategies Informed Consent: understands Reason for contiued partial hosp. stay Substantial Risk for: stable for discharge Certification I certify that partial hospital treatment is medically necessary due to the symptoms and problems resulting from the patient's mental illness and the failure to treat the patient at the partial hospital level of care would likely result in the patient requiring inpatient psychiatric care which could not be prevented at a less intensive level of care. Total time managing care of this patient today __20__ minutes. Discharge Plan Discharge Attending provider: Palmer Ramirez Additional Instructions: Appointment with Dr Conner Jacobs at [facility] on 11/24/22 at 1pm. Appointment with therapist Gómez Swartz on 11/11/22 at 10am. Medications: No Action calcium carbonate [Calcium 600] 600 mg calcium (1,500 mg) tablet 1,200 mg PO DAILY 30 Days Qty: 60 6RF cholecalciferol (vitamin D3) [Vitamin D3] 125 mcg (5,000 unit) tablet 125 mcg PO DAILY 30 Days Qty: 30 6RF multivitamin Tablet 1 tab PO DAILY Qty: 30 0RF alendronate [Fosamax] 70 mg tablet 70 mg PO QWEEK 90 Days Qty: 13 1RF Label Comments: Patient takes on Wednesday. amlodipine [Norvasc] 5 mg tablet 5 mg PO DAILY 30 Days Qty: 30 0RF Rx Instructions: patient is advised that she has an order for labs non fasting and should get this done to evaluate her potassium level and she understands/agrees pravastatin 20 mg tablet 20 mg PO DAILY Qty: 30 6RF Citrucel 500 mg tablet 1,000 mg PO BID 30 Days Qty: 120 6RF Rx Instructions: Take two tablets by mouth twice a day Align 4 mg Capsule 4 mg PO DAILY 30 Days Qty: 30 0RF clonidine HCl 0.1 mg Tablet 0.1 mg PO Q4H PRN (Reason: anxiety/insomnia) 30 Days Qty: 90 2RF Protocol: Hold for SBP< HOLD for SBP < : 90 mirtazapine 15 mg Tablet 15 mg PO BEDTIME 30 Days Qty: 30 2RF olanzapine 2.5 mg Tablet See Rx Instructions .ROUTE .COMPLEX Qty: 60 2RF Rx Instructions: take 1 tab at bedtime; may also take 1 tab daily as needed for anxiety/agitation/insomnia paroxetine HCl 30 mg Tablet 30 mg PO DAILY 30 Days Qty: 30 2RF clonazepam 0.5 mg tablet 0.5 mg PO DAILY PRN (Reason: anxiety/insomnia) 30 Days Qty: 30 0RF Stand Alone Forms: Patient Portal Discharge page Patient Education: Depression (DC), Panic Disorder (DC)
== END 2022-11-06 23:59 | disposition home or self-care (01) ==
LOC: HO.PHPA 11:00
PROVIDERS: Visit Provider Psychiatry & Neurology Psychiatry
DX: F43.10 Post-traumatic stress disorder, unspecified (principal); F41.1 Generalized anxiety disorder; F32.9 Major depressive disorder, single episode, unspecified; F41.0 Panic disorder [episodic paroxysmal anxiety]; Z79.899 Other long term (current) drug therapy
CPT/HCPCS: 80307; 90791; 90853

== ENCOUNTER 2023-06-29 06:40 | Emergency (ER) | payer MEDICARE, OTHER, SELFPAY ==
--- NOTE | 2023-06-29 07:03 | ED_ITS ---
HPI - Psych General Chief Complaint: Psychiatric Symptoms Stated Complaint: Crisis Time Seen by Provider: 06/29/23 07:00 Source: patient Mode of arrival: ambulatory Limitations: no limitations History of Present Illness HPI Narrative: 67 yo female with hx of ELIAN, PTSD, MDD, HTN here with c/o worsening depression and thoughts of SI with plan to overdose on pills. She notes she fluctuates up and down with her depression. She states she just doesn't feel well. She has been in patient 2 to 3 times. MD complaint: suicidal ideation and feels depressed Onset (ago): month(s) (several months) Duration: intermittent and getting worse History of same: Yes Relieving factors: none Exacerbating factors: other Context: other (states this started post menopause) Associated psychiatric symptoms: depression and suicidal ideation Associated symptoms: denies other symptoms Treatments prior to arrival: none If self harm: admits thoughts of self harm and has plan Related Data Home Medications Medication Instructions Recorded Confirmed olanzapine 2.5 mg tablet 2.5 mg PO BEDTIME 06/29/23 06/29/23 olanzapine 2.5 mg tablet 2.5 mg PO DAILY PRN Agitation 06/29/23 06/29/23 pravastatin 20 mg tablet 20 mg PO BEDTIME 06/29/23 06/29/23 Previous Rx's Medication Instructions Recorded amlodipine 5 mg tablet (Norvasc) 5 mg PO DAILY 30 days #30 tabs 09/24/22 methylcellulose (laxative) 500 mg 1,000 mg (2 x 500 mg) PO BID 09/24/22 tablet (Citrucel) constipation 30 days #120 tabs multivitamin 1 tab PO DAILY #30 tabs 09/24/22 calcium carbonate 600 mg calcium 1,200 mg (2 x 600 mg calcium 10/23/22 (1,500 mg) tablet (Calcium) (1,500 mg)) PO DAILY 30 days #60 tabs cholecalciferol (vitamin D3) 125 125 mcg PO DAILY 30 days #30 tabs 10/23/22 mcg (5,000 unit) tablet (Vitamin D3) mirtazapine 15 mg tablet 15 mg PO BEDTIME 30 days #30 tabs 10/28/22 paroxetine HCl 30 mg tablet 30 mg PO DAILY 30 days #30 tabs 10/28/22 Allergies Allergy/AdvReac Type Severity Reaction Status Date / Time No Known Allergies Allergy Verified 09/07/22 14:18 [No Known Allergies*] Review of Systems 2 Review of Systems: Constitutional : No Fever, No Chills ENT/Mouth : No Ear Pain, No Nasal Congestion, No sore throat Eyes: No Eye Pain, No Swelling, No Redness Cardiovascular : No Chest Pain, No SOB Respiratory : No Cough, No Sputum, No Dyspnea Gastrointestinal : No Nausea, No Vomiting, No Diarrhea, No Hematochezia, No Melena Genitourinary : No Dysuria, No Urinary Frequency, No Hematuria Musculoskeletal : No Myalgias Skin : No Skin Lesions, No rash Neuro : No Weakness, No Numbness, No Paresthesias, No Dizziness, No Headache Psych : positive Anxiety, positive Depression, positive SI no HI Heme/Lymph: No Lymphadenopathy Endocrine : No Polyuria, No Polydipsia All other systems reviewed and are negative [facility] Past Medical History Attestation statement: The following information was validated with the patient. Source: old records reviewed Medical History PTSD (post-traumatic stress disorder) ELIAN (generalized anxiety disorder) PAC (premature atrial contraction) History of anxiety Dyslipidemia Osteoarthritis (arthritis due to wear and tear of joints) Diverticulitis Essential hypertension Hyperkalemia Depression Surgical History History of total right knee replacement Hx of colonoscopy History of carpal tunnel release Family History Family History Mother Dementia Father No problems noted. Social History Social History Household Members: Spouse Housing: House Are you a primary healthcare risk control consultant to a significant other at home: No Do you presently have visiting nurse or other home services: No Alcohol intake: never Patient Tobacco Use Status: Never used Tobacco e-Cigarette/Vaping Use: Never Used Second Hand Smoke Exposure: No Advance Directives: Yes Advance Directives Information Provided: Yes Advance Directives on File: No Advance Directives Date on File: 07/31/20 Guardian: No service: No Current occupational status: retired Current occupation: Right Handed Sexual orientation: Straight/Heterosexual Cognitive needs: No Hearing needs: No Vision needs: No Physical Exam 2 Vital Signs: Vital Signs: Last Vital Signs Temp 97.5 F 06/29/23 07:05 Pulse 69 06/29/23 07:05 Resp 18 06/29/23 07:05 BP 188/91 H 06/29/23 07:05 Pulse Ox 95 06/29/23 07:05 O2 Del Method Room Air 06/29/23 07:05 BMI result Body Mass Index 26.6 Appearance: Alert. Oriented X3. No acute distress. Eyes: Pupils equal, round and reactive to light. ENT: Pharynx normal. Neck: Normal inspection. Neck supple. CVS: Normal heart rate and rhythm. Pulses normal. Respiratory: No respiratory distress. Breath sounds normal. Abdomen: Soft and nontender. Skin: Skin warm and dry. Normal skin color. Normal skin turgor. Extremities: No lower extremity edema. No calf ttp Neuro: Oriented X 3. No motor deficit. No sensory deficit. CN2-12 intact Course Course Course Narrative: Physician observation started at 741am Patient placed in physician observation because the patient needed more time for CARE team to assess the need for psych admission. At the time observation was started the patient's vitals were stable, patient is alert and oriented but anxious. Neuro: nonfocal, CV RRR, Lungs clear Medical Decision Making Medical Decision Making MDM Narrative: 67 yo female with hx of ELIAN, PTSD, MDD, HTN here with depression and SI she denies any medical complaints. no actual self harm or ingestion. Will obtain labs and refer to CARE team. Differential Diagnosis Differential Diagnoses: The differential diagnosis associated with the presentation includes depression, SI, PTSD Admission/Observation Consideration of admission/observation: Escalation of care including admission/observation considered observe until assessed by care team Consult Healthcare Provider Management of the patient was discussed with: Behavioral Health Provider Lab Data [facility] Lab Attestation statement: I reviewed the patient's lab results. 06/29/23 09:27 06/29/23 09:27 Labs: Lab Results 06/29/23 06/29/23 06/29/23 Range/Units 07:12 09:16 09:27 WBC 10.6 (4.8-10.8) X10*3/uL RBC 4.93 (4.20-5.50) X10*6/uL Hgb 15.2 (12.0-16.0) g/dl Hct 45.2 (37.0-47.0) % MCV 91.7 (80.0-98.0) fL MCH 30.8 (27.0-33.0) pg MCHC 33.6 (31.0-35.0) g/dl RDW 12.8 (11.0-16.0) % Plt Count 313 (160-400) X10*3/uL MPV 9.3 L (9.4-12.3) fL Absolute Nucleated RBC 0.000 (0.0-0.012) X10*3/uL Nucleated RBC % (auto) 0.0 (0.0-0.2) /100WBC Sodium 142 (135-145) mmol/L Potassium 4.0 (3.3-5.1) mmol/L Chloride 108 (96-108) mmol/L Carbon Dioxide 26 (22-29) mmol/L Anion Gap 12 (12-20) BUN 17 H (9-16) mg/dL Creatinine 0.68 (0.5-1.4) mg/dL Estim Creat Clear Calc 83.6 Estimated GFR > 60 Random Glucose 104 (60-115) mg/dL Calcium 9.7 (8.4-10.2) mg/dL Total Bilirubin 0.6 (0.0-1.0) mg/dL AST 24 (5-31) U/L ALT 35 H (0-31) U/L Alkaline Phosphatase 57 (39-117) U/L Total Protein 7.6 (6.5-8.0) g/dL Albumin 4.4 (3.5-5.0) g/dL Urine Color Dark Yellow Urine Appearance Clear Urine pH 6.5 (5.0-9.0) Ur Specific [place] 1.020 (1.005-1.025) Urine Protein Trace (Neg-Trace) mg/dL Urine Glucose (UA) Negative (Negative) mg/dL Urine Ketones Negative (Negative) mg/dL Urine Blood Negative (Negative) Urine Nitrite Negative (Negative) Ur Leukocyte Esterase Trace H (Negative) Urine RBC 3-5 H (0-2) /HPF Urine WBC 0-5 (0-5) /HPF Ur Squamous Epith Cells 0-2 (0-2) /HPF Urine Bacteria None Seen (None Seen) Hyaline Casts 0-2 (0-2) /LPF Salicylates < 5.0 L (15-30) mg/dL Urine Opiates Screen Not Detected (Not Detect) Urine Fentanyl Screen Not Detected (Not Detect) Acetaminophen < 17 (<30) mcg/mL Ur Barbiturates Screen Not Detected (Not Detect) Ur Phencyclidine Scrn Not Detected (Not Detect) Ur Amphetamines Screen Not Detected (Not Detect) U Benzodiazepines Scrn Not Detected (Not Detect) Urine Cocaine Screen Not Detected (Not Detect) U Marijuana (THC) Screen Not Detected (Not Detect) Ethyl Alcohol < 10 mg/dL COVID-19 (JANET) Negative (Negative) COVID-19 Clin Com See Note External Record Review External record reviewed: Inpatient record Discharge Plan Discharge Clinical Impression: Suicidal ideation Patient Disposition: Still a Patient Prescriptions: No Action calcium carbonate [Calcium 600] 600 mg calcium (1,500 mg) tablet 1,200 mg PO DAILY 30 Days Qty: 60 6RF cholecalciferol (vitamin D3) [Vitamin D3] 125 mcg (5,000 unit) tablet 125 mcg PO DAILY 30 Days Qty: 30 6RF multivitamin Tablet 1 tab PO DAILY Qty: 30 0RF amlodipine [Norvasc] 5 mg tablet 5 mg PO DAILY 30 Days Qty: 30 0RF Rx Instructions: patient is advised that she has an order for labs non fasting and should get this done to evaluate her potassium level and she understands/agrees Citrucel 500 mg tablet 1,000 mg PO BID 30 Days Qty: 120 6RF Rx Instructions: Take two tablets by mouth twice a day mirtazapine 15 mg Tablet 15 mg PO BEDTIME 30 Days Qty: 30 2RF paroxetine HCl 30 mg Tablet 30 mg PO DAILY 30 Days Qty: 30 2RF olanzapine 2.5 mg tablet 2.5 mg PO DAILY PRN (Reason: Agitation) olanzapine 2.5 mg tablet 2.5 mg PO BEDTIME pravastatin 20 mg tablet 20 mg PO BEDTIME
[2023-06-29 07:05] VITALS: BP 188/91; PULSE 69; RESP 18; TEMP 36.4; O2SAT 95; BMI 26.6
[2023-06-29 07:29] LABS: Amphetamine Screen Urine Not Detected (Not Detect); Barbiturates, Urine Not Detected (Not Detect); Benzodiazepines Screen Urine Not Detected (Not Detect); Cannabinoid Screen Urine Not Detected (Not Detect); Cocaine Screen Urine Not Detected (Not Detect); Fentanyl, urine Not Detected (Not Detect); Opiate Screen Urine Not Detected (Not Detect); Phencyclidine Screen Urine Not Detected (Not Detect)
--- NOTE | 2023-06-29 08:52 | PHA.MEDREC ---
Pharmacy Consult ? Medication Reconciliation Pharmacy has completed the medication reconciliation. Patient able to name all medications
[2023-06-29 09:35] LABS: Hematocrit 45.2 % (37.0-47.0); Hemoglobin 15.2 g/dl (12.0-16.0); Mean Corpuscular HGB Conc 33.6 g/dl (31.0-35.0); Mean Corpuscular Hemoglobin 30.8 pg (27.0-33.0); Mean Corpuscular Volume 91.7 fL (80.0-98.0); Mean Platelet Volume 9.3 fL (9.4-12.3); Platelet Count 313 X10*3/uL (160-400); Red Blood Count 4.93 X10*6/uL (4.20-5.50); Red Cell Distribution Width 12.8 % (11.0-16.0); White Blood Count 10.6 X10*3/uL (4.8-10.8)
[2023-06-29 09:36] LABS: Appearance Urine Clear; Color Urine Dark Yellow; Glucose Urine UA Negative (Negative); Leukocyte Esterase Urine Trace (Negative); Nitrite Urine Negative (Negative); PH 6.5 (5.0-9.0); UMIC TRIGGER UACC YES; Urine Blood Negative (Negative); Urine Ketones Negative (Negative); Urine Protein Trace mg/dL (Neg-Trace)
[2023-06-29 09:38] LABS: Bacteria Urine None Seen (None Seen); Hyaline Casts Urine 0-2 /LPF (0-2); Squamous Epithelial Cell Urine 0-2 /HPF (0-2); WBC Urine 0-5 /HPF (0-5)
[2023-06-29 09:49] LABS: COVID-19 Test Negative (Negative); IDNOW Serial# 08D9AD1C
[2023-06-29 09:53] LABS: Acetaminophen LAB < 17 mcg/mL (<30); Alanine Aminotransferase 35 U/L (0-31); Albumin Level 4.4 g/dL (3.5-5.0); Alkaline Phosphatase 57 U/L (39-117); Anion Gap 12 (12-20); Aspartate Amino Transferase 24 U/L (5-31); Bilirubin Total 0.6 mg/dL (0.0-1.0); Blood Urea Nitrogen 17 mg/dL (9-16); Calcium 9.7 mg/dL (8.4-10.2); Carbon Dioxide 26 mmol/L (22-29); Chloride 108 mmol/L (96-108); Creatinine Clr Calc Pharmacy 83.6; Estimated Glomerular Filt Rate > 60; Ethanol < 10 mg/dL; Glucose Random 104 mg/dL (60-115); Salicylate < 5.0 mg/dL (15-30); Sodium 142 mmol/L (135-145); Total Protein 7.6 g/dL (6.5-8.0)
--- NOTE | 2023-06-29 15:03 | P.CNPS_ITS ---
History of Present Illness Date of Service: 06/29/2023 Chief Complaint: Crisis Reason for Consult: depression HPI Narrative: Mrs. Sparks reports she was stable for several month after inpatient admission for depression with significant anxiety component. She reports she was taken of cymbalta. She reports poor sleep and poor appetite. she denied suicidal or homicidal ideation. She reports she is worried that once again her mood is off without clear trigger. We discussed physiological patterns of her agitated depression and need for treatment. No VH/AH. No overt delusions. She was worried about going back inpatient but did agree to follow up with PHP for more intensive treatment with agreement that if she gets worse she can be reevaluated to for inpatient level of care. Past Psychiatric History: -Overall stable for about 25 years on Prozac 60mg until it pooped out -Started Paxil 40mg and stable for 5 years -Patient was triggered into severe panic attack in August 2022 when on vacation with alcoholic sister (likely opening up repressed emotions from growing up w/ alcoholic mother) -Outpatient provider increased Paxil to 50 mg however after few days patient found it unbearable, jumping out of her skin and for the 1st time presented for inpatient admission -[facility] admission August 2022 (1st ever psych admission): Paxil discontinued and patient started on Cymbalta and Seroquel. Discharged home but still anxious, with increased blood pressure, feeling dizzy and with a headache -[facility] admission September 2022: Cymbalta/Seroquel discontinued and patient started on Lexapro 20 mg, discharged home. This past week, anxiety unbearable, insomnia and accidentally overtook Ativan -Patient 3rd admission to [facility] October 2022 No history PHP. -OP: awaiting new appointment with Dr. Conner Manjarrez through [facility]. -Has begun outpatient therapy. -Past trial: paxil, prozac, cymbalta, seroquel. Also Trazodone (not effective) -No hx of suicide attempts. Medical Evaluation Reviewed: Yes [facility] Medical History PTSD (post-traumatic stress disorder) ELIAN (generalized anxiety disorder) PAC (premature atrial contraction) History of anxiety Dyslipidemia Osteoarthritis (arthritis due to wear and tear of joints) Diverticulitis Essential hypertension Hyperkalemia Depression Surgical History History of total right knee replacement Hx of colonoscopy History of carpal tunnel release Family History: Her mother used to abuse alcohol and she has 2 siblings with alcohol abuse disorder Social History: . The patient is the oldest of 3 children, her milestones were achieved at expected age and she was raised by her parents. She reported that she was very close to her father but he when she was 17, her mother used to abuse alcohol and she had a difficult relation with her. She was a good student, graduate from high school and then go to college. At age of 19 she got and had her daughter when she was 21, eventually she her 1st and this relation lasted between 6 or 7 years. She remarried and she has been with her for the last 30 years. Has 1 adult daughter. 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 Trauma History: Victim, emotional. Traumatic memories from alcoholic mother Diagnostics Vital Signs (24Hr): Vital Signs - 24 hr 06/29/23 07:05 Temperature 97.5 F Pulse Rate 69 Respiratory Rate 18 Blood Pressure 188/91 H Pulse Oximetry 95 Oxygen Delivery Method Room Air BMI result Body Mass Index 26.6 Labs 06/29/23 09:27 06/29/23 09:27 Labs: Laboratory Results - last 48 hr 06/29/23 06/29/23 06/29/23 07:12 09:16 09:27 WBC 10.6 RBC 4.93 Hgb 15.2 Hct 45.2 MCV 91.7 MCH 30.8 MCHC 33.6 RDW 12.8 Plt Count 313 MPV 9.3 L Absolute Nucleated RBC 0.000 Nucleated RBC % (auto) 0.0 Sodium 142 Potassium 4.0 Chloride 108 Carbon Dioxide 26 Anion Gap 12 BUN 17 H Creatinine 0.68 Estim Creat Clear Calc 83.6 Estimated GFR > 60 Random Glucose 104 Calcium 9.7 Total Bilirubin 0.6 AST 24 ALT 35 H Alkaline Phosphatase 57 Total Protein 7.6 Albumin 4.4 Urine Color Dark Yellow Urine Appearance Clear Urine pH 6.5 Ur Specific Lenora 1.020 Urine Protein Trace Urine Glucose (UA) Negative Urine Ketones Negative Urine Blood Negative Urine Nitrite Negative Ur Leukocyte Esterase Trace H Urine RBC 3-5 H Urine WBC 0-5 Ur Squamous Epith Cells 0-2 Urine Bacteria None Seen Hyaline Casts 0-2 Salicylates < 5.0 L Urine Opiates Screen Not Detected Urine Fentanyl Screen Not Detected Acetaminophen < 17 Ur Barbiturates Screen Not Detected Ur Phencyclidine Scrn Not Detected Ur Amphetamines Screen Not Detected U Benzodiazepines Scrn Not Detected Urine Cocaine Screen Not Detected U Marijuana (THC) Screen Not Detected Ethyl Alcohol < 10 COVID-19 (JANET) Negative COVID-19 Clin Com See Note Mental Status Exam Mental Status Exam Patient Appearance: Well Grooomed Patient Orientation: Person, Place, Time and Situation Level of Consciousness: Appropriate Patient Behavior: Cooperative Mood Description: Depressed and Nervous Affect Description: Nervous (dysphoric) Ability to Follow Directions: Good Speech Pattern: Clear, Appropriate and Spontaneous Speech Hallucinations: None Delusions: Not Present Thought Process: Rumination Thought Content: positive for Perseveration Depressive Symptoms: Increased Anxiety and Difficulty Sleeping Judgement: Fair Medications Medications Current Medications Amlodipine Besylate (Amlodipine Besylate 5 Mg Tablet) 5 mg PO DAILY HARESH; Protocol Allergies Allergies Allergy/AdvReac Type Severity Reaction Status Date / Time No Known Allergies Allergy Verified 09/07/22 14:18 [No Known Allergies*] Assessment & Plan Assessment & Plan (1) PTSD (post-traumatic stress disorder): Status: Suspected Code(s): F43.10 - Post-traumatic stress disorder, unspecified (2) ELIAN (generalized anxiety disorder): Status: Acute Code(s): F41.1 - Generalized anxiety disorder (3) Panic disorder: Status: Acute Code(s): F41.0 - Panic disorder [episodic paroxysmal anxiety] Plan Mrs. Sparks is a 68 year-old woman with hx of PTSD, panic disorder who self presented in a dysphoric state. She denied SI/HI. No overt delusions or psychosis. She denied SI/HI but worries that this is the begining of another episode which in the past can be severe. She agrees to be referred to [facility] with agreement that if symptoms worsened she can be assessed for inpatient level of care. Total time managing care of this patient today ____ minutes.
--- NOTE | 2023-06-29 15:40 | PC.NURSE ---
Zulma arrived to the unit after self presenting to the emergency dept quite tearful stating she took 2 Clonazepam instead of 1 this morning while feeling particularly anxious. Zulma has been calm and cooperative throughout the day. She has been easy to engage and in good behavioral control. Zulma has denied SI/HI since arriving this morning and has advocated for discharge stating I have a therapy appointment on July 20 and I think I will be ok till then . Zulma was discharged and her medications and belongings were returned. Zulma verbalized that she had her car in the parking lot and was safe to go home.
--- NOTE | 2023-06-29 15:43 | MHC.CARE ---
Pt was referred to [facility], RAD Team to f/u tomorrow morning (06/30) about timeline for intake
== END 2023-06-29 15:48 | disposition home or self-care (01) ==
PROVIDERS: Emergency Provider Emergency Medicine; PCP Student in an Organized Health Care Education/Training Program
DX: R45.851 Suicidal ideations (principal); Z20.822 Contact with and (suspected) exposure to COVID-19; F41.1 Generalized anxiety disorder; F32.9 Major depressive disorder, single episode, unspecified; F43.10 Post-traumatic stress disorder, unspecified; I10 Essential (primary) hypertension; E78.5 Hyperlipidemia, unspecified; Z79.899 Other long term (current) drug therapy
CPT/HCPCS: 36415; 80053; 80143; 80179; 80307; 81001; 85027; 87635; 99284; S9485

== ENCOUNTER → 2023-06-29 07:17 | Outpatient (BNV) | payer MEDICARE, OTHER, SELFPAY | PROVIDERS: Emergency Provider Emergency Medicine; PCP Student in an Organized Health Care Education/Training Program; Visit Provider Social Worker | DX: F43.10 Post-traumatic stress disorder, unspecified (principal); F41.1 Generalized anxiety disorder; F41.0 Panic disorder [episodic paroxysmal anxiety] | CPT/HCPCS: 99285 ==

== ENCOUNTER → 2023-07-01 10:45 | Outpatient (BNV) | payer MEDICARE, OTHER, SELFPAY | PROVIDERS: Visit Provider Clinical Nurse Specialist Psychiatric/Mental Health | DX: F32.9 Major depressive disorder, single episode, unspecified (principal) | CPT/HCPCS: 99204; 99212; 99213 ==

== ENCOUNTER 2023-07-16 10:15 | Outpatient (RCR) | payer MEDICARE, OTHER, SELFPAY ==
[2023-07-01 10:38] VITALS: BP 132/70; PULSE 64; TEMP 36.9
--- NOTE | 2023-07-01 10:47 | HO.PS.ADMBH ---
HPI Date of Service: 07/01/23 Chief Complaint: depression,anxiety HPI Narrative: pt referred by [facility] [place] after pt presented to ED reporting worseining anxiety, depression and thoughts of overdosing. pt depressed, anxious, has anhedonia, low energy, low motivation. pt also reports OCD rituals - tapping things 3 timesand has increased her anxiety and intefere with sleep. she has out pt providers at [facility] today pt says she is tearful, cant sleep, intrusive repetititve worries about not sleeping and then she will lose her mind. she is tearful; she wants to come off the paxxil; she is adamant that she wants to make a change in meds; she feels the remeron has helpd a little and she would like to continue it; she does not want to take the paxil; she denies current SI or HI; seh feels groups are very helpful. Past Psychiatric History: -Overall stable for about 25 years on Prozac 60mg until it pooped out -Patient 3rd admission to [facility] October 2022- overdose on ativan -[facility] admission August 2022 (1st ever psych admission): Paxil discontinued and patient started on Cymbalta and Seroquel. Discharged home but still anxious, with increased blood pressure, feeling dizzy and with a headache -[facility] admission September 2022: Cymbalta/Seroquel discontinued and patient started on Lexapro 20 mg, discharged home. This past week, anxiety unbearable, insomnia and accidentally overtook Ativan -Patient 3rd admission to [facility] October 2022 -[facility] admission August 2022 (1st ever psych admission): Paxil discontinued and patient started on Cymbalta and Seroquel. Discharged home but still anxious, with increased blood pressure, feeling dizzy and with a headache No history PHP. -OP: awaiting new appointment with Dr. Conner Manjarrez through [facility]. -Has begun outpatient therapy. -Past trial: paxil, prozac, cymbalta, seroquel. Also Trazodone (not effective) -No hx of suicide attempts. [facility] Medical History PTSD (post-traumatic stress disorder) ELIAN (generalized anxiety disorder) PAC (premature atrial contraction) History of anxiety Dyslipidemia Osteoarthritis (arthritis due to wear and tear of joints) Diverticulitis Essential hypertension Hyperkalemia Depression Surgical History History of total right knee replacement Hx of colonoscopy History of carpal tunnel release Family History: Her mother used to abuse alcohol and she has 2 siblings with alcohol abuse disorder Social History: . The patient is the oldest of 3 children, her milestones were achieved at expected age and she was raised by her parents. She reported that she was very close to her father but he when she was 17, her mother used to abuse alcohol and she had a difficult relation with her. She was a good student, graduate from high school and then go to college. At age of 19 she got and had her daughter when she was 21, eventually she her 1st and this relation lasted between 6 or 7 years. She remarried and she has been with her for the last 30 years. Has 1 adult daughter. 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 Substance History: no Trauma History: Victim, emotional. Traumatic memories from alcoholic mother Diagnostics Vital Signs (24Hr): Vital Signs - 24 hr 07/01/23 10:38 Temperature 98.4 F Pulse Rate 64 Blood Pressure 132/70 Meds/Allergies Meds Home Medications Medication Instructions Recorded Confirmed Type olanzapine 2.5 mg tablet 2.5 mg PO BEDTIME 06/29/23 06/29/23 History olanzapine 2.5 mg tablet 2.5 mg PO BEDTIME 06/29/23 07/01/23 History pravastatin 20 mg tablet 20 mg PO BEDTIME 06/29/23 07/01/23 History Allergies Allergies Allergy/AdvReac Type Severity Reaction Status Date / Time No Known Allergies Allergy Verified 09/07/22 14:18 [No Known Allergies*] Mental Status Exam Mental Status Exam Patient Appearance: Well Grooomed Patient Orientation: Person, Place, Time and Situation Level of Consciousness: Awake Patient Behavior: Appropriate and Crying Mood Description: Anxious and Sad Affect Description: Anxious and Sad Patient Cognition Impaired: Yes Ability to Follow Directions: Good Speech Pattern: Clear Hallucinations: None Delusions: Not Present Thought Process: Goal Oriented Thought Content: positive for Intact and positive for Goal Oriented Judgement: Fair Assessment & Plan Assessment & Plan (1) PTSD (post-traumatic stress disorder): Status: Suspected Code(s): F43.10 - Post-traumatic stress disorder, unspecified (2) ELIAN (generalized anxiety disorder): Status: Acute Code(s): F41.1 - Generalized anxiety disorder (3) Major depressive disorder: Status: Acute Code(s): F32.9 - Major depressive disorder, single episode, unspecified (4) Panic disorder: Status: Acute Code(s): F41.0 - Panic disorder [episodic paroxysmal anxiety] Plan 67 yo woam with PTSD, ELIAN, and MDD with continued anxiety and ruminating admited to [facility] for continued treatment plan admit to php groups per rptocol07/07/23 and decrease the paxil to 20mg daily take olanzepine 2.5 mg every night take remeron 15 mg every night start zoloft 50 mg in am tomorrow. Take paxil 30 mg daily until wednesday 07/04 On wednesday 07/04 cut paxil in half and take 15 mg plus the rx paxil 10 mg for total daily dose of 25 mg for 4 days then On saturday 07/07 increase zolft to 75mg daily and decrease the paxil to 20 mg daily x 1 week ON saturday 07/14 increase the zloft to 100mg and decrease paxil to 15 mg daily the above directions were written and given to patient TW advised her to alert staff if any discomfort with tapering schedule Patient educated on: diagnosis, medication risk/benefits and therapeutic strategies Reason for continued partial hosp. stay Substantial Risk for: harm to self, inability to function and rapid decompensation Certification I certify that partial hospital treatment is medically necessary due to the symptoms and problems resulting from the patient's mental illness and the failure to treat the patient at the partial hospital level of care would likely result in the patient requiring inpatient psychiatric care which could not be prevented at a less intensive level of care. Time Spent With Patient Time: Total time managing care of this patient today ____ minutes.
--- NOTE | 2023-07-01 11:04 | PC.ADMIT ---
Patient is a 67 year old woman who was referred to [facility] by [facility] Care Team as patient self presented to the ER struggling with depression, anxiety, and OCD sxs. Per records patient reportedly had thoughts to overdose on medication on 06/28/23. She reported poor sleep, sleeping 1-3 hours and struggling with OCD rituals with increased anxiety. Patient has a history of 3 inpatient behavioral health hospitalizations most recent 10/21-10/28/22 s/p overdose on 14 1mg tabs of Ativan (no medical intervention needed) patients found patient and she was subsequently hospitalized. She also was admitted on 10/09-10/15/22 and 09/14-09/24/22. Patient has a hx of attending PHP October 2022. Patient presents with depressed mood, tearful anxious affect. She denied SI or thoughts to harm herself. She was given a copy of her safety plan if needed and I reviewed this with her. She is struggling to sleep and reports difficulty falling asleep as she has anxious thoughts and can not control them. Medications reconciled with patient and patient's pharmacy. She reports taking medications as prescribed. She stated the Paxil is not working for her anymore. She stated she has been on paxil for 15 years and prior to that was on Prozac for 20 years which was effective however stopped working. She denied any history of using any substances including ETOH.
--- NOTE | 2023-07-01 16:04 | HO.PHP ---
The clients case was reviewed and opened in treatment team.
--- NOTE | 2023-07-06 10:09 | HO.PHPPROGNO ---
Subjective Subjective Date of Service: 07/06/23 Reason For Visit: depression,anxiety Healthcare Proxy: No Guardianship: No Medical Problems Affecting Mental Status: No Interim History: Zulma is seen in follow-up. Records were reviewed. She talked about the program which has been helpful to her. She was seen by Antionette Zabala and in light of the Paxil which she has been on for over 15 years not working as well she was switched to Zoloft but she is doing this gradually and denies any ill effects from the process and actually feels better on Zoloft, currently at 50 mg to be increased gradually to 100 mg. She is still on Paxil 25 mg and will proceed with the taper. She denies any side effects. She is known to me from many years ago. Medication Compliance: Yes Side effects from medications: No Attending Groups: Yes Review of Systems Review of Systems Yes all other systems are reviewed and are negative Mental Status Exam Mental Status Exam Narrative: In today's visit she is alert, oriented, pleasant and cooperative. Normal speech. Good eye contact. Affect is appropriate and varied. No signs of psychosis. No SI. No cognitive deficits. Judgment is intact Assessment & Plan Assessment & Plan (1) Major depressive disorder: Status: Acute Code(s): F32.9 - Major depressive disorder, single episode, unspecified (2) Panic disorder: Status: Acute Code(s): F41.0 - Panic disorder [episodic paroxysmal anxiety] Plan Continue tapering down and off Paxil and increasing Zoloft. Continue PHP Patient educated on: medication risk/benefits Certification I certify that partial hospital treatment is medically necessary due to the symptoms and problems resulting from the patient's mental illness and the failure to treat the patient at the partial hospital level of care would likely result in the patient requiring inpatient psychiatric care which could not be prevented at a less intensive level of care. Total time managing care of this patient today ____ minutes. Discharge Plan Discharge Attending provider: Palmer Ramirez Medications: No Action calcium carbonate [Calcium 600] 600 mg calcium (1,500 mg) tablet 1,200 mg PO DAILY 30 Days Qty: 60 6RF cholecalciferol (vitamin D3) [Vitamin D3] 125 mcg (5,000 unit) tablet 125 mcg PO DAILY 30 Days Qty: 30 6RF sertraline [Zoloft] 50 mg tablet 50 mg PO DAILY Qty: 30 0RF multivitamin Tablet 1 tab PO DAILY Qty: 30 0RF amlodipine [Norvasc] 5 mg tablet 5 mg PO DAILY 30 Days Qty: 30 0RF Citrucel 500 mg tablet 1,000 mg PO BID 30 Days Qty: 120 6RF Rx Instructions: Take two tablets by mouth twice a day mirtazapine 15 mg Tablet 15 mg PO BEDTIME 30 Days Qty: 30 2RF paroxetine HCl 30 mg Tablet 30 mg PO DAILY 30 Days Qty: 30 2RF olanzapine 2.5 mg tablet 2.5 mg PO BEDTIME pravastatin 20 mg tablet 20 mg PO BEDTIME clonazepam 0.5 mg tablet 0.5 mg PO BEDTIME Qty: 14 0RF Rx Instructions: administer 30 minutes before bedtime
--- NOTE | 2023-07-13 11:51 | HO.PHPPROGNO ---
Subjective Subjective Date of Service: 07/13/23 Reason For Visit: depression,anxiety Interim History: Zulma is seen for follow-up. She continues with the taper on Paxil all, currently at 20 mg for the past week and Zoloft to be increased to 100 mg. Instructions on how to taper off the Paxil over the next 10 days were given and she believes she has enough of a supply. A 1 month supply of Zoloft was sent in today. She denies any major withdrawal symptoms. She talked at length about the utility of the program for her which has been a lot. Medication Compliance: Yes Side effects from medications: No Attending Groups: Yes Review of Systems Review of Systems Yes all other systems are reviewed and are negative Mental Status Exam Mental Status Exam Narrative: In today's visit she is alert, oriented, pleasant and cooperative. Normal speech. Good eye contact. Affect is appropriate and varied. No signs of psychosis. No SI. No cognitive deficits. Judgment is intact Assessment & Plan Assessment & Plan (1) Major depressive disorder: Status: Acute Code(s): F32.9 - Major depressive disorder, single episode, unspecified Plan Taper off Paxil over the next 10 days. Increase Zoloft 100 mg. Continue [facility] Certification I certify that partial hospital treatment is medically necessary due to the symptoms and problems resulting from the patient's mental illness and the failure to treat the patient at the partial hospital level of care would likely result in the patient requiring inpatient psychiatric care which could not be prevented at a less intensive level of care. Total time managing care of this patient today ____ minutes. Discharge Plan Discharge Attending provider: Palmer Ramirez Medications: New sertraline [Zoloft] 100 mg tablet 100 mg PO DAILY Qty: 30 0RF No Action calcium carbonate [Calcium 600] 600 mg calcium (1,500 mg) tablet 1,200 mg PO DAILY 30 Days Qty: 60 6RF cholecalciferol (vitamin D3) [Vitamin D3] 125 mcg (5,000 unit) tablet 125 mcg PO DAILY 30 Days Qty: 30 6RF sertraline [Zoloft] 50 mg tablet 50 mg PO DAILY Qty: 30 0RF multivitamin Tablet 1 tab PO DAILY Qty: 30 0RF amlodipine [Norvasc] 5 mg tablet 5 mg PO DAILY 30 Days Qty: 30 0RF Citrucel 500 mg tablet 1,000 mg PO BID 30 Days Qty: 120 6RF Rx Instructions: Take two tablets by mouth twice a day mirtazapine 15 mg Tablet 15 mg PO BEDTIME 30 Days Qty: 30 2RF paroxetine HCl 30 mg Tablet 30 mg PO DAILY 30 Days Qty: 30 2RF olanzapine 2.5 mg tablet 2.5 mg PO BEDTIME pravastatin 20 mg tablet 20 mg PO BEDTIME clonazepam 0.5 mg tablet 0.5 mg PO BEDTIME Qty: 14 0RF Rx Instructions: administer 30 minutes before bedtime
--- NOTE | 2023-07-16 09:37 | HO.PHPPROGNO ---
Subjective Subjective Date of Service: 07/16/23 Reason For Visit: depression,anxiety Healthcare Proxy: No Guardianship: No Medical Problems Affecting Mental Status: No Interim History: Zulma is seen in follow-up/discharge. She continues to be tapering on the Paxil and has been on 10 mg for a week and I suggested stopping since she is on Zoloft at this time at 100 mg. She talked about the specific areas that the program was extremely helpful to her. She does have appointments at [facility] and will follow-up with those providers. No complaints or side effects. No changes were made. No prescriptions needed to be sent Medication Compliance: Yes Side effects from medications: No Attending Groups: Yes Review of Systems Review of Systems Yes all other systems are reviewed and are negative Mental Status Exam Mental Status Exam Narrative: In today's visit she is alert, oriented, pleasant and cooperative. Normal speech. Good eye contact. Affect is appropriate and varied. No signs of psychosis. No SI. No cognitive deficits. Judgment is intact Assessment & Plan Assessment & Plan (1) Major depressive disorder: Status: Acute Code(s): F32.9 - Major depressive disorder, single episode, unspecified Plan Patient will be discharged today and will follow-up at [facility] Patient educated on: diagnosis and medication risk/benefits Certification I certify that partial hospital treatment is medically necessary due to the symptoms and problems resulting from the patient's mental illness and the failure to treat the patient at the partial hospital level of care would likely result in the patient requiring inpatient psychiatric care which could not be prevented at a less intensive level of care. Total time managing care of this patient today ____ minutes. Discharge Plan Discharge Attending provider: Palmer Ramirez Medications: New sertraline [Zoloft] 100 mg tablet 100 mg PO DAILY Qty: 30 0RF No Action calcium carbonate [Calcium 600] 600 mg calcium (1,500 mg) tablet 1,200 mg PO DAILY 30 Days Qty: 60 6RF cholecalciferol (vitamin D3) [Vitamin D3] 125 mcg (5,000 unit) tablet 125 mcg PO DAILY 30 Days Qty: 30 6RF sertraline [Zoloft] 50 mg tablet 50 mg PO DAILY Qty: 30 0RF multivitamin Tablet 1 tab PO DAILY Qty: 30 0RF amlodipine [Norvasc] 5 mg tablet 5 mg PO DAILY 30 Days Qty: 30 0RF Citrucel 500 mg tablet 1,000 mg PO BID 30 Days Qty: 120 6RF Rx Instructions: Take two tablets by mouth twice a day mirtazapine 15 mg Tablet 15 mg PO BEDTIME 30 Days Qty: 30 2RF paroxetine HCl 30 mg Tablet 30 mg PO DAILY 30 Days Qty: 30 2RF olanzapine 2.5 mg tablet 2.5 mg PO BEDTIME pravastatin 20 mg tablet 20 mg PO BEDTIME clonazepam 0.5 mg tablet 0.5 mg PO BEDTIME Qty: 14 0RF Rx Instructions: administer 30 minutes before bedtime Stand Alone Forms: Patient Portal Discharge page Patient Education: Depression (DC)
--- NOTE | 2023-07-28 08:43 | HO.PHP ---
A message was left with the clients therapist, Tim Swartz at [facility] ,re discharge from the program.
== END 2023-07-16 23:59 | disposition home or self-care (01) ==
LOC: HO.PHPA 10:15
PROVIDERS: Visit Provider Psychiatry & Neurology Psychiatry
DX: F43.10 Post-traumatic stress disorder, unspecified (principal); F41.1 Generalized anxiety disorder; F32.9 Major depressive disorder, single episode, unspecified; F41.0 Panic disorder [episodic paroxysmal anxiety]
CPT/HCPCS: 90791; 90853

== ENCOUNTER 2023-07-26 06:10 | Emergency (ER) | payer MEDICARE, OTHER, SELFPAY ==
[2023-07-26 06:22] VITALS: BP 133/62; PULSE 80; RESP 16; TEMP 36.7; O2SAT 95; BMI 27.2
[2023-07-26 07:49] LABS: Alanine Aminotransferase 44 U/L (0-31); Albumin Level 4.8 g/dL (3.5-5.0); Alkaline Phosphatase 63 U/L (39-117); Anion Gap 19 (12-20); Aspartate Amino Transferase 27 U/L (5-31); Bilirubin Total 0.8 mg/dL (0.0-1.0); Blood Urea Nitrogen 13 mg/dL (9-16); Calcium 9.9 mg/dL (8.4-10.2); Carbon Dioxide 25 mmol/L (22-29); Chloride 107 mmol/L (96-108); Creatinine Clr Calc Pharmacy 78.6; Estimated Glomerular Filt Rate > 60; Glucose Random 119 mg/dL (60-115); Potassium 4.9 mmol/L (3.3-5.1); Sodium 146 mmol/L (135-145); Total Protein 8.6 g/dL (6.5-8.0)
[2023-07-26 08:09] LABS: Vitamin D 25-OH Total 130.1 ng/mL (>30)
[2023-07-26 08:16] VITALS: BP 174/94; PULSE 82; RESP 16; O2SAT 97
--- NOTE | 2023-07-26 08:16 | ED.GENADULT ---
HPI - General Adult General Chief complaint: General Medical Stated complaint: General Medical Time Seen by Provider: 07/26/23 08:12 Source: patient Mode of arrival: ambulatory Limitations: no limitations History of Present Illness HPI narrative: patient states that she realized that she had been taking 10,000 units of vitamin D for a year and decided that she need to be seen today. No history of kidney stones, no bone pain Onset (ago): year(s) Related Data Home Medications Medication Instructions Recorded Confirmed olanzapine 2.5 mg tablet 2.5 mg PO BEDTIME 06/29/23 07/02/23 pravastatin 20 mg tablet 20 mg PO BEDTIME 06/29/23 07/01/23 Previous Rx's Medication Instructions Recorded amlodipine 5 mg tablet (Norvasc) 5 mg PO DAILY 30 days #30 tabs 09/24/22 methylcellulose (laxative) 500 mg 1,000 mg (2 x 500 mg) PO BID 09/24/22 tablet (Citrucel) constipation 30 days #120 tabs multivitamin 1 tab PO DAILY #30 tabs 09/24/22 calcium carbonate 600 mg calcium 1,200 mg (2 x 600 mg calcium 10/23/22 (1,500 mg) tablet (Calcium) (1,500 mg)) PO DAILY 30 days #60 tabs cholecalciferol (vitamin D3) 125 125 mcg PO DAILY 30 days #30 tabs 10/23/22 mcg (5,000 unit) tablet (Vitamin D3) mirtazapine 15 mg tablet 15 mg PO BEDTIME 30 days #30 tabs 10/28/22 paroxetine HCl 30 mg tablet 30 mg PO DAILY 30 days #30 tabs 10/28/22 clonazepam 0.5 mg tablet 0.5 mg PO BEDTIME #14 tabs 06/29/23 sertraline 50 mg tablet (Zoloft) 50 mg PO DAILY #30 tabs 07/01/23 sertraline 100 mg tablet (Zoloft) 100 mg PO DAILY #30 tabs 07/13/23 Allergies Allergy/AdvReac Type Severity Reaction Status Date / Time No Known Allergies Allergy Verified 09/07/22 14:18 [No Known Allergies*] Review of Systems Review of Systems: Yes all other systems are reviewed and are negative Neurologic: Denies Sensory deficit (Neuro) PMFSH Past Medical History Medical History PTSD (post-traumatic stress disorder) ELIAN (generalized anxiety disorder) PAC (premature atrial contraction) History of anxiety Dyslipidemia Osteoarthritis (arthritis due to wear and tear of joints) Diverticulitis Essential hypertension Hyperkalemia Depression Surgical History History of total right knee replacement Hx of colonoscopy History of carpal tunnel release Family History Family History Mother Dementia Father No problems noted. Social History Social History Household Members: Spouse Housing: House Are you a primary patient care technician instructor to a significant other at home: No Do you presently have visiting nurse or other home services: No Alcohol intake: never Patient Tobacco Use Status: Never used Tobacco e-Cigarette/Vaping Use: Never Used Second Hand Smoke Exposure: No Advance Directives Date on File: 07/31/20 service: No Current occupational status: retired Current occupation: Right Handed Sexual orientation: Straight/Heterosexual Cognitive needs: No Hearing needs: No Vision needs: No Physical Exam ED Vital Signs: Vital Signs - 24 hr 07/26/23 06:22 Temperature 98.0 F Pulse Rate 80 Respiratory Rate 16 Blood Pressure 133/62 Pulse Oximetry 95 Oxygen Delivery Method Room Air BMI result Body Mass Index 27.2 Const Other: anxious female General: healthy appearing Nutritional Appearance: average body habitus Orientation/consciousness: oriented to person and patient oriented x3 Limitations: no limitations HENMT Head: Yes normal to inspection Ears: external ears normal General nose exam: Normal external nose present Mouth: Normal oral and palatal mucosa present and oropharynx normal Throat: Yes posterior oropharynx normal Eyes General: appearance normal, both eyes and all related structures Neck Neck: Yes normal visual inspection Chest Chest palpation & inspection: normal inspection of the chest Resp Auscultation: clear to auscultation bilaterally Cardio Jugular venous distension: no JVD Rate: regular rate Rhythm: regular rhythm Heart sounds: S1 normal heart sound present and S2 normal heart sound present GI Inspection: Yes normal to inspection Palpation (GI): Soft to palpation, nontender and No hepatosplenomegaly present Auscultation: normal bowel sounds General: Yes no CVA tenderness Back/Spine/Pelvis Back: no CVA tenderness Skin General skin exam: no rashes or lesions noted Neuro General: oriented to person and patient oriented x3 Cranial nerves: Yes CN's II-XII intact bilaterally Motor exam (neuro): 5/5 motor strength present throughout Sensory Exam: No Sensory deficit (Neuro) Extrem General: Yes normal to inspection Psych Other: anxious Appearance: grossly normal Course Reevaluation(s) Reevaluation #1: Will decrease patient down to 5,000 units once a day Time: 08:26 Medical Decision Making Differential Diagnosis Differential Diagnoses: The differential diagnosis associated with the presentation includes (Vitamin d toxicity, anxiety) Lab Data MDM Lab Attestation statement: I reviewed the patient's lab results. (Vitamin d level 130 with no symptoms will decrease intake) 07/26/23 07:07 07/26/23 07:07 Labs: Lab Results 07/26/23 Range/Units 07:07 WBC 14.1 H (4.8-10.8) X10*3/uL RBC 5.14 (4.20-5.50) X10*6/uL Hgb 16.3 H (12.0-16.0) g/dl Hct 48.6 H (37.0-47.0) % MCV 94.6 (80.0-98.0) fL MCH 31.7 (27.0-33.0) pg MCHC 33.5 (31.0-35.0) g/dl RDW 12.7 (11.0-16.0) % Plt Count 331 (160-400) X10*3/uL MPV 9.4 (9.4-12.3) fL Absolute Nucleated RBC 0.000 (0.0-0.012) X10*3/uL Nucleated RBC % (auto) 0.0 (0.0-0.2) /100WBC Sodium 146 H (135-145) mmol/L Potassium 4.9 D (3.3-5.1) mmol/L Chloride 107 (96-108) mmol/L Carbon Dioxide 25 (22-29) mmol/L Anion Gap 19 (12-20) BUN 13 (9-16) mg/dL Creatinine 0.73 (0.5-1.4) mg/dL Estim Creat Clear Calc 78.6 Estimated GFR > 60 Random Glucose 119 H (60-115) mg/dL Calcium 9.9 (8.4-10.2) mg/dL Total Bilirubin 0.8 (0.0-1.0) mg/dL AST 27 (5-31) U/L ALT 44 H (0-31) U/L Alkaline Phosphatase 63 (39-117) U/L Total Protein 8.6 H (6.5-8.0) g/dL Albumin 4.8 (3.5-5.0) g/dL 25-OH Vitamin D Total 130.1 (>30) ng/mL External Record Review External record reviewed: Outpatient record Chronic Conditions Patient?s care impacted by: Other (PTSD and anxiety) Discharge Plan Discharge Clinical Impression: Vitamin D overdose Qualifiers: Encounter type: initial encounter Injury intent: accidental or unintentional Qualified Code(s): T45.2X1A - Poisoning by vitamins, accidental (unintentional), initial encounter Patient Disposition: Home, Self-Care Additional Instructions: take 5,000 units once a day Prescriptions: No Action calcium carbonate [Calcium 600] 600 mg calcium (1,500 mg) tablet 1,200 mg PO DAILY 30 Days Qty: 60 6RF cholecalciferol (vitamin D3) [Vitamin D3] 125 mcg (5,000 unit) tablet 125 mcg PO DAILY 30 Days Qty: 30 6RF sertraline [Zoloft] 50 mg tablet 50 mg PO DAILY Qty: 30 0RF multivitamin Tablet 1 tab PO DAILY Qty: 30 0RF amlodipine [Norvasc] 5 mg tablet 5 mg PO DAILY 30 Days Qty: 30 0RF Citrucel 500 mg tablet 1,000 mg PO BID 30 Days Qty: 120 6RF Rx Instructions: Take two tablets by mouth twice a day mirtazapine 15 mg Tablet 15 mg PO BEDTIME 30 Days Qty: 30 2RF paroxetine HCl 30 mg Tablet 30 mg PO DAILY 30 Days Qty: 30 2RF olanzapine 2.5 mg tablet 2.5 mg PO BEDTIME pravastatin 20 mg tablet 20 mg PO BEDTIME clonazepam 0.5 mg tablet 0.5 mg PO BEDTIME Qty: 14 0RF Rx Instructions: administer 30 minutes before bedtime sertraline [Zoloft] 100 mg tablet 100 mg PO DAILY Qty: 30 0RF
== END 2023-07-26 08:50 | disposition home or self-care (01) ==
PROVIDERS: Emergency Provider Emergency Medicine; PCP Student in an Organized Health Care Education/Training Program
DX: T45.2X1A Poisoning by vitamins, accidental (unintentional), initial encounter (principal); R94.31 Abnormal electrocardiogram [ECG] [EKG]; Y92.9 Unspecified place or not applicable; Z79.899 Other long term (current) drug therapy
CPT/HCPCS: 36415; 80053; 82306; 85027; 93005; 99283; 99284

== ENCOUNTER 2023-10-04 08:26 | Outpatient (AMB) | payer MEDICARE, OTHER, SELFPAY ==
--- NOTE | 2023-10-04 08:31 | A.OFFVIS_ITS ---
Intake Intake Visit Reasons: OV - Discuss Left TKA Intake Note: Zulma is a 68 year old female who presents today for a follow up of her left knee OA, She would like to discuss TKA. Surgery was previously discussed as she is a good candidate but she was not ready at that time. Allergies No Known Allergies [No Known Allergies*] Allergy (Verified 09/07/22 14:18) HPI OV - Discuss Left TKA HPI Details Zulma is a 68 year old woman who presents to discuss her left knee OA. She has pain with daily activity, which has worsened recently. At her last appointment, a left TKA was discussed, but was not ready to proceed. She would like to discuss surgery again today. She has a hx of right TKA, DOS: 11/05/20, which she tolerated well and is happy with. Now she described limping that worsens the more she walks. There is pain at night and it has not responded to injections and NSAIDs and the quality of her life is diminished [facility] Medical History PTSD (post-traumatic stress disorder) ELIAN (generalized anxiety disorder) PAC (premature atrial contraction) History of anxiety Dyslipidemia Osteoarthritis (arthritis due to wear and tear of joints) Diverticulitis Essential hypertension Hyperkalemia Depression Surgical History History of total right knee replacement Hx of colonoscopy History of carpal tunnel release Family History Mother Dementia Father No problems noted. Social History Household Members: Spouse Housing: House Are you a primary cattle care worker to a significant other at home: No Do you presently have visiting nurse or other home services: No Alcohol intake: never Patient Tobacco Use Status: Never used Tobacco e-Cigarette/Vaping Use: Never Used Second Hand Smoke Exposure: No Advance Directives Date on File: 07/31/20 service: No Current occupational status: retired Current occupation: Right Handed Sexual orientation: Straight/Heterosexual Cognitive needs: No Hearing needs: No Vision needs: No Female Reproductive History Menstrual Age of Menarche: 8 Review of Systems Const All systems reviewed & are unremarkable except as noted in HPI and below Physical Exam Const General: no acute distress, alert and awake Orientation/consciousness: patient oriented x3 HEENT Head: Yes normocephalic and Yes atraumatic Eyes EOM: EOMs intact bilaterally Resp Effort & Inspection: normal respiratory effort and able to speak in complete sentences Cardio Jugular venous distension: no JVD Skin General skin exam: turgor normal Rashes: no rashes Neuro General: patient oriented x3 Extrem Other: 5-130 deg with mild effusion and ttp medial compartment. + antalgic gait Psych Appearance: grossly normal Affect: normal affect Attitude: cooperative Results Reviewed Results Reviewed: I personally reviewed relevant radiographs Left knee varus pattern moderate to severe arthritis. Satisfactory appearance of right knee replacement. Assessment & Plan Assessment & Plan (1) Primary osteoarthritis of left knee: Code(s): M17.12 - Unilateral primary osteoarthritis, left knee Plan: This is 68 yo healthy F with left knee OA. She has failed injections activity modification NSAIDs. She had a successful knee replacement 4 years ago so she understands the process. She has been walking with a limp and feels the quality of her life is diminished. I reviewed treatment options and I recommend with knee arthroplasty. I explained to her the procedure and the details and reviewed her x-rays with.I discussed the risks benefits and alternatives including but not limited to the risk of pain, infection, stiffness, need for further surgery as well as potential medical complications such as blood clots, pulmonary embolism and cardiac complications. She expressed understanding and we will proceed forward accordingly. Plan Scribed for Kai Cortez MD by Ryan Greene, medical superintendent, on 10/04/23 at 8:45 AM, EST. Coding Level of Care Code Est Pt Level 4 (48985) Diagnoses Primary osteoarthritis of left knee M17.12
== END 2023-10-04 09:20 | disposition home or self-care (01) ==
PROVIDERS: PCP Nurse Practitioner Family; Visit Provider Orthopaedic Surgery
DX: M17.12 Unilateral primary osteoarthritis, left knee (principal)
CPT/HCPCS: 99214

== ENCOUNTER → 2023-10-04 08:26 | Outpatient (BNVA) | payer MEDICARE, OTHER, SELFPAY | PROVIDERS: PCP Nurse Practitioner Family; Visit Provider Orthopaedic Surgery | DX: M17.12 Unilateral primary osteoarthritis, left knee (principal) | CPT/HCPCS: 99212 ==

== ENCOUNTER 2024-01-13 09:01 | Outpatient (AMB) | payer MEDICARE, OTHER, SELFPAY ==
--- NOTE | 2024-01-13 06:28 | A.OFFVIS_ITS ---
Intake Intake Visit Reasons: Preop- LT TKA 01/19/24 [place] Intake Note: Zulma 68 yr old female presents today for her Preop visit for her left TKA scheduled for 01/19/24 [place]. Pain management agreement given and reviewed. Allergies No Known Allergies [No Known Allergies*] Allergy (Verified 01/13/24 09:05) Medication List - Last Reconciled 01/13/24 by Trish Lambert, RN amlodipine (Norvasc) 5 mg PO QAM buspirone 15 mg PO BID calcium carbonate (Calcium) 1,200 mg PO QAM lactobacillus comb no.10 (Probiotic) 20,000 mmu cells PO QAM methylcellulose (laxative) (Citrucel) 1,500 mg PO QAM mirtazapine 15 mg PO BEDTIME 30 days multivitamin 1 tab PO QAM olanzapine 5 mg PO BEDTIME paroxetine HCl 40 mg PO QAM pravastatin 20 mg PO QAM HPI HPI Comments 2 History of Present Illness0 Details Ms Sparks presents to the office today for preop visit. She is scheduled for left total knee arthroplasty with Dr. Cortez. She continues to have ongoing pain and difficulty with ambulation in the left knee, which is affecting her quality of life; therefore, she has elected to move forward with surgery. RT TKA done in [address] Cortez. No complications. -she did have blood transfusion post op [facility] Medical History (Updated 01/11/24 @ 13:53 by Bettina Parry RN) Arthritis Panic attacks Osteoporosis PTSD (post-traumatic stress disorder) ELIAN (generalized anxiety disorder) PAC (premature atrial contraction) History of anxiety Dyslipidemia Osteoarthritis (arthritis due to wear and tear of joints) Diverticulitis Essential hypertension Hyperkalemia Depression Surgical History (Updated 01/10/24 @ 10:19 by Bettina Parry RN) Hx of tonsillectomy Hx of tubal ligation History of total right knee replacement Hx of colonoscopy History of carpal tunnel release Family History Mother Dementia Father No problems noted. Social History Household Members: Spouse Housing: House Are you a primary healthcare financial analyst to a significant other at home: No Do you presently have visiting nurse or other home services: No Alcohol intake: never Patient Tobacco Use Status: Never used Tobacco e-Cigarette/Vaping Use: Never Used Second Hand Smoke Exposure: No Advance Directives Date on File: 07/31/20 service: No Current occupational status: retired Current occupation: Right Handed Sexual orientation: Straight/Heterosexual Cognitive needs: No Hearing needs: No Vision needs: No Female Reproductive History Menstrual Age of Menarche: 8 Review of Systems Const All systems reviewed & are unremarkable except as noted in HPI and below Physical Exam Const General: cooperative and no acute distress Orientation/consciousness: patient oriented x3 HEENT Head: Yes normal to inspection, Yes normocephalic and Yes atraumatic Eyes General: appearance normal, both eyes and all related structures Neck Neck: Yes normal visual inspection and Yes no lymphadenopathy Resp Effort & Inspection: normal respiratory effort and able to speak in complete sentences Cardio Rate: regular rate Peripheral pulses: Peripheral pulses 2+ throughout GI Inspection: Yes normal to inspection Palpation (GI): Soft to palpation Skin General skin exam: no rashes or lesions noted Neuro General: patient oriented x3 Extrem Other: Left knee: Normal to inspection. No erythema or joint effusion. ROM is 0-95 degrees. Calf supple, nontender. NVI. Psych Appearance: grossly normal Mental Status: mental status grossly normal Results Reviewed Results Reviewed: PCP clearance Assessment & Plan Assessment & Plan (1) Primary osteoarthritis of left knee: Code(s): M17.12 - Unilateral primary osteoarthritis, left knee Plan: I discussed in detail the procedure and what to expect pre and post operatively. We discussed the risks, benefits and alternatives to the surgery as well as the rehabilitation course. The risks; which include, but are not limited to infection, bleeding, nerve injury, ongoing pain, swelling, and stiffness, perioperative risk of injury to bones and soft tissues, and blood clots. I?ve answered all questions and with their understanding they have consented to move forward with Left total knee arthroplasty with Dr. Cortez Orders: Orders 2 XR knee LT 2V Today M25.562 - Pain in left knee Patient Instructions: Scribed for Cliff Clark PA-C, by Jay Gagnon medical auditor, on 01/13/2024 at 9:15 AM EST. Cliff Herron PA-C, have personally reviewed and agree with the information entered by the scribe. Coding Level of Care Code Est Pt Level 3 (01230) Diagnoses Primary osteoarthritis of left knee M17.12
== END 2024-01-13 09:45 | disposition home or self-care (01) ==
PROVIDERS: PCP Student in an Organized Health Care Education/Training Program; Visit Provider Physician Assistant
DX: M17.12 Unilateral primary osteoarthritis, left knee (principal)
CPT/HCPCS: 99024

== ENCOUNTER 2024-01-13 09:01 | Outpatient (REF) | payer MEDICARE, OTHER, SELFPAY ==
--- NOTE | ~2024-01-13 | XR_ITS ---
EXAMINATION: XR KNEE, LEFT CLINICAL INFORMATION: Pain in left knee. COMPARISON: 03/30/2022 TECHNIQUE: 4 views AP standing view of bilateral knees. 2 lateral views of the left knee. FINDINGS: AP standing View Right Knee: Redemonstration of right total knee arthroplasty in satisfactory position. Coil device projects between legs on AP view, of indeterminate etiology. Left Knee: Interval progression of marked degenerative changes with narrowing of the medial compartment and tricompartmental osteophytes. Advanced degenerative changes in the patellofemoral compartment. Trace suprapatellar effusion. XR/XR knee LT 2V IMPRESSION: 1. Redemonstration of right total knee arthroplasty in satisfactory position. 2. Interval progression of marked degenerative changes in the left knee.
== END 2024-01-13 09:02 | disposition home or self-care (01) ==
LOC: HO.HOSX 09:01
PROVIDERS: PCP Student in an Organized Health Care Education/Training Program; Visit Provider Physician Assistant
DX: Z01.818 Encounter for other preprocedural examination (principal); M17.12 Unilateral primary osteoarthritis, left knee; Z79.899 Other long term (current) drug therapy
CPT/HCPCS: 73560; 99212

== ENCOUNTER 2024-01-19 09:55 | Inpatient (IN) | payer MEDICARE, OTHER, SELFPAY ==
[2024-01-11 13:59] VITALS: BP 129/71; RESP 20; O2SAT 96; BMI 27.0
[2024-01-11 16:05] LABS: MRSA Nasal PCR NEGATIVE (Negative); SA Nasal PCR NEGATIVE (Negative)
[2024-01-19] VITALS (13 sets, daily range): BP systolic 114–146; BP diastolic 67–84; PULSE 61–98; RESP 12–18; TEMP 36.1–37; O2SAT 90–96
--- NOTE | ~2024-01-19 | XR_ITS ---
EXAMINATION: XR KNEE, LEFT CLINICAL INFORMATION: Normal knee replacement COMPARISON: 03/14/2024 TECHNIQUE: 2 views of the left knee. FINDINGS: Left total knee replacement has been performed. Prosthetic components appear appropriate in position. There is satisfactory alignment. No fracture or dislocation. Suprapatellar effusion, soft tissue air and surgical skin destiny in the immediate postoperative state. XR/XR knee LT 2V IMPRESSION: Left total knee replacement.
--- NOTE | 2024-01-19 10:00 | HO.ANESPROP2 ---
Documented by User: Cynthia Luther NP 01/18/24 14:39 HPI - Anesthesia Eval Consult details Narrative: 68yo F for Left Knee Replacement Total PAT with Dr Rose 01/11/24 Medically cleared PMFSH Active Problems Active Problems: All Active Problems (Updated 01/11/24 @ 13:53 by Bettina Parry RN) Panic disorder (Acute) Major depressive disorder (Acute) Pre-op evaluation (Acute) Mild recurrent major depression (Acute) Skin lesion (Acute) Primary osteoarthritis of left knee (Acute) Sinusitis (Acute) Osteoporosis (Acute) Well woman exam (Acute) Status post total right knee replacement (Acute) Palpitations (Acute) Hypercalcemia (Acute) PAC (premature atrial contraction) (Acute) Preoperative examination (Acute) Primary osteoarthritis of right knee (Acute) ELIAN (generalized anxiety disorder) (Acute) Essential hypertension (Acute) Dyslipidemia (Acute) Past Medical History Medical History Arthritis Panic attacks Osteoporosis PTSD (post-traumatic stress disorder) ELIAN (generalized anxiety disorder) PAC (premature atrial contraction) History of anxiety Dyslipidemia Osteoarthritis (arthritis due to wear and tear of joints) Diverticulitis Essential hypertension Hyperkalemia Depression Family History Family History Mother Dementia Father No problems noted. Family history of problems with anesthesia: No Surgical History Surgical History Hx of tonsillectomy Hx of tubal ligation History of total right knee replacement Hx of colonoscopy History of carpal tunnel release History of Problems with Anesthesia: No Social History Social History Household Members: Spouse Housing: House Are you a primary care management coordinator to a significant other at home: No Do you presently have visiting nurse or other home services: No Alcohol intake: never Patient Tobacco Use Status: Never used Tobacco e-Cigarette/Vaping Use: Never Used Second Hand Smoke Exposure: No Use of substances other than those prescribed or required for medical reasons: No Have you been hit, kicked, punched, or otherwise hurt by someone within the past year? If so, by whom?: No Are you DNR?: Yes Advance Directives: Yes (states is HCP) Advance Directives Information Provided: Yes Advance Directives on File: Yes Advance Directives Date on File: 07/31/20 Recently lost weight without trying: No Eating poorly because of decreased appetite: No Nutrition Risks: No Nutritional Risk Poor oral hygiene: No (one extracted tooth upper right back) service: No Current occupational status: retired Current occupation: Right Handed Sexual orientation: Straight/Heterosexual Cognitive needs: No Hearing needs: No Vision needs: No Meds Allergies Allergy/AdvReac Type Severity Reaction Status Date / Time No Known Allergies Allergy Verified 01/13/24 09:05 [No Known Allergies*] Home Medications Medication Instructions Recorded Confirmed Last Taken Type olanzapine 2.5 mg tablet 5 mg PO BEDTIME 06/29/23 01/13/24 06/28/23 History pravastatin 20 mg tablet 20 mg PO QAM 06/29/23 01/13/24 06/30/23 20:30 History buspirone 15 mg tablet 15 mg PO BID 01/10/24 01/13/24 Unknown History paroxetine HCl 40 mg tablet 40 mg PO QAM 01/10/24 01/13/24 Unknown History amlodipine 5 mg tablet (Norvasc) 5 mg PO QAM 01/11/24 01/13/24 Unknown History calcium carbonate 600 mg calcium 1,200 mg PO QAM 01/11/24 01/13/24 Unknown History (1,500 mg) tablet (Calcium) lactobacillus comb no.10 20 20,000 mmu cells PO QAM 01/11/24 01/13/24 Unknown History billion cell capsule (Probiotic) methylcellulose (laxative) 500 mg 1,500 mg PO QAM constipation 01/11/24 01/13/24 Unknown History tablet (Citrucel) multivitamin 1 tab PO QAM 01/11/24 01/13/24 Unknown History Exam Height,Weight and Vital Signs: Height 5 ft 7.5 in Weight 79.379 kg Last Vital Signs Resp 20 01/11/24 13:59 BP 129/71 01/11/24 13:59 Pulse Ox 96 01/11/24 13:59 O2 Del Method Room Air 01/11/24 13:59 Pertinent Lab Results Pertinent Lab Results: Laboratory Tests 01/11/24 01/11/24 14:15 14:45 Nasal Screen MRSA (PCR) NEGATIVE Nasal S. aureus Screen NEGATIVE Nasal MRSA/S.aureus Interp SEE NOTE Blood Type O Positive Antibody Screen NEGATIVE CBC and BMP from outside facility 10/2023 WNL Narrative Narrative: EKG 07/2023 NSR @ 78 Assessment and Plan Assessment Anesthesia Assessment: Chart Reviewed Final Anesthetic Review Family History of Problems with Anesthesia: No History of Problems with Anesthesia: No Documented by User: Trish Monzon DO 01/19/24 10:11 PMFSH Past Medical History Medical History Arthritis Panic attacks Osteoporosis PTSD (post-traumatic stress disorder) ELIAN (generalized anxiety disorder) PAC (premature atrial contraction) History of anxiety Dyslipidemia Osteoarthritis (arthritis due to wear and tear of joints) Diverticulitis Essential hypertension Hyperkalemia Depression Family History Family History Mother Dementia Father No problems noted. Family history of problems with anesthesia: No Surgical History Surgical History Hx of tonsillectomy Hx of tubal ligation History of total right knee replacement Hx of colonoscopy History of carpal tunnel release History of Problems with Anesthesia: No Social History Social History Household Members: Spouse Housing: House Are you a primary care management coordinator to a significant other at home: No Do you presently have visiting nurse or other home services: No Alcohol intake: never Patient Tobacco Use Status: Never used Tobacco e-Cigarette/Vaping Use: Never Used Second Hand Smoke Exposure: No Use of substances other than those prescribed or required for medical reasons: No Have you been hit, kicked, punched, or otherwise hurt by someone within the past year? If so, by whom?: No Are you DNR?: Yes Advance Directives: Yes (states is HCP) Advance Directives Information Provided: Yes Advance Directives on File: Yes Advance Directives Date on File: 07/31/20 Recently lost weight without trying: No Eating poorly because of decreased appetite: No Nutrition Risks: No Nutritional Risk Poor oral hygiene: No (one extracted tooth upper right back) service: No Current occupational status: retired Current occupation: Right Handed Sexual orientation: Straight/Heterosexual Cognitive needs: No Hearing needs: No Vision needs: No Meds Allergies Allergy/AdvReac Type Severity Reaction Status Date / Time No Known Allergies Allergy Verified 01/13/24 09:05 [No Known Allergies*] Home Medications Medication Instructions Recorded Confirmed Last Taken Type olanzapine 2.5 mg tablet 5 mg PO BEDTIME 06/29/23 01/13/24 06/28/23 History pravastatin 20 mg tablet 20 mg PO QAM 06/29/23 01/13/24 06/30/23 20:30 History buspirone 15 mg tablet 15 mg PO BID 01/10/24 01/13/24 Unknown History paroxetine HCl 40 mg tablet 40 mg PO QAM 01/10/24 01/13/24 Unknown History amlodipine 5 mg tablet (Norvasc) 5 mg PO QAM 01/11/24 01/13/24 Unknown History calcium carbonate 600 mg calcium 1,200 mg PO QAM 01/11/24 01/13/24 Unknown History (1,500 mg) tablet (Calcium) lactobacillus comb no.10 20 20,000 mmu cells PO QAM 01/11/24 01/13/24 Unknown History billion cell capsule (Probiotic) methylcellulose (laxative) 500 mg 1,500 mg PO QAM constipation 01/11/24 01/13/24 Unknown History tablet (Citrucel) multivitamin 1 tab PO QAM 01/11/24 01/13/24 Unknown History Exam Exam Date and Time: January 19, 2024 1009 Height,Weight and Vital Signs: Height 5 ft 7.5 in Weight 79.379 kg Last Vital Signs Resp 20 01/11/24 13:59 BP 129/71 01/11/24 13:59 Pulse Ox 96 01/11/24 13:59 O2 Del Method Room Air 01/11/24 13:59 Height 5 ft 7.5 in Weight 79.379 kg Vital Signs Respiratory Rate 20 01/11/24 13:59 Blood Pressure 129/71 01/11/24 13:59 Pulse Oximetry 96 01/11/24 13:59 Oxygen Delivery Method Room Air 01/11/24 13:59 Temperature 98.3 F 01/19/24 09:56 Pulse Rate 84 01/19/24 09:56 Respiratory Rate 15 01/19/24 09:56 Blood Pressure 146/81 H 01/19/24 09:56 Pulse Oximetry 92 01/19/24 09:56 Oxygen Delivery Method Room Air 01/19/24 09:56 Airway Mallampati Class: I TM Dist: >3cm Neck ROM: Full Loose/Missing/Broken Teeth: No (patient denies any loose or broken teeth) Heart: S1S2 Lungs: CTAB Assessment and Plan Assessment Anesthesia Assessment: Anesthesia Plan Discussed and Chart Reviewed Final Anesthetic Review Family History of Problems with Anesthesia: No History of Problems with Anesthesia: No NPO: Yes ASA Class: II Final Preanesthetic Review: No Changes in Pt Med Stat, Meds/Allgs Chart Reviewed, Consent Obtained/Reviewed and Anes Risks/Benef Reviewed Patient Risk: Low Procedure Risk: Intermediate Anesthetic Plan Anesthetic Plan: Spinal, Regional Block (left adductor canal and left ipack) and Agree w/ Assess. and Plan Disposition: Standard PACU
[2024-01-19] MEDS: Lactated Ringers 1,000 ML 100 ML IVCONT ×3 (10:19→23:59)
--- NOTE | 2024-01-19 10:22 | MHC.SHP ---
Pre-Procedural Eval Section A - 24 Hr Update-Section A only Date of Service: 01/19/24 The patient is an INPATIENT: No Changes since office visit: No Cold of Flu in the past 2 weeks, No New Medical Problems, No Changes in Medication and No Patient answered all questions The patient has been examined within 24 hours of the surgical procedure. The History & Physical has been completed within 30 days and I have reviewed it.: Yes Section B - Complete if H&P > 30 days Chief Complaint: LT TKA Allergies: Allergies Allergy/AdvReac Type Severity Reaction Status Date / Time No Known Allergies Allergy Verified 01/19/24 10:17 [No Known Allergies*] Plan I have reviewed the history and physical and performed a pertinent physical examination on my patient. No changes have occurred unless specified. Time Spent With Patient Time: Total time managing care of this patient today ____ minutes.
--- NOTE | 2024-01-19 12:54 | PHA.MEDREC ---
Pharmacy Consult ? Medication Reconciliation Pharmacy has reviewed the medication reconciliation completed by nursing. Also utilized notes from office visit on 01/13/24.
--- NOTE | 2024-01-19 13:45 | P.BOP_ITS ---
Brief Operative Note Date of Service: 01/19/24 Pre-op diagnosis: Left knee OA Post-op diagnosis: same Procedure: Left Knee OA Implants: [employer] cemented PS ps/32a Surgeon: Kai Cortez MD Anesthesia: GETA and regional Was an Radiologic Technology Instructor used for this Procedure?: Yes Radiologic Technology Instructor: Margret Francis Estimated blood loss (mL): 20 Tourniquet time (min): 5 IV fluids (mL): 1,200 Pathology: none sent Condition: stable Disposition: PACU
[2024-01-19] MEDS: 0.9 % Sodium Chloride Flush 3 ML SYRINGE IVFLUSH ×2 (15:31→23:59)
[2024-01-19] MEDS: oxyCODONE HCl Immed Release 5 MG TABLET PO ×2 (15:58→20:13)
--- NOTE | 2024-01-19 16:13 | P.CONHOSP_ITS ---
History of Present Illness Data of Consult Service Date: 01/19/24 Primary Care Provider: JENNIE Rosales [facility] Reason for consult: Medical management Patient is a 68-year-old female with a PMH significant for HTN, HLD, osteoarthritis, and mood disorder who was admitted to the hospital under orthopedics for elective left TKA. Medical consult for routine medical management. Patient reports pain well managed with current therapies, rates her pain as a 2/10. Has already been of bed to commode. Had been placed on 3L of supplemental oxygen, though currently satting at 95% on RA so oxygen discontinued at this time. Patient also has been using her incentive spirometry 10 times every hour. Currently has no medical complaints at this time. Denies SOB. No chest pain/pressure, palpitations. No fever, chills, nausea, abdominal pain. Denies numbness or tingling in extremities. Review of Systems Review of Systems: Pain well controlled, currently 2/10 Patient currently has no acute medical complaints at this time [facility] Medical History Arthritis Panic attacks Osteoporosis PTSD (post-traumatic stress disorder) ELIAN (generalized anxiety disorder) PAC (premature atrial contraction) History of anxiety Dyslipidemia Osteoarthritis (arthritis due to wear and tear of joints) Diverticulitis Essential hypertension Hyperkalemia Depression Family History Mother Dementia Father No problems noted. Surgical History Hx of tonsillectomy Hx of tubal ligation History of total right knee replacement Hx of colonoscopy History of carpal tunnel release Social History Household Members: Spouse Housing: House Are you a primary point of care technician to a significant other at home: No Do you presently have visiting nurse or other home services: No Alcohol intake: never Patient Tobacco Use Status: Never used Tobacco e-Cigarette/Vaping Use: Never Used Second Hand Smoke Exposure: No Use of substances other than those prescribed or required for medical reasons: No Have you been hit, kicked, punched, or otherwise hurt by someone within the past year? If so, by whom?: No Do you feel safe in your current relationship?: Yes Is there a partner from a previous relationship who is making you feel unsafe now?: No Are you made to feel afraid or neglected: No Are you DNR?: Yes Advance Directives: Yes (states is HCP) Advance Directives Information Provided: Yes Advance Directives on File: Yes Advance Directives Date on File: 07/31/20 Do you have thoughts of harming others: None Do you have a plan to hurt others: No Plan Recently lost weight without trying: No Eating poorly because of decreased appetite: No Nutrition Risks: No Nutritional Risk Patient : No : No Poor oral hygiene: No (one extracted tooth upper right back) service: No Current occupational status: retired Current occupation: Right Handed Sexual orientation: Straight/Heterosexual Cognitive needs: No Hearing needs: No Vision needs: No Meds Allergies Allergy/AdvReac Type Severity Reaction Status Date / Time No Known Allergies Allergy Verified 01/19/24 10:17 [No Known Allergies*] Active Medications: Current Medications Acetaminophen (Acetaminophen 325 Mg Tablet) 650 mg PO Q6H PRN PRN Reason: Pain, Mild (Pain Scale 1-3) Amlodipine Besylate (Amlodipine Besylate 5 Mg Tablet) 5 mg PO DAILY HARESH; Protocol Buspirone HCl (Buspirone Hcl 5 Mg Tablet) 15 mg PO BID HARESH Calcium Carbonate (Calcium Carbonate 500 Mg Tablet) 1,000 mg PO DAILY HARESH Celecoxib (Celecoxib 200 Mg Capsule) 200 mg PO BID HARESH Docusate Sodium (Docusate Sodium 100 Mg Capsule) 100 mg PO BID HARESH Hydromorphone HCl (Hydromorphone Hcl 0.5 Mg/0.5 Ml Syringe) 0.25 mg IVPUSH Q4H PRN; Protocol PRN Reason: Pain, Severe (Pain Scale 7-10) Lactated Ringer's (Lr) 1,000 mls @ 100 mls/hr IVCONT .Q10H HARESH Last Admin: 01/19/24 14:26 Dose: 100 mls/hr Cefazolin Sodium/Dextrose (Ancef) 2 gm in 50 mls @ 100 mls/hr IV POSTOP ONE Stop: 01/19/24 18:59 Mirtazapine (Mirtazapine 15 Mg Tablet) 15 mg PO BEDTIME HARESH Multivitamins/Vitamin C (Multivitamin Tablet) 1 tab PO DAILY [facility] Olanzapine (Olanzapine 5 Mg Tablet) 5 mg PO BEDTIME HARESH Ondansetron HCl (Ondansetron Hcl 4 Mg/2 Ml Vial) 4 mg IVPUSH Q8H PRN PRN Reason: Nausea and Vomiting Oxycodone HCl (Oxycodone Hcl Immed Release 5 Mg Tablet) 5 mg PO Q4H PRN PRN Reason: Pain, Moderate(Pain Scale 4-6) Last Admin: 01/19/24 15:58 Dose: 5 mg Oxycodone HCl (Oxycodone Hcl Er 10 Mg Tab.Er.12h) 10 mg PO BID [facility] Paroxetine HCl (Paroxetine Hcl 40 Mg Tablet) 40 mg PO DAILY [facility] Pravastatin Sodium (Pravastatin Sodium 20 Mg Tablet) 20 mg PO DAILY [facility] Psyllium Hydrophilic Mucilloid (Psyllium Seed 3.7 Gm Packet) 3.7 gm PO DAILY [facility] Sodium Chloride (0.9 % Sodium Chloride Flush 3 Ml Syringe) 3 ml IVFLUSH QSHIFT [facility] Last Admin: 01/19/24 15:31 Dose: 3 ml Home Medications Medication Instructions Recorded Confirmed Last Taken Type olanzapine 2.5 mg tablet 5 mg PO BEDTIME 06/29/23 01/13/24 01/18/24 History pravastatin 20 mg tablet 20 mg PO DAILY 06/29/23 01/19/24 01/18/24 History buspirone 15 mg tablet 15 mg PO BID 01/10/24 01/13/24 01/19/24 07:30 History paroxetine HCl 40 mg tablet 40 mg PO DAILY 01/10/24 01/19/24 01/19/24 07:30 History amlodipine 5 mg tablet (Norvasc) 5 mg PO DAILY 01/11/24 01/19/24 01/19/24 07:30 History calcium carbonate 600 mg calcium 1,200 mg PO DAILY 01/11/24 01/19/24 01/18/24 History (1,500 mg) tablet (Calcium) lactobacillus comb no.10 20 20,000 mmu cells PO DAILY 01/11/24 01/19/24 01/18/24 History billion cell capsule (Probiotic) methylcellulose (laxative) 500 mg 1,500 mg PO DAILY constipation 01/11/24 01/19/24 01/18/24 History tablet (Citrucel) multivitamin 1 tab PO DAILY 01/11/24 01/19/24 01/18/24 History Physical Exam Vital Signs and Narrative: Vital Signs: Last Vital Signs Temp 97 F 01/19/24 15:00 Pulse 65 01/19/24 15:00 Resp 16 01/19/24 15:00 BP 135/83 01/19/24 15:00 Pulse Ox 96 01/19/24 15:00 O2 Del Method Nasal Cannula 01/19/24 15:00 O2 Flow Rate 3 01/19/24 15:00 BMI result Body Mass Index 27.0 General: AOx3, no acute distress Resp: CTA bilaterally CVS: S1, S2, RRR GI: +BS, NT, no distention Skin: Warm, dry Neuro: Cranial nerves II-XII grossly intact bilaterally. Motor grossly intact bilaterally Extremities: No edema. Left knee with appropriate tenderness at surgical sites, wrapped in clean dressing. Psych: Appropriate affect Results Imaging Radiologist's Impressions: Impressions Knee X-Ray 01/19/24 14:38 IMPRESSION: Left total knee replacement. Assessment and Plan (1) Status post total left knee replacement: Status: Acute Plan Patient is a 68-year-old female with a PMH significant for HTN, HLD, osteoarthritis, and mood disorder who was admitted to the hospital under orthopedics for elective left TKA. Medical consult for routine medical management. Patient reports pain well managed with current therapies, rates her pain as a 2/10. S/P dell TKA Pain well controlled with current therapies Plan as per orthopedics HTN Continue amlodipine HLD Continue statin Mood disorder/anxiety Continue buspirone, mirtazapine, olanzapine, and paroxetine Thank you for allowing us to participate in the care of this patient. Signing off at this time. Please re-consult if any acute complaints or issues arise. Attending: Dr. Leiva
[2024-01-19] MEDS: ceFAZolin Sodium/Dextrose,Iso 2 GM/50 ML PIGGYBACK IV (18:10)
[2024-01-19] MEDS: Acetaminophen 325 MG TABLET 650 MG PO (19:26)
[2024-01-19] MEDS: Celecoxib 200 MG CAPSULE PO (19:32)
[2024-01-19] MEDS: busPIRone HCl 5 MG TABLET 15 MG PO (19:32)
[2024-01-19] MEDS: Docusate Sodium 100 MG CAPSULE PO (19:32)
[2024-01-19] MEDS: OLANZapine 5 MG TABLET PO (19:33)
[2024-01-19] MEDS: oxyCODONE HCl ER 10 MG TAB.ER.12H PO (19:33)
[2024-01-19] MEDS: Mirtazapine 15 MG TABLET PO (19:33)
--- NOTE | 2024-01-19 20:16 | PC.NURSE ---
Addendum entered by Christine Ballard RN 01/19/24 20:36: Patient was assessed by Respiratory therapist,lungs clear,denies SOB,no concerns,will monitor Addendum entered by Christine Ballard RN 01/19/24 20:20: Respiratory Therapist will be in to assess patient Original Note: Sat 90% on RA ,up to 955 with deep breathing,sat goes back down to 90% when patient lie down,oxygen placed on at 3l,sat 96%,will monitor
[2024-01-20] MEDS: HYDROmorphone HCl 0.5 MG/0.5 ML SYRINGE 0.25 MG IVPUSH ×2 (00:05→10:54)
[2024-01-20 02:06] VITALS: BP 114/56; PULSE 77; RESP 18; TEMP 36.7; O2SAT 92
[2024-01-20] MEDS: oxyCODONE HCl Immed Release 5 MG TABLET PO (05:58)
[2024-01-20 06:26] LABS: Basophils Percent Auto 0.1 % (0-2); Hemoglobin 13.2 g/dl (12.0-16.0); Imm Gran Abs Auto 0.08 X10*3/uL (0.00-0.03); Imm Gran Pct Auto 0.4 % (0.0-0.4); Lymphocytes Absolute Auto 2.4 X10*3/uL (1.2-4.9); Lymphocytes Percent Auto 13.3 % (20-40); MANUAL DIFF FLAG SCAN; Mean Corpuscular Hemoglobin 31.2 pg (27.0-33.0); Mean Corpuscular Volume 94.6 fL (80.0-98.0); Mean Platelet Volume 9.9 fL (9.4-12.3); Monocytes Absolute Auto 1.7 X10*3/uL (0.1-1.2); Monocytes Percent Auto 9.6 % (2-11); Neutrophils Absolute Auto 13.9 x10*3/uL (2.0-8.3); Neutrophils Percent Auto 76.6 % (45-73); Platelet Count 248 X10*3/uL (160-400); Red Blood Count 4.23 X10*6/uL (4.20-5.50); Red Cell Distribution Width 12.8 % (11.0-16.0); SCAN SMEAR FLAG 1; White Blood Count 18.1 X10*3/uL (4.8-10.8)
[2024-01-20 06:38] LABS: Anion Gap 10 (12-20); Blood Urea Nitrogen 15 mg/dL (9-16); Calcium 8.5 mg/dL (8.4-10.2); Carbon Dioxide 29 mmol/L (22-29); Chloride 105 mmol/L (96-108); Creatinine Clr Calc Pharmacy 87.3; Estimated Glomerular Filt Rate > 60; Glucose Fasting 114 mg/dL (60-99); Potassium 4.1 mmol/L (3.3-5.1); Sodium 140 mmol/L (135-145)
[2024-01-20 07:26] LABS: SLIDE REVIEW VERIFIED
[2024-01-20 07:29] VITALS: BP 122/72; PULSE 77; RESP 20; TEMP 36.5; O2SAT 95
[2024-01-20] MEDS: busPIRone HCl 5 MG TABLET 15 MG PO (08:22)
[2024-01-20] MEDS: Celecoxib 200 MG CAPSULE PO (08:23)
[2024-01-20] MEDS: Multivitamin TABLET 1 TAB PO (08:23)
[2024-01-20] MEDS: Pravastatin Sodium 20 MG TABLET PO (08:24)
[2024-01-20] MEDS: PARoxetine HCL 40 MG TABLET PO (08:24)
[2024-01-20] MEDS: Docusate Sodium 100 MG CAPSULE PO (08:24)
[2024-01-20] MEDS: amLODIPine Besylate 5 MG TABLET PO (08:24)
[2024-01-20] MEDS: oxyCODONE HCl ER 10 MG TAB.ER.12H PO (08:24)
--- NOTE | 2024-01-20 09:17 | MHC.CM.PN ---
Addendum entered by Ayana Hull 01/20/24 14:08: DP: PT HAS BEEN MEDICALLY CLEARED FOR DC HOME WITH NEW [facility]. [facility] UPDATED. [facility] WILL TRANSPORT Original Note: [facility] DELIVERED PT LIVES WITH [facility]. INDEPENDENT AND DRIVES. USES CANE ON OCCASION. +HCP (COPY AT HOME, REQUESTED) PCP HIEU SCHNEIDER DP: HOME WITH PATIENT'S FIRST CHOICE FOR HOME P.T., [facility]. REFERRAL SENT. [facility] WILL TRANSPORT HOME. CM WILL CONTINUE TO FOLLOW FOR ANY CHANGE IN DC PLAN/NEEDS.
[2024-01-20 12:00] VITALS: BP 130/61; PULSE 76; RESP 18; O2SAT 95
--- NOTE | 2024-01-20 13:59 | P.DS_ITS ---
DS: Providers Provider Date of Service: 01/20/24 Date of admission: 01/19/24 09:55 Primary care physician: JENNIE Rosales Consults: 01/19/24 15:09 Consult to Hospitalist Routine Comment: Consulting Provider: Hospitalist Reason For Exam: routine medical mangement DS: Diagnosis Discharge Diagnosis (1) Status post total left knee replacement: Status: Acute DS: Summary Hospital Course Hospital Course: The patient underwent a successful LT total knee arthroplasty on 01/19/24, was transferred to PACU and then to the floor to recover. During their stay, their vitals were stable, afebrile at 97.7 . Labs were unremarkable, H/H 13.2/40.0. POD 1 she was started on Asa for DVT ppx, they also received Physical Therapy services twice a day. Physical therapy should include gait training, ROM to tolerance and quad strength. He is WBAT. Prior to discharge, his dressing was changed, incision clean dry and intact, new Aquacel dressing applied. The Aquacel dressing should remain intact and dry at all times. Any concerns with the dressing, please contact orthopedic office. No showering. The plan is to be discharged home with vna Time Attestation Discharge Coordination Time (in mins): 30 Quality: Safe Use of Opioids Does Pt have an Active Cancer Diagnosis on the Problem List?: No Quality: Stroke Does the patient have a stroke diagnosis?: No Physical Exam Vital Signs: Vital Signs: Last Vital Signs Temp 97.7 F 01/20/24 07:29 Pulse 76 01/20/24 12:00 Resp 18 01/20/24 12:00 BP 130/61 01/20/24 12:00 Pulse Ox 95 01/20/24 12:00 O2 Del Method Room Air 01/20/24 12:00 O2 Flow Rate 3 01/20/24 02:06 BMI result Body Mass Index 27.0 DS: Data Data Completed and Pending Completed studies during hospitalization [Text1]: Procedures Replacement of Right Knee Joint with Synthetic Substitute, Uncemented, Open Approach (11/05/20) Pending studies at discharge: Pending at discharge 01/19/24 13:22 Surgical [PTH] Routine Labs on day of discharge: Laboratory Results - last 24 hr 01/20/24 06:18 WBC 18.1 H RBC 4.23 Hgb 13.2 Hct 40.0 MCV 94.6 MCH 31.2 MCHC 33.0 RDW 12.8 Plt Count 248 D MPV 9.9 Immature Gran % (Auto) 0.4 Neut % (Auto) 76.6 H Lymph % (Auto) 13.3 L [place] % (Auto) 9.6 Eos % (Auto) 0.0 Baso % (Auto) 0.1 Lymph # (Auto) 2.4 [place] # (Auto) 1.7 H Eos # (Auto) 0.0 Baso # (Auto) 0.0 Abs Immat Gran (auto) 0.08 H Absolute Neuts (auto) 13.9 H Absolute Nucleated RBC 0.000 Nucleated RBC % (auto) 0.0 Smear Tech's Comments VERIFIED Sodium 140 Potassium 4.1 Chloride 105 Carbon Dioxide 29 Anion Gap 10 L BUN 15 Creatinine 0.65 Estim Creat Clear Calc 87.3 Estimated GFR > 60 Fasting Glucose 114 H Calcium 8.5 D Discharge Plan Discharge Anticipated Discharge Date/Time: 01/20/24 13:58 Patient Disposition: Home Health Service Discharge Diagnosis: lt tka Referrals: Cliff Clark PA-C [Physician Accounting Machine Operator] - 2 Weeks (02/03/24 11:30 [facility] Cliff Clark PA-C ) Discharge Medications: New celecoxib 200 mg Capsule 200 mg PO BID 30 Days Qty: 60 0RF acetaminophen 325 mg Tablet 650 mg PO Q6H PRN (Reason: Pain, Mild (Pain Scale 1-3)) 30 Days Qty: 240 0RF docusate sodium 100 mg Capsule 100 mg PO BID 14 Days Qty: 28 0RF oxycodone 5 mg Tablet 5 mg PO Q4H PRN (Reason: Pain, Moderate(Pain Scale 4-6)) 7 Days Qty: 42 0RF Rx Instructions: Partial Fill upon patient request. Continued mirtazapine 15 mg Tablet 15 mg PO BEDTIME 30 Days Qty: 30 2RF olanzapine 2.5 mg tablet 5 mg PO BEDTIME pravastatin 20 mg tablet 20 mg PO DAILY paroxetine HCl 40 mg tablet 40 mg PO DAILY buspirone 15 mg tablet 15 mg PO BID Probiotic 20 billion cell Capsule 20,000 mmu cells PO DAILY Rx Instructions: administer with a meal multivitamin Tablet 1 tab PO DAILY amlodipine [Norvasc] 5 mg tablet 5 mg PO DAILY calcium carbonate [Calcium 600] 600 mg calcium (1,500 mg) tablet 1,200 mg PO DAILY Citrucel 500 mg tablet 1,500 mg PO DAILY Rx Instructions: Take two tablets by mouth twice a day Discharge Orders: Discharge Order (Routine); Ordered 01/20/24 Ordered By: Cliff Clark Diet: Regular diet Activity on Discharge: Use cane or walker Stand Alone Forms: Patient Portal Discharge page Print Language: Italian Care Plan Goals: Restore function of joint Health Concerns: none Plan of Treatment: Physical Therapy Pain management DVT prophylaxis Assessment: Physical Therapy for Total knee arthroplasty: WBAT, gait training, ROM 0-12, quad strength * Limit stair climbing * No showering, no tub bath-keep dressing clean, dry and intact * No driving x6 weeks * Continue Aspirin twice a day x 6 weeks * Follow up [place] [facility] [place]: * --you will also have your first out patient PT eval on the day of your post op appt-so please plan on being in the office that day for an extended period of time.
--- NOTE | 2024-01-20 14:39 | HO.POSTANES ---
Post Anesthesia Evaluation Post Anesthesia Evaluation Date of Service: 01/20/24 Vital Signs: Vital Signs Temp Pulse Resp BP Pulse Ox O2 Del Method 01/20/24 12:00 76 18 130/61 95 Room Air 01/20/24 07:29 97.7 F 77 20 122/72 95 Room Air Anesthesia: Spinal and Nerve Block Mental Status: Awake Pain Control: Satisfactory Nausea/Vomiting: None Hydration: Adequate Anesthesia-Related Issues: No Anes. Related Issues
--- NOTE | 2024-01-20 15:31 | W.MHC.F2F ---
Service Date Service Date: 01/20/24 Encounter Date of encounter: 01/20/24 Reasons for Services Signs and symptoms assessed: Weakness, poor balance, poor gait mechanics Reason for physical therapy: home safety and mobility, therapeutic exercises, restore joint function and ADL training Reason for occupational therapy: home safety and mobility, therapeutic exercises, restore joint function, gait/transfer training and ADL training Homebound: Leaving the home is medically contraindicated at this time without the asist of a device and/or another person due th the listed conditions above and below. Reason homebound: unsteady gait / fall risk, pain with ambulation and unable to drive Homebound supporting statement: Pt. is considered home bound due to recent surgery. Unable to drive, poor balance, poor gait mechanics. Certification: Based on the above findings, I certify that this patient is confined to the home and needs intermittent penitentiary care, physical therapy and/or speech therapy, or continues to need occupational therapy. The patient is under my care, and I have initiated the establishment of the plan of care. The patient will be followed by a physician who will periodically review the plan of care. Time Spent With Patient Time: Total time managing care of this patient today ____ minutes.
--- NOTE | 2024-01-21 17:06 | W.PM.OPN ---
Operative Note Operative Note Date of Service: 01/19/24 Narrative: Date of Service: 01/19/24 Pre-op diagnosis: Left knee OA Post-op diagnosis: same Procedure: Left Knee OA Implants: [place] [employer] cemented PS 01/19/ps/32a Surgeon: Kai Cortez MD Anesthesia: GETA and regional Was an Small Wind Energy Installer used for this Procedure?: Yes Small Wind Energy Installer: Margret Francis Estimated blood loss (mL): 20 Tourniquet time (min): 5 IV fluids (mL): 1,200 Pathology: none sent Condition: stable Disposition: PACU Procedure in detail: The patient was brought to the operating room and prepped and draped in standard sterile fashion. A time-out was called to identify proper site proper procedure proper surgeon and IV antibiotics were administered. 1 g of IV tranexamic acid was administered. I began by making a midline incision to the retinaculum and performed a medial parapatellar arthrotomy. The patella was translated laterally and the knee was flexed up. There was tricompartmental disease. I performed a small medial peel and resected the infrapatellar fat pad. Ric's line was then used to drill my intramedullary femoral guide and my distal femur cut of 12 mm was made in 5 degrees of valgus while protecting the soft tissues. I then measured a #4 femur and placed my cutting guide and made my anterior posterior and chamfer cuts protecting the soft tissues at all times. I then made my box but removing the PCL. Once I was satisfied with my cuts I turned my attention to the tibia. I removed the meniscus medially and laterally and , using an external cutting guide, in line with the tibial crest and the third ray, I made my distal tibial cut in 0 deg slope of while protecting the posterior soft tissues at all times. An extension block was used to confirm appropriate amount of bony resection. I then sized a #4 tibia and once I was satisfied that there was complete tibial coverage I placed my trial and with the trial femur in place took the knee through range of motion. I was satisfied with the extension and flexion as well as the balance at 0, 30 and 90 degrees. I then turned my attention to the patella where I removed 1 cm from the undersurface of the patella and then trialed a 32a patellar button. Again the knee was taken through range of motion I was satisfied with the tracking. I then prepared the tibia with a drill and punch. A femoral bone plug was placed and the knee was irrigated copiously. I then cemented the patella, tibia and femur in standard fashion. Axial compression and a clamp were used while the cement dried. Once the cement was hard on the back table all excess cement was removed and I trialed different inserts until I selected a #9ps insert. The final insert was placed and local TXA was administered. The knee was then closed with a running Quill suture, a 3 0 Vicryl and destiny on the skin. Patient was then placed in sterile dressing and brought to recovery room in stable condition there were no known complications.
== END 2024-01-20 14:25 | disposition home health service (06) | DRG 470 ==
LOC: HO.SSSA 10:04 → HO.S3 14:47
PROVIDERS: Physician Assistant; Admitting Provider Orthopaedic Surgery; PCP Student in an Organized Health Care Education/Training Program; Visit Provider Orthopaedic Surgery
PROC: 0SRD0J9 Replacement of Left Knee Joint with Synthetic Substitute, Cemented, Open Approach (ICD-10-PCS; CPT 27447; principal; 2024-01-19 12:10)
DX: M17.12 Unilateral primary osteoarthritis, left knee (principal); I10 Essential (primary) hypertension; E78.5 Hyperlipidemia, unspecified; F41.1 Generalized anxiety disorder; G89.18 Other acute postprocedural pain; Z79.899 Other long term (current) drug therapy
CPT/HCPCS: 36415; 73560; 80048; 85025; 86850; 86900; 86901; 87640; 87641; 88304; 88305; 88311; 97110; 97161; C1713; C1776; J0131; J0665; J0690; J1100; J1170; J2371; J2405; J2704; J2795; J3010; J7120

== ENCOUNTER → 2024-01-19 09:55 | Outpatient (BNV) | payer MEDICARE, OTHER, SELFPAY | PROVIDERS: Admitting Provider Orthopaedic Surgery; PCP Student in an Organized Health Care Education/Training Program; Visit Provider Student in an Organized Health Care Education/Training Program | DX: I10 Essential (primary) hypertension (principal); E78.49 Other hyperlipidemia; Z96.652 Presence of left artificial knee joint | CPT/HCPCS: 99222 ==

== ENCOUNTER → 2024-01-19 09:55 | Outpatient (BNV) | payer MEDICARE, OTHER, SELFPAY | PROVIDERS: Admitting Provider Orthopaedic Surgery; PCP Student in an Organized Health Care Education/Training Program; Visit Provider Orthopaedic Surgery | DX: Z47.1 Aftercare following joint replacement surgery (principal); Z96.652 Presence of left artificial knee joint | CPT/HCPCS: 27447; 99024; G0180 ==

== ENCOUNTER 2024-02-03 11:12 | Outpatient (AMB) | payer MEDICARE, OTHER, SELFPAY ==
--- NOTE | 2024-02-03 11:17 | A.OFFVIS_ITS ---
Intake Intake Visit Reasons: PO LT TKA 01/19/24 NE Intake Note: Zulma a 68 year old female who presents today for a post operative left TKA on 01/19/24 NE. Patient reports she is doing well, stating a little discomfort however pain has been tolerable. Allergies No Known Allergies [No Known Allergies*] Allergy (Verified 02/03/24 11:21) Medication List - Last Reconciled 02/03/24 by Cliff Clark PA-C acetaminophen 650 mg (2 x 325 mg) PO Q6H PRN 30 days amlodipine (Norvasc) 5 mg PO DAILY buspirone 15 mg PO BID calcium carbonate (Calcium) 1,200 mg PO DAILY celecoxib 200 mg PO BID 30 days docusate sodium 100 mg PO BID 14 days lactobacillus comb no.10 (Probiotic) 20,000 mmu cells PO DAILY methylcellulose (laxative) (Citrucel) 1,500 mg PO DAILY mirtazapine 15 mg PO BEDTIME 30 days multivitamin 1 tab PO DAILY olanzapine 5 mg PO BEDTIME oxycodone 5 mg PO Q4H PRN 7 days paroxetine HCl 40 mg PO DAILY pravastatin 20 mg PO DAILY HPI PO LT TKA 01/19/24 NE HPI Details 68-year-old female returns to the office today status post left total knee arthroplasty with Dr. Cortez on January 18. Her last session with her home therapy is tomorrow February 03. She begins outpatient physical therapy at the hospital on February 07. She continues to ambulate with a cane. She has discontinued the oxycodone. She has no concerns today. [facility] Medical History Arthritis Panic attacks Osteoporosis PTSD (post-traumatic stress disorder) ELIAN (generalized anxiety disorder) PAC (premature atrial contraction) History of anxiety Dyslipidemia Osteoarthritis (arthritis due to wear and tear of joints) Diverticulitis Essential hypertension Hyperkalemia Depression Surgical History Hx of tonsillectomy Hx of tubal ligation History of total right knee replacement Hx of colonoscopy History of carpal tunnel release Family History Mother Dementia Father No problems noted. Social History Household Members: Spouse Housing: House Are you a primary summer child caregiver to a significant other at home: No Do you presently have visiting nurse or other home services: No Alcohol intake: never Patient Tobacco Use Status: Never used Tobacco e-Cigarette/Vaping Use: Never Used Second Hand Smoke Exposure: No Advance Directives Date on File: 07/31/20 service: No Current occupational status: retired Current occupation: Right Handed Sexual orientation: Straight/Heterosexual Cognitive needs: No Hearing needs: No Vision needs: No Female Reproductive History Menstrual Age of Menarche: 8 Review of Systems Const All systems reviewed & are unremarkable except as noted in HPI and below Physical Exam Extrem Other: Left knee normal to inspection. Incision is clean dry and intact. No erythema or joint effusion. Range of motion is 5 to 95 degrees. She can activate straight leg raise with no lag. No palpable defect over the quad tendon. Calf supple nontender neurovascularly intact. Assessment & Plan Assessment & Plan (1) Status post total left knee replacement: Code(s): Z96.652 - Presence of left artificial knee joint Plan: Left knee destiny removed Steri-Strips applied. She will transition to outpatient physical therapy to work on range of motion quad strengthening and gait training exercises. She will continue her anticoagulant therapy for another 4 weeks. She will require antibiotic prophylaxis for any upcoming dental work. She does understand no cleanings for 3 weeks postop. She will see us back on 02/28/2024 for her routine postop appointment with Dr. Cortez, sooner if needed. Coding Level of Care Code Global (63978) Diagnoses Status post total left knee replacement Z96.652
== END 2024-02-03 12:01 | disposition home or self-care (01) ==
PROVIDERS: PCP Student in an Organized Health Care Education/Training Program; Visit Provider Physician Assistant
DX: Z96.652 Presence of left artificial knee joint (principal)
CPT/HCPCS: 99024

== ENCOUNTER → 2024-02-03 11:12 | Outpatient (BNVA) | payer MEDICARE, OTHER, SELFPAY | PROVIDERS: PCP Student in an Organized Health Care Education/Training Program; Visit Provider Physician Assistant | DX: Z96.652 Presence of left artificial knee joint (principal) | CPT/HCPCS: 99212 ==

== ENCOUNTER 2024-02-08 10:50 | Outpatient (RCR) | payer MEDICARE, OTHER, SELFPAY ==
--- NOTE | 2024-03-14 11:04 | MHC.PT.DC ---
[facility] [place] Office [place] Office [place] Office [address] Rekha Brown [address] [phone] F: [phone] F: [phone] F: [phone] F: [phone] Physical Therapy Discharge Report Diagnosis: L TKR Date of Surgery: 01/19/24 Date of Evaluation: 02/08/24 Date of Discharge: 03/14/24 Treatments to Date: 1 Cancellations to Date: No Shows to Date: Discharge Status: Patient Elected to Stop Recommend MD Follow-up Discharge Summary: Pt SEEN FOR INIT EVAL ONLY. SHE THEN CALLED TO CANCEL FURTHER PT VISITS. THIS PT CALLED AND SPOKE WITH HER ON 02/09 TO EXPRESS RECOMMENDATION FOR CONTINUED PT BASED ON EVAL FINDINGS, BUT NO FURTHER APPTS SCHEDULED BY Pt. CHEYENNE SAMANIEGO 'Pt IS 68 YO F REFERRED TO PT FROM [facility] ([facility]) S/P L TKR BY DR RAMIREZ ON 12/24/23. HAD HOME PT UNTIL 01/03. NOW PRESENTS FOR OUTPt PT. Pt WITHOUT ST CANE ( I FORGOT IT ) WITH ANTALGIC GT (LIMP, DECREASED HEEL STRIKE), SWELLING L KNEE, DECREASED L KNEE ROM, DECREASED L LE STRENGTH, PAIN. Pt SHOULD BENEFIT FROM PT TO ADDRESS THESE ISSUES' Electronically signed by: NIKO MARIA PT Please sign and return to therapist. Thank you for your referral.
== END 2024-03-14 11:05 | disposition home or self-care (01) ==
LOC: HO.PT 10:50
PROVIDERS: PCP Student in an Organized Health Care Education/Training Program; Visit Provider Physician Assistant
DX: Z96.652 Presence of left artificial knee joint (principal)
CPT/HCPCS: 97110; 97116; 97161

== ENCOUNTER 2024-02-28 10:10 | Outpatient (AMB) | payer MEDICARE, OTHER, SELFPAY ==
--- NOTE | 2024-02-28 10:11 | A.OFFVIS_ITS ---
Vital Signs 02/28/24 10:13 Height 5 ft 7.5 in Weight 166 lb BMI 25.6 Intake Visit Reasons: 6 wk PO- LT TKA 01/19/24 NE Intake Note: Zulma is a 68 year old female who presents today for a 6 week post operative appointment s/p Left TKA 01/19/24. Patient reports that she is doing well. She took a fell about 1 week ago as she was feeling a bit unstable, but denies any increased. No concerns at this time. Allergies No Known Allergies [No Known Allergies*] Allergy (Verified 02/03/24 11:21) HPI HPI 6 wk PO- LT TKA 01/19/24 NE: Details: Zulma is a 68 year old female who presents today for a 6 week post operative appointment s/p Left TKA 01/19/24. Patient reports that she is doing well. She took a fell about 1 week ago as she was feeling a bit unstable, but denies any increased. No concerns at this time. [facility] Medical History Arthritis Panic attacks Osteoporosis PTSD (post-traumatic stress disorder) ELIAN (generalized anxiety disorder) PAC (premature atrial contraction) History of anxiety Dyslipidemia Osteoarthritis (arthritis due to wear and tear of joints) Diverticulitis Essential hypertension Hyperkalemia Depression Surgical History Hx of tonsillectomy Hx of tubal ligation History of total right knee replacement Hx of colonoscopy History of carpal tunnel release Family History Mother Dementia Father No problems noted. Social History Household Members: Spouse Housing: House Are you a primary animal care supervisor to a significant other at home: No Do you presently have visiting nurse or other home services: No Alcohol intake: never Patient Tobacco Use Status: Never used Tobacco e-Cigarette/Vaping Use: Never Used Second Hand Smoke Exposure: No Advance Directives Date on File: 07/31/20 service: No Current occupational status: retired Current occupation: Right Handed Sexual orientation: Straight/Heterosexual Cognitive needs: No Hearing needs: No Vision needs: No Female Reproductive History Menstrual Age of Menarche: 8 Physical Exam Vital Signs: BMI result Body Mass Index 25.6 Extrem Other: 3-5 deg ext lag inc c/d/i 130 deg flexion Assessment & Plan Assessment & Plan (1) Status post total left knee replacement: Code(s): Z96.652 - Presence of left artificial knee joint Category: Surgical Plan: Cont HEP February d/c ASA f/u 6 weeks Coding Level of Care Code Global (64574) Diagnoses Status post total left knee replacement Z96.652
[2024-02-28 10:13] VITALS: BMI 25.6
== END 2024-02-28 10:32 | disposition home or self-care (01) ==
PROVIDERS: PCP Student in an Organized Health Care Education/Training Program; Visit Provider Orthopaedic Surgery
DX: Z96.652 Presence of left artificial knee joint (principal)
CPT/HCPCS: 99024

== ENCOUNTER → 2024-02-28 10:10 | Outpatient (BNVA) | payer MEDICARE, OTHER, SELFPAY | PROVIDERS: PCP Student in an Organized Health Care Education/Training Program; Visit Provider Orthopaedic Surgery | DX: Z47.1 Aftercare following joint replacement surgery (principal); Z96.652 Presence of left artificial knee joint | CPT/HCPCS: 99212 ==

== ENCOUNTER 2024-03-26 07:30 | Emergency (ER) | payer MEDICARE, OTHER, SELFPAY ==
[2024-03-26] VITALS (13 sets, daily range): BP systolic 97–180; BP diastolic 54–90; PULSE 100–144; RESP 22–30; TEMP 20.7–38.2; O2SAT 75–98; BMI 26.7
--- NOTE | ~2024-03-26 | XR_ITS ---
EXAMINATION: XR CHEST CLINICAL INFORMATION: Possible aspiration pneumonia respiratory failure COMPARISON: Chest radiograph from 09/14/2022 TECHNIQUE: Frontal view of the chest was obtained. FINDINGS: Endotracheal tube approximately 1.3 cm from the level of patrick. Enteric tube courses below left hemidiaphragm into the stomach. Right basilar radiopacity potentially representing consolidation though underlying pleural effusion with atelectasis not excluded. Left basilar atelectasis. No pneumothorax. Trachea is midline. Cardiac mediastinal silhouette is not enlarged. Osseous structures are intact. Soft tissues are unremarkable. XR/XR chest 1V IMPRESSION: 1. Endotracheal tube approximately 1.3 cm from the level of patrick. 2. Enteric tube courses below left hemidiaphragm into the stomach. 3. Right basilar radiopacity potentially representing consolidation though underlying pleural effusion with atelectasis not excluded. 4. Left basilar atelectasis.
--- NOTE | ~2024-03-26 | CT_ITS ---
EXAMINATION: CT HEAD WITHOUT CONTRAST CLINICAL INFORMATION: Altered mental status COMPARISON: CT head 09/14/2022 TECHNIQUE: Contiguous axial imaging was performed from the skull base to vertex without intravenous administration of contrast. This CT examination was performed using dose optimization techniques as appropriate, variously including the following: *Automated exposure control *Adjustment of mA and/or kV according to patient size (this includes techniques or standardized protocols for targeted exams where dose is matched to indication/reason for exam; i.e. extremities or head) *Use of iterative reconstruction technique DLP: 671 mGy-cm FINDINGS: There is no evidence of acute intracranial hemorrhage or edematous territorial infarction. No abnormal mass effect or midline shift is seen. [place] to white matter differentiation is well preserved. No abnormal extra-axial fluid collections are identified. The ventricles are normal in size. Stable small right basal ganglia calcification.. No acute calvarial fracture.. Mild right maxillary sinus mucosal thickening. Paranasal sinuses otherwise and mastoid air cells are well-aerated. CT/CT head/brain wo IV con IMPRESSION: No CT evidence of acute intracranial hemorrhage or edematous territorial infarction.
[2024-03-26] MEDS: 0.9 % Sodium Chloride 1,000 ML 999 ML IV ×3 (07:25→09:17)
--- NOTE | 2024-03-26 07:36 | ED_ITS ---
HPI - General Adult General Chief complaint: Overdose Stated complaint: FOUND UNRESPONSIVE Time Seen by Provider: 03/26/24 07:35 History of Present Illness HPI narrative: The patient is a 68-year-old female who comes to the hospital by ambulance unresponsive. It is not clear who called the ambulance. There was apparently a man at the home who may have been the patient's boyfriend. He apparently the found the patient unresponsive and ill this morning. He says that she has been complaining of a cold yesterday. It is not clear when she was last seemed to be well but paramedics believe it was sometime yesterday evening. Paramedics found the patient in bed seemingly quite ill and unresponsive. She seemed short of breath with rhonchorous breath sounds. There was an empty bottle of lorazepam and olanzapine by the side of the bed. Patient has a history of depression and suicide attempts. Sometime after the patient's arrival the patient's arrived. The patient's tells me that about 4 or 5 days ago the patient was complaining of a chest cold but the thought these symptoms were getting better. The 's other observation is that the patient has been sleeping a lot over the last several weeks. He attributes this to her psychiatric medications. He says that sometimes she seems to stay in bed all day and all night. He says that she was up yesterday (Wednesday) in the morning for about an hour but then went back to bed and was in bed throughout the day on Wednesday. She seemed to be sleeping during the day. He said that was not very unusual for her. He says that he went to bed at around 22:00 and checked on her. She seemed to be sleeping normally at that time. When he woke up this morning he went to check on her and he felt that she was breathing strangely and he was unable to wake her up and so it was at that point that he called 911. He says he has no reason to suspect that she took an acute overdose last night but he admits that she has overdosed multiple times in the past. He says there was no trauma or other significant events during the day yesterday or during the night. Related Data Home Medications ?Medication ?Instructions ?Recorded ?Confirmed olanzapine 2.5 mg tablet 5 mg PO BEDTIME 06/29/23 02/03/24 pravastatin 20 mg tablet 20 mg PO DAILY 06/29/23 02/03/24 buspirone 15 mg tablet 15 mg PO BID 01/10/24 02/03/24 paroxetine HCl 40 mg tablet 40 mg PO DAILY 01/10/24 02/03/24 amlodipine 5 mg tablet (Norvasc) 5 mg PO DAILY 01/11/24 02/03/24 calcium carbonate (Calcium 600) 1,200 mg PO DAILY 01/11/24 02/03/24 lactobacillus comb no.10 20 20,000 mmu cells PO DAILY 01/11/24 02/03/24 billion cell capsule (Probiotic) methylcellulose (laxative) 500 mg 1,500 mg PO DAILY constipation 01/11/24 02/03/24 tablet (Citrucel) multivitamin 1 tab PO DAILY 01/11/24 02/03/24 Previous Rx's ?Medication ?Instructions ?Recorded mirtazapine 15 mg tablet 15 mg PO BEDTIME 30 days #30 tabs 10/28/22 acetaminophen 325 mg tablet 650 mg (2 x 325 mg) PO Q6H PRN 01/20/24 Pain, Mild (Pain Scale 1-3) 30 days #240 tabs Allergies Allergy/AdvReac Type Severity Reaction Status Date / Time No Known Allergies Allergy Verified 03/26/24 09:49 [No Known Allergies*] Review of Systems 2 Review of Systems: Yes Unobtainable due to mental status PMFSH Past Medical History Medical History Arthritis Panic attacks Osteoporosis PTSD (post-traumatic stress disorder) ELIAN (generalized anxiety disorder) PAC (premature atrial contraction) History of anxiety Dyslipidemia Osteoarthritis (arthritis due to wear and tear of joints) Diverticulitis Essential hypertension Hyperkalemia Depression Surgical History Hx of tonsillectomy Hx of tubal ligation History of total right knee replacement Hx of colonoscopy History of carpal tunnel release Family History Family History Mother Dementia Father No problems noted. Social History Social History Household Members: Spouse Housing: House Are you a primary body care manager to a significant other at home: No Do you presently have visiting nurse or other home services: No Unable to assess alcohol history related to: Unable to respond Alcohol intake: never Patient Tobacco Use Status: Never used Tobacco e-Cigarette/Vaping Use: Never Used Second Hand Smoke Exposure: No Use of substances other than those prescribed or required for medical reasons: Unable to respond Advance Directives: Yes Advance Directives Information Provided: No Advance Directives on File: No Advance Directives Date on File: 07/31/20 Do you have a plan to hurt others: No Plan service: No Current occupational status: retired Current occupation: Right Handed Sexual orientation: Straight/Heterosexual Cognitive needs: No Hearing needs: No Vision needs: No Physical Exam ED Vital Signs: Vital Signs - 24 hr 03/26/24 08:00 03/26/24 08:17 03/26/24 08:34 Temperature Pulse Rate 107 H 100 Respiratory Rate 24 H 23 H Blood Pressure 98/54 L Pulse Oximetry 91 L Oxygen Delivery Method Fraction of Inspired Oxygen 100 03/26/24 08:35 03/26/24 09:09 03/26/24 09:19 Temperature 100.8 F H 100.6 F H Pulse Rate 102 H 101 H Respiratory Rate 28 H 28 H Blood Pressure 97/60 110/65 Pulse Oximetry 93 94 Oxygen Delivery Method Mechanical Ventilation BiPAP Fraction of Inspired Oxygen 85 85 03/26/24 10:18 03/26/24 10:56 Temperature 100.4 F 100.6 F H Pulse Rate 109 H 106 H Respiratory Rate 23 H 26 H Blood Pressure 110/69 112/71 Pulse Oximetry 96 96 Oxygen Delivery Method Mechanical Ventilation Mechanical Ventilation Fraction of Inspired Oxygen 85 85 BMI result Body Mass Index 26.7 Const Other: The patient arrived looking acutely ill, unresponsive except to painful stimuli, with increased respirations and audible rhonchorous breath sounds. HENMT Other: The oropharynx seemed to have debris in it. Eyes Other: Pupils round equal, conjunctivae clear Neck Other: Neck seems supple. No JVD apparent. Resp Other: Increased work of breathing, rhonchorous breath sounds bilaterally Cardio Rate: tachycardic Rhythm: regular rhythm Heart sounds: S1 normal heart sound present and S2 normal heart sound present GI Other: The abdomen is soft and not apparently tender Skin Other: Skin is pale and dry Neuro Other: The patient was unresponsive to verbal stimuli. Her eyes were closed. With painful stimuli she grimaced and moves her extremities symmetrically. Extrem Other: No deformity to the extremities. No peripheral edema. Medications Administered Generic Name Dose Route Start Last Admin Trade Name Freq PRN Reason Stop Dose Admin Propofol 1,000 mg in 100 mls @ 0 mls/hr 03/26/24 08:00 03/26/24 08:00 Diprivan IVCONT 30 mcg/kg/min .Q0M HARESH 14.33 mls/hr Administration Protocol Per Protocol Discontinued Medications Generic Name Dose Route Start Last Admin Trade Name Freq PRN Reason Stop Dose Admin Albuterol/Ipratropium 3 ml 03/26/24 07:51 03/26/24 08:34 Albuterol/Iprat 2.5/0.5mg 3 Ml Ampul.Neb INHALE 03/26/24 07:52 3 ml ONCE ONE Administration Sodium Chloride 1,000 mls @ 999 mls/hr 03/26/24 08:00 03/26/24 08:26 Ns IV 03/26/24 09:00 Infused .Q1H1M HARESH Infusion Vancomycin HCl 2,000 mg in 500 mls @ 250 mls/hr 03/26/24 07:53 03/26/24 09:04 Vancomycin/Ns IV 03/26/24 09:52 250 mls/hr ONCE ONE Administration Piperacillin Sod/Tazobactam 100 mls @ 200 mls/hr 03/26/24 07:52 03/26/24 08:48 Sod 4.5 gm/ Sodium Chloride IV 03/26/24 08:21 Infused ONCE ONE Infusion Sodium Chloride 1,000 mls @ 999 mls/hr 03/26/24 08:00 03/26/24 08:28 Ns IV 03/26/24 09:00 Infused .Q1H1M HARESH Infusion Sodium Chloride 1,000 mls @ 999 mls/hr 03/26/24 09:15 03/26/24 10:45 Ns IV 03/26/24 10:15 Infused .Q1H1M HARESH Infusion Ketamine HCl 120 mg 03/26/24 07:48 03/26/24 07:58 Ketamine Hcl 500 Mg/5 Ml Vial IVPUSH 03/26/24 07:49 120 mg ONCE ONE Administration Succinylcholine Chloride 120 mg 03/26/24 07:47 03/26/24 07:57 Succinylcholine Chloride 200 Mg/10 Ml Vial IVPUSH 03/26/24 07:48 120 mg ONCE ONE Administration Procedures Intubation Intubation Type:: Emergency Endotracheal Intubation Intubation Date:: 03/26/24 Time out performed: Yes sedative: Ketamine Mg Given: 120 paralytic: Succinylcholine Mg Given: 120 Laryngoscope: fiber optic video scope ET Tube Size: 7.5 ET Tube Uncuffed: No Tube Placement Confirmation: visualized tube passing through cords Patient Tolerated Procedure: well Intubation Complications: none Medical Decision Making Medical Decision Making [facility] Narrative: The patient is a 68-year-old woman with a history of significant mental illness and history of suicide gestures and attempts in the past who comes to the emergency room acutely ill with shortness of breath and altered mental status. She was significantly hypoxic despite supplemental oxygen and so she seemed to require prompt endotracheal intubation. She was given 120 mg of IV ketamine and 120 mg of IV succinylcholine. Intubation with GlideScope was straight forward. Orogastric tube was also placed. Following intubation an x-ray was done that showed adequate placement of the tubes and showed a large right lower lobe infiltrate which I believe is consistent with a probable aspiration pneumonia. Labs were obtained and she was started on broad-spectrum antibiotics, piperacillin/tazobactam and vancomycin empirically. She was also given IV fluids. Propofol drip was used for ongoing sedation with norepinephrine drip ready for managing any hypotension. According to the patient's the patient was last seen awake with a normal mental status yesterday morning on Wednesday morning. The patient apparently then went to bed and stayed in bed, apparently sleeping all day Wednesday and all night last night. The patient has been complaining of a chest cold earlier in the week but had not seemed significantly ill yesterday according to the . Paramedics found an empty bottle of olanzapine and lorazepam next to the bed suggesting the possibility of an overdose or at least overuse of these sedative medications. Therefore it seems like the patient probably has sustained an aspiration pneumonia possibly in the setting of sedative overuse or overdose. Noncontrast head CT is negative. Our ICU was full and therefore could not accept this patient for additional care. I contacted [facility] and the patient has been accepted to their ICU with the accepting physician Dr. Sahu. Lab Data 03/26/24 08:20 03/26/24 08:20 Labs: Lab Results 03/26/24 03/26/24 03/26/24 Range/Units 07:36 07:58 08:20 WBC 15.0 H (4.8-10.8) X10*3/uL RBC 4.39 (4.20-5.50) X10*6/uL Hgb 13.5 (12.0-16.0) g/dl Hct 41.4 (37.0-47.0) % MCV 94.3 (80.0-98.0) fL MCH 30.8 (27.0-33.0) pg MCHC 32.6 (31.0-35.0) g/dl RDW 13.0 (11.0-16.0) % Plt Count 221 (160-400) X10*3/uL MPV 9.5 (9.4-12.3) fL Immature Gran % (Auto) 0.5 H (0.0-0.4) % Neut % (Auto) 88.6 H (45-73) % Lymph % (Auto) 4.1 L (20-40) % Will % (Auto) 6.6 (2-11) % Eos % (Auto) 0.0 (0-4) % Baso % (Auto) 0.2 (0-2) % Lymph # (Auto) 0.6 L (1.2-4.9) X10*3/uL Will # (Auto) 1.0 (0.1-1.2) X10*3/uL Eos # (Auto) 0.0 (0.0-0.4) X10*3/uL Baso # (Auto) 0.0 (0.0-0.2) X10*3/uL Abs Immat Gran (auto) 0.07 H (0.00-0.03) X10*3/uL Absolute Neuts (auto) 13.3 H (2.0-8.3) x10*3/uL Absolute Nucleated RBC 0.000 (0.0-0.012) X10*3/uL Nucleated RBC % (auto) 0.0 (0.0-0.2) /100WBC PT 16.7 H (11.1-13.3) SEC INR 1.4 H (0.9-1.1) O2 Saturation 95.0 % ABG pH at Pt Temp 7.35 (7.35-7.45) ABG pCO2 at Pt Temp 38 (32-45) mmHg ABG pO2 at Pt Temp 83 (83-108) mmHg ABG HCO3 21 L (22-26) mmol/L ABG Base Excess (Actual) -3.4 mmol/L VBG pH (7.32-7.43) VBG pCO2 mmHg VBG pO2 mmHg VBG HCO3 (22-26) mmol/L VBG O2 Saturation % VBG Base Excess mmol/L Sodium 143 (135-145) mmol/L Potassium 3.2 L D (3.3-5.1) mmol/L Chloride 114 H (96-108) mmol/L Carbon Dioxide 21 L (22-29) mmol/L Anion Gap 11 L (12-20) BUN 18 H (9-16) mg/dL Creatinine 0.75 (0.5-1.4) mg/dL Estim Creat Clear Calc 77.3 Estimated GFR > 60 POC Glucose 210 H (60-115) mg/dL Random Glucose 171 H (60-115) mg/dL Lactic Acid 3.6 H* (0.5-2.0) mmol/L Calcium 7.2 L D (8.4-10.2) mg/dL Magnesium 1.5 L (1.6-2.6) mg/dL Total Bilirubin 0.8 (0.0-1.0) mg/dL Direct Bilirubin 0.2 (0.0-0.5) mg/dL AST 15 (5-31) U/L ALT 11 (0-31) U/L Alkaline Phosphatase 38 L (39-117) U/L Troponin I High Sens (<3.5-17.0) ng/L C-Reactive Protein 4.56 H (< or = 0.50) mg/dL Total Protein 5.4 L (6.5-8.0) g/dL Albumin 3.0 L (3.5-5.0) g/dL Lipase 28 (8-78) U/L Urine Color Urine Appearance Urine pH (5.0-9.0) Ur Specific Duarte (1.005-1.025) Urine Protein (Neg-Trace) mg/dL Urine Glucose (UA) (Negative) mg/dL Urine Ketones (Negative) mg/dL Urine Blood (Negative) Urine Nitrite (Negative) Ur Leukocyte Esterase (Negative) Salicylates (15-30) mg/dL Urine Opiates Screen (Not Detect) Ur Buprenorphine Scrn (Not Detect) ng/mL Ur Oxycodone Screen (Not Detect) ng/mL Urine Methadone Screen (Not Detect) ng/mL Urine Fentanyl Screen (Not Detect) Acetaminophen (<30) mcg/mL Ur Barbiturates Screen (Not Detect) Ur Phencyclidine Scrn (Not Detect) Ur Amphetamines Screen (Not Detect) U Benzodiazepines Scrn (Not Detect) Urine Cocaine Screen (Not Detect) U Marijuana (THC) Screen (Not Detect) Ethyl Alcohol mg/dL Influenza Type A (PCR) (Negative) Influenza Type B (PCR) (Negative) RSV RNA Qual (PCR) (Negative) SARS-CoV-2 RNA (RT-PCR) (Negative) 03/26/24 03/26/24 03/26/24 Range/Units 08:21 08:28 09:48 WBC (4.8-10.8) X10*3/uL RBC (4.20-5.50) X10*6/uL Hgb (12.0-16.0) g/dl Hct (37.0-47.0) % MCV (80.0-98.0) fL MCH (27.0-33.0) pg MCHC (31.0-35.0) g/dl RDW (11.0-16.0) % Plt Count (160-400) X10*3/uL MPV (9.4-12.3) fL Immature Gran % (Auto) (0.0-0.4) % Neut % (Auto) (45-73) % Lymph % (Auto) (20-40) % Will % (Auto) (2-11) % Eos % (Auto) (0-4) % Baso % (Auto) (0-2) % Lymph # (Auto) (1.2-4.9) X10*3/uL Will # (Auto) (0.1-1.2) X10*3/uL Eos # (Auto) (0.0-0.4) X10*3/uL Baso # (Auto) (0.0-0.2) X10*3/uL Abs Immat Gran (auto) (0.00-0.03) X10*3/uL Absolute Neuts (auto) (2.0-8.3) x10*3/uL Absolute Nucleated RBC (0.0-0.012) X10*3/uL Nucleated RBC % (auto) (0.0-0.2) /100WBC PT (11.1-13.3) SEC INR (0.9-1.1) O2 Saturation % ABG pH at Pt Temp (7.35-7.45) ABG pCO2 at Pt Temp (32-45) mmHg ABG pO2 at Pt Temp (83-108) mmHg ABG HCO3 (22-26) mmol/L ABG Base Excess (Actual) mmol/L VBG pH (7.32-7.43) VBG pCO2 mmHg VBG pO2 mmHg VBG HCO3 (22-26) mmol/L VBG O2 Saturation % VBG Base Excess mmol/L Sodium (135-145) mmol/L Potassium (3.3-5.1) mmol/L Chloride (96-108) mmol/L Carbon Dioxide (22-29) mmol/L Anion Gap (12-20) BUN (9-16) mg/dL Creatinine (0.5-1.4) mg/dL Estim Creat Clear Calc Estimated GFR POC Glucose (60-115) mg/dL Random Glucose (60-115) mg/dL Lactic Acid 5.3 H* (0.5-2.0) mmol/L Calcium (8.4-10.2) mg/dL Magnesium (1.6-2.6) mg/dL Total Bilirubin (0.0-1.0) mg/dL Direct Bilirubin (0.0-0.5) mg/dL AST (5-31) U/L ALT (0-31) U/L Alkaline Phosphatase (39-117) U/L Troponin I High Sens 8.8 (<3.5-17.0) ng/L C-Reactive Protein (< or = 0.50) mg/dL Total Protein (6.5-8.0) g/dL Albumin (3.5-5.0) g/dL Lipase (8-78) U/L Urine Color Dark Yellow Urine Appearance Clear Urine pH 5.5 (5.0-9.0) Ur Specific Duarte 1.020 (1.005-1.025) Urine Protein Trace (Neg-Trace) mg/dL Urine Glucose (UA) Negative (Negative) mg/dL Urine Ketones Trace (Negative) mg/dL Urine Blood Negative (Negative) Urine Nitrite Negative (Negative) Ur Leukocyte Esterase Negative (Negative) Salicylates < 5.0 L (15-30) mg/dL Urine Opiates Screen Not Detected (Not Detect) Ur Buprenorphine Scrn Not Detected (Not Detect) ng/mL Ur Oxycodone Screen Not Detected (Not Detect) ng/mL Urine Methadone Screen Not Detected (Not Detect) ng/mL Urine Fentanyl Screen Not Detected (Not Detect) Acetaminophen < 3 (<30) mcg/mL Ur Barbiturates Screen Not Detected (Not Detect) Ur Phencyclidine Scrn Not Detected (Not Detect) Ur Amphetamines Screen Not Detected (Not Detect) U Benzodiazepines Scrn POSITIVE H (Not Detect) Urine Cocaine Screen Not Detected (Not Detect) U Marijuana (THC) Screen Not Detected (Not Detect) Ethyl Alcohol < 10 mg/dL Influenza Type A (PCR) NEGATIVE (Negative) Influenza Type B (PCR) NEGATIVE (Negative) RSV RNA Qual (PCR) NEGATIVE (Negative) SARS-CoV-2 RNA (RT-PCR) NEGATIVE (Negative) 03/26/24 Range/Units 09:53 WBC (4.8-10.8) X10*3/uL RBC (4.20-5.50) X10*6/uL Hgb (12.0-16.0) g/dl Hct (37.0-47.0) % MCV (80.0-98.0) fL MCH (27.0-33.0) pg MCHC (31.0-35.0) g/dl RDW (11.0-16.0) % Plt Count (160-400) X10*3/uL MPV (9.4-12.3) fL Immature Gran % (Auto) (0.0-0.4) % Neut % (Auto) (45-73) % Lymph % (Auto) (20-40) % Will % (Auto) (2-11) % Eos % (Auto) (0-4) % Baso % (Auto) (0-2) % Lymph # (Auto) (1.2-4.9) X10*3/uL Will # (Auto) (0.1-1.2) X10*3/uL Eos # (Auto) (0.0-0.4) X10*3/uL Baso # (Auto) (0.0-0.2) X10*3/uL Abs Immat Gran (auto) (0.00-0.03) X10*3/uL Absolute Neuts (auto) (2.0-8.3) x10*3/uL Absolute Nucleated RBC (0.0-0.012) X10*3/uL Nucleated RBC % (auto) (0.0-0.2) /100WBC PT (11.1-13.3) SEC INR (0.9-1.1) O2 Saturation % ABG pH at Pt Temp (7.35-7.45) ABG pCO2 at Pt Temp (32-45) mmHg ABG pO2 at Pt Temp (83-108) mmHg ABG HCO3 (22-26) mmol/L ABG Base Excess (Actual) mmol/L VBG pH 7.30 L (7.32-7.43) VBG pCO2 41 mmHg VBG pO2 69 mmHg VBG HCO3 20 L (22-26) mmol/L VBG O2 Saturation 90.0 % VBG Base Excess -5.2 mmol/L Sodium (135-145) mmol/L Potassium (3.3-5.1) mmol/L Chloride (96-108) mmol/L Carbon Dioxide (22-29) mmol/L Anion Gap (12-20) BUN (9-16) mg/dL Creatinine (0.5-1.4) mg/dL Estim Creat Clear Calc Estimated GFR POC Glucose (60-115) mg/dL Random Glucose (60-115) mg/dL Lactic Acid (0.5-2.0) mmol/L Calcium (8.4-10.2) mg/dL Magnesium (1.6-2.6) mg/dL Total Bilirubin (0.0-1.0) mg/dL Direct Bilirubin (0.0-0.5) mg/dL AST (5-31) U/L ALT (0-31) U/L Alkaline Phosphatase (39-117) U/L Troponin I High Sens (<3.5-17.0) ng/L C-Reactive Protein (< or = 0.50) mg/dL Total Protein (6.5-8.0) g/dL Albumin (3.5-5.0) g/dL Lipase (8-78) U/L Urine Color Urine Appearance Urine pH (5.0-9.0) Ur Specific Duarte (1.005-1.025) Urine Protein (Neg-Trace) mg/dL Urine Glucose (UA) (Negative) mg/dL Urine Ketones (Negative) mg/dL Urine Blood (Negative) Urine Nitrite (Negative) Ur Leukocyte Esterase (Negative) Salicylates (15-30) mg/dL Urine Opiates Screen (Not Detect) Ur Buprenorphine Scrn (Not Detect) ng/mL Ur Oxycodone Screen (Not Detect) ng/mL Urine Methadone Screen (Not Detect) ng/mL Urine Fentanyl Screen (Not Detect) Acetaminophen (<30) mcg/mL Ur Barbiturates Screen (Not Detect) Ur Phencyclidine Scrn (Not Detect) Ur Amphetamines Screen (Not Detect) U Benzodiazepines Scrn (Not Detect) Urine Cocaine Screen (Not Detect) U Marijuana (THC) Screen (Not Detect) Ethyl Alcohol mg/dL Influenza Type A (PCR) (Negative) Influenza Type B (PCR) (Negative) RSV RNA Qual (PCR) (Negative) SARS-CoV-2 RNA (RT-PCR) (Negative) Independent Interpretation I performed an independent interpretation of an: EKG Interpretation: EKG at 07:45 shows sinus tachycardia with occasional premature ventricular complexes at 123 beats per minute Critical Care Time Critical Care Time Critical Care Time: Yes Total Critical Care Time: 75 Attestation: The patient was critically ill with a high probability of imminent or life- threatening deterioration. ?I spent greater than 30 minutes of discontinuous time evaluating the patient, delivering critical care at the bedside, discussing evaluating data with consultants. ?Critical care time does not include time spent performing separately billable procedures or teaching. ?Time spent performing critical care with 75 minutes. Discharge Plan Discharge Clinical Impression: Acute hypoxic respiratory failure, Aspiration pneumonia of right lower lobe Patient Disposition: Critical Access Hospital Hospital Transfer Details: [facility] Prescriptions: No Action mirtazapine 15 mg Tablet 15 mg PO BEDTIME 30 Days Qty: 30 2RF olanzapine 2.5 mg tablet 5 mg PO BEDTIME pravastatin 20 mg tablet 20 mg PO DAILY paroxetine HCl 40 mg tablet 40 mg PO DAILY buspirone 15 mg tablet 15 mg PO BID Probiotic 20 billion cell Capsule 20,000 mmu cells PO DAILY Rx Instructions: administer with a meal multivitamin Tablet 1 tab PO DAILY amlodipine [Norvasc] 5 mg tablet 5 mg PO DAILY calcium carbonate [Calcium 600] 600 mg calcium (1,500 mg) tablet 1,200 mg PO DAILY Citrucel 500 mg tablet 1,500 mg PO DAILY Rx Instructions: Take two tablets by mouth twice a day acetaminophen 325 mg Tablet 650 mg PO Q6H PRN (Reason: Pain, Mild (Pain Scale 1-3)) 30 Days Qty: 240 0RF Print Language: Czech
--- NOTE | 2024-03-26 07:49 | ECG_ITS ---
Test Reason : CARDIAC ARREST Blood Pressure : / mmHG Vent. Rate : 123 BPM Atrial Rate : 123 BPM P-R Int : 140 ms QRS Dur : 082 ms QT Int : 326 ms P-R-T Axes : 040 025 026 degrees QTc Int : 466 ms Sinus tachycardia with occasional Premature ventricular complexes Possible Left atrial enlargement Nonspecific ST abnormality Abnormal ECG When compared with ECG of 26-JUL-2023 06:52, Premature ventricular complexes are now Present Vent. rate has increased BY 54 BPM Referred By: Corky Blackman Electronically Signed By:NICOLLE KLINE
[2024-03-26] MEDS: Succinylcholine Chloride 200 MG/10 ML VIAL 120 MG IVPUSH (07:57)
[2024-03-26] MEDS: Ketamine HCl 500 MG/5 ML VIAL 120 MG IVPUSH (07:58)
[2024-03-26] MEDS: propofoL 1,000 MG/100 ML VIAL 14.33 MG IVCONT (08:00)
[2024-03-26 08:08] LABS: ABG Base Excess -3.4 mmol/L; ABG HCO3 21 mmol/L (22-26); ABG pCO2 38 mmHg (32-45); ABG pH 7.35 (7.35-7.45); ABG pO2 83 mmHg (83-108)
[2024-03-26] MEDS: Piperacillin Sodium/Tazobactam 4.5 GM in 0.9 % Sodium Chloride 100 ML IV (08:17)
[2024-03-26 08:28] LABS: MANUAL DIFF FLAG NO
[2024-03-26 08:29] LABS: Basophils Percent Auto 0.2 % (0-2); Hematocrit 41.4 % (37.0-47.0); Hemoglobin 13.5 g/dl (12.0-16.0); Imm Gran Abs Auto 0.07 X10*3/uL (0.00-0.03); Imm Gran Pct Auto 0.5 % (0.0-0.4); Lymphocytes Absolute Auto 0.6 X10*3/uL (1.2-4.9); Lymphocytes Percent Auto 4.1 % (20-40); Mean Corpuscular HGB Conc 32.6 g/dl (31.0-35.0); Mean Corpuscular Hemoglobin 30.8 pg (27.0-33.0); Mean Corpuscular Volume 94.3 fL (80.0-98.0); Mean Platelet Volume 9.5 fL (9.4-12.3); Monocytes Percent Auto 6.6 % (2-11); Neutrophils Absolute Auto 13.3 x10*3/uL (2.0-8.3); Neutrophils Percent Auto 88.6 % (45-73); Platelet Count 221 X10*3/uL (160-400); Red Blood Count 4.39 X10*6/uL (4.20-5.50)
[2024-03-26 08:34] LABS: INTERNATIONAL NORM RATIO 1.4 (0.9-1.1); Prothrombin Time 16.7 SEC (11.1-13.3)
[2024-03-26] MEDS: Albuterol/Iprat 2.5/0.5MG 3 ML AMPUL.NEB INHALE (08:34)
[2024-03-26 08:43] LABS: Ethanol < 10 mg/dL
[2024-03-26 08:45] LABS: Lactic Acid 3.6 mmol/L (0.5-2.0)
[2024-03-26 08:49] LABS: Alanine Aminotransferase 11 U/L (0-31); Alkaline Phosphatase 38 U/L (39-117); Anion Gap 11 (12-20); Aspartate Amino Transferase 15 U/L (5-31); Bilirubin Direct 0.2 mg/dL (0.0-0.5); Bilirubin Total 0.8 mg/dL (0.0-1.0); Blood Urea Nitrogen 18 mg/dL (9-16); C Reactive Protein 4.56 mg/dL (< or = 0.50); Calcium 7.2 mg/dL (8.4-10.2); Carbon Dioxide 21 mmol/L (22-29); Chloride 114 mmol/L (96-108); Creatinine Clr Calc Pharmacy 77.3; Estimated Glomerular Filt Rate > 60; Glucose Random 171 mg/dL (60-115); Lipase 28 U/L (8-78); Magnesium 1.5 mg/dL (1.6-2.6); Potassium 3.2 mmol/L (3.3-5.1); Sodium 143 mmol/L (135-145); Total Protein 5.4 g/dL (6.5-8.0)
[2024-03-26 08:52] LABS: Troponin-I High Sensitivity 8.8 ng/L (<3.5-17.0)
[2024-03-26 08:58] LABS: Glucose, Whole Blood 210 mg/dL (60-115)
[2024-03-26 09:00] LABS: Appearance Urine Clear; Color Urine Dark Yellow; Glucose Urine UA Negative (Negative); Leukocyte Esterase Urine Negative (Negative); Nitrite Urine Negative (Negative); PH 5.5 (5.0-9.0); Urine Blood Negative (Negative); Urine Ketones Trace mg/dL (Negative); Urine Protein Trace mg/dL (Neg-Trace)
[2024-03-26] MEDS: vancomycin/NS 2,000 MG/500 ML PLAST..BAG 250 MG IV (09:04)
[2024-03-26 09:11] LABS: Amphetamine Screen Urine Not Detected (Not Detect); Barbiturates, Urine Not Detected (Not Detect); Benzodiazepines Screen Urine POSITIVE (Not Detect); Buprenorphine Scr Not Detected (Not Detect); Cannabinoid Screen Urine Not Detected (Not Detect); Cocaine Screen Urine Not Detected (Not Detect); Fentanyl, urine Not Detected (Not Detect); Methadone Screen, Urine Not Detected (Not Detect); Opiate Screen Urine Not Detected (Not Detect); Oxycodone Screen Urine Not Detected (Not Detect); Phencyclidine Screen Urine Not Detected (Not Detect)
[2024-03-26 09:56] LABS: Influenza A PCR NEGATIVE (Negative); Influenza B PCR NEGATIVE (Negative); Resp Syncy Virus RNA Qual PCR NEGATIVE (Negative); SARS COV2 PCR INHOUSE NEGATIVE (Negative)
[2024-03-26 10:01] LABS: VBG Base Excess -5.2 mmol/L; VBG HCO3 20 mmol/L (22-26); VBG pCO2 41 mmHg; VBG pO2 69 mmHg
--- NOTE | 2024-03-26 10:03 | PC.NURSE ---
Addendum entered by Fide Lantigua RN 03/26/24 10:18: PVS 11/MIN Original Note: PT BIBA FROM HOME, FAMILY CALLED AFTER PT UNRESPONSIVE. GCS 8 WITH MEDICS, INITIAL QUESTION OF ATIVAN OD, ARRIVED WITH EMPTY BOTTLES, NO OTHER INDICATORS OF INTENTIONAL OD. EMESIS ON PILLOW, LIKELY ASPIRATED. ARRIVED TO FACILITY ON 15L NRB SPO2 81%, OBTUNDED, RESPONSIVE ONLY TO PAIN. INTUBATED SOON AFTER ARRIVAL BY MD JEONG. 120MG KETAMINE AND 120 SUCCINYLCHOLINE ADMINISTERED WITH GOOD EFFECT, INTUBATED AT 0742 WITH + COLOR CHANGE, 26 @ LIP, 7.5 ETT. REC'D ORDERS TO START PROPOFOL GTT, STARTED AT 30MCG/KG/HR. NO TITRATION HAS BEEN NEEDED SINCE GTT WAS STARTED, RASS -3 TO -4. OCCASIONALLY HYPOTENSIVE, MAINTAINING MAP >60. SINUS TACH ON MONITOR IN 110S WITH OCCASIONAL PVCS. SPO2 HAS IMPROVED, CURRENTLY 98% AT 85% FIO2, PEEP 5, Vt 408 rr 24 pip 20. TOTAL URINARY OUTPUT 450CCS SO FAR, 16 FR EMP SENS CATH IN PLACE. THIRD LITER OF NS INFUSING CURRENTLY. NO ICU BEDS INHOUSE, AWAITING BED 7 TRANSFER TO [facility].
[2024-03-26 10:06] LABS: Venous Blood Gas Refer to POC result
[2024-03-26 10:20] LABS: Acetaminophen LAB < 3 mcg/mL (<30); Salicylate < 5.0 mg/dL (15-30)
[2024-03-26 10:24] LABS: Lactic Acid 5.3 mmol/L (0.5-2.0)
[2024-03-26 10:28] LABS: Reflex Lactate? Lactic Acid Added
--- NOTE | 2024-03-26 11:00 | PC.NURSE ---
ATTEMPTED CALLING [facility] REPORT, NO RESPONSE. WILL RE ATTEMPT.
[2024-03-26] MEDS: Acetaminophen Supp 650 MG SUPP.RECT PR (11:07)
[2024-03-26 11:38] LABS: ~Lactic Acid-LAB USE ONLY 6.3 mmol/L (0.5-2.0)
[2024-03-26 11:46] LABS: ABG Refer to POC result
[2024-03-26 11:54] LABS: Reflex Lactate? Lactic Acid Added
[2024-03-26 13:09] LABS: Reflex Lactate? 2 Y
== END 2024-03-26 12:07 | disposition short-term general hospital (02) ==
PROVIDERS: Emergency Provider Emergency Medicine; PCP Student in an Organized Health Care Education/Training Program
DX: J96.01 Acute respiratory failure with hypoxia (principal); J69.0 Pneumonitis due to inhalation of food and vomit; I10 Essential (primary) hypertension; F41.1 Generalized anxiety disorder; F32.A Depression, unspecified; Z79.899 Other long term (current) drug therapy; Z03.818 Encounter for observation for suspected exposure to other biological agents ruled out
CPT/HCPCS: 0241U; 31500; 36415; 70450; 71045; 80048; 80076; 80143; 80179; 80307; 81003; 82803; 82947; 83605; 83690; 83735; 84484; 85025; 85610; 86140; 87040; 93005; 94002; 94640; 96361; 96365; 96366; 96375; 99285; J0330; J2543; J2704; J3370

== ENCOUNTER → 2024-03-26 07:49 | Outpatient (BNV) | payer MEDICARE, OTHER, SELFPAY | PROVIDERS: Emergency Provider Emergency Medicine; PCP Student in an Organized Health Care Education/Training Program; Visit Provider Internal Medicine | DX: R00.0 Tachycardia, unspecified (principal); R94.31 Abnormal electrocardiogram [ECG] [EKG] | CPT/HCPCS: 93010 ==

== ENCOUNTER 2024-04-07 17:51 | Inpatient (IN) | payer MEDICARE, OTHER, SELFPAY ==
[2024-04-07 18:25] VITALS: BP 181/93; PULSE 81; RESP 18; TEMP 36.9; O2SAT 92
[2024-04-07 18:27] VITALS: BMI 24.4
[2024-04-07 19:30] VITALS: BP 161/80
[2024-04-07 20:00] VITALS: BP 159/80; PULSE 90; RESP 18; TEMP 36.7; O2SAT 92
--- NOTE | 2024-04-07 20:37 | PC.ADMIT ---
Zulma is a 68 yr [facility] of Depression & Anxiety, S/P recent medication overdose. Patient was presented to [facility] ED about 12 days ago s/p overdose. She was intubated and transferred to [facility] with aspiration pneumonia. She was treated with IV antibiotics & is transferred here today for psychiatric care. Zulma is alert &oriented x4. She is very pleasant & cooperative with admission process. Her affect is slightly anxious. Zulma denies SI/HI/AVH. She states that she does not recall overdosing. I think because I was so sick that I just don't remember. Zulma denies ever wanting to end her life. She is under phychiatric care in the community for her anxiety & depression. She lives home with her . Daughter lives out of state. Zulma denies trauma, reports felling safe at home and also feels safe here on the unit. Skin check was done with no concerns noted. BP hypertensive on arrival (she has dx of HTN & her usual meds have been ordered) will re-check BP when more settled in. Patient is placed on 15 minute checks for safety.
[2024-04-07] MEDS: busPIRone HCl 5 MG TABLET 15 MG PO (21:08)
[2024-04-07] MEDS: OLANZapine 5 MG TABLET PO (21:09)
[2024-04-07] MEDS: traZODone HCL 50 MG TABLET PO (21:09)
[2024-04-07] MEDS: Mirtazapine 15 MG TABLET PO (21:09)
[2024-04-07] MEDS: Vilazodone HCL 40 MG TABLET PO (21:17)
[2024-04-08 08:03] LABS: MANUAL DIFF FLAG NO
[2024-04-08 08:05] LABS: Basophils Absolute Auto 0.1 X10*3/uL (0.0-0.2); Basophils Percent Auto 0.7 % (0-2); Eosinophils Absolute Auto 0.2 X10*3/uL (0.0-0.4); Eosinophils Percent Auto 1.2 % (0-4); Hemoglobin 13.4 g/dl (12.0-16.0); Imm Gran Abs Auto 0.24 X10*3/uL (0.00-0.03); Imm Gran Pct Auto 1.9 % (0.0-0.4); Lymphocytes Absolute Auto 2.4 X10*3/uL (1.2-4.9); Lymphocytes Percent Auto 18.8 % (20-40); Mean Corpuscular HGB Conc 33.5 g/dl (31.0-35.0); Mean Corpuscular Hemoglobin 30.5 pg (27.0-33.0); Mean Corpuscular Volume 91.1 fL (80.0-98.0); Mean Platelet Volume 8.8 fL (9.4-12.3); Monocytes Absolute Auto 1.1 X10*3/uL (0.1-1.2); Monocytes Percent Auto 8.9 % (2-11); Neutrophils Absolute Auto 8.8 x10*3/uL (2.0-8.3); Neutrophils Percent Auto 68.5 % (45-73); Platelet Count 640 X10*3/uL (160-400); Red Blood Count 4.39 X10*6/uL (4.20-5.50); Red Cell Distribution Width 13.3 % (11.0-16.0); White Blood Count 12.9 X10*3/uL (4.8-10.8)
[2024-04-08 08:31] LABS: Alanine Aminotransferase 22 U/L (0-31); Alkaline Phosphatase 55 U/L (39-117); Anion Gap 14 (12-20); Aspartate Amino Transferase 15 U/L (5-31); Bilirubin Direct 0.2 mg/dL (0.0-0.5); Bilirubin Total 0.6 mg/dL (0.0-1.0); Blood Urea Nitrogen 10 mg/dL (9-16); Calcium 9.4 mg/dL (8.4-10.2); Carbon Dioxide 28 mmol/L (22-29); Chloride 103 mmol/L (96-108); Cholesterol 128 mg/dL (<200); Creatinine Clr Calc Pharmacy 64.4; Estimated Glomerular Filt Rate > 60; Glucose Fasting 113 mg/dL (60-99); HDL Cholesterol 26 mg/dL (>40); LDL Cholesterol Calculated 78 mg/dL (<100); Sodium 141 mmol/L (135-145); Total Protein 7.4 g/dL (6.5-8.0); Triglycerides 121 mg/dL (<150)
[2024-04-08 08:42] LABS: Free T4 (Free Thyroxine) 1.08 ng/dL (0.71-1.85); Thyroid Stimulating Hormone 1.68 uIU/mL (0.32-4.0)
[2024-04-08 08:52] VITALS: BP 145/72; PULSE 76; RESP 17; TEMP 36.4; O2SAT 98
[2024-04-08 08:53] VITALS: BP 145/72
[2024-04-08] MEDS: amLODIPine Besylate 5 MG TABLET PO (08:53)
[2024-04-08] MEDS: busPIRone HCl 5 MG TABLET 15 MG PO ×2 (08:53→20:54)
[2024-04-08] MEDS: Pravastatin Sodium 20 MG TABLET PO (08:54)
[2024-04-08 08:55] LABS: Folate 12.8 ng/mL (> or = 4.0); Vitamin B12 866 pg/mL (200-900)
[2024-04-08 09:00] VITALS: BP 145/72; PULSE 76; RESP 17; TEMP 36.4; O2SAT 98
--- NOTE | 2024-04-08 12:13 | P.CONHOSP_ITS ---
History of Present Illness Data of Consult Service Date: 04/08/24 Requesting physician: Antionette Gomez Primary Care Provider: JENNIE Rosales HPI Reason for consult: Medical H and P 68-year-old female with history of mood disorder, OCD, prediabetes, hypertension, hyperlipidemia, osteoporosis admitted to adult Psychiatry with consult placed to hospitalist service for medical H&P. She was admitted to [facility] from 03/26-04/07 after transferring from [facility] ED. on 03/26 had been found unresponsive and ill-appearing. She was noted to be short of breath with rhonchorous breath sounds and an empty bottle of lorazepam and olanzapine were found next to bed. Due to significant hypoxia in the ED despite supplemental oxygen, she required prompt endotracheal intubation with orogastric tube placed. X-ray of the time showed large right lower lobe infiltrate likely consistent with aspiration pneumonia and she was started on broad-spectrum antibiotics. She was ultimately transferred to [facility] for further ICU care. She was febrile to 100.8 with leukocytosis of 15.0. At [facility], ultimately extubated on 03/27 and was weaned from supplemental O2. She completed course of antibiotics while admitted and was recommended for psychiatric admission after endorsing intentional overdose, intent for self-harm. Since arrival, patient has no complaints, no ongoing cough, shortness of breath, chest pain. Denies any dysphagia. Vitals have been stable, she is afebrile. WBC continues trending down, today 12.9, was 13.1 on discharge from [facility]. Low suspicion for ongoing infection. Review of Systems 2 Review of Systems: General: No fevers, malaise, unintentional weight loss HEENT: No blurred vision, diplopia. No sore throat, nasal congestion, rhinorrhea, sinus pain, ear pain Cardiovascular: No chest pain, palpitations, or leg edema Respiratory: No shortness of breath, wheezing, cough GI: No abdominal pain, nausea, vomiting, diarrhea, constipation, melena, hematochezia : No dysuria, hematuria, increased urinary frequency, decreased urinary output MSK: No myalgia, back pain Neuro: No headaches, weakness, paresthesias Skin: No rashes or lesions PMFSH Medical History Arthritis Panic attacks Osteoporosis PTSD (post-traumatic stress disorder) ELIAN (generalized anxiety disorder) PAC (premature atrial contraction) History of anxiety Dyslipidemia Osteoarthritis (arthritis due to wear and tear of joints) Diverticulitis Essential hypertension Hyperkalemia Depression Family History Mother Dementia Father No problems noted. Surgical History Hx of tonsillectomy Hx of tubal ligation History of total right knee replacement Hx of colonoscopy History of carpal tunnel release Social History Household Members: Spouse Housing: House Are you a primary critical care physician assistant to a significant other at home: No Do you presently have visiting nurse or other home services: No Unable to assess alcohol history related to: Unable to respond Alcohol intake: never Patient Tobacco Use Status: Never used Tobacco e-Cigarette/Vaping Use: Never Used Second Hand Smoke Exposure: No Use of substances other than those prescribed or required for medical reasons: No Currently Displaying Signs/Symptoms of Drug Intoxication Withdrawal: No Have you been hit, kicked, punched, or otherwise hurt by someone within the past year? If so, by whom?: No Do you feel safe in your current relationship?: Yes Is there a partner from a previous relationship who is making you feel unsafe now?: No Are you made to feel afraid or neglected: No Advance Directives: No Advance Directives Information Provided: No Advance Directives Date on File: 07/31/20 Do you have thoughts of harming others: None Do you have a plan to hurt others: No Plan Recently lost weight without trying: No Eating poorly because of decreased appetite: No Nutrition Risks: No Nutritional Risk Patient : No : No Poor oral hygiene: No service: No Current occupational status: retired Current occupation: Right Handed Sexual orientation: Straight/Heterosexual Cognitive needs: No Hearing needs: No Vision needs: No Meds Allergies Allergy/AdvReac Type Severity Reaction Status Date / Time No Known Allergies Allergy Verified 03/26/24 09:49 [No Known Allergies*] Active Medications: Current Medications Acetaminophen (Acetaminophen 325 Mg Tablet) 650 mg PO Q6H PRN PRN Reason: Headache/Pain Mild Scale (1-10 Al Hydroxide/Mg Hydroxide (Magnesium Hydrox/Alum Hydrox 30 Ml Oral.Susp) 30 ml PO Q6H PRN PRN Reason: Heartburn/Nausea Amlodipine Besylate (Amlodipine Besylate 5 Mg Tablet) 5 mg PO DAILY [facility]; Protocol Last Admin: 04/08/24 08:53 Dose: 5 mg Buspirone HCl (Buspirone Hcl 5 Mg Tablet) 15 mg PO BID [facility] Last Admin: 04/08/24 08:53 Dose: 15 mg Hydroxyzine HCl (Hydroxyzine Hcl 25 Mg Tablet) 25 mg PO Q6H PRN PRN Reason: Anxiety Lorazepam (Lorazepam 1 Mg Tablet) 1 mg PO BID PRN PRN Reason: anxiety Magnesium Hydroxide (Milk Of Magnesia 30 Ml Oral.Susp) 30 ml PO DAILY PRN PRN Reason: Constipation Melatonin (Melatonin 3 Mg Tablet) 6 mg PO DAILY@1800 [facility] Last Admin: 04/08/24 03:37 Dose: Not Given Mirtazapine (Mirtazapine 15 Mg Tablet) 15 mg PO BEDTIME [facility] Last Admin: 04/07/24 21:09 Dose: 15 mg Olanzapine (Olanzapine 5 Mg Tablet) 5 mg PO BID PRN PRN Reason: agitation Last Admin: 04/07/24 21:09 Dose: 5 mg Ondansetron HCl (Ondansetron Odt 4 Mg Tab.Rapdis) 4 mg TRANSLINGU Q8H PRN PRN Reason: Nausea and Vomiting Pravastatin Sodium (Pravastatin Sodium 20 Mg Tablet) 20 mg PO DAILY [facility] Last Admin: 04/08/24 08:54 Dose: 20 mg Trazodone HCl (Trazodone Hcl 50 Mg Tablet) 50 mg PO BEDTIME MRX1 PRN PRN Reason: Insomnia Last Admin: 04/07/24 21:09 Dose: 50 mg Vilazodone HCl (Vilazodone Hcl 40 Mg Tablet) 40 mg PO DAILY@1700 [facility] Home Medications ?Medication ?Instructions ?Recorded ?Confirmed ?Last Taken ?Type olanzapine 2.5 mg tablet 5 mg PO BEDTIME 06/29/23 02/03/24 01/18/24 History pravastatin 20 mg tablet 20 mg PO DAILY 06/29/23 02/03/24 01/18/24 History buspirone 15 mg tablet 15 mg PO BID 01/10/24 02/03/24 01/19/24 07:30 History paroxetine HCl 40 mg tablet 40 mg PO DAILY 01/10/24 02/03/24 01/19/24 07:30 History amlodipine 5 mg tablet (Norvasc) 5 mg PO DAILY 01/11/24 02/03/24 01/19/24 07:30 History calcium carbonate (Calcium 600) 1,200 mg PO DAILY 01/11/24 02/03/24 01/18/24 History lactobacillus comb no.10 20 20,000 mmu cells PO DAILY 01/11/24 02/03/24 01/18/24 History billion cell capsule (Probiotic) methylcellulose (laxative) 500 mg 1,500 mg PO DAILY constipation 01/11/24 02/03/24 01/18/24 History tablet (Citrucel) multivitamin 1 tab PO DAILY 01/11/24 02/03/24 01/18/24 History Physical Exam 2 Vital Signs and Narrative: Vital Signs: Last Vital Signs Temp 97.5 F 04/08/24 09:00 Pulse 76 04/08/24 09:00 Resp 17 04/08/24 09:00 BP 145/72 H 04/08/24 09:00 Pulse Ox 98 04/08/24 09:00 O2 Del Method Room Air 04/08/24 09:00 BMI result Body Mass Index 24.4 Constitutional - Awake and Alert, No apparent distress Eyes - PERRLA, EOMI Cardiovascular - S1S2, RRR, No edema Respiratory - Normal lung expansion, Normal respiratory effort, No respiratory distress, CTA bilaterally Gastrointestinal - NT / ND; +BS; No rebound or guarding Extremities - no calf tenderness bilaterally, no swelling Musculoskeletal - Normal inspection, normal ROM Skin - Warm/Dry Neurological - Alert & oriented x3, CN II-XII in tact, 5/5 strength BUE and BLE Psychological - Appropriate affect Results Labs 04/08/24 07:53 04/08/24 07:53 Labs: Laboratory Results - last 24 hr 04/08/24 07:53 MCV 91.1 MCH 30.5 MCHC 33.5 RDW 13.3 Plt Count 640 H D MPV 8.8 L Immature Gran % (Auto) 1.9 H Neut % (Auto) 68.5 Lymph % (Auto) 18.8 L [place] % (Auto) 8.9 Eos % (Auto) 1.2 Baso % (Auto) 0.7 Lymph # (Auto) 2.4 [place] # (Auto) 1.1 Eos # (Auto) 0.2 Baso # (Auto) 0.1 Abs Immat Gran (auto) 0.24 H Absolute Neuts (auto) 8.8 H Absolute Nucleated RBC 0.000 Nucleated RBC % (auto) 0.0 Anion Gap 14 Estim Creat Clear Calc 64.4 Estimated GFR > 60 Fasting Glucose 113 H Calcium 9.4 D Total Bilirubin 0.6 Direct Bilirubin 0.2 AST 15 ALT 22 Alkaline Phosphatase 55 Total Protein 7.4 Albumin 4.0 Triglycerides 121 Cholesterol 128 LDL Cholesterol, Calc 78 HDL Cholesterol 26 L Vitamin B12 866 Folate 12.8 TSH 1.68 Free T4 1.08 Assessment and Plan (1) Routine medical exam: Status: Acute (2) Aspiration pneumonia: Status: Acute Plan 68-year-old female with history of mood disorder, OCD, prediabetes, hypertension, hyperlipidemia, osteoporosis admitted to adult Psychiatry with consult placed to hospitalist service for medical H&P. #Mood disorder/suicide attempt -plan per Psychiatry # aspiration pneumonia -in the setting of intentional overdose with benzodiazepines and antipsychotics. Required intubation 03/26-03/27 for airway protection and severe hypoxia, weaned from supplemental O2 -WBC trending down, VSS. Low suspicion for worsening infection -completed course of abx while at [facility] awaiting transfer # prediabetes -glucose controlled -recommend checking daily POC # hypertension -blood pressure is morning was reasonably controlled however was hypertensive last night -recommend resuming amlodipine 5 mg daily -monitor blood pressures # hyperlipidemia -continue statin Thank you for allowing me to participate in this consult. Signing off at this time. Please do not hesitate to call for further questions.
[2024-04-08] MEDS: Vilazodone HCL 40 MG TABLET PO (18:01)
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
[2024-04-08 20:00] VITALS: BP 141/79; PULSE 110; TEMP 36.2; O2SAT 90
[2024-04-08] MEDS: Melatonin 3 MG TABLET 6 MG PO (20:54)
[2024-04-08] MEDS: Mirtazapine 15 MG TABLET PO (20:55)
[2024-04-08] MEDS: traZODone HCL 50 MG TABLET PO (20:55)
[2024-04-09 09:00] VITALS: BP 143/82; PULSE 81; RESP 16; TEMP 36.4; O2SAT 92
[2024-04-09 09:15] VITALS: BP 143/82
[2024-04-09] MEDS: amLODIPine Besylate 5 MG TABLET PO (09:15)
[2024-04-09] MEDS: Pravastatin Sodium 20 MG TABLET PO (09:16)
[2024-04-09] MEDS: busPIRone HCl 5 MG TABLET 15 MG PO ×2 (09:16→20:37)
[2024-04-09] MEDS: Vilazodone HCL 40 MG TABLET PO (17:02)
--- NOTE | 2024-04-09 17:30 | HO.PSYCHPN ---
Subjective Subjective Date of Service: 04/09/24 Reason For Visit: Unspecified Anxiety Disorder Major Depressive Diso Subjective Notes: Conditional Voluntary Interim History: pt has history of minimizing symptoms; today tells me she has not been depressed; she was not suicidal; she was confused due to pneumonia; says she is not sure psychiatrist is right fit for her; doesn't have outpatient therapist; family wants to be involved. Medication Compliance: Yes Side effects from medications: No Attending Groups: Intermittent Review of Systems Acute medical concerns: No Medical Review of Systems: unchanged Mental Status Exam Mental Status Exam Patient Appearance: Well Grooomed and Appropriate Patient Orientation: Person, Place, Time and Situation Level of Consciousness: Awake and Alert Patient Behavior: Appropriate and Guarded Mood Description: Flat and Sad Affect Description: Flat and Sad Patient Cognition Impaired: No Ability to Follow Directions: Good Speech Pattern: Clear and Soft-Spoken Memory Description: Episodic Impaired Hallucinations: None Delusions: Not Present Thought Process: Goal Oriented and Slowed Thinking Thought Content: positive for Goal Oriented Judgement: Fair Diagnostics Vital Signs (24Hr): Vital Signs - 24 hr 04/08/24 20:00 04/09/24 09:00 04/09/24 09:15 Temperature 97.1 F 97.6 F Pulse Rate 110 H 81 Respiratory Rate 16 Blood Pressure 141/79 H 143/82 H 143/82 H Pulse Oximetry 90 L 92 Oxygen Delivery Method Room Air Room Air BMI result Body Mass Index 24.4 Labs 04/08/24 07:53 04/08/24 07:53 Labs: Laboratory Results - last 48 hr 04/08/24 07:53 WBC 12.9 H RBC 4.39 Hgb 13.4 Hct 40.0 MCV 91.1 MCH 30.5 MCHC 33.5 RDW 13.3 Plt Count 640 H D MPV 8.8 L Immature Gran % (Auto) 1.9 H Neut % (Auto) 68.5 Lymph % (Auto) 18.8 L [place] % (Auto) 8.9 Eos % (Auto) 1.2 Baso % (Auto) 0.7 Lymph # (Auto) 2.4 [place] # (Auto) 1.1 Eos # (Auto) 0.2 Baso # (Auto) 0.1 Abs Immat Gran (auto) 0.24 H Absolute Neuts (auto) 8.8 H Absolute Nucleated RBC 0.000 Nucleated RBC % (auto) 0.0 Sodium 141 Potassium 4.0 D Chloride 103 Carbon Dioxide 28 Anion Gap 14 BUN 10 Creatinine 0.79 Estim Creat Clear Calc 64.4 Estimated GFR > 60 Fasting Glucose 113 H Calcium 9.4 D Total Bilirubin 0.6 Direct Bilirubin 0.2 AST 15 ALT 22 Alkaline Phosphatase 55 Total Protein 7.4 Albumin 4.0 Triglycerides 121 Cholesterol 128 LDL Cholesterol, Calc 78 HDL Cholesterol 26 L Vitamin B12 866 Folate 12.8 TSH 1.68 Free T4 1.08 Medications Medications Current Medications Acetaminophen (Acetaminophen 325 Mg Tablet) 650 mg PO Q6H PRN PRN Reason: Headache/Pain Mild Scale (1-10 Al Hydroxide/Mg Hydroxide (Magnesium Hydrox/Alum Hydrox 30 Ml Oral.Susp) 30 ml PO Q6H PRN PRN Reason: Heartburn/Nausea Amlodipine Besylate (Amlodipine Besylate 5 Mg Tablet) 5 mg PO DAILY [facility]; Protocol Last Admin: 04/09/24 09:15 Dose: 5 mg Buspirone HCl (Buspirone Hcl 5 Mg Tablet) 15 mg PO BID [facility] Last Admin: 04/09/24 09:16 Dose: 15 mg Hydroxyzine HCl (Hydroxyzine Hcl 25 Mg Tablet) 25 mg PO Q6H PRN PRN Reason: Anxiety Lorazepam (Lorazepam 1 Mg Tablet) 1 mg PO BID PRN PRN Reason: anxiety Magnesium Hydroxide (Milk Of Magnesia 30 Ml Oral.Susp) 30 ml PO DAILY PRN PRN Reason: Constipation Melatonin (Melatonin 3 Mg Tablet) 6 mg PO DAILY@1800 [facility] Last Admin: 04/08/24 20:54 Dose: 6 mg Mirtazapine (Mirtazapine 15 Mg Tablet) 15 mg PO BEDTIME [facility] Last Admin: 04/08/24 20:55 Dose: 15 mg Olanzapine (Olanzapine 5 Mg Tablet) 5 mg PO BID PRN PRN Reason: agitation Last Admin: 04/07/24 21:09 Dose: 5 mg Ondansetron HCl (Ondansetron Odt 4 Mg Tab.Rapdis) 4 mg TRANSLINGU Q8H PRN PRN Reason: Nausea and Vomiting Pravastatin Sodium (Pravastatin Sodium 20 Mg Tablet) 20 mg PO DAILY [facility] Last Admin: 04/09/24 09:16 Dose: 20 mg Trazodone HCl (Trazodone Hcl 50 Mg Tablet) 50 mg PO BEDTIME MRX1 PRN PRN Reason: Insomnia Last Admin: 04/08/24 20:55 Dose: 50 mg Vilazodone HCl (Vilazodone Hcl 40 Mg Tablet) 40 mg PO DAILY@1700 [facility] Last Admin: 04/09/24 17:02 Dose: 40 mg Allergies Allergies Allergy/AdvReac Type Severity Reaction Status Date / Time No Known Allergies Allergy Verified 03/26/24 09:49 [No Known Allergies*] Assessment & Plan Assessment & Plan (1) Major depressive disorder: Qualifiers: Major depression episode severity: severe Major depression recurrence: recurrent Psychotic features: without psychotic features Status: Acute Code(s): F32.9 - Major depressive disorder, single episode, unspecified (2) ELIAN (generalized anxiety disorder): Status: Acute Code(s): F41.1 - Generalized anxiety disorder Plan admit to M5 on CV continue medications collateral contact involve family in discharge planning pt needs therapist 04/09/24 15 min check continue treatmetn plan collect collateral from family discharge planning with team Reason for continued inpatient stay Substantial Risk for: harm to self, inability to function and rapid decompensation Time Spent With Patient Time: Total time managing care of this patient today ____ minutes.
[2024-04-09 19:56] VITALS: BP 144/66; PULSE 80; RESP 20; TEMP 36.2; O2SAT 92
[2024-04-09] MEDS: Mirtazapine 15 MG TABLET PO (20:37)
[2024-04-09] MEDS: Melatonin 3 MG TABLET 6 MG PO (20:37)
[2024-04-10 08:00] VITALS: BP 159/84; PULSE 77; RESP 16; TEMP 36.6; O2SAT 93
[2024-04-10] MEDS: amLODIPine Besylate 5 MG TABLET PO (09:37)
[2024-04-10] MEDS: Pravastatin Sodium 20 MG TABLET PO (09:38)
[2024-04-10] MEDS: busPIRone HCl 5 MG TABLET 15 MG PO ×2 (09:38→20:30)
--- NOTE | 2024-04-10 10:11 | P.PNPSI_ITS ---
Subjective Subjective Date of Service: 04/10/24 Reason For Visit: Unspecified Anxiety Disorder Major Depressive Diso Interim History: Met with patient; discussed with team; reviewed chart Patient reports that she is feeling good, good mood, hoping to discharge. Paperhanger Assistant reviewed notes from [facility] which mentioned she had made suicidal comments to her and that said so. Patient adamantly denies that she ever made any suicidal comments at all to anyone and has not felt suicidal at all. She says that she was having a hard time sleeping as she has chronic insomnia and took 1 extra Ativan at bedtime; this seemed to be enough to cause aspiration pneumonia. Patient equally asked bid writer to call her to discuss this with him, reiterating she has not been suicidal at all in any way. Paperhanger Assistant called her who concurs and says he has no idea where the [facility] bid writer got that information. He does not think that this was an intentional overdose and does not think she is suicidal. He is eager for her to come home and feels that she did not need to be transported to the psychiatric unit. Her José Miguel echoes what patient said, that he will now be Doling out the medications going forward. Patient already has an established psychiatric provider with whom she wants to continue. Mental Status Exam Mental Status Exam Narrative: Pt is alert and oriented; behavior calm, cooperative, friendly; dressed in casual attire with brushed hair and adequate hygiene; mood is described as good and affect congruent, calm and bright; eye contact appropriate; Speech is normal rate, volume and prosody and not pressured; no psychomotor agitation/retardation present; thought process is organized and goal directed; Thought content on treatment and recovery; otherwise pertinent to relevant topics; no delusional content, paranoid ideations or grandiosity; no SI, no HI, no passive wish; there is no evidence of perceptual disturbance. Patients insight and judgment are good. Diagnostics Vital Signs (24Hr): Vital Signs - 24 hr 04/09/24 19:56 Temperature 97.1 F Pulse Rate 80 Respiratory Rate 20 Blood Pressure 144/66 H Pulse Oximetry 92 Oxygen Delivery Method Room Air BMI result Body Mass Index 24.4 Labs 04/08/24 07:53 04/08/24 07:53 Medications Medications Current Medications Acetaminophen (Acetaminophen 325 Mg Tablet) 650 mg PO Q6H PRN PRN Reason: Headache/Pain Mild Scale (1-10 Al Hydroxide/Mg Hydroxide (Magnesium Hydrox/Alum Hydrox 30 Ml Oral.Susp) 30 ml PO Q6H PRN PRN Reason: Heartburn/Nausea Amlodipine Besylate (Amlodipine Besylate 5 Mg Tablet) 5 mg PO DAILY [facility]; Protocol Last Admin: 04/10/24 09:37 Dose: 5 mg Buspirone HCl (Buspirone Hcl 5 Mg Tablet) 15 mg PO BID [facility] Last Admin: 04/10/24 09:38 Dose: 15 mg Hydroxyzine HCl (Hydroxyzine Hcl 25 Mg Tablet) 25 mg PO Q6H PRN PRN Reason: Anxiety Lorazepam (Lorazepam 1 Mg Tablet) 1 mg PO BID PRN PRN Reason: anxiety Magnesium Hydroxide (Milk Of Magnesia 30 Ml Oral.Susp) 30 ml PO DAILY PRN PRN Reason: Constipation Melatonin (Melatonin 3 Mg Tablet) 6 mg PO BEDTIME [facility] Last Admin: 04/09/24 20:37 Dose: 6 mg Mirtazapine (Mirtazapine 15 Mg Tablet) 15 mg PO BEDTIME [facility] Last Admin: 04/09/24 20:37 Dose: 15 mg Olanzapine (Olanzapine 5 Mg Tablet) 5 mg PO BID PRN PRN Reason: agitation Last Admin: 04/07/24 21:09 Dose: 5 mg Ondansetron HCl (Ondansetron Odt 4 Mg Tab.Rapdis) 4 mg TRANSLINGU Q8H PRN PRN Reason: Nausea and Vomiting Pravastatin Sodium (Pravastatin Sodium 20 Mg Tablet) 20 mg PO DAILY [facility] Last Admin: 04/10/24 09:38 Dose: 20 mg Trazodone HCl (Trazodone Hcl 50 Mg Tablet) 50 mg PO BEDTIME MRX1 PRN PRN Reason: Insomnia Last Admin: 04/08/24 20:55 Dose: 50 mg Vilazodone HCl (Vilazodone Hcl 40 Mg Tablet) 40 mg PO DAILY@1700 [facility] Last Admin: 04/09/24 17:02 Dose: 40 mg Allergies Allergies Allergy/AdvReac Type Severity Reaction Status Date / Time No Known Allergies Allergy Verified 03/26/24 09:49 [No Known Allergies*] Assessment & Plan Assessment & Plan (1) Major depressive disorder: Qualifiers: Major depression episode severity: severe Major depression recurrence: recurrent Psychotic features: without psychotic features Status: Acute Code(s): F32.9 - Major depressive disorder, single episode, unspecified (2) ELIAN (generalized anxiety disorder): Status: Acute Code(s): F41.1 - Generalized anxiety disorder Plan admit to M5 on CV continue medications collateral contact involve family in discharge planning pt needs therapist 04/09/24 15 min check continue treatmetn plan collect collateral from family discharge planning with team 04/10 Patient reports that she is feeling good, good mood, hoping to discharge. Paperhanger Assistant reviewed notes from [facility] which mentioned she had made suicidal comments to her and that said so. Patient adamantly denies that she ever made any suicidal comments at all to anyone and has not felt suicidal at all. She says that she was having a hard time sleeping as she has chronic insomnia and took 1 extra Ativan at bedtime; this seemed to be enough to cause aspiration pneumonia. Patient equally asked bid writer to call her to discuss this with him, reiterating she has not been suicidal at all in any way. Paperhanger Assistant called her who concurs and says he has no idea where the [facility] bid writer got that information. He does not think that this was an intentional overdose and does not think she is suicidal. He is eager for her to come home and feels that she did not need to be transported to the psychiatric unit. Her José Miguel echoes what patient said, that he will now be Doling out the medications going forward. Patient already has an established psychiatric provider with whom she wants to continue. Impression: Patient denies any SI at all; her fully corroborates her report. Patient is not in imminent risk for harm to self or others and her request for discharge honored. Patient educated on: diagnosis, medication risk/benefits and therapeutic strategies Informed Consent: understands Reason for continued inpatient stay Substantial Risk for: stable for discharge Time Spent With Patient Time: Total time managing care of this patient today ____ minutes.
[2024-04-10] MEDS: Vilazodone HCL 40 MG TABLET PO (16:39)
[2024-04-10 20:00] VITALS: BP 161/84; PULSE 76; RESP 16; TEMP 36.4; O2SAT 95
[2024-04-10] MEDS: Melatonin 3 MG TABLET 6 MG PO (20:30)
[2024-04-10] MEDS: Mirtazapine 15 MG TABLET PO (20:30)
[2024-04-11 08:14] VITALS: BP 149/88; PULSE 80; RESP 17; TEMP 36.4; O2SAT 96
--- NOTE | 2024-04-11 08:28 | P.DS_ITS ---
DS: Providers Provider Date of Service: 04/11/24 Date of admission: 04/07/24 17:51 Date of discharge: 04/11/24 Primary care physician: JENNIE Rosales Attending physician on admission: Ryan Bhardwaj Consults: 04/07/24 15:56 Consult to Hospitalist Routine Comment: Consulting Provider: Hospitalist Reason For Exam: new admit Attending physician on discharge: Ryan Bhardwaj DS: Diagnosis Discharge Diagnosis (1) Major depressive disorder: Status: Acute (2) ELIAN (generalized anxiety disorder): Status: Acute DS: Medications Discharge Medications Home Medications: Home Medications ?Medication ?Instructions ?Recorded ?Confirmed olanzapine 2.5 mg tablet 5 mg PO BEDTIME 06/29/23 02/03/24 pravastatin 20 mg tablet 20 mg PO DAILY 06/29/23 02/03/24 buspirone 15 mg tablet 15 mg PO BID 01/10/24 02/03/24 amlodipine 5 mg tablet (Norvasc) 5 mg PO DAILY 01/11/24 02/03/24 calcium carbonate (Calcium 600) 1,200 mg PO DAILY 01/11/24 02/03/24 lactobacillus comb no.10 20 20,000 mmu cells PO DAILY 01/11/24 02/03/24 billion cell capsule (Probiotic) methylcellulose (laxative) 500 mg 1,500 mg PO DAILY constipation 01/11/24 02/03/24 tablet (Citrucel) multivitamin 1 tab PO DAILY 01/11/24 02/03/24 Previous Rx's ?Medication ?Instructions ?Recorded mirtazapine 15 mg tablet 15 mg PO BEDTIME 30 days #30 tabs 10/28/22 vilazodone 40 mg tablet (Viibryd) 40 mg PO DAILY@1700 #0 tabs 04/11/24 Mental Status Exam Mental Status Exam Narrative: Pt is alert and oriented; behavior calm, cooperative, friendly; dressed in casual attire with brushed hair and adequate hygiene; mood is described as good and affect congruent, calm and bright; eye contact appropriate; Speech is normal rate, volume and prosody and not pressured; no psychomotor agitation/retardation present; thought process is organized and goal directed; Thought content on treatment and recovery; otherwise pertinent to relevant topics; no delusional content, paranoid ideations or grandiosity; no SI, no HI, no passive wish; there is no evidence of perceptual disturbance. Patients insight and judgment are good. Data Data Completed and Pending Completed studies during hospitalization [Text1]: 04/08/24 07:53 WBC 12.9 H RBC 4.39 Hgb 13.4 Hct 40.0 MCV 91.1 MCH 30.5 MCHC 33.5 RDW 13.3 Plt Count 640 H D MPV 8.8 L Immature Gran % (Auto) 1.9 H Neut % (Auto) 68.5 Lymph % (Auto) 18.8 L [place] % (Auto) 8.9 Eos % (Auto) 1.2 Baso % (Auto) 0.7 Lymph # (Auto) 2.4 [place] # (Auto) 1.1 Eos # (Auto) 0.2 Baso # (Auto) 0.1 Abs Immat Gran (auto) 0.24 H Absolute Neuts (auto) 8.8 H Absolute Nucleated RBC 0.000 Nucleated RBC % (auto) 0.0 Sodium 141 Potassium 4.0 D Chloride 103 Carbon Dioxide 28 Anion Gap 14 BUN 10 Creatinine 0.79 Estim Creat Clear Calc 64.4 Estimated GFR > 60 Fasting Glucose 113 H Calcium 9.4 D Total Bilirubin 0.6 Direct Bilirubin 0.2 AST 15 ALT 22 Alkaline Phosphatase 55 Total Protein 7.4 Albumin 4.0 Triglycerides 121 Cholesterol 128 LDL Cholesterol, Calc 78 HDL Cholesterol 26 L Vitamin B12 866 Folate 12.8 TSH 1.68 Free T4 1.08 DS: Summary Hospital Course Hospital Course: Hpi: 68 yo woman with hx of depression, suicide attempts, anxiety, OCD, pre diabetes, HTN, and osteoporosis initially seen at [facility] for possible overdose but then transferred to [facility] for aspiration pneumonia . Patient was in the ICU U and intubated she was extubated on 610. Pt reports she got home she took ?a couple extra [ativa] states that she was trying to sleep... At [facility], note reports that family reported that they had been worried about her and that she had been making suicidal statements and for this reason she was sectioned 12 and transferred to [facility] admitted to on a conditional voluntary. Pt denies any SI at all, current or recent and asks for collateral to be obtained from family. Hospital course: On admission patient reported good mood; denied any SI at all, including recently., She said this was in no way a suicide attempt and does not know why it was reported as such. She reports that possibly her family was concerned because she was not herself but it turned out to be pneumonia. Today she tells me she has not been suicidal and she has no SI now. She is focused on going home. She does state that she has no therapist she has on a waiting list. Patient continued to report reports that she is feeling good, good mood, hoping to discharge. Courtesy Bus Driver reviewed notes from [facility] which mentioned she had made suicidal comments to her and that said so. Patient adamantly denies that she ever made any suicidal comments at all to anyone and has not felt suicidal at all. She says that she was having a hard time sleeping as she has chronic insomnia and took 1 extra Ativan at bedtime; this seemed to be enough to cause aspiration pneumonia. Patient eagerly asked keno writer to call her to discuss this with him, reiterating she has not been suicidal at all, in any way which she says her will agree. Courtesy Bus Driver called her who concurs and says he has no idea where the [facility] keno writer got that information other than taking some discussion out of context. He does not think that this was an intentional overdose and does not think she is suicidal. He is eager for her to come home and feels that she did not need to be transported to the psychiatric unit. Her José Miguel echoes what patient said, that he will now be Doling out the medications going forward. Patient already has an established psychiatric provider with whom she wants to continue. Impression: Both patient and maintain that this was not a suicide attempt, not in intentional overdose and that patient has been otherwise doing well except for her chronic insomnia which was made a little worse following recent knee surgery. Patient's agrees with patient, that she does not need inpatient admission. Patient has remained in good behavioral and impulse con trol throughout her time in the unit, appropriate with peers and staff and appears to be at her baseline. Patient is on medication that she finds helpful and likes her provider. Patient is returning to live with her supportive who will be managing the medications going forward. Patient is not in imminent risk for harm to self or others and her request for discharge honored. Time spent discussing smoking cessation with patient: 3 to 10 minutes Status at Discharge Functional status at discharge: independent ambulation Overall status at discharge: patient is back to baseline Time Spent with Patient Time attestation: Total time managing care of this patient today _40___ minutes. Time spent: Greater than 30 minutes Discharge Plan Discharge Anticipated Discharge Date/Time: 04/11/24 11:00 Patient Disposition: Home, Self-Care Discharge Diagnosis: MDD, recurrent, severe w/out psychosis, in full remission Referrals: Lizzette Little PA [Primary Care Provider] - 1 Week Discharge Medications: New vilazodone [Viibryd] 40 mg Tablet 40 mg PO DAILY@1700 Qty: 0 0RF Continued mirtazapine 15 mg Tablet 15 mg PO BEDTIME 30 Days Qty: 30 2RF olanzapine 2.5 mg tablet 5 mg PO BEDTIME pravastatin 20 mg tablet 20 mg PO DAILY buspirone 15 mg tablet 15 mg PO BID Probiotic 20 billion cell Capsule 20,000 mmu cells PO DAILY Rx Instructions: administer with a meal multivitamin Tablet 1 tab PO DAILY amlodipine [Norvasc] 5 mg tablet 5 mg PO DAILY calcium carbonate [Calcium 600] 600 mg calcium (1,500 mg) tablet 1,200 mg PO DAILY Citrucel 500 mg tablet 1,500 mg PO DAILY Rx Instructions: Take two tablets by mouth twice a day Discontinued paroxetine HCl 40 mg tablet 40 mg PO DAILY acetaminophen 325 mg Tablet 650 mg PO Q6H PRN (Reason: Pain, Mild (Pain Scale 1-3)) 30 Days Qty: 240 0RF Discharge Orders: Discharge Order (Routine); Ordered 04/11/24 Ordered By: Ryan Bhardwaj Diet: Regular diet Activity on Discharge: As tolerated Stand Alone Forms: Patient Portal Discharge page, Community Support Print Language: South African Care Plan Goals: Maintain mood and safe behaviors Take medications as prescribed Practice coping skills Continue with outpatient providers and reach out to them as needed Health Concerns: Mood stability and behaviors Hypertension Plan of Treatment: Follow up with your PCP, psychiatric provider and other outpatient providers regarding above concerns Take medications as prescribed Assessment: Risk assessment at time of discharge:? Patient was interviewed prior to discharge and found to be fully oriented and without any SI or HI. Patient has improved insight and judgment and wants to continue treatment. Patient is not in imminent risk of harm to self or others and has a safety plan that includes presenting to the closest ER or calling 911 if feeling unsafe.? Patient has been observed closely by nursing and unit staff throughout admission; patient has not engaged in any behaviors that suggest dangerousness to self or others and has demonstrated appropriate behaviors and impulse control
[2024-04-11 09:08] VITALS: BP 149/88
[2024-04-11] MEDS: amLODIPine Besylate 5 MG TABLET PO (09:08)
[2024-04-11] MEDS: busPIRone HCl 5 MG TABLET 15 MG PO (09:08)
[2024-04-11] MEDS: Pravastatin Sodium 20 MG TABLET PO (09:10)
== END 2024-04-11 11:07 | disposition home or self-care (01) | DRG 885 ==
PROVIDERS: Clinical Nurse Specialist Psychiatric/Mental Health; Admitting Provider Psychiatry & Neurology Psychiatry; PCP Student in an Organized Health Care Education/Training Program; Visit Provider Psychiatry & Neurology Psychiatry
DX: F33.2 Major depressive disorder, recurrent severe without psychotic features (principal); F41.1 Generalized anxiety disorder; R73.03 Prediabetes; I10 Essential (primary) hypertension; E78.5 Hyperlipidemia, unspecified; Z91.51 Personal history of suicidal behavior; F51.04 Psychophysiologic insomnia; Z79.899 Other long term (current) drug therapy
CPT/HCPCS: 36415; 80053; 80061; 80076; 82607; 82746; 84439; 84443; 85025

== ENCOUNTER → 2024-04-07 17:51 | Outpatient (BNV) | payer MEDICARE, OTHER, SELFPAY | PROVIDERS: Admitting Provider Psychiatry & Neurology Psychiatry; PCP Student in an Organized Health Care Education/Training Program; Visit Provider Physician Assistant | DX: Z02.2 Encounter for examination for admission to residential institution (principal) | CPT/HCPCS: 99429 ==

== ENCOUNTER → 2024-04-07 17:51 | Outpatient (BNV) | payer MEDICARE, OTHER, SELFPAY | PROVIDERS: Admitting Provider Psychiatry & Neurology Psychiatry; PCP Student in an Organized Health Care Education/Training Program; Visit Provider Clinical Nurse Specialist Psychiatric/Mental Health | DX: F32.2 Major depressive disorder, single episode, severe without psychotic features (principal); F41.1 Generalized anxiety disorder | CPT/HCPCS: 90792; 99231; 99232; 99239 ==

== ENCOUNTER 2024-04-14 15:27 | Emergency (ER) | payer MEDICARE, OTHER, SELFPAY ==
[2024-04-14 15:28] VITALS: BP 144/92; PULSE 101; RESP 17; TEMP 36.4; O2SAT 94; BMI 23.5
--- NOTE | 2024-04-14 15:30 | ED.GENADULT ---
HPI - General Adult General Chief complaint: Psychiatric Symptoms Stated complaint: Crisis Time Seen by Provider: 04/14/24 15:49 Source: EMS Mode of arrival: EMS Limitations: altered mental status (? intoxicated vs psych ) History of Present Illness ED Provider: Sherwin CAMPBELL HPI narrative: 68 yo f hx of panic d/o, depression, PTSD, anxiety, dyslipidemia presents w/ depression, anxiety and inability to sleep x few days asking for help . Here with . Was recently inpatient here and felt like it was helpful but now she feels like she needs help again. Denies SI and HI. No medical complaints, cp, osb, n/v/d, abd pain, headache, vision changes, dizziness, weakness. Related Data Home Medications ?Medication ?Instructions ?Recorded ?Confirmed olanzapine 2.5 mg tablet 5 mg PO BEDTIME 06/29/23 04/14/24 pravastatin 20 mg tablet 20 mg PO DAILY 06/29/23 04/14/24 amlodipine 5 mg tablet (Norvasc) 5 mg PO DAILY 01/11/24 04/14/24 multivitamin 1 tab PO DAILY 01/11/24 04/14/24 Previous Rx's ?Medication ?Instructions ?Recorded vilazodone 40 mg tablet (Viibryd) 40 mg PO DAILY@1700 30 days #30 04/11/24 tabs Allergies Allergy/AdvReac Type Severity Reaction Status Date / Time No Known Allergies Allergy Verified 04/14/24 15:33 [No Known Allergies*] Review of Systems Review of Systems: Yes all other systems are reviewed and are negative PMFSH Past Medical History Attestation statement: The following information was validated with the patient. Source: old records reviewed and nursing notes reviewed Medical History Arthritis Panic attacks Osteoporosis PTSD (post-traumatic stress disorder) ELIAN (generalized anxiety disorder) PAC (premature atrial contraction) History of anxiety Dyslipidemia Osteoarthritis (arthritis due to wear and tear of joints) Diverticulitis Essential hypertension Hyperkalemia Depression Surgical History Hx of tonsillectomy Hx of tubal ligation History of total right knee replacement Hx of colonoscopy History of carpal tunnel release Family History Family History Mother Dementia Father No problems noted. Social History Social History Household Members: Spouse Housing: House Are you a primary care transition mgr to a significant other at home: No Do you presently have visiting nurse or other home services: No Unable to assess alcohol history related to: Unable to respond Alcohol intake: never Patient Tobacco Use Status: Never used Tobacco Smoked in Last 30 Days: No e-Cigarette/Vaping Use: Never Used Second Hand Smoke Exposure: No Use of substances other than those prescribed or required for medical reasons: Yes Substance Use Type: Marijuana Any prior treatment program specific to substance use: No Advance Directives: No Advance Directives Information Provided: No Advance Directives Date on File: 07/31/20 Do you have a plan to hurt others: No Plan service: No Current occupational status: retired Current occupation: Right Handed Sexual orientation: Straight/Heterosexual Cognitive needs: No Hearing needs: No Vision needs: No Physical Exam ED Vital Signs: Vital Signs - 24 hr 04/14/24 15:28 04/14/24 15:48 Temperature 97.5 F 97.5 F Pulse Rate 101 H 101 H Respiratory Rate 17 17 Blood Pressure 144/92 H 144/92 H Pulse Oximetry 94 94 Oxygen Delivery Method Room Air Room Air BMI result Body Mass Index 23.5 vss Appearance: Alert.? Oriented X3.? No acute distress.?Flat affect Head: Normocephalic, atraumatic, no step-offs or deformities Eyes: Pupils equal, round and reactive to light.? Neck: Normal inspection.? Neck supple.? CVS: Normal heart rate and rhythm.? Pulses normal.? Respiratory: No respiratory distress.? Breath sounds normal.? Abdomen: Soft and nontender.? Skin: Skin warm and dry.? Normal skin color.? Normal skin turgor.? Extremities: No lower extremity edema.? No calf ttp. 5/5 strength to bilateral upper and lower extremities Neuro: Oriented X 3.? No motor deficit.? No sensory deficit. CN 2-12 intact Course Course Course Narrative: RME performed by Cee Driscoll PA-C. Patient is a 68 year old assigned female at presenting to the emergency department with difficulty sleeping / crisis. Was just discharged from [facility]. Detailed physical exam and review of systems are deferred to the turbo generator oiler. agricultural equipment operator made aware of patient. Reevaluation(s) Reevaluation #1: Patient noted to have leukocytosis no left shift this appears to be around her baseline. Patient also has thrombo cytosis with a platelet count of 608 this is lower than her last visit. This could be medication induced. Patient's potassium 3.0, will give oral potassium at this time. Ethanol negative. UA, urine toxicology is still pending. At this time patient will be placed into physician observation to allow more time to be evaluated by care team and psychiatry. At time observation was started patient common cooperative no acute distress will continue to monitor Time: 18:12 Medications Administered Discontinued Medications Generic Name Dose Route Start Last Admin Trade Name Freq PRN Reason Stop Dose Admin Lorazepam 1 mg 04/14/24 16:49 04/14/24 16:57 Lorazepam 1 Mg Tablet PO 04/14/24 16:50 1 mg ONCE ONE Administration Medical Decision Making Medical Decision Making MDM Narrative: 1640 68 yo f presents w/ worseing anxietym, depression and insomnia. Recent psych admission PE flat affect otherwise benign hx and pe concerning for acute psych episode, paranoia, anxiety and depression. Unlikely metabolic derangments Plan- labs, care team, safety checks Differential Diagnosis Differential Diagnoses: The differential diagnosis associated with the presentation includes hx and pe concerning for acute psych episode, paranoia, anxiety and depression. Unlikely metabolic derangments Admission/Observation Consideration of admission/observation: Escalation of care including admission/observation considered posisble Consult Healthcare Provider Management of the patient was discussed with: Behavioral Health Provider Lab Data [facility] Lab Attestation statement: I reviewed the patient's lab results. 04/14/24 16:52 04/14/24 16:52 Labs: Lab Results 04/14/24 Range/Units 16:52 WBC 13.7 H (4.8-10.8) X10*3/uL RBC 4.65 (4.20-5.50) X10*6/uL Hgb 14.1 (12.0-16.0) g/dl Hct 41.4 (37.0-47.0) % MCV 89.0 (80.0-98.0) fL MCH 30.3 (27.0-33.0) pg MCHC 34.1 (31.0-35.0) g/dl RDW 13.5 (11.0-16.0) % Plt Count 608 H (160-400) X10*3/uL MPV 8.9 L (9.4-12.3) fL Immature Gran % (Auto) 0.7 H (0.0-0.4) % Neut % (Auto) 72.7 (45-73) % Lymph % (Auto) 16.8 L (20-40) % [place] % (Auto) 8.8 (2-11) % Eos % (Auto) 0.3 (0-4) % Baso % (Auto) 0.7 (0-2) % Lymph # (Auto) 2.3 (1.2-4.9) X10*3/uL [place] # (Auto) 1.2 (0.1-1.2) X10*3/uL Eos # (Auto) 0.0 (0.0-0.4) X10*3/uL Baso # (Auto) 0.1 (0.0-0.2) X10*3/uL Abs Immat Gran (auto) 0.10 H (0.00-0.03) X10*3/uL Absolute Neuts (auto) 9.9 H (2.0-8.3) x10*3/uL Absolute Nucleated RBC 0.000 (0.0-0.012) X10*3/uL Nucleated RBC % (auto) 0.0 (0.0-0.2) /100WBC Sodium 141 (135-145) mmol/L Potassium 3.0 L D (3.3-5.1) mmol/L Chloride 104 (96-108) mmol/L Carbon Dioxide 26 (22-29) mmol/L Anion Gap 14 (12-20) BUN 9 (9-16) mg/dL Creatinine 0.85 (0.5-1.4) mg/dL Estim Creat Clear Calc 59.8 Estimated GFR > 60 Random Glucose 142 H (60-115) mg/dL Calcium 9.5 (8.4-10.2) mg/dL Total Bilirubin 0.8 (0.0-1.0) mg/dL AST 24 (5-31) U/L ALT 26 (0-31) U/L Alkaline Phosphatase 55 (39-117) U/L Total Protein 7.8 (6.5-8.0) g/dL Albumin 4.4 (3.5-5.0) g/dL Ethyl Alcohol < 10 mg/dL External Record Review External record reviewed: Inpatient record, Office record, Outpatient record, Prior outpatient labs, Prior outpatient radiology, Primary care record and Outside ED record Chronic Conditions Patient?s care impacted by: Hypertension and Other (psych ) Critical Care Time Critical Care Time Critical Care Time: No Discharge Plan Discharge Clinical Impression: Acute hypokalemia, Depression, Anxiety Patient Disposition: Still a Patient Prescriptions: No Action olanzapine 2.5 mg tablet 5 mg PO BEDTIME pravastatin 20 mg tablet 20 mg PO DAILY vilazodone [Viibryd] 40 mg tablet 40 mg PO DAILY@1700 30 Days Qty: 30 0RF Rx Instructions: must administer with a meal/food multivitamin Tablet 1 tab PO DAILY amlodipine [Norvasc] 5 mg tablet 5 mg PO DAILY Interventions: [place]-Suicide Risk Severity Scale Last Done: 04/14/24 15:50 Print Language: Upper Sorbian
[2024-04-14 15:48] VITALS: BP 144/92; PULSE 101; RESP 17; TEMP 36.4; O2SAT 94
--- NOTE | 2024-04-14 15:53 | PC.NURSE ---
Patient self presented to [facility] ED on a voluntary basis due to not sleeping, racing thoughts and feeling screwed up . The patient was recently discharged from . The patient presents apprehensive and withdrawn. During assessment when asked if she feels like hurting herself she took a 30 second pause and said No . Patient denies HI, AH and VH.
[2024-04-14] MEDS: LORazepam 1 MG TABLET PO ×2 (16:57→18:19)
[2024-04-14 17:05] LABS: Basophils Absolute Auto 0.1 X10*3/uL (0.0-0.2); Basophils Percent Auto 0.7 % (0-2); Eosinophils Percent Auto 0.3 % (0-4); Hematocrit 41.4 % (37.0-47.0); Hemoglobin 14.1 g/dl (12.0-16.0); Imm Gran Pct Auto 0.7 % (0.0-0.4); Lymphocytes Absolute Auto 2.3 X10*3/uL (1.2-4.9); Lymphocytes Percent Auto 16.8 % (20-40); Mean Corpuscular HGB Conc 34.1 g/dl (31.0-35.0); Mean Corpuscular Hemoglobin 30.3 pg (27.0-33.0); Mean Platelet Volume 8.9 fL (9.4-12.3); Monocytes Absolute Auto 1.2 X10*3/uL (0.1-1.2); Monocytes Percent Auto 8.8 % (2-11); Neutrophils Absolute Auto 9.9 x10*3/uL (2.0-8.3); Neutrophils Percent Auto 72.7 % (45-73); Platelet Count 608 X10*3/uL (160-400); Red Blood Count 4.65 X10*6/uL (4.20-5.50); Red Cell Distribution Width 13.5 % (11.0-16.0); White Blood Count 13.7 X10*3/uL (4.8-10.8)
[2024-04-14 17:14] LABS: Alanine Aminotransferase 26 U/L (0-31); Albumin Level 4.4 g/dL (3.5-5.0); Alkaline Phosphatase 55 U/L (39-117); Anion Gap 14 (12-20); Aspartate Amino Transferase 24 U/L (5-31); Bilirubin Total 0.8 mg/dL (0.0-1.0); Blood Urea Nitrogen 9 mg/dL (9-16); Calcium 9.5 mg/dL (8.4-10.2); Carbon Dioxide 26 mmol/L (22-29); Chloride 104 mmol/L (96-108); Creatinine Clr Calc Pharmacy 59.8; Estimated Glomerular Filt Rate > 60; Ethanol < 10 mg/dL; Glucose Random 142 mg/dL (60-115); Sodium 141 mmol/L (135-145); Total Protein 7.8 g/dL (6.5-8.0)
[2024-04-14] MEDS: Potassium Chloride Packet 20 MEQ PACKET 40 MEQ PO (18:15)
[2024-04-14] MEDS: diphenhydrAMINE HCL 25 MG CAPSULE PO (18:18)
--- NOTE | 2024-04-14 19:08 | PC.NURSE ---
patient appears to remain at rest at present respirations are even and unlabored patient appears in no distress
[2024-04-14] MEDS: OLANZapine 5 MG TABLET PO (22:55)
[2024-04-14 23:11] LABS: Appearance Urine Clear; Color Urine Dark Yellow; Glucose Urine UA Negative (Negative); Leukocyte Esterase Urine Trace (Negative); Nitrite Urine Negative (Negative); PH 5.5 (5.0-9.0); Specific Gravity - Urine 1.025 (1.005-1.025); UMIC TRIGGER UACC YES; Urine Blood Negative (Negative); Urine Ketones Trace mg/dL (Negative); Urine Protein 30 (1+) mg/dL (Neg-Trace)
[2024-04-14 23:21] LABS: Amphetamine Screen Urine Not Detected (Not Detect); Barbiturates, Urine Not Detected (Not Detect); Benzodiazepines Screen Urine Not Detected (Not Detect); Buprenorphine Scr Not Detected (Not Detect); Cannabinoid Screen Urine POSITIVE (Not Detect); Cocaine Screen Urine Not Detected (Not Detect); Fentanyl, urine Not Detected (Not Detect); Methadone Screen, Urine Not Detected (Not Detect); Opiate Screen Urine Not Detected (Not Detect); Oxycodone Screen Urine Not Detected (Not Detect); Phencyclidine Screen Urine Not Detected (Not Detect)
[2024-04-14 23:29] LABS: Bacteria Urine None Seen (None Seen); Granular Casts Urine Present; RBC Urine 0-2 /HPF (0-2); WBC Urine 0-5 /HPF (0-5)
[2024-04-15 05:38] VITALS: BP 141/85; PULSE 84; RESP 16; TEMP 36.8
--- NOTE | 2024-04-15 07:53 | PC.NURSE ---
Assumed care of patient at 0645, patient appears to be in no apparent distress at this time, sitting upright in bed, ate breakfast. Patient aware of plan of care for inpatient bedsearch at this time
[2024-04-15 07:58] VITALS: RESP 14
[2024-04-15] MEDS: amLODIPine Besylate 5 MG TABLET PO (09:14)
[2024-04-15] MEDS: Multivitamin TABLET 1 TAB PO (09:14)
--- NOTE | 2024-04-15 09:29 | PC.NURSE ---
0920: called pharmacy for Pravastatin
--- NOTE | 2024-04-15 09:29 | PC.NURSE ---
Patient reports she thinks she needs medications to help her sleep, she suggested the following medications Benadryl, Remeron, Olanzapine
[2024-04-15] MEDS: Pravastatin Sodium 20 MG TABLET PO (10:17)
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
[2024-04-15 14:00] VITALS: BP 147/84; PULSE 92; RESP 16; TEMP 36.4; O2SAT 97
[2024-04-15] MEDS: Vilazodone HCL 40 MG TABLET PO (17:30)
--- NOTE | 2024-04-15 18:59 | PC.NURSE ---
patient starting to have dinner, appears in no distress at present. easily engaged by staff.
[2024-04-15] MEDS: traZODone HCL 50 MG TABLET PO (19:52)
[2024-04-15] MEDS: OLANZapine 5 MG TABLET PO (19:53)
[2024-04-16 05:02] VITALS: BP 153/94; PULSE 91; RESP 15; TEMP 36.7; O2SAT 93
[2024-04-16] MEDS: Potassium Chloride Packet 20 MEQ PACKET 40 MEQ PO (08:48)
[2024-04-16] MEDS: amLODIPine Besylate 5 MG TABLET PO (08:48)
[2024-04-16] MEDS: Multivitamin TABLET 1 TAB PO (08:48)
--- NOTE | 2024-04-16 09:10 | PC.NURSE ---
Assumed care of patient at 0645, patient appears to be in no apparent distress, visited patient without issue. Patient now resting in bed, pending psych follow up
[2024-04-16] MEDS: Pravastatin Sodium 20 MG TABLET PO (09:39)
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
[2024-04-16 11:48] VITALS: RESP 16
[2024-04-16 12:12] VITALS: BP 136/68; PULSE 67; RESP 14; TEMP 36.6; O2SAT 97
--- NOTE | 2024-04-16 12:25 | MHC.CARE ---
Patient reassessed by psychiatry and the CARE Team, at this time she does not require an inpatient psychiatric admission. Dr. Rosado updated
--- NOTE | 2024-04-17 14:34 | MHC.CARE ---
RAD Team completed a referral to [facility] for this individual. CARE Team completed a PHP referral to [place].
== END 2024-04-16 12:14 | disposition home or self-care (01) ==
PROVIDERS: Emergency Medicine; Emergency Provider Emergency Medicine; PCP Student in an Organized Health Care Education/Training Program
DX: F33.1 Major depressive disorder, recurrent, moderate (principal); F41.1 Generalized anxiety disorder; E87.6 Hypokalemia; F43.10 Post-traumatic stress disorder, unspecified; R41.82 Altered mental status, unspecified; M25.50 Pain in unspecified joint; Z79.899 Other long term (current) drug therapy
CPT/HCPCS: 36415; 80053; 80307; 81001; 85025; 99285; S9485

== ENCOUNTER → 2024-04-14 16:01 | Outpatient (BNV) | payer MEDICARE, OTHER, SELFPAY | PROVIDERS: Emergency Provider Emergency Medicine; PCP Student in an Organized Health Care Education/Training Program; Visit Provider Psychiatry & Neurology Psychiatry | DX: F32.A Depression, unspecified (principal) | CPT/HCPCS: 99213; 99222 ==

== ENCOUNTER 2024-04-20 14:32 | Emergency (ER) | payer MEDICARE, OTHER, SELFPAY ==
[2024-04-20 14:32] VITALS: BP 172/92; PULSE 87; RESP 16; TEMP 36.6; O2SAT 98; BMI 23.8
--- NOTE | 2024-04-20 14:42 | ED_ITS ---
HPI - General Adult General Chief complaint: Psychiatric Symptoms Stated complaint: Crisis Time Seen by Provider: 04/20/24 14:41 Source: patient Mode of arrival: ambulatory Limitations: no limitations History of Present Illness ED Provider: Cee Driscoll PA-C HPI narrative: Patient is a 68 year old assigned female at with a history of ELIAN, HTN, and PTSD presenting to the emergency department today with SI without a plan. Patient states that she has been having increased depression and suicidal ideation. Patient denies any dizziness, lightheadedness, abdominal pain, nausea, vomiting, fever, chills, blurry vision, double vision, loss of vision, chest pain, difficulty breathing, shortness of breath, back pain, night sweats, pain with urination, increased urinary frequency, increased urinary urgency, blood in her urine or stool, syncope or a near syncopal episode, recent trauma or falls, bowel incontinence, bladder incontinence, or any other complaints at this time. Onset (ago): day(s) Relieving factors: none Exacerbating factors: none Associated symptoms: denies other symptoms Treatments prior to arrival: none Related Data Home Medications ?Medication ?Instructions ?Recorded ?Confirmed pravastatin 20 mg tablet 20 mg PO DAILY 06/29/23 04/20/24 amlodipine 5 mg tablet (Norvasc) 5 mg PO DAILY 01/11/24 04/20/24 multivitamin 1 tab PO DAILY 01/11/24 04/20/24 buspirone 15 mg tablet 15 mg PO BID 04/20/24 04/20/24 Previous Rx's ?Medication ?Instructions ?Recorded olanzapine 5 mg tablet 5 mg PO BEDTIME 30 days #30 tabs 04/16/24 trazodone 50 mg tablet 50 mg PO BEDTIME 30 days #30 tabs 04/16/24 vilazodone 40 mg tablet (Viibryd) 40 mg PO DAILY@1700 30 days #30 04/16/24 tabs eszopiclone 1 mg tablet (Lunesta) 1 mg PO BEDTIME #15 tabs 04/21/24 Allergies Allergy/AdvReac Type Severity Reaction Status Date / Time No Known Allergies Allergy Verified 04/20/24 14:36 [No Known Allergies*] Review of Systems 2 Constitutional: Constitutional: Reports no additional constitutional complaints, Denies chills, Denies fever(s) and Denies night sweats Eyes: Eyes: Reports no additional eye complaints, Denies blurry vision, Denies change in vision, Denies diplopia, Denies eye discharge, Denies loss of vision and Denies eye pain ENT: Denies dizziness Cardiovascular: Cardiovascular: Reports no additional cardiovascular complaints, Denies chest pain, Denies lightheadedness, Denies Loss of Consciousness and Denies dyspnea Respiratory: Respiratory: Reports no additional respiratory complaints and Denies dyspnea Gastrointestinal: Gastrointestinal: Reports no additional gastrointestinal complaints, Denies abdominal pain, Denies melena, Denies hematochezia, Denies change in bowel habits and Denies change in stool character Genitourinary: Genitourinary: Denies hematuria, Denies urinary frequency, Denies dysuria, Denies urinary incontinence, Denies urinary hesitancy and Denies urinary urgency Musculoskeletal: Musculoskeletal: Reports no additional musculoskeletal complaints, Denies numbness and Denies tingling Neurologic: Denies dizziness, Denies loss of vision, Denies numbness and Denies tingling Psychiatric: Psychiatric: Reports depression, Denies homicidal ideation and Reports suicidal ideation Endocrine: Endocrine: Reports no additional endocrine complaints Hematologic/Lymphatic: Hematologic/Lymphatic: Reports no additional hematologic/lymphatic complaints Allergic/Immunologic: Allergic/Immunologic: Reports no additional allergic/immunologic complaints [facility] Past Medical History Attestation statement: The following information was validated with the patient. Source: old records reviewed and nursing notes reviewed Medical History Arthritis Panic attacks Osteoporosis PTSD (post-traumatic stress disorder) ELIAN (generalized anxiety disorder) PAC (premature atrial contraction) History of anxiety Dyslipidemia Osteoarthritis (arthritis due to wear and tear of joints) Diverticulitis Essential hypertension Hyperkalemia Depression Surgical History Hx of tonsillectomy Hx of tubal ligation History of total right knee replacement Hx of colonoscopy History of carpal tunnel release Family History Family History Mother Dementia Father No problems noted. Social History Social History Household Members: Spouse Housing: House Are you a primary care team coordinator scheduler to a significant other at home: No Do you presently have visiting nurse or other home services: No Unable to assess alcohol history related to: Unable to respond Alcohol intake: never Patient Tobacco Use Status: Never used Tobacco e-Cigarette/Vaping Use: Never Used Second Hand Smoke Exposure: No Substance Use Type: Marijuana Advance Directives Date on File: 07/31/20 service: No Current occupational status: retired Current occupation: Right Handed Sexual orientation: Straight/Heterosexual Cognitive needs: No Hearing needs: No Vision needs: No Physical Exam ED Vital Signs: Vital Signs - 24 hr 04/21/24 06:14 Temperature 97.4 F Pulse Rate 84 Blood Pressure 151/92 H Pulse Oximetry 95 Oxygen Delivery Method Room Air BMI result Body Mass Index 23.8 Const General: cooperative, no acute distress, alert and awake Nutritional Appearance: well nourished Orientation/consciousness: patient oriented x3 Limitations: no limitations HENMT Head: Yes normal to inspection and Yes atraumatic Ears: hearing grossly normal bilaterally and external ears normal General nose exam: Normal external nose present, no nasal discharge noted and no epistaxis Face and sinus: Yes normal facial exam, No abrasion and No laceration Mouth: Normal oral and palatal mucosa present, no drooling and no muffled voice Eyes General: appearance normal, both eyes and all related structures Periorbital: periorbital findings normal Eyelids: Yes eyelids normal Conjunctivae: conjunctivae normal Pupils: Equal, round and reactive pupils present EOM: EOMs intact bilaterally Neck Neck: Yes normal visual inspection, Yes full ROM and Yes no lymphadenopathy Chest Chest palpation & inspection: normal inspection of the chest Resp Effort & Inspection: normal respiratory effort and able to speak in complete sentences GI Inspection: Yes normal to inspection Neuro General: patient oriented x3 and moves all extremities Cranial nerves: Yes Equal, round and reactive pupils present Cognition (Neuro): normal cognition Extrem General: Yes normal to inspection, Yes full ROM and Yes capillary refill normal Psych Appearance: grossly normal Mental Status: mental status grossly normal Affect: Sad affect present Attitude: cooperative Thought content: Suicidality present Medications Administered Generic Name Dose Route Start Last Admin Trade Name Freq PRN Reason Stop Dose Admin Amlodipine Besylate 5 mg 04/21/24 09:00 04/21/24 08:33 Amlodipine Besylate 5 Mg Tablet PO 5 mg DAILY HARESH Administration Protocol Multivitamins/Vitamin C 1 tab 04/21/24 09:00 04/21/24 08:33 Multivitamin Tablet PO 1 tab DAILY HARESH Administration Olanzapine 5 mg 04/20/24 21:00 04/20/24 20:35 Olanzapine 5 Mg Tablet PO 5 mg BEDTIME HARESH Administration Pravastatin Sodium 20 mg 04/21/24 09:00 04/21/24 08:33 Pravastatin Sodium 20 Mg Tablet PO 20 mg DAILY HARESH Administration Trazodone HCl 50 mg 04/20/24 21:00 04/20/24 20:34 Trazodone Hcl 50 Mg Tablet PO 50 mg BEDTIME HARESH Administration Discontinued Medications Generic Name Dose Route Start Last Admin Trade Name Yajaira KENNY Reason Stop Dose Admin Mirtazapine 15 mg 04/20/24 20:22 04/20/24 20:35 Mirtazapine 15 Mg Tablet PO 04/20/24 20:23 15 mg ONCE ONE Administration Medical Decision Making Medical Decision Making [facility] Narrative: Patient is a 68 year old assigned female at with a history of ELIAN, PTSD, and HTN presenting to the emergency department today with depression and suicidal ideation. Patient's physical exam was as noted in the physical exam portion of this note. Patient's blood work was unremarkable. Patient's urine is pending. Patient's EKG is pending. I explained my physical exam findings as well as all test results to the patient. I answered all questions asked by the patient. Patient is currently awaiting CARE team evaluation. Patient's disposition will be determined after CARE team evaluation. 04/21/2024, 16:10 hours, Dr. Dawit Sparks's Note: End physician observation End physician observation on 04/21/2024, 16:10 hours: Patient presented to emergency department for evaluation of depression, anxiety and suicidal ideation. She also had insomnia with lack of sleep. Patient was evaluated by our psychiatric nurse practitioner, Ct Franks felt that the patient did not require acute admission. She was diagnosed the patient with major depressive episode, severe with psychotic features. Her recommendations were for the patient to follow-up with the memory Clinic at [facility], follow-up with the [facility] bridge clinic with Adia Zabala APRN. She also prescribed Lunesta 1 mg at night to help with her insomnia Observation care revealed the the patient does not meet medical necessity for hospitalization. Exam at time of disposition revealed the patient was awake, alert , oriented to person place, was not in any distress. ? I did discuss the discharge plan with the patient and the patient's verbalized understanding and agreement. Patient started observation time on 04/20/2024 at 14:58 hours Patient completed observation care on 04/21/2024 at 16:10 hours Total time spent in observation care was 25 hours and 12 minutes. Differential Diagnosis Differential Diagnoses: The differential diagnosis associated with the presentation includes SI Depression Admission/Observation Consideration of admission/observation: Escalation of care including admission/observation considered Patient's disposition will be determined after CARE team evaluation. Lab Data [facility] Lab Attestation statement: I reviewed the patient's lab results. My interpretation of these results are in the MDM Rationale portion of this note. 04/20/24 14:43 04/20/24 14:43 Labs: Lab Results 04/20/24 04/20/24 04/21/24 Range/Units 14:43 16:08 13:15 WBC 13.8 H (4.8-10.8) X10*3/uL RBC 4.55 (4.20-5.50) X10*6/uL Hgb 13.6 (12.0-16.0) g/dl Hct 40.9 (37.0-47.0) % MCV 89.9 (80.0-98.0) fL MCH 29.9 (27.0-33.0) pg MCHC 33.3 (31.0-35.0) g/dl RDW 13.5 (11.0-16.0) % Plt Count 309 D (160-400) X10*3/uL MPV 9.0 L (9.4-12.3) fL Immature Gran % (Auto) 0.7 H (0.0-0.4) % Neut % (Auto) 66.7 (45-73) % Lymph % (Auto) 23.6 (20-40) % [place] % (Auto) 8.1 (2-11) % Eos % (Auto) 0.5 (0-4) % Baso % (Auto) 0.4 (0-2) % Lymph # (Auto) 3.3 (1.2-4.9) X10*3/uL [place] # (Auto) 1.1 (0.1-1.2) X10*3/uL Eos # (Auto) 0.1 (0.0-0.4) X10*3/uL Baso # (Auto) 0.1 (0.0-0.2) X10*3/uL Abs Immat Gran (auto) 0.09 H (0.00-0.03) X10*3/uL Absolute Neuts (auto) 9.2 H (2.0-8.3) x10*3/uL Absolute Nucleated RBC 0.000 (0.0-0.012) X10*3/uL Nucleated RBC % (auto) 0.0 (0.0-0.2) /100WBC ESR 11 (0-20) MM/HR Sodium 141 (135-145) mmol/L Potassium 3.7 D (3.3-5.1) mmol/L Chloride 103 (96-108) mmol/L Carbon Dioxide 28 (22-29) mmol/L Anion Gap 14 (12-20) BUN 11 (9-16) mg/dL Creatinine 0.68 (0.5-1.4) mg/dL Estim Creat Clear Calc 74.8 Estimated GFR > 60 Random Glucose 102 (60-115) mg/dL Calcium 9.6 (8.4-10.2) mg/dL Total Bilirubin 0.5 (0.0-1.0) mg/dL AST 16 (5-31) U/L ALT 19 (0-31) U/L Alkaline Phosphatase 55 (39-117) U/L C-Reactive Protein 1.27 H (< or = 0.50) mg/dL Total Protein 7.4 (6.5-8.0) g/dL Albumin 4.2 (3.5-5.0) g/dL Urine Color Yellow Urine Appearance Clear Urine pH 7.0 (5.0-9.0) Ur Specific [place] 1.010 (1.005-1.025) Urine Protein Negative (Neg-Trace) mg/dL Urine Glucose (UA) Negative (Negative) mg/dL Urine Ketones Negative (Negative) mg/dL Urine Blood Trace H (Negative) Urine Nitrite Negative (Negative) Ur Leukocyte Esterase Negative (Negative) Urine RBC 3-5 H (0-2) /HPF Urine WBC 0-5 (0-5) /HPF Ur Squamous Epith Cells 0-2 (0-2) /HPF Urine Bacteria None Seen (None Seen) Hyaline Casts 0-2 (0-2) /LPF Urine Opiates Screen Not Detected (Not Detect) Ur Buprenorphine Scrn Not Detected (Not Detect) ng/mL Ur Oxycodone Screen Not Detected (Not Detect) ng/mL Urine Methadone Screen Not Detected (Not Detect) ng/mL Urine Fentanyl Screen Not Detected (Not Detect) Ur Barbiturates Screen Not Detected (Not Detect) Ur Phencyclidine Scrn Not Detected (Not Detect) Ur Amphetamines Screen Not Detected (Not Detect) U Benzodiazepines Scrn Not Detected (Not Detect) Urine Cocaine Screen Not Detected (Not Detect) U Marijuana (THC) Screen Not Detected (Not Detect) Ethyl Alcohol < 10 mg/dL Discharge Plan Discharge Clinical Impression: Suicidal ideation, Major depression with psychotic features, Insomnia Patient Disposition: Home, Self-Care Additional Instructions: Your evaluated by our psychiatry nurse practitioner, Suyapa Franks. At this time, she felt that you do not need to be hospitalized but you need further assessment from the [facility] memory/cognition clinic. Their phone number is . Please call these numbers to make a follow-up appointment. She did prescribe Lunesta 1 mg at night for 15 days to see if this helps with your sleep. Your also referred to the bridge clinic here at [facility]. Continue taking your other medications as prescribed. Follow-up with your doctor in 2 days. Please return to the emergency department if your symptoms get worse or if you develop any symptoms that are concerning to you. Prescriptions: New eszopiclone [Lunesta] 1 mg tablet 1 mg PO BEDTIME Qty: 15 0RF No Action pravastatin 20 mg tablet 20 mg PO DAILY buspirone 15 mg tablet 15 mg PO BID multivitamin Tablet 1 tab PO DAILY amlodipine [Norvasc] 5 mg tablet 5 mg PO DAILY trazodone 50 mg Tablet 50 mg PO BEDTIME 30 Days Qty: 30 0RF olanzapine 5 mg Tablet 5 mg PO BEDTIME 30 Days Qty: 30 1RF vilazodone [Viibryd] 40 mg Tablet 40 mg PO DAILY@1700 30 Days Qty: 30 1RF Interventions: [place]-Suicide Risk Severity Scale Last Done: 04/20/24 16:10 ED Discharge Assessment Last Done: 04/21/24 16:59 Discharge Date/Time: 04/21/24 17:01 Print Language: Ethiopian
[2024-04-20 15:00] LABS: Basophils Absolute Auto 0.1 X10*3/uL (0.0-0.2); Basophils Percent Auto 0.4 % (0-2); Eosinophils Absolute Auto 0.1 X10*3/uL (0.0-0.4); Eosinophils Percent Auto 0.5 % (0-4); Hematocrit 40.9 % (37.0-47.0); Hemoglobin 13.6 g/dl (12.0-16.0); Imm Gran Abs Auto 0.09 X10*3/uL (0.00-0.03); Imm Gran Pct Auto 0.7 % (0.0-0.4); Lymphocytes Absolute Auto 3.3 X10*3/uL (1.2-4.9); Lymphocytes Percent Auto 23.6 % (20-40); MANUAL DIFF FLAG NO; Mean Corpuscular HGB Conc 33.3 g/dl (31.0-35.0); Mean Corpuscular Hemoglobin 29.9 pg (27.0-33.0); Mean Corpuscular Volume 89.9 fL (80.0-98.0); Monocytes Absolute Auto 1.1 X10*3/uL (0.1-1.2); Monocytes Percent Auto 8.1 % (2-11); Neutrophils Absolute Auto 9.2 x10*3/uL (2.0-8.3); Neutrophils Percent Auto 66.7 % (45-73); Platelet Count 309 X10*3/uL (160-400); Red Blood Count 4.55 X10*6/uL (4.20-5.50); Red Cell Distribution Width 13.5 % (11.0-16.0); White Blood Count 13.8 X10*3/uL (4.8-10.8)
[2024-04-20 15:14] LABS: Alanine Aminotransferase 19 U/L (0-31); Albumin Level 4.2 g/dL (3.5-5.0); Alkaline Phosphatase 55 U/L (39-117); Anion Gap 14 (12-20); Aspartate Amino Transferase 16 U/L (5-31); Bilirubin Total 0.5 mg/dL (0.0-1.0); Blood Urea Nitrogen 11 mg/dL (9-16); Calcium 9.6 mg/dL (8.4-10.2); Carbon Dioxide 28 mmol/L (22-29); Chloride 103 mmol/L (96-108); Creatinine Clr Calc Pharmacy 74.8; Estimated Glomerular Filt Rate > 60; Ethanol < 10 mg/dL; Glucose Random 102 mg/dL (60-115); Potassium 3.7 mmol/L (3.3-5.1); Sodium 141 mmol/L (135-145); Total Protein 7.4 g/dL (6.5-8.0)
--- NOTE | 2024-04-20 16:06 | ECG_ITS ---
Test Reason : MED Retrieve Blood Pressure : / mmHG Vent. Rate : 087 BPM Atrial Rate : 087 BPM P-R Int : 154 ms QRS Dur : 084 ms QT Int : 406 ms P-R-T Axes : 073 029 017 degrees QTc Int : 488 ms Artifact in tracing Normal sinus rhythm Junctional ST depression, probably normal Borderline ECG When compared with ECG of 26-MAR-2024 07:45, Premature ventricular complexes are no longer Present T wave amplitude has increased in Lateral leads Referred By: Cee Driscoll Electronically Signed By:NICOLLE KLINE
--- NOTE | 2024-04-20 16:08 | PC.NURSE ---
Patient ambulating around BH pod, appears preoccupied with not getting enough sleep. She reports that she has been getting almost no sleep every night since being discharged from this facility not too long ago. She is requesting medication to help her sleep at this time.
[2024-04-20 16:12] VITALS: RESP 16
[2024-04-20 16:20] LABS: Appearance Urine Clear; Color Urine Yellow; Glucose Urine UA Negative (Negative); Leukocyte Esterase Urine Negative (Negative); Nitrite Urine Negative (Negative); UMIC TRIGGER UACC YES; Urine Blood Trace (Negative); Urine Ketones Negative (Negative); Urine Protein Negative (Neg-Trace)
[2024-04-20 16:22] LABS: Bacteria Urine None Seen (None Seen); Hyaline Casts Urine 0-2 /LPF (0-2); Squamous Epithelial Cell Urine 0-2 /HPF (0-2); WBC Urine 0-5 /HPF (0-5)
[2024-04-20 16:29] LABS: Amphetamine Screen Urine Not Detected (Not Detect); Barbiturates, Urine Not Detected (Not Detect); Benzodiazepines Screen Urine Not Detected (Not Detect); Buprenorphine Scr Not Detected (Not Detect); Cannabinoid Screen Urine Not Detected (Not Detect); Cocaine Screen Urine Not Detected (Not Detect); Fentanyl, urine Not Detected (Not Detect); Methadone Screen, Urine Not Detected (Not Detect); Opiate Screen Urine Not Detected (Not Detect); Oxycodone Screen Urine Not Detected (Not Detect); Phencyclidine Screen Urine Not Detected (Not Detect)
[2024-04-20] MEDS: traZODone HCL 50 MG TABLET PO (20:34)
[2024-04-20] MEDS: Mirtazapine 15 MG TABLET PO (20:35)
[2024-04-20] MEDS: OLANZapine 5 MG TABLET PO (20:35)
[2024-04-21 06:14] VITALS: BP 151/92; PULSE 84; TEMP 36.3; O2SAT 95
--- NOTE | 2024-04-21 06:19 | PC.NURSE ---
Patient slept intermittently three hours, medication compliant, no distress observed/reported, patient was assessed by care team, disposition is pending psych consult, BP 151/92. pulse 84, no behavior and safety concerns, will continue to monitor
--- NOTE | 2024-04-21 07:13 | PC.NURSE ---
Assumed care of patient at 0645. No signs of distress observed, breathing is even and unlabored. Patient is observed resting quietly in bed.
[2024-04-21] MEDS: amLODIPine Besylate 5 MG TABLET PO (08:33)
[2024-04-21] MEDS: Pravastatin Sodium 20 MG TABLET PO (08:33)
[2024-04-21] MEDS: Multivitamin TABLET 1 TAB PO (08:33)
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
[2024-04-21 13:35] LABS: C Reactive Protein 1.27 mg/dL (< or = 0.50)
[2024-04-21 14:36] LABS: Erythrocyte Sedimentation Rate 11 MM/HR (0-20)
[2024-04-21 16:55] VITALS: BP 158/101; PULSE 95; RESP 16; TEMP 36.6; O2SAT 95
[2024-04-21 16:59] VITALS: BP 158/101; PULSE 95; RESP 16; TEMP 36.6; O2SAT 95
[2024-04-27 15:13] LABS: Anti Nuclear Antibody Pattern Nuclear, Homogeneous; Anti Nuclear Antibody Screen POSITIVE (NEGATIVE); Anti Nuclear Antibody Titer 1:40 titer
== END 2024-04-21 17:01 | disposition home or self-care (01) ==
PROVIDERS: Social Worker; Emergency Provider Emergency Medicine Emergency Medical Services; PCP Student in an Organized Health Care Education/Training Program
DX: F32.3 Major depressive disorder, single episode, severe with psychotic features (principal); R45.851 Suicidal ideations; R94.31 Abnormal electrocardiogram [ECG] [EKG]; G47.00 Insomnia, unspecified; Z51.81 Encounter for therapeutic drug level monitoring; Z79.899 Other long term (current) drug therapy
CPT/HCPCS: 36415; 80053; 80307; 81001; 85025; 85652; 86038; 86039; 86140; 87086; 93005; 99285; S9485

== ENCOUNTER → 2024-04-20 14:44 | Outpatient (BNV) | payer MEDICARE, OTHER, SELFPAY | PROVIDERS: Emergency Provider Emergency Medicine; PCP Student in an Organized Health Care Education/Training Program; Visit Provider Social Worker | DX: F32.9 Major depressive disorder, single episode, unspecified (principal); F41.0 Panic disorder [episodic paroxysmal anxiety] | CPT/HCPCS: 99285 ==

== ENCOUNTER → 2024-04-20 16:06 | Outpatient (BNV) | payer MEDICARE, OTHER, SELFPAY | PROVIDERS: Emergency Provider Emergency Medicine; PCP Student in an Organized Health Care Education/Training Program; Visit Provider Internal Medicine | DX: Z01.818 Encounter for other preprocedural examination (principal) | CPT/HCPCS: 93010 ==

== ENCOUNTER 2024-04-22 13:05 | Emergency (ER) | payer MEDICARE, OTHER, SELFPAY ==
--- NOTE | ~2024-04-22 | XR_ITS ---
EXAMINATION: XR KNEE, LEFT CLINICAL INFORMATION: Knee pain after knee replacement COMPARISON: None available. TECHNIQUE: 5 views of the left knee. FINDINGS: Patient is status post left total knee replacement. Bones are normal anatomic alignment with no acute periprosthetic fracture or loosening. No bony destructive lesion or periosteal reaction. Small knee joint effusion. Vascular calcification XR/XR knee LT 3V IMPRESSION: Status post left total knee replacement. Small knee joint effusion.
[2024-04-22 13:22] VITALS: BP 149/85; PULSE 103; RESP 16; TEMP 36.7; O2SAT 97; BMI 23.8
--- NOTE | 2024-04-22 13:24 | ED.LOWEXIN ---
HPI - Extremity Injury (Lower) General Chief Complaint: Extremity Injury, Lower Stated Complaint: l knee infection Time Seen by Provider: 04/22/24 16:18 Source: patient Mode of arrival: ambulatory Limitations: no limitations History of Present Illness ED Provider: Dr. Dawit Sparks HPI Narrative: 68-year-old female with a history of hypertension, hyperlipidemia, depression, anxiety, PTSD, left total knee replacement 01/[address] Cortez who presents emergency department for evaluation of 1 week of left knee swelling and left leg cramping with increased swelling and warmth of the left knee over the last several days. Patient denied fever. She states she always has intermittent chills and sweats. She denied fatigue, nausea, vomiting or weakness. Patient had routine blood work yesterday and was told that her white blood cell count was elevated. She was concerned that she might have an infection of her left knee so she came to the emergency department for evaluation. Patient does not recount any injury to the left knee. Related Data Home Medications ?Medication ?Instructions ?Recorded ?Confirmed pravastatin 20 mg tablet 20 mg PO DAILY 06/29/23 04/20/24 amlodipine 5 mg tablet (Norvasc) 5 mg PO DAILY 01/11/24 04/20/24 multivitamin 1 tab PO DAILY 01/11/24 04/20/24 buspirone 15 mg tablet 15 mg PO BID 04/20/24 04/20/24 Previous Rx's ?Medication ?Instructions ?Recorded olanzapine 5 mg tablet 5 mg PO BEDTIME 30 days #30 tabs 04/16/24 trazodone 50 mg tablet 50 mg PO BEDTIME 30 days #30 tabs 04/16/24 vilazodone 40 mg tablet (Viibryd) 40 mg PO DAILY@1700 30 days #30 04/16/24 tabs eszopiclone 1 mg tablet (Lunesta) 1 mg PO BEDTIME #15 tabs 04/21/24 Allergies Allergy/AdvReac Type Severity Reaction Status Date / Time No Known Allergies Allergy Verified 04/22/24 13:24 [No Known Allergies*] Review of Systems Review of Systems: Yes all other systems are reviewed and are negative [facility] Past Medical History [facility] Narrative: Social history: She denies tobacco, alcohol and drug use. Medical History Arthritis Panic attacks Osteoporosis PTSD (post-traumatic stress disorder) ELIAN (generalized anxiety disorder) PAC (premature atrial contraction) History of anxiety Dyslipidemia Osteoarthritis (arthritis due to wear and tear of joints) Diverticulitis Essential hypertension Hyperkalemia Depression Surgical History Hx of tonsillectomy Hx of tubal ligation History of total right knee replacement Hx of colonoscopy History of carpal tunnel release Family History Family History Mother Dementia Father No problems noted. Social History Social History Household Members: Spouse Housing: House Are you a primary senior care provider to a significant other at home: No Do you presently have visiting nurse or other home services: No Unable to assess alcohol history related to: Unable to respond Alcohol intake: never Patient Tobacco Use Status: Never used Tobacco e-Cigarette/Vaping Use: Never Used Second Hand Smoke Exposure: No Substance Use Type: Marijuana Advance Directives: No Advance Directives Information Provided: No Advance Directives Date on File: 07/31/20 Do you have a plan to hurt others: No Plan service: No Current occupational status: retired Current occupation: Right Handed Sexual orientation: Straight/Heterosexual Cognitive needs: No Hearing needs: No Vision needs: No Physical Exam Vital Signs: Vital Signs: Last Vital Signs Temp 98.1 F 04/22/24 13:22 Pulse 103 H 04/22/24 13:22 Resp 16 04/22/24 13:22 BP 149/85 H 04/22/24 13:22 Pulse Ox 97 04/22/24 13:22 O2 Del Method Room Air 04/22/24 13:22 BMI result Body Mass Index 23.8 Vital signs were normal except for an elevated blood pressure of 149/85 and an elevated heart rate of 103. Exam: General: Awake, alert in no distress Head: Normocephalic, atraumatic Extremities: Patient does have a small joint effusion to her left knee with increased warmth over the left knee compared to the right knee, no significant erythema of the skin, extremities neurovascular intact Psych: Pleasant, cooperative Course Course Course Narrative: This is a Rapid Medical Examination (RME) performed by Min Diaz PA-C in triage. Full HPI, ROS, assessment and treatment plan per primary provider in the Main ED. 68 yo female hx of ELIAN, HTN, PTSD, mood disorder, OCD, prediabetes here for eval of left knee pain/swelling and warmth. reports associated cramping of the LE. hx of left knee replacement in january 2024. seen for blood work yesterday, noted to have elevated WBC. no injury or trauma. abrasion to left knee. minmal swelling noted. FROM intact to left knee. Plan: labs, xr ordered Medical Decision Making Medical Decision Making MDM Narrative: 68-year-old female with a history of hypertension, hyperlipidemia, depression, anxiety, PTSD, left total knee replacement 01/[address] Cortez who presents emergency department for evaluation of 1 week of left knee swelling , left leg cramping with increased swelling and warmth of the left knee over the last several days. Patient had no significant systemic symptoms. Vital signs revealed an elevated heart rate and elevated blood pressure. The patient's left knee does have a joint effusion with increased warmth over the left knee compared to the right with no overlying erythema Differential diagnosis: ?Includes but is not limited to to septic arthritis, inflammatory arthritis, cellulitis Following evaluation was ordered: CBC, CMP, magnesium, ESR, CRP, three-view left knee x-ray Course: 18:10 My impression patient's laboratory evaluation as follows: [place] [address] with a normal differential 70 neutrophils and 20 lymphocytes. Elevated CO2 of 30. Elevated glucose 122. Elevated ALT of 42. CRP was only slightly elevated at 0.72 and ESR pending. I did discuss the patient's presentation with the covering orthopedic physician clinical laboratory assistant, Cliff Clark. Given the patient's presentation physical findings and laboratory findings, we both felt that this was less likely to be an acute infection and more likely to be an inflammatory process. Recommendation was to not start antibiotics at this time and to treat this like an inflammatory process with ice and anti-inflammatory medications. Patient was to follow-up with Dr. Cortez on 03/25/2024 for evaluation and if needed aspiration in the office. Unfortunately the patient could not wait and left the emergency department prior to me being able to get back into the room. I did call on the phone and discuss the treatment plan with her. Patient was advised to contact Dr. Cortez's office on Wednesday morning follow-up. Patient was take ibuprofen 40 mg 3 times a day as needed for pain, she is to keep her leg elevated and ice for 15 minutes 4 to 6 times a day. Patient verbalized understanding of this discharge plan. Lab Data MDM Lab Attestation statement: I reviewed the patient's lab results. 04/22/24 13:45 04/22/24 13:45 Labs: Lab Results 04/22/24 Range/Units 13:45 WBC 14.6 H (4.8-10.8) X10*3/uL RBC 4.64 (4.20-5.50) X10*6/uL Hgb 14.0 (12.0-16.0) g/dl Hct 41.6 (37.0-47.0) % MCV 89.7 (80.0-98.0) fL MCH 30.2 (27.0-33.0) pg MCHC 33.7 (31.0-35.0) g/dl RDW 13.3 (11.0-16.0) % Plt Count 291 (160-400) X10*3/uL MPV 8.9 L (9.4-12.3) fL Immature Gran % (Auto) 0.5 H (0.0-0.4) % Neut % (Auto) 70.7 (45-73) % Lymph % (Auto) 20.2 (20-40) % [place] % (Auto) 7.6 (2-11) % Eos % (Auto) 0.7 (0-4) % Baso % (Auto) 0.3 (0-2) % Lymph # (Auto) 2.9 (1.2-4.9) X10*3/uL [place] # (Auto) 1.1 (0.1-1.2) X10*3/uL Eos # (Auto) 0.1 (0.0-0.4) X10*3/uL Baso # (Auto) 0.0 (0.0-0.2) X10*3/uL Abs Immat Gran (auto) 0.08 H (0.00-0.03) X10*3/uL Absolute Neuts (auto) 10.3 H (2.0-8.3) x10*3/uL Absolute Nucleated RBC 0.000 (0.0-0.012) X10*3/uL Nucleated RBC % (auto) 0.0 (0.0-0.2) /100WBC Sodium 141 (135-145) mmol/L Potassium 4.3 (3.3-5.1) mmol/L Chloride 104 (96-108) mmol/L Carbon Dioxide 30 H (22-29) mmol/L Anion Gap 11 L (12-20) BUN 13 (9-16) mg/dL Creatinine 0.78 (0.5-1.4) mg/dL Estim Creat Clear Calc 65.2 Estimated GFR > 60 Random Glucose 122 H (60-115) mg/dL Calcium 9.7 (8.4-10.2) mg/dL Magnesium 2.2 (1.6-2.6) mg/dL Total Bilirubin 0.5 (0.0-1.0) mg/dL AST 24 (5-31) U/L ALT 42 H (0-31) U/L Alkaline Phosphatase 55 (39-117) U/L C-Reactive Protein 0.72 H (< or = 0.50) mg/dL Total Protein 7.3 (6.5-8.0) g/dL Albumin 4.2 (3.5-5.0) g/dL Independent Interpretation I performed an independent interpretation of an: Plain X-Ray Radiology Impression Discussion of test interpretation with radiology: I have reviewed the radiologist's reading. Radiologist Impression: XR knee LT 3V IMPRESSION: Status post left total knee replacement. Small knee joint effusion. Dictated By: Deven White MD Discharge Plan Discharge Clinical Impression: Acute pain of left knee, Effusion of knee joint, left, History of total left knee replacement Patient Disposition: Home, Self-Care Additional Instructions: Patient was unable to wait for discharge instructions but I did call the patient on the phone and discuss discharge instructions with her. The patient verbalized understanding and also verbalized the need to follow-up with Dr. Cortez on 04/24/2024 Prescriptions: No Action pravastatin 20 mg tablet 20 mg PO DAILY buspirone 15 mg tablet 15 mg PO BID eszopiclone [Lunesta] 1 mg tablet 1 mg PO BEDTIME Qty: 15 0RF multivitamin Tablet 1 tab PO DAILY amlodipine [Norvasc] 5 mg tablet 5 mg PO DAILY trazodone 50 mg Tablet 50 mg PO BEDTIME 30 Days Qty: 30 0RF olanzapine 5 mg Tablet 5 mg PO BEDTIME 30 Days Qty: 30 1RF vilazodone [Viibryd] 40 mg Tablet 40 mg PO DAILY@1700 30 Days Qty: 30 1RF Discharge Date/Time: 04/22/24 17:43 Print Language: Angolan
[2024-04-22 13:51] LABS: MANUAL DIFF FLAG NO
[2024-04-22 13:53] LABS: Basophils Percent Auto 0.3 % (0-2); Eosinophils Absolute Auto 0.1 X10*3/uL (0.0-0.4); Eosinophils Percent Auto 0.7 % (0-4); Hematocrit 41.6 % (37.0-47.0); Imm Gran Abs Auto 0.08 X10*3/uL (0.00-0.03); Imm Gran Pct Auto 0.5 % (0.0-0.4); Lymphocytes Absolute Auto 2.9 X10*3/uL (1.2-4.9); Lymphocytes Percent Auto 20.2 % (20-40); Mean Corpuscular HGB Conc 33.7 g/dl (31.0-35.0); Mean Corpuscular Hemoglobin 30.2 pg (27.0-33.0); Mean Corpuscular Volume 89.7 fL (80.0-98.0); Mean Platelet Volume 8.9 fL (9.4-12.3); Monocytes Absolute Auto 1.1 X10*3/uL (0.1-1.2); Monocytes Percent Auto 7.6 % (2-11); Neutrophils Absolute Auto 10.3 x10*3/uL (2.0-8.3); Neutrophils Percent Auto 70.7 % (45-73); Platelet Count 291 X10*3/uL (160-400); Red Blood Count 4.64 X10*6/uL (4.20-5.50); Red Cell Distribution Width 13.3 % (11.0-16.0); White Blood Count 14.6 X10*3/uL (4.8-10.8)
[2024-04-22 14:08] LABS: Alanine Aminotransferase 42 U/L (0-31); Albumin Level 4.2 g/dL (3.5-5.0); Alkaline Phosphatase 55 U/L (39-117); Anion Gap 11 (12-20); Aspartate Amino Transferase 24 U/L (5-31); Bilirubin Total 0.5 mg/dL (0.0-1.0); Blood Urea Nitrogen 13 mg/dL (9-16); Calcium 9.7 mg/dL (8.4-10.2); Carbon Dioxide 30 mmol/L (22-29); Chloride 104 mmol/L (96-108); Creatinine Clr Calc Pharmacy 65.2; Estimated Glomerular Filt Rate > 60; Glucose Random 122 mg/dL (60-115); Magnesium 2.2 mg/dL (1.6-2.6); Potassium 4.3 mmol/L (3.3-5.1); Sodium 141 mmol/L (135-145); Total Protein 7.3 g/dL (6.5-8.0)
--- NOTE | 2024-04-22 17:39 | PC.NURSE ---
PT REQUESTING TO LEAVE, SHE STATES SHE HAS WAITED TO LONG AND WANTS TO LEAVE, PROVIDER IS AWARE
[2024-04-22 17:51] LABS: C Reactive Protein 0.72 mg/dL (< or = 0.50)
[2024-04-22 18:29] LABS: Erythrocyte Sedimentation Rate 7 MM/HR (0-20)
== END 2024-04-22 17:43 | disposition home or self-care (01) ==
PROVIDERS: Physician Assistant Medical; Emergency Provider Emergency Medicine Emergency Medical Services; PCP Student in an Organized Health Care Education/Training Program
DX: M25.562 Pain in left knee (principal); M25.462 Effusion, left knee; Z96.652 Presence of left artificial knee joint
CPT/HCPCS: 36415; 73562; 80053; 83735; 85025; 85652; 86140; 99281

== ENCOUNTER 2024-04-24 11:24 | Outpatient (AMB) | payer MEDICARE, OTHER, SELFPAY ==
--- NOTE | 2024-04-24 11:40 | MHC.OFFVIS ---
Vital Signs 04/24/24 11:41 Height 5 ft 7 in Weight 152 lb BMI 23.8 Intake Visit Reasons: OV- LT TKA 01/19/24 NE follow up Intake Note: Zulma a 68 year old female who presents today for a follow up s/p left TKA on 01/19/24 with NE. Allergies No Known Allergies [No Known Allergies*] Allergy (Verified 04/22/24 13:24) HPI HPI OV- LT TKA 01/19/24 NE follow up: Details: 68-year-old female who returns to the office today for a follow-up of left TKA, 01/19/[address] Cortez. She states she mild warmth over the area however she denies any pain, swelling or itchiness. She is doing well overall and has no concerns today. [facility] Medical History Arthritis Panic attacks Osteoporosis PTSD (post-traumatic stress disorder) ELIAN (generalized anxiety disorder) PAC (premature atrial contraction) History of anxiety Dyslipidemia Osteoarthritis (arthritis due to wear and tear of joints) Diverticulitis Essential hypertension Hyperkalemia Depression Surgical History Hx of tonsillectomy Hx of tubal ligation History of total right knee replacement Hx of colonoscopy History of carpal tunnel release Family History Mother Dementia Father No problems noted. Social History Household Members: Spouse Housing: House Are you a primary resident care aide to a significant other at home: No Do you presently have visiting nurse or other home services: No Unable to assess alcohol history related to: Unable to respond Alcohol intake: never Patient Tobacco Use Status: Never used Tobacco e-Cigarette/Vaping Use: Never Used Second Hand Smoke Exposure: No Substance Use Type: Marijuana Advance Directives Date on File: 07/31/20 service: No Current occupational status: retired Current occupation: Right Handed Sexual orientation: Straight/Heterosexual Cognitive needs: No Hearing needs: No Vision needs: No Female Reproductive History Menstrual Age of Menarche: 8 Review of Systems Const All systems reviewed & are unremarkable except as noted in HPI and below Physical Exam Vital Signs: BMI result Body Mass Index 23.8 Extrem Other: Left knee: Surgical scar is well healed. No sign of swelling, redness or tenderness. Full ROM. She has good quad strength. Calf supple, nontender. NVI. Assessment & Plan Assessment & Plan (1) Status post total left knee replacement: Code(s): Z96.652 - Presence of left artificial knee joint Category: Surgical Plan Reassurance was given to the patient and her that no sign of infection at this time. She will continue to increase activities as tolerated and if symptoms persist or worsen, patient will contact the office, otherwise follow-up as needed. Patient Instructions: Scribed for Cliff Clark PA-C, by Jay Gagnon biomedical engineering supervisor, on 04/24/2024 at 11:45 PM EST.? I, Cliff Clark PA-C, have personally reviewed and agree with the information entered by the scribe. Coding Level of Care Code Global (32417) Diagnoses Status post total left knee replacement Z96.652
[2024-04-24 11:41] VITALS: BMI 23.8
== END 2024-04-24 12:02 | disposition home or self-care (01) ==
PROVIDERS: PCP Student in an Organized Health Care Education/Training Program; Visit Provider Physician Assistant
DX: Z47.1 Aftercare following joint replacement surgery (principal); Z96.652 Presence of left artificial knee joint
CPT/HCPCS: 99024

== ENCOUNTER → 2024-04-24 11:24 | Outpatient (BNVA) | payer MEDICARE, OTHER, SELFPAY | PROVIDERS: PCP Student in an Organized Health Care Education/Training Program; Visit Provider Physician Assistant | DX: Z47.1 Aftercare following joint replacement surgery (principal); Z96.652 Presence of left artificial knee joint | CPT/HCPCS: 99212 ==

== ENCOUNTER 2024-04-24 16:21 | Inpatient (IN) | payer MEDICARE, OTHER, SELFPAY ==
--- NOTE | 2024-04-24 | ECG_ITS ---
Test Reason : medical clearence Blood Pressure : / mmHG Vent. Rate : 088 BPM Atrial Rate : 088 BPM P-R Int : 144 ms QRS Dur : 078 ms QT Int : 374 ms P-R-T Axes : -26 003 -02 degrees QTc Int : 452 ms Normal sinus rhythm Nonspecific ST abnormality Abnormal ECG When compared with ECG of 20-APR-2024 16:14, No significant change was found Referred By: Generic ED Physician Electronically Signed By:David Feng
[2024-04-24 16:30] VITALS: BP 164/98; PULSE 94; RESP 18; TEMP 37.2; O2SAT 95; BMI 23.4
[2024-04-24 17:04] LABS: MANUAL DIFF FLAG NO
[2024-04-24 17:06] LABS: Basophils Absolute Auto 0.1 X10*3/uL (0.0-0.2); Basophils Percent Auto 0.5 % (0-2); Eosinophils Absolute Auto 0.1 X10*3/uL (0.0-0.4); Hematocrit 42.9 % (37.0-47.0); Hemoglobin 14.4 g/dl (12.0-16.0); Imm Gran Pct Auto 0.7 % (0.0-0.4); Lymphocytes Percent Auto 21.1 % (20-40); Mean Corpuscular HGB Conc 33.6 g/dl (31.0-35.0); Mean Corpuscular Hemoglobin 30.3 pg (27.0-33.0); Mean Corpuscular Volume 90.3 fL (80.0-98.0); Mean Platelet Volume 9.1 fL (9.4-12.3); Monocytes Absolute Auto 1.2 X10*3/uL (0.1-1.2); Monocytes Percent Auto 8.3 % (2-11); Neutrophils Absolute Auto 9.9 x10*3/uL (2.0-8.3); Neutrophils Percent Auto 68.4 % (45-73); Platelet Count 295 X10*3/uL (160-400); Red Blood Count 4.75 X10*6/uL (4.20-5.50); Red Cell Distribution Width 13.2 % (11.0-16.0); White Blood Count 14.4 X10*3/uL (4.8-10.8)
[2024-04-24 17:19] LABS: Alanine Aminotransferase 30 U/L (0-31); Albumin Level 4.2 g/dL (3.5-5.0); Alkaline Phosphatase 58 U/L (39-117); Anion Gap 13 (12-20); Aspartate Amino Transferase 17 U/L (5-31); Bilirubin Total 0.6 mg/dL (0.0-1.0); Blood Urea Nitrogen 14 mg/dL (9-16); Calcium 9.3 mg/dL (8.4-10.2); Carbon Dioxide 29 mmol/L (22-29); Chloride 103 mmol/L (96-108); Creatinine Clr Calc Pharmacy 64.4; Estimated Glomerular Filt Rate > 60; Glucose Random 97 mg/dL (60-115); Sodium 141 mmol/L (135-145); Total Protein 7.6 g/dL (6.5-8.0)
[2024-04-24 17:22] LABS: Acetaminophen LAB < 3 mcg/mL (<30); Salicylate < 5.0 mg/dL (15-30)
[2024-04-24 17:26] LABS: COVID-19 Test Negative (Negative); IDNOW Serial# 08D9AD1C
[2024-04-24 17:51] LABS: Appearance Urine Clear; Color Urine Dark Yellow; Glucose Urine UA Negative (Negative); Leukocyte Esterase Urine Trace (Negative); Nitrite Urine Negative (Negative); UMIC TRIGGER UACC YES; Urine Blood Negative (Negative); Urine Ketones Trace mg/dL (Negative); Urine Protein 30 (1+) mg/dL (Neg-Trace)
[2024-04-24 17:58] LABS: Bacteria Urine None Seen (None Seen); Hyaline Casts Urine 0-2 /LPF (0-2); Squamous Epithelial Cell Urine 0-2 /HPF (0-2); WBC Urine 0-5 /HPF (0-5)
[2024-04-24 17:59] LABS: RBC Urine 0-2 /HPF (0-2)
[2024-04-24 18:07] LABS: Amphetamine Screen Urine Not Detected (Not Detect); Barbiturates, Urine Not Detected (Not Detect); Benzodiazepines Screen Urine Not Detected (Not Detect); Buprenorphine Scr Not Detected (Not Detect); Cannabinoid Screen Urine POSITIVE (Not Detect); Cocaine Screen Urine Not Detected (Not Detect); Fentanyl, urine Not Detected (Not Detect); Methadone Screen, Urine Not Detected (Not Detect); Opiate Screen Urine Not Detected (Not Detect); Oxycodone Screen Urine Not Detected (Not Detect); Phencyclidine Screen Urine Not Detected (Not Detect)
--- NOTE | 2024-04-24 18:26 | PC.NURSE ---
Pt. stating that she would like to go home, stating that she is scared and wants to be with her . Called to let him know that she would like to go home. would like her to stay, because today and yesterday have been by far her worst days. states that she's deeply depressed and hopeless.
[2024-04-24 18:35] VITALS: BP 147/90; PULSE 78; RESP 16; TEMP 36.8; O2SAT 97
--- NOTE | 2024-04-24 18:46 | PC.NURSE ---
Spoke with pt.'s . expresses at length that his has severely declined since her medications were changed to much. States that when she was on only Buspar and Mirtazapine, she was much better off. Also expresses frustration that hospitals don't talk to each other in terms of their charting systems. States that the care she receives at [facility], [place], etc. all contradicts each other and he feels that this is adding to her decline.
--- NOTE | 2024-04-24 19:27 | PC.NURSE ---
This RN assumed pt care @ 1900. Pt at Nurse's station requesting med x3. Pt requesting meds from tech. When this RN attempted to administer med pt refused stating she would like in 30 mins to an hr. Plan of care ongoing.
--- NOTE | 2024-04-24 19:45 | ED.PSYCH ---
HPI - Psych General Chief Complaint: Behavioral Concerns Stated Complaint: crisis Time Seen by Provider: 04/24/24 18:10 Source: patient Mode of arrival: ambulatory Limitations: no limitations History of Present Illness ED Provider: Dr. Katalina Vuong HPI Narrative: Patient comes to the emergency room complaining of insomnia and stating that ?there is something not right with my head . Patient denies SI or HI. However, patient told the triage nurse ?I would be better off not being here . Patient denies hurting herself in any way prior to arrival. Of note, patient was recently discharged from inpatient service on April 16, then again seen by the psychiatric team in the ED , 3 days ago. Otherwise, patient has no complaints. Patient states that she was recently taken of BuSpar and amitriptyline, states that she was doing well on them. Related Data Home Medications ?Medication ?Instructions ?Recorded ?Confirmed pravastatin 20 mg tablet 20 mg PO DAILY 06/29/23 04/20/24 amlodipine 5 mg tablet (Norvasc) 5 mg PO DAILY 01/11/24 04/20/24 multivitamin 1 tab PO DAILY 01/11/24 04/20/24 buspirone 15 mg tablet 15 mg PO BID 04/20/24 04/20/24 Previous Rx's ?Medication ?Instructions ?Recorded olanzapine 5 mg tablet 5 mg PO BEDTIME 30 days #30 tabs 04/16/24 trazodone 50 mg tablet 50 mg PO BEDTIME 30 days #30 tabs 04/16/24 vilazodone 40 mg tablet (Viibryd) 40 mg PO DAILY@1700 30 days #30 04/16/24 tabs eszopiclone 1 mg tablet (Lunesta) 1 mg PO BEDTIME #15 tabs 04/21/24 Allergies Allergy/AdvReac Type Severity Reaction Status Date / Time No Known Allergies Allergy Verified 04/24/24 16:36 [No Known Allergies*] Review of Systems Review of Systems: Constitutional : No Weight loss, No Fever, No Chills, No Night Sweats, No Fatigue, No Malaise ENT/Mouth : No Hearing loss, No Ear Pain, No Nasal Congestion, No Sinus Pain, No Hoarseness, No sore throat, No Rhinorrhea, No Swallowing Difficulty Eyes: No Eye Pain, No Swelling, No Redness, No Foreign Body, No Discharge, No Vision Changes Cardiovascular : No Chest Pain, No SOB, No Dyspnea on Exertion, No Orthopnea, No Edema, No Palpitations Respiratory : No Cough, No Sputum, No Wheezing, No Smoke Exposure, No Dyspnea Gastrointestinal : No Nausea, No Vomiting, No Diarrhea, No Constipation, No abdominal Pain, No Hematochezia, No Melena Genitourinary : no irregular bleeding, No Dysuria, No Urinary Frequency, No Hematuria, No Urinary Incontinence, No Urgency, No Flank Pain, No Urinary Flow Changes, No Hesitancy Musculoskeletal : No joint pain, No Myalgias, No Joint Swelling Skin : No Skin Lesions, No rash Neuro : No Weakness, No Numbness, No Paresthesias, No Loss of Consciousness, No Dizziness, No Headache Psych : No Anxiety/Panic, complaining of depression, no SI or HI, complaining of chronic insomnia Heme/Lymph: No Bruising, No Bleeding,No Lymphadenopathy Endocrine : No Polyuria, No Polydipsia, No Temperature Intolerance PMFSH Past Medical History Medical History Arthritis Panic attacks Osteoporosis PTSD (post-traumatic stress disorder) ELIAN (generalized anxiety disorder) PAC (premature atrial contraction) History of anxiety Dyslipidemia Osteoarthritis (arthritis due to wear and tear of joints) Diverticulitis Essential hypertension Hyperkalemia Depression Surgical History Hx of tonsillectomy Hx of tubal ligation History of total right knee replacement Hx of colonoscopy History of carpal tunnel release Family History Family History Mother Dementia Father No problems noted. Social History Social History Household Members: Spouse Housing: House Are you a primary child care associate teacher to a significant other at home: No Do you presently have visiting nurse or other home services: No Unable to assess alcohol history related to: Unable to respond Alcohol intake: never Patient Tobacco Use Status: Never used Tobacco e-Cigarette/Vaping Use: Never Used Second Hand Smoke Exposure: No Substance Use Type: Marijuana Advance Directives: No Advance Directives Information Provided: No Advance Directives Date on File: 07/31/20 Do you have a plan to hurt others: No Plan service: No Current occupational status: retired Current occupation: Right Handed Sexual orientation: Straight/Heterosexual Cognitive needs: No Hearing needs: No Vision needs: No Physical Exam Vital Signs: Vital Signs: Last Vital Signs Temp 98.2 F 04/24/24 18:35 Pulse 78 04/24/24 18:35 Resp 16 04/24/24 18:35 BP 147/90 H 04/24/24 18:35 Pulse Ox 97 04/24/24 18:35 O2 Del Method Room Air 04/24/24 18:35 BMI result Body Mass Index 23.4 Const: Other: Appearance: Alert. Oriented X3. No acute distress. Eyes: Pupils equal, round and reactive to light. ENT: Pharynx normal. Neck: Normal inspection. Neck supple. No lymph nodes noted. No crepitus CVS: Normal heart rate and rhythm. Pulses normal. Normal S1 and S2 Respiratory: No respiratory distress. Breath sounds normal. No Wheezing. No rales Abdomen: Soft and nontender. No rigidity. No distention. Skin: Skin warm and dry. Normal skin color. Normal skin turgor. Extremities: No lower extremity edema. No Lacerations. No Rash Neuro: Oriented X 3. No motor deficit. No sensory deficit. Moving all extremities. No slurred speech. CN 2 through 12 grossly intact Psych: calm, cooperative, flat affect Medical Decision Making Medical Decision Making MDM Narrative: -my interpretation of labs, at baseline hematology and chemistry, urinalysis has trace leukocyte esterase, no previous growth on previous urinalysis with trace leukocyte esterase. No bacteria seen, no white blood cells in the urine. No signs of UTI. Antibiotics not indicated at this time. -care team consult pending -patient is here voluntarily, no SI or HI, no indication for Section 12 Differential Diagnosis Differential Diagnoses: The differential diagnosis associated with the presentation includes (Anxiety, depression) Admission/Observation Consideration of admission/observation: Escalation of care including admission/observation considered (Patient is under physician observation, waiting for the care team to determine disposition) Lab Data MDM Lab Attestation statement: I reviewed the patient's lab results. 04/24/24 16:52 04/24/24 16:52 Labs: Lab Results 04/24/24 04/24/24 Range/Units 16:52 17:36 WBC 14.4 H (4.8-10.8) X10*3/uL RBC 4.75 (4.20-5.50) X10*6/uL Hgb 14.4 (12.0-16.0) g/dl Hct 42.9 (37.0-47.0) % MCV 90.3 (80.0-98.0) fL MCH 30.3 (27.0-33.0) pg MCHC 33.6 (31.0-35.0) g/dl RDW 13.2 (11.0-16.0) % Plt Count 295 (160-400) X10*3/uL MPV 9.1 L (9.4-12.3) fL Immature Gran % (Auto) 0.7 H (0.0-0.4) % Neut % (Auto) 68.4 (45-73) % Lymph % (Auto) 21.1 (20-40) % [place] % (Auto) 8.3 (2-11) % Eos % (Auto) 1.0 (0-4) % Baso % (Auto) 0.5 (0-2) % Lymph # (Auto) 3.0 (1.2-4.9) X10*3/uL [place] # (Auto) 1.2 (0.1-1.2) X10*3/uL Eos # (Auto) 0.1 (0.0-0.4) X10*3/uL Baso # (Auto) 0.1 (0.0-0.2) X10*3/uL Abs Immat Gran (auto) 0.10 H (0.00-0.03) X10*3/uL Absolute Neuts (auto) 9.9 H (2.0-8.3) x10*3/uL Absolute Nucleated RBC 0.000 (0.0-0.012) X10*3/uL Nucleated RBC % (auto) 0.0 (0.0-0.2) /100WBC Sodium 141 (135-145) mmol/L Potassium 4.0 (3.3-5.1) mmol/L Chloride 103 (96-108) mmol/L Carbon Dioxide 29 (22-29) mmol/L Anion Gap 13 (12-20) BUN 14 (9-16) mg/dL Creatinine 0.76 (0.5-1.4) mg/dL Estim Creat Clear Calc 64.4 Estimated GFR > 60 Random Glucose 97 (60-115) mg/dL Calcium 9.3 (8.4-10.2) mg/dL Total Bilirubin 0.6 (0.0-1.0) mg/dL AST 17 (5-31) U/L ALT 30 (0-31) U/L Alkaline Phosphatase 58 (39-117) U/L Total Protein 7.6 (6.5-8.0) g/dL Albumin 4.2 (3.5-5.0) g/dL Urine Color Dark Yellow Urine Appearance Clear Urine pH 7.0 (5.0-9.0) Ur Specific [place] 1.020 (1.005-1.025) Urine Protein 30 (1+) H (Neg-Trace) mg/dL Urine Glucose (UA) Negative (Negative) mg/dL Urine Ketones Trace (Negative) mg/dL Urine Blood Negative (Negative) Urine Nitrite Negative (Negative) Ur Leukocyte Esterase Trace H (Negative) Urine RBC 0-2 (0-2) /HPF Urine WBC 0-5 (0-5) /HPF Ur Squamous Epith Cells 0-2 (0-2) /HPF Urine Bacteria None Seen (None Seen) Hyaline Casts 0-2 (0-2) /LPF Salicylates < 5.0 L (15-30) mg/dL Urine Opiates Screen Not Detected (Not Detect) Ur Buprenorphine Scrn Not Detected (Not Detect) ng/mL Ur Oxycodone Screen Not Detected (Not Detect) ng/mL Urine Methadone Screen Not Detected (Not Detect) ng/mL Urine Fentanyl Screen Not Detected (Not Detect) Acetaminophen < 3 (<30) mcg/mL Ur Barbiturates Screen Not Detected (Not Detect) Ur Phencyclidine Scrn Not Detected (Not Detect) Ur Amphetamines Screen Not Detected (Not Detect) U Benzodiazepines Scrn Not Detected (Not Detect) Urine Cocaine Screen Not Detected (Not Detect) U Marijuana (THC) Screen POSITIVE H (Not Detect) COVID-19 (JANET) Negative (Negative) COVID-19 Clin Com See Note Discharge Plan Discharge Clinical Impression: Chronic insomnia Patient Disposition: Still a Patient Prescriptions: No Action pravastatin 20 mg tablet 20 mg PO DAILY buspirone 15 mg tablet 15 mg PO BID eszopiclone [Lunesta] 1 mg tablet 1 mg PO BEDTIME Qty: 15 0RF multivitamin Tablet 1 tab PO DAILY amlodipine [Norvasc] 5 mg tablet 5 mg PO DAILY trazodone 50 mg Tablet 50 mg PO BEDTIME 30 Days Qty: 30 0RF olanzapine 5 mg Tablet 5 mg PO BEDTIME 30 Days Qty: 30 1RF vilazodone [Viibryd] 40 mg Tablet 40 mg PO DAILY@1700 30 Days Qty: 30 1RF Print Language: Bulgarian
[2024-04-24 19:55] LABS: Ethanol < 10 mg/dL
[2024-04-24] MEDS: traZODone HCL 100 MG TABLET PO (20:02)
--- NOTE | 2024-04-24 20:05 | PC.NURSE ---
Pt requested and given med. Plan of care ongoing.
--- NOTE | 2024-04-24 20:58 | PC.NURSE ---
Pt met with care team, plan is for pt to receive a bed on M5. Pt ambulates to the restroom with a steady gait. Plan of care ongoing.
--- NOTE | 2024-04-24 21:00 | PC.NURSE ---
Pt in bed from restroom.
--- NOTE | 2024-04-24 22:07 | PC.NURSE ---
M5 requiring med rec. Pharmacy called and per [place]ton unable to do med rec tonight. Pt is a bad historian unable to provide meds and doses Pts pharm is [facility], currently closed. Plan of care ongoing.
--- NOTE | 2024-04-24 22:57 | PC.NURSE ---
Pt ambulated to the restroom with a steady gait. Plan of care ongoing.
--- NOTE | 2024-04-25 00:25 | PC.NURSE ---
Pt ambulates to the restroom with a steady gait. Pt back to bed. Plan of care ongoing.
[2024-04-25] MEDS: OLANZapine 5 MG TABLET PO ×2 (00:27→20:18)
--- NOTE | 2024-04-25 00:29 | PC.NURSE ---
Pt medicated per dec. Plan of care ongoing.
[2024-04-25] MEDS: traZODone HCL 50 MG TABLET PO ×2 (01:09→20:18)
[2024-04-25 01:17] VITALS: BP 139/89; PULSE 90; RESP 18; TEMP 36.6; O2SAT 95
--- NOTE | 2024-04-25 04:52 | PC.ADMIT ---
Zulma is a 68 year old female who returns to after her recent discharge in the end of March. She complains of insomnia and something not right in my head. Past medical history of PTSD, ELIAN, HTN, depression, and premature atrial contraction. Zulma denies SI, but stated in the ED that she would be better off not being here.
[2024-04-25 08:00] VITALS: BP 125/73; PULSE 89; RESP 18; TEMP 37.2; O2SAT 96
[2024-04-25] MEDS: Magnesium Hydrox/Alum Hydrox 30 ML ORAL.SUSP PO (08:50)
[2024-04-25] MEDS: amLODIPine Besylate 5 MG TABLET PO (08:50)
[2024-04-25] MEDS: Pravastatin Sodium 20 MG TABLET PO (08:50)
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
[2024-04-25 09:24] LABS: Estimated Average Glucose 111 mg/dL; Hemoglobin A1c % 5.5 % (<6.0)
[2024-04-25 09:32] LABS: Cholesterol 124 mg/dL (<200); HDL Cholesterol 33 mg/dL (>40); LDL Cholesterol Calculated 72 mg/dL (<100); Triglycerides 96 mg/dL (<150)
[2024-04-25 09:46] LABS: TSH reflex Free T4 1.75 uIU/mL (0.32-4.0)
[2024-04-25] MEDS: Ondansetron ODT 8 MG TAB.RAPDIS TRANSLINGU (11:20)
[2024-04-25] MEDS: Vilazodone HCL 40 MG TABLET PO (17:40)
[2024-04-25 20:00] VITALS: BP 127/74; PULSE 122; RESP 16; TEMP 37.1; O2SAT 93
[2024-04-25] MEDS: busPIRone HCl 5 MG TABLET 15 MG PO (20:18)
[2024-04-25] MEDS: Zolpidem Tartrate 5 MG TABLET PO (20:18)
[2024-04-25] MEDS: Mirtazapine 15 MG TABLET PO (20:18)
[2024-04-26 08:00] VITALS: BP 124/63; PULSE 80; RESP 18; TEMP 36.8; O2SAT 94
[2024-04-26] MEDS: amLODIPine Besylate 5 MG TABLET PO (08:54)
[2024-04-26] MEDS: Pravastatin Sodium 20 MG TABLET PO (08:55)
[2024-04-26] MEDS: busPIRone HCl 5 MG TABLET 15 MG PO ×2 (08:55→21:11)
--- NOTE | 2024-04-26 09:57 | P.PNPSI_ITS ---
Subjective Subjective Date of Service: 04/26/24 Reason For Visit: Insomnia/Anxiety/Confusion Interim History: Met with patient; discussed with team; family meeting with Patient did sleep last night with Ambien 5 mg; did not need repeat Fam reports that patient had knee surgery around January and possibly due to anesthesia, patient got worsening depression. Discussed that over the past several months, february and March, patient has been seemingly very depressed and anxious, crying spells all day, feeling hopeless, saying things like lock me up asking to go to the emergency room with then refusing to... At some point she got T MS. She continued to have insomnia, low energy... Her agrees that she has insomnia however he thinks she is sleeping more than she reports; she however disagree saying she is just lying in bed with her eyes closed, not moving but she is completely awake. Reviewed history of medications, timeline of depression; seems that patient was overall able to keep depression contained for most of her life on Prozac and then Paxil. Patient remains confused, asking the same question over and over. She kept saying that [facility] stopped her mirtazapine and that this was helping, though it does not seem was helping that much given depression over the past several months; at any rate she Agrees to restart mirtazapine tonight to see if it will help asleep but will otherwise use Ambien. Also discussed ECT, reviewed risks/side effects and potential benefits and both and patient thought well of it. Mental Status Exam Mental Status Exam Narrative: Pt is alert and oriented; behavior is cooperative, anxious, with some confusion; patient is not in distress; dressed in hospital attire with unkempt hair but adequate hygiene; mood is described as anxious and affect congruent; eye contact appropriate; Speech is normal rate, volume and prosody and not pressured; both psychomotor agitation and retardation, (asking manual writer same question repeatedly); thought process is goal directed but perseverative and seems forgetful; Thought content is on medication for sleep; tx; otherwise pertinent to relevant topics and without any delusional content, paranoid ideations or grandiosity; denies any SI/HI. There is no evidence of perceptual disturbance and denies AVH. Patients insight and judgment impaired. Diagnostics Vital Signs (24Hr): Vital Signs - 24 hr 04/25/24 20:00 04/26/24 08:00 Temperature 98.7 F 98.2 F Pulse Rate 122 H 80 Respiratory Rate 16 18 Blood Pressure 127/74 124/63 Pulse Oximetry 93 94 Oxygen Delivery Method Room Air Room Air BMI result Body Mass Index 23.4 Labs 04/24/24 16:52 04/24/24 16:52 Labs: Laboratory Results - last 48 hr 04/24/24 04/24/24 04/25/24 16:52 17:36 08:49 WBC 14.4 H RBC 4.75 Hgb 14.4 Hct 42.9 MCV 90.3 MCH 30.3 MCHC 33.6 RDW 13.2 Plt Count 295 MPV 9.1 L Immature Gran % (Auto) 0.7 H Neut % (Auto) 68.4 Lymph % (Auto) 21.1 Long % (Auto) 8.3 Eos % (Auto) 1.0 Baso % (Auto) 0.5 Lymph # (Auto) 3.0 Long # (Auto) 1.2 Eos # (Auto) 0.1 Baso # (Auto) 0.1 Abs Immat Gran (auto) 0.10 H Absolute Neuts (auto) 9.9 H Absolute Nucleated RBC 0.000 Nucleated RBC % (auto) 0.0 Sodium 141 Potassium 4.0 Chloride 103 Carbon Dioxide 29 Anion Gap 13 BUN 14 Creatinine 0.76 Estim Creat Clear Calc 64.4 Estimated GFR > 60 Random Glucose 97 Estimat Average Glucose 111 Hemoglobin A1c % 5.5 Calcium 9.3 Total Bilirubin 0.6 AST 17 ALT 30 Alkaline Phosphatase 58 Total Protein 7.6 Albumin 4.2 Triglycerides 96 Cholesterol 124 LDL Cholesterol, Calc 72 HDL Cholesterol 33 L TSH 1.75 Urine Color Dark Yellow Urine Appearance Clear Urine pH 7.0 Ur Specific [place] 1.020 Urine Protein 30 (1+) H Urine Glucose (UA) Negative Urine Ketones Trace Urine Blood Negative Urine Nitrite Negative Ur Leukocyte Esterase Trace H Urine RBC 0-2 Urine WBC 0-5 Ur Squamous Epith Cells 0-2 Urine Bacteria None Seen Hyaline Casts 0-2 Salicylates < 5.0 L Urine Opiates Screen Not Detected Ur Buprenorphine Scrn Not Detected Ur Oxycodone Screen Not Detected Urine Methadone Screen Not Detected Urine Fentanyl Screen Not Detected Acetaminophen < 3 Ur Barbiturates Screen Not Detected Ur Phencyclidine Scrn Not Detected Ur Amphetamines Screen Not Detected U Benzodiazepines Scrn Not Detected Urine Cocaine Screen Not Detected U Marijuana (THC) Screen POSITIVE H Ethyl Alcohol < 10 COVID-19 (JANET) Negative COVID-19 Clin Com See Note Medications Medications Current Medications Acetaminophen (Acetaminophen 325 Mg Tablet) 650 mg PO Q6H PRN PRN Reason: Headache/Pain Mild Scale (1-3) Al Hydroxide/Mg Hydroxide (Magnesium Hydrox/Alum Hydrox 30 Ml Oral.Susp) 30 ml PO Q6H PRN PRN Reason: Heartburn/Nausea Last Admin: 04/25/24 08:50 Dose: 30 ml Amlodipine Besylate (Amlodipine Besylate 5 Mg Tablet) 5 mg PO DAILY [facility]; Protocol Last Admin: 04/26/24 08:54 Dose: 5 mg Buspirone HCl (Buspirone Hcl 5 Mg Tablet) 15 mg PO BID [facility] Last Admin: 04/26/24 08:55 Dose: 15 mg Lorazepam (Lorazepam 0.5 Mg Tablet) 0.5 mg PO Q8H PRN PRN Reason: moderate anxiety Magnesium Hydroxide (Milk Of Magnesia 30 Ml Oral.Susp) 30 ml PO DAILY PRN PRN Reason: Constipation Mirtazapine (Mirtazapine 15 Mg Tablet) 15 mg PO BEDTIME [facility] Last Admin: 04/25/24 20:18 Dose: 15 mg Nicotine (Nicotine 21 Mg Patch.Td24) 21 mg TRANSDERMA DAILY PRN PRN Reason: smoking cessation Nicotine Polacrilex (Nicotine Polacrilex 2 Mg Gum) 4 mg BUCCAL Q2H PRN PRN Reason: Nicotine Cravings Olanzapine (Olanzapine 5 Mg Tablet) 5 mg PO TID PRN PRN Reason: Restlessness Olanzapine (Olanzapine 5 Mg Tablet) 5 mg PO BEDTIME [facility] Last Admin: 04/25/24 20:18 Dose: 5 mg Ondansetron HCl (Ondansetron Odt 4 Mg Tab.Rapdis) 4 mg TRANSLINGU Q6H PRN PRN Reason: Nausea and Vomiting Pravastatin Sodium (Pravastatin Sodium 20 Mg Tablet) 20 mg PO DAILY [facility] Last Admin: 04/26/24 08:55 Dose: 20 mg Trazodone HCl (Trazodone Hcl 50 Mg Tablet) 50 mg PO BEDTIME MRX1 PRN PRN Reason: Insomnia Last Admin: 04/25/24 20:18 Dose: 50 mg Vilazodone HCl (Vilazodone Hcl 40 Mg Tablet) 40 mg PO DAILY@1700 [facility] Last Admin: 04/25/24 17:40 Dose: 40 mg Zolpidem Tartrate (Zolpidem Tartrate 5 Mg Tablet) 5 mg PO BEDTIME PRN PRN Reason: Insomnia Allergies Allergies Allergy/AdvReac Type Severity Reaction Status Date / Time No Known Allergies Allergy Verified 04/24/24 16:36 [No Known Allergies*] Assessment & Plan Assessment & Plan (1) MDD (major depressive disorder), recurrent severe, without psychosis: Status: Acute Code(s): F33.2 - Major depressive disorder, recurrent severe without psychotic features (2) Chronic insomnia: Status: Acute Code(s): F51.04 - Psychophysiologic insomnia Plan HPI: Patient is a 68-year-old woman with history of depression, chronic insomnia, SI, anxiety, OCD, pre diabetes, HTN, and osteoporosis who presents for continued insomnia over the past 2 weeks. Patient was discharged on 04/11 after a very brief hospitalization for concern regarding an accidental overdose. Over the next 2 weeks she presented to the emergency room 3 times, on 04/15, 04/21 and on 04/24 all for insomnia: On 04/15 psychiatric consult increase Zyprexa to 5 mg q.h.s. and added trazodone On 04/21 psychiatric consult reports reports pt appears more forgetful, repeating information, ambivalent about decisions (such as wanting to go to the hospital, but then wanting to go home). Pt reports she is not able to sleep. However, reports that he sees her sleeping. reports pt appears more impulsive, anxious. Both denied suicidal ideation. No signs of psychosis or delusional content. Referred patient to [facility], and started patient on Lunesta Patient returns now continuing to report that she has not been able to sleep and that she is very anxious. She reports she just lies in bed, thinking about not sleeping; during the day she is walking around tired; she denies any manic symptoms. She starts to have worries that maybe she will lose her mind if she does not sleep. Initially she says she has not slept for the past 3 days on further inquiry she says maybe it has been longer, maybe it has been for 2 weeks. She denies depression, any SI or AVH. She appears somewhat confused, asking some questions over and over, and unclear about medication history. She agrees to take Anand muñoz and have her come in for a family meeting tomorrow to help provide more information for her presenting illness. Impression/clinical reasoning: Patient has long history of depression however it it seems that it is only become severe over the last 2 years; multiple SSRI/SNRI trials have been ineffective or if helpful, not sustainable so She appears confused to some degree which is different than 2 weeks ago and seems more likely due to lack of sleep then dementia; however dementia does remain something to explore Today will start with Ambien just to get patient some sleep. Will discuss further treatment plans with her tomorrow Hospital course: 04/26 Patient did sleep last night with Ambien 5 mg; did not need repeat -still seems confused Fam reports that patient had knee surgery around January and possibly due to anesthesia, patient got worsening depression. Discussed that over the past several months, february and March, patient has been seemingly very depressed and anxious, crying spells all day, feeling hopeless, saying things like lock me up asking to go to the emergency room with then refusing to... At some point she got T MS. She continued to have insomnia, low energy... Her agrees that she has insomnia however he thinks she is sleeping more than she reports; she however disagree saying she is just lying in bed with her eyes closed, not moving but she is completely awake. Reviewed history of medications, timeline of depression; seems that patient was overall able to keep depression contained for most of her life on Prozac and then Paxil. Patient remains confused, asking the same question over and over. She kept saying that [facility] stopped her mirtazapine and that this was helping, though it does not seem was helping that much given depression over the past several months; at any rate she Agrees to restart mirtazapine tonight to see if it will help asleep but will otherwise use Ambien. Also discussed ECT, reviewed risks/side effects and potential benefits and both and patient thought well of it. Plan: CV q15min Restart mirtazapine 15 mg to see if helps with sleep Continue Ambien 5mg as a p.r.n. Continue Viibryd 40 mg daily Continue pravastatin 20 mg daily Continue Amlodipine 5 mg daily Continue Buspirone [address] 03/26/2024 The ventricles are normal in size. Stable small right basal ganglia calcification.. Correction in history: Patient was on Lexapro in 2022 Patient educated on: diagnosis, medication risk/benefits and ECT Informed Consent: understands Reason for continued inpatient stay Substantial Risk for: inability to function Time Spent With Patient Time: Total time managing care of this patient today ____ minutes.
--- NOTE | 2024-04-26 16:02 | PM.EVENT ---
Event Note Date of Service: 04/26/24 Event Note: Hospital medicine team consulted for medical assessment prior to ECT. Patient without signs or symptoms of angina or decompensated heart failure. Blood pressure well controlled and within normal limits. Not on beta-gavin. Respiratory status within normal limits. No history of diabetes. No additional workup indicated. Ok to proceed with ECT. RCRI: Preoperative risk class I Time Spent With Patient Time: Total time managing care of this patient today ____ minutes.
[2024-04-26] MEDS: Vilazodone HCL 40 MG TABLET PO (17:39)
[2024-04-26 20:00] VITALS: BP 153/91; PULSE 90; TEMP 2.4; TEMP 36.4; O2SAT 95
[2024-04-26] MEDS: traZODone HCL 50 MG TABLET PO (21:11)
[2024-04-26] MEDS: Mirtazapine 15 MG TABLET PO (21:11)
[2024-04-26] MEDS: OLANZapine 5 MG TABLET PO (21:11)
[2024-04-26] MEDS: Zolpidem Tartrate 5 MG TABLET PO (21:48)
[2024-04-27 07:00] VITALS: BMI 24.4
[2024-04-27 08:29] VITALS: BP 103/78; PULSE 80; RESP 16; TEMP 36.8; O2SAT 93
[2024-04-27] MEDS: busPIRone HCl 5 MG TABLET 15 MG PO ×2 (09:22→20:57)
[2024-04-27] MEDS: Pravastatin Sodium 20 MG TABLET PO (09:22)
[2024-04-27 10:53] VITALS: BP 123/68
[2024-04-27] MEDS: amLODIPine Besylate 5 MG TABLET PO (10:53)
[2024-04-27] MEDS: LORazepam 0.5 MG TABLET PO (11:39)
[2024-04-27] MEDS: Vilazodone HCL 40 MG TABLET PO (16:19)
[2024-04-27 20:00] VITALS: BP 132/69; PULSE 96; TEMP 36.6; O2SAT 95
[2024-04-27] MEDS: Lithium Carbonate ER 300 MG TABLET.ER PO (20:57)
[2024-04-27] MEDS: Zolpidem Tartrate 5 MG TABLET PO (20:58)
--- NOTE | 2024-04-28 00:01 | HO.PSYCHPN ---
Subjective Subjective Date of Service: 04/27/24 Reason For Visit: Insomnia/Anxiety/Confusion Interim History: note for pt seen on 04/27; discussed with team; discussed case with Dr. Martinez mortgage or loan underwriter finds pt much more clear today which she agrees and thinks it's likely because she's now had 2 nights of sleep. Discussed confused interactions yesterday and perseverative behavior, asking mortgage or loan underwriter same thing over (will there be tx for insomnia). Aware she was doing it and says motivated by anxitey and wanting to be re-assured; discussed hx of OCD that she's been able to keep at bay, but that it prompts her to ask over and over due to intrusive thought that she might not have heard correctly (hx of counting things, repeating actions..says once aware could tell herself to stop it and it is typically not a problem but comes out when more depressed). meeting yesterday diffucult; felt embarrassed, vulnerable but says it was also helpful and necesasary. she agrees now that she is and has been depressed; says did not realize it at first, but sees it now and thinks insomnia associated; says no interest in things, low appetite, hopeless feelings, insomnia, tired..Discussed hx and she agrees with time-line that she was pretty well held together with ayad lin for 35 years and only in last 2 years has she continued to have bouts of debilitation depression. discussed tx going over ECT vs medication options; she aggrees with meds first and after going over options would like to try [place] since totally different class of meds (mortgage or loan underwriter reviewed risks/side-effects; she understood and wants to proceed). Mental Status Exam Mental Status Exam Narrative: Pt is alert and oriented; behavior is cooperative, anxious, but no longer confused; patient is not in distress; dressed in hospital attire with adequate hygiene; mood is described as anxious but a little better and affect congruent; eye contact appropriate; Speech is normal rate, volume and prosody and not pressured; psychomotor retardation present; thought process is goal directed but much more linear, still somewhat perseverative but does not seem forgetful; Thought content is on medication for sleep; tx; otherwise pertinent to relevant topics and without any delusional content, paranoid ideations or grandiosity; denies any SI/HI. There is no evidence of perceptual disturbance and denies AVH. Patients insight and judgment impaired but improving Diagnostics Vital Signs (24Hr): Vital Signs - 24 hr 04/27/24 08:29 04/27/24 10:53 Temperature 98.3 F Pulse Rate 80 Respiratory Rate 16 Blood Pressure 103/78 123/68 Pulse Oximetry 93 Oxygen Delivery Method Room Air BMI result Body Mass Index 24.4 Labs 04/24/24 16:52 04/24/24 16:52 Medications Medications Current Medications Acetaminophen (Acetaminophen 325 Mg Tablet) 650 mg PO Q6H PRN PRN Reason: Headache/Pain Mild Scale (1-3) Al Hydroxide/Mg Hydroxide (Magnesium Hydrox/Alum Hydrox 30 Ml Oral.Susp) 30 ml PO Q6H PRN PRN Reason: Heartburn/Nausea Last Admin: 04/25/24 08:50 Dose: 30 ml Amlodipine Besylate (Amlodipine Besylate 5 Mg Tablet) 5 mg PO DAILY [facility]; Protocol Last Admin: 04/27/24 10:53 Dose: 5 mg Buspirone HCl (Buspirone Hcl 5 Mg Tablet) 15 mg PO BID [facility] Last Admin: 04/27/24 20:57 Dose: 15 mg [place] Carbonate ([place] Carbonate Er 300 Mg Tablet.Er) 300 mg PO BEDTIME [facility] Last Admin: 04/27/24 20:57 Dose: 300 mg Lorazepam (Lorazepam 0.5 Mg Tablet) 0.5 mg PO Q8H PRN PRN Reason: moderate anxiety Last Admin: 04/27/24 11:39 Dose: 0.5 mg Magnesium Hydroxide (Milk Of Magnesia 30 Ml Oral.Susp) 30 ml PO DAILY PRN PRN Reason: Constipation Olanzapine (Olanzapine 5 Mg Tablet) 5 mg PO TID PRN PRN Reason: Restlessness Ondansetron HCl (Ondansetron Odt 4 Mg Tab.Rapdis) 4 mg TRANSLINGU Q6H PRN PRN Reason: Nausea and Vomiting Pravastatin Sodium (Pravastatin Sodium 20 Mg Tablet) 20 mg PO DAILY [facility] Last Admin: 04/27/24 09:22 Dose: 20 mg Vilazodone HCl (Vilazodone Hcl 40 Mg Tablet) 40 mg PO DAILY@1700 [facility] Last Admin: 04/27/24 16:19 Dose: 40 mg Zolpidem Tartrate (Zolpidem Tartrate 5 Mg Tablet) 5 mg PO BEDTIME PRN PRN Reason: Insomnia Last Admin: 04/27/24 20:58 Dose: 5 mg Allergies Allergies Allergy/AdvReac Type Severity Reaction Status Date / Time No Known Allergies Allergy Verified 04/24/24 16:36 [No Known Allergies*] Assessment & Plan Assessment & Plan (1) OCD (obsessive compulsive disorder): Status: Acute Code(s): F42.9 - Obsessive-compulsive disorder, unspecified Plan HPI: Patient is a 68-year-old woman with history of depression, chronic insomnia, SI, anxiety, OCD, pre diabetes, HTN, and osteoporosis who presents for continued insomnia over the past 2 weeks. Patient was discharged on 04/11 after a very brief hospitalization for concern regarding an accidental overdose. Over the next 2 weeks she presented to the emergency room 3 times, on 04/15, 04/21 and on 04/24 all for insomnia: On 04/15 psychiatric consult increase Zyprexa to 5 mg q.h.s. and added trazodone On 04/21 psychiatric consult reports reports pt appears more forgetful, repeating information, ambivalent about decisions (such as wanting to go to the hospital, but then wanting to go home). Pt reports she is not able to sleep. However, reports that he sees her sleeping. reports pt appears more impulsive, anxious. Both denied suicidal ideation. No signs of psychosis or delusional content. Referred patient to [facility], and started patient on Lunesta Patient returns now continuing to report that she has not been able to sleep and that she is very anxious. She reports she just lies in bed, thinking about not sleeping; during the day she is walking around tired; she denies any manic symptoms. She starts to have worries that maybe she will lose her mind if she does not sleep. Initially she says she has not slept for the past 3 days on further inquiry she says maybe it has been longer, maybe it has been for 2 weeks. She denies depression, any SI or AVH. She appears somewhat confused, asking some questions over and over, and unclear about medication history. She agrees to take Anahyien wanda and have her come in for a family meeting tomorrow to help provide more information for her presenting illness. Impression/clinical reasoning: Patient has long history of depression however it it seems that it is only become severe over the last 2 years; multiple SSRI/SNRI trials have been ineffective or if helpful, not sustainable so She appears confused to some degree which is different than 2 weeks ago and seems more likely due to lack of sleep then dementia; however dementia does remain something to explore Today will start with Ambien just to get patient some sleep. Will discuss further treatment plans with her tomorrow Hospital course: 04/26 Patient did sleep last night with Ambien 5 mg; did not need repeat -still seems confused Fam reports that patient had knee surgery around January and possibly due to anesthesia, patient got worsening depression. Discussed that over the past several months, february and March, patient has been seemingly very depressed and anxious, crying spells all day, feeling hopeless, saying things like lock me up asking to go to the emergency room with then refusing to... At some point she got T MS. She continued to have insomnia, low energy... Her agrees that she has insomnia however he thinks she is sleeping more than she reports; she however disagree saying she is just lying in bed with her eyes closed, not moving but she is completely awake. Reviewed history of medications, timeline of depression; seems that patient was overall able to keep depression contained for most of her life on Prozac and then Paxil. Patient remains confused, asking the same question over and over. She kept saying that [facility] stopped her mirtazapine and that this was helping, though it does not seem was helping that much given depression over the past several months; at any rate she Agrees to restart mirtazapine tonight to see if it will help asleep but will otherwise use Ambien. Also discussed ECT, reviewed risks/side effects and potential benefits and both and patient thought well of it. 04/27 patient much more clear today, with linear thinking. She feels the same. Feels that having gotten some sleep is very helpful. Discussed history thoroughly and OCD remains a component of her presentation, however much of it she is able to control. Patient would like to start lithium and mortgage or loan underwriter agrees with plan. Will discontinue mirtazapine which has not proved helpful. Will continue with Viibryd however since it may very well be partially helpful And do not want to change multiple things at once; discussed ECT again and patient agrees to try medication management further before ECT.. Plan: CV q15min START [place] ER 300mg qhs DC mirtazapine not helpful Continue Ambien 5mg as a p.r.n. Continue Viibryd 40 mg daily Continue pravastatin 20 mg daily Continue Amlodipine 5 mg daily Continue Buspirone [address] 03/26/2024 The ventricles are normal in size. Stable small right basal ganglia calcification.. Correction in history: Patient was on Lexapro in 2022 Regarding [place], Risks, side-effects and benefits reviewed with pt, including, but not limited to, damage to kidneys and thyroid; pt was educated to stay hydrated, to watch for symptoms of lithium toxicity (also discussed, including but not limited to nausea, tremor, confusion) and the need to stay away from OTC NSAIDs (specifics reviewed) aside from Tylenol. Patient educated on: diagnosis, medication risk/benefits and ECT Informed Consent: understands Reason for continued inpatient stay Substantial Risk for: rapid decompensation Time Spent With Patient Time: Total time managing care of this patient today ____ minutes.
[2024-04-28 08:00] VITALS: BP 135/73; PULSE 76; TEMP 36.5; O2SAT 94
[2024-04-28 08:17] VITALS: BP 135/73
[2024-04-28] MEDS: busPIRone HCl 5 MG TABLET 15 MG PO ×2 (08:17→20:53)
[2024-04-28] MEDS: amLODIPine Besylate 5 MG TABLET PO (08:17)
[2024-04-28] MEDS: Pravastatin Sodium 20 MG TABLET PO (08:17)
--- NOTE | 2024-04-28 08:40 | HO.PSYCHPN ---
Subjective Subjective Date of Service: 04/28/24 Reason For Visit: Insomnia/Anxiety/Confusion Interim History: Met with patient; discussed with team says slept but again with ambien. changed her mind and does not?want?to?take?lithium.??She?said?last?night?she?got?tremor?about?an?hour?after Taking?lithium.??Today?she?said?she?felt outer?body ?experience.??Field Inspector?provided?education?about?what? was?likely?and not?likely?medication?side?effect;?also?how?it?may?be?worth?continuing?to?see?if?side?effect Goes?away.??However?she?instead?wanted?to?go?back?to?other?option,?[facility]?and?agreed?to?start Nortriptyline. Mental Status Exam Mental Status Exam Narrative: Pt is alert and oriented; behavior is cooperative, anxious, but no longer confused; patient is not in distress; dressed in hospital attire with adequate hygiene; mood is described as anxious but a little better and affect congruent; eye contact appropriate; Speech is normal rate, volume and prosody and not pressured; psychomotor retardation present; thought process is goal directed but much more linear, still somewhat perseverative but does not seem forgetful; Thought content is on medication for sleep; tx; otherwise pertinent to relevant topics and without any delusional content, paranoid ideations or grandiosity; denies any SI/HI. There is no evidence of perceptual disturbance and denies AVH. Patients insight and judgment impaired but improving Diagnostics Vital Signs (24Hr): Vital Signs - 24 hr 04/27/24 10:53 04/27/24 20:00 04/28/24 08:17 Temperature 97.9 F Pulse Rate 96 Blood Pressure 123/68 132/69 135/73 Pulse Oximetry 95 Oxygen Delivery Method Room Air BMI result Body Mass Index 24.4 Labs 04/24/24 16:52 04/24/24 16:52 Medications Medications Current Medications Acetaminophen (Acetaminophen 325 Mg Tablet) 650 mg PO Q6H PRN PRN Reason: Headache/Pain Mild Scale (1-3) Al Hydroxide/Mg Hydroxide (Magnesium Hydrox/Alum Hydrox 30 Ml Oral.Susp) 30 ml PO Q6H PRN PRN Reason: Heartburn/Nausea Last Admin: 04/25/24 08:50 Dose: 30 ml Amlodipine Besylate (Amlodipine Besylate 5 Mg Tablet) 5 mg PO DAILY [facility]; Protocol Last Admin: 04/28/24 08:17 Dose: 5 mg Buspirone HCl (Buspirone Hcl 5 Mg Tablet) 15 mg PO BID [facility] Last Admin: 04/28/24 08:17 Dose: [address] [facility] Carbonate ([facility] Carbonate Er 300 Mg Tablet.Er) 300 mg PO BEDTIME [facility] Last Admin: 04/27/24 20:57 Dose: 300 mg Lorazepam (Lorazepam 0.5 Mg Tablet) 0.5 mg PO Q8H PRN PRN Reason: moderate anxiety Last Admin: 04/27/24 11:39 Dose: 0.5 mg Magnesium Hydroxide (Milk Of Magnesia 30 Ml Oral.Susp) 30 ml PO DAILY PRN PRN Reason: Constipation Olanzapine (Olanzapine 5 Mg Tablet) 5 mg PO TID PRN PRN Reason: Restlessness Ondansetron HCl (Ondansetron Odt 4 Mg Tab.Rapdis) 4 mg TRANSLINGU Q6H PRN PRN Reason: Nausea and Vomiting Pravastatin Sodium (Pravastatin Sodium 20 Mg Tablet) 20 mg PO DAILY [facility] Last Admin: 04/28/24 08:17 Dose: 20 mg Vilazodone HCl (Vilazodone Hcl 40 Mg Tablet) 40 mg PO DAILY@1700 [facility] Last Admin: 04/27/24 16:19 Dose: 40 mg Zolpidem Tartrate (Zolpidem Tartrate 5 Mg Tablet) 5 mg PO BEDTIME PRN PRN Reason: Insomnia Last Admin: 04/27/24 20:58 Dose: 5 mg Allergies Allergies Allergy/AdvReac Type Severity Reaction Status Date / Time No Known Allergies Allergy Verified 04/24/24 16:36 [No Known Allergies*] Assessment & Plan Assessment & Plan (1) MDD (major depressive disorder), recurrent severe, without psychosis: Status: Acute Code(s): F33.2 - Major depressive disorder, recurrent severe without psychotic features (2) OCD (obsessive compulsive disorder): Status: Acute Code(s): F42.9 - Obsessive-compulsive disorder, unspecified (3) Chronic insomnia: Status: Acute Code(s): F51.04 - Psychophysiologic insomnia Plan HPI: Patient is a 68-year-old woman with history of depression, chronic insomnia, SI, anxiety, OCD, pre diabetes, HTN, and osteoporosis who presents for continued insomnia over the past 2 weeks. Patient was discharged on 04/11 after a very brief hospitalization for concern regarding an accidental overdose. Over the next 2 weeks she presented to the emergency room 3 times, on 04/15, 04/21 and on 04/24 all for insomnia: On 04/15 psychiatric consult increase Zyprexa to 5 mg q.h.s. and added trazodone On 04/21 psychiatric consult reports reports pt appears more forgetful, repeating information, ambivalent about decisions (such as wanting to go to the hospital, but then wanting to go home). Pt reports she is not able to sleep. However, reports that he sees her sleeping. reports pt appears more impulsive, anxious. Both denied suicidal ideation. No signs of psychosis or delusional content. Referred patient to [facility], and started patient on Lunesta Patient returns now continuing to report that she has not been able to sleep and that she is very anxious. She reports she just lies in bed, thinking about not sleeping; during the day she is walking around tired; she denies any manic symptoms. She starts to have worries that maybe she will lose her mind if she does not sleep. Initially she says she has not slept for the past 3 days on further inquiry she says maybe it has been longer, maybe it has been for 2 weeks. She denies depression, any SI or AVH. She appears somewhat confused, asking some questions over and over, and unclear about medication history. She agrees to take Anand muñoz and have her come in for a family meeting tomorrow to help provide more information for her presenting illness. Impression/clinical reasoning: Patient has long history of depression however it it seems that it is only become severe over the last 2 years; multiple SSRI/SNRI trials have been ineffective or if helpful, not sustainable so She appears confused to some degree which is different than 2 weeks ago and seems more likely due to lack of sleep then dementia; however dementia does remain something to explore Today will start with Ambien just to get patient some sleep. Will discuss further treatment plans with her tomorrow Hospital course: 04/26 Patient did sleep last night with Ambien 5 mg; did not need repeat -still seems confused Fam reports that patient had knee surgery around January and possibly due to anesthesia, patient got worsening depression. Discussed that over the past several months, february and March, patient has been seemingly very depressed and anxious, crying spells all day, feeling hopeless, saying things like lock me up asking to go to the emergency room with then refusing to... At some point she got T MS. She continued to have insomnia, low energy... Her agrees that she has insomnia however he thinks she is sleeping more than she reports; she however disagree saying she is just lying in bed with her eyes closed, not moving but she is completely awake. Reviewed history of medications, timeline of depression; seems that patient was overall able to keep depression contained for most of her life on Prozac and then Paxil. Patient remains confused, asking the same question over and over. She kept saying that [facility] stopped her mirtazapine and that this was helping, though it does not seem was helping that much given depression over the past several months; at any rate she Agrees to restart mirtazapine tonight to see if it will help asleep but will otherwise use Ambien. Also discussed ECT, reviewed risks/side effects and potential benefits and both and patient thought well of it. 04/27 patient much more clear today, with linear thinking. She feels the same. Feels that having gotten some sleep is very helpful. Discussed history thoroughly and OCD remains a component of her presentation, however much of it she is able to control. Patient would like to start lithium and filing writer agrees with plan. Will discontinue mirtazapine which has not proved helpful. Will continue with Viibryd however since it may very well be partially helpful And do not want to change multiple things at once; discussed ECT again and patient agrees to try medication management further before ECT.. 04/[address] [facility]: feels had side-effect and afraid of sound of [facility]; wants to go to [facility] instead and agrees to Nortyptyline Plan: CV q15min START Nortyptyline 75mg for depression, anxiety, insomnia DC [facility] does not want; anxious about, maybe side-effect DC mirtazapine not helpful Continue Ambien 5mg as a p.r.n. Continue Viibryd 40 mg daily Continue pravastatin 20 mg daily Continue Amlodipine 5 mg daily Continue Buspirone [address] 03/26/2024 The ventricles are normal in size. Stable small right basal ganglia calcification.. Correction in history: Patient was on Lexapro in [address] [place], Risks, side-effects and benefits reviewed with pt, including, but not limited to, damage to kidneys and thyroid; pt was educated to stay hydrated, to watch for symptoms of lithium toxicity (also discussed, including but not limited to nausea, tremor, confusion) and the need to stay away from OTC NSAIDs (specifics reviewed) aside from Tylenol. Patient educated on: diagnosis, medication risk/benefits and ECT Informed Consent: understands and further education needed Reason for continued inpatient stay Substantial Risk for: rapid decompensation Time Spent With Patient Time: Total time managing care of this patient today ____ minutes.
[2024-04-28] MEDS: OLANZapine 5 MG TABLET PO (13:37)
[2024-04-28] MEDS: Vilazodone HCL 40 MG TABLET PO (18:27)
[2024-04-28 20:00] VITALS: BP 140/89; PULSE 100; RESP 16; TEMP 37.2; O2SAT 97
[2024-04-28] MEDS: Nortriptyline HCl 25 MG CAPSULE PO (20:53)
[2024-04-28] MEDS: Zolpidem Tartrate 5 MG TABLET PO (20:53)
[2024-04-29 07:50] VITALS: BP 148/85; PULSE 87; RESP 16; TEMP 36.1; O2SAT 95
[2024-04-29] MEDS: amLODIPine Besylate 5 MG TABLET PO (08:38)
[2024-04-29] MEDS: busPIRone HCl 5 MG TABLET 15 MG PO ×2 (08:38→20:08)
[2024-04-29] MEDS: Pravastatin Sodium 20 MG TABLET PO (08:38)
--- NOTE | 2024-04-29 09:37 | P.PNPSI_ITS ---
Subjective Subjective Date of Service: 04/29/24 Reason For Visit: Insomnia/Anxiety/Confusion Interim History: Met with patient; discussed with team Patient reports she continues to have insomnia. Remeron hasn't been helpful. Nortriptyline wasn't helpful. She is worried Ambien will have to be DCd on DC because it is partially helpful. Discussed Doxepin as a trial. Patient willing to try. Denies SI. Remains depressed and anxious. Review of Systems Review of Systems Constitutional : No Weight loss, No Fever, No Chills, No Night Sweats, No Fatigue, No Malaise ENT/Mouth : No Hearing loss, No Ear Pain, No Nasal Congestion, No Sinus Pain, No Hoarseness, No sore throat, No Rhinorrhea, No Swallowing Difficulty Eyes: No Eye Pain, No Swelling, No Redness, No Foreign Body, No Discharge, No Vision Changes Cardiovascular : No Chest Pain, No SOB, No Dyspnea on Exertion, No Orthopnea, No Edema, No Palpitations Respiratory : No Cough, No Sputum, No Wheezing, No Smoke Exposure, No Dyspnea Gastrointestinal : No Nausea, No Vomiting, No Diarrhea, No Constipation, No abdominal Pain, No Hematochezia, No Melena Genitourinary : no irregular bleeding, No Dysuria, No Urinary Frequency, No Hematuria, No Urinary Incontinence, No Urgency, No Flank Pain, No Urinary Flow Changes, No Hesitancy Musculoskeletal : No joint pain, No Myalgias, No Joint Swelling Skin : No Skin Lesions, No rash Neuro : No Weakness, No Numbness, No Paresthesias, No Loss of Consciousness, No Dizziness, No Headache Psych : No Anxiety/Panic, complaining of depression, no SI or HI, complaining of chronic insomnia Heme/Lymph: No Bruising, No Bleeding,No Lymphadenopathy Endocrine : No Polyuria, No Polydipsia, No Temperature Intolerance Mental Status Exam Mental Status Exam Narrative: Pt is alert and oriented; behavior is cooperative, anxious, but no longer confused; patient is not in distress; dressed in hospital attire with adequate hygiene; mood is described as anxious but a little better and affect congruent; eye contact appropriate; Speech is normal rate, volume and prosody and not pressured; psychomotor retardation present; thought process is goal directed but much more linear, still somewhat perseverative but does not seem forgetful; Thought content is on medication for sleep; tx; otherwise pertinent to relevant topics and without any delusional content, paranoid ideations or grandiosity; denies any SI/HI. There is no evidence of perceptual disturbance and denies AVH. Patients insight and judgment impaired but improving Diagnostics Vital Signs (24Hr): Vital Signs - 24 hr 04/28/24 20:00 04/29/24 07:50 Temperature 98.9 F 97 F Pulse Rate 100 87 Respiratory Rate 16 16 Blood Pressure 140/89 H 148/85 H Pulse Oximetry 97 95 Oxygen Delivery Method Room Air Room Air BMI result Body Mass Index 24.4 Labs 04/24/24 16:52 04/24/24 16:52 Medications Medications Current Medications Acetaminophen (Acetaminophen 325 Mg Tablet) 650 mg PO Q6H PRN PRN Reason: Headache/Pain Mild Scale (1-3) Al Hydroxide/Mg Hydroxide (Magnesium Hydrox/Alum Hydrox 30 Ml Oral.Susp) 30 ml PO Q6H PRN PRN Reason: Heartburn/Nausea Last Admin: 04/25/24 08:50 Dose: 30 ml Amlodipine Besylate (Amlodipine Besylate 5 Mg Tablet) 5 mg PO DAILY [facility]; Protocol Last Admin: 04/29/24 08:38 Dose: 5 mg Buspirone HCl (Buspirone Hcl 5 Mg Tablet) 15 mg PO BID [facility] Last Admin: 04/29/24 08:38 Dose: 15 mg Lorazepam (Lorazepam 0.5 Mg Tablet) 0.5 mg PO Q8H PRN PRN Reason: moderate anxiety Last Admin: 04/27/24 11:39 Dose: 0.5 mg Magnesium Hydroxide (Milk Of Magnesia 30 Ml Oral.Susp) 30 ml PO DAILY PRN PRN Reason: Constipation Nortriptyline HCl (Nortriptyline Hcl 25 Mg Capsule) 25 mg PO BEDTIME [facility] Last Admin: 04/28/24 20:53 Dose: 25 mg Olanzapine (Olanzapine 5 Mg Tablet) 5 mg PO TID PRN PRN Reason: Restlessness Last Admin: 04/28/24 13:37 Dose: 5 mg Ondansetron HCl (Ondansetron Odt 4 Mg Tab.Rapdis) 4 mg TRANSLINGU Q6H PRN PRN Reason: Nausea and Vomiting Pravastatin Sodium (Pravastatin Sodium 20 Mg Tablet) 20 mg PO DAILY [facility] Last Admin: 04/29/24 08:38 Dose: 20 mg Vilazodone HCl (Vilazodone Hcl 40 Mg Tablet) 40 mg PO DAILY@1700 [facility] Last Admin: 04/28/24 18:27 Dose: 40 mg Zolpidem Tartrate (Zolpidem Tartrate 5 Mg Tablet) 5 mg PO BEDTIME PRN PRN Reason: Insomnia Last Admin: 04/28/24 20:53 Dose: 5 mg Allergies Allergies Allergy/AdvReac Type Severity Reaction Status Date / Time No Known Allergies Allergy Verified 04/24/24 16:36 [No Known Allergies*] Assessment & Plan Assessment & Plan (1) OCD (obsessive compulsive disorder): Status: Acute Code(s): F42.9 - Obsessive-compulsive disorder, unspecified Plan HPI: Patient is a 68-year-old woman with history of depression, chronic insomnia, SI, anxiety, OCD, pre diabetes, HTN, and osteoporosis who presents for continued insomnia over the past 2 weeks. Patient was discharged on 04/11 after a very brief hospitalization for concern regarding an accidental overdose. Over the next 2 weeks she presented to the emergency room 3 times, on 04/15, 04/21 and on 04/24 all for insomnia: On 04/15 psychiatric consult increase Zyprexa to 5 mg q.h.s. and added trazodone On 04/21 psychiatric consult reports reports pt appears more forgetful, repeating information, ambivalent about decisions (such as wanting to go to the hospital, but then wanting to go home). Pt reports she is not able to sleep. However, reports that he sees her sleeping. reports pt appears more impulsive, anxious. Both denied suicidal ideation. No signs of psychosis or delusional content. Referred [facility] to [facility], and started patient on Lunesta Patient returns now continuing to report that she has not been able to sleep and that she is very anxious. She reports she just lies in bed, thinking about not sleeping; during the day she is walking around tired; she denies any manic symptoms. She starts to have worries that maybe she will lose her mind if she does not sleep. Initially she says she has not slept for the past 3 days on further inquiry she says maybe it has been longer, maybe it has been for 2 weeks. She denies depression, any SI or AVH. She appears somewhat confused, asking some questions over and over, and unclear about medication history. She agrees to take Ambien tonight and have her come in for a family meeting tomorrow to help provide more information for her presenting illness. Impression/clinical reasoning: Patient has long history of depression however it it seems that it is only become severe over the last 2 years; multiple SSRI/SNRI trials have been ineffective or if helpful, not sustainable so She appears confused to some degree which is different than 2 weeks ago and seems more likely due to lack of sleep then dementia; however dementia does remain something to explore Today will start with Ambien just to get patient some sleep. Will discuss further treatment plans with her tomorrow Hospital course: 04/26 Patient did sleep last night with Ambien 5 mg; did not need repeat -still seems confused Fam reports that patient had knee surgery around January and possibly due to anesthesia, patient got worsening depression. Discussed that over the past several months, february and March, patient has been seemingly very depressed and anxious, crying spells all day, feeling hopeless, saying things like lock me up asking to go to the emergency room with then refusing to... At some point she got T MS. She continued to have insomnia, low energy... Her agrees that she has insomnia however he thinks she is sleeping more than she reports; she however disagree saying she is just lying in bed with her eyes closed, not moving but she is completely awake. Reviewed history of medications, timeline of depression; seems that patient was overall able to keep depression contained for most of her life on Prozac and then Paxil. Patient remains confused, asking the same question over and over. She kept saying that [facility] stopped her mirtazapine and that this was helping, though it does not seem was helping that much given depression over the past several months; at any rate she Agrees to restart mirtazapine tonight to see if it will help asleep but will otherwise use Ambien. Also discussed ECT, reviewed risks/side effects and potential benefits and both and patient thought well of it. 04/27 patient much more clear today, with linear thinking. She feels the same. Feels that having gotten some sleep is very helpful. Discussed history thoroughly and OCD remains a component of her presentation, however much of it she is able to control. Patient would like to start lithium and fha underwriter agrees with plan. Will discontinue mirtazapine which has not proved helpful. Will continue with Viibryd however since it may very well be partially helpful And do not want to change multiple things at once; discussed ECT again and patient agrees to try medication management further before ECT.. 04/29: DC Nortriptyline. Start Doxepin 25 mg HS. Otherwise continue current management and treatment plan. Plan: CV q15min START [facility] 300mg qhs DC mirtazapine not helpful Continue Ambien 5mg as a p.r.n. Continue Viibryd 40 mg daily Continue pravastatin 20 mg daily Continue Amlodipine 5 mg daily Continue Buspirone [address] 03/26/2024 The ventricles are normal in size. Stable small right basal ganglia calcification.. Correction in history: Patient was on Lexapro in 2022 Regarding [place], Risks, side-effects and benefits reviewed with pt, including, but not limited to, damage to kidneys and thyroid; pt was educated to stay hydrated, to watch for symptoms of lithium toxicity (also discussed, including but not limited to nausea, tremor, confusion) and the need to stay away from OTC NSAIDs (specifics reviewed) aside from Tylenol. Reason for continued inpatient stay Substantial Risk for: harm to self, inability to function and rapid decompensation Time Spent With Patient Time: Total time managing care of this patient today ____ minutes.
[2024-04-29] MEDS: LORazepam 0.5 MG TABLET PO (14:22)
[2024-04-29] MEDS: Vilazodone HCL 40 MG TABLET PO (17:16)
[2024-04-29 20:00] VITALS: BP 112/57; PULSE 114; RESP 16; TEMP 36.5; O2SAT 94
[2024-04-29] MEDS: Zolpidem Tartrate 5 MG TABLET PO (20:08)
[2024-04-29] MEDS: Doxepin HCl 25 MG CAPSULE PO (20:08)
[2024-04-30 08:18] VITALS: BP 137/81; PULSE 93; RESP 20; TEMP 36.1; O2SAT 94
[2024-04-30] MEDS: Pravastatin Sodium 20 MG TABLET PO (08:50)
[2024-04-30] MEDS: amLODIPine Besylate 5 MG TABLET PO (08:50)
[2024-04-30] MEDS: busPIRone HCl 5 MG TABLET 15 MG PO ×2 (08:50→20:00)
--- NOTE | 2024-04-30 09:05 | P.PNPSI_ITS ---
Subjective Subjective Date of Service: 04/30/24 Reason For Visit: Insomnia/Anxiety/Confusion Interim History: Met with patient; discussed with team Patient reports she continues to have insomnia. Doxepin didn't help. She was very anxious saying she wants to go back to Nortriptyline and that it was better . Remeron hasn't been helpful. She is worried Ambien will have to be DCd on DC because it is partially helpful. Remains very anxious and depressed. Ambivalent. Perseverates. Review of Systems Review of Systems Constitutional : No Weight loss, No Fever, No Chills, No Night Sweats, No Fatigue, No Malaise ENT/Mouth : No Hearing loss, No Ear Pain, No Nasal Congestion, No Sinus Pain, No Hoarseness, No sore throat, No Rhinorrhea, No Swallowing Difficulty Eyes: No Eye Pain, No Swelling, No Redness, No Foreign Body, No Discharge, No Vision Changes Cardiovascular : No Chest Pain, No SOB, No Dyspnea on Exertion, No Orthopnea, No Edema, No Palpitations Respiratory : No Cough, No Sputum, No Wheezing, No Smoke Exposure, No Dyspnea Gastrointestinal : No Nausea, No Vomiting, No Diarrhea, No Constipation, No abdominal Pain, No Hematochezia, No Melena Genitourinary : no irregular bleeding, No Dysuria, No Urinary Frequency, No Hematuria, No Urinary Incontinence, No Urgency, No Flank Pain, No Urinary Flow Changes, No Hesitancy Musculoskeletal : No joint pain, No Myalgias, No Joint Swelling Skin : No Skin Lesions, No rash Neuro : No Weakness, No Numbness, No Paresthesias, No Loss of Consciousness, No Dizziness, No Headache Psych : No Anxiety/Panic, complaining of depression, no SI or HI, complaining of chronic insomnia Heme/Lymph: No Bruising, No Bleeding,No Lymphadenopathy Endocrine : No Polyuria, No Polydipsia, No Temperature Intolerance Mental Status Exam Mental Status Exam Narrative: Pt is alert and oriented; behavior is cooperative, anxious, but no longer confused; patient is not in distress; dressed in hospital attire with adequate hygiene; mood is described as anxious but a little better and affect congruent; eye contact appropriate; Speech is normal rate, volume and prosody and not pressured; psychomotor retardation present; thought process is goal directed but much more linear, still somewhat perseverative but does not seem forgetful; Thought content is on medication for sleep; tx; otherwise pertinent to relevant topics and without any delusional content, paranoid ideations or grandiosity; denies any SI/HI. There is no evidence of perceptual disturbance and denies AVH. Patients insight and judgment impaired but improving Diagnostics Vital Signs (24Hr): Vital Signs - 24 hr 04/29/24 20:00 04/30/24 08:18 Temperature 97.7 F 96.9 F Pulse Rate 114 H 93 Respiratory Rate 16 20 Blood Pressure 112/57 L 137/81 Pulse Oximetry 94 94 Oxygen Delivery Method Room Air Room Air BMI result Body Mass Index 24.4 Labs 04/24/24 16:52 04/24/24 16:52 Medications Medications Current Medications Acetaminophen (Acetaminophen 325 Mg Tablet) 650 mg PO Q6H PRN PRN Reason: Headache/Pain Mild Scale (1-3) Al Hydroxide/Mg Hydroxide (Magnesium Hydrox/Alum Hydrox 30 Ml Oral.Susp) 30 ml PO Q6H PRN PRN Reason: Heartburn/Nausea Last Admin: 04/25/24 08:50 Dose: 30 ml Amlodipine Besylate (Amlodipine Besylate 5 Mg Tablet) 5 mg PO DAILY [facility]; Protocol Last Admin: 04/29/24 08:38 Dose: 5 mg Buspirone HCl (Buspirone Hcl 5 Mg Tablet) 15 mg PO BID [facility] Last Admin: 04/29/24 20:08 Dose: 15 mg Doxepin HCl (Doxepin Hcl 25 Mg Capsule) 25 mg PO BEDTIME [facility] Last Admin: 04/29/24 20:08 Dose: 25 mg Lorazepam (Lorazepam 0.5 Mg Tablet) 0.5 mg PO Q8H PRN PRN Reason: moderate anxiety Last Admin: 04/29/24 14:22 Dose: 0.5 mg Magnesium Hydroxide (Milk Of Magnesia 30 Ml Oral.Susp) 30 ml PO DAILY PRN PRN Reason: Constipation Olanzapine (Olanzapine 5 Mg Tablet) 5 mg PO TID PRN PRN Reason: Restlessness Last Admin: 04/28/24 13:37 Dose: 5 mg Ondansetron HCl (Ondansetron Odt 4 Mg Tab.Rapdis) 4 mg TRANSLINGU Q6H PRN PRN Reason: Nausea and Vomiting Pravastatin Sodium (Pravastatin Sodium 20 Mg Tablet) 20 mg PO DAILY [facility] Last Admin: 04/29/24 08:38 Dose: 20 mg Vilazodone HCl (Vilazodone Hcl 40 Mg Tablet) 40 mg PO DAILY@1700 [facility] Last Admin: 04/29/24 17:16 Dose: 40 mg Zolpidem Tartrate (Zolpidem Tartrate 5 Mg Tablet) 5 mg PO BEDTIME PRN PRN Reason: Insomnia Last Admin: 04/29/24 20:08 Dose: 5 mg Allergies Allergies Allergy/AdvReac Type Severity Reaction Status Date / Time No Known Allergies Allergy Verified 04/24/24 16:36 [No Known Allergies*] Assessment & Plan Assessment & Plan (1) MDD (major depressive disorder), recurrent severe, without psychosis: Status: Acute Code(s): F33.2 - Major depressive disorder, recurrent severe without psychotic features (2) OCD (obsessive compulsive disorder): Status: Acute Code(s): F42.9 - Obsessive-compulsive disorder, unspecified (3) Chronic insomnia: Status: Acute Code(s): F51.04 - Psychophysiologic insomnia Plan HPI: Patient is a 68-year-old woman with history of depression, chronic insomnia, SI, anxiety, OCD, pre diabetes, HTN, and osteoporosis who presents for continued insomnia over the past 2 weeks. Patient was discharged on 04/11 after a very brief hospitalization for concern regarding an accidental overdose. Over the next 2 weeks she presented to the emergency room 3 times, on 04/15, 04/21 and on 04/24 all for insomnia: On 04/15 psychiatric consult increase Zyprexa to 5 mg q.h.s. and added trazodone On 04/21 psychiatric consult reports reports pt appears more forgetful, repeating information, ambivalent about decisions (such as wanting to go to the hospital, but then wanting to go home). Pt reports she is not able to sleep. However, reports that he sees her sleeping. reports pt appears more impulsive, anxious. Both denied suicidal ideation. No signs of psychosis or delusional content. [facility], and started patient on Lunesta Patient returns now continuing to report that she has not been able to sleep and that she is very anxious. She reports she just lies in bed, thinking about not sleeping; during the day she is walking around tired; she denies any manic symptoms. She starts to have worries that maybe she will lose her mind if she does not sleep. Initially she says she has not slept for the past 3 days on further inquiry she says maybe it has been longer, maybe it has been for 2 weeks. She denies depression, any SI or AVH. She appears somewhat confused, asking some questions over and over, and unclear about medication history. She agrees to take Ambien tonight and have her come in for a family meeting tomorrow to help provide more information for her presenting illness. Impression/clinical reasoning: Patient has long history of depression however it it seems that it is only become severe over the last 2 years; multiple SSRI/SNRI trials have been ineffective or if helpful, not sustainable so She appears confused to some degree which is different than 2 weeks ago and seems more likely due to lack of sleep then dementia; however dementia does remain something to explore Today will start with Ambien just to get patient some sleep. Will discuss further treatment plans with her tomorrow Hospital course: 04/26 Patient did sleep last night with Ambien 5 mg; did not need repeat -still seems confused Fam reports that patient had knee surgery around January and possibly due to anesthesia, patient got worsening depression. Discussed that over the past several months, february and March, patient has been seemingly very depressed and anxious, crying spells all day, feeling hopeless, saying things like lock me up asking to go to the emergency room with then refusing to... At some point she got T MS. She continued to have insomnia, low energy... Her agrees that she has insomnia however he thinks she is sleeping more than she reports; she however disagree saying she is just lying in bed with her eyes closed, not moving but she is completely awake. Reviewed history of medications, timeline of depression; seems that patient was overall able to keep depression contained for most of her life on Prozac and then Paxil. Patient remains confused, asking the same question over and over. She kept saying that [facility] stopped her mirtazapine and that this was helping, though it does not seem was helping that much given depression over the past several months; at any rate she Agrees to restart mirtazapine tonight to see if it will help asleep but will otherwise use Ambien. Also discussed ECT, reviewed risks/side effects and potential benefits and both and patient thought well of it. 04/27 patient much more clear today, with linear thinking. She feels the same. Feels that having gotten some sleep is very helpful. Discussed history thoroughly and OCD remains a component of her presentation, however much of it she is able to control. Patient would like to start lithium and continuity writer agrees with plan. Will discontinue mirtazapine which has not proved helpful. Will continue with Viibryd however since it may very well be partially helpful And do not want to change multiple things at once; discussed ECT again and patient agrees to try medication management further before ECT.. 04/28 DC [place]: feels had side-effect and afraid of sound of [place]; wants to go to [facility] instead and agrees to Nortyptyline 04/30: Doxepin didn't help with sleep and wants to go back to Nortriptyline which was ordered. Otherwise continue current management and treatment plan. Plan: CV q15min START Nortyptyline 75mg for depression, anxiety, insomnia DC [place] ER does not want; anxious about, maybe side-effect DC mirtazapine not helpful Continue Ambien 5mg as a p.r.n. Continue Viibryd 40 mg daily Continue pravastatin 20 mg daily Continue Amlodipine 5 mg daily Continue Buspirone [address] 03/26/2024 The ventricles are normal in size. Stable small right basal ganglia calcification.. Correction in history: Patient was on Lexapro in 2022 Regarding [place], Risks, side-effects and benefits reviewed with pt, including, but not limited to, damage to kidneys and thyroid; pt was educated to stay hydrated, to watch for symptoms of lithium toxicity (also discussed, including but not limited to nausea, tremor, confusion) and the need to stay away from OTC NSAIDs (specifics reviewed) aside from Tylenol. Reason for continued inpatient stay Substantial Risk for: inability to function and rapid decompensation Time Spent With Patient Time: Total time managing care of this patient today ____ minutes.
[2024-04-30] MEDS: LORazepam 0.5 MG TABLET PO ×2 (14:43→20:43)
[2024-04-30] MEDS: Vilazodone HCL 40 MG TABLET PO (17:36)
[2024-04-30 20:00] VITALS: BP 114/78; PULSE 110; RESP 20; TEMP 36.3; O2SAT 96
[2024-04-30] MEDS: Zolpidem Tartrate 5 MG TABLET PO (20:01)
[2024-04-30] MEDS: Nortriptyline HCl 25 MG CAPSULE PO (20:01)
[2024-04-30] MEDS: OLANZapine 5 MG TABLET PO (20:43)
[2024-05-01 08:00] VITALS: BP 135/83; PULSE 94; RESP 18; TEMP 36.3; O2SAT 95
[2024-05-01] MEDS: busPIRone HCl 5 MG TABLET 15 MG PO ×2 (08:47→20:18)
[2024-05-01] MEDS: amLODIPine Besylate 5 MG TABLET PO (08:47)
[2024-05-01] MEDS: Pravastatin Sodium 20 MG TABLET PO (08:47)
--- NOTE | 2024-05-01 09:52 | HO.PSYCHPN ---
Subjective Subjective Date of Service: 05/01/24 Reason For Visit: Insomnia/Anxiety/Confusion Interim History: Met with patient; discussed with team; reviewed chart Patient reports that mood is better but she still very anxious and says she woke up at 03:00 and can not fall back asleep; staff however reported that she was sleeping though patient adamantly denies this. Patient does remain exceedingly anxious, asking to see investigative writer up to 10 times a day, asking investigative writer the same questions; investigative writer again clarifies and this is not forgetfulness but patient says he just is worried that she did not say it or hear exactly like she wanted to, citing OCD type symptoms. Over the weekend patient's nortriptyline was stopped in favor of doxepin however that did not help with insomnia so she was put back on nortriptyline; she agrees to increasing it now. Discussed Zyprexa and patient wondered if that can help with sleep. Increase Nortyrptyline 50mg Mental Status Exam Mental Status Exam Narrative: Pt is alert and oriented; behavior is cooperative, anxious, but no longer confused; patient is not in distress; dressed in hospital attire with adequate hygiene; mood is described as anxious but a little better and affect congruent; eye contact appropriate; Speech is normal rate, volume and prosody and not pressured; psychomotor retardation present; some psychomotor agitation present; thought process is goal directed but much more linear, still somewhat perseverative but does not seem forgetful; Thought content is on medication for sleep; tx; otherwise pertinent to relevant topics and without any delusional content, paranoid ideations or grandiosity; denies any SI/HI. There is no evidence of perceptual disturbance and denies AVH. Patients insight and judgment impaired but improving Diagnostics Vital Signs (24Hr): Vital Signs - 24 hr 04/30/24 20:00 05/01/24 08:00 Temperature 97.4 F 97.4 F Pulse Rate 110 H 94 Respiratory Rate 20 18 Blood Pressure 114/78 135/83 Pulse Oximetry 96 95 Oxygen Delivery Method Room Air Room Air BMI result Body Mass Index 24.4 Labs 04/24/24 16:52 04/24/24 16:52 Medications Medications Current Medications Acetaminophen (Acetaminophen 325 Mg Tablet) 650 mg PO Q6H PRN PRN Reason: Headache/Pain Mild Scale (1-3) Al Hydroxide/Mg Hydroxide (Magnesium Hydrox/Alum Hydrox 30 Ml Oral.Susp) 30 ml PO Q6H PRN PRN Reason: Heartburn/Nausea Last Admin: 04/25/24 08:50 Dose: 30 ml Amlodipine Besylate (Amlodipine Besylate 5 Mg Tablet) 5 mg PO DAILY [facility]CLUDE 234 BEDS AT THE [facility]; Protocol Last Admin: 05/01/24 08:47 Dose: 5 mg Buspirone HCl (Buspirone Hcl 5 Mg Tablet) 15 mg PO BID [facility]S INCLUDE 234 BEDS AT THE [facility] Last Admin: 05/01/24 08:47 Dose: 15 mg Lorazepam (Lorazepam 0.5 Mg Tablet) 0.5 mg PO Q8H PRN PRN Reason: moderate anxiety Last Admin: 04/30/24 20:43 Dose: 0.5 mg Magnesium Hydroxide (Milk Of Magnesia 30 Ml Oral.Susp) 30 ml PO DAILY PRN PRN Reason: Constipation Nortriptyline HCl (Nortriptyline Hcl 25 Mg Capsule) 25 mg PO BEDTIME COUNTS INCLUDE 234 BEDS AT [facility] Last Admin: 04/30/24 20:01 Dose: 25 mg Olanzapine (Olanzapine 5 Mg Tablet) 5 mg PO TID PRN PRN Reason: Restlessness Last Admin: 04/30/24 20:43 Dose: 5 mg Ondansetron HCl (Ondansetron Odt 4 Mg Tab.Rapdis) 4 mg TRANSLINGU Q6H PRN PRN Reason: Nausea and Vomiting Pravastatin Sodium (Pravastatin Sodium 20 Mg Tablet) 20 mg PO DAILY [facility]CLUDE 234 BEDS AT [facility] Last Admin: 05/01/24 08:47 Dose: 20 mg Vilazodone HCl (Vilazodone Hcl 40 Mg Tablet) 40 mg PO DAILY@1700 [facility] 234 BEDS AT [facility] Last Admin: 04/30/24 17:36 Dose: 40 mg Zolpidem Tartrate (Zolpidem Tartrate 5 Mg Tablet) 5 mg PO BEDTIME PRN PRN Reason: Insomnia Last Admin: 04/30/24 20:01 Dose: 5 mg Allergies Allergies Allergy/AdvReac Type Severity Reaction Status Date / Time No Known Allergies Allergy Verified 04/24/24 16:36 [No Known Allergies*] Assessment & Plan Assessment & Plan (1) MDD (major depressive disorder), recurrent severe, without psychosis: Status: Acute Code(s): F33.2 - Major depressive disorder, recurrent severe without psychotic features (2) OCD (obsessive compulsive disorder): Status: Acute Code(s): F42.9 - Obsessive-compulsive disorder, unspecified (3) Chronic insomnia: Status: Acute Code(s): F51.04 - Psychophysiologic insomnia Plan HPI: Patient is a 68-year-old woman with history of depression, chronic insomnia, SI, anxiety, OCD, pre diabetes, HTN, and osteoporosis who presents for continued insomnia over the past 2 weeks. Patient was discharged on 04/11 after a very brief hospitalization for concern regarding an accidental overdose. Over the next 2 weeks she presented to the emergency room 3 times, on 04/15, 04/21 and on 04/24 all for insomnia: On 04/15 psychiatric consult increase Zyprexa to 5 mg q.h.s. and added trazodone On 04/21 psychiatric consult reports reports pt appears more forgetful, repeating information, ambivalent about decisions (such as wanting to go to the hospital, but then wanting to go home). Pt reports she is not able to sleep. However, reports that he sees her sleeping. reports pt appears more impulsive, anxious. Both denied suicidal ideation. No signs of psychosis or delusional content. Referred [facility] to [facility], and started patient on Lunesta Patient returns now continuing to report that she has not been able to sleep and that she is very anxious. She reports she just lies in bed, thinking about not sleeping; during the day she is walking around tired; she denies any manic symptoms. She starts to have worries that maybe she will lose her mind if she does not sleep. Initially she says she has not slept for the past 3 days on further inquiry she says maybe it has been longer, maybe it has been for 2 weeks. She denies depression, any SI or AVH. She appears somewhat confused, asking some questions over and over, and unclear about medication history. She agrees to take Anand muñoz and have her come in for a family meeting tomorrow to help provide more information for her presenting illness. Impression/clinical reasoning: Patient has long history of depression however it it seems that it is only become severe over the last 2 years; multiple SSRI/SNRI trials have been ineffective or if helpful, not sustainable so She appears confused to some degree which is different than 2 weeks ago and seems more likely due to lack of sleep then dementia; however dementia does remain something to explore Today will start with Anand just to get patient some sleep. Will discuss further treatment plans with her tomorrow Hospital course: 04/26 Patient did sleep last night with Ambien 5 mg; did not need repeat -still seems confused Fam reports that patient had knee surgery around January and possibly due to anesthesia, patient got worsening depression. Discussed that over the past several months, february and March, patient has been seemingly very depressed and anxious, crying spells all day, feeling hopeless, saying things like lock me up asking to go to the emergency room with then refusing to... At some point she got T MS. She continued to have insomnia, low energy... Her agrees that she has insomnia however he thinks she is sleeping more than she reports; she however disagree saying she is just lying in bed with her eyes closed, not moving but she is completely awake. Reviewed history of medications, timeline of depression; seems that patient was overall able to keep depression contained for most of her life on Prozac and then Paxil. Patient remains confused, asking the same question over and over. She kept saying that [facility] stopped her mirtazapine and that this was helping, though it does not seem was helping that much given depression over the past several months; at any rate she Agrees to restart mirtazapine tonight to see if it will help asleep but will otherwise use Ambien. Also discussed ECT, reviewed risks/side effects and potential benefits and both and patient thought well of it. 04/27 patient much more clear today, with linear thinking. She feels the same. Feels that having gotten some sleep is very helpful. Discussed history thoroughly and OCD remains a component of her presentation, however much of it she is able to control. Patient would like to start lithium and investigative writer agrees with plan. Will discontinue mirtazapine which has not proved helpful. Will continue with Viibryd however since it may very well be partially helpful And do not want to change multiple things at once; discussed ECT again and patient agrees to try medication management further before ECT.. 04/28 DC [place]: feels had side-effect and afraid of sound of [place]; wants to go to [facility] instead and agrees to Nortyptyline 04/30: Doxepin didn't help with sleep and wants to go back to Nortriptyline which was ordered. Otherwise continue current management and treatment plan. 05/01 Patient reports that mood is better but she still very anxious and says she woke up at 03:00 and can not fall back asleep; staff however reported that she was sleeping though patient adamantly denies this. Patient does remain exceedingly anxious, asking to see investigative writer up to 10 times a day, asking investigative writer the same questions; investigative writer again clarifies and this is not forgetfulness but patient says he just is worried that she did not say it or hear exactly like she wanted to, citing OCD type symptoms. Over the weekend patient's nortriptyline was stopped in favor of doxepin however that did not help with insomnia so she was put back on nortriptyline; she agrees to increasing it now. Discussed Zyprexa and patient wondered if that can help with sleep. Increase Nortyrptyline 50mg Plan: CV q15min will add zyprexa at bedtime increase Nortyptyline to 50mg for depression, anxiety, insomnia DC [place] ER does not want; anxious about, maybe side-effect [place] mirtazapine not helpful Continue Ambien 5mg as a p.r.n. Continue Viibryd 40 mg daily Continue pravastatin 20 mg daily Continue Amlodipine 5 mg daily Continue Buspirone [address] 03/26/2024 The ventricles are normal in size. Stable small right basal ganglia calcification.. Correction in history: Patient was on Lexapro in 2022 Regarding [place], Risks, side-effects and benefits reviewed with pt, including, but not limited to, damage to kidneys and thyroid; pt was educated to stay hydrated, to watch for symptoms of lithium toxicity (also discussed, including but not limited to nausea, tremor, confusion) and the need to stay away from OTC NSAIDs (specifics reviewed) aside from Tylenol. Patient educated on: diagnosis, medication risk/benefits and therapeutic strategies Informed Consent: understands and further education needed Reason for continued inpatient stay Substantial Risk for: rapid decompensation Time Spent With Patient Time: Total time managing care of this patient today ____ minutes.
[2024-05-01] MEDS: Vilazodone HCL 40 MG TABLET PO (16:38)
[2024-05-01 20:00] VITALS: BP 166/96; PULSE 104; TEMP 36.4; O2SAT 94
[2024-05-01 20:15] VITALS: BP 130/79; PULSE 115; TEMP 36.5
[2024-05-01] MEDS: Nortriptyline HCl 25 MG CAPSULE 50 MG PO (20:18)
[2024-05-01] MEDS: Zolpidem Tartrate 5 MG TABLET PO (20:18)
[2024-05-01] MEDS: OLANZapine 2.5 MG TABLET PO (21:45)
[2024-05-02 08:00] VITALS: PULSE 83; RESP 18; TEMP 36.3; O2SAT 97
[2024-05-02 08:43] VITALS: BP 162/97
[2024-05-02] MEDS: amLODIPine Besylate 5 MG TABLET PO (08:43)
[2024-05-02] MEDS: busPIRone HCl 5 MG TABLET 15 MG PO ×2 (08:43→19:57)
[2024-05-02] MEDS: Pravastatin Sodium 20 MG TABLET PO (08:43)
[2024-05-02] MEDS: LORazepam 0.5 MG TABLET PO (08:48)
[2024-05-02] MEDS: OLANZapine 2.5 MG TABLET PO ×3 (09:04→18:45)
[2024-05-02 11:52] VITALS: BP 134/76; PULSE 102; RESP 15; O2SAT 95
[2024-05-02] MEDS: Vilazodone HCL 40 MG TABLET PO (17:45)
--- NOTE | 2024-05-02 19:16 | P.PNPSI_ITS ---
Subjective Subjective Date of Service: 05/02/24 Reason For Visit: Insomnia/Anxiety/Confusion Interim History: Met with patient; discussed with team Patient very anxious, asking to meet with underwriter multiple times a day. Says she woke up at 3 in the morning and could not get back to sleep. Patient says I think I am falling apart... I am afraid I am going to lose my mind.. Patient perseverating on medication that will help her sleep, worrying that Ambien is not helping as much as it used to. She said she did not fall asleep until 1 hour after taking Ambien where the 1st few times it worked within 10 minutes. Discussed daytime anxiety patient agrees to start Zyprexa 2.5 mg b.i.d. Mental Status Exam Mental Status Exam Narrative: Pt is alert and oriented; behavior is cooperative, anxious, but no longer confused; patient is not in distress; dressed in hospital attire with adequate hygiene; mood is described as I'm falling apart and affect congruent, anxious; eye contact appropriate; Speech is normal rate, volume and prosody and not pressured; psychomotor retardation present; some psychomotor agitation present; thought process is goal directed but much more linear, still somewhat perseverative but does not seem forgetful; Thought content is on medication for sleep; tx; otherwise pertinent to relevant topics and without any delusional content, paranoid ideations or grandiosity; denies any SI/HI. There is no evidence of perceptual disturbance and denies AVH. Patients insight and judgment impaired Diagnostics Vital Signs (24Hr): Vital Signs - 24 hr 05/01/24 20:00 05/01/24 20:15 05/02/24 08:00 Temperature 97.6 F 97.7 F 97.4 F Pulse Rate 104 H 115 H 83 Respiratory Rate 18 Blood Pressure 166/96 H 130/79 Pulse Oximetry 94 97 Oxygen Delivery Method Room Air Room Air 05/02/24 08:43 05/02/24 11:52 Temperature Pulse Rate 102 H Respiratory Rate 15 Blood Pressure 162/97 H 134/76 Pulse Oximetry 95 Oxygen Delivery Method BMI result Body Mass Index 24.4 Labs 04/24/24 16:52 04/24/24 16:52 Medications Medications Current Medications Acetaminophen (Acetaminophen 325 Mg Tablet) 650 mg PO Q6H PRN PRN Reason: Headache/Pain Mild Scale (1-3) Al Hydroxide/Mg Hydroxide (Magnesium Hydrox/Alum Hydrox 30 Ml Oral.Susp) 30 ml PO Q6H PRN PRN Reason: Heartburn/Nausea Last Admin: 04/25/24 08:50 Dose: 30 ml Amlodipine Besylate (Amlodipine Besylate 5 Mg Tablet) 5 mg PO DAILY [facility]; Protocol Last Admin: 05/02/24 08:43 Dose: 5 mg Buspirone HCl (Buspirone Hcl 5 Mg Tablet) 15 mg PO BID [facility] Last Admin: 05/02/24 08:43 Dose: 15 mg Lorazepam (Lorazepam 0.5 Mg Tablet) 0.5 mg PO Q8H PRN PRN Reason: moderate anxiety Last Admin: 05/02/24 08:48 Dose: 0.5 mg Magnesium Hydroxide (Milk Of Magnesia 30 Ml Oral.Susp) 30 ml PO DAILY PRN PRN Reason: Constipation Nortriptyline HCl (Nortriptyline Hcl 25 Mg Capsule) 50 mg PO BEDTIME [facility] Last Admin: 05/01/24 20:18 Dose: 50 mg Olanzapine (Olanzapine 2.5 Mg Tablet) 2.5 mg PO TID PRN PRN Reason: Restlessness Last Admin: 05/02/24 18:45 Dose: 2.5 mg Olanzapine (Olanzapine 10 Mg Tablet) 10 mg PO BEDTIME [facility] Olanzapine (Olanzapine 5 Mg Tablet) 5 mg PO BEDTIME PRN PRN Reason: continued insomnia Olanzapine (Olanzapine 2.5 Mg Tablet) 2.5 mg PO BID@0900,1300 [facility] Ondansetron HCl (Ondansetron Odt 4 Mg Tab.Rapdis) 4 mg TRANSLINGU Q6H PRN PRN Reason: Nausea and Vomiting Pravastatin Sodium (Pravastatin Sodium 20 Mg Tablet) 20 mg PO DAILY [facility] Last Admin: 05/02/24 08:43 Dose: 20 mg Vilazodone HCl (Vilazodone Hcl 40 Mg Tablet) 40 mg PO DAILY@1700 [facility] Last Admin: 05/02/24 17:45 Dose: 40 mg Zolpidem Tartrate (Zolpidem Tartrate 5 Mg Tablet) 5 mg PO BEDTIME PRN PRN Reason: Insomnia IF zyprexa not helpfu Allergies Allergies Allergy/AdvReac Type Severity Reaction Status Date / Time No Known Allergies Allergy Verified 04/24/24 16:36 [No Known Allergies*] Assessment & Plan Assessment & Plan (1) MDD (major depressive disorder), recurrent severe, without psychosis: Status: Acute Code(s): F33.2 - Major depressive disorder, recurrent severe without psychotic features (2) OCD (obsessive compulsive disorder): Status: Acute Code(s): F42.9 - Obsessive-compulsive disorder, unspecified (3) Chronic insomnia: Status: Acute Code(s): F51.04 - Psychophysiologic insomnia Plan HPI: Patient is a 68-year-old woman with history of depression, chronic insomnia, SI, anxiety, OCD, pre diabetes, HTN, and osteoporosis who presents for continued insomnia over the past 2 weeks. Patient was discharged on 04/11 after a very brief hospitalization for concern regarding an accidental overdose. Over the next 2 weeks she presented to the emergency room 3 times, on 04/15, 04/21 and on 04/24 all for insomnia: On 04/15 psychiatric consult increase Zyprexa to 5 mg q.h.s. and added trazodone On 04/21 psychiatric consult reports reports pt appears more forgetful, repeating information, ambivalent about decisions (such as wanting to go to the hospital, but then wanting to go home). Pt reports she is not able to sleep. However, reports that he sees her sleeping. reports pt appears more impulsive, anxious. Both denied suicidal ideation. No signs of psychosis or delusional content. [facility], and started patient on Lunesta Patient returns now continuing to report that she has not been able to sleep and that she is very anxious. She reports she just lies in bed, thinking about not sleeping; during the day she is walking around tired; she denies any manic symptoms. She starts to have worries that maybe she will lose her mind if she does not sleep. Initially she says she has not slept for the past 3 days on further inquiry she says maybe it has been longer, maybe it has been for 2 weeks. She denies depression, any SI or AVH. She appears somewhat confused, asking some questions over and over, and unclear about medication history. She agrees to take Anahyien wanda and have her come in for a family meeting tomorrow to help provide more information for her presenting illness. Impression/clinical reasoning: Patient has long history of depression however it it seems that it is only become severe over the last 2 years; multiple SSRI/SNRI trials have been ineffective or if helpful, not sustainable so She appears confused to some degree which is different than 2 weeks ago and seems more likely due to lack of sleep then dementia; however dementia does remain something to explore Today will start with Ambien just to get patient some sleep. Will discuss further treatment plans with her tomorrow Hospital course: 04/26 Patient did sleep last night with Ambien 5 mg; did not need repeat -still seems confused Fam reports that patient had knee surgery around January and possibly due to anesthesia, patient got worsening depression. Discussed that over the past several months, february and March, patient has been seemingly very depressed and anxious, crying spells all day, feeling hopeless, saying things like lock me up asking to go to the emergency room with then refusing to... At some point she got T MS. She continued to have insomnia, low energy... Her agrees that she has insomnia however he thinks she is sleeping more than she reports; she however disagree saying she is just lying in bed with her eyes closed, not moving but she is completely awake. Reviewed history of medications, timeline of depression; seems that patient was overall able to keep depression contained for most of her life on Prozac and then Paxil. Patient remains confused, asking the same question over and over. She kept saying that [facility] stopped her mirtazapine and that this was helping, though it does not seem was helping that much given depression over the past several months; at any rate she Agrees to restart mirtazapine tonight to see if it will help asleep but will otherwise use Ambien. Also discussed ECT, reviewed risks/side effects and potential benefits and both and patient thought well of it. 04/27 patient much more clear today, with linear thinking. She feels the same. Feels that having gotten some sleep is very helpful. Discussed history thoroughly and OCD remains a component of her presentation, however much of it she is able to control. Patient would like to start lithium and underwriter agrees with plan. Will discontinue mirtazapine which has not proved helpful. Will continue with Viibryd however since it may very well be partially helpful And do not want to change multiple things at once; discussed ECT again and patient agrees to try medication management further before ECT.. 04/28 DC [place]: feels had side-effect and afraid of sound of [place]; wants to go to [facility] instead and agrees to Nortyptyline 04/30: Doxepin didn't help with sleep and wants to go back to Nortriptyline which was ordered. Otherwise continue current management and treatment plan. 05/01 Patient reports that mood is better but she still very anxious and says she woke up at 03:00 and can not fall back asleep; staff however reported that she was sleeping though patient adamantly denies this. Patient does remain exceedingly anxious, asking to see underwriter up to 10 times a day, asking underwriter the same questions; underwriter again clarifies and this is not forgetfulness but patient says he just is worried that she did not say it or hear exactly like she wanted to, citing OCD type symptoms. Over the weekend patient's nortriptyline was stopped in favor of doxepin however that did not help with insomnia so she was put back on nortriptyline; she agrees to increasing it now. Discussed Zyprexa and patient wondered if that can help with sleep. Increase Nortyrptyline 50mg 05/02 Very anxious, says Ambien not working very well, took an hour to fall asleep, feels that she is decompensating; agrees to scheduling low-dose Zyprexa to help with anxiety -screened for possible excess serotonin; patient denies loose stool, any muscle stiffness or rigidity, tremor, diaphoresis; no flushing -will likely increase nortriptyline but out of abundance of caution, will likely taper off and possibly DC BuSpar since patient said it is not working and want to avoid too much serotonin Plan: CV q15min Start Zyprexa 2.5 mg b.i.d. 0900/1300 to help deal with worsening daytime anxiety Start zyprexa 10 mg at bedtime with 5 mg p.r.n. for continued insomnia P.r.n. Ambien if patient does not fall asleep with Zyprexa increase Nortyptyline to 50mg for depression, anxiety, insomnia DC [place] does not want; anxious about, maybe side-effect DC mirtazapine not helpful Continue Ambien 5mg as a p.r.n. Continue Viibryd 40 mg daily Continue pravastatin 20 mg daily Continue Amlodipine 5 mg daily Continue Buspirone [address] 03/26/2024 The ventricles are normal in size. Stable small right basal ganglia calcification.. Correction in history: Patient was on Lexapro in 2022 Regarding [place], Risks, side-effects and benefits reviewed with pt, including, but not limited to, damage to kidneys and thyroid; pt was educated to stay hydrated, to watch for symptoms of lithium toxicity (also discussed, including but not limited to nausea, tremor, confusion) and the need to stay away from OTC NSAIDs (specifics reviewed) aside from Tylenol. Patient educated on: diagnosis and medication risk/benefits Informed Consent: understands and further education needed Reason for continued inpatient stay Substantial Risk for: inability to function and rapid decompensation Time Spent With Patient Time: Total time managing care of this patient today ____ minutes.
[2024-05-02] MEDS: OLANZapine 10 MG TABLET PO (19:56)
[2024-05-02] MEDS: Zolpidem Tartrate 5 MG TABLET PO (19:57)
[2024-05-02] MEDS: Nortriptyline HCl 25 MG CAPSULE 50 MG PO (19:57)
[2024-05-02 19:59] VITALS: BP 138/75; PULSE 105; RESP 18; TEMP 36.4; O2SAT 95
[2024-05-03 08:00] VITALS: BP 132/76; PULSE 95; RESP 16; TEMP 36.7; O2SAT 95
[2024-05-03] MEDS: busPIRone HCl 5 MG TABLET 15 MG PO ×2 (08:24→20:04)
[2024-05-03] MEDS: Pravastatin Sodium 20 MG TABLET PO (08:25)
[2024-05-03] MEDS: amLODIPine Besylate 5 MG TABLET PO (08:25)
[2024-05-03] MEDS: OLANZapine 2.5 MG TABLET PO ×3 (08:26→14:31)
--- NOTE | 2024-05-03 16:24 | HO.PSYCHPN ---
Subjective Subjective Date of Service: 05/03/24 Reason For Visit: Insomnia/Anxiety/Confusion Interim History: Met with patient; discussed with team Patient says she asked for Ambien along with Zyprexa and though she did sleep, understands that because of this it is not clear which medication helped. Delivery Agent discussed this with patient who agreed to only take Zyprexa 1st and see how it helps; senior grant writer clearly marked Ambien in [employer] to be only given if patient remained with insomnia after Zyprexa doses. Patient says that 1 time she was prescribed Zyprexa 10 mg and since it did not help she on her own took a double dose and with Zyprexa 20 mg she slept on it. She says she was hesitant to let this senior grant writer know because it was not prescribed this way and she felt embarrassed about it. Because of this, she would like to try Zyprexa 20 mg again as it helped in the past; she also would like nortriptyline increased to which senior grant writer agrees; she agrees with lowering and getting off BuSpar. -daytime Zyprexa 2.5 b.i.d. is helping with anxiety Mental Status Exam Mental Status Exam Narrative: Pt is alert and oriented; behavior is cooperative, anxious; patient is not in distress; dressed in casual attire with adequate hygiene; mood is described as ok...anxious and affect congruent, anxious but less so; eye contact appropriate; Speech is normal rate, volume and prosody and not pressured; some psychomotor retardation present but less so; only mild, intermittent psychomotor agitation present; thought process is goal directed though perseverates on medication; Thought content is on medication for sleep; tx; otherwise pertinent to relevant topics and without any delusional content, paranoid ideations or grandiosity; denies any SI/HI. There is no evidence of perceptual disturbance and denies AVH. Patients insight and judgment impaired but improving Diagnostics Vital Signs (24Hr): Vital Signs - 24 hr 05/02/24 19:59 05/03/24 08:00 Temperature 97.5 F 98.0 F Pulse Rate 105 H 95 Respiratory Rate 18 16 Blood Pressure 138/75 132/76 Pulse Oximetry 95 95 Oxygen Delivery Method Room Air BMI result Body Mass Index 24.4 Labs 04/24/24 16:52 04/24/24 16:52 Medications Medications Current Medications Acetaminophen (Acetaminophen 325 Mg Tablet) 650 mg PO Q6H PRN PRN Reason: Headache/Pain Mild Scale (1-3) Al Hydroxide/Mg Hydroxide (Magnesium Hydrox/Alum Hydrox 30 Ml Oral.Susp) 30 ml PO Q6H PRN PRN Reason: Heartburn/Nausea Last Admin: 04/25/24 08:50 Dose: 30 ml Amlodipine Besylate (Amlodipine Besylate 5 Mg Tablet) 5 mg PO DAILY [facility]; Protocol Last Admin: 05/03/24 08:25 Dose: 5 mg Buspirone HCl (Buspirone Hcl 5 Mg Tablet) 15 mg PO BID [facility] Last Admin: 05/03/24 08:24 Dose: 15 mg Lorazepam (Lorazepam 0.5 Mg Tablet) 0.5 mg PO Q8H PRN PRN Reason: moderate anxiety Last Admin: 05/02/24 08:48 Dose: 0.5 mg Magnesium Hydroxide (Milk Of Magnesia 30 Ml Oral.Susp) 30 ml PO DAILY PRN PRN Reason: Constipation Nortriptyline HCl (Nortriptyline Hcl 25 Mg Capsule) 50 mg PO BEDTIME [facility] Last Admin: 05/02/24 19:57 Dose: 50 mg Olanzapine (Olanzapine 2.5 Mg Tablet) 2.5 mg PO TID PRN PRN Reason: Restlessness Last Admin: 05/03/24 14:31 Dose: 2.5 mg Olanzapine (Olanzapine 2.5 Mg Tablet) 2.5 mg PO BID@0900,1300 [facility] Last Admin: 05/03/24 12:42 Dose: 2.5 mg Olanzapine (Olanzapine 5 Mg Tablet) 5 mg PO BEDTIME PRN PRN Reason: GIVE FIRST if Continued insomn Ondansetron HCl (Ondansetron Odt 4 Mg Tab.Rapdis) 4 mg TRANSLINGU Q6H PRN PRN Reason: Nausea and Vomiting Pravastatin Sodium (Pravastatin Sodium 20 Mg Tablet) 20 mg PO DAILY [facility] Last Admin: 05/03/24 08:25 Dose: 20 mg Vilazodone HCl (Vilazodone Hcl 40 Mg Tablet) 40 mg PO DAILY@1700 [facility] Last Admin: 05/02/24 17:45 Dose: 40 mg Zolpidem Tartrate (Zolpidem Tartrate 5 Mg Tablet) 5 mg PO BEDTIME PRN PRN Reason: WAIT;give IF zyprexa not help Allergies Allergies Allergy/AdvReac Type Severity Reaction Status Date / Time No Known Allergies Allergy Verified 04/24/24 16:36 [No Known Allergies*] Assessment & Plan Assessment & Plan (1) MDD (major depressive disorder), recurrent severe, without psychosis: Status: Acute Code(s): F33.2 - Major depressive disorder, recurrent severe without psychotic features (2) OCD (obsessive compulsive disorder): Status: Acute Code(s): F42.9 - Obsessive-compulsive disorder, unspecified (3) Chronic insomnia: Status: Acute Code(s): F51.04 - Psychophysiologic insomnia Plan HPI: Patient is a 68-year-old woman with history of depression, chronic insomnia, SI, anxiety, OCD, pre diabetes, HTN, and osteoporosis who presents for continued insomnia over the past 2 weeks. Patient was discharged on 04/11 after a very brief hospitalization for concern regarding an accidental overdose. Over the next 2 weeks she presented to the emergency room 3 times, on 04/15, 04/21 and on 04/24 all for insomnia: On 04/15 psychiatric consult increase Zyprexa to 5 mg q.h.s. and added trazodone On 04/21 psychiatric consult reports reports pt appears more forgetful, repeating information, ambivalent about decisions (such as wanting to go to the hospital, but then wanting to go home). Pt reports she is not able to sleep. However, reports that he sees her sleeping. reports pt appears more impulsive, anxious. Both denied suicidal ideation. No signs of psychosis or delusional content. Referred patient to [facility], and started patient on Lunesta Patient returns now continuing to report that she has not been able to sleep and that she is very anxious. She reports she just lies in bed, thinking about not sleeping; during the day she is walking around tired; she denies any manic symptoms. She starts to have worries that maybe she will lose her mind if she does not sleep. Initially she says she has not slept for the past 3 days on further inquiry she says maybe it has been longer, maybe it has been for 2 weeks. She denies depression, any SI or AVH. She appears somewhat confused, asking some questions over and over, and unclear about medication history. She agrees to take Anand muñoz and have her come in for a family meeting tomorrow to help provide more information for her presenting illness. Impression/clinical reasoning: Patient has long history of depression however it it seems that it is only become severe over the last 2 years; multiple SSRI/SNRI trials have been ineffective or if helpful, not sustainable so She appears confused to some degree which is different than 2 weeks ago and seems more likely due to lack of sleep then dementia; however dementia does remain something to explore Today will start with Ambien just to get patient some sleep. Will discuss further treatment plans with her tomorrow Hospital course: 04/26 Patient did sleep last night with Ambien 5 mg; did not need repeat -still seems confused Fam reports that patient had knee surgery around January and possibly due to anesthesia, patient got worsening depression. Discussed that over the past several months, february and March, patient has been seemingly very depressed and anxious, crying spells all day, feeling hopeless, saying things like lock me up asking to go to the emergency room with then refusing to... At some point she got T MS. She continued to have insomnia, low energy... Her agrees that she has insomnia however he thinks she is sleeping more than she reports; she however disagree saying she is just lying in bed with her eyes closed, not moving but she is completely awake. Reviewed history of medications, timeline of depression; seems that patient was overall able to keep depression contained for most of her life on Prozac and then Paxil. Patient remains confused, asking the same question over and over. She kept saying that [facility] stopped her mirtazapine and that this was helping, though it does not seem was helping that much given depression over the past several months; at any rate she Agrees to restart mirtazapine tonight to see if it will help asleep but will otherwise use Ambien. Also discussed ECT, reviewed risks/side effects and potential benefits and both and patient thought well of it. 04/27 patient much more clear today, with linear thinking. She feels the same. Feels that having gotten some sleep is very helpful. Discussed history thoroughly and OCD remains a component of her presentation, however much of it she is able to control. Patient would like to start lithium and senior grant writer agrees with plan. Will discontinue mirtazapine which has not proved helpful. Will continue with Viibryd however since it may very well be partially helpful And do not want to change multiple things at once; discussed ECT again and patient agrees to try medication management further before ECT.. 04/28 DC [facility]: feels had side-effect and afraid of sound of [facility]; wants to go to [facility] instead and agrees to Nortyptyline 04/30: Doxepin didn't help with sleep and wants to go back to Nortriptyline which was ordered. Otherwise continue current management and treatment plan. 05/01 Patient reports that mood is better but she still very anxious and says she woke up at 03:00 and can not fall back asleep; staff however reported that she was sleeping though patient adamantly denies this. Patient does remain exceedingly anxious, asking to see senior grant writer up to 10 times a day, asking senior grant writer the same questions; senior grant writer again clarifies and this is not forgetfulness but patient says he just is worried that she did not say it or hear exactly like she wanted to, citing OCD type symptoms. Over the weekend patient's nortriptyline was stopped in favor of doxepin however that did not help with insomnia so she was put back on nortriptyline; she agrees to increasing it now. Discussed Zyprexa and patient wondered if that can help with sleep. Increase Nortyrptyline 50mg 05/02 Very anxious, says Ambien not working very well, took an hour to fall asleep, feels that she is decompensating; agrees to scheduling low-dose Zyprexa to help with anxiety -screened for possible excess serotonin; patient denies loose stool, any muscle stiffness or rigidity, tremor, diaphoresis; no flushing -will likely increase nortriptyline but out of abundance of caution, will likely taper off and possibly DC BuSpar since patient said it is not working and want to avoid too much serotonin 05/03 Patient says she asked for Ambien along with Zyprexa and though she did sleep, understands that because of this it is not clear which medication helped. Delivery Agent discussed this with patient who agreed to only take Zyprexa 1st and see how it helps; senior grant writer clearly marked Ambien in [employer] to be only given if patient remained with insomnia after Zyprexa doses. Patient says that 1 time she was prescribed Zyprexa 10 mg and since it did not help she on her own took a double dose and with Zyprexa 20 mg she slept on it. She says she was hesitant to let this senior grant writer know because it was not prescribed this way and she felt embarrassed about it. Because of this, she would like to try Zyprexa 20 mg again as it helped in the past; she also would like nortriptyline increased to which senior grant writer agrees; she agrees with lowering and getting off BuSpar. -daytime Zyprexa 2.5 b.i.d. is helping with anxiety; discussed being out of her room and in the milieu more which she said she is doing and is helping -will hold off increasing nortriptyline since already making a change with Zyprexa Plan: CV q15min Continue Zyprexa 2.5 mg b.i.d. 0900/1300 to help deal with worsening daytime anxiety Increase to zyprexa 20 mg at bedtime with 5 mg p.r.n. for continued insomnia ONLY GIVE P.r.n. Ambien if patient does not fall asleep AFTER Zyprexa 20 mg and then another Zyprexa 5 mg. increase Nortyptyline to 50mg for depression, anxiety, insomnia DC [facility] ER does not want; anxious about, maybe side-effect DC mirtazapine not helpful Continue Ambien 5mg as a p.r.n. Continue Viibryd 40 mg daily Continue pravastatin 20 mg daily Continue Amlodipine 5 mg daily Continue Buspirone [address] 03/26/2024 The ventricles are normal in size. Stable small right basal ganglia calcification.. Correction in history: Patient was on Lexapro in 2022 Regarding [place], Risks, side-effects and benefits reviewed with pt, including, but not limited to, damage to kidneys and thyroid; pt was educated to stay hydrated, to watch for symptoms of lithium toxicity (also discussed, including but not limited to nausea, tremor, confusion) and the need to stay away from OTC NSAIDs (specifics reviewed) aside from Tylenol. Patient educated on: diagnosis, medication risk/benefits and therapeutic strategies Reason for continued inpatient stay Substantial Risk for: rapid decompensation Time Spent With Patient Time: Total time managing care of this patient today ____ minutes.
[2024-05-03] MEDS: Vilazodone HCL 40 MG TABLET PO (16:38)
[2024-05-03] MEDS: LORazepam 0.5 MG TABLET PO (16:38)
[2024-05-03 20:00] VITALS: BP 143/80; PULSE 86; RESP 18; TEMP 35.9; O2SAT 94
[2024-05-03] MEDS: OLANZapine 10 MG TABLET 20 MG PO (20:04)
[2024-05-03] MEDS: Nortriptyline HCl 25 MG CAPSULE 50 MG PO (20:04)
[2024-05-04 08:15] VITALS: BP 149/91; PULSE 104; RESP 16; TEMP 36.4; O2SAT 95
[2024-05-04 08:24] VITALS: BP 149/91
[2024-05-04] MEDS: OLANZapine 2.5 MG TABLET PO ×4 (08:24→16:59)
[2024-05-04] MEDS: amLODIPine Besylate 5 MG TABLET PO (08:24)
[2024-05-04] MEDS: Pravastatin Sodium 20 MG TABLET PO (08:25)
[2024-05-04] MEDS: busPIRone HCl 5 MG TABLET 15 MG PO (08:25)
--- NOTE | 2024-05-04 09:28 | P.PNPSI_ITS ---
Subjective Subjective Date of Service: 05/04/24 Reason For Visit: Insomnia/Anxiety/Confusion Interim History: Met with patient; discussed with team Patient reports that last night, she slept with zyprexa 20mg and did not need Ambien. Remains very anxious but says fighting it Increase nortriptyline to 75 mg Lower BuSpar to 10 mg b.i.d.; will consider discontinuing; patient does not think helpful and though no symptoms, considering wants to avoid risk of serotonin syndrome Mental Status Exam Mental Status Exam Narrative: Pt is alert and oriented; behavior is cooperative, anxious; patient is not in distress; dressed in casual attire with adequate hygiene; mood is described as ok...anxious and affect congruent, anxious but less so; eye contact appropriate; Speech is normal rate, volume and prosody and not pressured; some psychomotor retardation present but less so; only mild, intermittent psychomotor agitation present; thought process is goal directed though perseverates on medication; Thought content is on medication for sleep; tx; otherwise pertinent to relevant topics and without any delusional content, paranoid ideations or grandiosity; denies any SI/HI. There is no evidence of perceptual disturbance and denies AVH. Patients insight and judgment impaired but improving Diagnostics Vital Signs (24Hr): Vital Signs - 24 hr 05/03/24 20:00 05/04/24 08:15 05/04/24 08:24 Temperature 96.7 F L 97.6 F Pulse Rate 86 104 H Respiratory Rate 18 16 Blood Pressure 143/80 H 149/91 H 149/91 H Pulse Oximetry 94 95 Oxygen Delivery Method Room Air Room Air BMI result Body Mass Index 24.4 Labs 04/24/24 16:52 04/24/24 16:52 Medications Medications Current Medications Acetaminophen (Acetaminophen 325 Mg Tablet) 650 mg PO Q6H PRN PRN Reason: Headache/Pain Mild Scale (1-3) Al Hydroxide/Mg Hydroxide (Magnesium Hydrox/Alum Hydrox 30 Ml Oral.Susp) 30 ml PO Q6H PRN PRN Reason: Heartburn/Nausea Last Admin: 04/25/24 08:50 Dose: 30 ml Amlodipine Besylate (Amlodipine Besylate 5 Mg Tablet) 5 mg PO DAILY HARESH; Protocol Last Admin: 05/04/24 08:24 Dose: 5 mg Lorazepam (Lorazepam 0.5 Mg Tablet) 0.5 mg PO Q8H PRN PRN Reason: moderate anxiety Last Admin: 05/03/24 16:38 Dose: 0.5 mg Magnesium Hydroxide (Milk Of Magnesia 30 Ml Oral.Susp) 30 ml PO DAILY PRN PRN Reason: Constipation Olanzapine (Olanzapine 2.5 Mg Tablet) 2.5 mg PO TID PRN PRN Reason: Restlessness Last Admin: 05/03/24 14:31 Dose: 2.5 mg Olanzapine (Olanzapine 2.5 Mg Tablet) 2.5 mg PO BID@0900,1300 [facility] Last Admin: 05/04/24 08:24 Dose: 2.5 mg Olanzapine (Olanzapine 5 Mg Tablet) 5 mg PO BEDTIME PRN PRN Reason: GIVE FIRST if Continued insomn Olanzapine (Olanzapine 10 Mg Tablet) 20 mg PO BEDTIME [facility] Last Admin: 05/03/24 20:04 Dose: 20 mg Ondansetron HCl (Ondansetron Odt 4 Mg Tab.Rapdis) 4 mg TRANSLINGU Q6H PRN PRN Reason: Nausea and Vomiting Pravastatin Sodium (Pravastatin Sodium 20 Mg Tablet) 20 mg PO DAILY [facility] Last Admin: 05/04/24 08:25 Dose: 20 mg Vilazodone HCl (Vilazodone Hcl 40 Mg Tablet) 40 mg PO DAILY@1700 [facility] Last Admin: 05/03/24 16:38 Dose: 40 mg Zolpidem Tartrate (Zolpidem Tartrate 5 Mg Tablet) 5 mg PO BEDTIME PRN PRN Reason: WAIT;give IF zyprexa not help Allergies Allergies Allergy/AdvReac Type Severity Reaction Status Date / Time No Known Allergies Allergy Verified 04/24/24 16:36 [No Known Allergies*] Assessment & Plan Assessment & Plan (1) MDD (major depressive disorder), recurrent severe, without psychosis: Status: Acute Code(s): F33.2 - Major depressive disorder, recurrent severe without psychotic features (2) OCD (obsessive compulsive disorder): Status: Acute Code(s): F42.9 - Obsessive-compulsive disorder, unspecified (3) Chronic insomnia: Status: Acute Code(s): F51.04 - Psychophysiologic insomnia Plan HPI: Patient is a 68-year-old woman with history of depression, chronic insomnia, SI, anxiety, OCD, pre diabetes, HTN, and osteoporosis who presents for continued insomnia over the past 2 weeks. Patient was discharged on 04/11 after a very brief hospitalization for concern regarding an accidental overdose. Over the next 2 weeks she presented to the emergency room 3 times, on 04/15, 04/21 and on 04/24 all for insomnia: On 04/15 psychiatric consult increase Zyprexa to 5 mg q.h.s. and added trazodone On 04/21 psychiatric consult reports reports pt appears more forgetful, repeating information, ambivalent about decisions (such as wanting to go to the hospital, but then wanting to go home). Pt reports she is not able to sleep. However, reports that he sees her sleeping. reports pt appears more impulsive, anxious. Both denied suicidal ideation. No signs of psychosis or delusional content. [facility], and started patient on Lunesta Patient returns now continuing to report that she has not been able to sleep and that she is very anxious. She reports she just lies in bed, thinking about not sleeping; during the day she is walking around tired; she denies any manic symptoms. She starts to have worries that maybe she will lose her mind if she does not sleep. Initially she says she has not slept for the past 3 days on further inquiry she says maybe it has been longer, maybe it has been for 2 weeks. She denies depression, any SI or AVH. She appears somewhat confused, asking some questions over and over, and unclear about medication history. She agrees to take Ambien tonight and have her come in for a family meeting tomorrow to help provide more information for her presenting illness. Impression/clinical reasoning: Patient has long history of depression however it it seems that it is only become severe over the last 2 years; multiple SSRI/SNRI trials have been ineffective or if helpful, not sustainable so She appears confused to some degree which is different than 2 weeks ago and seems more likely due to lack of sleep then dementia; however dementia does remain something to explore Today will start with Ambien just to get patient some sleep. Will discuss further treatment plans with her tomorrow Hospital course: 04/26 Patient did sleep last night with Ambien 5 mg; did not need repeat -still seems confused Fam reports that patient had knee surgery around January and possibly due to anesthesia, patient got worsening depression. Discussed that over the past several months, february and March, patient has been seemingly very depressed and anxious, crying spells all day, feeling hopeless, saying things like lock me up asking to go to the emergency room with then refusing to... At some point she got T MS. She continued to have insomnia, low energy... Her agrees that she has insomnia however he thinks she is sleeping more than she reports; she however disagree saying she is just lying in bed with her eyes closed, not moving but she is completely awake. Reviewed history of medications, timeline of depression; seems that patient was overall able to keep depression contained for most of her life on Prozac and then Paxil. Patient remains confused, asking the same question over and over. She kept saying that [facility] stopped her mirtazapine and that this was helping, though it does not seem was helping that much given depression over the past several months; at any rate she Agrees to restart mirtazapine tonight to see if it will help asleep but will otherwise use Ambien. Also discussed ECT, reviewed risks/side effects and potential benefits and both and patient thought well of it. 04/27 patient much more clear today, with linear thinking. She feels the same. Feels that having gotten some sleep is very helpful. Discussed history thoroughly and OCD remains a component of her presentation, however much of it she is able to control. Patient would like to start lithium and machine sign writer agrees with plan. Will discontinue mirtazapine which has not proved helpful. Will continue with Viibryd however since it may very well be partially helpful And do not want to change multiple things at once; discussed ECT again and patient agrees to try medication management further before ECT.. 04/28 DC [place]: feels had side-effect and afraid of sound of [place]; wants to go to [facility] instead and agrees to Nortyptyline 04/30: Doxepin didn't help with sleep and wants to go back to Nortriptyline which was ordered. Otherwise continue current management and treatment plan. 05/01 Patient reports that mood is better but she still very anxious and says she woke up at 03:00 and can not fall back asleep; staff however reported that she was sleeping though patient adamantly denies this. Patient does remain exceedingly anxious, asking to see machine sign writer up to 10 times a day, asking machine sign writer the same questions; machine sign writer again clarifies and this is not forgetfulness but patient says he just is worried that she did not say it or hear exactly like she wanted to, citing OCD type symptoms. Over the weekend patient's nortriptyline was stopped in favor of doxepin however that did not help with insomnia so she was put back on nortriptyline; she agrees to increasing it now. Discussed Zyprexa and patient wondered if that can help with sleep. Increase Nortyrptyline 50mg 05/02 Very anxious, says Ambien not working very well, took an hour to fall asleep, feels that she is decompensating; agrees to scheduling low-dose Zyprexa to help with anxiety -screened for possible excess serotonin; patient denies loose stool, any muscle stiffness or rigidity, tremor, diaphoresis; no flushing -will likely increase nortriptyline but out of abundance of caution, will likely taper off and possibly DC BuSpar since patient said it is not working and want to avoid too much serotonin 05/03 Patient says she asked for Ambien along with Zyprexa and though she did sleep, understands that because of this it is not clear which medication helped. Senior Information Security Architect discussed this with patient who agreed to only take Zyprexa 1st and see how it helps; machine sign writer clearly marked Ambien in [employer] to be only given if patient remained with insomnia after Zyprexa doses. Patient says that 1 time she was prescribed Zyprexa 10 mg and since it did not help she on her own took a double dose and with Zyprexa 20 mg she slept on it. She says she was hesitant to let this machine sign writer know because it was not prescribed this way and she felt embarrassed about it. Because of this, she would like to try Zyprexa 20 mg again as it helped in the past; she also would like nortriptyline increased to which machine sign writer agrees; she agrees with lowering and getting off BuSpar. -daytime Zyprexa 2.5 b.i.d. is helping with anxiety; discussed being out of her room and in the milieu more which she said she is doing and is helping -will hold off increasing nortriptyline since already making a change with Zyprexa 05/04 Patient reports that last night, she slept with zyprexa 20mg and did not need Ambien; Remains very anxious but says fighting it Increase nortriptyline to 75 mg; Lower BuSpar to 10 mg b.i.d.; will consider discontinuing; patient does not think helpful and though no symptoms, considering wants to avoid risk of serotonin syndrome Plan: CV q15min Continue Zyprexa 2.5 mg b.i.d. 0900/1300 to help deal with worsening daytime anxiety Continue zyprexa 20 mg at bedtime with 5 mg p.r.n. for continued insomnia ONLY GIVE P.r.n. Ambien if patient does not fall asleep AFTER Zyprexa 20 mg and then another Zyprexa 5 mg. increase Nortyptyline to 75 mg for depression, anxiety, insomnia Lower to Buspirone 10 mg b.i.d.; will likely continue taper and DC since patient does not think it is helpful and effort to lower risks of serotonin syndrome DC [place] [facility] does not want; anxious about, maybe side-effect DC mirtazapine not helpful Continue Ambien 5mg as a p.r.n. Continue Viibryd 40 mg daily Continue pravastatin 20 mg daily Continue Amlodipine [address] 03/26/2024 The ventricles are normal in size. Stable small right basal ganglia calcification.. Correction in history: Patient was on Lexapro in 2022 Patient educated on: diagnosis and medication risk/benefits Informed Consent: understands Reason for continued inpatient stay Substantial Risk for: stable for discharge, rapid decompensation and med/psych decompensation Time Spent With Patient Time: Total time managing care of this patient today ____ minutes.
[2024-05-04 11:23] VITALS: BMI 24.7
[2024-05-04] MEDS: LORazepam 0.5 MG TABLET PO (14:35)
[2024-05-04 15:18] VITALS: BP 148/98
[2024-05-04] MEDS: cloNIDine HCL 0.1 MG TABLET PO (15:18)
[2024-05-04 15:19] VITALS: BP 148/98; PULSE 100
[2024-05-04] MEDS: Vilazodone HCL 40 MG TABLET PO (18:13)
[2024-05-04 20:00] VITALS: BP 138/80; PULSE 100; RESP 16; TEMP 37.1; O2SAT 98
[2024-05-04] MEDS: Nortriptyline HCl 25 MG CAPSULE 75 MG PO (20:29)
[2024-05-04] MEDS: OLANZapine 10 MG TABLET 20 MG PO (20:29)
[2024-05-04] MEDS: busPIRone HCl 10 MG TABLET PO (20:30)
[2024-05-04] MEDS: Zolpidem Tartrate 5 MG TABLET PO (21:35)
[2024-05-05 08:00] VITALS: BP 125/75; PULSE 91; TEMP 36.5; O2SAT 95
[2024-05-05 08:40] VITALS: BP 125/75
[2024-05-05] MEDS: busPIRone HCl 10 MG TABLET PO (08:40)
[2024-05-05] MEDS: amLODIPine Besylate 5 MG TABLET PO (08:40)
[2024-05-05] MEDS: OLANZapine 2.5 MG TABLET PO ×4 (08:40→16:03)
[2024-05-05] MEDS: Pravastatin Sodium 20 MG TABLET PO (08:40)
--- NOTE | 2024-05-05 09:52 | P.PNPSI_ITS ---
Subjective Subjective Date of Service: 05/05/24 Reason For Visit: Insomnia/Anxiety/Confusion Interim History: Met with patient; discussed with team Slept last night though did use Ambien. However relieved to know that she can have Ambien on discharge. She continues to feel anxious though it is a little less. Agreed to retry clonidine since yesterday's 1 time dose was helpful; also agreed to switch clonazepam, instead of Ativan since it last longer. Very much wants to increase nortriptyline however understands that it is possible to go too high too fast so agrees to stay at 75 mg for now; agrees with tapering and discontinuing BuSpar. Patient reports overall feeling better and is hopeful that she will be ready to go next week Mental Status Exam Mental Status Exam Narrative: Pt is alert and oriented; behavior is cooperative, anxious; patient is not in distress; dressed in casual attire with adequate hygiene; mood is described as ok; little better and affect congruent, anxious but less so; eye contact appropriate; Speech is normal rate, volume and prosody and not pressured; some psychomotor retardation present but less so; only mild, intermittent psychomotor agitation present; thought process is goal directed though perseverates on medication; Thought content is on medication for sleep; tx; otherwise pertinent to relevant topics and without any delusional content, paranoid ideations or grandiosity; denies any SI/HI. There is no evidence of perceptual disturbance and denies AVH. Patients insight and judgment fair. Diagnostics Vital Signs (24Hr): Vital Signs - 24 hr 05/04/24 15:18 05/04/24 15:19 05/04/24 20:00 Temperature 98.7 F Pulse Rate 100 100 Respiratory Rate 16 Blood Pressure 148/98 H 148/98 H 138/80 Pulse Oximetry 98 Oxygen Delivery Method Room Air 05/05/24 08:00 05/05/24 08:40 Temperature 97.7 F Pulse Rate 91 Respiratory Rate Blood Pressure 125/75 125/75 Pulse Oximetry 95 Oxygen Delivery Method Room Air BMI result Body Mass Index 24.7 Labs 04/24/24 16:52 04/24/24 16:52 Medications Medications Current Medications Acetaminophen (Acetaminophen 325 Mg Tablet) 650 mg PO Q6H PRN PRN Reason: Headache/Pain Mild Scale (1-3) Al Hydroxide/Mg Hydroxide (Magnesium Hydrox/Alum Hydrox 30 Ml Oral.Susp) 30 ml PO Q6H PRN PRN Reason: Heartburn/Nausea Last Admin: 04/25/24 08:50 Dose: 30 ml Amlodipine Besylate (Amlodipine Besylate 5 Mg Tablet) 5 mg PO DAILY [facility]; Protocol Last Admin: 05/05/24 08:40 Dose: 5 mg Buspirone HCl (Buspirone Hcl 10 Mg Tablet) 10 mg PO BID [facility] Last Admin: 05/05/24 08:40 Dose: 10 mg Lorazepam (Lorazepam 0.5 Mg Tablet) 0.5 mg PO Q8H PRN PRN Reason: moderate anxiety Last Admin: 05/04/24 14:35 Dose: 0.5 mg Magnesium Hydroxide (Milk Of Magnesia 30 Ml Oral.Susp) 30 ml PO DAILY PRN PRN Reason: Constipation Nortriptyline HCl (Nortriptyline Hcl 25 Mg Capsule) 75 mg PO BEDTIME [facility] Last Admin: 05/04/24 20:29 Dose: 75 mg Olanzapine (Olanzapine 2.5 Mg Tablet) 2.5 mg PO TID PRN PRN Reason: Restlessness Last Admin: 05/04/24 16:59 Dose: 2.5 mg Olanzapine (Olanzapine 2.5 Mg Tablet) 2.5 mg PO BID@0900,1300 [facility] Last Admin: 05/05/24 08:40 Dose: 2.5 mg Olanzapine (Olanzapine 5 Mg Tablet) 5 mg PO BEDTIME PRN PRN Reason: GIVE FIRST if Continued insomn Olanzapine (Olanzapine 10 Mg Tablet) 20 mg PO BEDTIME [facility] Last Admin: 05/04/24 20:29 Dose: 20 mg Ondansetron HCl (Ondansetron Odt 4 Mg Tab.Rapdis) 4 mg TRANSLINGU Q6H PRN PRN Reason: Nausea and Vomiting Pravastatin Sodium (Pravastatin Sodium 20 Mg Tablet) 20 mg PO DAILY [facility] Last Admin: 05/05/24 08:40 Dose: 20 mg Vilazodone HCl (Vilazodone Hcl 40 Mg Tablet) 40 mg PO DAILY@1700 [facility] Last Admin: 05/04/24 18:13 Dose: 40 mg Zolpidem Tartrate (Zolpidem Tartrate 5 Mg Tablet) 5 mg PO BEDTIME PRN PRN Reason: WAIT;give IF zyprexa not help Last Admin: 05/04/24 21:35 Dose: 5 mg Allergies Allergies Allergy/AdvReac Type Severity Reaction Status Date / Time No Known Allergies Allergy Verified 04/24/24 16:36 [No Known Allergies*] Assessment & Plan Assessment & Plan (1) MDD (major depressive disorder), recurrent severe, without psychosis: Status: Acute Code(s): F33.2 - Major depressive disorder, recurrent severe without psychotic features (2) OCD (obsessive compulsive disorder): Status: Acute Code(s): F42.9 - Obsessive-compulsive disorder, unspecified (3) Chronic insomnia: Status: Acute Code(s): F51.04 - Psychophysiologic insomnia Plan HPI: Patient is a 68-year-old woman with history of depression, chronic insomnia, SI, anxiety, OCD, pre diabetes, HTN, and osteoporosis who presents for continued insomnia over the past 2 weeks. Patient was discharged on 04/11 after a very brief hospitalization for concern regarding an accidental overdose. Over the next 2 weeks she presented to the emergency room 3 times, on 04/15, 04/21 and on 04/24 all for insomnia: On 04/15 psychiatric consult increase Zyprexa to 5 mg q.h.s. and added trazodone On 04/21 psychiatric consult reports reports pt appears more forgetful, repeating information, ambivalent about decisions (such as wanting to go to the hospital, but then wanting to go home). Pt reports she is not able to sleep. However, reports that he sees her sleeping. reports pt appears more impulsive, anxious. Both denied suicidal ideation. No signs of psychosis or delusional content. [facility], and started patient on Lunesta Patient returns now continuing to report that she has not been able to sleep and that she is very anxious. She reports she just lies in bed, thinking about not sleeping; during the day she is walking around tired; she denies any manic symptoms. She starts to have worries that maybe she will lose her mind if she does not sleep. Initially she says she has not slept for the past 3 days on further inquiry she says maybe it has been longer, maybe it has been for 2 weeks. She denies depression, any SI or AVH. She appears somewhat confused, asking some questions over and over, and unclear about medication history. She agrees to take Anand muñoz and have her come in for a family meeting tomorrow to help provide more information for her presenting illness. Impression/clinical reasoning: Patient has long history of depression however it it seems that it is only become severe over the last 2 years; multiple SSRI/SNRI trials have been ineffective or if helpful, not sustainable so She appears confused to some degree which is different than 2 weeks ago and seems more likely due to lack of sleep then dementia; however dementia does remain something to explore Today will start with Ambien just to get patient some sleep. Will discuss further treatment plans with her tomorrow Hospital course: 04/26 Patient did sleep last night with Ambien 5 mg; did not need repeat -still seems confused Fam reports that patient had knee surgery around January and possibly due to anesthesia, patient got worsening depression. Discussed that over the past several months, february and March, patient has been seemingly very depressed and anxious, crying spells all day, feeling hopeless, saying things like lock me up asking to go to the emergency room with then refusing to... At some point she got T MS. She continued to have insomnia, low energy... Her agrees that she has insomnia however he thinks she is sleeping more than she reports; she however disagree saying she is just lying in bed with her eyes closed, not moving but she is completely awake. Reviewed history of medications, timeline of depression; seems that patient was overall able to keep depression contained for most of her life on Prozac and then Paxil. Patient remains confused, asking the same question over and over. She kept saying that [facility] stopped her mirtazapine and that this was helping, though it does not seem was helping that much given depression over the past several months; at any rate she Agrees to restart mirtazapine tonight to see if it will help asleep but will otherwise use Ambien. Also discussed ECT, reviewed risks/side effects and potential benefits and both and patient thought well of it. 04/27 patient much more clear today, with linear thinking. She feels the same. Feels that having gotten some sleep is very helpful. Discussed history thoroughly and OCD remains a component of her presentation, however much of it she is able to control. Patient would like to start lithium and singer songwriter agrees with plan. Will discontinue mirtazapine which has not proved helpful. Will continue with Viibryd however since it may very well be partially helpful And do not want to change multiple things at once; discussed ECT again and patient agrees to try medication management further before ECT.. 04/28 DC [facility]: feels had side-effect and afraid of sound of [facility]; wants to go to [facility] instead and agrees to Nortyptyline 04/30: Doxepin didn't help with sleep and wants to go back to Nortriptyline which was ordered. Otherwise continue current management and treatment plan. 05/01 Patient reports that mood is better but she still very anxious and says she woke up at 03:00 and can not fall back asleep; staff however reported that she was sleeping though patient adamantly denies this. Patient does remain exceedingly anxious, asking to see singer songwriter up to 10 times a day, asking singer songwriter the same questions; singer songwriter again clarifies and this is not forgetfulness but patient says he just is worried that she did not say it or hear exactly like she wanted to, citing OCD type symptoms. Over the weekend patient's nortriptyline was stopped in favor of doxepin however that did not help with insomnia so she was put back on nortriptyline; she agrees to increasing it now. Discussed Zyprexa and patient wondered if that can help with sleep. Increase Nortyrptyline 50mg 05/02 Very anxious, says Ambien not working very well, took an hour to fall asleep, feels that she is decompensating; agrees to scheduling low-dose Zyprexa to help with anxiety -screened for possible excess serotonin; patient denies loose stool, any muscle stiffness or rigidity, tremor, diaphoresis; no flushing -will likely increase nortriptyline but out of abundance of caution, will likely taper off and possibly DC BuSpar since patient said it is not working and want to avoid too much serotonin 05/03 Patient says she asked for Ambien along with Zyprexa and though she did sleep, understands that because of this it is not clear which medication helped. Unit Aide Tech discussed this with patient who agreed to only take Zyprexa 1st and see how it helps; singer songwriter clearly marked Ambien in [employer] to be only given if patient remained with insomnia after Zyprexa doses. Patient says that 1 time she was prescribed Zyprexa 10 mg and since it did not help she on her own took a double dose and with Zyprexa 20 mg she slept on it. She says she was hesitant to let this singer songwriter know because it was not prescribed this way and she felt embarrassed about it. Because of this, she would like to try Zyprexa 20 mg again as it helped in the past; she also would like nortriptyline increased to which singer songwriter agrees; she agrees with lowering and getting off BuSpar. -daytime Zyprexa 2.5 b.i.d. is helping with anxiety; discussed being out of her room and in the milieu more which she said she is doing and is helping -will hold off increasing nortriptyline since already making a change with Zyprexa 05/04 Patient reports that last night, she slept with zyprexa 20mg and did not need Ambien; Remains very anxious but says fighting it Increase nortriptyline to 75 mg; Lower BuSpar to 10 mg b.i.d.; will consider discontinuing; patient does not think helpful and though no symptoms, considering wants to avoid risk of serotonin syndrome 05/05 Slept last night though did use Ambien. However relieved to know that she can have Ambien on discharge. She continues to feel anxious though it is a little less. Agreed to retry clonidine since yesterday's 1 time dose was helpful; also agreed to switch clonazepam, instead of Ativan since it last longer. Very much wants to increase nortriptyline however understands that it is possible to go too high too fast so agrees to stay at 75 mg for now; agrees with tapering and discontinuing BuSpar. Patient reports overall feeling better and is hopeful that she will be ready to go next week Plan: CV q15min Continue Zyprexa 2.5 mg b.i.d. 0900/1300 to help deal with worsening daytime anxiety Continue zyprexa 20 mg at bedtime with 5 mg p.r.n. for continued insomnia ONLY GIVE P.r.n. Ambien if patient does not fall asleep AFTER Zyprexa 20 mg and then another Zyprexa 5 mg. increased Nortyptyline to 75 mg for depression, anxiety, insomnia Lower to Buspirone 10 mg b.i.d.; will likely continue taper and DC since patient does not think it is helpful and effort to lower risks of serotonin syndrome DC [facility] does not want; anxious about, maybe side-effect DC mirtazapine not helpful Continue Ambien 5mg as a p.r.n. Continue Viibryd 40 mg daily Continue pravastatin 20 mg daily Continue Amlodipine [address] 03/26/2024 The ventricles are normal in size. Stable small right basal ganglia calcification.. Correction in history: Patient was on Lexapro in 2022 Patient educated on: diagnosis, medication risk/benefits and therapeutic strategies Informed Consent: understands Reason for continued inpatient stay Substantial Risk for: med/psych decompensation Time Spent With Patient Time: Total time managing care of this patient today ____ minutes.
[2024-05-05] MEDS: LORazepam 0.5 MG TABLET PO (16:05)
[2024-05-05] MEDS: Vilazodone HCL 40 MG TABLET PO (17:48)
[2024-05-05 20:00] VITALS: BP 119/71; PULSE 103; RESP 18; TEMP 36.4; O2SAT 96
[2024-05-05] MEDS: cloNIDine HCL 0.1 MG TABLET PO (20:24)
[2024-05-05] MEDS: Nortriptyline HCl 25 MG CAPSULE 75 MG PO (20:24)
[2024-05-05] MEDS: OLANZapine 10 MG TABLET 20 MG PO (20:24)
[2024-05-05] MEDS: OLANZapine 5 MG TABLET PO (21:49)
[2024-05-05] MEDS: Zolpidem Tartrate 5 MG TABLET PO (23:11)
[2024-05-06 08:43] VITALS: BP 131/81; PULSE 111; RESP 16; TEMP 36.3; O2SAT 95
[2024-05-06] MEDS: amLODIPine Besylate 5 MG TABLET PO (08:43)
[2024-05-06 08:44] VITALS: BP 131/81
[2024-05-06] MEDS: OLANZapine 2.5 MG TABLET PO ×3 (08:44→14:25)
[2024-05-06] MEDS: Pravastatin Sodium 20 MG TABLET PO (08:44)
[2024-05-06] MEDS: cloNIDine HCL 0.1 MG TABLET PO ×3 (08:44→20:37)
[2024-05-06] MEDS: busPIRone HCl 10 MG TABLET PO (08:44)
--- NOTE | 2024-05-06 08:53 | HO.PSYCHPN ---
Subjective Subjective Date of Service: 05/06/24 Reason For Visit: Insomnia/Anxiety/Confusion Interim History: Reviewed with team. Pt reports she is doing well. Discussed coming off Ambien and working toward this goal. Medication Compliance: Yes Side effects from medications: No Attending Groups: Intermittent Review of Systems Acute medical concerns: No Medical Review of Systems: unchanged Review of Systems Review of Systems Yes all other systems are reviewed and are negative Mental Status Exam Mental Status Exam Patient Appearance: Appropriate Patient Orientation: Person, Place, Time and Situation Level of Consciousness: Alert Patient Behavior: Appropriate, Talkative, Cooperative and Good Eye Contact Mood Description: Apprehensive (mild) Affect Description: Flat Patient Cognition Impaired: No Ability to Follow Directions: Good Speech Pattern: Spontaneous Speech Hallucinations: None Delusions: Not Present Thought Process: Goal Oriented Thought Content: positive for Goal Oriented Judgement: Fair Diagnostics Vital Signs (24Hr): Vital Signs - 24 hr 05/05/24 20:00 05/06/24 08:43 05/06/24 08:43 Temperature 97.5 F 97.3 F Pulse Rate 103 H 111 H Respiratory Rate 18 16 Blood Pressure 119/71 131/81 131/81 Pulse Oximetry 96 95 Oxygen Delivery Method Room Air Room Air 05/06/24 08:44 Temperature Pulse Rate Respiratory Rate Blood Pressure 131/81 Pulse Oximetry Oxygen Delivery Method BMI result Body Mass Index 24.7 Labs 04/24/24 16:52 04/24/24 16:52 Medications Medications Current Medications Acetaminophen (Acetaminophen 325 Mg Tablet) 650 mg PO Q6H PRN PRN Reason: Headache/Pain Mild Scale (1-3) Al Hydroxide/Mg Hydroxide (Magnesium Hydrox/Alum Hydrox 30 Ml Oral.Susp) 30 ml PO Q6H PRN PRN Reason: Heartburn/Nausea Last Admin: 04/25/24 08:50 Dose: 30 ml Amlodipine Besylate (Amlodipine Besylate 5 Mg Tablet) 5 mg PO DAILY [facility]; Protocol Last Admin: 05/06/24 08:43 Dose: 5 mg Buspirone HCl (Buspirone Hcl 10 Mg Tablet) 10 mg PO DAILY [facility] Last Admin: 05/06/24 08:44 Dose: 10 mg Clonazepam (Clonazepam 0.5 Mg Tablet) 0.5 mg PO BID PRN PRN Reason: mod to severe anxiety Clonidine HCl (Clonidine Hcl 0.1 Mg Tablet) 0.1 mg PO TID [facility]; Protocol Last Admin: 05/06/24 08:44 Dose: 0.1 mg Magnesium Hydroxide (Milk Of Magnesia 30 Ml Oral.Susp) 30 ml PO DAILY PRN PRN Reason: Constipation Nortriptyline HCl (Nortriptyline Hcl 25 Mg Capsule) 75 mg PO BEDTIME [facility] Last Admin: 05/05/24 20:24 Dose: 75 mg Olanzapine (Olanzapine 2.5 Mg Tablet) 2.5 mg PO TID PRN PRN Reason: Restlessness Last Admin: 05/05/24 16:03 Dose: 2.5 mg Olanzapine (Olanzapine 2.5 Mg Tablet) 2.5 mg PO BID@0900,1300 [facility] Last Admin: 05/06/24 08:44 Dose: 2.5 mg Olanzapine (Olanzapine 5 Mg Tablet) 5 mg PO BEDTIME PRN PRN Reason: GIVE FIRST if Continued insomn Last Admin: 05/05/24 21:49 Dose: 5 mg Olanzapine (Olanzapine 10 Mg Tablet) 20 mg PO BEDTIME [facility] Last Admin: 05/05/24 20:24 Dose: 20 mg Ondansetron HCl (Ondansetron Odt 4 Mg Tab.Rapdis) 4 mg TRANSLINGU Q6H PRN PRN Reason: Nausea and Vomiting Pravastatin Sodium (Pravastatin Sodium 20 Mg Tablet) 20 mg PO DAILY [facility] Last Admin: 05/06/24 08:44 Dose: 20 mg Vilazodone HCl (Vilazodone Hcl 40 Mg Tablet) 40 mg PO DAILY@1700 [facility] Last Admin: 05/05/24 17:48 Dose: 40 mg Zolpidem Tartrate (Zolpidem Tartrate 5 Mg Tablet) 5 mg PO BEDTIME PRN PRN Reason: WAIT;IF zyprexa PRN not help Last Admin: 05/05/24 23:11 Dose: 5 mg Allergies Allergies Allergy/AdvReac Type Severity Reaction Status Date / Time No Known Allergies Allergy Verified 04/24/24 16:36 [No Known Allergies*] Assessment & Plan Assessment & Plan (1) MDD (major depressive disorder), recurrent severe, without psychosis: Status: Acute Code(s): F33.2 - Major depressive disorder, recurrent severe without psychotic features (2) OCD (obsessive compulsive disorder): Status: Acute Code(s): F42.9 - Obsessive-compulsive disorder, unspecified (3) Chronic insomnia: Status: Acute Code(s): F51.04 - Psychophysiologic insomnia Plan HPI: Patient is a 68-year-old woman with history of depression, chronic insomnia, SI, anxiety, OCD, pre diabetes, HTN, and osteoporosis who presents for continued insomnia over the past 2 weeks. Patient was discharged on 04/11 after a very brief hospitalization for concern regarding an accidental overdose. Over the next 2 weeks she presented to the emergency room 3 times, on 04/15, 04/21 and on 04/24 all for insomnia: On 04/15 psychiatric consult increase Zyprexa to 5 mg q.h.s. and added trazodone On 04/21 psychiatric consult reports reports pt appears more forgetful, repeating information, ambivalent about decisions (such as wanting to go to the hospital, but then wanting to go home). Pt reports she is not able to sleep. However, reports that he sees her sleeping. reports pt appears more impulsive, anxious. Both denied suicidal ideation. No signs of psychosis or delusional content. [facility], and started patient on Lunesta Patient returns now continuing to report that she has not been able to sleep and that she is very anxious. She reports she just lies in bed, thinking about not sleeping; during the day she is walking around tired; she denies any manic symptoms. She starts to have worries that maybe she will lose her mind if she does not sleep. Initially she says she has not slept for the past 3 days on further inquiry she says maybe it has been longer, maybe it has been for 2 weeks. She denies depression, any SI or AVH. She appears somewhat confused, asking some questions over and over, and unclear about medication history. She agrees to take Anand muñoz and have her come in for a family meeting tomorrow to help provide more information for her presenting illness. Impression/clinical reasoning: Patient has long history of depression however it it seems that it is only become severe over the last 2 years; multiple SSRI/SNRI trials have been ineffective or if helpful, not sustainable so She appears confused to some degree which is different than 2 weeks ago and seems more likely due to lack of sleep then dementia; however dementia does remain something to explore Today will start with Anand just to get patient some sleep. Will discuss further treatment plans with her tomorrow Hospital course: 04/26 Patient did sleep last night with Ambien 5 mg; did not need repeat -still seems confused Fam reports that patient had knee surgery around January and possibly due to anesthesia, patient got worsening depression. Discussed that over the past several months, february and March, patient has been seemingly very depressed and anxious, crying spells all day, feeling hopeless, saying things like lock me up asking to go to the emergency room with then refusing to... At some point she got T MS. She continued to have insomnia, low energy... Her agrees that she has insomnia however he thinks she is sleeping more than she reports; she however disagree saying she is just lying in bed with her eyes closed, not moving but she is completely awake. Reviewed history of medications, timeline of depression; seems that patient was overall able to keep depression contained for most of her life on Prozac and then Paxil. Patient remains confused, asking the same question over and over. She kept saying that [facility] stopped her mirtazapine and that this was helping, though it does not seem was helping that much given depression over the past several months; at any rate she Agrees to restart mirtazapine tonight to see if it will help asleep but will otherwise use Ambien. Also discussed ECT, reviewed risks/side effects and potential benefits and both and patient thought well of it. 04/27 patient much more clear today, with linear thinking. She feels the same. Feels that having gotten some sleep is very helpful. Discussed history thoroughly and OCD remains a component of her presentation, however much of it she is able to control. Patient would like to start lithium and instructional writer agrees with plan. Will discontinue mirtazapine which has not proved helpful. Will continue with Viibryd however since it may very well be partially helpful And do not want to change multiple things at once; discussed ECT again and patient agrees to try medication management further before ECT.. 04/28 DC [place]: feels had side-effect and afraid of sound of [place]; wants to go to [facility] instead and agrees to Nortyptyline 04/30: Doxepin didn't help with sleep and wants to go back to Nortriptyline which was ordered. Otherwise continue current management and treatment plan. 05/01 Patient reports that mood is better but she still very anxious and says she woke up at 03:00 and can not fall back asleep; staff however reported that she was sleeping though patient adamantly denies this. Patient does remain exceedingly anxious, asking to see instructional writer up to 10 times a day, asking instructional writer the same questions; instructional writer again clarifies and this is not forgetfulness but patient says he just is worried that she did not say it or hear exactly like she wanted to, citing OCD type symptoms. Over the weekend patient's nortriptyline was stopped in favor of doxepin however that did not help with insomnia so she was put back on nortriptyline; she agrees to increasing it now. Discussed Zyprexa and patient wondered if that can help with sleep. Increase Nortyrptyline 50mg 05/02 Very anxious, says Anahyien not working very well, took an hour to fall asleep, feels that she is decompensating; agrees to scheduling low-dose Zyprexa to help with anxiety -screened for possible excess serotonin; patient denies loose stool, any muscle stiffness or rigidity, tremor, diaphoresis; no flushing -will likely increase nortriptyline but out of abundance of caution, will likely taper off and possibly DC BuSpar since patient said it is not working and want to avoid too much serotonin 05/03 Patient says she asked for Ambien along with Zyprexa and though she did sleep, understands that because of this it is not clear which medication helped. Pr Intern discussed this with patient who agreed to only take Zyprexa 1st and see how it helps; instructional writer clearly marked Ambien in [facility] to be only given if patient remained with insomnia after Zyprexa doses. Patient says that 1 time she was prescribed Zyprexa 10 mg and since it did not help she on her own took a double dose and with Zyprexa 20 mg she slept on it. She says she was hesitant to let this instructional writer know because it was not prescribed this way and she felt embarrassed about it. Because of this, she would like to try Zyprexa 20 mg again as it helped in the past; she also would like nortriptyline increased to which instructional writer agrees; she agrees with lowering and getting off BuSpar. -daytime Zyprexa 2.5 b.i.d. is helping with anxiety; discussed being out of her room and in the milieu more which she said she is doing and is helping -will hold off increasing nortriptyline since already making a change with Zyprexa 05/06: Continue tx. Plan: CV q15min Continue Zyprexa 2.5 mg b.i.d. 0900/1300 to help deal with worsening daytime anxiety Continue zyprexa 20 mg at bedtime with 5 mg p.r.n. for continued insomnia ONLY GIVE P.r.n. Ambien if patient does not fall asleep AFTER Zyprexa 20 mg and then another Zyprexa 5 mg. increase Nortyptyline to 75 mg for depression, anxiety, insomnia Lower to Buspirone 10 mg b.i.d.; will likely continue taper and DC since patient does not think it is helpful and effort to lower risks of serotonin syndrome DC [place] [facility] does not want; anxious about, maybe side-effect DC mirtazapine not helpful Continue Ambien 5mg as a p.r.n. Continue Viibryd 40 mg daily Continue pravastatin 20 mg daily Continue Amlodipine [address] 03/26/2024 The ventricles are normal in size. Stable small right basal ganglia calcification.. Correction in history: Patient was on Lexapro in 2022 Reason for continued inpatient stay Substantial Risk for: rapid decompensation Time Spent With Patient Time: Total time managing care of this patient today ____ minutes.
[2024-05-06 16:05] VITALS: BP 133/76
[2024-05-06] MEDS: clonazePAM 0.5 MG TABLET PO ×2 (16:06→20:37)
[2024-05-06] MEDS: Vilazodone HCL 40 MG TABLET PO (17:40)
[2024-05-06 20:00] VITALS: BP 115/59; PULSE 90; RESP 16; TEMP 36.1; O2SAT 94
[2024-05-06] MEDS: OLANZapine 10 MG TABLET 20 MG PO (20:37)
[2024-05-06] MEDS: Nortriptyline HCl 25 MG CAPSULE 75 MG PO (20:37)
[2024-05-06] MEDS: OLANZapine 5 MG TABLET PO (21:16)
[2024-05-06] MEDS: Zolpidem Tartrate 5 MG TABLET PO (21:48)
[2024-05-07 08:00] VITALS: BP 90/62; PULSE 95; RESP 16; TEMP 36.4; O2SAT 96
[2024-05-07 08:45] VITALS: BP 133/80
[2024-05-07] MEDS: amLODIPine Besylate 5 MG TABLET PO (08:45)
[2024-05-07 08:46] VITALS: BP 133/80
[2024-05-07] MEDS: cloNIDine HCL 0.1 MG TABLET PO ×3 (08:46→20:44)
[2024-05-07] MEDS: Pravastatin Sodium 20 MG TABLET PO (08:46)
[2024-05-07] MEDS: busPIRone HCl 10 MG TABLET PO (08:46)
[2024-05-07] MEDS: OLANZapine 2.5 MG TABLET PO ×3 (08:46→18:58)
--- NOTE | 2024-05-07 12:36 | P.PNPSI_ITS ---
Subjective Subjective Date of Service: 05/07/24 Reason For Visit: Insomnia/Anxiety/Confusion Interim History: Reviewed with team. Pt reports she is well. No current symptoms of concern Medication Compliance: Yes Side effects from medications: No Attending Groups: Intermittent Review of Systems Acute medical concerns: No Medical Review of Systems: unchanged Review of Systems Review of Systems Denies Mental Status Exam Mental Status Exam Patient Appearance: Appropriate Patient Orientation: Person, Place, Time and Situation Level of Consciousness: Alert Patient Behavior: Appropriate, Talkative, Cooperative and Good Eye Contact Mood Description: Apprehensive (mild) Affect Description: Flat Patient Cognition Impaired: No Ability to Follow Directions: Good Speech Pattern: Spontaneous Speech Hallucinations: None Delusions: Not Present Thought Process: Goal Oriented Thought Content: positive for Goal Oriented Judgement: Fair Diagnostics Vital Signs (24Hr): Vital Signs - 24 hr 05/06/24 16:05 05/06/24 20:00 05/07/24 08:00 Temperature 96.9 F 97.6 F Pulse Rate 90 95 Respiratory Rate 16 16 Blood Pressure 133/76 115/59 L 90/62 Pulse Oximetry 94 96 Oxygen Delivery Method Room Air Room Air 05/07/24 08:45 05/07/24 08:46 Temperature Pulse Rate Respiratory Rate Blood Pressure 133/80 133/80 Pulse Oximetry Oxygen Delivery Method BMI result Body Mass Index 24.7 Labs 04/24/24 16:52 04/24/24 16:52 Medications Medications Current Medications Acetaminophen (Acetaminophen 325 Mg Tablet) 650 mg PO Q6H PRN PRN Reason: Headache/Pain Mild Scale (1-3) Al Hydroxide/Mg Hydroxide (Magnesium Hydrox/Alum Hydrox 30 Ml Oral.Susp) 30 ml PO Q6H PRN PRN Reason: Heartburn/Nausea Last Admin: 04/25/24 08:50 Dose: 30 ml Amlodipine Besylate (Amlodipine Besylate 5 Mg Tablet) 5 mg PO DAILY [facility]; Protocol Last Admin: 05/07/24 08:45 Dose: 5 mg Buspirone HCl (Buspirone Hcl 10 Mg Tablet) 10 mg PO DAILY [facility] Last Admin: 05/07/24 08:46 Dose: 10 mg Clonazepam (Clonazepam 0.5 Mg Tablet) 0.5 mg PO BID PRN PRN Reason: mod to severe anxiety Last Admin: 05/06/24 20:37 Dose: 0.5 mg Clonidine HCl (Clonidine Hcl 0.1 Mg Tablet) 0.1 mg PO TID [facility]; Protocol Last Admin: 05/07/24 08:46 Dose: 0.1 mg Magnesium Hydroxide (Milk Of Magnesia 30 Ml Oral.Susp) 30 ml PO DAILY PRN PRN Reason: Constipation Nortriptyline HCl (Nortriptyline Hcl 25 Mg Capsule) 75 mg PO BEDTIME [facility] Last Admin: 05/06/24 20:37 Dose: 75 mg Olanzapine (Olanzapine 2.5 Mg Tablet) 2.5 mg PO TID PRN PRN Reason: Restlessness Last Admin: 05/06/24 14:25 Dose: 2.5 mg Olanzapine (Olanzapine 2.5 Mg Tablet) 2.5 mg PO BID@0900,1300 [facility] Last Admin: 05/07/24 08:46 Dose: 2.5 mg Olanzapine (Olanzapine 5 Mg Tablet) 5 mg PO BEDTIME PRN PRN Reason: GIVE FIRST if Continued insomn Last Admin: 05/06/24 21:16 Dose: 5 mg Olanzapine (Olanzapine 10 Mg Tablet) 20 mg PO BEDTIME [facility] Last Admin: 05/06/24 20:37 Dose: 20 mg Ondansetron HCl (Ondansetron Odt 4 Mg Tab.Rapdis) 4 mg TRANSLINGU Q6H PRN PRN Reason: Nausea and Vomiting Pravastatin Sodium (Pravastatin Sodium 20 Mg Tablet) 20 mg PO DAILY [facility] Last Admin: 05/07/24 08:46 Dose: 20 mg Vilazodone HCl (Vilazodone Hcl 40 Mg Tablet) 40 mg PO DAILY@1700 [facility] Last Admin: 05/06/24 17:40 Dose: 40 mg Zolpidem Tartrate (Zolpidem Tartrate 5 Mg Tablet) 5 mg PO BEDTIME PRN PRN Reason: WAIT;IF zyprexa PRN not help Last Admin: 05/06/24 21:48 Dose: 5 mg Allergies Allergies Allergy/AdvReac Type Severity Reaction Status Date / Time No Known Allergies Allergy Verified 04/24/24 16:36 [No Known Allergies*] Assessment & Plan Assessment & Plan (1) MDD (major depressive disorder), recurrent severe, without psychosis: Status: Acute Code(s): F33.2 - Major depressive disorder, recurrent severe without psychotic features (2) OCD (obsessive compulsive disorder): Status: Acute Code(s): F42.9 - Obsessive-compulsive disorder, unspecified (3) Chronic insomnia: Status: Acute Code(s): F51.04 - Psychophysiologic insomnia Plan HPI: Patient is a 68-year-old woman with history of depression, chronic insomnia, SI, anxiety, OCD, pre diabetes, HTN, and osteoporosis who presents for continued insomnia over the past 2 weeks. Patient was discharged on 04/11 after a very brief hospitalization for concern regarding an accidental overdose. Over the next 2 weeks she presented to the emergency room 3 times, on 04/15, 04/21 and on 04/24 all for insomnia: On 04/15 psychiatric consult increase Zyprexa to 5 mg q.h.s. and added trazodone On 04/21 psychiatric consult reports reports pt appears more forgetful, repeating information, ambivalent about decisions (such as wanting to go to the hospital, but then wanting to go home). Pt reports she is not able to sleep. However, reports that he sees her sleeping. reports pt appears more impulsive, anxious. Both denied suicidal ideation. No signs of psychosis or delusional content. [facility], and started patient on Lunesta Patient returns now continuing to report that she has not been able to sleep and that she is very anxious. She reports she just lies in bed, thinking about not sleeping; during the day she is walking around tired; she denies any manic symptoms. She starts to have worries that maybe she will lose her mind if she does not sleep. Initially she says she has not slept for the past 3 days on further inquiry she says maybe it has been longer, maybe it has been for 2 weeks. She denies depression, any SI or AVH. She appears somewhat confused, asking some questions over and over, and unclear about medication history. She agrees to take Anand muñoz and have her come in for a family meeting tomorrow to help provide more information for her presenting illness. Impression/clinical reasoning: Patient has long history of depression however it it seems that it is only become severe over the last 2 years; multiple SSRI/SNRI trials have been ineffective or if helpful, not sustainable so She appears confused to some degree which is different than 2 weeks ago and seems more likely due to lack of sleep then dementia; however dementia does remain something to explore Today will start with Anand just to get patient some sleep. Will discuss further treatment plans with her tomorrow Hospital course: 04/26 Patient did sleep last night with Ambien 5 mg; did not need repeat -still seems confused Fam reports that patient had knee surgery around January and possibly due to anesthesia, patient got worsening depression. Discussed that over the past several months, february and March, patient has been seemingly very depressed and anxious, crying spells all day, feeling hopeless, saying things like lock me up asking to go to the emergency room with then refusing to... At some point she got T MS. She continued to have insomnia, low energy... Her agrees that she has insomnia however he thinks she is sleeping more than she reports; she however disagree saying she is just lying in bed with her eyes closed, not moving but she is completely awake. Reviewed history of medications, timeline of depression; seems that patient was overall able to keep depression contained for most of her life on Prozac and then Paxil. Patient remains confused, asking the same question over and over. She kept saying that [facility] stopped her mirtazapine and that this was helping, though it does not seem was helping that much given depression over the past several months; at any rate she Agrees to restart mirtazapine tonight to see if it will help asleep but will otherwise use Ambien. Also discussed ECT, reviewed risks/side effects and potential benefits and both and patient thought well of it. 04/27 patient much more clear today, with linear thinking. She feels the same. Feels that having gotten some sleep is very helpful. Discussed history thoroughly and OCD remains a component of her presentation, however much of it she is able to control. Patient would like to start lithium and automobile and property underwriter agrees with plan. Will discontinue mirtazapine which has not proved helpful. Will continue with Viibryd however since it may very well be partially helpful And do not want to change multiple things at once; discussed ECT again and patient agrees to try medication management further before ECT.. 04/28 DC [facility]: feels had side-effect and afraid of sound of [facility]; wants to go to [facility] instead and agrees to Nortyptyline 04/30: Doxepin didn't help with sleep and wants to go back to Nortriptyline which was ordered. Otherwise continue current management and treatment plan. 05/01 Patient reports that mood is better but she still very anxious and says she woke up at 03:00 and can not fall back asleep; staff however reported that she was sleeping though patient adamantly denies this. Patient does remain exceedingly anxious, asking to see automobile and property underwriter up to 10 times a day, asking automobile and property underwriter the same questions; automobile and property underwriter again clarifies and this is not forgetfulness but patient says he just is worried that she did not say it or hear exactly like she wanted to, citing OCD type symptoms. Over the weekend patient's nortriptyline was stopped in favor of doxepin however that did not help with insomnia so she was put back on nortriptyline; she agrees to increasing it now. Discussed Zyprexa and patient wondered if that can help with sleep. Increase Nortyrptyline 50mg 05/02 Very anxious, says Anahyien not working very well, took an hour to fall asleep, feels that she is decompensating; agrees to scheduling low-dose Zyprexa to help with anxiety -screened for possible excess serotonin; patient denies loose stool, any muscle stiffness or rigidity, tremor, diaphoresis; no flushing -will likely increase nortriptyline but out of abundance of caution, will likely taper off and possibly DC BuSpar since patient said it is not working and want to avoid too much serotonin 05/03 Patient says she asked for Ambien along with Zyprexa and though she did sleep, understands that because of this it is not clear which medication helped. Piano Professor discussed this with patient who agreed to only take Zyprexa 1st and see how it helps; automobile and property underwriter [facility] only [facility] if patient remained with insomnia after Zyprexa doses. Patient says that 1 time she was prescribed Zyprexa 10 mg and since it did not help she on her own took a double dose and with Zyprexa 20 mg she slept on it. She says she was hesitant to let this automobile and property underwriter know because it was not prescribed this way and she felt embarrassed about it. Because of this, she would like to try Zyprexa 20 mg again as it helped in the past; she also would like nortriptyline increased to which automobile and property underwriter agrees; she agrees with lowering and getting off BuSpar. -daytime Zyprexa 2.5 b.i.d. is helping with anxiety; discussed being out of her room and in the milieu more which she said she is doing and is helping -will hold off increasing nortriptyline since already making a change with Zyprexa 05/07 Continue tx Plan: CV q15min Continue Zyprexa 2.5 mg b.i.d. 0900/1300 to help deal with worsening daytime anxiety Continue zyprexa 20 mg at bedtime with 5 mg p.r.n. for continued insomnia ONLY GIVE P.r.n. Ambien if patient does not fall asleep AFTER Zyprexa 20 mg and then another Zyprexa 5 mg. increase Nortyptyline to 75 mg for depression, anxiety, insomnia Lower to Buspirone 10 mg b.i.d.; will likely continue taper and DC since patient does not think it is helpful and effort to lower risks of serotonin syndrome DC [facility] does not want; anxious about, maybe side-effect DC mirtazapine not helpful Continue Ambien 5mg as a p.r.n. Continue Viibryd 40 mg daily Continue pravastatin 20 mg daily Continue Amlodipine [address] 03/26/2024 The ventricles are normal in size. Stable small right basal ganglia calcification.. Correction in history: Patient was on Lexapro in 2022 Reason for continued inpatient stay Substantial Risk for: rapid decompensation Time Spent With Patient Time: Total time managing care of this patient today ____ minutes.
[2024-05-07 15:47] VITALS: BP 130/76
[2024-05-07 20:00] VITALS: BP 128/77; PULSE 104; RESP 18; TEMP 36.3; O2SAT 94
[2024-05-07] MEDS: Nortriptyline HCl 25 MG CAPSULE 75 MG PO (20:44)
[2024-05-07] MEDS: OLANZapine 10 MG TABLET 20 MG PO (20:45)
[2024-05-07] MEDS: OLANZapine 5 MG TABLET PO (21:44)
[2024-05-07] MEDS: clonazePAM 0.5 MG TABLET PO (22:06)
[2024-05-07] MEDS: Zolpidem Tartrate 5 MG TABLET PO (22:06)
[2024-05-08] MEDS: OLANZapine 2.5 MG TABLET PO ×2 (09:25→09:53)
[2024-05-08 09:51] VITALS: BP 134/88; PULSE 122; RESP 14; TEMP 36.4; O2SAT 94
[2024-05-08 09:52] VITALS: BP 134/88
[2024-05-08] MEDS: amLODIPine Besylate 5 MG TABLET PO (09:52)
[2024-05-08] MEDS: busPIRone HCl 10 MG TABLET PO (09:53)
[2024-05-08] MEDS: Pravastatin Sodium 20 MG TABLET PO (09:53)
[2024-05-08 09:54] VITALS: BP 134/88
[2024-05-08] MEDS: cloNIDine HCL 0.1 MG TABLET PO (09:54)
--- NOTE | 2024-05-08 11:08 | PM.PSYDC ---
DS: Providers Provider Date of Service: 05/08/24 Date of admission: 04/24/24 22:22 Date of discharge: 05/08/24 Primary care physician: JENNIE Rosales Attending physician on admission: Ryan Bhardwaj Consults: 04/26/24 15:05 Consult to Hospitalist Routine Comment: Consulting Provider: Hospitalist Reason For Exam: medical assessment for ECT Attending physician on discharge: Ryan Bhardwaj DS: Diagnosis Discharge Diagnosis (1) MDD (major depressive disorder), recurrent severe, without psychosis: Status: Acute (2) OCD (obsessive compulsive disorder): Status: Acute (3) Chronic insomnia: Status: Acute DS: Medications Discharge Medications Home Medications: Home Medications ?Medication ?Instructions ?Recorded ?Confirmed pravastatin 20 mg tablet 20 mg PO DAILY 06/29/23 04/20/24 amlodipine 5 mg tablet (Norvasc) 5 mg PO DAILY 01/11/24 04/29/24 multivitamin 1 tab PO DAILY 01/11/24 04/20/24 Previous Rx's ?Medication ?Instructions ?Recorded buspirone 5 mg tablet 5 mg PO DAILY 7 days #7 tabs 05/08/24 clonazepam 0.5 mg tablet 0.5 mg PO BID PRN mod to severe 05/08/24 anxiety 30 days #60 tabs clonidine HCl 0.1 mg tablet 0.1 mg PO TID 30 days #90 tabs 05/08/24 nortriptyline 75 mg capsule 75 mg PO BEDTIME 30 days #30 caps 05/08/24 olanzapine 2.5 mg tablet See Rx Instructions .Route 05/08/24 .COMPLEX 30 days #120 tabs olanzapine 20 mg tablet 20 mg PO BEDTIME 30 days #30 tabs 05/08/24 vilazodone 40 mg tablet (Viibryd) 40 mg PO DAILY@1700 30 days #30 05/08/24 tabs zolpidem 5 mg tablet 5 mg PO BEDTIME PRN WAIT;IF 05/08/24 zyprexa PRN not help 30 days #30 tabs Mental Status Exam Mental Status Exam Narrative: Pt is alert and oriented; behavior is cooperative, anxious; patient is not in distress; dressed in casual attire with adequate hygiene; mood is described as good and affect congruent, brighter, more calm; eye contact appropriate; Speech is normal rate, volume and prosody and not pressured; no psychomotor retardation present; thought process is goal directed and linear; Thought content is on medication for sleep, discharge, tx; otherwise pertinent to relevant topics and without any delusional content, paranoid ideations or grandiosity; denies any SI/HI. There is no evidence of perceptual disturbance and denies AVH. Patients insight and judgment fair. DS: Summary Hospital Course Hospital Course: HPI: Patient is a 68-year-old woman with history of depression, chronic insomnia, SI, anxiety, OCD, pre diabetes, HTN, and osteoporosis who presents for continued insomnia over the past 2 weeks. Patient was discharged on 04/11 after a very brief hospitalization for concern regarding an accidental overdose. Over the next 2 weeks she presented to the emergency room 3 times, on 04/15, 04/21 and on 04/24 all for insomnia: On 04/15 psychiatric consult increase Zyprexa to 5 mg q.h.s. and added trazodone On 04/21 psychiatric consult reports reports pt appears more forgetful, repeating information, ambivalent about decisions (such as wanting to go to the hospital, but then wanting to go home). Pt reports she is not able to sleep. However, reports that he sees her sleeping. reports pt appears more impulsive, anxious. Both denied suicidal ideation. No signs of psychosis or delusional content. [facility], and started patient on Lunesta Patient returns now continuing to report that she has not been able to sleep and that she is very anxious. She reports she just lies in bed, thinking about not sleeping; during the day she is walking around tired; she denies any manic symptoms. She starts to have worries that maybe she will lose her mind if she does not sleep. Initially she says she has not slept for the past 3 days on further inquiry she says maybe it has been longer, maybe it has been for 2 weeks. She denies depression, any SI or AVH. She appears somewhat confused, asking some questions over and over, and unclear about medication history. She agrees to take Anand muñoz and have her come in for a family meeting tomorrow to help provide more information for her presenting illness. Hospital course: On admission, very anxious and seems confused. Patient has long history of depression however it it seems that it is only become severe over the last 2 years; multiple SSRI/SNRI trials have been ineffective or if helpful, not sustainable so. She appears confused to some degree which is different than 2 weeks ago and seems more likely due to lack of sleep then dementia; however dementia does remain something to explore Tonight scheduled with Ambien just to get patient some sleep. Will discuss further treatment plans with her tomorrow 04/26 Patient did sleep last night with Ambien 5 mg; did not need repeat -still seems confused Fam reports that patient had knee surgery around January and possibly due to anesthesia, patient got worsening depression. Discussed that over the past several months, february and March, patient has been seemingly very depressed and anxious, crying spells all day, feeling hopeless, saying things like lock me up asking to go to the emergency room with then refusing to... At some point she got T MS. She continued to have insomnia, low energy... Her agrees that she has insomnia however he thinks she is sleeping more than she reports; she however disagree saying she is just lying in bed with her eyes closed, not moving but she is completely awake. Reviewed history of medications, timeline of depression; seems that patient was overall able to keep depression contained for most of her life on Prozac and then Paxil. Patient remains confused, asking the same question over and over. She kept saying that [place] stopped her mirtazapine and that this was helping, though it does not seem was helping that much given depression over the past several months; at any rate she Agrees to restart mirtazapine tonight to see if it will help asleep but will otherwise use Ambien. Also discussed ECT, reviewed risks/side effects and potential benefits and both and patient thought well of it. 04/27 patient much more clear today, with linear thinking. She feels the same. Feels that having gotten some sleep is very helpful. Discussed history thoroughly and OCD remains a component of her presentation, however much of it she is able to control. Patient would like to start lithium and residential mortgage underwriter agrees with plan. Will discontinue mirtazapine which has not proved helpful. Will continue with Viibryd however since it may very well be partially helpful And do not want to change multiple things at once; discussed ECT again and patient agrees to try medication management further before ECT.. 04/28 DC [place]: feels had side-effect and afraid of sound of [place]; wants to go to [facility] instead and agrees to Nortyptyline 04/30: Doxepin didn't help with sleep and wants to go back to Nortriptyline which was ordered. Otherwise continue current management and treatment plan. 05/01 Patient reports that mood is better but she still very anxious and says she woke up at 03:00 and can not fall back asleep; staff however reported that she was sleeping though patient adamantly denies this. Patient does remain exceedingly anxious, asking to see residential mortgage underwriter up to 10 times a day, asking residential mortgage underwriter the same questions; residential mortgage underwriter again clarifies and this is not forgetfulness but patient says he just is worried that she did not say it or hear exactly like she wanted to, citing OCD type symptoms. Over the weekend patient's nortriptyline was stopped in favor of doxepin however that did not help with insomnia so she was put back on nortriptyline; she agrees to increasing it now. Discussed Zyprexa and patient wondered if that can help with sleep. Increase Nortyrptyline 50mg 05/02 Very anxious, says Ambien not working very well, took an hour to fall asleep, feels that she is decompensating; agrees to scheduling low-dose Zyprexa to help with anxiety -screened for possible excess serotonin; patient denies loose stool, any muscle stiffness or rigidity, tremor, diaphoresis; no flushing -will likely increase nortriptyline but out of abundance of caution, will likely taper off and possibly DC BuSpar since patient said it is not working and want to avoid too much serotonin 05/03 Patient says she asked for Ambien along with Zyprexa and though she did sleep, understands that because of this it is not clear which medication helped. Performance Improvement Specialist discussed this with patient who agreed to only take Zyprexa 1st and see how it helps; residential mortgage underwriter clearly marked Ambien in [employer] to be only given if patient remained with insomnia after Zyprexa doses. Patient says that 1 time she was prescribed Zyprexa 10 mg and since it did not help she on her own took a double dose and with Zyprexa 20 mg she slept on it. She says she was hesitant to let this residential mortgage underwriter know because it was not prescribed this way and she felt embarrassed about it. Because of this, she would like to try Zyprexa 20 mg again as it helped in the past; she also would like nortriptyline increased to which residential mortgage underwriter agrees; she agrees with lowering and getting off BuSpar. -daytime Zyprexa 2.5 b.i.d. is helping with anxiety; discussed being out of her room and in the milieu more which she said she is doing and is helping -will hold off increasing nortriptyline since already making a change with Zyprexa 05/04 Patient reports that last night, she slept with zyprexa 20mg and did not need Ambien; Remains very anxious but says fighting it Increase nortriptyline to 75 mg; Lower BuSpar to 10 mg b.i.d.; will consider discontinuing; patient does not think helpful and though no symptoms, considering wants to avoid risk of serotonin syndrome 05/05 Slept last night though did use Ambien. However relieved to know that she can have Ambien on discharge. She continues to feel anxious though it is a little less. Agreed to retry clonidine since yesterday's 1 time dose was helpful; also agreed to switch clonazepam, instead of Ativan since it last longer. Very much wants to increase nortriptyline however understands that it is possible to go too high too fast so agrees to stay at 75 mg for now; agrees with tapering and discontinuing BuSpar. Patient reports overall feeling better and is hopeful that she will be ready to go next week 05/08 On day of discharge patient said she was feeling better, that her mood was better and that anxiety was significantly less; corroborating her report, patient had started using PRNs less as well. She felt ready to go home. Patient was without any SI throughout her admission. Formulation: Patient has long history of depression however it it seems that was fairly well controlled on Prozac and then Paxil; also has mild OCD but was able to keep it under control. Her depression become severe over the last 2 years and since then; multiple SSRI/SNRI trials have been ineffective or if helpful, not sustainable so. On this admission She appears confused to some degree which is different than 2 weeks ago and seems more likely due to lack of sleep then dementia; Confusion did fully resolve after patient got sleep however dementia does remain something to explore. Regarding medication management: Patient was able to sleep with Ambien however initially it worked within 20 minutes but later on in the admission would take up to an hour or more. Because of this she was started on Zyprexa, saying that Zyprexa 20 mg had helped her sleep in the past; with Ambien and Zyprexa patient slept through the night.. Also to treat severe anxiety with some OCD symptoms, she was started on nortriptyline which was titrated to 75 mg. She was continued on home medication of Viibryd since it may have been at least partially helpful; tapered off and eventually to be discontinued on BuSpar since it was not seemingly helpful and in effort to avoid serotonin syndrome. She benefited from clonidine t.i.d.; also switched to clonazepam p.r.n. since it was longer acting. Patient's remains in control of dispensing medication. Medication summary: Started on nortriptyline 75 mg q.h.s. Continued on Viibryd 40 mg Started on Zyprexa 20 mg q.h.s. Started on Zyprexa 2.5 mg scheduled b.i.d. and extra p.r.n. for anxiety Restarted on Clonidine 0.1 mg t.i.d. Switched to Clonazepam 0.5 mg b.i.d. p.r.n. (discontinued Ativan) Started on Ambien 5 mg q.h.s. p.r.n. Discontinued mirtazapine since considered not helpful Also in process of discontinuing BuSpar with taper since considered not to be helpful Past Psychiatric History: -Overall stable for about 25 years on Prozac 60mg until it pooped out Then stable on Paxil for 10 years : Stop working 1st psych admission: [facility] August 2022 (1st ever psych admission): -Paxil discontinued since not helpful any more (on for 10 years -started on Cymbalta and Seroquel. 2nd psych admission: [facility] September 2022 through October 2022: -Cymbalta/Seroquel discontinued -restarted on Paxil plus mirtazapine 3rd psych admission: [facility] June 2023 -very depressed/SI -discontinue Paxil -trial of Lexapro -started Zoloft Outpatient Treatment: [address] Hall started on -Viibryd and mirtazapine -trial of to TMS 4th (Brief) psych admission: [facility] March 2024 - anxiety unbearable, insomnia and accidentally overtook Ativan; got aspiration pneumonia transferred to [facility] for SI; patient and denied SI and patient dc?d head CT 03/26/2024 The ventricles are normal in size. Stable small right basal ganglia calcification.. Time spent discussing smoking cessation with patient: 3 to 10 minutes Status at Discharge Functional status at discharge: independent ambulation Overall status at discharge: patient is progressing back to baseline Time Spent with Patient Time attestation: Total time managing care of this patient today ____ minutes. Time spent: Greater than 30 minutes Discharge Plan Discharge Anticipated Discharge Date/Time: 05/08/24 11:30 Patient Disposition: Home, Self-Care Discharge Diagnosis: MDD, recurrent, severe without psychosis in partial remission Referrals: [facility] Comprehensive Assessment w RITA VEGA [Other] - 05/18/24 2:00 pm [facility] [place] Partial Hospitalization Program Intake [Other] - 05/25/24 11:00 am (Park in the back parking lot C and walk toward [facility]. Then follow signs for Partial program in the [facility] from the [facility]. ) Psychiatry Appt. w Dr. Connor Isaac [Other] - 05/29/24 10:00 am Lizzette Little PA [Primary Care Provider] - 1 Week (OFFICE WILL CALL PATIENT WITH FOLLOW-UP APPOINTMENT) Discharge Medications: New clonidine HCl 0.1 mg Tablet 0.1 mg PO TID 30 Days Qty: 90 1RF Protocol: Hold for SBP< HOLD for SBP < : 90 clonazepam 0.5 mg Tablet 0.5 mg PO BID PRN (Reason: mod to severe anxiety) 30 Days Qty: 60 0RF nortriptyline 75 mg capsule 75 mg PO BEDTIME 30 Days Qty: 30 1RF olanzapine 2.5 mg Tablet See Rx Instructions .ROUTE .COMPLEX 30 Days Qty: 120 1RF Rx Instructions: take 1 tab at breakfast and at lunch time; may also take an extra 2.5mg up to 2 more times a day for severe anxiety zolpidem 5 mg Tablet 5 mg PO BEDTIME PRN (Reason: WAIT;IF zyprexa PRN not help) 30 Days Qty: 30 0RF Continued pravastatin 20 mg tablet 20 mg PO DAILY multivitamin Tablet 1 tab PO DAILY amlodipine [Norvasc] 5 mg tablet 5 mg PO DAILY vilazodone [Viibryd] 40 mg Tablet 40 mg PO DAILY@1700 30 Days Qty: 30 1RF Changed buspirone 5 mg tablet 5 mg PO DAILY 7 Days Qty: 7 0RF olanzapine 20 mg tablet 20 mg PO BEDTIME 30 Days Qty: 30 1RF Discontinued eszopiclone [Lunesta] 1 mg tablet 1 mg PO BEDTIME Qty: 15 0RF trazodone 50 mg Tablet 50 mg PO BEDTIME 30 Days Qty: 30 0RF Discharge Orders: Discharge Order (Routine); Ordered 05/08/24 Ordered By: Ryan Bhardwaj Diet: Regular diet Activity on Discharge: As tolerated Stand Alone Forms: Patient Portal Discharge page, Community Support Print Language: Sinhala Care Plan Goals: Maintain mood and safe behaviors Take medications as prescribed Practice coping skills Continue with outpatient providers and reach out to them as needed Health Concerns: Mood stability, insomnia and behaviors Hypertension Hx of Hyperlipidemia Plan of Treatment: Follow up with your PCP, psychiatric provider and other outpatient providers regarding above concerns Take medications as prescribed Assessment: Risk assessment at time of discharge:? Patient was interviewed prior to discharge and found to be fully oriented and without any SI or HI. Patient has improved insight and judgment and wants to continue treatment. Patient is not in imminent risk of harm to self or others and has a safety plan that includes presenting to the closest ER or calling 911 if feeling unsafe.? Patient has been observed closely by nursing and unit staff throughout admission; patient has not engaged in any behaviors that suggest dangerousness to self or others and has demonstrated appropriate behaviors and impulse control Discharge Date/Time: 05/08/24 11:39
== END 2024-05-08 11:39 | disposition home or self-care (01) | DRG 885 ==
LOC: HO.ED 19:59 → HO.PM5 22:29
PROVIDERS: Admitting Provider Psychiatry & Neurology Psychiatry; Emergency Provider Emergency Medicine; PCP Student in an Organized Health Care Education/Training Program; Visit Provider Psychiatry & Neurology Psychiatry
DX: F33.2 Major depressive disorder, recurrent severe without psychotic features (principal); F42.9 Obsessive-compulsive disorder, unspecified; F51.04 Psychophysiologic insomnia; Z20.822 Contact with and (suspected) exposure to COVID-19; Z79.899 Other long term (current) drug therapy
CPT/HCPCS: 36415; 73562; 80053; 80061; 80143; 80179; 80307; 81001; 83036; 83735; 84443; 85025; 85652; 86038; 86039; 86140; 87086; 87635; 92950; 93005; 99281; 99285; S9485

== ENCOUNTER → 2024-04-24 16:43 | Outpatient (BNV) | payer MEDICARE, OTHER, SELFPAY | PROVIDERS: Admitting Provider Psychiatry & Neurology Psychiatry; Emergency Provider Emergency Medicine; PCP Student in an Organized Health Care Education/Training Program; Visit Provider Internal Medicine Cardiovascular Disease | DX: R94.31 Abnormal electrocardiogram [ECG] [EKG] (principal) | CPT/HCPCS: 93010 ==

== ENCOUNTER → 2024-04-24 22:22 | Outpatient (BNV) | payer MEDICARE, OTHER, SELFPAY | PROVIDERS: Admitting Provider Psychiatry & Neurology Psychiatry; Emergency Provider Emergency Medicine; PCP Student in an Organized Health Care Education/Training Program; Visit Provider Psychiatry & Neurology Psychiatry | DX: F33.2 Major depressive disorder, recurrent severe without psychotic features (principal); F42.9 Obsessive-compulsive disorder, unspecified; F51.04 Psychophysiologic insomnia | CPT/HCPCS: 90792; 99231; 99232; 99238 ==

== ENCOUNTER 2024-05-25 12:36 | Outpatient (RCR) | payer MEDICARE, OTHER, SELFPAY ==
--- NOTE | 2024-05-29 09:59 | HO.PHP ---
[facility] staff member contacted Zulma due to her not showing up for her scheduled day to start program. Zulma disclosed that she has an appointment today and tomorrow. Zulma also reported that this week is very busy for her. [facility] staff member informed Zulma of our guidelines for starting the program and encouraged her to contact [facility] to complete a reassessment since this week is too challenging for her to start the program. Zulma was receptive and in agreement.
== END 2024-05-25 23:59 | disposition home or self-care (01) ==
LOC: HO.PHPA 12:36
PROVIDERS: Visit Provider Psychiatry & Neurology Psychiatry
DX: F33.1 Major depressive disorder, recurrent, moderate (principal); F41.1 Generalized anxiety disorder; F41.0 Panic disorder [episodic paroxysmal anxiety]; F43.10 Post-traumatic stress disorder, unspecified
CPT/HCPCS: 90791

== ENCOUNTER 2024-07-21 12:28 | Outpatient (AMB) | payer MEDICARE, OTHER, SELFPAY ==
--- NOTE | 2024-07-21 12:45 | A.OFFVIS_ITS ---
Intake Visit Reasons: OV- TKA 01/19/24 NE, possible infection Intake Note: Pt presents to the office today for a left TKA 01/19/24 follow up. Pt states she thinks she might have an infection because about 1 week ago she started having stiffness,swelling, and her skin feels warm to the touch. Pt states she did get a dental cleaning on Wednesday07/17/24 and forgot to take the antibiotic before. Allergies No Known Allergies [No Known Allergies*] Allergy (Verified 07/21/24 12:46) HPI HPI OV- TKA 01/19/24 NE, possible infection: Details: 68-year-old female who presents in the office today 6 months status post left total knee replacement, which was performed on 01/19/[address] Cortez. The patient was seen by JENNIE Coronado on 04/24/24, when no signs of infection were noted at that time. She was recommended to increase activities as tolerated. While in the office today, the patient presents today with the concern of a possible infection. She reports she started having stiffness, edema, and warm skin a week ago. She states she had dental cleaning done on 07/17/24 and forgot to take the antibiotics prior to dental work. [facility] Medical History (Updated 05/16/24 @ 00:01 by Jacquelyn Goldman) OCD (obsessive compulsive disorder) MDD (major depressive disorder), recurrent severe, without psychosis Major depressive disorder Arthritis Panic attacks Osteoporosis PTSD (post-traumatic stress disorder) ELIAN (generalized anxiety disorder) PAC (premature atrial contraction) History of anxiety Dyslipidemia Osteoarthritis (arthritis due to wear and tear of joints) Diverticulitis Essential hypertension Hyperkalemia Depression Surgical History (Updated 07/21/24 @ 14:58 by Patti Lacy) Hx of tonsillectomy Hx of tubal ligation History of total right knee replacement Hx of colonoscopy History of carpal tunnel release Family History Mother Dementia Father No problems noted. Social History Household Members: Spouse Housing: House Are you a primary resident care manager rn to a significant other at home: No Do you presently have visiting nurse or other home services: No Unable to assess alcohol history related to: Unable to respond Alcohol intake: never Patient Tobacco Use Status: Never used Tobacco e-Cigarette/Vaping Use: Never Used Second Hand Smoke Exposure: No Substance Use Type: Marijuana Advance Directives Date on File: 07/31/20 service: No Current occupational status: retired Current occupation: Right Handed Sexual orientation: Straight/Heterosexual Cognitive needs: No Hearing needs: No Vision needs: No Female Reproductive History Menstrual Age of Menarche: 8 Review of Systems Const All systems reviewed & are unremarkable except as noted in HPI and below Physical Exam Const General: cooperative, healthy appearing and no acute distress Resp Effort & Inspection: normal respiratory effort and able to speak in complete sentences Cardio Rate: regular rate Peripheral pulses: Peripheral pulses 2+ throughout GI Palpation (GI): Soft to palpation Skin Lesions: no lesions Rashes: no rashes Extrem Other: Left knee: Normal to inspection. Visible scar which was prior total knee arthroplasty. No erythema. Full knee flexion and extension. Warm to touch. NVI. Assessment & Plan Assessment & Plan (1) S/P total knee arthroplasty: Code(s): Z96.659 - Presence of unspecified artificial knee joint Category: Surgical Plan Ms. Sparks is a 68-year-old female who presents in the office today 6 months status post left total knee replacement, which was performed on 01/19/[address] Cortez. The patient was seen by JENNIE Coronado on 04/24/24, when no signs of infection were noted at that time. She was recommended to increase activities as tolerated. While in the office today, the patient presents today with the concern of a possible infection. She reports she started having stiffness, edema, and warm skin a week ago. She states she had dental cleaning done on 07/17/24 and forgot to take the antibiotics prior to dental work. Dr. Cortez was available to speak with me and see the patient today; and a collaborative treatment plan was made. At this time, the patient is not experiencing any pain or erythema in the left knee. She was advised to monitor the symptoms. She was educated on signs of infection, which are as follows but not limited to erythema, edema, drainage, or warmth. If she experiences any of these symptoms, she must contact the office immediately or present to the ED for further evaluation and treatment. Over the next two weeks should her symptoms progress at all she will contact our office. The patient reports she has upcoming dental procedure. Therefore, I have sent a prescription of amoxicillin 500 mg PO 4 tabs to be taken 1 hour prior to dental work, to the pharmacy. Medications: New amoxicillin 2,000 mg (4 x 500 mg) PO ONCE 4 tabs 0RF take 4 tabs by mouth 1 hour prior to dental ppx 1 day Patient Instructions: Scribed by Patti Lacy, medical technologist blood bank, for Margret Francis PA-C on 07/21/24 at 12:57 pm EST. Coding Level of Care Code Est Pt Level 3 (92340) Diagnoses S/P total knee arthroplasty Z96.659
== END 2024-07-21 13:23 | disposition home or self-care (01) ==
PROVIDERS: PCP Student in an Organized Health Care Education/Training Program; Visit Provider Physician Assistant
DX: Z47.1 Aftercare following joint replacement surgery (principal); Z96.652 Presence of left artificial knee joint
CPT/HCPCS: 99213

== ENCOUNTER → 2024-07-21 12:28 | Outpatient (BNVA) | payer MEDICARE, OTHER, SELFPAY | PROVIDERS: PCP Student in an Organized Health Care Education/Training Program; Visit Provider Physician Assistant | DX: Z03.89 Encounter for observation for other suspected diseases and conditions ruled out (principal); Z96.652 Presence of left artificial knee joint | CPT/HCPCS: 99212 ==

== ENCOUNTER 2024-07-24 09:23 | Outpatient (AMB) | payer MEDICARE, OTHER, SELFPAY ==
[2024-07-24 09:39] VITALS: BMI 23.8
--- NOTE | 2024-07-24 09:39 | A.OFFVIS_ITS ---
Vital Signs 07/24/24 09:39 Height 5 ft 7 in Weight 152 lb BMI 23.8 Intake Visit Reasons: OV- LT TKA 01/19/24 NE follow up Intake Note: Zulma is a 68 year old female who presents today for a post operative appointment s/p left TKA 01/19/24. Patient reports that she is doing well, has no concerns. The knee is still a bit swollen and warm to the touch. Allergies No Known Allergies [No Known Allergies*] Allergy (Verified 07/24/24 09:41) HPI HPI OV- LT TKA 01/19/24 NE follow up: Details: Zulma is doing well now 6 months status post left knee replacement. She was concerned because of some swelling and then a visit to the dentist and when she forgets to take antibiotics. She does not have any pain. She was seen last week and she states the swelling is better. [facility] Medical History OCD (obsessive compulsive disorder) MDD (major depressive disorder), recurrent severe, without psychosis Major depressive disorder Arthritis Panic attacks Osteoporosis PTSD (post-traumatic stress disorder) ELIAN (generalized anxiety disorder) PAC (premature atrial contraction) History of anxiety Dyslipidemia Osteoarthritis (arthritis due to wear and tear of joints) Diverticulitis Essential hypertension Hyperkalemia Depression Surgical History Hx of tonsillectomy Hx of tubal ligation History of total right knee replacement Hx of colonoscopy History of carpal tunnel release Family History Mother Dementia Father No problems noted. Social History Household Members: Spouse Housing: House Are you a primary healthcare market consultant to a significant other at home: No Do you presently have visiting nurse or other home services: No Unable to assess alcohol history related to: Unable to respond Alcohol intake: never Patient Tobacco Use Status: Never used Tobacco e-Cigarette/Vaping Use: Never Used Second Hand Smoke Exposure: No Substance Use Type: Marijuana Advance Directives Date on File: 07/31/20 service: No Current occupational status: retired Current occupation: Right Handed Sexual orientation: Straight/Heterosexual Cognitive needs: No Hearing needs: No Vision needs: No Female Reproductive History Menstrual Age of Menarche: 8 Physical Exam Vital Signs: BMI result Body Mass Index 23.8 Extrem Other: Incision is well healed. She has a mild effusion that is improved from last week with no erythema or warmth. Full range of motion. No pain. Normal gait Assessment & Plan Assessment & Plan (1) S/P total knee arthroplasty: Code(s): Z96.659 - Presence of unspecified artificial knee joint Category: Surgical Plan: Zulma is doing well. No evidence of infection. May follow up in 6 months or as needed Coding Level of Care Code Est Pt Level 3 (31997) Diagnoses S/P total knee arthroplasty Z96.659
== END 2024-07-24 10:02 | disposition home or self-care (01) ==
PROVIDERS: PCP Student in an Organized Health Care Education/Training Program; Visit Provider Orthopaedic Surgery
DX: Z47.1 Aftercare following joint replacement surgery (principal); Z96.652 Presence of left artificial knee joint
CPT/HCPCS: 99213

== ENCOUNTER → 2024-07-24 09:23 | Outpatient (BNVA) | payer MEDICARE, OTHER, SELFPAY | PROVIDERS: PCP Student in an Organized Health Care Education/Training Program; Visit Provider Orthopaedic Surgery | DX: Z96.652 Presence of left artificial knee joint (principal); M81.0 Age-related osteoporosis without current pathological fracture | CPT/HCPCS: 99212 ==

== ENCOUNTER 2024-09-07 13:50 | Emergency (ER) | payer MEDICARE, OTHER, SELFPAY ==
--- NOTE | ~2024-09-07 | XR_ITS ---
EXAMINATION: XR CHEST CLINICAL INFORMATION: cHEST PAIN, PALPITATIONS COMPARISON: X-ray dated March 26, 2024 TECHNIQUE: Frontal view of the chest was obtained. FINDINGS: No consolidation pleural effusion or pneumothorax. Linear opacity right lower hemithorax. Cardiac mediastinal silhouette is normal in size. Multilevel thoracic spondylosis. Osteopenia versus the process. Degenerative changes in the shoulders. XR/XR chest 1V IMPRESSION: Subsegmental atelectasis versus scarring, right lung. Electronically signed by: Hector Barlow MD 09/07/2024 03:50 PM EST
--- NOTE | 2024-09-07 13:53 | ECG_ITS ---
Test Reason : CP Blood Pressure : / mmHG Vent. Rate : 123 BPM Atrial Rate : 123 BPM P-R Int : 148 ms QRS Dur : 084 ms QT Int : 334 ms P-R-T Axes : 010 034 035 degrees QTc Int : 478 ms Poor data quality Sinus tachycardia Possible Left atrial enlargement Nonspecific ST and T wave abnormality Abnormal ECG When compared with ECG of 24-APR-2024 16:43, ST now depressed in Lateral leads Nonspecific T wave abnormality now evident in Lateral leads Referred By: Jesus Oswald Electronically Signed By:LEON SUNG MD
[2024-09-07 14:07] VITALS: BP 123/67; PULSE 127; RESP 18; TEMP 36.9; O2SAT 98; BMI 23.2
--- NOTE | 2024-09-07 14:11 | ED_ITS ---
HPI - General Adult General Chief complaint: Chest Pain Stated complaint: Chest pain, reaction to meds? Time Seen by Provider: 09/07/24 14:27 Source: patient, RN notes reviewed and old records reviewed Mode of arrival: ambulatory Limitations: no limitations History of Present Illness ED Provider: Amanda BUSTILLO narrative: 68-year-old female with past medical history significant for anxiety, OCD, arthritis, palpitations, hypercalcemia, hypertension presents for evaluation of anxiety. patient reports that her psychiatrist increased her nortriptyline from 50 mg to 100 mg about 2 weeks ago patient also reports that her psychiatrist started her on Zoloft a few months ago due to these prescriptions she thinks she may have serotonin syndrome she reports that she had some chest tightness and a fast heart rate earlier. At the time my evaluation she reports that she feels better she denies any shortness of breath, abdominal pain, nausea vomiting, fevers, chills no other complaints or concerns at this time Related Data Home Medications ?Medication ?Instructions ?Recorded ?Confirmed pravastatin 20 mg tablet 20 mg PO DAILY 06/29/23 04/20/24 amlodipine 5 mg tablet (Norvasc) 5 mg PO DAILY 01/11/24 04/29/24 multivitamin 1 tab PO DAILY 01/11/24 04/20/24 Previous Rx's ?Medication ?Instructions ?Recorded nortriptyline 75 mg capsule 75 mg PO BEDTIME 30 days #30 caps 05/08/24 olanzapine 20 mg tablet 20 mg PO BEDTIME 30 days #30 tabs 05/08/24 zolpidem 5 mg tablet 5 mg PO BEDTIME PRN WAIT;IF 05/08/24 zyprexa PRN not help 30 days #30 tabs amoxicillin 500 mg tablet 2,000 mg (4 x 500 mg) PO ONCE take 08/10/24 4 tabs by mouth 1 hour prior to dental ppx 1 day #4 tabs Allergies Allergy/AdvReac Type Severity Reaction Status Date / Time No Known Allergies Allergy Verified 09/07/24 14:08 [No Known Allergies*] Review of Systems 2 Constitutional: Constitutional: Denies body ache(s), Denies chills and Denies fever(s) Eyes: Eyes: Denies blurry vision ENT: Denies vertigo and Denies dizziness Cardiovascular: Cardiovascular: Denies chest pain, Reports rapid heart rate, Denies palpitations and Denies dyspnea Respiratory: Respiratory: Denies cough and Denies dyspnea Gastrointestinal: Gastrointestinal: Denies abdominal pain, Denies nausea and Denies vomiting Musculoskeletal: Musculoskeletal: Denies back pain Integumentary/Breasts: Skin/Breast: Denies rash Neurologic: Denies vertigo and Denies dizziness Endocrine: Endocrine: Denies palpitations [facility] Past Medical History Medical History OCD (obsessive compulsive disorder) MDD (major depressive disorder), recurrent severe, without psychosis Major depressive disorder Arthritis Panic attacks Osteoporosis PTSD (post-traumatic stress disorder) ELIAN (generalized anxiety disorder) PAC (premature atrial contraction) History of anxiety Dyslipidemia Osteoarthritis (arthritis due to wear and tear of joints) Diverticulitis Essential hypertension Hyperkalemia Depression Surgical History Hx of tonsillectomy Hx of tubal ligation History of total right knee replacement Hx of colonoscopy History of carpal tunnel release Family History Family History Mother Dementia Father No problems noted. Social History Social History Household Members: Spouse Housing: House Are you a primary pharmacy customer care specialist to a significant other at home: No Do you presently have visiting nurse or other home services: No Unable to assess alcohol history related to: Unable to respond Alcohol intake: never Patient Tobacco Use Status: Never used Tobacco e-Cigarette/Vaping Use: Never Used Second Hand Smoke Exposure: No Substance Use Type: Marijuana Advance Directives: No Advance Directives Information Provided: Yes Advance Directives Date on File: 07/31/20 service: No Current occupational status: retired Current occupation: Right Handed Sexual orientation: Straight/Heterosexual Cognitive needs: No Hearing needs: No Vision needs: No Physical Exam ED Vital Signs: Vital Signs - 24 hr 09/07/24 14:07 09/07/24 16:14 Temperature 98.5 F 98.5 F Pulse Rate 127 H 108 H Respiratory Rate 18 18 Blood Pressure 123/67 123/67 Pulse Oximetry 98 98 Oxygen Delivery Method Room Air Room Air BMI result Body Mass Index 23.2 Const General: healthy appearing, comfortable, no acute distress, alert and awake Nutritional Appearance: well nourished Orientation/consciousness: patient oriented x3 HENMT Head: Yes normocephalic and Yes atraumatic Throat: Yes posterior oropharynx normal Eyes Eyelids: Yes eyelids normal Conjunctivae: conjunctivae normal Sclerae: sclerae normal Corneas: corneas normal Pupils: Equal, round and reactive pupils present EOM: EOMs intact bilaterally Neck Neck: Yes full ROM Resp Effort & Inspection: normal respiratory effort, able to speak in complete sentences, no audible wheezes and not labored Auscultation: clear to auscultation bilaterally Cardio Rate: regular rate Rhythm: regular rhythm GI Inspection: No distended Palpation (GI): Soft to palpation, not firm, nontender, no guarding and not rigid Skin General skin exam: elasticity normal Neuro General: patient oriented x3 Cranial nerves: Yes Equal, round and reactive pupils present and Yes Bilaterally intact EOM present Cognition (Neuro): normal cognition Extrem Other: Moving all extremities well without any obvious deformities Course Course Course Narrative: RME: 68 yold female presents to the ED for chest pain and plapitations. thinks symptoms are due to meds. EKG and labs ordered Reevaluation(s) Reevaluation #1: patient's workup largely unremarkable, chest x-ray shows atelectasis but no focal consolidation to suggest pneumonia. She also has no cough or shortness of breath. No fever. Plan to discharge the patient to follow up with her sometimes she was for any medication adjustments Time: 16:03 Medical Decision Making Medical Decision Making [facility] Narrative: 68-year-old female with past medical history as documented above presents for evaluation of palpitations. Clinically she has no signs or symptoms of serotonin syndrome with the exception of tachycardia. However her tachycardia improved during my evaluation her heart rate was regular from the 80s to 90s. This improved without any intervention and I feel that she was likely tachycardic due to anxiety. She has no muscle rigidity, increased temperature, confusion. Plan for labs. Differential Diagnosis Differential Diagnoses: The differential diagnosis associated with the presentation includes anxiety Tachycardia Arrhythmia ACS serotonin syndrome less likely Lab Data [facility] Lab Attestation statement: I reviewed the patient's lab results. patient has a chronic leukocytosis with a white count of 14.8, no significant anemia. Normal platelet count. 09/07/24 14:29 09/07/24 14:29 Labs: Lab Results 09/07/24 Range/Units 14:29 WBC 14.8 H (4.8-10.8) X10*3/uL RBC 4.90 (4.20-5.50) X10*6/uL Hgb 14.8 (12.0-16.0) g/dl Hct 42.3 (37.0-47.0) % MCV 86.3 (80.0-98.0) fL MCH 30.2 (27.0-33.0) pg MCHC 35.0 (31.0-35.0) g/dl RDW 13.1 (11.0-16.0) % Plt Count 348 (160-400) X10*3/uL MPV 9.2 L (9.4-12.3) fL Immature Gran % (Auto) 0.7 H (0.0-0.4) % Neut % (Auto) 66.0 (45-73) % Lymph % (Auto) 24.7 (20-40) % Hinds % (Auto) 7.7 (2-11) % Eos % (Auto) 0.6 (0-4) % Baso % (Auto) 0.3 (0-2) % Lymph # (Auto) 3.7 (1.2-4.9) X10*3/uL Hinds # (Auto) 1.1 (0.1-1.2) X10*3/uL Eos # (Auto) 0.1 (0.0-0.4) X10*3/uL Baso # (Auto) 0.1 (0.0-0.2) X10*3/uL Abs Immat Gran (auto) 0.10 H (0.00-0.03) X10*3/uL Absolute Neuts (auto) 9.8 H (2.0-8.3) x10*3/uL Absolute Nucleated RBC 0.000 (0.0-0.012) X10*3/uL Nucleated RBC % (auto) 0.0 (0.0-0.2) /100WBC PT 12.0 (10.9-12.4) SEC INR 1.0 (0.9-1.1) APTT 38.2 H (26.0-36.8) SEC Sodium 140 (135-145) mmol/L Potassium 3.4 (3.3-5.1) mmol/L Chloride 104 (96-108) mmol/L Carbon Dioxide 26 (22-29) mmol/L Anion Gap 13 (12-20) BUN 16 (9-16) mg/dL Creatinine 0.85 (0.5-1.4) mg/dL Estim Creat Clear Calc 59.8 Estimated GFR > 60 Random Glucose 129 H (60-115) mg/dL Calcium 9.6 (8.4-10.2) mg/dL Total Bilirubin 0.4 (0.0-1.0) mg/dL AST 26 (5-31) U/L ALT 30 (0-31) U/L Alkaline Phosphatase 75 (39-117) U/L Troponin I High Sens 6.3 (<3.5-17.0) ng/L B-Natriuretic Peptide 13 (<100) pg/mL Total Protein 7.3 (6.5-8.0) g/dL Albumin 4.3 (3.5-5.0) g/dL Independent Interpretation I performed an independent interpretation of an: EKG ( Sinus tachycardia with a rate of 123 beats minute. With a appears to be some ST depressions in the lateral leads which may be related to rate) Discharge Plan Discharge Clinical Impression: Anxiety Patient Disposition: Home, Self-Care Instructions: Anxiety (ED) Additional Instructions: your symptoms are not consistent with serotonin syndrome. Your workup in the ER was reassuring. Your symptoms are likely related to a panic/ anxiety attack I recommend following up with your psychiatrist and your primary doctor return for new or worsening symptoms Prescriptions: No Action amoxicillin 500 mg tablet 2,000 mg PO ONCE 1 Days Qty: 4 0RF pravastatin 20 mg tablet 20 mg PO DAILY multivitamin Tablet 1 tab PO DAILY amlodipine [Norvasc] 5 mg tablet 5 mg PO DAILY nortriptyline 75 mg capsule 75 mg PO BEDTIME 30 Days Qty: 30 1RF zolpidem 5 mg Tablet 5 mg PO BEDTIME PRN (Reason: WAIT;IF zyprexa PRN not help) 30 Days Qty: 30 0RF olanzapine 20 mg tablet 20 mg PO BEDTIME 30 Days Qty: 30 1RF Interventions: ED Discharge Assessment Last Done: 09/07/24 16:14 Discharge Date/Time: 09/07/24 16:15 Print Language: Kazakh
[2024-09-07 14:36] LABS: MANUAL DIFF FLAG NO
[2024-09-07 14:39] LABS: Basophils Absolute Auto 0.1 X10*3/uL (0.0-0.2); Basophils Percent Auto 0.3 % (0-2); Eosinophils Absolute Auto 0.1 X10*3/uL (0.0-0.4); Eosinophils Percent Auto 0.6 % (0-4); Hematocrit 42.3 % (37.0-47.0); Hemoglobin 14.8 g/dl (12.0-16.0); Imm Gran Pct Auto 0.7 % (0.0-0.4); Lymphocytes Absolute Auto 3.7 X10*3/uL (1.2-4.9); Lymphocytes Percent Auto 24.7 % (20-40); Mean Corpuscular Hemoglobin 30.2 pg (27.0-33.0); Mean Corpuscular Volume 86.3 fL (80.0-98.0); Mean Platelet Volume 9.2 fL (9.4-12.3); Monocytes Absolute Auto 1.1 X10*3/uL (0.1-1.2); Monocytes Percent Auto 7.7 % (2-11); Neutrophils Absolute Auto 9.8 x10*3/uL (2.0-8.3); Platelet Count 348 X10*3/uL (160-400); Red Cell Distribution Width 13.1 % (11.0-16.0); White Blood Count 14.8 X10*3/uL (4.8-10.8)
[2024-09-07 14:52] LABS: Partial Thromboplastin Time 38.2 SEC (26.0-36.8)
[2024-09-07 14:53] LABS: Alanine Aminotransferase 30 U/L (0-31); Albumin Level 4.3 g/dL (3.5-5.0); Alkaline Phosphatase 75 U/L (39-117); Anion Gap 13 (12-20); Aspartate Amino Transferase 26 U/L (5-31); Bilirubin Total 0.4 mg/dL (0.0-1.0); Blood Urea Nitrogen 16 mg/dL (9-16); Calcium 9.6 mg/dL (8.4-10.2); Carbon Dioxide 26 mmol/L (22-29); Chloride 104 mmol/L (96-108); Creatinine Clr Calc Pharmacy 59.8; Estimated Glomerular Filt Rate > 60; Glucose Random 129 mg/dL (60-115); Potassium 3.4 mmol/L (3.3-5.1); Sodium 140 mmol/L (135-145); Total Protein 7.3 g/dL (6.5-8.0)
[2024-09-07 14:59] LABS: B Type Natriuretic Peptide 13 pg/mL (<100)
[2024-09-07 15:01] LABS: Troponin-I High Sensitivity 6.3 ng/L (<3.5-17.0)
[2024-09-07 16:14] VITALS: BP 123/67; PULSE 108; RESP 18; TEMP 36.9; O2SAT 98
== END 2024-09-07 16:15 | disposition home or self-care (01) ==
PROVIDERS: Physician Assistant; Emergency Provider Emergency Medicine; PCP Student in an Organized Health Care Education/Training Program
DX: F41.9 Anxiety disorder, unspecified (principal); R07.89 Other chest pain; R00.0 Tachycardia, unspecified; Z79.899 Other long term (current) drug therapy
CPT/HCPCS: 36415; 71045; 80053; 83880; 84484; 85025; 85610; 85730; 93005; 99283

== ENCOUNTER → 2024-09-07 13:53 | Outpatient (BNV) | payer MEDICARE, OTHER, SELFPAY | PROVIDERS: Emergency Provider Emergency Medicine; PCP Student in an Organized Health Care Education/Training Program; Visit Provider Internal Medicine Cardiovascular Disease | DX: R94.31 Abnormal electrocardiogram [ECG] [EKG] (principal) | CPT/HCPCS: 93010 ==

== ENCOUNTER → 2024-09-07 14:07 | Outpatient (BNV) | payer MEDICARE, OTHER, SELFPAY | PROVIDERS: Emergency Provider Emergency Medicine; PCP Student in an Organized Health Care Education/Training Program; Visit Provider Radiology Diagnostic Radiology | DX: R07.9 Chest pain, unspecified (principal); R00.2 Palpitations | CPT/HCPCS: 71045 ==

== ENCOUNTER 2024-10-10 16:37 | Inpatient (IN) | payer MEDICARE, OTHER, SELFPAY ==
[2024-10-10] VITALS (10 sets, daily range): BP systolic 132–176; BP diastolic 85–115; PULSE 98–118; RESP 14–16; TEMP 34.8–37.9; O2SAT 96–100; BMI 26.7
--- NOTE | 2024-10-10 | ECG_ITS ---
Test Reason : UNRESPONSIVE Blood Pressure : / mmHG Vent. Rate : 112 BPM Atrial Rate : 112 BPM P-R Int : 162 ms QRS Dur : 086 ms QT Int : 350 ms P-R-T Axes : 000 -06 046 degrees QTc Int : 477 ms Sinus tachycardia Otherwise normal ECG When compared with ECG of 07-SEP-2024 13:53, Nonspecific T wave abnormality no longer evident in Inferior leads Referred By: Nicholas Rodríguez Electronically Signed By:David Feng
--- NOTE | ~2024-10-10 | XR_ITS ---
EXAMINATION: XR CHEST CLINICAL INFORMATION: Unresponsive COMPARISON: 09/07/2024 TECHNIQUE: Supine portable 5:50 PM view of the chest was obtained. FINDINGS: ET tube tip high within the midline overlying the trachea 7.5 cm above the patrick. Notable elevation hemidiaphragm similar to baseline. Discoid atelectasis changes both bases. No overt CHF. Heart size normal. No pneumothorax. XR/XR chest 1V IMPRESSION: ET tube high as above. Bibasal atelectasis. This result was called at approximately 6:15 PM on the date of exam.. Electronically signed by: Landon Bailon MD 10/10/2024 06:12 PM Y[facility]
--- NOTE | ~2024-10-10 | CT_ITS ---
EXAMINATION: CT HEAD WITHOUT CONTRAST CLINICAL INFORMATION: Unresponsive COMPARISON: None available. TECHNIQUE: Contiguous axial imaging was performed from the skull base to vertex without intravenous administration of contrast. This CT examination was performed using dose optimization techniques as appropriate, variously including the following: *Automated exposure control *Adjustment of mA and/or kV according to patient size (this includes techniques or standardized protocols for targeted exams where dose is matched to indication/reason for exam; i.e. extremities or head) *Use of iterative reconstruction technique DLP: 666 mGy-cm FINDINGS: There is no evidence of acute intracranial hemorrhage or territorial infarction. No abnormal mass effect or midline shift is seen. [place] to white matter differentiation is well preserved. No extra-axial fluid collections are identified. The ventricles are normal in size. There is no abnormal attenuation within the brain parenchyma. The osseous structures and soft tissues are normal. The mastoid air cells and visualized portions of the paranasal sinuses are well-aerated. CT/CT head/brain wo IV con IMPRESSION: No acute intracranial pathology. Electronically signed by: Landon Bailon MD 10/10/2024 05:59 PM [facility] MIRANDA
--- NOTE | ~2024-10-10 | XR_ITS ---
EXAMINATION: XR CHEST CLINICAL INFORMATION: Adjustment of ET COMPARISON: October 10, 2024 from 5: 50 p.m. TECHNIQUE: Frontal view of the chest was obtained. FINDINGS: There is low lung volume bilaterally with elevation of right hemidiaphragm and bibasilar atelectasis. Endotracheal tube is in deeper position with the tip approximately 4.3 cm above the patrick. XR/XR chest 1V IMPRESSION: Deeper position of endotracheal tube. Electronically signed by: Ivette Marshall MD 10/10/2024 07:39 PM [facility]
--- NOTE | ~2024-10-10 | XR_ITS ---
EXAMINATION: XR CHEST 1 VIEW CLINICAL INFORMATION: OGT placement COMPARISON: October 10, 2024 TECHNIQUE: Single portable frontal view. Tubes and lines: Gastric tube passing below the diaphragm into the stomach, the proximal side hole is at the level of the GE junction, this could be probably advanced further by approximately 5 cm for optimal positioning. Lungs and pleura: Crowding of lung marking, platelike atelectasis at lung bases. Endotracheal tube tip is 1 cm from patrick, this could be pulled back by about 5 cm for optimal positioning. Heart and mediastinum: The mediastinum is within normal limits.. Bones/soft tissue: Skeletal structures included are normal for patient's age. XR/XR chest 1V IMPRESSION: 1. Gastric tube could be advanced further by approximately 5 cm for optimal positioning. 2. Endotracheal tube tip is 1 cm from patrick, this could be pulled back by about 5 cm for optimal positioning. 3. Crowding of lung markings, platelike atelectasis at lung bases. 4. Consider repositioning of the endotracheal tube by about 5 cm for optimal positioning. (Referring physician staff is being called, by physician staff assistance, to be alerted of the above critical findings and recommendations.) 10/11/2024 11:08 AM [employer] Electronically signed by: Navid Mayo MD 10/11/2024 12:08 PM [facility]
[2024-10-10 16:50] LABS: Glucose, Whole Blood 112 mg/dL (60-115)
--- NOTE | 2024-10-10 16:50 | ED.GENADULT ---
HPI - General Adult General Chief complaint: Overdose Stated complaint: UNRESPONSIVE, ?OD PER EMS Time Seen by Provider: 10/10/24 16:45 Source: EMS and old records reviewed Mode of arrival: EMS Limitations: altered mental status History of Present Illness ED Provider: DR. Rosado HPI narrative: 69-year-old female brought in by ambulance for evaluation after was found by her family unresponsive in her bed. Reviewing old records in our institution patient with history of depression and anxiety with chronic insomnia, as reported by EMS patient found in her bed snoring with pinpoint pupil satting 80% on room air patient had to be bagged, stable pulse and vital signs otherwise. No CPR was started, on arrival to the ED patient is unresponsive, with a week respiratory effort O2 sat with in the mid 80s without supplemental oxygen patient was intubated. 17:36 more history was obtained from the at the bedside who stated that the patient at her normal baseline until yesterday and lately has been depressed is raising concern of overdosing on her psych medication. Related Data Home Medications ?Medication ?Instructions ?Recorded ?Confirmed pravastatin 20 mg tablet 20 mg PO DAILY 06/29/23 04/20/24 amlodipine 5 mg tablet (Norvasc) 5 mg PO DAILY 01/11/24 04/29/24 multivitamin 1 tab PO DAILY 01/11/24 04/20/24 Previous Rx's ?Medication ?Instructions ?Recorded nortriptyline 75 mg capsule 75 mg PO BEDTIME 30 days #30 caps 05/08/24 olanzapine 20 mg tablet 20 mg PO BEDTIME 30 days #30 tabs 05/08/24 zolpidem 5 mg tablet 5 mg PO BEDTIME PRN WAIT;IF 05/08/24 zyprexa PRN not help 30 days #30 tabs amoxicillin 500 mg tablet 2,000 mg (4 x 500 mg) PO ONCE take 09/20/24 4 tabs by mouth 1 hour prior to dental ppx 1 day #4 tabs Allergies Allergy/AdvReac Type Severity Reaction Status Date / Time No Known Allergies Allergy Verified 10/10/24 16:55 [No Known Allergies*] Review of Systems Review of Systems: Yes Unobtainable due to mental status PMFSH Past Medical History Medical History OCD (obsessive compulsive disorder) MDD (major depressive disorder), recurrent severe, without psychosis Major depressive disorder Arthritis Panic attacks Osteoporosis PTSD (post-traumatic stress disorder) ELIAN (generalized anxiety disorder) PAC (premature atrial contraction) History of anxiety Dyslipidemia Osteoarthritis (arthritis due to wear and tear of joints) Diverticulitis Essential hypertension Hyperkalemia Depression Surgical History Hx of tonsillectomy Hx of tubal ligation History of total right knee replacement Hx of colonoscopy History of carpal tunnel release Family History Family History Mother Dementia Father No problems noted. Social History Social History Household Members: Spouse Housing: House Are you a primary healthcare representative to a significant other at home: No Do you presently have visiting nurse or other home services: No Unable to assess alcohol history related to: Unable to respond Alcohol intake: never Patient Tobacco Use Status: Never used Tobacco e-Cigarette/Vaping Use: Never Used Second Hand Smoke Exposure: No Use of substances other than those prescribed or required for medical reasons: Unable to respond Substance Use Type: Marijuana Advance Directives Date on File: 07/31/20 service: No Current occupational status: retired Current occupation: Right Handed Sexual orientation: Straight/Heterosexual Cognitive needs: No Hearing needs: No Vision needs: No Physical Exam ED Vital Signs: Vital Signs - 24 hr 10/10/24 16:53 10/10/24 17:12 10/10/24 17:15 Temperature 94.6 F L 95.5 F L Pulse Rate 109 H 106 H Respiratory Rate 16 16 Blood Pressure 152/107 H 149/105 H Pulse Oximetry 100 98 Oxygen Delivery Method Room Air Large Bore Nasal Cannula Fraction of Inspired Oxygen 35 10/10/24 18:02 10/10/24 18:20 Temperature 95.5 F L 95.7 F L Pulse Rate 98 98 Respiratory Rate 14 14 Blood Pressure 176/115 H 137/93 H Pulse Oximetry 99 98 Oxygen Delivery Method Mechanical Ventilation Mechanical Ventilation Fraction of Inspired Oxygen BMI result Body Mass Index 26.7 Vital signs have been reviewed and appear to be correct. Blood pressure elevated. Heart rate normal. Respiratory rate normal. Temperature normal. Oxygen saturation normal. Appearance: Unresponsive. No acute distress. Head: Normal external exam. Normocephalic. Atraumatic. No Thomas signs noted. No raccoon eyes noted Eyes: PERRLA. EOMI. Conjunctiva and sclera normal. Eyelids normal. ENT: TM's Normal. Pharynx normal. Uvula midline. Moist mucous membranes. No trismus noted. No drooling noted. No muffled voice noted. Neck: Normal inspection. Neck supple. FROM. No adenopathy. Thyroid Normal. No meningeal signs. No neck mass noted. CVS: Normal heart rate and rhythm. Heart sound normal. No murmurs noted. Pulses normal throughout. Respiratory: No respiratory distress. Painless inspiration. Breath sounds normal. No wheezes/rales/rhonchi noted. Chest nontender. No accessory muscle usage noted or decreased air movement noted. Abdomen: Soft and nontender. Bowel sounds normal in all 4 quadrants. No distention noted. No organomegaly noted. No visible injury noted. Back: No CVA tenderness. Full range of motion noted. Skin: Skin warm and dry. Normal skin color. Normal skin turgor. No rashes/lesions/lacerations noted. Extremities: No lower extremity edema. Extremities exhibit normal range of motion. Extremities nontender. Neuro: Pupil is 1 mm nonreactive bilaterally. Cranial nerve exam: II-XII are grossly intact. No motor deficit. No sensory deficit. Reflexes normal. Course Reevaluation(s) Reevaluation #1: 69-year-old female s/p unresponsive likely secondary to OD and depression, patient is intubated. Labs/CT/chest x-ray/UA is unremarkable. U tox is positive for benzo which could reflect an overdose versus usual use of benzos daily. Will admit to ICU case discussed with Dr. Tucker. ET tube was advanced about 4 cm will repeat chest x-ray. Time: 18:48 Medications Administered Discontinued Medications Generic Name Dose Route Start Last Admin Trade Name Freq PRN Reason Stop Dose Admin Sodium Chloride 1,000 mls @ 999 mls/hr 10/10/24 16:45 10/10/24 18:18 Ns IV 10/10/24 17:45 Infused .Q1H1M ONE Infusion Naloxone HCl 2 mg 10/10/24 16:48 10/10/24 16:52 Naloxone Hcl 2 Mg/2 Ml Syringe IVPUSH 10/10/24 16:49 2 mg ONCE ONE Administration Medical Decision Making Differential Diagnosis Differential Diagnoses: The differential diagnosis associated with the presentation includes (ACS, metabolic encephalopathy, OD, suicidal attempt, electrolyte derangement, severe anemia, pneumonia, pneumothorax, acute respiratory failure, intracranial pathology.) Admission/Observation Consideration of admission/observation: Escalation of care including admission/observation considered Consult Healthcare Provider Management of the patient was discussed with: Hospitalist (Dr. Tucker) Lab Data MDM Lab Attestation statement: I reviewed the patient's lab results. 10/10/24 17:02 10/10/24 17:02 Labs: Lab Results 10/10/24 10/10/24 10/10/24 Range/Units 16:42 17:02 17:09 WBC 13.1 H (4.8-10.8) X10*3/uL RBC 4.77 (4.20-5.50) X10*6/uL Hgb 14.5 (12.0-16.0) g/dl Hct 42.0 (37.0-47.0) % MCV 88.1 (80.0-98.0) fL MCH 30.4 (27.0-33.0) pg MCHC 34.5 (31.0-35.0) g/dl RDW 12.6 (11.0-16.0) % Plt Count 277 (160-400) X10*3/uL MPV 9.2 L (9.4-12.3) fL Immature Gran % (Auto) 0.9 H (0.0-0.4) % Neut % (Auto) 56.9 (45-73) % Lymph % (Auto) 31.7 (20-40) % [place] % (Auto) 9.0 (2-11) % Eos % (Auto) 1.0 (0-4) % Baso % (Auto) 0.5 (0-2) % Lymph # (Auto) 4.1 (1.2-4.9) X10*3/uL [place] # (Auto) 1.2 (0.1-1.2) X10*3/uL Eos # (Auto) 0.1 (0.0-0.4) X10*3/uL Baso # (Auto) 0.1 (0.0-0.2) X10*3/uL Abs Immat Gran (auto) 0.12 H (0.00-0.03) X10*3/uL Absolute Neuts (auto) 7.4 (2.0-8.3) x10*3/uL Absolute Nucleated RBC 0.000 (0.0-0.012) X10*3/uL Nucleated RBC % (auto) 0.0 (0.0-0.2) /100WBC PT 11.4 (10.9-12.4) SEC INR 1.0 (0.9-1.1) VBG pH 7.42 (7.32-7.43) VBG pCO2 48 mmHg VBG pO2 154 mmHg VBG HCO3 31 H (22-26) mmol/L VBG O2 Saturation 99.0 % VBG Base Excess 6.1 mmol/L Sodium 141 (135-145) mmol/L Potassium 4.1 D (3.3-5.1) mmol/L Chloride 104 (96-108) mmol/L Carbon Dioxide 29 (22-29) mmol/L Anion Gap 12 (12-20) BUN 17 H (9-16) mg/dL Creatinine 0.79 (0.5-1.4) mg/dL Estim Creat Clear Calc 77.2 Estimated GFR > 60 POC Glucose 112 (60-115) mg/dL Random Glucose 123 H (60-115) mg/dL Lactic Acid 1.0 (0.5-2.0) mmol/L Calcium 9.2 (8.4-10.2) mg/dL Total Bilirubin 0.3 (0.0-1.0) mg/dL Direct Bilirubin 0.1 (0.0-0.5) mg/dL AST 17 (5-31) U/L ALT 21 (0-31) U/L Alkaline Phosphatase 62 (39-117) U/L Troponin I High Sens < 2.7 D (<3.5-17.0) ng/L Total Protein 6.8 (6.5-8.0) g/dL Albumin 4.0 (3.5-5.0) g/dL Lipase 18 (8-78) U/L Urine Color Urine Appearance Urine pH (5.0-9.0) Ur Specific [place] (1.005-1.025) Urine Protein (Neg-Trace) mg/dL Urine Glucose (UA) (Negative) mg/dL Urine Ketones (Negative) mg/dL Urine Blood (Negative) Urine Nitrite (Negative) Ur Leukocyte Esterase (Negative) Salicylates < 5.0 L (15-30) mg/dL Urine Opiates Screen (Not Detect) Ur Buprenorphine Scrn (Not Detect) ng/mL Ur Oxycodone Screen (Not Detect) ng/mL Urine Methadone Screen (Not Detect) ng/mL Urine Fentanyl Screen (Not Detect) Acetaminophen < 3 (<30) mcg/mL Ur Barbiturates Screen (Not Detect) Ur Phencyclidine Scrn (Not Detect) Ur Amphetamines Screen (Not Detect) U Benzodiazepines Scrn (Not Detect) Urine Cocaine Screen (Not Detect) U Marijuana (THC) Screen (Not Detect) Ethyl Alcohol < 10 mg/dL Influenza Type A (PCR) NEGATIVE (Negative) Influenza Type B (PCR) NEGATIVE (Negative) RSV RNA Qual (PCR) NEGATIVE (Negative) SARS-CoV-2 RNA (RT-PCR) NEGATIVE (Negative) 10/10/24 Range/Units 17:16 WBC (4.8-10.8) X10*3/uL RBC (4.20-5.50) X10*6/uL Hgb (12.0-16.0) g/dl Hct (37.0-47.0) % MCV (80.0-98.0) fL MCH (27.0-33.0) pg MCHC (31.0-35.0) g/dl RDW (11.0-16.0) % Plt Count (160-400) X10*3/uL MPV (9.4-12.3) fL Immature Gran % (Auto) (0.0-0.4) % Neut % (Auto) (45-73) % Lymph % (Auto) (20-40) % [place] % (Auto) (2-11) % Eos % (Auto) (0-4) % Baso % (Auto) (0-2) % Lymph # (Auto) (1.2-4.9) X10*3/uL [place] # (Auto) (0.1-1.2) X10*3/uL Eos # (Auto) (0.0-0.4) X10*3/uL Baso # (Auto) (0.0-0.2) X10*3/uL Abs Immat Gran (auto) (0.00-0.03) X10*3/uL Absolute Neuts (auto) (2.0-8.3) x10*3/uL Absolute Nucleated RBC (0.0-0.012) X10*3/uL Nucleated RBC % (auto) (0.0-0.2) /100WBC PT (10.9-12.4) SEC INR (0.9-1.1) VBG pH (7.32-7.43) VBG pCO2 mmHg VBG pO2 mmHg VBG HCO3 (22-26) mmol/L VBG O2 Saturation % VBG Base Excess mmol/L Sodium (135-145) mmol/L Potassium (3.3-5.1) mmol/L Chloride (96-108) mmol/L Carbon Dioxide (22-29) mmol/L Anion Gap (12-20) BUN (9-16) mg/dL Creatinine (0.5-1.4) mg/dL Estim Creat Clear Calc Estimated GFR POC Glucose (60-115) mg/dL Random Glucose (60-115) mg/dL Lactic Acid (0.5-2.0) mmol/L Calcium (8.4-10.2) mg/dL Total Bilirubin (0.0-1.0) mg/dL Direct Bilirubin (0.0-0.5) mg/dL AST (5-31) U/L ALT (0-31) U/L Alkaline Phosphatase (39-117) U/L Troponin I High Sens (<3.5-17.0) ng/L Total Protein (6.5-8.0) g/dL Albumin (3.5-5.0) g/dL Lipase (8-78) U/L Urine Color Yellow Urine Appearance Clear Urine pH 5.5 (5.0-9.0) Ur Specific [place] 1.015 (1.005-1.025) Urine Protein Negative (Neg-Trace) mg/dL Urine Glucose (UA) Negative (Negative) mg/dL Urine Ketones Negative (Negative) mg/dL Urine Blood Negative (Negative) Urine Nitrite Negative (Negative) Ur Leukocyte Esterase Negative (Negative) Salicylates (15-30) mg/dL Urine Opiates Screen Not Detected (Not Detect) Ur Buprenorphine Scrn Not Detected (Not Detect) ng/mL Ur Oxycodone Screen Not Detected (Not Detect) ng/mL Urine Methadone Screen Not Detected (Not Detect) ng/mL Urine Fentanyl Screen Not Detected (Not Detect) Acetaminophen (<30) mcg/mL Ur Barbiturates Screen Not Detected (Not Detect) Ur Phencyclidine Scrn Not Detected (Not Detect) Ur Amphetamines Screen Not Detected (Not Detect) U Benzodiazepines Scrn POSITIVE H (Not Detect) Urine Cocaine Screen Not Detected (Not Detect) U Marijuana (THC) Screen Not Detected (Not Detect) Ethyl Alcohol mg/dL Influenza Type A (PCR) (Negative) Influenza Type B (PCR) (Negative) RSV RNA Qual (PCR) (Negative) SARS-CoV-2 RNA (RT-PCR) (Negative) Independent Interpretation I performed an independent interpretation of an: Plain X-Ray (Chest:ET tube tip high within the midline overlying the trachea 7.5 cm above the patrick. Notable elevation hemidiaphragm similar to baseline. Discoid atelectasis changes both bases. No overt CHF. Heart size normal. No pneumothorax.) and CT Scan (Head CT: No acute intracranial pathology.) Radiology Impression Discussion of test interpretation with radiology: I have reviewed the radiologist's reading. Discharge Plan Discharge Clinical Impression: Unresponsive, Overdose Patient Disposition: Admitted As Inpatient Print Language: Nepali
[2024-10-10] MEDS: Naloxone HCl 2 MG/2 ML SYRINGE IVPUSH (16:52)
[2024-10-10] MEDS: 0.9 % Sodium Chloride 1,000 ML 999 ML IV (16:53)
--- NOTE | 2024-10-10 17:00 | PC.NURSE ---
comes in with EMS who found pt unresponsive with snoring respirations. hx of accidental Rx drug overdose. strong radial and fem pulses upon arrival. Pt was intubated by Dr. Rosado immediately after arrival at about 1650 - 7.5 tube, 21 at the lip with positive color change. RT at bedside. 18g IV by EMS, another 18g on right arm placed after arrival. labs drawn, ekg done
[2024-10-10 17:11] LABS: MANUAL DIFF FLAG NO
[2024-10-10 17:12] LABS: Basophils Absolute Auto 0.1 X10*3/uL (0.0-0.2); Basophils Percent Auto 0.5 % (0-2); Eosinophils Absolute Auto 0.1 X10*3/uL (0.0-0.4); Hemoglobin 14.5 g/dl (12.0-16.0); Imm Gran Abs Auto 0.12 X10*3/uL (0.00-0.03); Imm Gran Pct Auto 0.9 % (0.0-0.4); Lymphocytes Absolute Auto 4.1 X10*3/uL (1.2-4.9); Lymphocytes Percent Auto 31.7 % (20-40); Mean Corpuscular HGB Conc 34.5 g/dl (31.0-35.0); Mean Corpuscular Hemoglobin 30.4 pg (27.0-33.0); Mean Corpuscular Volume 88.1 fL (80.0-98.0); Mean Platelet Volume 9.2 fL (9.4-12.3); Monocytes Absolute Auto 1.2 X10*3/uL (0.1-1.2); Neutrophils Absolute Auto 7.4 x10*3/uL (2.0-8.3); Neutrophils Percent Auto 56.9 % (45-73); Platelet Count 277 X10*3/uL (160-400); Red Blood Count 4.77 X10*6/uL (4.20-5.50); Red Cell Distribution Width 12.6 % (11.0-16.0); White Blood Count 13.1 X10*3/uL (4.8-10.8)
[2024-10-10 17:13] LABS: Venous Blood Gas Refer to POC result
[2024-10-10 17:14] LABS: VBG Base Excess 6.1 mmol/L; VBG HCO3 31 mmol/L (22-26); VBG pCO2 48 mmHg; VBG pH 7.42 (7.32-7.43); VBG pO2 154 mmHg
[2024-10-10 17:20] LABS: Prothrombin Time 11.4 SEC (10.9-12.4)
--- NOTE | 2024-10-10 17:24 | PC.NURSE ---
vet settings 450 tidal volume 35% o2 5.0 peep 14 RR Temp sensing george placed with about 100ml output. upon placement core temp 94.0 - has warmed to 95.5 with some blankets over 10 minutes - to CT scan now will reassess temp after
[2024-10-10 17:30] LABS: Alanine Aminotransferase 21 U/L (0-31); Alkaline Phosphatase 62 U/L (39-117); Anion Gap 12 (12-20); Aspartate Amino Transferase 17 U/L (5-31); Bilirubin Direct 0.1 mg/dL (0.0-0.5); Bilirubin Total 0.3 mg/dL (0.0-1.0); Blood Urea Nitrogen 17 mg/dL (9-16); Calcium 9.2 mg/dL (8.4-10.2); Carbon Dioxide 29 mmol/L (22-29); Chloride 104 mmol/L (96-108); Creatinine Clr Calc Pharmacy 77.2; Estimated Glomerular Filt Rate > 60; Glucose Random 123 mg/dL (60-115); Lipase 18 U/L (8-78); Potassium 4.1 mmol/L (3.3-5.1); Sodium 141 mmol/L (135-145); Total Protein 6.8 g/dL (6.5-8.0)
[2024-10-10 17:33] LABS: Appearance Urine Clear; Color Urine Yellow; Glucose Urine UA Negative (Negative); Leukocyte Esterase Urine Negative (Negative); Nitrite Urine Negative (Negative); PH 5.5 (5.0-9.0); Specific Gravity - Urine 1.015 (1.005-1.025); Urine Blood Negative (Negative); Urine Ketones Negative (Negative); Urine Protein Negative (Neg-Trace)
[2024-10-10 17:34] LABS: Acetaminophen LAB < 3 mcg/mL (<30); Ethanol < 10 mg/dL; Salicylate < 5.0 mg/dL (15-30)
[2024-10-10 17:35] LABS: Troponin-I High Sensitivity < 2.7 ng/L (<3.5-17.0)
[2024-10-10 17:42] LABS: Amphetamine Screen Urine Not Detected (Not Detect); Barbiturates, Urine Not Detected (Not Detect); Benzodiazepines Screen Urine POSITIVE (Not Detect); Buprenorphine Scr Not Detected (Not Detect); Cannabinoid Screen Urine Not Detected (Not Detect); Cocaine Screen Urine Not Detected (Not Detect); Fentanyl, urine Not Detected (Not Detect); Methadone Screen, Urine Not Detected (Not Detect); Opiate Screen Urine Not Detected (Not Detect); Oxycodone Screen Urine Not Detected (Not Detect); Phencyclidine Screen Urine Not Detected (Not Detect)
[2024-10-10 18:02] LABS: Influenza A PCR NEGATIVE (Negative); Influenza B PCR NEGATIVE (Negative); Resp Syncy Virus RNA Qual PCR NEGATIVE (Negative); SARS COV2 PCR INHOUSE NEGATIVE (Negative)
--- NOTE | 2024-10-10 18:20 | PC.NURSE ---
pt RASS -5. No response to verbal or painful stimulation, no biting tubes, no movement of jaw or arms. occastional movement of leg. Not fighting vent. After discussion with Dr. Rosado, don't start ordered propfol drip unless needed for sedation
--- NOTE | 2024-10-10 19:13 | PC.NURSE ---
FLYNN Masterson attempted to place OG tube with no success, Dr. Rosado notified, per MD OG tube is not needed at this time.
--- NOTE | 2024-10-10 19:56 | P.HPCC_ITS ---
History of Present Illness Date of Service: 10/10/24 Attending physician on admission: Vega Tucker Chief Complaint: Unresponsive The patient is a 69-year-old female with a past medical history of depression, mood disorder, OCD, hypertension, hyperlipidemia, osteoporosis and prior psychiatry admission for overdose with benzos and olanzapine in March of 2024.? Presented to the emergency department today via EMS unresponsive.? According to EMS and patient ,? she was found unresponsive in bed,? pupils were pinpoint,? satting 80%? on room air,? requiring bag-mask ventilation en route to the hospital? and intubated emergently on arrival.? Patient to be hypothermic Tlow 94.7 Patient?s stated that the patient normal baseline until yesterday and lately has been depressed raising concern of overdosing on her psych medication. He states she takes about 5? different? psych medications,? but unsure of the names,? he states the bottles are not empty,? but will bring the medication bottles tomorrow to the hospital.? ?UA was positive for benzos only.?? ?EKG IMAGING:? ?HEAD CT: ? no acute findings ?Chest x-ray:? no acute findings ED course: received a 1L bolus Review of Systems 2 Review of Systems: Yes unobtainable due to endotracheal tube PMFSH Past Medical History Medical History OCD (obsessive compulsive disorder) MDD (major depressive disorder), recurrent severe, without psychosis Major depressive disorder Arthritis Panic attacks Osteoporosis PTSD (post-traumatic stress disorder) ELIAN (generalized anxiety disorder) PAC (premature atrial contraction) History of anxiety Dyslipidemia Osteoarthritis (arthritis due to wear and tear of joints) Diverticulitis Essential hypertension Hyperkalemia Depression Family History Family History Mother Dementia Father No problems noted. Surgical History Surgical History Hx of tonsillectomy Hx of tubal ligation History of total right knee replacement Hx of colonoscopy History of carpal tunnel release Social History Social History Household Members: None Housing: Unknown / Unable to assess Are you a primary managed care specialist to a significant other at home: No Unable to assess alcohol history related to: Unable to respond Alcohol intake: never Patient Tobacco Use Status: Never used Tobacco e-Cigarette/Vaping Use: Never Used Second Hand Smoke Exposure: No Use of substances other than those prescribed or required for medical reasons: Unable to respond Substance Use Type: Marijuana Currently Displaying Signs/Symptoms of Drug Intoxication Withdrawal: No Advance Directives: Yes Advance Directives Information Provided: No Advance Directives on File: Yes Advance Directives Date on File: 10/11/24 Do you have a plan to hurt others: No Plan Recently lost weight without trying: Unsure Nutrition Risks: No Nutritional Risk Patient : No : No Poor oral hygiene: Yes service: No Current occupational status: retired Current occupation: Right Handed Sexual orientation: Straight/Heterosexual Cognitive needs: No Hearing needs: No Vision needs: No Meds Allergies Allergy/AdvReac Type Severity Reaction Status Date / Time No Known Allergies Allergy Verified 10/10/24 16:55 [No Known Allergies*] Active Medications: Current Medications Chlorhexidine Gluconate (Chlorhexidine Gluc Oral Rinse 15 Ml Mouthwash) 15 ml BUCCAL TID HARESH Enoxaparin Sodium (Enoxaparin Sodium 40 Mg/0.4 Ml Syringe) 40 mg SUBCUT Q24H HARESH Famotidine (Famotidine/Pf 20 Mg/2 Ml Vial) 20 mg IVPUSH DAILY HARESH Propofol (Diprivan) 1,000 mg in 100 mls @ 0 mls/hr IVCONT .Q0M HARESH; Protocol Home Medications ?Medication ?Instructions ?Recorded ?Confirmed ?Last Taken ?Type pravastatin 20 mg tablet 20 mg PO DAILY 06/29/23 10/11/24 04/20/24 History amlodipine 5 mg tablet (Norvasc) 5 mg PO DAILY 01/11/24 10/11/24 1 Day Ago History ~04/28/24 5 multivitamin 1 tab PO DAILY 01/11/24 10/11/24 04/20/24 History alprazolam 0.5 mg tablet 0.5 mg PO BID PRN Anxiety 10/10/24 10/11/24 Unknown History bupropion HCl 75 mg tablet 75 mg PO DAILY 10/10/24 10/11/24 Unknown History hydroxyzine HCl 25 mg tablet 25 mg PO TID PRN Anxiety 10/10/24 10/10/24 Unknown History metoprolol succinate 50 mg 50 mg PO DAILY 10/10/24 10/11/24 Unknown History tablet,extended release 24 hr nortriptyline 25 mg capsule 25 mg PO BID 10/10/24 10/11/24 Unknown History sertraline 100 mg tablet 200 mg PO BEDTIME 10/10/24 10/11/24 Unknown History trazodone 100 mg tablet 100 mg PO BEDTIME PRN Insomnia 10/10/24 10/11/24 Unknown History zolpidem 5 mg tablet 10 mg PO BEDTIME PRN INSOMNIA IF 10/11/24 10/11/24 Unknown History OLANZAPINE NOT HELPING AFTER 1 HOUR Physical Exam 2 Vital Signs: Vital Signs: Last Vital Signs Temp 95.7 F L 10/10/24 18:20 Pulse 98 10/10/24 18:20 Resp 14 10/10/24 18:20 BP 137/93 H 10/10/24 18:20 Pulse Ox 98 10/10/24 18:20 O2 Del Method Mechanical Ventil ation 10/10/24 18:20 FiO2 35 10/10/24 17:12 BMI result Body Mass Index 26.7 ?General:? Patient intubated ?HEENT:? Head is normocephalic, atraumatic, pupils are pinpoint, equal, non reactive to light accommodation bilaterally.?Buccal mucosa is dry, Neck is supple ?Cardiac:? Clear S1-S2, no murmurs rubs or gallops. ?Pulmonary:? Clear to auscultation, no wheezes, rales or rhonchi. ?Abdomen:? ?Abdomen soft, non-tender, non-distended. Normal bowel sounds. No pulsatile mass. No hepatosplenomegaly. ?Musculoskeletal:? Withdraws to pain. Gait not assessed at this point. ?Neurologic:? Pinpoint pupils, Motor strength as above.?? ?Skin:? Intact, no lesions, edema, erythema, clubbing or cyanosis.? No ulcers. Vascular:? 2+ pulses upper and lower extremities distally.? Results Labs 10/12/24 05:01 10/12/24 05:01 Labs: Laboratory Results - last 24 hr 10/10/24 10/10/24 10/10/24 16:42 17:02 17:09 MCV 88.1 MCH 30.4 MCHC 34.5 RDW 12.6 Plt Count 277 MPV 9.2 L Immature Gran % (Auto) 0.9 H Neut % (Auto) 56.9 Lymph % (Auto) 31.7 [place] % (Auto) 9.0 Eos % (Auto) 1.0 Baso % (Auto) 0.5 Lymph # (Auto) 4.1 [place] # (Auto) 1.2 Eos # (Auto) 0.1 Baso # (Auto) 0.1 Abs Immat Gran (auto) 0.12 H Absolute Neuts (auto) 7.4 Absolute Nucleated RBC 0.000 Nucleated RBC % (auto) 0.0 PT 11.4 INR 1.0 VBG pH 7.42 VBG pCO2 48 VBG pO2 154 VBG HCO3 31 H VBG O2 Saturation 99.0 VBG Base Excess 6.1 Anion Gap 12 Estim Creat Clear Calc 77.2 Estimated GFR > 60 POC Glucose 112 Random Glucose 123 H Lactic Acid 1.0 Calcium 9.2 Total Bilirubin 0.3 Direct Bilirubin 0.1 AST 17 ALT 21 Alkaline Phosphatase 62 Troponin I High Sens < 2.7 D Total Protein 6.8 Albumin 4.0 Lipase 18 Urine Color Urine Appearance Urine pH Ur Specific [place] Urine Protein Urine Glucose (UA) Urine Ketones Urine Blood Urine Nitrite Ur Leukocyte Esterase Salicylates < 5.0 L Urine Opiates Screen Ur Buprenorphine Scrn Ur Oxycodone Screen Urine Methadone Screen Urine Fentanyl Screen Acetaminophen < 3 Ur Barbiturates Screen Ur Phencyclidine Scrn Ur Amphetamines Screen U Benzodiazepines Scrn Urine Cocaine Screen U Marijuana (THC) Screen Ethyl Alcohol < 10 Influenza Type A (PCR) NEGATIVE Influenza Type B (PCR) NEGATIVE RSV RNA Qual (PCR) NEGATIVE SARS-CoV-2 RNA (RT-PCR) NEGATIVE 10/10/24 17:16 MCV MCH MCHC RDW Plt Count MPV Immature Gran % (Auto) Neut % (Auto) Lymph % (Auto) [place] % (Auto) Eos % (Auto) Baso % (Auto) Lymph # (Auto) [place] # (Auto) Eos # (Auto) Baso # (Auto) Abs Immat Gran (auto) Absolute Neuts (auto) Absolute Nucleated RBC Nucleated RBC % (auto) PT INR VBG pH VBG pCO2 VBG pO2 VBG HCO3 VBG O2 Saturation VBG Base Excess Anion Gap Estim Creat Clear Calc Estimated GFR POC Glucose Random Glucose Lactic Acid Calcium Total Bilirubin Direct Bilirubin AST ALT Alkaline Phosphatase Troponin I High Sens Total Protein Albumin Lipase Urine Color Yellow Urine Appearance Clear Urine pH 5.5 Ur Specific [place] 1.015 Urine Protein Negative Urine Glucose (UA) Negative Urine Ketones Negative Urine Blood Negative Urine Nitrite Negative Ur Leukocyte Esterase Negative Salicylates Urine Opiates Screen Not Detected Ur Buprenorphine Scrn Not Detected Ur Oxycodone Screen Not Detected Urine Methadone Screen Not Detected Urine Fentanyl Screen Not Detected Acetaminophen Ur Barbiturates Screen Not Detected Ur Phencyclidine Scrn Not Detected Ur Amphetamines Screen Not Detected U Benzodiazepines Scrn POSITIVE H Urine Cocaine Screen Not Detected U Marijuana (THC) Screen Not Detected Ethyl Alcohol Influenza Type A (PCR) Influenza Type B (PCR) RSV RNA Qual (PCR) SARS-CoV-2 RNA (RT-PCR) Imaging Radiologist's Impressions: Impressions Chest X-Ray 10/10/24 16:46 IMPRESSION: ET tube high as above. Bibasal atelectasis. This result was called at approximately 6:15 PM on the date of exam.. Electronically signed by: Landon Bailon MD 10/10/2024 06:12 PM EST RP Head CT 10/10/24 17:30 IMPRESSION: No acute intracranial pathology. Electronically signed by: Landon Bailon MD 10/10/2024 05:59 PM EST RP Chest X-Ray 10/10/24 19:10 IMPRESSION: Deeper position of endotracheal tube. Electronically signed by: Ivette Marshall MD 10/10/2024 07:39 PM EST RP Assessment and Plan (1) Overdose: Status: Acute (2) Acute hypoxic respiratory failure: Status: Inactive (3) Hypothermia: Status: Acute (4) Toxic encephalopathy: Status: Acute Plan 69-year-old female with a past medical history of depression, mood disorder, OCD, hypertension, hyperlipidemia, osteoporosis and prior overdose? admitted to ICU for management of acute hypoxic respiratory failure from? benzodiazepine overdose Neuro:? ?toxic encephalopathy- ? From? from benzodiazepine? overdose, should improve. Head CT neg. Cont frequent neuro assessments ?? Cardiac:? ?Underlying history of hypertension:? will hold medications at this time.? Pulmonary: ?Acute hypoxic respiratory? failure: ? from? benzo overdose,? UA is positive for benzos,? patient does have a history of overdose in the past.? will bring complete list of patient?s medication tomorrow.? QTC/? QRS stable.? We will continue? check frequent EKGs.? wean off vent as tolerated.?? Renal:? ?locations? Endo:? GI: ? No acute issues ID:?? ?Hypothermia:? no evidence of? infection,? mild leukocytosis seems to be chronic. ? Hypothermia likely from overdose.? Continue rewarming as tolerated.? Heme/Onc:? No acute issues. Psych: ? overdose:? see pulmonary plan Miscellaneous:? No acute issues. Prophylaxis:? Lovenox? Code status: Full code? Critical care time: X 60 min Case discussed with Attending Dr Tucker?
[2024-10-10] MEDS: Enoxaparin Sodium 40 MG/0.4 ML SYRINGE SUBCUT (19:57)
--- NOTE | 2024-10-10 20:41 | PC.NURSE ---
Core temp 98.2, kamaljit becker/sal.
--- NOTE | 2024-10-10 20:48 | ECG_ITS ---
Test Reason : CP Blood Pressure : / mmHG Vent. Rate : 114 BPM Atrial Rate : 114 BPM P-R Int : 156 ms QRS Dur : 082 ms QT Int : 346 ms P-R-T Axes : -26 025 056 degrees QTc Int : 476 ms Sinus tachycardia Otherwise normal ECG No previous ECGs available Referred By: Vega Tucker Electronically Signed By:David Feng
[2024-10-10] MEDS: Chlorhexidine Gluc Oral Rinse 15 ML MOUTHWASH BUCCAL (21:43)
--- NOTE | 2024-10-10 22:55 | PC.RT ---
pt transported from er to icu without incident
[2024-10-11] VITALS (34 sets, daily range): BP systolic 102–161; BP diastolic 58–101; PULSE 114–131; RESP 12–20; TEMP 35–38.6; O2SAT 94–97; BMI 22.5
[2024-10-11 05:22] LABS: VBG Base Excess 9.7 mmol/L; VBG HCO3 33 mmol/L (22-26); VBG pCO2 39 mmHg; VBG pH 7.53 (7.32-7.43); VBG pO2 47 mmHg
[2024-10-11 05:24] LABS: Venous Blood Gas Refer to POC result
[2024-10-11 05:29] LABS: Basophils Absolute Auto 0.1 X10*3/uL (0.0-0.2); Basophils Percent Auto 0.3 % (0-2); Eosinophils Percent Auto 0.2 % (0-4); Hematocrit 41.5 % (37.0-47.0); Hemoglobin 14.3 g/dl (12.0-16.0); Imm Gran Abs Auto 0.13 X10*3/uL (0.00-0.03); Imm Gran Pct Auto 0.8 % (0.0-0.4); Lymphocytes Percent Auto 17.3 % (20-40); Mean Corpuscular HGB Conc 34.5 g/dl (31.0-35.0); Mean Corpuscular Hemoglobin 30.8 pg (27.0-33.0); Mean Corpuscular Volume 89.4 fL (80.0-98.0); Mean Platelet Volume 12.2 fL (9.4-12.3); Monocytes Absolute Auto 1.2 X10*3/uL (0.1-1.2); Monocytes Percent Auto 6.7 % (2-11); Neutrophils Absolute Auto 12.8 x10*3/uL (2.0-8.3); Neutrophils Percent Auto 74.7 % (45-73); PLT CLUMP 1; Red Blood Count 4.64 X10*6/uL (4.20-5.50); Red Cell Distribution Width 13.2 % (11.0-16.0); SCAN SMEAR FLAG 1
[2024-10-11 05:30] LABS: MANUAL DIFF FLAG NO; White Blood Count 17.1 X10*3/uL (4.8-10.8)
[2024-10-11 05:48] LABS: Alanine Aminotransferase 17 U/L (0-31); Albumin Level 3.7 g/dL (3.5-5.0); Alkaline Phosphatase 55 U/L (39-117); Anion Gap 14 (12-20); Aspartate Amino Transferase 33 U/L (5-31); Bilirubin Total 0.6 mg/dL (0.0-1.0); Blood Urea Nitrogen 15 mg/dL (9-16); Calcium 8.9 mg/dL (8.4-10.2); Carbon Dioxide 24 mmol/L (22-29); Chloride 106 mmol/L (96-108); Creatinine Clr Calc Pharmacy 80.2; Estimated Glomerular Filt Rate > 60; Glucose Random 111 mg/dL (60-115); Phosphorus 3.8 mg/dL (2.7-4.5); Potassium 4.6 mmol/L (3.3-5.1); Sodium 139 mmol/L (135-145); Total Protein 6.9 g/dL (6.5-8.0)
[2024-10-11] MEDS: Famotidine/PF 20 MG/2 ML VIAL IVPUSH (07:43)
[2024-10-11] MEDS: Chlorhexidine Gluc Oral Rinse 15 ML MOUTHWASH BUCCAL ×3 (07:43→19:35)
--- NOTE | 2024-10-11 08:44 | PHA.MEDREC ---
Pharmacy Consult ? Medication Reconciliation Pharmacy has completed the medication reconciliation. Spoke with who brought in pt rx bottles and pill minder from home. Reviewed home meds with him and used pharmacy claim history and medication bottles to complete med rec.
--- NOTE | 2024-10-11 11:02 | PM.CCPN ---
Subjective Subjective Date of Service: 10/11/24 Critical Care Time (minutes): 35 Physical Exam Vital Signs: Vital Signs: Last Vital Signs Temp 100.8 F H 10/11/24 10:00 Pulse 120 H 10/11/24 10:00 Resp 18 10/11/24 10:00 BP 124/85 10/11/24 10:00 Pulse Ox 96 10/11/24 10:00 O2 Del Method Mechanical Ventil ation 10/11/24 10:00 FiO2 30 10/11/24 10:00 BMI result Body Mass Index 22.5 General: Unresponsive, comfortable Nutritional Appearance: well nourished and overweight Eyes: appearance normal, both eyes and all related structures; Alignment and Position: alignment normal and position normal Neck: No lymphadenopathy, no thyromegaly Resp: bilateral air entry equal, occasional added sounds present Cardio: Regular rate, regular rhythm; Heart sounds: S1 normal heart sound present and S2 normal heart sound present GI: soft, nontender, no guarding, no hepatosplenomegaly : bladder normal to inspection, bladder normal to palpation, no renal angle tenderness Skin: no rashes or lesions noted and elasticity normal Neuro: Unresponsive, no focal deficits on the ventilator Objective Data Labs 10/11/24 05:16 10/11/24 05:16 Labs: Laboratory Results - last 24 hr 10/10/24 10/10/24 10/10/24 16:42 17:02 17:09 WBC 13.1 H RBC 4.77 Hgb 14.5 Hct 42.0 MCV 88.1 MCH 30.4 MCHC 34.5 RDW 12.6 Plt Count 277 MPV 9.2 L Immature Gran % (Auto) 0.9 H Neut % (Auto) 56.9 Lymph % (Auto) 31.7 [place] % (Auto) 9.0 Eos % (Auto) 1.0 Baso % (Auto) 0.5 Lymph # (Auto) 4.1 [place] # (Auto) 1.2 Eos # (Auto) 0.1 Baso # (Auto) 0.1 Abs Immat Gran (auto) 0.12 H Absolute Neuts (auto) 7.4 Absolute Nucleated RBC 0.000 Nucleated RBC % (auto) 0.0 PT 11.4 INR 1.0 VBG pH 7.42 VBG pCO2 48 VBG pO2 154 VBG HCO3 31 H VBG O2 Saturation 99.0 VBG Base Excess 6.1 Sodium 141 Potassium 4.1 D Chloride 104 Carbon Dioxide 29 Anion Gap 12 BUN 17 H Creatinine 0.79 Estim Creat Clear Calc 77.2 Estimated GFR > 60 POC Glucose 112 Random Glucose 123 H Lactic Acid 1.0 Calcium 9.2 Phosphorus Magnesium Total Bilirubin 0.3 Direct Bilirubin 0.1 AST 17 ALT 21 Alkaline Phosphatase 62 Troponin I High Sens < 2.7 D Total Protein 6.8 Albumin 4.0 Lipase 18 Urine Color Urine Appearance Urine pH Ur Specific [place] Urine Protein Urine Glucose (UA) Urine Ketones Urine Blood Urine Nitrite Ur Leukocyte Esterase Salicylates < 5.0 L Urine Opiates Screen Ur Buprenorphine Scrn Ur Oxycodone Screen Urine Methadone Screen Urine Fentanyl Screen Acetaminophen < 3 Ur Barbiturates Screen Ur Phencyclidine Scrn Ur Amphetamines Screen U Benzodiazepines Scrn Urine Cocaine Screen U Marijuana (THC) Screen Ethyl Alcohol < 10 Influenza Type A (PCR) NEGATIVE Influenza Type B (PCR) NEGATIVE RSV RNA Qual (PCR) NEGATIVE SARS-CoV-2 RNA (RT-PCR) NEGATIVE 10/10/24 10/11/24 10/11/24 17:16 05:12 05:16 WBC 17.1 H RBC 4.64 Hgb 14.3 Hct 41.5 MCV 89.4 MCH 30.8 MCHC 34.5 RDW 13.2 Plt Count MPV 12.2 Immature Gran % (Auto) 0.8 H Neut % (Auto) 74.7 H Lymph % (Auto) 17.3 L [place] % (Auto) 6.7 Eos % (Auto) 0.2 Baso % (Auto) 0.3 Lymph # (Auto) 3.0 [place] # (Auto) 1.2 Eos # (Auto) 0.0 Baso # (Auto) 0.1 Abs Immat Gran (auto) 0.13 H Absolute Neuts (auto) 12.8 H Absolute Nucleated RBC 0.000 Nucleated RBC % (auto) 0.0 PT INR VBG pH 7.53 H VBG pCO2 39 VBG pO2 47 VBG HCO3 33 H VBG O2 Saturation 79.0 VBG Base Excess 9.7 Sodium 139 Potassium 4.6 Chloride 106 Carbon Dioxide 24 Anion Gap 14 BUN 15 Creatinine 0.76 Estim Creat Clear Calc 80.2 Estimated GFR > 60 POC Glucose Random Glucose 111 Lactic Acid Calcium 8.9 Phosphorus 3.8 Magnesium 2.0 Total Bilirubin 0.6 Direct Bilirubin AST 33 H ALT 17 Alkaline Phosphatase 55 Troponin I High Sens Total Protein 6.9 Albumin 3.7 Lipase Urine Color Yellow Urine Appearance Clear Urine pH 5.5 Ur Specific [place] 1.015 Urine Protein Negative Urine Glucose (UA) Negative Urine Ketones Negative Urine Blood Negative Urine Nitrite Negative Ur Leukocyte Esterase Negative Salicylates Urine Opiates Screen Not Detected Ur Buprenorphine Scrn Not Detected Ur Oxycodone Screen Not Detected Urine Methadone Screen Not Detected Urine Fentanyl Screen Not Detected Acetaminophen Ur Barbiturates Screen Not Detected Ur Phencyclidine Scrn Not Detected Ur Amphetamines Screen Not Detected U Benzodiazepines Scrn POSITIVE H Urine Cocaine Screen Not Detected U Marijuana (THC) Screen Not Detected Ethyl Alcohol Influenza Type A (PCR) Influenza Type B (PCR) RSV RNA Qual (PCR) SARS-CoV-2 RNA (RT-PCR) Progress Note: A&P Assessment and plan (1) MDD (major depressive disorder), recurrent severe, without psychosis: Status: Acute (2) PTSD (post-traumatic stress disorder): Status: Suspected (3) ELIAN (generalized anxiety disorder): Status: Acute (4) Panic disorder: Status: Acute (5) Toxic encephalopathy: Status: Acute (6) Unresponsive: Status: Acute Plan Neuro: Acute encephalopathy possibly due to toxic metabolic encephalopathy from medication overdose Not on any sedation CT head negative for any acute intracranial pathology Close neurological status monitoring in the ICU every hour Cardiac: Blood pressure stable Respiratory: Acute hypoxemic respiratory failure due to poor respiratory drive Currently on ventilator support On PRVC mode FiO2[25%], PEEP 5, TV 360, RR 20 Peak pressures and plateau pressures are under the curve Ventilator management bundle with head end elevation, aspiration precaution, chlorhexidine mouthwash, daily awakening trials, daily spontaneous breathing trials Not a candidate for weaning from ventilator due to poor mental status GI: We will start on tube feeds Renal: Creatinine normal We will closely monitor I's and O's Avoid nephrotoxic medications Heme: Chronic anemia, closely monitor H&H, transfuse for hemoglobin less than 7 grams/deciliter Endocrine: Blood sugars under control Sliding scale insulin as needed Infectious disease: Pancultures negative so far Has low-grade fever, can be medication induced if she took something other than benzodiazepines We will start on empiric ceftriaxone Musculoskeletal: Decubitus ulcer prevention protocol Lines: Peripheral Prophylaxis: Lovenox, pantoprazole Quality Stroke Does the patient have a stroke diagnosis?: No VTE Prior VTE?: No VTE Risk Level:: Medical - moderate - high VTE Device Contraindication: N/A - Device Ordered VTE Drug Contraindication: N/A - Med Ordered
--- NOTE | 2024-10-11 11:40 | MHC.CM.PN ---
Addendum entered by Maira Kidd 10/11/24 12:20: Copy of HCP obtained from [facility]. Copy placed in chart. Original Note: Attempted to meet with patient in regards to discharge planning. Patient is currently intubated/vented in ICU due to an intentional overdose. Spoke with patient's , José Miguel, via telephone at [phone]. Patient lives with José Miguel, ambulates independently and had no services prior to coming to the hospital. Patient still drives. PCP verified. Copy of HCP requested from [facility]. IMM explained and left at patient's bedside. José Miguel aware crisis eval will be needed when patient is medically stable cleared due to overdose. José Miguel verbalized understanding. Patient has a history of mental health issues and has been to inpatient psych in the past. Continue to monitor for d/c needs.
[2024-10-11] MEDS: cefTRIAXone sodium 2 GM VIAL IVPUSH (12:22)
[2024-10-11] MEDS: Acetaminophen Oral Liquid 650 MG/20.3 ML SOLUTION PO (12:22)
[2024-10-11] MEDS: HYDROmorphone HCl 0.5 MG/0.5 ML SYRINGE IVPUSH (16:40)
[2024-10-11] MEDS: Enoxaparin Sodium 40 MG/0.4 ML SYRINGE SUBCUT (19:35)
[2024-10-12] VITALS (19 sets, daily range): BP systolic 102–154; BP diastolic 66–104; PULSE 91–147; RESP 12–20; TEMP 35–38.3; O2SAT 91–97; BMI 20.7; BMI 20.8
[2024-10-12] MEDS: Metoprolol Tartrate 5 MG/5 ML VIAL IVPUSH (02:41)
[2024-10-12 05:13] LABS: VBG HCO3 40 mmol/L (22-26); VBG pCO2 44 mmHg; VBG pH 7.56 (7.32-7.43); VBG pO2 85 mmHg
[2024-10-12 05:19] LABS: Venous Blood Gas Refer to POC result
[2024-10-12 05:38] LABS: MANUAL DIFF FLAG NO
[2024-10-12 05:40] LABS: Basophils Absolute Auto 0.1 X10*3/uL (0.0-0.2); Basophils Percent Auto 0.4 % (0-2); Eosinophils Percent Auto 0.3 % (0-4); Hemoglobin 13.5 g/dl (12.0-16.0); Imm Gran Abs Auto 0.12 X10*3/uL (0.00-0.03); Imm Gran Pct Auto 0.8 % (0.0-0.4); Lymphocytes Absolute Auto 2.4 X10*3/uL (1.2-4.9); Lymphocytes Percent Auto 14.9 % (20-40); Mean Corpuscular HGB Conc 33.8 g/dl (31.0-35.0); Mean Corpuscular Hemoglobin 30.5 pg (27.0-33.0); Mean Corpuscular Volume 90.3 fL (80.0-98.0); Mean Platelet Volume 9.7 fL (9.4-12.3); Monocytes Absolute Auto 1.3 X10*3/uL (0.1-1.2); Monocytes Percent Auto 8.2 % (2-11); Neutrophils Absolute Auto 12.1 x10*3/uL (2.0-8.3); Neutrophils Percent Auto 75.4 % (45-73); Platelet Count 267 X10*3/uL (160-400); Red Blood Count 4.43 X10*6/uL (4.20-5.50); Red Cell Distribution Width 13.2 % (11.0-16.0)
[2024-10-12 05:58] LABS: Albumin Level 3.7 g/dL (3.5-5.0); Anion Gap 15 (12-20); Blood Urea Nitrogen 16 mg/dL (9-16); Calcium 8.5 mg/dL (8.4-10.2); Carbon Dioxide 23 mmol/L (22-29); Chloride 106 mmol/L (96-108); Creatinine Clr Calc Pharmacy 78.5; Estimated Glomerular Filt Rate > 60; Glucose Random 122 mg/dL (60-115); Magnesium 2.2 mg/dL (1.6-2.6); Phosphorus 4.4 mg/dL (2.7-4.5); Potassium 3.8 mmol/L (3.3-5.1); Sodium 140 mmol/L (135-145)
[2024-10-12] MEDS: Famotidine/PF 20 MG/2 ML VIAL IVPUSH (08:04)
[2024-10-12] MEDS: Chlorhexidine Gluc Oral Rinse 15 ML MOUTHWASH BUCCAL (08:04)
--- NOTE | 2024-10-12 09:34 | PM.CCPN ---
Subjective Subjective Date of Service: 10/12/24 Interval History: An year old lady with underlying history of depression, OCD, hypertension, prior psychiatric admission for benzodiazepines/olanzapine overdose in April 10 admitted poor 02/05/2024 with benzodiazepine overdose requiring intubation ventilatory support. Extubated uneventfully this a.m. No events overnight. Critical Care Time (minutes): 45 Physical Exam Vital Signs: Vital Signs: Last Vital Signs Temp 100.6 F H 10/12/24 09:00 Pulse 98 10/12/24 09:00 Resp 20 10/12/24 09:00 BP 144/84 H 10/12/24 09:00 Pulse Ox 96 10/12/24 09:00 O2 Del Method Nasal Cannula 10/12/24 09:00 O2 Flow Rate 2 10/12/24 09:00 FiO2 25 10/12/24 08:00 BMI result Body Mass Index 20.7 Const: General: no acute distress, alert and awake Eyes: Sclerae: sclerae normal EOM: EOMs intact bilaterally Neck: Neck: Yes no lymphadenopathy, Yes trachea midline and Yes supple Resp: Effort & Inspection: normal respiratory effort and no respiratory distress Auscultation: clear to auscultation bilaterally Cardio: Rate: regular rate Rhythm: regular rhythm Heart sounds: no gallops, no murmurs and no rubs GI: Palpation (GI): Soft to palpation and Other GI palpation findings present ( Nontender) Auscultation: normal bowel sounds Extrem: General: Yes no pedal edema, No clubbing and No cyanosis Objective Data Labs 10/12/24 05:01 10/12/24 05:01 Labs: Laboratory Results - last 24 hr 10/12/24 10/12/24 05:01 05:02 WBC 16.0 H RBC 4.43 Hgb 13.5 Hct 40.0 MCV 90.3 MCH 30.5 MCHC 33.8 RDW 13.2 Plt Count 267 MPV 9.7 Immature Gran % (Auto) 0.8 H Neut % (Auto) 75.4 H Lymph % (Auto) 14.9 L [place] % (Auto) 8.2 Eos % (Auto) 0.3 Baso % (Auto) 0.4 Lymph # (Auto) 2.4 [place] # (Auto) 1.3 H Eos # (Auto) 0.0 Baso # (Auto) 0.1 Abs Immat Gran (auto) 0.12 H Absolute Neuts (auto) 12.1 H Absolute Nucleated RBC 0.000 Nucleated RBC % (auto) 0.0 VBG pH 7.56 H VBG pCO2 44 VBG pO2 85 VBG HCO3 40 H VBG O2 Saturation 99.0 VBG Base Excess 16.0 Sodium 140 Potassium 3.8 Chloride 106 Carbon Dioxide 23 Anion Gap 15 BUN 16 Creatinine 0.71 Estim Creat Clear Calc 78.5 Estimated GFR > 60 Random Glucose 122 H Calcium 8.5 Phosphorus 4.4 Magnesium 2.2 Albumin 3.7 Microbiology Microbiology Results: Microbiology 10/10/24 17:16 Blood - Venous Blood Culture - Preliminary No growth after 24 hours. 10/10/24 17:02 Blood - Venous Blood Culture - Preliminary No growth after 24 hours. Progress Note: A&P Assessment and plan (1) MDD (major depressive disorder), recurrent severe, without psychosis: Status: Acute (2) Overdose: Status: Acute Plan Assessment: 69-year-old lady admitted with intentional benzodiazepine overdose initially ventilatory support, now extubated. Plan: Neuro: No acute issues. Cardiac: No acute issues. Pulmonary: Initially requiring over-sedation secondary to intentional benzodiazepine overdose. Extubated this a.m.. Renal: No acute issues. Endo: No acute issues. GI: No acute issues. ID: No acute issues Heme/Onc: No acute issues. Psych: Intentional benzodiazepine overdose on the background of prior history of intentional overdoses. One-to-one sitter. Psychiatric evaluation. Miscellaneous: No acute issues. Prophylaxis: Heparin Diet: Regular Critical care time spent: 45 minutes Quality Stroke Does the patient have a stroke diagnosis?: No VTE Prior VTE?: No VTE Risk Level:: Medical - moderate - high VTE Device Contraindication: N/A - Device Ordered VTE Drug Contraindication: N/A - Med Ordered
--- NOTE | 2024-10-12 11:12 | MHC.CARE ---
CARE Team receives consult request from ICU provider. Pt not yet medically cleared and is being transferred to [facility]. Please refer to CARE Team when medically cleared and able to discharge home.
--- NOTE | 2024-10-12 13:55 | MHC.SL.SWA ---
Speech Pathologist Impression: Risk of Aspiration Due to: Hx of Recent Extubation Dysphasia Diet Status: Liquid Consistency and Strategies for Safe Swallow: Liquid Intake Recommendation: Thin Liquid Intake Strategies: No Straws Solid Food Consistency: Dietary Recommendations: Chopped/Advanced (NDD3) Additional Modifications to Solid Foods: Patient currently requires 1-1 assistance with meal, which will likely improve when generalized weakness from intubation resolves Oral Medication Intake: Whole with Puree Please contact the pharmacy regarding appropriate crushable or liquid drug formulations that are available whenever modified delivery is recommended. Compensatory Strategies and Precautions to be Taken for Safe Swallow: Sitting Upright (90 deg) No Straw Liquids from Cup Liquids from Spoon Small Bites and Sips Alternate Liquids/Solids Supervision While Eating and Drinking for Safe Swallow: Total Assistance (1:1) Foods to Avoid: Hard to chew solids, large pieces of food. Swallowing Recommended Treatments: Compens. Strategy Educat. Recommendation for Speech: Inpatient Speech Therapy Comment: Patient presents with a generalized weakness, including mild generalized weakness of oral motor structures. Patient chews very slowly, had some general oral bolus management and coordination issues on this evaluation. Recommend START diet of Chopped/Advanced (NDD3) Thin liquids (no straws) pills whole win puree. Patient will require 1-1 feeding initially due to generalized weakness from intubation. Liquids by controlled cup sip or tsp only, no straws. , RD notified of recommendation by secure text, RN in person, white board in patient's room altered to reflect recommendations. DRY PLASTERER will continue to follow. Frequency/Duration: Date Range for Service Req: Timeline to reassess: Hands Parter Clinican/Clinical Fellow: No Supervisory Statement: I have reviewed and agree with the student/clinical fellow's documentation: N/A Speech Language Pathologist: Wanda Bearden M.A., CCC-DRY PLASTERER
--- NOTE | 2024-10-12 17:31 | PM.EVENT ---
Event Note Date of Service: 10/12/24 Event Note: The patient is a 69-year-old female with a past medical history of depression, mood disorder, OCD, hypertension, hyperlipidemia, osteoporosis and prior psychiatry admission for overdose with benzos and olanzapine in March of 2024.? Presented to the emergency department today via EMS unresponsive.? According to EMS and patient ,? she was found unresponsive in bed,? pupils were pinpoint,? satting 80%? on room air,? requiring bag-mask ventilation en route to the hospital?and intubated emergently on arrival.?UA was positive for benzos. downgraded to medical floor 10/12 toxic encephalopathy due to intentional benzo overdose Status post intubation for airway protection; extubated this am (10/12) brain ct negative We will need care team evaluation Continue one:one sitter for safety seen by aline jesus to start NDD3 diet SIRS met with fever, tachycardia; leukocytosis appears chronic lactic acid normal was treated with empiric abx but no source of infection was identified and was thus discontinued blood cultures negative to date mood baseline meds on hold in the setting of drug overdose psych consult pending dvt ppx - lovenox further management as per ICU daily note Time Spent With Patient Time: Total time managing care of this patient today ____ minutes.
[2024-10-12] MEDS: Enoxaparin Sodium 40 MG/0.4 ML SYRINGE SUBCUT (20:10)
[2024-10-12] MEDS: ALPRAZolam 0.25 MG TABLET PO (21:17)
[2024-10-13 04:35] VITALS: BP 123/82; PULSE 117; RESP 18; TEMP 36.6; O2SAT 95
[2024-10-13 07:23] VITALS: BP 161/89; PULSE 91; RESP 16; TEMP 36.4; O2SAT 92
[2024-10-13] MEDS: amLODIPine Besylate 5 MG TABLET PO (08:18)
[2024-10-13] MEDS: Metoprolol Succinate ER 50 MG TAB.ER.24H PO (08:18)
[2024-10-13] MEDS: Multivitamin TABLET 1 TAB PO (08:18)
[2024-10-13] MEDS: ALPRAZolam 0.25 MG TABLET PO (08:18)
[2024-10-13] MEDS: Pravastatin Sodium 20 MG TABLET PO (08:19)
[2024-10-13] MEDS: hydrOXYzine HCL 25 MG TABLET PO ×2 (14:39→21:17)
--- NOTE | 2024-10-13 15:16 | MHC.CM.PN ---
per rounds pt is reafdy for dc back to psych md will speak w/care team
[2024-10-13 15:50] VITALS: BP 130/64; PULSE 84; RESP 18; TEMP 37.6; O2SAT 95
--- NOTE | 2024-10-13 16:05 | HO.PM.IMPN ---
Subjective Subjective Date of Service: 10/13/24 Interval History: seen and examined this morning follow up for intentional OD with benzos - she reports she is tired of living with depression and that's why she took 15 extra xanax she's alert and oriented and was initially feeling better however she continues to feel anxious Review of Systems Review of Systems: Yes all other systems are reviewed and are negative Constitutional Constitutional: Denies chills and Denies fever(s) Cardiovascular Cardiovascular: Denies chest pain and Denies dyspnea Respiratory Respiratory: Denies dyspnea Gastrointestinal Gastrointestinal: Denies abdominal pain Physical Exam Vital Signs: Vital Signs: Last Vital Signs Temp 99.6 F 10/13/24 15:50 Pulse 84 10/13/24 15:50 Resp 18 10/13/24 15:50 BP 130/64 10/13/24 15:50 Pulse Ox 95 10/13/24 15:50 O2 Del Method Room Air 10/13/24 15:50 O2 Flow Rate 2 10/12/24 11:40 FiO2 25 10/12/24 08:00 BMI result Body Mass Index 20.8 Const: General: cooperative, comfortable, alert and awake Nutritional Appearance: average body habitus Orientation/consciousness: patient oriented x3 Resp: Effort & Inspection: normal respiratory effort, able to speak in complete sentences, no respiratory distress and no use of accessory muscles Cardio: Rate: regular rate GI: Inspection: No distended Palpation (GI): Soft to palpation and nontender Neuro: General: patient oriented x3 and moves all extremities Extrem: General: Yes no pedal edema Objective Data Active Medications Acetaminophen (Acetaminophen Oral Liquid 650 Mg/20.3 Ml Solution) 650 mg PO Q4H PRN PRN Reason: Fever >100.4 Last Admin: 10/11/24 12:22 Dose: 650 mg Documented By: CONRAD Alprazolam (Alprazolam 0.25 Mg Tablet) 0.25 mg PO BID PRN PRN Reason: Anxiety Last Admin: 10/13/24 08:18 Dose: 0.25 mg Documented By: MILKA Amlodipine Besylate (Amlodipine Besylate 5 Mg Tablet) 5 mg PO DAILY [facility]; Protocol Last Admin: 10/13/24 08:18 Dose: 5 mg Documented By: MILKA Enoxaparin Sodium (Enoxaparin Sodium 40 Mg/0.4 Ml Syringe) 40 mg SUBCUT Q24H [facility] Last Admin: 10/12/24 20:10 Dose: 40 mg Documented By: ANNE Hydroxyzine HCl (Hydroxyzine Hcl 25 Mg Tablet) 25 mg PO TID PRN PRN Reason: Anxiety Last Admin: 10/13/24 14:39 Dose: 25 mg Documented By: MILKA Metoprolol Succinate (Metoprolol Succinate Er 50 Mg Tab.Er.24h) 50 mg PO DAILY [facility]; Protocol Last Admin: 10/13/24 08:18 Dose: 50 mg Documented By: MILKA Multivitamins/Vitamin C (Multivitamin Tablet) 1 tab PO DAILY [facility] Last Admin: 10/13/24 08:18 Dose: 1 tab Documented By: MILKA Nortriptyline HCl (Nortriptyline Hcl 25 Mg Capsule) 25 mg PO BID [facility] Last Admin: 10/13/24 15:18 Dose: Not Given Documented By: MILKA Non-Admin Reason: Patient Refused Pravastatin Sodium (Pravastatin Sodium 20 Mg Tablet) 20 mg PO DAILY [facility] Last Admin: 10/13/24 08:19 Dose: 20 mg Documented By: MILKA Sertraline HCl (Sertraline Hcl 100 Mg Tablet) 200 mg PO BEDTIME [facility] Trazodone HCl (Trazodone Hcl 50 Mg Tablet) 50 mg PO BEDTIME PRN PRN Reason: Insomnia Labs 10/12/24 05:01 10/12/24 05:01 Labs: Laboratory Results - last 24 hr 10/10/24 17:02 B-Natriuretic Peptide Microbiology Microbiology Results: Microbiology 10/10/24 17:16 Blood Culture - Preliminary Blood - Venous No growth after 48 hours. 10/10/24 17:02 Blood Culture - Preliminary Blood - Venous No growth after 48 hours. Assessment and Plan (1) Overdose: Status: Acute Plan This is a 69-year-old female with a past medical history of depression, mood disorder, OCD, hypertension, hyperlipidemia, osteoporosis and prior psychiatry admission for overdose with benzos and olanzapine in March of 2024.? Presented to the emergency department today via EMS unresponsive.? According to EMS and patient ,? she was found unresponsive in bed,? pupils were pinpoint,? satting 80%? on room air,? requiring bag-mask ventilation en route to the hospital?and intubated emergently on arrival.?UA was positive for benzos. downgraded to medical floor 10/12 toxic encephalopathy due to intentional benzo overdose Status post intubation for airway protection; extubated 10/[address] negative. weaned off oxygen. tolerating diet care team evaluation pending Continue one:one sitter for safety seen by aline jesus to start NDD3 diet SIRS met with fever, tachycardia; leukocytosis appears chronic lactic acid normal was treated with empiric abx but no source of infection was identified and was thus discontinued blood cultures negative to date mood baseline meds on hold in the setting of drug overdose - due to increasing anxiety xanax added back at 50% dose, atarax resumed resume nortriptyline and sertraline to prevent withdrawal - pt refusing nortriptyline. psych consult still pending HTN bp controlled with norvasc, toprol xl dvt ppx - lovenox requires ongoing inpatient stay for safety and evaluation to determine need for IPLOC due to intentional overdose Quality Stroke Does the patient have a stroke diagnosis?: No VTE Prior VTE?: No VTE Risk Level:: Medical - moderate - high VTE Device Contraindication: N/A - Device Ordered VTE Drug Contraindication: N/A - Med Ordered
--- NOTE | 2024-10-13 16:44 | MHC.SL.SWA ---
Speech Pathologist Impression: Oral phase dysphagia Risk of Aspiration Due to: Hx of Recent Extubation Dysphasia Diet Status: No change Liquid Consistency and Strategies for Safe Swallow: Liquid Intake Recommendation: Thin Liquid Intake Strategies: Small Sips No Straws Solid Food Consistency: Dietary Recommendations: Chopped/Advanced (NDD3) Additional Modifications to Solid Foods: 1:1 supervision during meals, encourage self-feeding when possible Oral Medication Intake: Whole with Puree Please contact the pharmacy regarding appropriate crushable or liquid drug formulations that are available whenever modified delivery is recommended. Compensatory Strategies and Precautions to be Taken for Safe Swallow: Sitting Upright (90 deg) No Straw Small Bites and Sips Alternate Liquids/Solids Rate of Ingestion Change Avoid Specific Foods Supervision While Eating and Drinking for Safe Swallow: Total Supervision (1:1) Foods to Avoid: Hard to chew solids, large pieces of food. Swallowing Recommended Treatments: Compens. Strategy Educat. Recommendation for Speech: Inpatient Speech Therapy Comment: Patient presents with a generalized weakness, including mild generalized weakness of oral motor structures. Patient chews very slowly, had some general oral bolus management and coordination issues on this evaluation. Recommend START diet of Chopped/Advanced (NDD3) Thin liquids (no straws) pills whole win puree. Patient will require 1-1 feeding initially due to generalized weakness from intubation. Liquids by controlled cup sip or tsp only, no straws. Frequency/Duration: Date Range for Service Req: Timeline to reassess: Member Of Technical Staff Clinican/Clinical Fellow: No Supervisory Statement: I have reviewed and agree with the student/clinical fellow's documentation: N/A Speech Language Pathologist: Gin Maurer M.A., CCC-RACE AND SPORTS BOOK WRITER
--- NOTE | 2024-10-13 17:35 | MHC.CARE ---
Pt assessed by the CARE Team for LOC; Pt will be an inpatient bedsearch. Medical provider, Pt and Pt's are aware. Section 12 in Pt's chart for safety.
[2024-10-13 20:00] VITALS: BP 136/87; PULSE 98; RESP 18; TEMP 36.8; O2SAT 94
[2024-10-13] MEDS: Sertraline HCL 100 MG TABLET 200 MG PO (21:15)
[2024-10-13] MEDS: traZODone HCL 50 MG TABLET PO (21:15)
--- NOTE | 2024-10-14 03:13 | PC.NURSE ---
This RN assumed care at 1900, when patient pulled out both IVs, pt stated i am going home, I do not need these anymore. Pt does not have IV medication at this time, will attempt to put knew IV in AM.
[2024-10-14 03:41] VITALS: BP 137/83; PULSE 86; RESP 18; TEMP 36.4; O2SAT 91
[2024-10-14 07:06] VITALS: BP 147/87; PULSE 75; RESP 18; TEMP 36.5; O2SAT 90
[2024-10-14] MEDS: Pravastatin Sodium 20 MG TABLET PO (09:34)
[2024-10-14 09:35] VITALS: BP 141/90; PULSE 83
[2024-10-14] MEDS: Metoprolol Succinate ER 50 MG TAB.ER.24H PO (09:35)
[2024-10-14] MEDS: amLODIPine Besylate 5 MG TABLET PO (09:35)
[2024-10-14] MEDS: Multivitamin TABLET 1 TAB PO (09:36)
[2024-10-14] MEDS: hydrOXYzine HCL 25 MG TABLET PO ×2 (13:31→19:53)
--- NOTE | 2024-10-14 14:22 | P.PNIM_ITS ---
Subjective Subjective Date of Service: 10/14/24 Interval History: seen and examined this morning follow up for intentional drug overdose awake, alert; no sob, cough, abdominal pain etc Review of Systems Review of Systems: Yes all other systems are reviewed and are negative Constitutional Constitutional: Denies chills and Denies fever(s) Cardiovascular Cardiovascular: Denies chest pain, Denies palpitations and Denies dyspnea Respiratory Respiratory: Denies cough and Denies dyspnea Gastrointestinal Gastrointestinal: Denies abdominal pain, Denies nausea and Denies vomiting Endocrine Endocrine: Denies palpitations Physical Exam 2 Vital Signs: Vital Signs: Last Vital Signs Temp 97.7 F 10/14/24 07:06 Pulse 83 10/14/24 09:35 Resp 18 10/14/24 07:06 BP 141/90 H 10/14/24 09:35 Pulse Ox 90 L 10/14/24 07:06 O2 Del Method Room Air 10/14/24 07:06 O2 Flow Rate 2 10/12/24 11:40 FiO2 25 10/12/24 08:00 BMI result Body Mass Index 20.8 Const: General: cooperative, comfortable, alert and awake Nutritional Appearance: average body habitus Orientation/consciousness: patient oriented x3 Resp: Effort & Inspection: normal respiratory effort, able to speak in complete sentences, no respiratory distress and no use of accessory muscles Cardio: Rate: regular rate GI: Inspection: No distended Palpation (GI): Soft to palpation and nontender Neuro: General: patient oriented x3 and moves all extremities Extrem: General: Yes no pedal edema Objective Data Active Medications Acetaminophen (Acetaminophen Oral Liquid 650 Mg/20.3 Ml Solution) 650 mg PO Q4H PRN PRN Reason: Fever >100.4 Last Admin: 10/11/24 12:22 Dose: 650 mg Documented By: CONRAD Alprazolam (Alprazolam 0.5 Mg Tablet) 0.5 mg PO BID PRN PRN Reason: Anxiety Amlodipine Besylate (Amlodipine Besylate 5 Mg Tablet) 5 mg PO DAILY [facility]; Protocol Last Admin: 10/14/24 09:35 Dose: 5 mg Documented By: ARMANDO Enoxaparin Sodium (Enoxaparin Sodium 40 Mg/0.4 Ml Syringe) 40 mg SUBCUT Q24H [facility] Last Admin: 10/13/24 21:16 Dose: Not Given Documented By: IZABELLA Non-Admin Reason: Patient Refused Hydroxyzine HCl (Hydroxyzine Hcl 25 Mg Tablet) 25 mg PO TID PRN PRN Reason: Anxiety Last Admin: 10/14/24 13:31 Dose: 25 mg Documented By: ARMANDO Metoprolol Succinate (Metoprolol Succinate Er 50 Mg Tab.Er.24h) 50 mg PO DAILY [facility]; Protocol Last Admin: 10/14/24 09:35 Dose: 50 mg Documented By: ARMANDO Multivitamins/Vitamin C (Multivitamin Tablet) 1 tab PO DAILY [facility] Last Admin: 10/14/24 09:36 Dose: 1 tab Documented By: ARMANDO Nortriptyline HCl (Nortriptyline Hcl 25 Mg Capsule) 25 mg PO BID [facility] Last Admin: 10/14/24 09:39 Dose: Not Given Documented By: ARMANDO Non-Admin Reason: Patient Refused Pravastatin Sodium (Pravastatin Sodium 20 Mg Tablet) 20 mg PO DAILY [facility] Last Admin: 10/14/24 09:34 Dose: 20 mg Documented By: ARMANDO Sertraline HCl (Sertraline Hcl 100 Mg Tablet) 200 mg PO BEDTIME [facility] Last Admin: 10/13/24 21:15 Dose: 200 mg Documented By: IZABELLA Trazodone HCl (Trazodone Hcl 50 Mg Tablet) 50 mg PO BEDTIME PRN PRN Reason: Insomnia Last Admin: 10/13/24 21:15 Dose: 50 mg Documented By: IZABELLA Labs 10/12/24 05:01 10/12/24 05:01 Labs: Laboratory Results - last 24 hr 10/10/24 17:02 B-Natriuretic Peptide Assessment and Plan (1) Overdose: Status: Acute Plan This is a 69-year-old female with a past medical history of depression, mood disorder, OCD, hypertension, hyperlipidemia, osteoporosis and prior psychiatry admission for overdose with benzos and olanzapine in March of 2024.? Presented to the emergency department today via EMS unresponsive.? According to EMS and patient ,? she was found unresponsive in bed,? pupils were pinpoint,? satting 80%? on room air,? requiring bag-mask ventilation en route to the hospital?and intubated emergently on arrival.?UA was positive for benzos. downgraded to medical floor 10/12 toxic encephalopathy due to intentional benzo overdose Status post intubation for airway protection; extubated 10/12. now awake/alert brain ct negative. weaned off oxygen. tolerating diet seen by care team- meets criteria for IPLOC. section 12 signed, pt can not leave AMA. bed search in progress Continue one:one sitter for safety dysphagia weakness due to intubation seen by speech, rec NDD3 diet SIRS met with fever, tachycardia; leukocytosis appears chronic lactic acid normal was treated with empiric abx but no source of infection was identified and was thus discontinued blood cultures negative to date mood baseline meds on hold in the setting of drug overdose - due to increasing anxiety xanax added back at 50% dose, atarax resumed resume nortriptyline and sertraline to prevent withdrawal - pt refusing nortriptyline. psych consult still pending HTN bp controlled with norvasc, toprol xl dvt ppx - lovenox requires ongoing inpatient stay for safety and evaluation to determine need for IPLOC due to intentional overdose Quality Stroke Does the patient have a stroke diagnosis?: No VTE Prior VTE?: No VTE Risk Level:: Medical - moderate - high VTE Device Contraindication: N/A - Device Ordered VTE Drug Contraindication: N/A - Med Ordered
[2024-10-14 15:03] VITALS: BP 119/67; PULSE 69; RESP 18; TEMP 36.1; O2SAT 94
[2024-10-14] MEDS: ALPRAZolam 0.5 MG TABLET PO (17:54)
[2024-10-14 19:08] VITALS: BP 114/64; PULSE 71; RESP 18; TEMP 36.4; O2SAT 93
[2024-10-14] MEDS: Sertraline HCL 100 MG TABLET 200 MG PO (19:52)
[2024-10-14] MEDS: traZODone HCL 50 MG TABLET PO (19:53)
[2024-10-15 03:39] VITALS: BP 163/86; PULSE 64; RESP 16; TEMP 36.1; O2SAT 93
[2024-10-15 08:02] VITALS: BP 137/84; PULSE 82; RESP 12; TEMP 36.1; O2SAT 93
[2024-10-15] MEDS: Pravastatin Sodium 20 MG TABLET PO (08:36)
[2024-10-15] MEDS: amLODIPine Besylate 5 MG TABLET PO (08:36)
[2024-10-15] MEDS: Multivitamin TABLET 1 TAB PO (08:36)
[2024-10-15] MEDS: Metoprolol Succinate ER 50 MG TAB.ER.24H PO (08:37)
--- NOTE | 2024-10-15 14:47 | HO.PM.IMPN ---
Subjective Subjective Date of Service: 10/15/24 Interval History: seen and examined this morning follow up for intentional benzo overdose No overnight events No specific complaints this morning Review of Systems Review of Systems: Yes all other systems are reviewed and are negative Constitutional Constitutional: Denies chills and Denies fever(s) Cardiovascular Cardiovascular: Denies chest pain, Denies palpitations and Denies dyspnea Respiratory Respiratory: Denies cough and Denies dyspnea Endocrine Endocrine: Denies palpitations Physical Exam Vital Signs: Vital Signs: Last Vital Signs Temp 96.9 F 10/15/24 08:02 Pulse 82 10/15/24 08:02 Resp 12 10/15/24 08:02 BP 137/84 10/15/24 08:02 Pulse Ox 93 10/15/24 08:02 O2 Del Method Room Air 10/15/24 08:02 O2 Flow Rate 2 10/12/24 11:40 FiO2 25 10/12/24 08:00 BMI result Body Mass Index 20.8 Const: General: cooperative, comfortable, alert and awake Nutritional Appearance: average body habitus Orientation/consciousness: patient oriented x3 Resp: Effort & Inspection: normal respiratory effort, able to speak in complete sentences, no respiratory distress and no use of accessory muscles Cardio: Rate: regular rate GI: Inspection: No distended Palpation (GI): Soft to palpation and nontender Neuro: General: patient oriented x3 and moves all extremities Extrem: General: Yes no pedal edema Objective Data Active Medications Acetaminophen (Acetaminophen Oral Liquid 650 Mg/20.3 Ml Solution) 650 mg PO Q4H PRN PRN Reason: Fever >100.4 Last Admin: 10/11/24 12:22 Dose: 650 mg Documented By: CONRAD Alprazolam (Alprazolam 0.5 Mg Tablet) 0.5 mg PO BID PRN PRN Reason: Anxiety Last Admin: 10/14/24 17:54 Dose: 0.5 mg Documented By: ARMANDO Amlodipine Besylate (Amlodipine Besylate 5 Mg Tablet) 5 mg PO DAILY [facility]; Protocol Last Admin: 10/15/24 08:36 Dose: 5 mg Documented By: ARMANDO Enoxaparin Sodium (Enoxaparin Sodium 40 Mg/0.4 Ml Syringe) 40 mg SUBCUT Q24H [facility] Last Admin: 10/14/24 19:52 Dose: Not Given Documented By: IZABELLA Non-Admin Reason: Patient Refused Hydroxyzine HCl (Hydroxyzine Hcl 25 Mg Tablet) 25 mg PO TID PRN PRN Reason: Anxiety Last Admin: 10/14/24 19:53 Dose: 25 mg Documented By: IZABELLA Metoprolol Succinate (Metoprolol Succinate Er 50 Mg Tab.Er.24h) 50 mg PO DAILY [facility]; Protocol Last Admin: 10/15/24 08:37 Dose: 50 mg Documented By: ARMANDO Multivitamins/Vitamin C (Multivitamin Tablet) 1 tab PO DAILY [facility] Last Admin: 10/15/24 08:36 Dose: 1 tab Documented By: ARMANDO Nortriptyline HCl (Nortriptyline Hcl 25 Mg Capsule) 25 mg PO BID [facility] Last Admin: 10/15/24 08:37 Dose: Not Given Documented By: ARMANDO Non-Admin Reason: Patient Refused Pravastatin Sodium (Pravastatin Sodium 20 Mg Tablet) 20 mg PO DAILY [facility] Last Admin: 10/15/24 08:36 Dose: 20 mg Documented By: ARMANDO Sertraline HCl (Sertraline Hcl 100 Mg Tablet) 200 mg PO BEDTIME HARESH Last Admin: 10/14/24 19:52 Dose: 200 mg Documented By: IZABELLA Trazodone HCl (Trazodone Hcl 50 Mg Tablet) 50 mg PO BEDTIME PRN PRN Reason: Insomnia Last Admin: 10/14/24 19:53 Dose: 50 mg Documented By: IZABELLA Labs 10/12/24 05:01 10/12/24 05:01 Assessment and Plan (1) Overdose: Status: Acute Plan This is a 69-year-old female with a past medical history of depression, mood disorder, OCD, hypertension, hyperlipidemia, osteoporosis and prior psychiatry admission for overdose with benzos and olanzapine in March of 2024.? Presented to the emergency department today via EMS unresponsive.? According to EMS and patient ,? she was found unresponsive in bed,? pupils were pinpoint,? satting 80%? on room air,? requiring bag-mask ventilation en route to the hospital?and intubated emergently on arrival.?UA was positive for benzos. downgraded to medical floor 10/12 toxic encephalopathy due to intentional benzo overdose Status post intubation for airway protection; extubated 10/12. now awake/alert brain ct negative. weaned off oxygen. tolerating diet seen by care team- meets criteria for IPLOC. section 12 signed, pt can not leave AMA. bed search in progress Continue one:one sitter for safety dysphagia weakness due to intubation seen by speech, rec NDD3 diet; tolerating without difficulty SIRS met with fever, tachycardia; leukocytosis appears chronic lactic acid normal was treated with empiric abx but no source of infection was identified and was thus discontinued blood cultures negative to date mood baseline meds initally on hold in the setting of drug overdose - due to increasing anxiety most meds resumed resume nortriptyline and sertraline to prevent withdrawal - pt refusing nortriptyline psych consult still pending HTN bp controlled with norvasc, toprol xl dvt ppx - lovenox requires ongoing inpatient stay for safety and inpatient psych bed search Quality Stroke Does the patient have a stroke diagnosis?: No VTE Prior VTE?: No VTE Risk Level:: Medical - moderate - high VTE Device Contraindication: N/A - Device Ordered VTE Drug Contraindication: N/A - Med Ordered
[2024-10-15 16:00] VITALS: BP 136/80; PULSE 80; RESP 18; TEMP 37; O2SAT 95
[2024-10-15] MEDS: hydrOXYzine HCL 25 MG TABLET PO (16:07)
--- NOTE | 2024-10-15 16:22 | PM.DS ---
DS: Providers Provider Date of Service: 10/16/24 <Matias Wheeler MD - Last Filed: 10/16/24 11:44> Date of admission: 10/10/24 19:32 <JENNIE Ojeda - Last Filed: 10/19/24 12:25> Date of discharge: 10/16/24 <Matias Wheeler MD - Last Filed: 10/16/24 11:44> Primary care physician: JENNIE Rosales <JENNIE Ojeda - Last Filed: 10/19/24 12:25> Consults: 10/10/24 21:17 Consult to Psychiatry Routine Consulting Provider: [facility] [place] Psych Covering Reason for consultation: Overdose Has provider been notified: No 10/10/24 21:20 Consult to Care Team Routine Comment: Reason for consultation: ? intentional overdose Has provider been notified: Yes 10/12/24 08:43 Consult for Sitter Routine Reason for consultation: Positive SI 10/12/24 08:46 Consult for Sitter Routine Reason for consultation: suicide attempt 10/12/24 10:53 Consult to Care Team Routine Comment: Reason for consultation: Intentional benzodiazepine overdose 10/13/24 12:27 Consult to Care Team Routine Comment: Reason for consultation: medical cleared; LOC <JENNIE Ojeda - Last Filed: 10/19/24 12:25> DS: Diagnosis Discharge Diagnosis (1) Overdose: Status: Acute <JENNIE Ojeda - Last Filed: 10/19/24 12:25> DS: Summary Hospital Course Hospital Course: From H&P on the day of admission The patient is a 69-year-old female with a past medical history of depression, mood disorder, OCD, hypertension, hyperlipidemia, osteoporosis and prior psychiatry admission for overdose with benzos and olanzapine in March of 2024.? Presented to the emergency department today via EMS unresponsive.? According to EMS and patient ,? she was found unresponsive in bed,? pupils were pinpoint,? satting 80%? on room air,? requiring bag-mask ventilation en route to the hospital? and intubated emergently on arrival.? Patient to be hypothermic Tlow 94.7 Patient?s stated that the patient normal baseline until yesterday and lately has been depressed raising concern of overdosing on her psych medication. He states she takes about 5? different? psych medications,? but unsure of the names,? he states the bottles are not empty,? but will bring the medication bottles tomorrow to the hospital.? ?UA was positive for benzos only. toxic encephalopathy due to intentional benzo overdose Patient was initially admitted to the ICU. Status post intubation for airway protection; extubated 10/12. She was seen by care team and meets criteria for IPLOC. section 12 signed had one:one sitter for safety. Bed search was initated and she will be transferred to inpatient psych floor in stable condition. dysphagia weakness due to intubation seen by speech, rec NDD3 diet; tolerating without difficulty SIRS Initially met SIRS criteria with fever, tachycardia, leukocytosis. lactic acid was normal. She was intially treated with empiric abx but no source of infection was identified and was thus discontinued. blood cultures have remained negative to date mood baseline meds initially on hold in the setting of drug overdose. due to increasing anxiety most meds resumed although pt refusing nortriptyline as she states she no longer takes it at home. requesting olazapine to be resumed. <JENNIE Ojeda - Last Filed: 10/19/24 12:25> Time Attestation Discharge Coordination Time (in mins): 36 <JENNIE Ojeda Last Filed: 10/19/24 12:25> Quality: Safe Use of Opioids Does Pt have an Active Cancer Diagnosis on the Problem List?: No <JENNIE Ojeda Last Filed: 10/19/24 12:25> Quality: Stroke Does the patient have a stroke diagnosis?: No <JENNIE Ojeda Last Filed: 10/19/24 12:25> Physical Exam Vital Signs: Vital Signs: Last Vital Signs Temp 96.9 F 10/15/24 08:02 Pulse 82 10/15/24 08:02 Resp 12 10/15/24 08:02 BP 137/84 10/15/24 08:02 Pulse Ox 93 10/15/24 08:02 O2 Del Method Room Air 10/15/24 08:02 O2 Flow Rate 2 10/12/24 11:40 FiO2 25 10/12/24 08:00 BMI result Body Mass Index 20.8 <JENNIE Ojeda - Last Filed: 10/19/24 12:25> Vital Signs: Selected Entries 10/16/24 08:00 Temperature 98.1 F Pulse Rate 69 Respiratory Rate 17 Blood Pressure 102/62 Pulse Oximetry 93 Oxygen Delivery Me thod Room Air <Matias Wheeler MD - Last Filed: 10/16/24 11:44> DS: Data Data Completed and Pending Completed studies during hospitalization [Text1]: Procedures Introduction of Anesthetic Agent into Peripheral Nerves and Plexi, Percutaneous Approach (01/19/24) Replacement of Left Knee Joint with Synthetic Substitute, Cemented, Open Approach (01/19/24) Replacement of Right Knee Joint with Synthetic Substitute, Uncemented, Open Approach (11/05/20) <JENNIE Ojeda - Last Filed: 10/19/24 12:25> Labs on day of discharge: Preliminary micro results at discharge 10/10/24 17:16 Blood Culture - Preliminary Blood - Venous No growth after 48 hours. 10/10/24 17:02 Blood Culture - Preliminary Blood - Venous No growth after 48 hours. <JENNIE Ojeda - Last Filed: 10/19/24 12:25> Discharge Plan Discharge Anticipated Discharge Date/Time: 10/16/24 11:40 <JENNIE Ojeda - Last Filed: 10/19/24 12:25> Patient Disposition: Xfer Psychiatric Hosp <JENNIE Ojeda - Last Filed: 10/19/24 12:25> Discharge Diagnosis: Intention benzodiazepine overdose <JENNIE Ojeda - Last Filed: 10/19/24 12:25> Intention benzodiazepine overdose <Matias Wheeler MD - Last Filed: 10/16/24 11:44> Referrals: Lizzette Little PA [Primary Care Provider] - 1 Week <JENNIE Ojeda - Last Filed: 10/19/24 12:25> Discharge Medications: Continued multivitamin Tablet 1 tab PO DAILY Discontinued nortriptyline 25 mg capsule 25 mg PO BID No Action metoprolol succinate 50 mg tablet extended release 24 hr 50 mg PO DAILY sertraline 100 mg tablet 200 mg PO BEDTIME amlodipine 5 mg tablet 5 mg PO DAILY alprazolam 0.5 mg tablet 0.5 mg PO BID PRN (Reason: Anxiety) trazodone 100 mg tablet 100 mg PO BEDTIME bupropion HCl 75 mg tablet 75 mg PO DAILY pravastatin 20 mg tablet 20 mg PO DAILY olanzapine 20 mg tablet 20 mg PO BEDTIME hydroxyzine HCl 25 mg tablet 25 mg PO TID PRN (Reason: Anxiety) zolpidem 10 mg tablet 10 mg PO BEDTIME PRN (Reason: Insomnia, If Olanzapine not working after 1 hour) <JENNIE Ojeda - Last Filed: 10/19/24 12:25> Discharge Orders: Discharge Order (Routine); Ordered 10/16/24 Ordered By: Matias Wheeler <JENNIE Ojeda - Last Filed: 10/19/24 12:25> Activity on Discharge: Walk with crutches <JENNIE Ojeda - Last Filed: 10/19/24 12:25> Walk with crutches <Matias Wheeler MD - Last Filed: 10/16/24 11:44> Stand Alone Forms: Patient Portal Discharge page <JENNIE Ojeda - Last Filed: 10/19/24 12:25> Print Language: Dominican <JENNIE Ojeda - Last Filed: 10/19/24 12:25> Care Plan Goals: see below <JENNIE Ojeda - Last Filed: 10/19/24 12:25> Health Concerns: intentional benzo overdose SIRS. no source of infection found. no sepsis hypothermia. resolved <JENNIE Ojeda - Last Filed: 10/19/24 12:25> Assessment: see discharge summary <JENNIE Ojeda - Last Filed: 10/19/24 12:25> Discharge Date/Time: 10/16/24 14:21 <JENNIE Ojeda - Last Filed: 10/19/24 12:25>
[2024-10-15 19:02] VITALS: BP 116/68; PULSE 83; RESP 18; TEMP 36.4; O2SAT 92
[2024-10-15] MEDS: Sertraline HCL 100 MG TABLET 200 MG PO (20:35)
[2024-10-15] MEDS: OLANZapine 10 MG TABLET 20 MG PO (20:35)
[2024-10-15] MEDS: traZODone HCL 50 MG TABLET PO (20:42)
[2024-10-16 03:04] VITALS: BP 105/64; PULSE 67; RESP 16; TEMP 36.6; O2SAT 94
[2024-10-16] MEDS: Nortriptyline HCl 25 MG CAPSULE PO (07:40)
[2024-10-16] MEDS: Pravastatin Sodium 20 MG TABLET PO (07:40)
[2024-10-16] MEDS: Metoprolol Succinate ER 50 MG TAB.ER.24H PO (07:40)
[2024-10-16] MEDS: amLODIPine Besylate 5 MG TABLET PO (07:40)
[2024-10-16] MEDS: Multivitamin TABLET 1 TAB PO (07:41)
[2024-10-16 08:00] VITALS: BP 102/62; PULSE 69; RESP 17; TEMP 36.7; O2SAT 93
--- NOTE | 2024-10-16 10:51 | MHC.SL.SWA ---
Speech Pathologist Impression:Adequate oropharyngeal swallow coordination Risk of Aspiration Due to: Hx of Recent Extubation Dysphasia Diet Status: Liquid Consistency and Strategies for Safe Swallow: Liquid Intake Recommendation: Thin Liquid Intake Strategies: Small Sips Solid Food Consistency: Dietary Recommendations: Regular Additional Modifications to Solid Foods: Oral Medication Intake: Whole with Liquid Please contact the pharmacy regarding appropriate crushable or liquid drug formulations that are available whenever modified delivery is recommended. Compensatory Strategies and Precautions to be Taken for Safe Swallow: Sitting Upright (90 deg) Small Bites and Sips Alternate Liquids/Solids Rate of Ingestion Change Supervision While Eating and Drinking for Safe Swallow: Total Supervision (1:1) Foods to Avoid: Swallowing Recommended Treatments: Compens. Strategy Educat. Recommendation for Speech: Inpatient Speech Therapy Comment: Pt appropriate to resume regular diet consistency with thin liquids. RETAIL TEAM LEADER to followup x1 Frequency/Duration: Date Range for Service Req: Timeline to reassess: Early Childhood Teacher Assistant Clinican/Clinical Fellow: No Supervisory Statement: I have reviewed and agree with the student/clinical fellow's documentation: N/A Speech Language Pathologist: Bri Chau M.S., CCC-RETAIL TEAM LEADER
--- NOTE | 2024-10-16 12:22 | MHC.CM.PN ---
DP: PT WILL DC TO I/P PSYCH
== END 2024-10-16 14:21 | DRG 917 ==
LOC: HO.ED 19:18 → HO.EDOVER 20:18 → HO.ICU 20:24 → HO.S3 10-12 11:09
PROVIDERS: Internal Medicine Pulmonary Disease; Admitting Provider Registered Nurse Community Health; Emergency Provider Emergency Medicine; PCP Student in an Organized Health Care Education/Training Program; Visit Provider Internal Medicine
DX: T42.4X2A Poisoning by benzodiazepines, intentional self-harm, initial encounter (principal); G92.8 Other toxic encephalopathy; J96.01 Acute respiratory failure with hypoxia; F33.2 Major depressive disorder, recurrent severe without psychotic features; R65.10 Systemic inflammatory response syndrome (SIRS) of non-infectious origin without acute organ dysfunction; I10 Essential (primary) hypertension; R13.10 Dysphagia, unspecified; E78.5 Hyperlipidemia, unspecified; F41.1 Generalized anxiety disorder; R68.0 Hypothermia, not associated with low environmental temperature; Z91.51 Personal history of suicidal behavior; Z20.822 Contact with and (suspected) exposure to COVID-19; Z79.899 Other long term (current) drug therapy
CPT/HCPCS: 0241U; 36415; 70450; 71045; 80048; 80053; 80076; 80143; 80179; 80307; 81003; 82040; 82803; 82947; 83605; 83690; 83735; 83880; 84100; 84484; 85025; 85610; 87040; 92526; 92610; 93005; 94002; 94003; 94799; 99285; C1758; J0696; J1171; J1650; J2310; S9485

== ENCOUNTER → 2024-10-10 16:45 | Outpatient (BNV) | payer MEDICARE, OTHER, SELFPAY | PROVIDERS: Admitting Provider Registered Nurse Community Health; Emergency Provider Emergency Medicine; PCP Student in an Organized Health Care Education/Training Program; Visit Provider Internal Medicine Cardiovascular Disease | DX: R00.0 Tachycardia, unspecified (principal) | CPT/HCPCS: 93010 ==

== ENCOUNTER → 2024-10-10 19:32 | Outpatient (BNV) | payer MEDICARE, OTHER, SELFPAY | PROVIDERS: Admitting Provider Registered Nurse Community Health; Emergency Provider Emergency Medicine; PCP Student in an Organized Health Care Education/Training Program; Visit Provider Internal Medicine Pulmonary Disease | DX: T50.902A Poisoning by unspecified drugs, medicaments and biological substances, intentional self-harm, initial encounter (principal); F33.2 Major depressive disorder, recurrent severe without psychotic features | CPT/HCPCS: 99291 ==

== ENCOUNTER → 2024-10-10 19:32 | Outpatient (BNV) | payer MEDICARE, OTHER, SELFPAY | PROVIDERS: Admitting Provider Registered Nurse Community Health; Emergency Provider Emergency Medicine; Visit Provider Internal Medicine Critical Care Medicine | DX: T50.901A Poisoning by unspecified drugs, medicaments and biological substances, accidental (unintentional), initial encounter (principal); T68.XXXA Hypothermia, initial encounter; G92.9 Unspecified toxic encephalopathy; R41.89 Other symptoms and signs involving cognitive functions and awareness | CPT/HCPCS: 99291 ==

== ENCOUNTER → 2024-10-10 19:32 | Outpatient (BNV) | payer MEDICARE, OTHER, SELFPAY | PROVIDERS: Admitting Provider Registered Nurse Community Health; Emergency Provider Emergency Medicine; PCP Student in an Organized Health Care Education/Training Program; Visit Provider Physician Assistant Medical | DX: T50.901A Poisoning by unspecified drugs, medicaments and biological substances, accidental (unintentional), initial encounter (principal); G92.9 Unspecified toxic encephalopathy; R41.89 Other symptoms and signs involving cognitive functions and awareness | CPT/HCPCS: 99231; 99232; 99499 ==

== ENCOUNTER 2024-10-16 14:21 | Inpatient (IN) | payer MEDICARE, OTHER, SELFPAY ==
[2024-10-16 14:51] VITALS: BP 113/63; PULSE 89; RESP 17; TEMP 36.9; O2SAT 95; BMI 23.2
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
[2024-10-16 16:59] LABS: Alanine Aminotransferase 31 U/L (0-31); Alkaline Phosphatase 69 U/L (39-117); Anion Gap 11 (12-20); Aspartate Amino Transferase 19 U/L (5-31); Bilirubin Total 0.3 mg/dL (0.0-1.0); Blood Urea Nitrogen 26 mg/dL (9-16); Calcium 8.6 mg/dL (8.4-10.2); Carbon Dioxide 26 mmol/L (22-29); Chloride 107 mmol/L (96-108); Creatinine Clr Calc Pharmacy 64.3; Estimated Glomerular Filt Rate > 60; Glucose Random 90 mg/dL (60-115); Potassium 3.6 mmol/L (3.3-5.1); Sodium 140 mmol/L (135-145); Total Protein 7.1 g/dL (6.5-8.0)
--- NOTE | 2024-10-16 18:12 | PC.ADMIT ---
Zulma arrived on the unit at 1430 on a CV from S3 via wheelchair by this scientific technical writer and a electronic security specialist. Precipitants of this admission include a suicide attempt where patient was found by the unresponsive in bed at their home d/t intentional overdose on 10/10. The provider? disclosed that she took 15 tabs of Xanax because she ? Just wanted it to end.?? She is AOX4, calm, cooperative with admission, denied depression or anxiety. Affect is anxious, stating ? I am embarrassed, ashamed and hopeful that this will not happen again.? She reports ?a little anxiety blows up real fast.?? She denies SI/HI, reports poor appetite and insomnia. Skin checks done with RN and nothing significant found except for old bruises on chest and bilateral forearms. Patient placed on 5 mins checks.
[2024-10-16] MEDS: OLANZapine 10 MG TABLET 20 MG PO (19:29)
[2024-10-16] MEDS: Zolpidem Tartrate 5 MG TABLET 10 MG PO (19:31)
[2024-10-16 20:00] VITALS: BP 92/54; PULSE 83; RESP 15; TEMP 36.6; O2SAT 93
[2024-10-17 08:00] VITALS: BP 113/61; PULSE 88; RESP 16; TEMP 36; O2SAT 96
--- NOTE | 2024-10-17 08:02 | PHA.MEDREC ---
Addendum entered by Anupam Sutherland 10/17/24 08:26: reviewed Original Note: Pharmacy Consult ? Medication Reconciliation Pharmacy reviewed med rec done by nursing. Utilized Dc packet from 10/[address] had discontinued Nortriptyline 25mg tab, I took that off the med rec. Also Hydroxyzine 25mg tabs and Zolpidem 5mg tabs were on the Dc packet from yesterday as needed; Hydroxyzine 25mg tabs; 1 tab 3 times a day as needed for anxiety, that was last filled 08/23 for 30 days and Zolpidem 5mg tabs 1 at bedtime as needed for insomnia if Olanzapine not working after an hour, that was last filled 08/21 for 30 days. I added those back on the med rec.
[2024-10-17] MEDS: amLODIPine Besylate 5 MG TABLET PO (08:20)
[2024-10-17] MEDS: buPROPion HCl XL 150 MG TAB.ER.24H PO (08:20)
[2024-10-17] MEDS: Metoprolol Succinate ER 50 MG TAB.ER.24H PO (08:20)
[2024-10-17] MEDS: Multivitamin TABLET 1 TAB PO (08:20)
[2024-10-17 09:13] LABS: Estimated Average Glucose 111 mg/dL; Hemoglobin A1C 124.8348 umol/L; Hemoglobin A1c % 5.5 % (<6.0); Total Hemoglobin (HGBA1C) 3453.9749 umol/L
[2024-10-17 09:39] LABS: Cholesterol 195 mg/dL (<200); HDL Cholesterol 30 mg/dL (>40); LDL Cholesterol Calculated 132 mg/dL (<100); Magnesium 2.1 mg/dL (1.6-2.6); Triglycerides 166 mg/dL (<150)
[2024-10-17 09:54] LABS: Thyroid Stimulating Hormone 2.22 uIU/mL (0.32-4.0)
[2024-10-17 10:07] LABS: Folate 14.4 ng/mL (> or = 4.0); Vitamin B12 505 pg/mL (200-900)
--- NOTE | 2024-10-17 11:01 | HO.PSYCHPN ---
Subjective Subjective Date of Service: 10/17/24 Reason For Visit: post SA Subjective Notes: Conditional Voluntary Interim History: Pt slept through the night. She reports feeling rested. She continues to denied suicidal ideation. She reports depression is at a 3-4. She reports no increase anxiety at this point. We discussed again concern of partial response, rapidly decompensating. Pt open to consider ECT. She also agrees and request that manages medications given 2 intentional ODs this year. She has been visible on the unit, social with select peers. No behavioral concerns. Medication Compliance: Yes Side effects from medications: No Attending Groups: Yes Mental Status Exam Mental Status Exam Narrative: Appearance: wearing hospital gown, decreased blinking, mask-like expression, in NAD. Behavior: cooperative Psychomotor: no agitation or retardation noted. no tremors. TP: linear TC: ashamed of OD Mood: better Affect: constricted in range, but congruent SI: denies HI: denies VH/AH: none Delusions: none Insight/judgment: fair x 2. memory/cog: alert, oriented x 3. pending MOCA and ACL. Diagnostics Vital Signs (24Hr): Vital Signs - 24 hr 10/16/24 14:51 10/16/24 20:00 10/17/24 08:00 Temperature 98.4 F 97.9 F 96.8 F Pulse Rate 89 83 88 Respiratory Rate 17 15 16 Blood Pressure 113/63 92/54 L 113/61 Pulse Oximetry 95 93 96 Oxygen Delivery Method Room Air Room Air Room Air BMI result Body Mass Index 23.2 Labs 10/16/24 16:35 Labs: Laboratory Results - last 48 hr 10/16/24 10/17/24 16:35 07:56 Sodium 140 Potassium 3.6 Chloride 107 Carbon Dioxide 26 Anion Gap 11 L BUN 26 H Creatinine 0.78 Estim Creat Clear Calc 64.3 Estimated GFR > 60 Random Glucose 90 Estimat Average Glucose 111 Hemoglobin A1c % 5.5 Calcium 8.6 Magnesium 2.1 Total Bilirubin 0.3 AST 19 ALT 31 Alkaline Phosphatase 69 Total Protein 7.1 Albumin 4.0 Triglycerides 166 H Cholesterol 195 LDL Cholesterol, Calc 132 H HDL Cholesterol 30 L Vitamin B12 505 Folate 14.4 TSH 2.22 Medications Medications Current Medications Acetaminophen (Acetaminophen 325 Mg Tablet) 650 mg PO Q6H PRN PRN Reason: Headache/Pain Mild Scale (1-3) Al Hydroxide/Mg Hydroxide (Magnesium Hydrox/Alum Hydrox 30 Ml Oral.Susp) 30 ml PO Q6H PRN PRN Reason: Heartburn/Nausea Alprazolam (Alprazolam 0.5 Mg Tablet) 0.5 mg PO BID PRN PRN Reason: anxiety/restlessness Amlodipine Besylate (Amlodipine Besylate 5 Mg Tablet) 5 mg PO DAILY HARESH; Protocol Last Admin: 10/17/24 08:20 Dose: 5 mg Bupropion HCl (Bupropion Hcl Xl 150 Mg Tab.Er.24h) 150 mg PO DAILY HARESH Last Admin: 10/17/24 08:20 Dose: 150 mg Hydroxyzine HCl (Hydroxyzine Hcl 25 Mg Tablet) 25 mg PO Q6H PRN PRN Reason: Anxiety Magnesium Hydroxide (Milk Of Magnesia 30 Ml Oral.Susp) 30 ml PO DAILY PRN PRN Reason: Constipation Metoprolol Succinate (Metoprolol Succinate Er 50 Mg Tab.Er.24h) 50 mg PO DAILY HARESH; Protocol Last Admin: 10/17/24 08:20 Dose: 50 mg Multivitamins/Vitamin C (Multivitamin Tablet) 1 tab PO DAILY HARESH Last Admin: 10/17/24 08:20 Dose: 1 tab Olanzapine (Olanzapine 10 Mg Tablet) 20 mg PO BEDTIME HARESH Last Admin: 10/16/24 19:29 Dose: 20 mg Sertraline HCl (Sertraline Hcl 100 Mg Tablet) 200 mg PO BEDTIME HARESH Zolpidem Tartrate (Zolpidem Tartrate 5 Mg Tablet) 10 mg PO BEDTIME PRN PRN Reason: Insomnia Last Admin: 10/16/24 19:31 Dose: 10 mg Allergies Allergies Allergy/AdvReac Type Severity Reaction Status Date / Time No Known Allergies Allergy Verified 10/10/24 16:55 [No Known Allergies*] Assessment & Plan Assessment & Plan (1) MDD (major depressive disorder), recurrent severe, without psychosis: Status: Acute Code(s): F33.2 - Major depressive disorder, recurrent severe without psychotic features (2) OCD (obsessive compulsive disorder): Status: Acute Code(s): F42.9 - Obsessive-compulsive disorder, unspecified Plan Mrs. Sparks is a 69 year-old woman with hx of OCD, MDD who was brought via EMS on 10/10 after found unresponsive by . Per EMS, her oxygen saturation on room air was 80%. In the ED, she was intubated and admitted to ICU for airway protection. She was extubated on 10/12. Her utox was positive for benzodiapines. Pt reports it was an intentional OD on xanax- took about 15mg of xanax. She denies it was a suicide attempt but rather attempt to go to sleep and decrease anxiety. Of note, pt had similar intentional OD on ativan back in 03/2024. She has had at least 7 trials of antidepressant in the past 2 years, including TMS. She has had now 2 intentional OD whether due to severe anxiety or with intent to end her life is unclear. We discussed that she has had partial response to medications and perhaps considering ECT. Left VM with call back number to OP psychiatrist, Dr. Isaac. Pt is in agreement to have either or [facility] manage medication in lock box. PLAN 1. Admit S1, cv, 15 minutes checks 2. dc wellbutrin as it may increase anxiety- which she has struggled with for a long time and it has been difficult to manage. 3. continue sertraline 200mg po qhs. continue xanax 0.5mg po BID prn 4. pending MOCA/ACL 5. May consider ECT- given tx resistant agitated depression 6. aftercare planning. Reason for continued inpatient stay Substantial Risk for: inability to function Time Spent With Patient Time: Total time managing care of this patient today ____ minutes.
[2024-10-17] MEDS: hydrOXYzine HCL 25 MG TABLET PO ×2 (12:13→20:17)
[2024-10-17] MEDS: ALPRAZolam 0.5 MG TABLET PO (15:20)
[2024-10-17 20:00] VITALS: BP 111/62; PULSE 81; RESP 16; TEMP 36.3; O2SAT 93
[2024-10-17] MEDS: Sertraline HCL 100 MG TABLET 200 MG PO (20:16)
[2024-10-17] MEDS: OLANZapine 10 MG TABLET 20 MG PO (20:16)
[2024-10-17] MEDS: Zolpidem Tartrate 5 MG TABLET 10 MG PO (20:17)
[2024-10-18 08:20] VITALS: BP 123/62; PULSE 73; RESP 17; TEMP 36.6; O2SAT 97
[2024-10-18] MEDS: Multivitamin TABLET 1 TAB PO (08:31)
[2024-10-18] MEDS: Metoprolol Succinate ER 50 MG TAB.ER.24H PO (08:31)
[2024-10-18] MEDS: amLODIPine Besylate 5 MG TABLET PO (08:31)
--- NOTE | 2024-10-18 16:48 | P.PNPSI_ITS ---
Subjective Subjective Date of Service: 10/18/24 Reason For Visit: post SA Interim History: Met with patient; discussed with team Patient reports she is feeling much better. She said her new year's resolution is to not need another psychiatric hospitalization. Patient said that she had an Epiphany, realizing that so much of her anxiety is just due to low self- esteem which translates into depression. Patient said that on the unit now, she no longer has any anxiety and has had none for the past week. She reports that she feels ready to go home. Mental Status Exam Mental Status Exam Narrative: Pt is alert and oriented; behavior is cooperative, friendly and calm; patient is not in distress; dressed in casual attire with adequate hygiene; mood is described as good and affect congruent; eye contact appropriate; Speech is normal rate, volume and prosody and not pressured; no psychomotor agitation/retardation present; thought process is organized and goal directed; Thought content is on tx; otherwise pertinent to relevant topics and without any delusional content, paranoid ideations or grandiosity; denies any SI/HI. There is no evidence of perceptual disturbance. Patients insight and judgment appear intact. Diagnostics Vital Signs (24Hr): Vital Signs - 24 hr 10/17/24 20:00 10/18/24 08:20 Temperature 97.3 F 97.9 F Pulse Rate 81 73 Respiratory Rate 16 17 Blood Pressure 111/62 123/62 Pulse Oximetry 93 97 Oxygen Delivery Method Room Air Room Air BMI result Body Mass Index 23.2 Labs 10/16/24 16:35 Labs: Laboratory Results - last 48 hr 10/16/24 10/17/24 16:35 07:56 Sodium 140 Potassium 3.6 Chloride 107 Carbon Dioxide 26 Anion Gap 11 L BUN 26 H Creatinine 0.78 Estim Creat Clear Calc 64.3 Estimated GFR > 60 Random Glucose 90 Estimat Average Glucose 111 Hemoglobin A1c % 5.5 Calcium 8.6 Magnesium 2.1 Total Bilirubin 0.3 AST 19 ALT 31 Alkaline Phosphatase 69 Total Protein 7.1 Albumin 4.0 Triglycerides 166 H Cholesterol 195 LDL Cholesterol, Calc 132 H HDL Cholesterol 30 L Vitamin B12 505 Folate 14.4 TSH 2.22 Medications Medications Current Medications Acetaminophen (Acetaminophen 325 Mg Tablet) 650 mg PO Q6H PRN PRN Reason: Headache/Pain Mild Scale (1-3) Al Hydroxide/Mg Hydroxide (Magnesium Hydrox/Alum Hydrox 30 Ml Oral.Susp) 30 ml PO Q6H PRN PRN Reason: Heartburn/Nausea Alprazolam (Alprazolam 0.5 Mg Tablet) 0.5 mg PO BID PRN PRN Reason: anxiety/restlessness Last Admin: 10/17/24 15:20 Dose: 0.5 mg Amlodipine Besylate (Amlodipine Besylate 5 Mg Tablet) 5 mg PO DAILY HARESH; Protocol Last Admin: 10/18/24 08:31 Dose: 5 mg Hydroxyzine HCl (Hydroxyzine Hcl 25 Mg Tablet) 25 mg PO Q6H PRN PRN Reason: Anxiety Last Admin: 10/17/24 20:17 Dose: 25 mg Magnesium Hydroxide (Milk Of Magnesia 30 Ml Oral.Susp) 30 ml PO DAILY PRN PRN Reason: Constipation Metoprolol Succinate (Metoprolol Succinate Er 50 Mg Tab.Er.24h) 50 mg PO DAILY HARESH; Protocol Last Admin: 10/18/24 08:31 Dose: 50 mg Multivitamins/Vitamin C (Multivitamin Tablet) 1 tab PO DAILY HARESH Last Admin: 10/18/24 08:31 Dose: 1 tab Olanzapine (Olanzapine 10 Mg Tablet) 20 mg PO BEDTIME HARESH Last Admin: 10/17/24 20:16 Dose: 20 mg Sertraline HCl (Sertraline Hcl 100 Mg Tablet) 200 mg PO BEDTIME HARESH Last Admin: 10/17/24 20:16 Dose: 200 mg Zolpidem Tartrate (Zolpidem Tartrate 5 Mg Tablet) 10 mg PO BEDTIME PRN PRN Reason: Insomnia Last Admin: 10/17/24 20:17 Dose: 10 mg Allergies Allergies Allergy/AdvReac Type Severity Reaction Status Date / Time No Known Allergies Allergy Verified 10/10/24 16:55 [No Known Allergies*] Assessment & Plan Assessment & Plan (1) MDD (major depressive disorder), recurrent severe, without psychosis: Status: Acute Code(s): F33.2 - Major depressive disorder, recurrent severe without psychotic features (2) OCD (obsessive compulsive disorder): Status: Acute Code(s): F42.9 - Obsessive-compulsive disorder, unspecified Plan Mrs. Sparks is a 69 year-old woman with hx of OCD, MDD who was brought via EMS on 10/10 after found unresponsive by . Per EMS, her oxygen saturation on room air was 80%. In the ED, she was intubated and admitted to ICU for airway protection. She was extubated on 10/12. Her utox was positive for benzodiapines. Pt reports it was an intentional OD on xanax- took about 15mg of xanax. She denies it was a suicide attempt but rather attempt to go to sleep and decrease anxiety. Of note, pt had similar intentional OD on ativan back in 03/2024. She has had at least 7 trials of antidepressant in the past 2 years, including TMS. She has had now 2 intentional OD whether due to severe anxiety or with intent to end her life is unclear. We discussed that she has had partial response to medications and perhaps considering ECT. Left VM with call back number to OP psychiatrist, Dr. Isaac. Pt is in agreement to have either or [facility] manage medication in lock box. 10/18/24 Patient reports she is feeling much better. She said her new year's resolution is to not need another psychiatric hospitalization. Patient said that she had an Epiphany, realizing that so much of her anxiety is just due to low self-esteem which translates into depression. Patient said that on the unit now, she no longer has any anxiety and has had none for the past week. She reports that she feels ready to go home. PLAN 1. Admit S1, cv, 15 minutes checks 2. dc wellbutrin as it may increase anxiety- which she has struggled with for a long time and it has been difficult to manage. 3. continue sertraline 200mg po qhs. continue xanax 0.5mg po BID prn 4. pending MOCA/ACL 5. May consider ECT- given tx resistant agitated depression 6. aftercare planning. Patient educated on: diagnosis and medication risk/benefits Informed Consent: understands Reason for continued inpatient stay Substantial Risk for: stable for discharge and rapid decompensation Time Spent With Patient Time: Total time managing care of this patient today ____ minutes.
[2024-10-18 19:43] VITALS: BP 128/65; PULSE 84; TEMP 36.6; O2SAT 94
[2024-10-18] MEDS: OLANZapine 10 MG TABLET 20 MG PO (20:05)
[2024-10-18] MEDS: Zolpidem Tartrate 5 MG TABLET 10 MG PO (20:05)
[2024-10-18] MEDS: Sertraline HCL 100 MG TABLET 200 MG PO (20:06)
[2024-10-18] MEDS: hydrOXYzine HCL 25 MG TABLET PO (20:06)
[2024-10-19 08:24] VITALS: BP 109/66; PULSE 64; RESP 16; TEMP 36.8; O2SAT 94
[2024-10-19] MEDS: Multivitamin TABLET 1 TAB PO (08:25)
[2024-10-19] MEDS: amLODIPine Besylate 5 MG TABLET PO (08:25)
[2024-10-19] MEDS: Metoprolol Succinate ER 50 MG TAB.ER.24H PO (08:25)
--- NOTE | 2024-10-19 10:13 | HO.PSYCHPN ---
Subjective Subjective Date of Service: 10/19/24 Reason For Visit: post SA Subjective Notes: Conditional Voluntary Interim History: Pt slept through the night. Pt reports she feels better in that she is less anxious and less depressed. She asks if she can go home soon. We discussed partial response of treatment and ongoing crisis. Discussed with her OP psychiatrist, Dr. Isaac option of ECT, which he reports he agrees as she has been struggling for sometime now. Will order medical clearance for ECT. May do some treatments here and then transition OP. Review of Systems Review of Systems Pt denies any pain. No changes in vision. No SOB. NO diarrhea nor constipation. Mental Status Exam Mental Status Exam Narrative: Appearance: wearing hospital gown, decreased blinking, mask-like expression, in NAD. Behavior: cooperative Psychomotor: no agitation or retardation noted. no tremors. TP: linear TC: ashamed of OD Mood: better Affect: constricted in range, but congruent SI: denies HI: denies VH/AH: none Delusions: none Insight/judgment: fair x 2. memory/cog: alert, oriented x 3. pending MOCA and ACL. Diagnostics Vital Signs (24Hr): Vital Signs - 24 hr 10/18/24 19:43 10/19/24 08:24 Temperature 97.9 F 98.3 F Pulse Rate 84 64 Respiratory Rate 16 Blood Pressure 128/65 109/66 Pulse Oximetry 94 94 Oxygen Delivery Method Room Air Room Air BMI result Body Mass Index 23.2 Labs 10/16/24 16:35 Medications Medications Current Medications Acetaminophen (Acetaminophen 325 Mg Tablet) 650 mg PO Q6H PRN PRN Reason: Headache/Pain Mild Scale (1-3) Al Hydroxide/Mg Hydroxide (Magnesium Hydrox/Alum Hydrox 30 Ml Oral.Susp) 30 ml PO Q6H PRN PRN Reason: Heartburn/Nausea Alprazolam (Alprazolam 0.5 Mg Tablet) 0.5 mg PO BID PRN PRN Reason: anxiety/restlessness Last Admin: 10/17/24 15:20 Dose: 0.5 mg Amlodipine Besylate (Amlodipine Besylate 5 Mg Tablet) 5 mg PO DAILY HARESH; Protocol Last Admin: 10/19/24 08:25 Dose: 5 mg Hydroxyzine HCl (Hydroxyzine Hcl 25 Mg Tablet) 25 mg PO Q6H PRN PRN Reason: Anxiety Last Admin: 10/18/24 20:06 Dose: 25 mg Magnesium Hydroxide (Milk Of Magnesia 30 Ml Oral.Susp) 30 ml PO DAILY PRN PRN Reason: Constipation Metoprolol Succinate (Metoprolol Succinate Er 50 Mg Tab.Er.24h) 50 mg PO DAILY HARESH; Protocol Last Admin: 10/19/24 08:25 Dose: 50 mg Multivitamins/Vitamin C (Multivitamin Tablet) 1 tab PO DAILY HARESH Last Admin: 10/19/24 08:25 Dose: 1 tab Olanzapine (Olanzapine 10 Mg Tablet) 20 mg PO BEDTIME HARESH Last Admin: 10/18/24 20:05 Dose: 20 mg Sertraline HCl (Sertraline Hcl 100 Mg Tablet) 200 mg PO BEDTIME HARESH Last Admin: 10/18/24 20:06 Dose: 200 mg Zolpidem Tartrate (Zolpidem Tartrate 5 Mg Tablet) 10 mg PO BEDTIME PRN PRN Reason: Insomnia Last Admin: 10/18/24 20:05 Dose: 10 mg Allergies Allergies Allergy/AdvReac Type Severity Reaction Status Date / Time No Known Allergies Allergy Verified 10/10/24 16:55 [No Known Allergies*] Assessment & Plan Assessment & Plan (1) MDD (major depressive disorder), recurrent severe, without psychosis: Status: Acute Code(s): F33.2 - Major depressive disorder, recurrent severe without psychotic features (2) OCD (obsessive compulsive disorder): Status: Acute Code(s): F42.9 - Obsessive-compulsive disorder, unspecified Plan Mrs. Sparks is a 69 year-old woman with hx of OCD, MDD who was brought via EMS on 10/10 after found unresponsive by . Per EMS, her oxygen saturation on room air was 80%. In the ED, she was intubated and admitted to ICU for airway protection. She was extubated on 10/12. Her utox was positive for benzodiapines. Pt reports it was an intentional OD on xanax- took about 15mg of xanax. She denies it was a suicide attempt but rather attempt to go to sleep and decrease anxiety. Of note, pt had similar intentional OD on ativan back in 03/2024. She has had at least 7 trials of antidepressant in the past 2 years, including TMS. She has had now 2 intentional OD whether due to severe anxiety or with intent to end her life is unclear. We discussed that she has had partial response to medications and perhaps considering ECT. Left VM with call back number to OP psychiatrist, Dr. Isaac. Pt is in agreement to have either or [facility] manage medication in lock box. PLAN 10/19/24- ordered medical clearance for ECT. pending MOCA and ACL. Reason for continued inpatient stay Substantial Risk for: harm to self and inability to function Time Spent With Patient Time: Total time managing care of this patient today ____ minutes.
[2024-10-19 13:10] VITALS: BMI 23.8
[2024-10-19] MEDS: hydrOXYzine HCL 25 MG TABLET PO (15:12)
[2024-10-19] MEDS: ALPRAZolam 0.5 MG TABLET PO (16:27)
[2024-10-19 19:22] VITALS: BP 115/65; PULSE 72; TEMP 36.6; O2SAT 96
[2024-10-19] MEDS: OLANZapine 10 MG TABLET 20 MG PO (20:21)
[2024-10-19] MEDS: Sertraline HCL 100 MG TABLET 200 MG PO (20:22)
[2024-10-19] MEDS: Zolpidem Tartrate 5 MG TABLET 10 MG PO (20:22)
--- NOTE | 2024-10-19 21:09 | HO.PM.IMCN ---
History of Present Illness Data of Consult Service Date: 10/19/24 Requesting physician: Ct Franks Primary Care Provider: Unknown Physician HPI Reason for consult: ECT clearance Patient is a 69-year-old female with a past medical history significant for mood disorder, hypertension, HLD, osteoporosis, admitted to Geriatric Psychiatry due to severe anxiety, depression and SI attempt, consulted for ECT risk stratification. The patient reports she has never had ECT done before but is very interested. She has never had any issues with anesthesia in the past. She has no current medical concerns including chest pain, shortness of breath, palpitations, cough, fever, headache, numbness, tingling, abdominal pain, hematochezia, hematemesis, rectal bleeding. She denies any past medical history significant for cardiac issues including TX, arrhythmia, palpitations, CHF. She also denies any pulmonary conditions including COPD, asthma or obstructive sleep apnea. She denies any history of bleeding disorder or history of a clot including CVA, PE or DVT. No history of seizure disorder, space-occupying brain lesion or stroke. Review of Systems Constitutional: Constitutional: Denies chills, Denies fatigue, Denies fever(s) and Denies headache(s) Eyes: Eyes: Denies change in vision ENT: Denies headache(s), Denies nasal congestion, Denies nasal discharge and Denies sore throat Cardiovascular: Cardiovascular: Denies chest pain, Denies rapid heart rate, Denies leg edema, Denies lightheadedness and Denies dyspnea Respiratory: Respiratory: Denies chest congestion, Denies cough, Denies dyspnea and Denies wheezing Gastrointestinal: Gastrointestinal: Denies melena, Denies hematochezia, Denies constipation, Denies diarrhea, Denies nausea, Denies vomiting and Denies hematemesis Genitourinary: Genitourinary: Denies hematuria, Denies dysuria and Denies urinary urgency Musculoskeletal: Musculoskeletal: Denies myalgias, Denies muscle weakness, Denies numbness and Denies tingling Integumentary/Breasts: Skin/Breast: Denies rash Neurologic: Denies confusion, Denies headache(s), Denies numbness and Denies tingling Psychiatric: Psychiatric: Reports as per HPI and Denies confusion Endocrine: Endocrine: Denies fatigue Hematologic/Lymphatic: Hematologic/Lymphatic: Denies easy bleeding and Denies easy bruising Allergic/Immunologic: Allergic/Immunologic: Denies wheezing PMFSH Medical History OCD (obsessive compulsive disorder) MDD (major depressive disorder), recurrent severe, without psychosis Major depressive disorder Arthritis Panic attacks Osteoporosis PTSD (post-traumatic stress disorder) ELIAN (generalized anxiety disorder) PAC (premature atrial contraction) History of anxiety Dyslipidemia Osteoarthritis (arthritis due to wear and tear of joints) Diverticulitis Essential hypertension Hyperkalemia Depression Functional capacity: independent ambulation Family History Mother Dementia Father No problems noted. Surgical History Hx of tonsillectomy Hx of tubal ligation History of total right knee replacement Hx of colonoscopy History of carpal tunnel release Social History Household Members: Spouse Housing: House Are you a primary neonatal critical care nurse to a significant other at home: No Do you presently have visiting nurse or other home services: No Unable to assess alcohol history related to: Unable to respond Alcohol intake: never Comment: 1:1 sitter Patient Tobacco Use Status: Never used Tobacco Smoked in Last 30 Days: No e-Cigarette/Vaping Use: Never Used Patient Interested in Nicotine Replacement: No Patient Given Instructions on How to Stop Smoking: No Second Hand Smoke Exposure: No Use of substances other than those prescribed or required for medical reasons: No Substance Use Type: Marijuana Currently Displaying Signs/Symptoms of Drug Intoxication Withdrawal: No Any prior treatment program specific to substance use: No Have you been hit, kicked, punched, or otherwise hurt by someone within the past year? If so, by whom?: No Do you feel safe in your current relationship?: Yes Is there a partner from a previous relationship who is making you feel unsafe now?: No Are you made to feel afraid or neglected: No Spiritual Healthcare Practices: None Confucianism Healthcare Practices: None Advance Directives: Yes Advance Directives Information Provided: Yes Advance Directives on File: Yes Advance Directives Date on File: 10/11/24 Do you have thoughts of harming others: None Do you have a plan to hurt others: No Plan Recently lost weight without trying: Yes How much weight loss: 2-13 pounds Eating poorly because of decreased appetite: Yes Nutrition screen score: 4 Nutrition Risks: No Nutritional Risk Patient : No : No Poor oral hygiene: No service: No Current occupational status: retired Current occupation: Right Handed Sexual orientation: Straight/Heterosexual Cognitive needs: No Hearing needs: No Vision needs: No Meds Allergies Allergy/AdvReac Type Severity Reaction Status Date / Time No Known Allergies Allergy Verified 10/10/24 16:55 [No Known Allergies*] Active Medications: Current Medications Acetaminophen (Acetaminophen 325 Mg Tablet) 650 mg PO Q6H PRN PRN Reason: Headache/Pain Mild Scale (1-3) Al Hydroxide/Mg Hydroxide (Magnesium Hydrox/Alum Hydrox 30 Ml Oral.Susp) 30 ml PO Q6H PRN PRN Reason: Heartburn/Nausea Alprazolam (Alprazolam 0.5 Mg Tablet) 0.5 mg PO DAILY PRN PRN Reason: anxiety/restlessness Last Admin: 10/19/24 16:27 Dose: 0.5 mg Amlodipine Besylate (Amlodipine Besylate 5 Mg Tablet) 5 mg PO DAILY HARESH; Protocol Last Admin: 10/19/24 08:25 Dose: 5 mg Hydroxyzine HCl (Hydroxyzine Hcl 25 Mg Tablet) 25 mg PO Q6H PRN PRN Reason: Anxiety Last Admin: 10/19/24 15:12 Dose: 25 mg Magnesium Hydroxide (Milk Of Magnesia 30 Ml Oral.Susp) 30 ml PO DAILY PRN PRN Reason: Constipation Metoprolol Succinate (Metoprolol Succinate Er 50 Mg Tab.Er.24h) 50 mg PO DAILY HARESH; Protocol Last Admin: 10/19/24 08:25 Dose: 50 mg Multivitamins/Vitamin C (Multivitamin Tablet) 1 tab PO DAILY HARESH Last Admin: 10/19/24 08:25 Dose: 1 tab Olanzapine (Olanzapine 10 Mg Tablet) 20 mg PO BEDTIME HARESH Last Admin: 10/19/24 20:21 Dose: 20 mg Sertraline HCl (Sertraline Hcl 100 Mg Tablet) 200 mg PO BEDTIME HARESH Last Admin: 10/19/24 20:22 Dose: 200 mg Zolpidem Tartrate (Zolpidem Tartrate 5 Mg Tablet) 10 mg PO BEDTIME PRN PRN Reason: Insomnia Last Admin: 10/19/24 20:22 Dose: 10 mg Home Medications ?Medication ?Instructions ?Recorded ?Confirmed ?Last Taken ?Type multivitamin 1 tab PO DAILY 01/11/24 10/16/24 04/20/24 History alprazolam 0.5 mg tablet 0.5 mg PO BID PRN Anxiety 10/16/24 10/16/24 Unknown History amlodipine 5 mg tablet 5 mg PO DAILY 10/16/24 10/16/24 Unknown History bupropion HCl 75 mg tablet 75 mg PO DAILY 10/16/24 10/17/24 Unknown History metoprolol succinate 50 mg 50 mg PO DAILY 10/16/24 10/16/24 Unknown History tablet,extended release 24 hr olanzapine 20 mg tablet 20 mg PO BEDTIME 10/16/24 10/16/24 Unknown History pravastatin 20 mg tablet 20 mg PO DAILY 10/16/24 10/16/24 Unknown History sertraline 100 mg tablet 200 mg PO BEDTIME 10/16/24 10/17/24 Unknown History trazodone 100 mg tablet 100 mg PO BEDTIME 10/16/24 10/16/24 Unknown History hydroxyzine HCl 25 mg tablet 25 mg PO TID PRN Anxiety 10/17/24 10/17/24 Unknown History zolpidem 10 mg tablet 10 mg PO BEDTIME PRN Insomnia, If 10/17/24 10/17/24 Unknown History Olanzapine not working after 1 hour Physical Exam Vital Signs and Narrative: Vital Signs: Last Vital Signs Temp 97.8 F 10/19/24 19:22 Pulse 72 10/19/24 19:22 Resp 16 10/19/24 08:24 BP 115/65 10/19/24 19:22 Pulse Ox 96 10/19/24 19:22 O2 Del Method Room Air 10/19/24 19:22 BMI result Body Mass Index 23.8 General: AOx3, no acute distress Resp: CTA bilaterally CVS: S1, S2, RRR GI: +BS, NT, no distention Skin: Warm, dry Neuro: Cranial nerves II-XII grossly intact bilaterally. Motor grossly intact bilaterally Extremities: No LE edema Psych: Appropriate affect Const: General: No confusion Orientation/consciousness: No confusion Neuro: General: No confusion Results Labs 10/16/24 16:35 Assessment and Plan (1) Preoperative examination: Status: Acute Plan Patient is a 69-year-old female with a past medical history significant for mood disorder, hypertension, HLD, osteoporosis, admitted to Geriatric Psychiatry due to severe anxiety, depression and SI attempt, consulted for ECT risk stratification. Based on past medical history and exam there are no apparent medical contraindications to ECT. EKG normal. Anesthesia risk stratification per anesthesia. RCRI risk score 0. No further treatment or workup indicated at this time. Thank you for allowing me to participate in the pt's care. Signing off for now. Please contact the medical team if any questions or concerns.
[2024-10-20 08:06] VITALS: BP 144/70; PULSE 69; RESP 18; TEMP 36.3; O2SAT 95
[2024-10-20 08:10] VITALS: BP 144/70; PULSE 69
[2024-10-20] MEDS: amLODIPine Besylate 5 MG TABLET PO (08:10)
[2024-10-20] MEDS: Multivitamin TABLET 1 TAB PO (08:10)
[2024-10-20] MEDS: Metoprolol Succinate ER 50 MG TAB.ER.24H PO (08:10)
[2024-10-20] MEDS: Acetaminophen 325 MG TABLET 650 MG PO (14:44)
--- NOTE | 2024-10-20 15:45 | HO.PSYCHPN ---
Subjective Subjective Date of Service: 10/20/24 Reason For Visit: post SA Subjective Notes: Conditional Voluntary Interim History: Slept through the night. She open to discuss ECT. She reports anxious mood is less. She reports partial response to medication is an issues as she is constantly at the brick of a crisis. No intent or plan to hurt herself at this time, but most OD seem to have an impulsive component. Medication Compliance: Yes Side effects from medications: No Attending Groups: Yes Review of Systems Review of Systems Pt denies any pain. No changes in vision. No SOB. NO diarrhea nor constipation. Constitutional: Denies chills, Denies fatigue, Denies fever(s) and Denies headache(s) Eyes: Denies change in vision Denies headache(s), Denies nasal congestion, Denies nasal discharge and Denies sore throat Cardiovascular: Denies chest pain, Denies rapid heart rate, Denies leg edema, Denies lightheadedness and Denies dyspnea Respiratory: Denies chest congestion, Denies cough, Denies dyspnea and Denies wheezing Gastrointestinal: Denies melena, Denies hematochezia, Denies constipation, Denies diarrhea, Denies nausea, Denies vomiting and Denies hematemesis Musculoskeletal: Denies myalgias, Denies muscle weakness, Denies numbness and Denies tingling Skin/Breast: Denies rash Denies confusion, Denies headache(s), Denies numbness and Denies tingling Psychiatric: Reports as per HPI and Denies confusion Endocrine: Denies fatigue Hematologic/Lymphatic: Denies easy bleeding and Denies easy bruising Allergic/Immunologic: Denies wheezing Mental Status Exam Mental Status Exam Narrative: Appearance: wearing hospital gown, decreased blinking, mask-like expression, in NAD. Behavior: cooperative Psychomotor: no agitation or retardation noted. no tremors. TP: linear TC: ashamed of OD Mood: better Affect: constricted in range, but congruent SI: denies HI: denies VH/AH: none Delusions: none Insight/judgment: fair x 2. memory/cog: alert, oriented x 3. pending MOCA and ACL. Patient Appearance: Appropriate Patient Orientation: Person, Place, Time and Situation Level of Consciousness: Awake Patient Behavior: Appropriate, Cooperative and Good Eye Contact Mood Description: Anxious Affect Description: Blunted Ability to Follow Directions: Fair Speech Pattern: Clear Diagnostics Vital Signs (24Hr): Vital Signs - 24 hr 10/19/24 19:22 10/20/24 08:06 10/20/24 08:10 Temperature 97.8 F 97.3 F Pulse Rate 72 69 Respiratory Rate 18 Blood Pressure 115/65 144/70 H 144/70 H Pulse Oximetry 96 95 Oxygen Delivery Method Room Air Room Air 10/20/24 08:10 Temperature Pulse Rate 69 Respiratory Rate Blood Pressure 144/70 H Pulse Oximetry Oxygen Delivery Method BMI result Body Mass Index 23.8 Labs 10/16/24 16:35 Medications Medications Current Medications Acetaminophen (Acetaminophen 325 Mg Tablet) 650 mg PO Q6H PRN PRN Reason: Headache/Pain Mild Scale (1-3) Last Admin: 10/20/24 14:44 Dose: 650 mg Al Hydroxide/Mg Hydroxide (Magnesium Hydrox/Alum Hydrox 30 Ml Oral.Susp) 30 ml PO Q6H PRN PRN Reason: Heartburn/Nausea Alprazolam (Alprazolam 0.5 Mg Tablet) 0.5 mg PO DAILY PRN PRN Reason: anxiety/restlessness Last Admin: 10/19/24 16:27 Dose: 0.5 mg Amlodipine Besylate (Amlodipine Besylate 5 Mg Tablet) 5 mg PO DAILY HARESH; Protocol Last Admin: 10/20/24 08:10 Dose: 5 mg Hydroxyzine HCl (Hydroxyzine Hcl 25 Mg Tablet) 25 mg PO Q6H PRN PRN Reason: Anxiety Last Admin: 10/19/24 15:12 Dose: 25 mg Magnesium Hydroxide (Milk Of Magnesia 30 Ml Oral.Susp) 30 ml PO DAILY PRN PRN Reason: Constipation Metoprolol Succinate (Metoprolol Succinate Er 50 Mg Tab.Er.24h) 50 mg PO DAILY HARESH; Protocol Last Admin: 10/20/24 08:10 Dose: 50 mg Multivitamins/Vitamin C (Multivitamin Tablet) 1 tab PO DAILY HARESH Last Admin: 10/20/24 08:10 Dose: 1 tab Olanzapine (Olanzapine 10 Mg Tablet) 20 mg PO BEDTIME HARESH Last Admin: 10/19/24 20:21 Dose: 20 mg Sertraline HCl (Sertraline Hcl 100 Mg Tablet) 200 mg PO BEDTIME HARESH Last Admin: 10/19/24 20:22 Dose: 200 mg Zolpidem Tartrate (Zolpidem Tartrate 5 Mg Tablet) 10 mg PO BEDTIME PRN PRN Reason: Insomnia Last Admin: 10/19/24 20:22 Dose: 10 mg Allergies Allergies Allergy/AdvReac Type Severity Reaction Status Date / Time No Known Allergies Allergy Verified 10/10/24 16:55 [No Known Allergies*] Assessment & Plan Assessment & Plan (1) MDD (major depressive disorder), recurrent severe, without psychosis: Status: Inactive Code(s): F33.2 - Major depressive disorder, recurrent severe without psychotic features (2) OCD (obsessive compulsive disorder): Status: Acute Code(s): F42.9 - Obsessive-compulsive disorder, unspecified Plan Mrs. Sparks is a 69 year-old woman with hx of OCD, MDD who was brought via EMS on 10/10 after found unresponsive by . Per EMS, her oxygen saturation on room air was 80%. In the ED, she was intubated and admitted to ICU for airway protection. She was extubated on 10/12. Her utox was positive for benzodiapines. Pt reports it was an intentional OD on xanax- took about 15mg of xanax. She denies it was a suicide attempt but rather attempt to go to sleep and decrease anxiety. Of note, pt had similar intentional OD on ativan back in 03/2024. She has had at least 7 trials of antidepressant in the past 2 years, including TMS. She has had now 2 intentional OD whether due to severe anxiety or with intent to end her life is unclear. We discussed that she has had partial response to medications and perhaps considering ECT. Left with call back number to OP psychiatrist, Dr. Isaac. Pt is in agreement to have either or [facility] manage medication in lock box. 10/18/24 Patient reports she is feeling much better. She said her new year's resolution is to not need another psychiatric hospitalization. Patient said that she had an Epiphany, realizing that so much of her anxiety is just due to low self-esteem which translates into depression. Patient said that on the unit now, she no longer has any anxiety and has had none for the past week. She reports that she feels ready to go home. PLAN 10/20 continue tx. medical consult for ECT clearance completed. Reason for continued inpatient stay Substantial Risk for: inability to function Time Spent With Patient Time: Total time managing care of this patient today ____ minutes.
[2024-10-20 20:00] VITALS: BP 127/60; PULSE 70; TEMP 36.4
[2024-10-20] MEDS: Sertraline HCL 100 MG TABLET 200 MG PO (20:30)
[2024-10-20] MEDS: OLANZapine 10 MG TABLET 20 MG PO (20:30)
[2024-10-20] MEDS: Zolpidem Tartrate 5 MG TABLET 10 MG PO (20:33)
--- NOTE | 2024-10-21 08:44 | HO.PSYCHPN ---
Subjective Subjective Date of Service: 10/21/24 Reason For Visit: post SA Subjective Notes: Conditional Voluntary Healthcare Proxy: No Guardianship: No Medical Problems Affecting Mental Status: No Interim History: 69 yo with anxious depression not responding to medications with pending ECT- had trouble sleeping last pm due to roommate's mh issues- hoping to have that go differently- no current questions re ECt passive si- would like anxiety to go away Medication Compliance: Yes Side effects from medications: No Attending Groups: Yes Review of Systems Acute medical concerns: No Medical Review of Systems: unchanged Mental Status Exam Mental Status Exam Patient Appearance: Unkempt Patient Orientation: Person, Place, Time and Situation Level of Consciousness: Awake Patient Behavior: Appropriate, Cooperative and Good Eye Contact Mood Description: Anxious Affect Description: Blunted Ability to Follow Directions: Good Speech Pattern: Clear Thought Process: Intact and Goal Oriented Depressive Symptoms: Increased Anxiety and Unhappiness Judgement: Fair Diagnostics Vital Signs (24Hr): Vital Signs - 24 hr 10/20/24 20:00 Temperature 97.5 F Pulse Rate 70 Blood Pressure 127/60 Oxygen Delivery Method Room Air BMI result Body Mass Index 23.8 Labs 10/16/24 16:35 Medications Medications Current Medications Acetaminophen (Acetaminophen 325 Mg Tablet) 650 mg PO Q6H PRN PRN Reason: Headache/Pain Mild Scale (1-3) Last Admin: 10/20/24 14:44 Dose: 650 mg Al Hydroxide/Mg Hydroxide (Magnesium Hydrox/Alum Hydrox 30 Ml Oral.Susp) 30 ml PO Q6H PRN PRN Reason: Heartburn/Nausea Alprazolam (Alprazolam 0.5 Mg Tablet) 0.5 mg PO DAILY PRN PRN Reason: anxiety/restlessness Last Admin: 10/19/24 16:27 Dose: 0.5 mg Amlodipine Besylate (Amlodipine Besylate 5 Mg Tablet) 5 mg PO DAILY [facility]; Protocol Last Admin: 10/20/24 08:10 Dose: 5 mg Hydroxyzine HCl (Hydroxyzine Hcl 25 Mg Tablet) 25 mg PO Q6H PRN PRN Reason: Anxiety Last Admin: 10/19/24 15:12 Dose: 25 mg Magnesium Hydroxide (Milk Of Magnesia 30 Ml Oral.Susp) 30 ml PO DAILY PRN PRN Reason: Constipation Metoprolol Succinate (Metoprolol Succinate Er 50 Mg Tab.Er.24h) 50 mg PO DAILY HARESH; Protocol Last Admin: 10/20/24 08:10 Dose: 50 mg Multivitamins/Vitamin C (Multivitamin Tablet) 1 tab PO DAILY HARESH Last Admin: 10/20/24 08:10 Dose: 1 tab Olanzapine (Olanzapine 10 Mg Tablet) 20 mg PO BEDTIME HARESH Last Admin: 10/20/24 20:30 Dose: 20 mg Sertraline HCl (Sertraline Hcl 100 Mg Tablet) 200 mg PO BEDTIME HARESH Last Admin: 10/20/24 20:30 Dose: 200 mg Zolpidem Tartrate (Zolpidem Tartrate 5 Mg Tablet) 10 mg PO BEDTIME PRN PRN Reason: Insomnia Last Admin: 10/20/24 20:33 Dose: 10 mg Allergies Allergies Allergy/AdvReac Type Severity Reaction Status Date / Time No Known Allergies Allergy Verified 10/10/24 16:55 [No Known Allergies*] Assessment & Plan Assessment & Plan (1) MDD (major depressive disorder), recurrent severe, without psychosis: Status: Acute Code(s): F33.2 - Major depressive disorder, recurrent severe without psychotic features (2) OCD (obsessive compulsive disorder): Status: Acute Code(s): F42.9 - Obsessive-compulsive disorder, unspecified Plan Mrs. Sparks is a 69 year-old woman with hx of OCD, MDD who was brought via EMS on 10/10 after found unresponsive by . Per EMS, her oxygen saturation on room air was 80%. In the ED, she was intubated and admitted to ICU for airway protection. She was extubated on 10/12. Her utox was positive for benzodiapines. Pt reports it was an intentional OD on xanax- took about 15mg of xanax. She denies it was a suicide attempt but rather attempt to go to sleep and decrease anxiety. Of note, pt had similar intentional OD on ativan back in 03/2024. She has had at least 7 trials of antidepressant in the past 2 years, including TMS. She has had now 2 intentional OD whether due to severe anxiety or with intent to end her life is unclear. We discussed that she has had partial response to medications and perhaps considering ECT. Left VM with call back number to OP psychiatrist, Dr. Isaac. Pt is in agreement to have either or [facility] manage medication in lock box. 1/1/25 Patient reports she is feeling much better. She said her new year's resolution is to not need another psychiatric hospitalization. Patient said that she had an Epiphany, realizing that so much of her anxiety is just due to low self-esteem which translates into depression. Patient said that on the unit now, she no longer has any anxiety and has had none for the past week. She reports that she feels ready to go home. PLAN 1. Admit S1, cv, 15 minutes checks 2. dc wellbutrin as it may increase anxiety- which she has struggled with for a long time and it has been difficult to manage. 3. continue sertraline 200mg po qhs. continue xanax 0.5mg po BID prn 4. pending MOCA/ACL 5. May consider ECT- given tx resistant agitated depression 6. aftercare planning. Patient educated on: diagnosis and ECT Informed Consent: understands Reason for continued inpatient stay Substantial Risk for: rapid decompensation Time Spent With Patient Time: Total time managing care of this patient today ____ minutes.
[2024-10-21 09:11] VITALS: BP 125/63; PULSE 80; RESP 18; TEMP 36.6; O2SAT 95
[2024-10-21] MEDS: amLODIPine Besylate 5 MG TABLET PO (09:12)
[2024-10-21] MEDS: Metoprolol Succinate ER 50 MG TAB.ER.24H PO (09:12)
[2024-10-21] MEDS: Multivitamin TABLET 1 TAB PO (09:13)
[2024-10-21] MEDS: Acetaminophen 325 MG TABLET 650 MG PO (11:06)
[2024-10-21] MEDS: hydrOXYzine HCL 25 MG TABLET PO (11:53)
--- NOTE | 2024-10-21 18:15 | PC.NURSE ---
Patient stated that she was afraid of her roommate and she was acting aggressive towards her and kept her up all night. Room change made.
[2024-10-21] MEDS: Sertraline HCL 100 MG TABLET 200 MG PO (19:49)
[2024-10-21] MEDS: Zolpidem Tartrate 5 MG TABLET 10 MG PO (19:50)
[2024-10-21] MEDS: OLANZapine 10 MG TABLET 20 MG PO (19:51)
[2024-10-21 20:00] VITALS: BP 116/62; PULSE 72; RESP 16; TEMP 36.3; O2SAT 94
[2024-10-22] MEDS: Acetaminophen 325 MG TABLET 650 MG PO ×2 (05:29→16:23)
[2024-10-22 07:55] VITALS: BP 127/60; PULSE 61; RESP 18; TEMP 36.6; O2SAT 96
[2024-10-22] MEDS: Multivitamin TABLET 1 TAB PO (08:23)
[2024-10-22] MEDS: Metoprolol Succinate ER 50 MG TAB.ER.24H PO (08:23)
[2024-10-22] MEDS: amLODIPine Besylate 5 MG TABLET PO (08:23)
--- NOTE | 2024-10-22 12:07 | P.PNPSI_ITS ---
Subjective Subjective Date of Service: 10/22/24 Reason For Visit: post SA Subjective Notes: Conditional Voluntary Healthcare Proxy: No Guardianship: No Medical Problems Affecting Mental Status: No Interim History: 69 yo with anxious depression, we reviewed ECT s/e = pt looking forward to something working Medication Compliance: Yes Side effects from medications: No Attending Groups: Yes Review of Systems Acute medical concerns: No Medical Review of Systems: unchanged Mental Status Exam Mental Status Exam Patient Appearance: Appropriate Patient Orientation: Person, Place, Time and Situation Level of Consciousness: Awake Mood Description: Anxious Affect Description: Blunted Ability to Follow Directions: Fair Speech Pattern: Clear Hallucinations: None Delusions: Not Present Thought Process: Intact and Goal Oriented Depressive Symptoms: Increased Anxiety, Muscle Tension, Loss of Int. in Activity, Feelings of Worthlessness, Hopelessness, Isolating-Friends/Family, Unhappiness and Loss of Energy Judgement: Fair Diagnostics Vital Signs (24Hr): Vital Signs - 24 hr 10/21/24 20:00 10/22/24 07:55 Temperature 97.4 F 97.9 F Pulse Rate 72 61 Respiratory Rate 16 18 Blood Pressure 116/62 127/60 Pulse Oximetry 94 96 Oxygen Delivery Method Room Air Room Air BMI result Body Mass Index 23.8 Labs 10/16/24 16:35 Medications Medications Current Medications Acetaminophen (Acetaminophen 325 Mg Tablet) 650 mg PO Q6H PRN PRN Reason: Headache/Pain Mild Scale (1-3) Last Admin: 10/22/24 05:29 Dose: 650 mg Al Hydroxide/Mg Hydroxide (Magnesium Hydrox/Alum Hydrox 30 Ml Oral.Susp) 30 ml PO Q6H PRN PRN Reason: Heartburn/Nausea Alprazolam (Alprazolam 0.5 Mg Tablet) 0.5 mg PO DAILY PRN PRN Reason: anxiety/restlessness Last Admin: 10/19/24 16:27 Dose: 0.5 mg Amlodipine Besylate (Amlodipine Besylate 5 Mg Tablet) 5 mg PO DAILY HARESH; Protocol Last Admin: 10/22/24 08:23 Dose: 5 mg Hydroxyzine HCl (Hydroxyzine Hcl 25 Mg Tablet) 25 mg PO Q6H PRN PRN Reason: Anxiety Last Admin: 10/21/24 11:53 Dose: 25 mg Magnesium Hydroxide (Milk Of Magnesia 30 Ml Oral.Susp) 30 ml PO DAILY PRN PRN Reason: Constipation Metoprolol Succinate (Metoprolol Succinate Er 50 Mg Tab.Er.24h) 50 mg PO DAILY COUNTS INCLUDE 234 BEDS AT THE [facility]; Protocol Last Admin: 10/22/24 08:23 Dose: 50 mg Multivitamins/Vitamin C (Multivitamin Tablet) 1 tab PO DAILY COUNTS INCLUDE 234 BEDS AT THE [facility] Last Admin: 10/22/24 08:23 Dose: 1 tab Olanzapine (Olanzapine 10 Mg Tablet) 20 mg PO BEDTIME COUNTS INCLUDE 234 BEDS AT THE [facility] Last Admin: 10/21/24 19:51 Dose: 20 mg Sertraline HCl (Sertraline Hcl 100 Mg Tablet) 200 mg PO BEDTIME COUNTS INCLUDE 234 BEDS AT THE [facility] Last Admin: 10/21/24 19:49 Dose: 200 mg Zolpidem Tartrate (Zolpidem Tartrate 5 Mg Tablet) 10 mg PO BEDTIME PRN PRN Reason: Insomnia Last Admin: 10/21/24 19:50 Dose: 10 mg Allergies Allergies Allergy/AdvReac Type Severity Reaction Status Date / Time No Known Allergies Allergy Verified 10/10/24 16:55 [No Known Allergies*] Assessment & Plan Assessment & Plan (1) MDD (major depressive disorder), recurrent severe, without psychosis: Status: Acute Code(s): F33.2 - Major depressive disorder, recurrent severe without psychotic features (2) OCD (obsessive compulsive disorder): Status: Acute Code(s): F42.9 - Obsessive-compulsive disorder, unspecified Plan Mrs. Sparks is a 69 year-old woman with hx of OCD, MDD who was brought via EMS on 10/10 after found unresponsive by . Per EMS, her oxygen saturation on room air was 80%. In the ED, she was intubated and admitted to ICU for airway protection. She was extubated on 10/12. Her utox was positive for benzodiapines. Pt reports it was an intentional OD on xanax- took about 15mg of xanax. She denies it was a suicide attempt but rather attempt to go to sleep and decrease anxiety. Of note, pt had similar intentional OD on ativan back in 03/2024. She has had at least 7 trials of antidepressant in the past 2 years, including TMS. She has had now 2 intentional OD whether due to severe anxiety or with intent to end her life is unclear. We discussed that she has had partial response to medications and perhaps considering ECT. Left with call back number to OP psychiatrist, Dr. Isaac. Pt is in agreement to have either or [facility] manage medication in lock box. 10/18/24 Patient reports she is feeling much better. She said her new year's resolution is to not need another psychiatric hospitalization. Patient said that she had an Epiphany, realizing that so much of her anxiety is just due to low self-esteem which translates into depression. Patient said that on the unit now, she no longer has any anxiety and has had none for the past week. She reports that she feels ready to go home. PLAN 1. Admit S1, cv, 15 minutes checks 2. dc wellbutrin as it may increase anxiety- which she has struggled with for a long time and it has been difficult to manage. 3. continue sertraline 200mg po qhs. continue xanax 0.5mg po BID prn 4. pending MOCA/ACL 5. May consider ECT- given tx resistant agitated depression 6. aftercare planning. 10/22/24 patient continues to look forward to ECt and seems aware of risk /benefit- Patient educated on: diagnosis and ECT Informed Consent: understands Reason for continued inpatient stay Substantial Risk for: harm to self and rapid decompensation Time Spent With Patient Time: Total time managing care of this patient today ____ minutes.
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
[2024-10-22] MEDS: hydrOXYzine HCL 25 MG TABLET PO (15:51)
[2024-10-22 20:00] VITALS: BP 122/65; PULSE 68; RESP 16; TEMP 36.8; O2SAT 94
[2024-10-22] MEDS: Zolpidem Tartrate 5 MG TABLET 10 MG PO (20:07)
[2024-10-22] MEDS: Sertraline HCL 100 MG TABLET 200 MG PO (20:07)
[2024-10-22] MEDS: OLANZapine 10 MG TABLET 20 MG PO (20:08)
[2024-10-23] MEDS: Multivitamin TABLET 1 TAB PO (08:41)
[2024-10-23] MEDS: Acetaminophen 325 MG TABLET 650 MG PO (08:41)
[2024-10-23 08:42] VITALS: BP 142/75; PULSE 67; RESP 16; TEMP 36.7; O2SAT 97
[2024-10-23] MEDS: Metoprolol Succinate ER 50 MG TAB.ER.24H PO (08:44)
[2024-10-23] MEDS: amLODIPine Besylate 5 MG TABLET PO (08:45)
[2024-10-23] MEDS: hydrOXYzine HCL 25 MG TABLET PO (14:13)
--- NOTE | 2024-10-23 17:00 | HO.PSYCHPN ---
Subjective Subjective Date of Service: 10/23/24 Reason For Visit: post SA Subjective Notes: Conditional Voluntary Interim History: Pt looking forward to have ECT. Cognitive testing completed last week including MOCA , ACL 4.2. deficits in visuo spatial and executive function. showing moderate cognitive impairment. She is taking medications as prescribed. Less anxious but is having episodes of increase anxiety later in the day. Medication Compliance: Yes Mental Status Exam Mental Status Exam Narrative: Appearance: wearing hospital gown, decreased blinking, mask-like expression, in NAD. Behavior: cooperative Psychomotor: no agitation or retardation noted. no tremors. TP: linear TC: ashamed of OD Mood:depressed but improved Affect: constricted in range, but congruent SI: denies HI: denies VH/AH: none Delusions: none Insight/judgment: fair x 2. Patient states she feels ashamed about her overdose attempt glad that she is alive. Was able to take in information regarding ECT risks benefits alternatives reviewed with patient memory/cog: alert, oriented x 3. MOCA , ACL 4.2. deficits in visuo spatial and executive function. showing moderate cognitive impairment. Diagnostics Vital Signs (24Hr): Vital Signs - 24 hr 10/22/24 20:00 10/23/24 08:42 Temperature 98.2 F 98.1 F Pulse Rate 68 67 Respiratory Rate 16 16 Blood Pressure 122/65 142/75 H Pulse Oximetry 94 97 Oxygen Delivery Method Room Air BMI result Body Mass Index 23.8 Labs 10/16/24 16:35 Medications Medications Current Medications Acetaminophen (Acetaminophen 325 Mg Tablet) 650 mg PO Q6H PRN PRN Reason: Headache/Pain Mild Scale (1-3) Last Admin: 10/23/24 08:41 Dose: 650 mg Al Hydroxide/Mg Hydroxide (Magnesium Hydrox/Alum Hydrox 30 Ml Oral.Susp) 30 ml PO Q6H PRN PRN Reason: Heartburn/Nausea Alprazolam (Alprazolam 0.5 Mg Tablet) 0.5 mg PO DAILY PRN PRN Reason: anxiety/restlessness Last Admin: 10/19/24 16:27 Dose: 0.5 mg Amlodipine Besylate (Amlodipine Besylate 5 Mg Tablet) 5 mg PO DAILY HARESH; Protocol Last Admin: 10/23/24 08:45 Dose: 5 mg Hydroxyzine HCl (Hydroxyzine Hcl 25 Mg Tablet) 25 mg PO Q6H PRN PRN Reason: Anxiety Last Admin: 10/23/24 14:13 Dose: 25 mg Magnesium Hydroxide (Milk Of Magnesia 30 Ml Oral.Susp) 30 ml PO DAILY PRN PRN Reason: Constipation Metoprolol Succinate (Metoprolol Succinate Er 50 Mg Tab.Er.24h) 50 mg PO DAILY HARESH; Protocol Last Admin: 10/23/24 08:44 Dose: 50 mg Multivitamins/Vitamin C (Multivitamin Tablet) 1 tab PO DAILY HARESH Last Admin: 10/23/24 08:41 Dose: 1 tab Olanzapine (Olanzapine 10 Mg Tablet) 20 mg PO BEDTIME HARESH Last Admin: 10/22/24 20:08 Dose: 20 mg Sertraline HCl (Sertraline Hcl 100 Mg Tablet) 200 mg PO BEDTIME HARESH Last Admin: 10/22/24 20:07 Dose: 200 mg Zolpidem Tartrate (Zolpidem Tartrate 5 Mg Tablet) 10 mg PO BEDTIME PRN PRN Reason: Insomnia Last Admin: 10/22/24 20:07 Dose: 10 mg Allergies Allergies Allergy/AdvReac Type Severity Reaction Status Date / Time No Known Allergies Allergy Verified 10/10/24 16:55 [No Known Allergies*] Assessment & Plan Assessment & Plan (1) MDD (major depressive disorder), recurrent severe, without psychosis: Status: Inactive Code(s): F33.2 - Major depressive disorder, recurrent severe without psychotic features (2) OCD (obsessive compulsive disorder): Status: Acute Code(s): F42.9 - Obsessive-compulsive disorder, unspecified Plan Mrs. Sparks is a 69 year-old woman with hx of OCD, MDD who was brought via EMS on 10/10 after found unresponsive by . Per EMS, her oxygen saturation on room air was 80%. In the ED, she was intubated and admitted to ICU for airway protection. She was extubated on 10/12. Her utox was positive for benzodiapines. Pt reports it was an intentional OD on xanax- took about 15mg of xanax. She denies it was a suicide attempt but rather attempt to go to sleep and decrease anxiety. Of note, pt had similar intentional OD on ativan back in 03/2024. She has had at least 7 trials of antidepressant in the past 2 years, including TMS. She has had now 2 intentional OD whether due to severe anxiety or with intent to end her life is unclear. We discussed that she has had partial response to medications and perhaps considering ECT. Left VM with call back number to OP psychiatrist, Dr. Isaac. Pt is in agreement to have either or [facility]NA manage medication in lock box. 10/18/24 Patient reports she is feeling much better. She said her new year's resolution is to not need another psychiatric hospitalization. Patient said that she had an Epiphany, realizing that so much of her anxiety is just due to low self-esteem which translates into depression. Patient said that on the unit now, she no longer has any anxiety and has had none for the past week. PLAN 1. Admit S1, cv, 15 minutes checks 2. dc wellbutrin as it may increase anxiety- which she has struggled with for a long time and it has been difficult to manage. 3. continue sertraline 200mg po qhs. continue xanax 0.5mg po BID prn 4. pending MOCA/ACL 5. May consider ECT- given tx resistant agitated depression 6. aftercare planning. 10/22/24 patient continues to look forward to ECt and seems aware of risk /benefit- 10/23 continue tx- ECT Reason for continued inpatient stay Substantial Risk for: inability to function Time Spent With Patient Time: Total time managing care of this patient today ____ minutes.
[2024-10-23 19:46] VITALS: BP 122/69; PULSE 73; TEMP 36.6; O2SAT 93
[2024-10-23] MEDS: OLANZapine 10 MG TABLET 20 MG PO (20:42)
[2024-10-23] MEDS: Sertraline HCL 100 MG TABLET 200 MG PO (20:43)
[2024-10-23] MEDS: Zolpidem Tartrate 5 MG TABLET 10 MG PO (20:44)
--- NOTE | 2024-10-24 00:44 | PC.NURSE ---
Patient is pleasant on approached, cooperative and med compliant. Pt verbalized that she is still anxious and rated it as 6/10. Pt denies depression/SI/HI/pain and feels safe in the unit. Pt said her appetite is good but she is not sleeping very well at night. Pt. give Ambien for sleep w/ effect. Pt eats 100% of her dinner and drinks 360ml of fluids.
[2024-10-24] MEDS: hydrOXYzine HCL 25 MG TABLET PO ×2 (00:55→14:24)
[2024-10-24 08:21] VITALS: BP 158/72; PULSE 69; RESP 16; TEMP 37.2; O2SAT 95
[2024-10-24] MEDS: Metoprolol Succinate ER 50 MG TAB.ER.24H PO (08:22)
[2024-10-24] MEDS: Multivitamin TABLET 1 TAB PO (08:22)
[2024-10-24] MEDS: amLODIPine Besylate 5 MG TABLET PO (08:23)
[2024-10-24] MEDS: Acetaminophen 325 MG TABLET 650 MG PO (09:34)
--- NOTE | 2024-10-24 12:56 | HO.PSYCHPN ---
Subjective Subjective Date of Service: 10/24/24 Reason For Visit: post SA Subjective Notes: Conditional Voluntary Interim History: This commercial insurance underwriter met with patient and her to go over expectation with ECT. Both of them are looking forward to try ECT. She reports feeling anxious about tx but hopeful it will make a more sustained improvement. She denies SI/HI. She tends to get much more anxious in the afternoon. Medication Compliance: Yes Side effects from medications: No Attending Groups: Yes Review of Systems Review of Systems Pt denies any pain. No changes in vision. No SOB. NO diarrhea nor constipation. Constitutional: Denies chills, Denies fatigue, Denies fever(s) and Denies headache(s) Eyes: Denies change in vision Denies headache(s), Denies nasal congestion, Denies nasal discharge and Denies sore throat Cardiovascular: Denies chest pain, Denies rapid heart rate, Denies leg edema, Denies lightheadedness and Denies dyspnea Respiratory: Denies chest congestion, Denies cough, Denies dyspnea and Denies wheezing Gastrointestinal: Denies melena, Denies hematochezia, Denies constipation, Denies diarrhea, Denies nausea, Denies vomiting and Denies hematemesis Musculoskeletal: Denies myalgias, Denies muscle weakness, Denies numbness and Denies tingling Skin/Breast: Denies rash Denies confusion, Denies headache(s), Denies numbness and Denies tingling Psychiatric: Reports as per HPI and Denies confusion Endocrine: Denies fatigue Hematologic/Lymphatic: Denies easy bleeding and Denies easy bruising Allergic/Immunologic: Denies wheezing Mental Status Exam Mental Status Exam Narrative: Appearance: wearing hospital gown, decreased blinking, mask-like expression, in NAD. Behavior: cooperative Psychomotor: no agitation or retardation noted. no tremors. TP: linear TC: ashamed of OD Mood:depressed but improved Affect: constricted in range, but congruent SI: denies HI: denies VH/AH: none Delusions: none Insight/judgment: fair x 2. Patient states she feels ashamed about her overdose attempt glad that she is alive. Was able to take in information regarding ECT risks benefits alternatives reviewed with patient memory/cog: alert, oriented x 3. MOCA 23/30, ACL 4.2. deficits in visuo spatial and executive function. showing moderate cognitive impairment. Diagnostics Vital Signs (24Hr): Vital Signs - 24 hr 10/23/24 19:46 10/24/24 08:21 Temperature 97.9 F 98.9 F Pulse Rate 73 69 Respiratory Rate 16 Blood Pressure 122/69 158/72 H Pulse Oximetry 93 95 Oxygen Delivery Method Room Air Room Air BMI result Body Mass Index 23.8 Labs 10/16/24 16:35 Medications Medications Current Medications Acetaminophen (Acetaminophen 325 Mg Tablet) 650 mg PO Q6H PRN PRN Reason: Headache/Pain Mild Scale (1-3) Last Admin: 10/24/24 09:34 Dose: 650 mg Al Hydroxide/Mg Hydroxide (Magnesium Hydrox/Alum Hydrox 30 Ml Oral.Susp) 30 ml PO Q6H PRN PRN Reason: Heartburn/Nausea Alprazolam (Alprazolam 0.5 Mg Tablet) 0.5 mg PO DAILY PRN PRN Reason: anxiety/restlessness Last Admin: 10/19/24 16:27 Dose: 0.5 mg Amlodipine Besylate (Amlodipine Besylate 5 Mg Tablet) 5 mg PO DAILY [facility]; Protocol Last Admin: 10/24/24 08:23 Dose: 5 mg Hydroxyzine HCl (Hydroxyzine Hcl 25 Mg Tablet) 25 mg PO Q6H PRN PRN Reason: Anxiety Last Admin: 10/24/24 00:55 Dose: 25 mg Magnesium Hydroxide (Milk Of Magnesia 30 Ml Oral.Susp) 30 ml PO DAILY PRN PRN Reason: Constipation Metoprolol Succinate (Metoprolol Succinate Er 50 Mg Tab.Er.24h) 50 mg PO DAILY [facility]; Protocol Last Admin: 10/24/24 08:22 Dose: 50 mg Multivitamins/Vitamin C (Multivitamin Tablet) 1 tab PO DAILY [facility] Last Admin: 10/24/24 08:22 Dose: 1 tab Olanzapine (Olanzapine 10 Mg Tablet) 20 mg PO BEDTIME [facility]ESH Last Admin: 10/23/24 20:42 Dose: 20 mg Sertraline HCl (Sertraline Hcl 100 Mg Tablet) 200 mg PO BEDTIME HARESH Last Admin: 10/23/24 20:43 Dose: 200 mg Zolpidem Tartrate (Zolpidem Tartrate 5 Mg Tablet) 10 mg PO BEDTIME PRN PRN Reason: Insomnia Last Admin: 10/23/24 20:44 Dose: 10 mg Allergies Allergies Allergy/AdvReac Type Severity Reaction Status Date / Time No Known Allergies Allergy Verified 10/10/24 16:55 [No Known Allergies*] Assessment & Plan Assessment & Plan (1) MDD (major depressive disorder), recurrent severe, without psychosis: Status: Inactive Code(s): F33.2 - Major depressive disorder, recurrent severe without psychotic features (2) OCD (obsessive compulsive disorder): Status: Acute Code(s): F42.9 - Obsessive-compulsive disorder, unspecified Plan Mrs. Sparks is a 69 year-old woman with hx of OCD, MDD who was brought via EMS on 10/10 after found unresponsive by . Per EMS, her oxygen saturation on room air was 80%. In the ED, she was intubated and admitted to ICU for airway protection. She was extubated on 10/12. Her utox was positive for benzodiapines. Pt reports it was an intentional OD on xanax- took about 15mg of xanax. She denies it was a suicide attempt but rather attempt to go to sleep and decrease anxiety. Of note, pt had similar intentional OD on ativan back in 03/2024. She has had at least 7 trials of antidepressant in the past 2 years, including TMS. She has had now 2 intentional OD whether due to severe anxiety or with intent to end her life is unclear. We discussed that she has had partial response to medications and perhaps considering ECT. Left with call back number to OP psychiatrist, Dr. Isaac. Pt is in agreement to have either or [facility] manage medication in lock box. 10/18/24 Patient reports she is feeling much better. She said her new year's resolution is to not need another psychiatric hospitalization. Patient said that she had an Epiphany, realizing that so much of her anxiety is just due to low self-esteem which translates into depression. Patient said that on the unit now, she no longer has any anxiety and has had none for the past week. PLAN 1. Admit S1, cv, 15 minutes checks 2. dc wellbutrin as it may increase anxiety- which she has struggled with for a long time and it has been difficult to manage. 3. continue sertraline 200mg po qhs. continue xanax 0.5mg po BID prn 4. pending MOCA/ACL 5. May consider ECT- given tx resistant agitated depression 6. aftercare planning. 10/22/24 patient continues to look forward to ECt and seems aware of risk /benefit- 10/23 continue tx- ECT 10/24 continue tx. given one time dose of clonidine at about 4pm for increased anxiety.ECT tomorrow. Reason for continued inpatient stay Substantial Risk for: inability to function Time Spent With Patient Time: Total time managing care of this patient today ____ minutes.
[2024-10-24 16:00] VITALS: BP 144/80
[2024-10-24] MEDS: cloNIDine HCL 0.1 MG TABLET PO (16:04)
[2024-10-24] MEDS: ALPRAZolam 0.5 MG TABLET PO (16:04)
[2024-10-24] MEDS: Sertraline HCL 100 MG TABLET 200 MG PO (19:53)
[2024-10-24] MEDS: OLANZapine 10 MG TABLET 20 MG PO (19:53)
[2024-10-24] MEDS: Zolpidem Tartrate 5 MG TABLET 10 MG PO (19:56)
[2024-10-24 20:43] VITALS: BP 102/57; PULSE 66; RESP 16; TEMP 36.7; O2SAT 96
[2024-10-25] VITALS (9 sets, daily range): BP systolic 118–170; BP diastolic 70–95; PULSE 71–116; RESP 16–18; TEMP 36.8–37.7; O2SAT 92–96
--- NOTE | 2024-10-25 07:00 | P.CONAN_ITS ---
FORM[facility]LY [facility], [facility] Active Problems Active Problems: All Active Problems Overdose (Acute) S/P total knee arthroplasty (Acute) OCD (obsessive compulsive disorder) (Acute) Chronic insomnia (Acute) Status post total left knee replacement (Acute) Pre-op evaluation (Acute) Mild recurrent major depression (Acute) Skin lesion (Acute) Primary osteoarthritis of left knee (Acute) Sinusitis (Acute) Osteoporosis (Acute) Well woman exam (Acute) Status post total right knee replacement (Acute) Palpitations (Acute) Hypercalcemia (Acute) PAC (premature atrial contraction) (Acute) Preoperative examination (Acute) Primary osteoarthritis of right knee (Acute) Essential hypertension (Acute) Dyslipidemia (Acute) Past Medical History Medical History OCD (obsessive compulsive disorder) MDD (major depressive disorder), recurrent severe, without psychosis Major depressive disorder Arthritis Panic attacks Osteoporosis PTSD (post-traumatic stress disorder) ELIAN (generalized anxiety disorder) PAC (premature atrial contraction) History of anxiety Dyslipidemia Osteoarthritis (arthritis due to wear and tear of joints) Diverticulitis Essential hypertension Hyperkalemia Depression Functional capacity: independent ambulation Family History Family History Mother Dementia Father No problems noted. Family history of problems with anesthesia: No Surgical History Surgical History Hx of tonsillectomy Hx of tubal ligation History of total right knee replacement Hx of colonoscopy History of carpal tunnel release History of Problems with Anesthesia: No Social History Social History Household Members: Spouse Housing: House Are you a primary care coordinator to a significant other at home: No Do you presently have visiting nurse or other home services: No Unable to assess alcohol history related to: Unable to respond Alcohol intake: never Comment: 1:1 sitter Patient Tobacco Use Status: Never used Tobacco Smoked in Last 30 Days: No e-Cigarette/Vaping Use: Never Used Patient Interested in Nicotine Replacement: No Patient Given Instructions on How to Stop Smoking: No Second Hand Smoke Exposure: No Use of substances other than those prescribed or required for medical reasons: No Substance Use Type: Marijuana Currently Displaying Signs/Symptoms of Drug Intoxication Withdrawal: No Any prior treatment program specific to substance use: No Have you been hit, kicked, punched, or otherwise hurt by someone within the past year? If so, by whom?: No Do you feel safe in your current relationship?: Yes Is there a partner from a previous relationship who is making you feel unsafe now?: No Are you made to feel afraid or neglected: No Spiritual Healthcare Practices: None Amish Healthcare Practices: None Advance Directives: Yes Advance Directives Information Provided: Yes Advance Directives on File: Yes Advance Directives Date on File: 10/11/24 Do you have thoughts of harming others: None Do you have a plan to hurt others: No Plan Recently lost weight without trying: Yes How much weight loss: 2-13 pounds Eating poorly because of decreased appetite: Yes Nutrition screen score: 4 Nutrition Risks: No Nutritional Risk Patient : No : No Poor oral hygiene: No service: No Current occupational status: retired Current occupation: Right Handed Sexual orientation: Straight/Heterosexual Cognitive needs: No Hearing needs: No Vision needs: No Meds Allergies Allergy/AdvReac Type Severity Reaction Status Date / Time No Known Allergies Allergy Verified 10/10/24 16:55 [No Known Allergies*] Active Medications: Current Medications Acetaminophen (Acetaminophen 325 Mg Tablet) 650 mg PO Q6H PRN PRN Reason: Headache/Pain Mild Scale (1-3) Last Admin: 10/24/24 09:34 Dose: 650 mg Al Hydroxide/Mg Hydroxide (Magnesium Hydrox/Alum Hydrox 30 Ml Oral.Susp) 30 ml PO Q6H PRN PRN Reason: Heartburn/Nausea Alprazolam (Alprazolam 0.5 Mg Tablet) 0.5 mg PO DAILY PRN PRN Reason: anxiety/restlessness Last Admin: 10/24/24 16:04 Dose: 0.5 mg Amlodipine Besylate (Amlodipine Besylate 5 Mg Tablet) 5 mg PO DAILY HARESH; Protocol Last Admin: 10/24/24 08:23 Dose: 5 mg Hydroxyzine HCl (Hydroxyzine Hcl 25 Mg Tablet) 25 mg PO Q6H PRN PRN Reason: Anxiety Last Admin: 10/24/24 14:24 Dose: 25 mg Lactated Ringer's (Lr) 1,000 mls @ 50 mls/hr IVCONT .Q20H HARESH Magnesium Hydroxide (Milk Of Magnesia 30 Ml Oral.Susp) 30 ml PO DAILY PRN PRN Reason: Constipation Metoprolol Succinate (Metoprolol Succinate Er 50 Mg Tab.Er.24h) 50 mg PO DAILY HARESH; Protocol Last Admin: 10/24/24 08:22 Dose: 50 mg Multivitamins/Vitamin C (Multivitamin Tablet) 1 tab PO DAILY HARESH Last Admin: 10/24/24 08:22 Dose: 1 tab Naloxone HCl (Naloxone Hcl 0.4 Mg/Ml Vial) 0.04 mg IVPUSH Q5M PRN PRN Reason: Excessive sedation or RR < 8 Olanzapine (Olanzapine 10 Mg Tablet) 20 mg PO BEDTIME HARESH Last Admin: 10/24/24 19:53 Dose: 20 mg Sertraline HCl (Sertraline Hcl 100 Mg Tablet) 200 mg PO BEDTIME HARESH Last Admin: 10/24/24 19:53 Dose: 200 mg Zolpidem Tartrate (Zolpidem Tartrate 5 Mg Tablet) 10 mg PO BEDTIME PRN PRN Reason: Insomnia Last Admin: 10/24/24 19:56 Dose: 10 mg Home Medications ?Medication ?Instructions ?Recorded ?Confirmed ?Last Taken ?Type multivitamin 1 tab PO DAILY 01/11/24 10/16/24 04/20/24 History alprazolam 0.5 mg tablet 0.5 mg PO BID PRN Anxiety 10/16/24 10/16/24 Unknown History amlodipine 5 mg tablet 5 mg PO DAILY 10/16/24 10/16/24 Unknown History bupropion HCl 75 mg tablet 75 mg PO DAILY 10/16/24 10/17/24 Unknown History metoprolol succinate 50 mg 50 mg PO DAILY 10/16/24 10/16/24 Unknown History tablet,extended release 24 hr olanzapine 20 mg tablet 20 mg PO BEDTIME 10/16/24 10/16/24 Unknown History pravastatin 20 mg tablet 20 mg PO DAILY 10/16/24 10/16/24 Unknown History sertraline 100 mg tablet 200 mg PO BEDTIME 10/16/24 10/17/24 Unknown History trazodone 100 mg tablet 100 mg PO BEDTIME 10/16/24 10/16/24 Unknown History hydroxyzine HCl 25 mg tablet 25 mg PO TID PRN Anxiety 10/17/24 10/17/24 Unknown History zolpidem 10 mg tablet 10 mg PO BEDTIME PRN Insomnia, If 10/17/24 10/17/24 Unknown History Olanzapine not working after 1 hour Exam Height,Weight and Vital Signs: Height 5 ft 7 in Weight 68.946 kg Last Vital Signs Temp 98.5 F 10/25/24 06:20 Pulse 71 10/25/24 06:20 Resp 16 10/25/24 06:20 BP 137/73 10/25/24 06:20 Pulse Ox 93 10/25/24 06:20 O2 Del Method Room Air 10/25/24 06:20 Pertinent Lab Results Pertinent Lab Results: Laboratory Tests 10/16/24 10/17/24 16:35 07:56 Sodium 140 Potassium 3.6 Chloride 107 Carbon Dioxide 26 Anion Gap 11 L BUN 26 H Creatinine 0.78 Estim Creat Clear Calc 64.3 Estimated GFR > 60 Random Glucose 90 Estimat Average Glucose 111 Hemoglobin A1c % 5.5 Calcium 8.6 Magnesium 2.1 Total Bilirubin 0.3 AST 19 ALT 31 Alkaline Phosphatase 69 Total Protein 7.1 Albumin 4.0 Triglycerides 166 H Cholesterol 195 LDL Cholesterol, Calc 132 H HDL Cholesterol 30 L Vitamin B12 505 Folate 14.4 TSH 2.22 Airway Mallampati Class: II (caps laterally) TM Dist: >3cm Neck ROM: Full Heart: rrr Lungs: cta Assessment and Plan Assessment Anesthesia Assessment: Anesthesia Plan Discussed and Chart Reviewed Final Anesthetic Review Family History of Problems with Anesthesia: No History of Problems with Anesthesia: No NPO: Yes ASA Class: III Final Preanesthetic Review: No Changes in Pt Med Stat, Meds/Allgs Chart Reviewed and Consent Obtained/Reviewed Patient Risk: Intermediate Procedure Risk: Intermediate Anesthetic Plan Anesthetic Plan: GA Disposition: Standard PACU
--- NOTE | 2024-10-25 07:36 | MHC.SHP ---
Pre-Procedural Eval Section A - 24 Hr Update-Section A only Date of Service: 10/25/24 The patient is an INPATIENT: Yes Changes since office visit: Yes Changes in Medication and Yes Patient answered all questions; No Cold of Flu in the past 2 weeks and No New Medical Problems The patient has been examined within 24 hours of the surgical procedure. The History & Physical has been completed within 30 days and I have reviewed it.: Yes Section B - Complete if H&P > 30 days Chief Complaint: post SA Allergies: Allergies Allergy/AdvReac Type Severity Reaction Status Date / Time No Known Allergies Allergy Verified 10/10/24 16:55 [No Known Allergies*] Plan I have reviewed the history and physical and performed a pertinent physical examination on my patient. No changes have occurred unless specified. Time Spent With Patient Time: Total time managing care of this patient today ____ minutes.
[2024-10-25] MEDS: amLODIPine Besylate 5 MG TABLET PO (09:33)
[2024-10-25] MEDS: Multivitamin TABLET 1 TAB PO (09:34)
[2024-10-25] MEDS: Metoprolol Succinate ER 50 MG TAB.ER.24H PO (09:34)
[2024-10-25] MEDS: Acetaminophen 325 MG TABLET 650 MG PO ×2 (12:09→19:44)
--- NOTE | 2024-10-25 16:59 | P.PNPSI_ITS ---
Subjective Subjective Date of Service: 10/25/24 Reason For Visit: post SA Subjective Notes: Conditional Voluntary Interim History: Pt had ECT #1 today. She reports headache and feeling somewhat tired and wanting to rest. She denies SI/HI. No VH/AH. had some difficulty sleeping due to roommate being loud. No behavioral concerns. Medication Compliance: Yes Review of Systems Review of Systems Pt denies any pain. No changes in vision. No SOB. NO diarrhea nor constipation. Constitutional: Denies chills, Denies fatigue, Denies fever(s) and Denies headache(s) Eyes: Denies change in vision Denies headache(s), Denies nasal congestion, Denies nasal discharge and Denies sore throat Cardiovascular: Denies chest pain, Denies rapid heart rate, Denies leg edema, Denies lightheadedness and Denies dyspnea Respiratory: Denies chest congestion, Denies cough, Denies dyspnea and Denies wheezing Gastrointestinal: Denies melena, Denies hematochezia, Denies constipation, Denies diarrhea, Denies nausea, Denies vomiting and Denies hematemesis Musculoskeletal: Denies myalgias, Denies muscle weakness, Denies numbness and Denies tingling Skin/Breast: Denies rash Denies confusion, Denies headache(s), Denies numbness and Denies tingling Psychiatric: Reports as per HPI and Denies confusion Endocrine: Denies fatigue Hematologic/Lymphatic: Denies easy bleeding and Denies easy bruising Allergic/Immunologic: Denies wheezing Mental Status Exam Mental Status Exam Narrative: Appearance: wearing hospital gown, decreased blinking, mask-like expression, in NAD. Behavior: cooperative Psychomotor: no agitation or retardation noted. no tremors. TP: linear TC: ashamed of OD Mood:depressed but improved Affect: constricted in range, but congruent SI: denies HI: denies VH/AH: none Delusions: none Insight/judgment: fair x 2. Patient states she feels ashamed about her overdose attempt glad that she is alive. Was able to take in information regarding ECT risks benefits alternatives reviewed with patient memory/cog: alert, oriented x 3. MOCA 23/30, ACL 4.2. deficits in visuo spatial and executive function. showing moderate cognitive impairment. Diagnostics Vital Signs (24Hr): Vital Signs - 24 hr 10/24/24 20:43 10/25/24 06:20 10/25/24 07:55 Temperature 98.1 F 98.5 F 99.8 F Pulse Rate 66 71 102 H Respiratory Rate 16 16 16 Blood Pressure 102/57 L 137/73 170/95 H Pulse Oximetry 96 93 94 Oxygen Delivery Method Room Air Room Air Nasal Cannula with ETCO2 Oxygen Flow Rate 2 10/25/24 08:00 10/25/24 08:05 10/25/24 08:10 Temperature Pulse Rate 102 H 116 H 115 H Respiratory Rate 16 16 16 Blood Pressure 156/84 H 164/92 H 155/95 H Pulse Oximetry 92 92 92 Oxygen Delivery Method Nasal Cannula with ETCO2 Nasal Cannula with ETCO2 Nasal Cannula with ETCO2 Oxygen Flow Rate 2 2 2 10/25/24 08:25 10/25/24 08:50 10/25/24 09:00 Temperature 98.2 F Pulse Rate 99 97 87 Respiratory Rate 16 16 18 Blood Pressure 118/74 120/71 125/70 Pulse Oximetry 92 92 95 Oxygen Delivery Method Room Air Room Air Room Air Oxygen Flow Rate BMI result Body Mass Index 23.8 Labs 10/16/24 16:35 Medications Medications Current Medications Acetaminophen (Acetaminophen 325 Mg Tablet) 650 mg PO Q6H PRN PRN Reason: Headache/Pain Mild Scale (1-3) Last Admin: 10/25/24 12:09 Dose: 650 mg Al Hydroxide/Mg Hydroxide (Magnesium Hydrox/Alum Hydrox 30 Ml Oral.Susp) 30 ml PO Q6H PRN PRN Reason: Heartburn/Nausea Alprazolam (Alprazolam 0.5 Mg Tablet) 0.5 mg PO DAILY PRN PRN Reason: anxiety/restlessness Last Admin: 10/24/24 16:04 Dose: 0.5 mg Amlodipine Besylate (Amlodipine Besylate 5 Mg Tablet) 5 mg PO DAILY [facility]; Protocol Last Admin: 10/25/24 09:33 Dose: 5 mg Hydroxyzine HCl (Hydroxyzine Hcl 25 Mg Tablet) 25 mg PO Q6H PRN PRN Reason: Anxiety Last Admin: 10/24/24 14:24 Dose: 25 mg Magnesium Hydroxide (Milk Of Magnesia 30 Ml Oral.Susp) 30 ml PO DAILY PRN PRN Reason: Constipation Metoprolol Succinate (Metoprolol Succinate Er 50 Mg Tab.Er.24h) 50 mg PO DAILY [facility]; Protocol Last Admin: 10/25/24 09:34 Dose: 50 mg Multivitamins/Vitamin C (Multivitamin Tablet) 1 tab PO DAILY HARESH Last Admin: 10/25/24 09:34 Dose: 1 tab Naloxone HCl (Naloxone Hcl 0.4 Mg/Ml Vial) 0.04 mg IVPUSH Q5M PRN PRN Reason: Excessive sedation or RR < 8 Olanzapine (Olanzapine 10 Mg Tablet) 20 mg PO BEDTIME HARESH Last Admin: 10/24/24 19:53 Dose: 20 mg Sertraline HCl (Sertraline Hcl 100 Mg Tablet) 200 mg PO BEDTIME HARESH Last Admin: 10/24/24 19:53 Dose: 200 mg Zolpidem Tartrate (Zolpidem Tartrate 5 Mg Tablet) 10 mg PO BEDTIME PRN PRN Reason: Insomnia Last Admin: 10/24/24 19:56 Dose: 10 mg Allergies Allergies Allergy/AdvReac Type Severity Reaction Status Date / Time No Known Allergies Allergy Verified 10/10/24 16:55 [No Known Allergies*] Assessment & Plan Assessment & Plan (1) MDD (major depressive disorder), recurrent severe, without psychosis: Status: Inactive Code(s): F33.2 - Major depressive disorder, recurrent severe without psychotic features (2) OCD (obsessive compulsive disorder): Status: Acute Code(s): F42.9 - Obsessive-compulsive disorder, unspecified Plan Mrs. Sparks is a 69 year-old woman with hx of OCD, MDD who was brought via EMS on 10/10 after found unresponsive by . Per EMS, her oxygen saturation on room air was 80%. In the ED, she was intubated and admitted to ICU for airway protection. She was extubated on 10/12. Her utox was positive for benzodiapines. Pt reports it was an intentional OD on xanax- took about 15mg of xanax. She denies it was a suicide attempt but rather attempt to go to sleep and decrease anxiety. Of note, pt had similar intentional OD on ativan back in 03/2024. She has had at least 7 trials of antidepressant in the past 2 years, including TMS. She has had now 2 intentional OD whether due to severe anxiety or with intent to end her life is unclear. We discussed that she has had partial response to medications and perhaps considering ECT. Left with call back number to OP psychiatrist, Dr. Isaac. Pt is in agreement to have either or [facility]NA manage medication in lock box. 10/18/24 Patient reports she is feeling much better. She said her new year's resolution is to not need another psychiatric hospitalization. Patient said that she had an Epiphany, realizing that so much of her anxiety is just due to low self-esteem which translates into depression. Patient said that on the unit now, she no longer has any anxiety and has had none for the past week. PLAN 1. Admit S1, cv, 15 minutes checks 2. dc wellbutrin as it may increase anxiety- which she has struggled with for a long time and it has been difficult to manage. 3. continue sertraline 200mg po qhs. continue xanax 0.5mg po BID prn 4. pending MOCA/ACL 5. May consider ECT- given tx resistant agitated depression 6. aftercare planning. 10/22/24 patient continues to look forward to ECt and seems aware of risk /benefit- 10/23 continue tx- ECT 10/24 ECT #1 Reason for continued inpatient stay Substantial Risk for: inability to function Time Spent With Patient Time: Total time managing care of this patient today ____ minutes.
[2024-10-25] MEDS: Zolpidem Tartrate 5 MG TABLET 10 MG PO (19:42)
[2024-10-25] MEDS: OLANZapine 10 MG TABLET 20 MG PO (19:43)
[2024-10-25] MEDS: Sertraline HCL 100 MG TABLET 200 MG PO (19:44)
--- NOTE | 2024-10-25 22:31 | HO.ECTPROC ---
ECT Procedure Note Diagnosis/Treatment Date of Service: 10/25/24 Diagnosis: Major Depressive Disorder Current Treatment Number: 1 Interval Clinical Notes: Pt gives informed consent, anxious pre tx much more relaxed post tx .tx rul Time: Total time managing care of this patient today ____ minutes. ECT Settings Device: THYMATRON DGx Electrode Placement: Right Unilateral Program/Pulse Width: 0.25 Energy Percent: 100 Seizure Duration By EEG (in seconds): 51 Medications Administration General Anesthetic: Etomidate (12) Muscle Relaxant: Succinylcholine (80) Airway Management Airway Management: Bag Mask Ventilation Treatment Recommendations No Changes Recommended: No change Pt Tolerated Procedure w/o Issue: Yes
[2024-10-26 07:57] VITALS: BP 130/67; PULSE 82; RESP 18; TEMP 36.9; O2SAT 95
[2024-10-26] MEDS: Metoprolol Succinate ER 50 MG TAB.ER.24H PO (08:01)
[2024-10-26] MEDS: Multivitamin TABLET 1 TAB PO (08:01)
[2024-10-26] MEDS: amLODIPine Besylate 5 MG TABLET PO (08:01)
--- NOTE | 2024-10-26 08:42 | P.PNPSI_ITS ---
Subjective Subjective Date of Service: 10/26/24 Reason For Visit: post SA Subjective Notes: Conditional Voluntary Interim History: Pt reports he slept through the night. She reports she feels unusually more anxious this morning, which she asks if it could be related to ECT- which not typically. This entry writer explained we will continue to monitor levels of anxiety. Her anxiety usually tends to worsen in the evenings. She denies SI/HI. She has attended groups. She is pleasant on approach. No behavioral concerns. Medication Compliance: Yes Side effects from medications: No Attending Groups: Yes Diagnostics Vital Signs (24Hr): Vital Signs - 24 hr 10/25/24 08:50 10/25/24 09:00 10/25/24 20:00 Temperature 98.2 F 98.5 F Pulse Rate 97 87 100 Respiratory Rate 16 18 Blood Pressure 120/71 125/70 154/82 H Pulse Oximetry 92 95 96 Oxygen Delivery Method Room Air Room Air Room Air 10/26/24 07:57 Temperature 98.4 F Pulse Rate 82 Respiratory Rate 18 Blood Pressure 130/67 Pulse Oximetry 95 Oxygen Delivery Method Room Air BMI result Body Mass Index 23.8 Labs 10/16/24 16:35 Medications Medications Current Medications Acetaminophen (Acetaminophen 325 Mg Tablet) 650 mg PO Q6H PRN PRN Reason: Headache/Pain Mild Scale (1-3) Last Admin: 10/25/24 19:44 Dose: 650 mg Al Hydroxide/Mg Hydroxide (Magnesium Hydrox/Alum Hydrox 30 Ml Oral.Susp) 30 ml PO Q6H PRN PRN Reason: Heartburn/Nausea Alprazolam (Alprazolam 0.5 Mg Tablet) 0.5 mg PO DAILY PRN PRN Reason: anxiety/restlessness Last Admin: 10/24/24 16:04 Dose: 0.5 mg Amlodipine Besylate (Amlodipine Besylate 5 Mg Tablet) 5 mg PO DAILY [facility]; Protocol Last Admin: 10/26/24 08:01 Dose: 5 mg Hydroxyzine HCl (Hydroxyzine Hcl 25 Mg Tablet) 25 mg PO Q6H PRN PRN Reason: Anxiety Last Admin: 10/24/24 14:24 Dose: 25 mg Magnesium Hydroxide (Milk Of Magnesia 30 Ml Oral.Susp) 30 ml PO DAILY PRN PRN Reason: Constipation Metoprolol Succinate (Metoprolol Succinate Er 50 Mg Tab.Er.24h) 50 mg PO DAILY [facility]; Protocol Last Admin: 10/26/24 08:01 Dose: 50 mg Multivitamins/Vitamin C (Multivitamin Tablet) 1 tab PO DAILY [facility] Last Admin: 10/26/24 08:01 Dose: 1 tab Naloxone HCl (Naloxone Hcl 0.4 Mg/Ml Vial) 0.04 mg IVPUSH Q5M PRN PRN Reason: Excessive sedation or RR < 8 Olanzapine (Olanzapine 10 Mg Tablet) 20 mg PO BEDTIME [facility] Last Admin: 10/25/24 19:43 Dose: 20 mg Sertraline HCl (Sertraline Hcl 100 Mg Tablet) 200 mg PO BEDTIME [facility] Last Admin: 10/25/24 19:44 Dose: 200 mg Zolpidem Tartrate (Zolpidem Tartrate 5 Mg Tablet) 10 mg PO BEDTIME PRN PRN Reason: Insomnia Last Admin: 10/25/24 19:42 Dose: 10 mg Allergies Allergies Allergy/AdvReac Type Severity Reaction Status Date / Time No Known Allergies Allergy Verified 10/10/24 16:55 [No Known Allergies*] Assessment & Plan Assessment & Plan (1) MDD (major depressive disorder), recurrent severe, without psychosis: Status: Inactive Code(s): F33.2 - Major depressive disorder, recurrent severe without psychotic features (2) OCD (obsessive compulsive disorder): Status: Acute Code(s): F42.9 - Obsessive-compulsive disorder, unspecified Plan Mrs. Sparks is a 69 year-old woman with hx of OCD, MDD who was brought via EMS on 10/10 after found unresponsive by . Per EMS, her oxygen saturation on room air was 80%. In the ED, she was intubated and admitted to ICU for airway protection. She was extubated on 10/12. Her utox was positive for benzodiapines. Pt reports it was an intentional OD on xanax- took about 15mg of xanax. She denies it was a suicide attempt but rather attempt to go to sleep and decrease anxiety. Of note, pt had similar intentional OD on ativan back in 03/2024. She has had at least 7 trials of antidepressant in the past 2 years, including TMS. She has had now 2 intentional OD whether due to severe anxiety or with intent to end her life is unclear. We discussed that she has had partial response to medications and perhaps considering ECT. Left with call back number to OP psychiatrist, Dr. Isaac. Pt is in agreement to have either or [facility] manage medication in lock box. 10/18/24 Patient reports she is feeling much better. She said her new year's resolution is to not need another psychiatric hospitalization. Patient said that she had an Epiphany, realizing that so much of her anxiety is just due to low self-esteem which translates into depression. Patient said that on the unit now, she no longer has any anxiety and has had none for the past week. PLAN 1. Admit S1, cv, 15 minutes checks 2. dc wellbutrin as it may increase anxiety- which she has struggled with for a long time and it has been difficult to manage. 3. continue sertraline 200mg po qhs. continue xanax 0.5mg po BID prn 4. pending MOCA/ACL 5. May consider ECT- given tx resistant agitated depression 6. aftercare planning. 10/22/24 patient continues to look forward to ECt and seems aware of risk /benefit- 10/23 continue tx- 10/24 continue tx. 10/25 ECT #1 mild headache and tireness. 10/26 reports some increase anxiety in AM. continue tx. plan for 2nd ECT tomorrow on 10/27 Patient educated on: diagnosis and medication risk/benefits Informed Consent: understands Reason for continued inpatient stay Substantial Risk for: inability to function Time Spent With Patient Time: Total time managing care of this patient today ____ minutes.
[2024-10-26] MEDS: Acetaminophen 325 MG TABLET 650 MG PO (14:24)
[2024-10-26 19:57] VITALS: BP 122/58; PULSE 72; RESP 16; TEMP 36.1; O2SAT 93
[2024-10-26] MEDS: Zolpidem Tartrate 5 MG TABLET 10 MG PO (19:58)
[2024-10-26] MEDS: Sertraline HCL 100 MG TABLET 200 MG PO (19:58)
[2024-10-26] MEDS: OLANZapine 10 MG TABLET 20 MG PO (19:58)
[2024-10-27] VITALS (11 sets, daily range): BP systolic 105–160; BP diastolic 59–83; PULSE 72–97; RESP 16–20; TEMP 36.1–37.2; O2SAT 89–96; BMI 23.8
--- NOTE | 2024-10-27 07:01 | MHC.SHP ---
Pre-Procedural Eval Section A - 24 Hr Update-Section A only Date of Service: 10/27/24 The patient is an INPATIENT: Yes Changes since office visit: No Cold of Flu in the past 2 weeks, No New Medical Problems, No Changes in Medication and No Patient answered all questions The patient has been examined within 24 hours of the surgical procedure. The History & Physical has been completed within 30 days and I have reviewed it.: Yes Section B - Complete if H&P > 30 days Chief Complaint: post SA Allergies: Allergies Allergy/AdvReac Type Severity Reaction Status Date / Time No Known Allergies Allergy Verified 10/10/24 16:55 [No Known Allergies*] Plan I have reviewed the history and physical and performed a pertinent physical examination on my patient. No changes have occurred unless specified. Time Spent With Patient Time: Total time managing care of this patient today ____ minutes.
--- NOTE | 2024-10-27 07:02 | HO.ANESPROP2 ---
[facility] Active Problems Active Problems: All Active Problems Overdose (Acute) S/P total knee arthroplasty (Acute) OCD (obsessive compulsive disorder) (Acute) Chronic insomnia (Acute) Status post total left knee replacement (Acute) Pre-op evaluation (Acute) Mild recurrent major depression (Acute) Skin lesion (Acute) Primary osteoarthritis of left knee (Acute) Sinusitis (Acute) Osteoporosis (Acute) Well woman exam (Acute) Status post total right knee replacement (Acute) Palpitations (Acute) Hypercalcemia (Acute) PAC (premature atrial contraction) (Acute) Preoperative examination (Acute) Primary osteoarthritis of right knee (Acute) Essential hypertension (Acute) Dyslipidemia (Acute) Past Medical History Medical History OCD (obsessive compulsive disorder) MDD (major depressive disorder), recurrent severe, without psychosis Major depressive disorder Arthritis Panic attacks Osteoporosis PTSD (post-traumatic stress disorder) ELIAN (generalized anxiety disorder) PAC (premature atrial contraction) History of anxiety Dyslipidemia Osteoarthritis (arthritis due to wear and tear of joints) Diverticulitis Essential hypertension Hyperkalemia Depression Functional capacity: independent ambulation Family History Family History Mother Dementia Father No problems noted. Family history of problems with anesthesia: No Surgical History Surgical History Hx of tonsillectomy Hx of tubal ligation History of total right knee replacement Hx of colonoscopy History of carpal tunnel release History of Problems with Anesthesia: No Social History Social History Household Members: Spouse Housing: House Are you a primary care director to a significant other at home: No Do you presently have visiting nurse or other home services: No Unable to assess alcohol history related to: Unable to respond Alcohol intake: never Comment: 1:1 sitter Patient Tobacco Use Status: Never used Tobacco Smoked in Last 30 Days: No e-Cigarette/Vaping Use: Never Used Patient Interested in Nicotine Replacement: No Patient Given Instructions on How to Stop Smoking: No Second Hand Smoke Exposure: No Use of substances other than those prescribed or required for medical reasons: No Substance Use Type: Marijuana Currently Displaying Signs/Symptoms of Drug Intoxication Withdrawal: No Any prior treatment program specific to substance use: No Have you been hit, kicked, punched, or otherwise hurt by someone within the past year? If so, by whom?: No Do you feel safe in your current relationship?: Yes Is there a partner from a previous relationship who is making you feel unsafe now?: No Are you made to feel afraid or neglected: No Spiritual Healthcare Practices: None Christian Healthcare Practices: None Advance Directives: Yes Advance Directives Information Provided: Yes Advance Directives on File: Yes Advance Directives Date on File: 10/11/24 Do you have thoughts of harming others: None Do you have a plan to hurt others: No Plan Recently lost weight without trying: Yes How much weight loss: 2-13 pounds Eating poorly because of decreased appetite: Yes Nutrition screen score: 4 Nutrition Risks: No Nutritional Risk Patient : No : No Poor oral hygiene: No service: No Current occupational status: retired Current occupation: Right Handed Sexual orientation: Straight/Heterosexual Cognitive needs: No Hearing needs: No Vision needs: No Meds Allergies Allergy/AdvReac Type Severity Reaction Status Date / Time No Known Allergies Allergy Verified 10/10/24 16:55 [No Known Allergies*] Active Medications: Current Medications Acetaminophen (Acetaminophen 325 Mg Tablet) 650 mg PO Q6H PRN PRN Reason: Headache/Pain Mild Scale (1-3) Last Admin: 10/26/24 14:24 Dose: 650 mg Al Hydroxide/Mg Hydroxide (Magnesium Hydrox/Alum Hydrox 30 Ml Oral.Susp) 30 ml PO Q6H PRN PRN Reason: Heartburn/Nausea Alprazolam (Alprazolam 0.5 Mg Tablet) 0.5 mg PO DAILY PRN PRN Reason: anxiety/restlessness Last Admin: 10/24/24 16:04 Dose: 0.5 mg Amlodipine Besylate (Amlodipine Besylate 5 Mg Tablet) 5 mg PO DAILY [facility]; Protocol Last Admin: 10/26/24 08:01 Dose: 5 mg Hydroxyzine HCl (Hydroxyzine Hcl 25 Mg Tablet) 25 mg PO Q6H PRN PRN Reason: Anxiety Last Admin: 10/24/24 14:24 Dose: 25 mg Lactated Ringer's (Lr) 1,000 mls @ 50 mls/hr IVCONT .Q20H [facility] Magnesium Hydroxide (Milk Of Magnesia 30 Ml Oral.Susp) 30 ml PO DAILY PRN PRN Reason: Constipation Metoprolol Succinate (Metoprolol Succinate Er 50 Mg Tab.Er.24h) 50 mg PO DAILY [facility]; Protocol Last Admin: 10/26/24 08:01 Dose: 50 mg Multivitamins/Vitamin C (Multivitamin Tablet) 1 tab PO DAILY [facility] Last Admin: 10/26/24 08:01 Dose: 1 tab Naloxone HCl (Naloxone Hcl 0.4 Mg/Ml Vial) 0.04 mg IVPUSH Q5M PRN PRN Reason: Excessive sedation or RR < 8 Olanzapine (Olanzapine 10 Mg Tablet) 20 mg PO BEDTIME [facility] Last Admin: 10/26/24 19:58 Dose: 20 mg Sertraline HCl (Sertraline Hcl 100 Mg Tablet) 200 mg PO BEDTIME [facility] Last Admin: 10/26/24 19:58 Dose: 200 mg Zolpidem Tartrate (Zolpidem Tartrate 5 Mg Tablet) 10 mg PO BEDTIME PRN PRN Reason: Insomnia Last Admin: 10/26/24 19:58 Dose: 10 mg Home Medications ?Medication ?Instructions ?Recorded ?Confirmed ?Last Taken ?Type multivitamin 1 tab PO DAILY 01/11/24 10/16/24 04/20/24 History alprazolam 0.5 mg tablet 0.5 mg PO BID PRN Anxiety 10/16/24 10/16/24 Unknown History amlodipine 5 mg tablet 5 mg PO DAILY 10/16/24 10/16/24 Unknown History bupropion HCl 75 mg tablet 75 mg PO DAILY 10/16/24 10/17/24 Unknown History metoprolol succinate 50 mg 50 mg PO DAILY 10/16/24 10/16/24 Unknown History tablet,extended release 24 hr olanzapine 20 mg tablet 20 mg PO BEDTIME 10/16/24 10/16/24 Unknown History pravastatin 20 mg tablet 20 mg PO DAILY 10/16/24 10/16/24 Unknown History sertraline 100 mg tablet 200 mg PO BEDTIME 10/16/24 10/17/24 Unknown History trazodone 100 mg tablet 100 mg PO BEDTIME 10/16/24 10/16/24 Unknown History hydroxyzine HCl 25 mg tablet 25 mg PO TID PRN Anxiety 10/17/24 10/17/24 Unknown History zolpidem 10 mg tablet 10 mg PO BEDTIME PRN Insomnia, If 10/17/24 10/17/24 Unknown History Olanzapine not working after 1 hour Exam Height,Weight and Vital Signs: Height 5 ft 7 in Weight 68.946 kg Last Vital Signs Temp 97.1 F 10/27/24 06:39 Pulse 76 10/27/24 06:39 Resp 16 10/27/24 06:39 BP 122/67 10/27/24 06:39 Pulse Ox 92 10/27/24 06:39 O2 Del Method Room Air 10/27/24 06:39 O2 Flow Rate 2 10/25/24 08:10 Pertinent Lab Results Pertinent Lab Results: Laboratory Tests 10/16/24 10/17/24 16:35 07:56 Sodium 140 Potassium 3.6 Chloride 107 Carbon Dioxide 26 Anion Gap 11 L BUN 26 H Creatinine 0.78 Estim Creat Clear Calc 64.3 Estimated GFR > 60 Random Glucose 90 Estimat Average Glucose 111 Hemoglobin A1c % 5.5 Calcium 8.6 Magnesium 2.1 Total Bilirubin 0.3 AST 19 ALT 31 Alkaline Phosphatase 69 Total Protein 7.1 Albumin 4.0 Triglycerides 166 H Cholesterol 195 LDL Cholesterol, Calc 132 H HDL Cholesterol 30 L Vitamin B12 505 Folate 14.4 TSH 2.22 Airway Mallampati Class: II (caps laterally) TM Dist: >3cm Neck ROM: Full Heart: rrr Lungs: cta Assessment and Plan Assessment Anesthesia Assessment: Anesthesia Plan Discussed and Chart Reviewed Final Anesthetic Review Family History of Problems with Anesthesia: No History of Problems with Anesthesia: No NPO: Yes ASA Class: III Final Preanesthetic Review: No Changes in Pt Med Stat, Meds/Allgs Chart Reviewed and Consent Obtained/Reviewed Patient Risk: Intermediate Procedure Risk: Intermediate Anesthetic Plan Anesthetic Plan: GA Disposition: Standard PACU
--- NOTE | 2024-10-27 07:20 | HO.ECTPROC ---
ECT Procedure Note Diagnosis/Treatment Date of Service: 10/27/24 Diagnosis: Major Depressive Disorder Previous ECT Date: 10/25/24 Current Treatment Number: 2 Treatment: Series Interval Clinical Notes: The patient reported dysphoria, she complained of mild headache and lightheadness after the first ECT. We are going to give her Toradol today. ECT done as per first procedure, no changes, no complications, woke up well. Time: Total time managing care of this patient today _30___ minutes. ECT Settings Device: THYMATRON DGx Electrode Placement: Right Unilateral Program/Pulse Width: 0.25 Energy Percent: 100 Seizure Duration By EEG (in seconds): 58 By Motor Observation (in seconds): 24 Medications Administration General Anesthetic: Etomidate (12) Muscle Relaxant: Succinylcholine (80) Ancillary Medications Analgesics: Torodol - Pre ECT Anti-emetics: Zofran - Pre ECT Airway Management Airway Management: Bag Mask Ventilation Treatment Recommendations No Changes Recommended: No change Pt Tolerated Procedure w/o Issue: Yes
[2024-10-27] MEDS: Multivitamin TABLET 1 TAB PO (08:47)
[2024-10-27] MEDS: amLODIPine Besylate 5 MG TABLET PO (08:47)
[2024-10-27] MEDS: Metoprolol Succinate ER 50 MG TAB.ER.24H PO (08:47)
--- NOTE | 2024-10-27 10:16 | HO.PSYCHPN ---
Subjective Subjective Date of Service: 10/27/24 Reason For Visit: post SA Subjective Notes: Conditional Voluntary Interim History: Pt slept through the night. She had ECT #2. she reports mild headache, tylenol seemed to helped. Less tired this time around. She reports less anxious mood. She denies SI/HI. appreciative of tx, and care. No behavioral concerns. plan for ECT on 10/30, and dc 10/31/2024. Review of Systems Review of Systems Pt denies any pain. No changes in vision. No SOB. NO diarrhea nor constipation. Constitutional: Denies chills, Denies fatigue, Denies fever(s) and Denies headache(s) Eyes: Denies change in vision Denies headache(s), Denies nasal congestion, Denies nasal discharge and Denies sore throat Cardiovascular: Denies chest pain, Denies rapid heart rate, Denies leg edema, Denies lightheadedness and Denies dyspnea Respiratory: Denies chest congestion, Denies cough, Denies dyspnea and Denies wheezing Gastrointestinal: Denies melena, Denies hematochezia, Denies constipation, Denies diarrhea, Denies nausea, Denies vomiting and Denies hematemesis Musculoskeletal: Denies myalgias, Denies muscle weakness, Denies numbness and Denies tingling Skin/Breast: Denies rash Denies confusion, Denies headache(s), Denies numbness and Denies tingling Psychiatric: Reports as per HPI and Denies confusion Endocrine: Denies fatigue Hematologic/Lymphatic: Denies easy bleeding and Denies easy bruising Allergic/Immunologic: Denies wheezing Mental Status Exam Mental Status Exam Narrative: Appearance: wearing hospital gown, decreased blinking, mask-like expression, in NAD. Behavior: cooperative Psychomotor: no agitation or retardation noted. no tremors. TP: linear TC: ashamed of OD Mood:depressed but improved Affect: constricted in range, but congruent SI: denies HI: denies VH/AH: none Delusions: none Insight/judgment: fair x 2. Patient states she feels ashamed about her overdose attempt glad that she is alive. Was able to take in information regarding ECT risks benefits alternatives reviewed with patient memory/cog: alert, oriented x 3. MOCA 23/30, ACL 4.2. deficits in visuo spatial and executive function. showing moderate cognitive impairment. Diagnostics Vital Signs (24Hr): Vital Signs - 24 hr 10/26/24 19:57 10/27/24 06:05 10/27/24 06:08 Temperature 97 F 97 F 97 F Pulse Rate 72 73 72 Respiratory Rate 16 16 16 Blood Pressure 122/58 L 153/80 H 153/80 H Pulse Oximetry 93 94 96 Oxygen Delivery Method Room Air Room Air Oxygen Flow Rate 10/27/24 06:39 10/27/24 07:26 10/27/24 07:30 Temperature 97.1 F 99 F Pulse Rate 76 97 97 Respiratory Rate 16 20 20 Blood Pressure 122/67 160/83 H 160/83 H Pulse Oximetry 92 94 90 L Oxygen Delivery Method Room Air Nasal Cannula with ETCO2 Nasal Cannula with ETCO2 Oxygen Flow Rate 2 2 10/27/24 07:35 10/27/24 07:40 10/27/24 07:55 Temperature Pulse Rate 86 87 82 Respiratory Rate 20 20 20 Blood Pressure 137/78 137/81 128/75 Pulse Oximetry 89 L 89 L 91 L Oxygen Delivery Method Nasal Cannula with ETCO2 Nasal Cannula with ETCO2 Nasal Cannula with ETCO2 Oxygen Flow Rate 2 2 2 10/27/24 08:10 10/27/24 08:45 Temperature 98.2 F Pulse Rate 90 94 Respiratory Rate 20 18 Blood Pressure 105/64 117/63 Pulse Oximetry 91 L 95 Oxygen Delivery Method Room Air Room Air Oxygen Flow Rate BMI result Body Mass Index 23.8 Labs 10/16/24 16:35 Medications Medications Current Medications Acetaminophen (Acetaminophen 325 Mg Tablet) 650 mg PO Q6H PRN PRN Reason: Headache/Pain Mild Scale (1-3) Last Admin: 10/26/24 14:24 Dose: 650 mg Al Hydroxide/Mg Hydroxide (Magnesium Hydrox/Alum Hydrox 30 Ml Oral.Susp) 30 ml PO Q6H PRN PRN Reason: Heartburn/Nausea Alprazolam (Alprazolam 0.5 Mg Tablet) 0.5 mg PO DAILY PRN PRN Reason: anxiety/restlessness Last Admin: 10/24/24 16:04 Dose: 0.5 mg Amlodipine Besylate (Amlodipine Besylate 5 Mg Tablet) 5 mg PO DAILY [facility]; Protocol Last Admin: 10/27/24 08:47 Dose: 5 mg Hydroxyzine HCl (Hydroxyzine Hcl 25 Mg Tablet) 25 mg PO Q6H PRN PRN Reason: Anxiety Last Admin: 10/24/24 14:24 Dose: 25 mg Magnesium Hydroxide (Milk Of Magnesia 30 Ml Oral.Susp) 30 ml PO DAILY PRN PRN Reason: Constipation Metoprolol Succinate (Metoprolol Succinate Er 50 Mg Tab.Er.24h) 50 mg PO DAILY [facility]; Protocol Last Admin: 10/27/24 08:47 Dose: 50 mg Multivitamins/Vitamin C (Multivitamin Tablet) 1 tab PO DAILY [facility] Last Admin: 10/27/24 08:47 Dose: 1 tab Olanzapine (Olanzapine 10 Mg Tablet) 20 mg PO BEDTIME [facility] Last Admin: 10/26/24 19:58 Dose: 20 mg Sertraline HCl (Sertraline Hcl 100 Mg Tablet) 200 mg PO BEDTIME [facility] Last Admin: 10/26/24 19:58 Dose: 200 mg Zolpidem Tartrate (Zolpidem Tartrate 5 Mg Tablet) 10 mg PO BEDTIME PRN PRN Reason: Insomnia Last Admin: 10/26/24 19:58 Dose: 10 mg Allergies Allergies Allergy/AdvReac Type Severity Reaction Status Date / Time No Known Allergies Allergy Verified 10/10/24 16:55 [No Known Allergies*] Assessment & Plan Assessment & Plan (1) MDD (major depressive disorder), recurrent severe, without psychosis: Status: Inactive Code(s): F33.2 - Major depressive disorder, recurrent severe without psychotic features (2) OCD (obsessive compulsive disorder): Status: Acute Code(s): F42.9 - Obsessive-compulsive disorder, unspecified Plan Mrs. Sparks is a 69 year-old woman with hx of OCD, MDD who was brought via EMS on 10/10 after found unresponsive by . Per EMS, her oxygen saturation on room air was 80%. In the ED, she was intubated and admitted to ICU for airway protection. She was extubated on 10/12. Her utox was positive for benzodiapines. Pt reports it was an intentional OD on xanax- took about 15mg of xanax. She denies it was a suicide attempt but rather attempt to go to sleep and decrease anxiety. Of note, pt had similar intentional OD on ativan back in 03/2024. She has had at least 7 trials of antidepressant in the past 2 years, including TMS. She has had now 2 intentional OD whether due to severe anxiety or with intent to end her life is unclear. We discussed that she has had partial response to medications and perhaps considering ECT. Left VM with call back number to OP psychiatrist, Dr. Isaac. Pt is in agreement to have either or [facility]NA manage medication in lock box. 10/18/24 Patient reports she is feeling much better. She said her new year's resolution is to not need another psychiatric hospitalization. Patient said that she had an Epiphany, realizing that so much of her anxiety is just due to low self-esteem which translates into depression. Patient said that on the unit now, she no longer has any anxiety and has had none for the past week. PLAN 1. Admit S1, cv, 15 minutes checks 2. dc wellbutrin as it may increase anxiety- which she has struggled with for a long time and it has been difficult to manage. 3. continue sertraline 200mg po qhs. continue xanax 0.5mg po BID prn 4. pending MOCA/ACL 5. May consider ECT- given tx resistant agitated depression 6. aftercare planning. 10/22/24 patient continues to look forward to ECt and seems aware of risk /benefit- 10/23 continue tx- 10/24 continue tx. 10/25 ECT #1 mild headache and tireness. 10/26 reports some increase anxiety in AM. continue tx. plan for 2nd ECT tomorrow on 10/27 10/27 ECT #2 continue tx. Reason for continued inpatient stay Substantial Risk for: inability to function Time Spent With Patient Time: Total time managing care of this patient today ____ minutes.
[2024-10-27] MEDS: guaiFENesin DM 600/30 1 TAB TAB.ER.12H PO ×2 (18:31→19:51)
[2024-10-27] MEDS: Zolpidem Tartrate 5 MG TABLET 10 MG PO (19:51)
[2024-10-27] MEDS: Sertraline HCL 100 MG TABLET 200 MG PO (19:51)
[2024-10-27] MEDS: OLANZapine 10 MG TABLET 20 MG PO (19:51)
[2024-10-28 08:00] VITALS: BP 111/57; PULSE 89; RESP 16; TEMP 36.7; O2SAT 92
[2024-10-28 09:22] VITALS: BP 111/57; PULSE 89
[2024-10-28] MEDS: Multivitamin TABLET 1 TAB PO (09:22)
[2024-10-28] MEDS: Metoprolol Succinate ER 50 MG TAB.ER.24H PO (09:22)
[2024-10-28] MEDS: guaiFENesin DM 600/30 1 TAB TAB.ER.12H PO ×2 (09:22→20:18)
[2024-10-28 09:28] VITALS: BP 111/57
--- NOTE | 2024-10-28 13:48 | HO.PSYCHPN ---
Subjective Subjective Date of Service: 10/28/24 Reason For Visit: post SA Subjective Notes: Conditional Voluntary Interim History: Pt slept through the night.She reports she is doing well. She reports noted less anxious in the afternoon but this was just one time. No SI/HI. Hopeful about ECT, next one on Wednesday then plan for dc on Wednesday.visible, goes to groups. Review of Systems Review of Systems Pt denies any pain. No changes in vision. No SOB. NO diarrhea nor constipation. Constitutional: Denies chills, Denies fatigue, Denies fever(s) and Denies headache(s) Eyes: Denies change in vision Denies headache(s), Denies nasal congestion, Denies nasal discharge and Denies sore throat Cardiovascular: Denies chest pain, Denies rapid heart rate, Denies leg edema, Denies lightheadedness and Denies dyspnea Respiratory: Denies chest congestion, Denies cough, Denies dyspnea and Denies wheezing Gastrointestinal: Denies melena, Denies hematochezia, Denies constipation, Denies diarrhea, Denies nausea, Denies vomiting and Denies hematemesis Musculoskeletal: Denies myalgias, Denies muscle weakness, Denies numbness and Denies tingling Skin/Breast: Denies rash Denies confusion, Denies headache(s), Denies numbness and Denies tingling Psychiatric: Reports as per HPI and Denies confusion Endocrine: Denies fatigue Hematologic/Lymphatic: Denies easy bleeding and Denies easy bruising Allergic/Immunologic: Denies wheezing Mental Status Exam Mental Status Exam Narrative: Appearance: wearing hospital gown, decreased blinking, mask-like expression, in NAD. Behavior: cooperative Psychomotor: no agitation or retardation noted. no tremors. TP: linear TC: ashamed of OD Mood:depressed but improved Affect: constricted in range, but congruent SI: denies HI: denies VH/AH: none Delusions: none Insight/judgment: fair x 2. Patient states she feels ashamed about her overdose attempt glad that she is alive. Was able to take in information regarding ECT risks benefits alternatives reviewed with patient memory/cog: alert, oriented x 3. MOCA 23/30, ACL 4.2. deficits in visuo spatial and executive function. showing moderate cognitive impairment. Diagnostics Vital Signs (24Hr): Vital Signs - 24 hr 10/27/24 19:48 10/28/24 08:00 10/28/24 09:22 Temperature 98.3 F 98.0 F Pulse Rate 88 89 89 Respiratory Rate 16 16 Blood Pressure 120/59 L 111/57 L 111/57 L Pulse Oximetry 94 92 Oxygen Delivery Method Room Air Room Air 10/28/24 09:28 Temperature Pulse Rate Respiratory Rate Blood Pressure 111/57 L Pulse Oximetry Oxygen Delivery Method BMI result Body Mass Index 23.8 Labs 10/16/24 16:35 Medications Medications Current Medications Acetaminophen (Acetaminophen 325 Mg Tablet) 650 mg PO Q6H PRN PRN Reason: Headache/Pain Mild Scale (1-3) Last Admin: 10/26/24 14:24 Dose: 650 mg Al Hydroxide/Mg Hydroxide (Magnesium Hydrox/Alum Hydrox 30 Ml Oral.Susp) 30 ml PO Q6H PRN PRN Reason: Heartburn/Nausea Alprazolam (Alprazolam 0.5 Mg Tablet) 0.5 mg PO DAILY PRN PRN Reason: anxiety/restlessness Last Admin: 10/24/24 16:04 Dose: 0.5 mg Amlodipine Besylate (Amlodipine Besylate 5 Mg Tablet) 5 mg PO DAILY HARESH; Protocol Last Admin: 10/28/24 09:28 Dose: Not Given Guaifenesin/Dextromethorphan (Guaifenesin Dm 600/30 1 Tab Tab.Er.12h) 1 tab PO BID HARESH Last Admin: 10/28/24 09:22 Dose: 1 tab Hydroxyzine HCl (Hydroxyzine Hcl 25 Mg Tablet) 25 mg PO Q6H PRN PRN Reason: Anxiety Last Admin: 10/24/24 14:24 Dose: 25 mg Magnesium Hydroxide (Milk Of Magnesia 30 Ml Oral.Susp) 30 ml PO DAILY PRN PRN Reason: Constipation Metoprolol Succinate (Metoprolol Succinate Er 50 Mg Tab.Er.24h) 50 mg PO DAILY HARESH; Protocol Last Admin: 10/28/24 09:22 Dose: 50 mg Multivitamins/Vitamin C (Multivitamin Tablet) 1 tab PO DAILY HARESH Last Admin: 10/28/24 09:22 Dose: 1 tab Olanzapine (Olanzapine 10 Mg Tablet) 20 mg PO BEDTIME HARESH Last Admin: 10/27/24 19:51 Dose: 20 mg Sertraline HCl (Sertraline Hcl 100 Mg Tablet) 200 mg PO BEDTIME HARESH Last Admin: 10/27/24 19:51 Dose: 200 mg Zolpidem Tartrate (Zolpidem Tartrate 5 Mg Tablet) 10 mg PO BEDTIME PRN PRN Reason: Insomnia Last Admin: 10/27/24 19:51 Dose: 10 mg Allergies Allergies Allergy/AdvReac Type Severity Reaction Status Date / Time No Known Allergies Allergy Verified 10/10/24 16:55 [No Known Allergies*] Assessment & Plan Assessment & Plan (1) MDD (major depressive disorder), recurrent severe, without psychosis: Status: Inactive Code(s): F33.2 - Major depressive disorder, recurrent severe without psychotic features (2) OCD (obsessive compulsive disorder): Status: Acute Code(s): F42.9 - Obsessive-compulsive disorder, unspecified Plan Mrs. Sparks is a 69 year-old woman with hx of OCD, MDD who was brought via EMS on 10/10 after found unresponsive by . Per EMS, her oxygen saturation on room air was 80%. In the ED, she was intubated and admitted to ICU for airway protection. She was extubated on 10/12. Her utox was positive for benzodiapines. Pt reports it was an intentional OD on xanax- took about 15mg of xanax. She denies it was a suicide attempt but rather attempt to go to sleep and decrease anxiety. Of note, pt had similar intentional OD on ativan back in 03/2024. She has had at least 7 trials of antidepressant in the past 2 years, including TMS. She has had now 2 intentional OD whether due to severe anxiety or with intent to end her life is unclear. We discussed that she has had partial response to medications and perhaps considering ECT. Left with call back number to OP psychiatrist, Dr. Isaac. Pt is in agreement to have either or [facility] manage medication in lock box. 10/18/24 Patient reports she is feeling much better. She said her new year's resolution is to not need another psychiatric hospitalization. Patient said that she had an Epiphany, realizing that so much of her anxiety is just due to low self-esteem which translates into depression. Patient said that on the unit now, she no longer has any anxiety and has had none for the past week. PLAN 1. Admit S1, cv, 15 minutes checks 2. dc wellbutrin as it may increase anxiety- which she has struggled with for a long time and it has been difficult to manage. 3. continue sertraline 200mg po qhs. continue xanax 0.5mg po BID prn 4. pending MOCA/ACL 5. May consider ECT- given tx resistant agitated depression 6. aftercare planning. 10/22/24 patient continues to look forward to ECt and seems aware of risk /benefit- 10/23 continue tx- 10/24 continue tx. 10/25 ECT #1 mild headache and tireness. 10/26 reports some increase anxiety in AM. continue tx. plan for 2nd ECT tomorrow on 10/27 10/27 ECT #2 continue tx. 10/28 continue tx. Reason for continued inpatient stay Substantial Risk for: inability to function Time Spent With Patient Time: Total time managing care of this patient today ____ minutes.
[2024-10-28 20:00] VITALS: BP 108/63; PULSE 108; RESP 18; TEMP 37.7; O2SAT 95
[2024-10-28] MEDS: OLANZapine 10 MG TABLET 20 MG PO (20:18)
[2024-10-28] MEDS: Acetaminophen 325 MG TABLET 650 MG PO (20:19)
[2024-10-28] MEDS: Sertraline HCL 100 MG TABLET 200 MG PO (20:19)
[2024-10-28] MEDS: Zolpidem Tartrate 5 MG TABLET 10 MG PO (20:20)
[2024-10-29 07:57] VITALS: BP 109/56; PULSE 76; RESP 18; TEMP 36.8; O2SAT 94
[2024-10-29] MEDS: guaiFENesin DM 600/30 1 TAB TAB.ER.12H PO ×2 (08:21→20:16)
[2024-10-29] MEDS: Acetaminophen 325 MG TABLET 650 MG PO (08:21)
[2024-10-29] MEDS: Multivitamin TABLET 1 TAB PO (08:21)
[2024-10-29] MEDS: Metoprolol Succinate ER 50 MG TAB.ER.24H PO (08:22)
[2024-10-29] MEDS: amLODIPine Besylate 5 MG TABLET PO (08:22)
--- NOTE | 2024-10-29 12:32 | HO.PSYCHPN ---
Subjective Subjective Date of Service: 10/29/24 Reason For Visit: post SA Interim History: Pt slept through the night.She reports she is doing well. She reports noted less anxious in the afternoon but this was just one time. No SI/HI. Hopeful about ECT, next one on Wednesday then plan for dc on Wednesday.visible, goes to groups. Review of Systems Review of Systems Pt denies any pain. No changes in vision. No SOB. NO diarrhea nor constipation. Constitutional: Denies chills, Denies fatigue, Denies fever(s) and Denies headache(s) Eyes: Denies change in vision Denies headache(s), Denies nasal congestion, Denies nasal discharge and Denies sore throat Cardiovascular: Denies chest pain, Denies rapid heart rate, Denies leg edema, Denies lightheadedness and Denies dyspnea Respiratory: Denies chest congestion, Denies cough, Denies dyspnea and Denies wheezing Gastrointestinal: Denies melena, Denies hematochezia, Denies constipation, Denies diarrhea, Denies nausea, Denies vomiting and Denies hematemesis Musculoskeletal: Denies myalgias, Denies muscle weakness, Denies numbness and Denies tingling Skin/Breast: Denies rash Denies confusion, Denies headache(s), Denies numbness and Denies tingling Psychiatric: Reports as per HPI and Denies confusion Endocrine: Denies fatigue Hematologic/Lymphatic: Denies easy bleeding and Denies easy bruising Allergic/Immunologic: Denies wheezing Mental Status Exam Mental Status Exam Narrative: Appearance: wearing hospital gown, decreased blinking, mask-like expression, in NAD. Behavior: cooperative Psychomotor: no agitation or retardation noted. no tremors. TP: linear TC: ashamed of OD Mood:depressed but improved Affect: constricted in range, but congruent SI: denies HI: denies VH/AH: none Delusions: none Insight/judgment: fair x 2. Patient states she feels ashamed about her overdose attempt glad that she is alive. Was able to take in information regarding ECT risks benefits alternatives reviewed with patient memory/cog: alert, oriented x 3. MOCA 23/30, ACL 4.2. deficits in visuo spatial and executive function. showing moderate cognitive impairment. Diagnostics Vital Signs (24Hr): Vital Signs - 24 hr 10/28/24 20:00 10/29/24 07:57 Temperature 99.9 F 98.2 F Pulse Rate 108 H 76 Respiratory Rate 18 18 Blood Pressure 108/63 109/56 L Pulse Oximetry 95 94 Oxygen Delivery Method Room Air Room Air BMI result Body Mass Index 23.8 Labs 10/16/24 16:35 Medications Medications Current Medications Acetaminophen (Acetaminophen 325 Mg Tablet) 650 mg PO Q6H PRN PRN Reason: Headache/Pain Mild Scale (1-3) Last Admin: 10/29/24 08:21 Dose: 650 mg Al Hydroxide/Mg Hydroxide (Magnesium Hydrox/Alum Hydrox 30 Ml Oral.Susp) 30 ml PO Q6H PRN PRN Reason: Heartburn/Nausea Alprazolam (Alprazolam 0.5 Mg Tablet) 0.5 mg PO DAILY PRN PRN Reason: anxiety/restlessness Last Admin: 10/24/24 16:04 Dose: 0.5 mg Amlodipine Besylate (Amlodipine Besylate 5 Mg Tablet) 5 mg PO DAILY HARESH; Protocol Last Admin: 10/29/24 08:22 Dose: 5 mg Guaifenesin/Dextromethorphan (Guaifenesin Dm 600/30 1 Tab Tab.Er.12h) 1 tab PO BID HARESH Last Admin: 10/29/24 08:21 Dose: 1 tab Hydroxyzine HCl (Hydroxyzine Hcl 25 Mg Tablet) 25 mg PO Q6H PRN PRN Reason: Anxiety Last Admin: 10/24/24 14:24 Dose: 25 mg Magnesium Hydroxide (Milk Of Magnesia 30 Ml Oral.Susp) 30 ml PO DAILY PRN PRN Reason: Constipation Metoprolol Succinate (Metoprolol Succinate Er 50 Mg Tab.Er.24h) 50 mg PO DAILY HARESH; Protocol Last Admin: 10/29/24 08:22 Dose: 50 mg Multivitamins/Vitamin C (Multivitamin Tablet) 1 tab PO DAILY HARESH Last Admin: 10/29/24 08:21 Dose: 1 tab Olanzapine (Olanzapine 10 Mg Tablet) 20 mg PO BEDTIME HARESH Last Admin: 10/28/24 20:18 Dose: 20 mg Sertraline HCl (Sertraline Hcl 100 Mg Tablet) 200 mg PO BEDTIME HARESH Last Admin: 10/28/24 20:19 Dose: 200 mg Zolpidem Tartrate (Zolpidem Tartrate 5 Mg Tablet) 10 mg PO BEDTIME PRN PRN Reason: Insomnia Last Admin: 10/28/24 20:20 Dose: 10 mg Allergies Allergies Allergy/AdvReac Type Severity Reaction Status Date / Time No Known Allergies Allergy Verified 10/10/24 16:55 [No Known Allergies*] Assessment & Plan Assessment & Plan (1) MDD (major depressive disorder), recurrent severe, without psychosis: Status: Inactive Code(s): F33.2 - Major depressive disorder, recurrent severe without psychotic features (2) OCD (obsessive compulsive disorder): Status: Acute Code(s): F42.9 - Obsessive-compulsive disorder, unspecified Plan Mrs. Sparks is a 69 year-old woman with hx of OCD, MDD who was brought via EMS on 10/10 after found unresponsive by . Per EMS, her oxygen saturation on room air was 80%. In the ED, she was intubated and admitted to ICU for airway protection. She was extubated on 10/12. Her utox was positive for benzodiapines. Pt reports it was an intentional OD on xanax- took about 15mg of xanax. She denies it was a suicide attempt but rather attempt to go to sleep and decrease anxiety. Of note, pt had similar intentional OD on ativan back in 03/2024. She has had at least 7 trials of antidepressant in the past 2 years, including TMS. She has had now 2 intentional OD whether due to severe anxiety or with intent to end her life is unclear. We discussed that she has had partial response to medications and perhaps considering ECT. Left with call back number to OP psychiatrist, Dr. Isaac. Pt is in agreement to have either or [facility] manage medication in lock box. 10/18/24 Patient reports she is feeling much better. She said her new year's resolution is to not need another psychiatric hospitalization. Patient said that she had an Epiphany, realizing that so much of her anxiety is just due to low self-esteem which translates into depression. Patient said that on the unit now, she no longer has any anxiety and has had none for the past week. PLAN 1. Admit S1, cv, 15 minutes checks 2. dc wellbutrin as it may increase anxiety- which she has struggled with for a long time and it has been difficult to manage. 3. continue sertraline 200mg po qhs. continue xanax 0.5mg po BID prn 4. pending MOCA/ACL 5. May consider ECT- given tx resistant agitated depression 6. aftercare planning. 10/22/24 patient continues to look forward to ECt and seems aware of risk /benefit- 10/23 continue tx- 10/24 continue tx. 10/25 ECT #1 mild headache and tireness. 10/26 reports some increase anxiety in AM. continue tx. plan for 2nd ECT tomorrow on 10/27 10/27 ECT #2 continue tx. 10/28 continue tx. 10/29 continue tx.ECT tomorrow. Reason for continued inpatient stay Substantial Risk for: inability to function Time Spent With Patient Time: Total time managing care of this patient today ____ minutes.
[2024-10-29 20:00] VITALS: BP 116/58; PULSE 82; RESP 18; TEMP 36.7; O2SAT 95
[2024-10-29] MEDS: Sertraline HCL 100 MG TABLET 200 MG PO (20:16)
[2024-10-29] MEDS: OLANZapine 10 MG TABLET 20 MG PO (20:17)
[2024-10-29] MEDS: Zolpidem Tartrate 5 MG TABLET 10 MG PO (20:24)
--- NOTE | 2024-10-29 23:41 | PC.NURSE ---
Delayed Entry: Patient due to have ECT tomorrow morning 10/30/24. Patient requested PRN kari with scheduled evening medication. 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
[2024-10-30] VITALS (16 sets, daily range): BP systolic 108–167; BP diastolic 66–87; PULSE 62–89; RESP 16–18; TEMP 36.1–36.8; O2SAT 91–95
[2024-10-30] MEDS: Lactated Ringers 1,000 ML 100 ML IVCONT (06:30)
--- NOTE | 2024-10-30 07:02 | MHC.SHP ---
Pre-Procedural Eval Section A - 24 Hr Update-Section A only Date of Service: 10/30/24 The patient is an INPATIENT: Yes Changes since office visit: No Cold of Flu in the past 2 weeks, No New Medical Problems, No Changes in Medication and No Patient answered all questions The patient has been examined within 24 hours of the surgical procedure. The History & Physical has been completed within 30 days and I have reviewed it.: Yes Section B - Complete if H&P > 30 days Chief Complaint: post SA Allergies: Allergies Allergy/AdvReac Type Severity Reaction Status Date / Time No Known Allergies Allergy Verified 10/10/24 16:55 [No Known Allergies*] Plan I have reviewed the history and physical and performed a pertinent physical examination on my patient. No changes have occurred unless specified. Time Spent With Patient Time: Total time managing care of this patient today ____ minutes.
--- NOTE | 2024-10-30 07:17 | HO.ECTPROC ---
ECT Procedure Note Diagnosis/Treatment Date of Service: 10/30/24 Diagnosis: Major Depressive Disorder Previous ECT Date: 10/27/24 Current Treatment Number: 3 Treatment: Series Interval Clinical Notes: The patient reported improvement of dysphoria, mild headache after the last ECT that improved with Tylenol. ECT done as usual, no complications, woke up well. Time: Total time managing care of this patient today ____ minutes. ECT Settings Device: THYMATRON DGx Electrode Placement: Right Unilateral Program/Pulse Width: 0.25 Energy Percent: 100 Seizure Duration By EEG (in seconds): 0 (EEG didn't record seizure but there was seizure activity for 42s) By Motor Observation (in seconds): 17 Medications Administration General Anesthetic: Etomidate (12) Muscle Relaxant: Succinylcholine (80) Airway Management Airway Management: Bag Mask Ventilation Treatment Recommendations No Changes Recommended: No change Pt Tolerated Procedure w/o Issue: Yes
[2024-10-30] MEDS: Metoprolol Succinate ER 50 MG TAB.ER.24H PO (09:05)
[2024-10-30] MEDS: Multivitamin TABLET 1 TAB PO (09:05)
[2024-10-30] MEDS: guaiFENesin DM 600/30 1 TAB TAB.ER.12H PO ×2 (09:06→20:08)
[2024-10-30] MEDS: amLODIPine Besylate 5 MG TABLET PO (09:06)
--- NOTE | 2024-10-30 09:12 | HO.ANESPROP2 ---
[facility] Active Problems Active Problems: All Active Problems Overdose (Acute) S/P total knee arthroplasty (Acute) OCD (obsessive compulsive disorder) (Acute) Chronic insomnia (Acute) Status post total left knee replacement (Acute) Pre-op evaluation (Acute) Mild recurrent major depression (Acute) Skin lesion (Acute) Primary osteoarthritis of left knee (Acute) Sinusitis (Acute) Osteoporosis (Acute) Well woman exam (Acute) Status post total right knee replacement (Acute) Palpitations (Acute) Hypercalcemia (Acute) PAC (premature atrial contraction) (Acute) Preoperative examination (Acute) Primary osteoarthritis of right knee (Acute) Essential hypertension (Acute) Dyslipidemia (Acute) Past Medical History Medical History Panic disorder OCD (obsessive compulsive disorder) MDD (major depressive disorder), recurrent severe, without psychosis Major depressive disorder Arthritis Panic attacks Osteoporosis PTSD (post-traumatic stress disorder) ELIAN (generalized anxiety disorder) PAC (premature atrial contraction) History of anxiety Dyslipidemia Osteoarthritis (arthritis due to wear and tear of joints) Diverticulitis Essential hypertension Hyperkalemia Depression Functional capacity: independent ambulation Patient : No Family History Family History Mother Dementia Father No problems noted. Family history of problems with anesthesia: No Surgical History Surgical History Hx of tonsillectomy Hx of tubal ligation History of total right knee replacement Hx of colonoscopy History of carpal tunnel release History of Problems with Anesthesia: No Social History Social History Household Members: Spouse Housing: House Are you a primary nurse healthcare manager to a significant other at home: No Do you presently have visiting nurse or other home services: No Unable to assess alcohol history related to: Unable to respond Alcohol intake: never Comment: 1:1 sitter Patient Tobacco Use Status: Never used Tobacco Smoked in Last 30 Days: No e-Cigarette/Vaping Use: Never Used Patient Interested in Nicotine Replacement: No Patient Given Instructions on How to Stop Smoking: No Second Hand Smoke Exposure: No Use of substances other than those prescribed or required for medical reasons: No Substance Use Type: Marijuana Currently Displaying Signs/Symptoms of Drug Intoxication Withdrawal: No Any prior treatment program specific to substance use: No Have you been hit, kicked, punched, or otherwise hurt by someone within the past year? If so, by whom?: No Do you feel safe in your current relationship?: Yes Is there a partner from a previous relationship who is making you feel unsafe now?: No Are you made to feel afraid or neglected: No Spiritual Healthcare Practices: None Religion Healthcare Practices: None Advance Directives: Yes Advance Directives Information Provided: Yes Advance Directives on File: Yes Advance Directives Date on File: 10/11/24 Do you have thoughts of harming others: None Do you have a plan to hurt others: No Plan Recently lost weight without trying: Yes How much weight loss: 2-13 pounds Eating poorly because of decreased appetite: Yes Nutrition screen score: 4 Nutrition Risks: No Nutritional Risk Patient : No : No Poor oral hygiene: No service: No Current occupational status: retired Current occupation: Right Handed Sexual orientation: Straight/Heterosexual Cognitive needs: No Hearing needs: No Vision needs: No Meds Allergies Allergy/AdvReac Type Severity Reaction Status Date / Time No Known Allergies Allergy Verified 10/10/24 16:55 [No Known Allergies*] Active Medications: Current Medications Acetaminophen (Acetaminophen 325 Mg Tablet) 650 mg PO Q6H PRN PRN Reason: Headache/Pain Mild Scale (1-3) Last Admin: 10/29/24 08:21 Dose: 650 mg Al Hydroxide/Mg Hydroxide (Magnesium Hydrox/Alum Hydrox 30 Ml Oral.Susp) 30 ml PO Q6H PRN PRN Reason: Heartburn/Nausea Alprazolam (Alprazolam 0.5 Mg Tablet) 0.5 mg PO DAILY PRN PRN Reason: anxiety/restlessness Last Admin: 10/24/24 16:04 Dose: 0.5 mg Amlodipine Besylate (Amlodipine Besylate 5 Mg Tablet) 5 mg PO DAILY HARESH; Protocol Last Admin: 10/30/24 09:06 Dose: 5 mg Guaifenesin/Dextromethorphan (Guaifenesin Dm 600/30 1 Tab Tab.Er.12h) 1 tab PO BID HARESH Last Admin: 10/30/24 09:06 Dose: 1 tab Hydroxyzine HCl (Hydroxyzine Hcl 25 Mg Tablet) 25 mg PO Q6H PRN PRN Reason: Anxiety Last Admin: 10/24/24 14:24 Dose: 25 mg Magnesium Hydroxide (Milk Of Magnesia 30 Ml Oral.Susp) 30 ml PO DAILY PRN PRN Reason: Constipation Metoprolol Succinate (Metoprolol Succinate Er 50 Mg Tab.Er.24h) 50 mg PO DAILY HARESH; Protocol Last Admin: 10/30/24 09:05 Dose: 50 mg Multivitamins/Vitamin C (Multivitamin Tablet) 1 tab PO DAILY HARESH Last Admin: 10/30/24 09:05 Dose: 1 tab Olanzapine (Olanzapine 10 Mg Tablet) 20 mg PO BEDTIME HARESH Last Admin: 10/29/24 20:17 Dose: 20 mg Sertraline HCl (Sertraline Hcl 100 Mg Tablet) 200 mg PO BEDTIME HARESH Last Admin: 10/29/24 20:16 Dose: 200 mg Zolpidem Tartrate (Zolpidem Tartrate 5 Mg Tablet) 10 mg PO BEDTIME PRN PRN Reason: Insomnia Last Admin: 10/29/24 20:24 Dose: 10 mg Home Medications ?Medication ?Instructions ?Recorded ?Confirmed ?Last Taken ?Type multivitamin 1 tab PO DAILY 01/11/24 10/16/24 04/20/24 History alprazolam 0.5 mg tablet 0.5 mg PO BID PRN Anxiety 10/16/24 10/16/24 Unknown History amlodipine 5 mg tablet 5 mg PO DAILY 10/16/24 10/16/24 Unknown History bupropion HCl 75 mg tablet 75 mg PO DAILY 10/16/24 10/17/24 Unknown History metoprolol succinate 50 mg 50 mg PO DAILY 10/16/24 10/16/24 Unknown History tablet,extended release 24 hr olanzapine 20 mg tablet 20 mg PO BEDTIME 10/16/24 10/16/24 Unknown History pravastatin 20 mg tablet 20 mg PO DAILY 10/16/24 10/16/24 Unknown History sertraline 100 mg tablet 200 mg PO BEDTIME 10/16/24 10/17/24 Unknown History trazodone 100 mg tablet 100 mg PO BEDTIME 10/16/24 10/16/24 Unknown History hydroxyzine HCl 25 mg tablet 25 mg PO TID PRN Anxiety 10/17/24 10/17/24 Unknown History zolpidem 10 mg tablet 10 mg PO BEDTIME PRN Insomnia, If 10/17/24 10/17/24 Unknown History Olanzapine not working after 1 hour Exam Height,Weight and Vital Signs: Height 5 ft 7 in Weight 68.946 kg Last Vital Signs Temp 97.6 F 10/30/24 08:27 Pulse 75 10/30/24 09:05 Resp 16 10/30/24 08:27 BP 122/72 10/30/24 09:06 Pulse Ox 93 10/30/24 08:27 O2 Del Method Room Air 10/30/24 08:27 O2 Flow Rate 2 10/30/24 08:03 Pertinent Lab Results Pertinent Lab Results: Laboratory Tests 10/16/24 10/17/24 16:35 07:56 Sodium 140 Potassium 3.6 Chloride 107 Carbon Dioxide 26 Anion Gap 11 L BUN 26 H Creatinine 0.78 Estim Creat Clear Calc 64.3 Estimated GFR > 60 Random Glucose 90 Estimat Average Glucose 111 Hemoglobin A1c % 5.5 Calcium 8.6 Magnesium 2.1 Total Bilirubin 0.3 AST 19 ALT 31 Alkaline Phosphatase 69 Total Protein 7.1 Albumin 4.0 Triglycerides 166 H Cholesterol 195 LDL Cholesterol, Calc 132 H HDL Cholesterol 30 L Vitamin B12 505 Folate 14.4 TSH 2.22 Airway Mallampati Class: II TM Dist: >3cm Neck ROM: Full Heart: RRR Lungs: CTA Assessment and Plan Assessment Anesthesia Assessment: Anesthesia Plan Discussed and Chart Reviewed Final Anesthetic Review Family History of Problems with Anesthesia: No History of Problems with Anesthesia: No NPO: Yes ASA Class: III Final Preanesthetic Review: Meds/Allgs Chart Reviewed, Consent Obtained/Reviewed and Anes Risks/Benef Reviewed Patient Risk: Low Procedure Risk: Low Anesthetic Plan Anesthetic Plan: GA Disposition: Standard PACU
--- NOTE | 2024-10-30 09:20 | PC.NURSE ---
Back from ECT at 8:50 am, VS: T 97.6, P75, BP 122/72, O2sat 95%. Patient denies headache/ dizziness/ nausea. Stating she is feeling good. Given breakfast, consumed 100%. Will continue to monitor.
--- NOTE | 2024-10-30 12:16 | HO.PSYCHPN ---
Subjective Subjective Date of Service: 10/30/24 Reason For Visit: post SA Subjective Notes: Conditional Voluntary Interim History: The nursing staff reported the patient had been less anxious quiet. Today she had ECT with no complications. On interview the patient reports that she is feeling better less dysphoric. Mental Status Exam Mental Status Exam Patient Appearance: Appropriate Patient Orientation: Person and Situation Level of Consciousness: Awake and Appropriate Patient Behavior: Guarded and Passive Mood Description: Withdrawn Affect Description: Constricted Patient Cognition Impaired: Yes Ability to Follow Directions: Good Speech Pattern: Clear Hallucinations: None Delusions: Not Present Thought Process: Distracted Thought Content: positive for Circumstantial Judgement: Fair Diagnostics Vital Signs (24Hr): Vital Signs - 24 hr 10/29/24 20:00 10/30/24 05:30 10/30/24 06:27 Temperature 98.0 F 98.2 F 98.1 F Pulse Rate 82 62 83 Respiratory Rate 18 16 16 Blood Pressure 116/58 L 123/69 126/73 Pulse Oximetry 95 94 92 Oxygen Delivery Method Room Air Room Air Oxygen Flow Rate 10/30/24 07:24 10/30/24 07:29 10/30/24 07:34 Temperature 97 F Pulse Rate 77 81 89 Respiratory Rate 16 16 16 Blood Pressure 167/87 H 156/86 H 154/87 H Pulse Oximetry 94 93 92 Oxygen Delivery Method Nasal Cannula with ETCO2 Nasal Cannula with ETCO2 Nasal Cannula with ETCO2 Oxygen Flow Rate 3 3 3 10/30/24 07:39 10/30/24 07:45 10/30/24 07:50 Temperature Pulse Rate 85 82 84 Respiratory Rate 16 16 16 Blood Pressure 144/82 H 138/78 136/73 Pulse Oximetry 92 92 92 Oxygen Delivery Method Nasal Cannula with ETCO2 Nasal Cannula with ETCO2 Nasal Cannula with ETCO2 Oxygen Flow Rate 3 3 10/30/24 08:03 10/30/24 08:16 10/30/24 08:27 Temperature 97.6 F Pulse Rate 89 89 84 Respiratory Rate 16 16 16 Blood Pressure 137/71 122/71 114/66 Pulse Oximetry 91 L 91 L 93 Oxygen Delivery Method Nasal Cannula with ETCO2 Room Air Room Air Oxygen Flow Rate 2 10/30/24 08:55 10/30/24 09:05 10/30/24 09:06 Temperature 97.6 F Pulse Rate 75 75 Respiratory Rate 18 Blood Pressure 122/72 122/72 122/72 Pulse Oximetry 95 Oxygen Delivery Method Room Air Oxygen Flow Rate 10/30/24 09:13 Temperature Pulse Rate Respiratory Rate Blood Pressure Pulse Oximetry 95 Oxygen Delivery Method Room Air Oxygen Flow Rate BMI result Body Mass Index 23.8 Labs 10/16/24 16:35 Medications Medications Current Medications Acetaminophen (Acetaminophen 325 Mg Tablet) 650 mg PO Q6H PRN PRN Reason: Headache/Pain Mild Scale (1-3) Last Admin: 10/29/24 08:21 Dose: 650 mg Al Hydroxide/Mg Hydroxide (Magnesium Hydrox/Alum Hydrox 30 Ml Oral.Susp) 30 ml PO Q6H PRN PRN Reason: Heartburn/Nausea Alprazolam (Alprazolam 0.5 Mg Tablet) 0.5 mg PO DAILY PRN PRN Reason: anxiety/restlessness Last Admin: 10/24/24 16:04 Dose: 0.5 mg Amlodipine Besylate (Amlodipine Besylate 5 Mg Tablet) 5 mg PO DAILY HARESH; Protocol Last Admin: 10/30/24 09:06 Dose: 5 mg Guaifenesin/Dextromethorphan (Guaifenesin Dm 600/30 1 Tab Tab.Er.12h) 1 tab PO BID HARESH Last Admin: 10/30/24 09:06 Dose: 1 tab Hydroxyzine HCl (Hydroxyzine Hcl 25 Mg Tablet) 25 mg PO Q6H PRN PRN Reason: Anxiety Last Admin: 10/24/24 14:24 Dose: 25 mg Magnesium Hydroxide (Milk Of Magnesia 30 Ml Oral.Susp) 30 ml PO DAILY PRN PRN Reason: Constipation Metoprolol Succinate (Metoprolol Succinate Er 50 Mg Tab.Er.24h) 50 mg PO DAILY HARESH; Protocol Last Admin: 10/30/24 09:05 Dose: 50 mg Multivitamins/Vitamin C (Multivitamin Tablet) 1 tab PO DAILY HARESH Last Admin: 10/30/24 09:05 Dose: 1 tab Naloxone HCl (Naloxone Hcl 0.4 Mg/Ml Vial) 0.04 mg IVPUSH Q5M PRN PRN Reason: Excessive sedation or RR < 8 Olanzapine (Olanzapine 10 Mg Tablet) 20 mg PO BEDTIME HARESH Last Admin: 10/29/24 20:17 Dose: 20 mg Sertraline HCl (Sertraline Hcl 100 Mg Tablet) 200 mg PO BEDTIME HARESH Last Admin: 10/29/24 20:16 Dose: 200 mg Zolpidem Tartrate (Zolpidem Tartrate 5 Mg Tablet) 10 mg PO BEDTIME PRN PRN Reason: Insomnia Last Admin: 10/29/24 20:24 Dose: 10 mg Allergies Allergies Allergy/AdvReac Type Severity Reaction Status Date / Time No Known Allergies Allergy Verified 10/10/24 16:55 [No Known Allergies*] Assessment & Plan Assessment & Plan (1) MDD (major depressive disorder), recurrent severe, without psychosis: Status: Inactive Code(s): F33.2 - Major depressive disorder, recurrent severe without psychotic features (2) OCD (obsessive compulsive disorder): Status: Acute Code(s): F42.9 - Obsessive-compulsive disorder, unspecified Plan Mrs. Sparks is a 69 year-old woman with hx of OCD, MDD who was brought via EMS on 10/10 after found unresponsive by . Per EMS, her oxygen saturation on room air was 80%. In the ED, she was intubated and admitted to ICU for airway protection. She was extubated on 10/12. Her utox was positive for benzodiapines. Pt reports it was an intentional OD on xanax- took about 15mg of xanax. She denies it was a suicide attempt but rather attempt to go to sleep and decrease anxiety. Of note, pt had similar intentional OD on ativan back in 03/2024. She has had at least 7 trials of antidepressant in the past 2 years, including TMS. She has had now 2 intentional OD whether due to severe anxiety or with intent to end her life is unclear. We discussed that she has had partial response to medications and perhaps considering ECT. Left with call back number to OP psychiatrist, Dr. Isaac. Pt is in agreement to have either or [facility] manage medication in lock box. 10/18/24 Patient reports she is feeling much better. She said her new year's resolution is to not need another psychiatric hospitalization. Patient said that she had an Epiphany, realizing that so much of her anxiety is just due to low self-esteem which translates into depression. Patient said that on the unit now, she no longer has any anxiety and has had none for the past week. PLAN 1. Admit S1, cv, 15 minutes checks 2. dc wellbutrin as it may increase anxiety- which she has struggled with for a long time and it has been difficult to manage. 3. continue sertraline 200mg po qhs. continue xanax 0.5mg po BID prn 4. pending MOCA/ACL 5. May consider ECT- given tx resistant agitated depression. She started ECT and on October 30 she improved remarkably. 6. aftercare planning. Reason for continued inpatient stay Substantial Risk for: inability to function, rapid decompensation and med/psych decompensation Time Spent With Patient Time: Total time managing care of this patient today __20__ minutes.
[2024-10-30] MEDS: Zolpidem Tartrate 5 MG TABLET 10 MG PO (20:08)
[2024-10-30] MEDS: Sertraline HCL 100 MG TABLET 200 MG PO (20:08)
[2024-10-30] MEDS: OLANZapine 10 MG TABLET 20 MG PO (20:08)
[2024-10-31 08:00] VITALS: BP 128/63; PULSE 67; RESP 18; TEMP 36.6; O2SAT 93
[2024-10-31] MEDS: Multivitamin TABLET 1 TAB PO (08:23)
[2024-10-31 08:24] VITALS: BP 128/63; PULSE 67
[2024-10-31] MEDS: amLODIPine Besylate 5 MG TABLET PO (08:24)
[2024-10-31] MEDS: Metoprolol Succinate ER 50 MG TAB.ER.24H PO (08:24)
[2024-10-31] MEDS: guaiFENesin DM 600/30 1 TAB TAB.ER.12H PO ×2 (08:24→20:20)
--- NOTE | 2024-10-31 09:39 | HO.PSYCHPN ---
Subjective Subjective Date of Service: 10/31/24 Reason For Visit: post SA Subjective Notes: Conditional Voluntary Interim History: We had family meeting- discussed treatment, last ECT tomorrow. She reports feeling less anxious. She denies SI. She is sleeping well with ambien. We discussed with safety at home and he agrees to manage medications, not in a weekly pill box, but daily giving her medications. She has been visible on the unit, social with peers. NO behavioral concerns. Diagnostics Vital Signs (24Hr): Vital Signs - 24 hr 10/30/24 20:00 10/31/24 08:24 10/31/24 08:24 Temperature 97.5 F Pulse Rate 75 67 Respiratory Rate 18 Blood Pressure 108/72 128/63 128/63 Pulse Oximetry 94 Oxygen Delivery Method Room Air BMI result Body Mass Index 23.8 Labs 10/16/24 16:35 Medications Medications Current Medications Acetaminophen (Acetaminophen 325 Mg Tablet) 650 mg PO Q6H PRN PRN Reason: Headache/Pain Mild Scale (1-3) Last Admin: 10/29/24 08:21 Dose: 650 mg Al Hydroxide/Mg Hydroxide (Magnesium Hydrox/Alum Hydrox 30 Ml Oral.Susp) 30 ml PO Q6H PRN PRN Reason: Heartburn/Nausea Alprazolam (Alprazolam 0.5 Mg Tablet) 0.5 mg PO DAILY PRN PRN Reason: anxiety/restlessness Last Admin: 10/24/24 16:04 Dose: 0.5 mg Amlodipine Besylate (Amlodipine Besylate 5 Mg Tablet) 5 mg PO DAILY HARESH; Protocol Last Admin: 10/31/24 08:24 Dose: 5 mg Guaifenesin/Dextromethorphan (Guaifenesin Dm 600/30 1 Tab Tab.Er.12h) 1 tab PO BID HARESH Last Admin: 10/31/24 08:24 Dose: 1 tab Hydroxyzine HCl (Hydroxyzine Hcl 25 Mg Tablet) 25 mg PO Q6H PRN PRN Reason: Anxiety Last Admin: 10/24/24 14:24 Dose: 25 mg Magnesium Hydroxide (Milk Of Magnesia 30 Ml Oral.Susp) 30 ml PO DAILY PRN PRN Reason: Constipation Metoprolol Succinate (Metoprolol Succinate Er 50 Mg Tab.Er.24h) 50 mg PO DAILY HARESH; Protocol Last Admin: 10/31/24 08:24 Dose: 50 mg Multivitamins/Vitamin C (Multivitamin Tablet) 1 tab PO DAILY [facility] Last Admin: 10/31/24 08:23 Dose: 1 tab Naloxone HCl (Naloxone Hcl 0.4 Mg/Ml Vial) 0.04 mg IVPUSH Q5M PRN PRN Reason: Excessive sedation or RR < 8 Olanzapine (Olanzapine 10 Mg Tablet) 20 mg PO BEDTIME HARESH Last Admin: 10/30/24 20:08 Dose: 20 mg Sertraline HCl (Sertraline Hcl 100 Mg Tablet) 200 mg PO BEDTIME HARESH Last Admin: 10/30/24 20:08 Dose: 200 mg Zolpidem Tartrate (Zolpidem Tartrate 5 Mg Tablet) 10 mg PO BEDTIME PRN PRN Reason: Insomnia Last Admin: 10/30/24 20:08 Dose: 10 mg Allergies Allergies Allergy/AdvReac Type Severity Reaction Status Date / Time No Known Allergies Allergy Verified 10/10/24 16:55 [No Known Allergies*] Assessment & Plan Assessment & Plan (1) MDD (major depressive disorder), recurrent severe, without psychosis: Status: Inactive Code(s): F33.2 - Major depressive disorder, recurrent severe without psychotic features (2) OCD (obsessive compulsive disorder): Status: Acute Code(s): F42.9 - Obsessive-compulsive disorder, unspecified Plan Mrs. Sparks is a 69 year-old woman with hx of OCD, MDD who was brought via EMS on 10/10 after found unresponsive by . Per EMS, her oxygen saturation on room air was 80%. In the ED, she was intubated and admitted to ICU for airway protection. She was extubated on 10/12. Her utox was positive for benzodiapines. Pt reports it was an intentional OD on xanax- took about 15mg of xanax. She denies it was a suicide attempt but rather attempt to go to sleep and decrease anxiety. Of note, pt had similar intentional OD on ativan back in 03/2024. She has had at least 7 trials of antidepressant in the past 2 years, including TMS. She has had now 2 intentional OD whether due to severe anxiety or with intent to end her life is unclear. We discussed that she has had partial response to medications and perhaps considering ECT. Left with call back number to OP psychiatrist, Dr. Isaac. Pt is in agreement to have either or [facility]NA manage medication in lock box. 10/18/24 Patient reports she is feeling much better. She said her new year's resolution is to not need another psychiatric hospitalization. Patient said that she had an Epiphany, realizing that so much of her anxiety is just due to low self-esteem which translates into depression. Patient said that on the unit now, she no longer has any anxiety and has had none for the past week. PLAN 1. Admit S1, cv, 15 minutes checks 2. continue tx. dc on 11/01/2024 Reason for continued inpatient stay Substantial Risk for: inability to function Time Spent With Patient Time: Total time managing care of this patient today ____ minutes.
[2024-10-31 20:00] VITALS: BP 138/74; PULSE 88; RESP 16; TEMP 36.4; O2SAT 92
[2024-10-31] MEDS: OLANZapine 10 MG TABLET 20 MG PO (20:19)
[2024-10-31] MEDS: Sertraline HCL 100 MG TABLET 200 MG PO (20:20)
[2024-10-31] MEDS: Zolpidem Tartrate 5 MG TABLET 10 MG PO (20:20)
[2024-11-01] VITALS (7 sets, daily range): BP systolic 110–153; BP diastolic 62–84; PULSE 66–91; RESP 16–22; TEMP 36–37.2; O2SAT 93–97
--- NOTE | 2024-11-01 12:28 | MHC.SHP ---
Pre-Procedural Eval Section A - 24 Hr Update-Section A only Date of Service: 11/01/24 The patient is an INPATIENT: Yes Changes since office visit: No Cold of Flu in the past 2 weeks, No New Medical Problems, No Changes in Medication and No Patient answered all questions The patient has been examined within 24 hours of the surgical procedure. The History & Physical has been completed within 30 days and I have reviewed it.: Yes Section B - Complete if H&P > 30 days Chief Complaint: post SA Allergies: Allergies Allergy/AdvReac Type Severity Reaction Status Date / Time No Known Allergies Allergy Verified 10/10/24 16:55 [No Known Allergies*] Plan I have reviewed the history and physical and performed a pertinent physical examination on my patient. No changes have occurred unless specified. Time Spent With Patient Time: Total time managing care of this patient today ____ minutes.
--- NOTE | 2024-11-01 12:52 | HO.ECTPROC ---
ECT Procedure Note Diagnosis/Treatment Date of Service: 11/01/24 Previous ECT Date: 10/30/24 Current Treatment Number: 4 Treatment: Series Interval Clinical Notes: The patient reported improvement of depression, her affect is full and appropriated, no side effects with previous ECT. She is going to be dishcarged today home after this procedure. ECT done as usual, no complications, woke up well. Time: Total time managing care of this patient today _30___ minutes. ECT Settings Device: THYMATRON DGx Electrode Placement: Right Unilateral Program/Pulse Width: 0.25 Energy Percent: 100 Seizure Duration By EEG (in seconds): 48 By Motor Observation (in seconds): 24 Medications Administration General Anesthetic: Etomidate (12) Muscle Relaxant: Succinylcholine (80) Airway Management Airway Management: Bag Mask Ventilation Treatment Recommendations No Changes Recommended: No change
--- NOTE | 2024-11-01 14:13 | P.CONAN_ITS ---
[facility] Active Problems Active Problems: All Active Problems Overdose (Acute) S/P total knee arthroplasty (Acute) OCD (obsessive compulsive disorder) (Acute) Chronic insomnia (Acute) Status post total left knee replacement (Acute) Pre-op evaluation (Acute) Mild recurrent major depression (Acute) Skin lesion (Acute) Primary osteoarthritis of left knee (Acute) Sinusitis (Acute) Osteoporosis (Acute) Well woman exam (Acute) Status post total right knee replacement (Acute) Palpitations (Acute) Hypercalcemia (Acute) PAC (premature atrial contraction) (Acute) Preoperative examination (Acute) Primary osteoarthritis of right knee (Acute) Essential hypertension (Acute) Dyslipidemia (Acute) Past Medical History Medical History Panic disorder OCD (obsessive compulsive disorder) MDD (major depressive disorder), recurrent severe, without psychosis Major depressive disorder Arthritis Panic attacks Osteoporosis PTSD (post-traumatic stress disorder) ELIAN (generalized anxiety disorder) PAC (premature atrial contraction) History of anxiety Dyslipidemia Osteoarthritis (arthritis due to wear and tear of joints) Diverticulitis Essential hypertension Hyperkalemia Depression Functional capacity: independent ambulation Patient : No Family History Family History Mother Dementia Father No problems noted. Family history of problems with anesthesia: No Surgical History Surgical History Hx of tonsillectomy Hx of tubal ligation History of total right knee replacement Hx of colonoscopy History of carpal tunnel release History of Problems with Anesthesia: No Social History Social History Household Members: Spouse Housing: House Are you a primary ambulatory care coordinator to a significant other at home: No Do you presently have visiting nurse or other home services: No Unable to assess alcohol history related to: Unable to respond Alcohol intake: never Comment: 1:1 sitter Patient Tobacco Use Status: Never used Tobacco e-Cigarette/Vaping Use: Never Used Second Hand Smoke Exposure: No Substance Use Type: Marijuana Advance Directives Date on File: 10/11/24 service: No Current occupational status: retired Current occupation: Right Handed Sexual orientation: Straight/Heterosexual Cognitive needs: No Hearing needs: No Vision needs: No Meds Allergies Allergy/AdvReac Type Severity Reaction Status Date / Time No Known Allergies Allergy Verified 10/10/24 16:55 [No Known Allergies*] Active Medications: Current Medications Acetaminophen (Acetaminophen 325 Mg Tablet) 650 mg PO Q6H PRN PRN Reason: Headache/Pain Mild Scale (1-3) Last Admin: 10/29/24 08:21 Dose: 650 mg Al Hydroxide/Mg Hydroxide (Magnesium Hydrox/Alum Hydrox 30 Ml Oral.Susp) 30 ml PO Q6H PRN PRN Reason: Heartburn/Nausea Alprazolam (Alprazolam 0.5 Mg Tablet) 0.5 mg PO DAILY PRN PRN Reason: anxiety/restlessness Last Admin: 10/24/24 16:04 Dose: 0.5 mg Amlodipine Besylate (Amlodipine Besylate 5 Mg Tablet) 5 mg PO DAILY [facility]; Protocol Last Admin: 11/01/24 09:46 Dose: Not Given Guaifenesin/Dextromethorphan (Guaifenesin Dm 600/30 1 Tab Tab.Er.12h) 1 tab PO BID HARESH Last Admin: 11/01/24 09:46 Dose: Not Given Hydroxyzine HCl (Hydroxyzine Hcl 25 Mg Tablet) 25 mg PO Q6H PRN PRN Reason: Anxiety Last Admin: 10/24/24 14:24 Dose: 25 mg Magnesium Hydroxide (Milk Of Magnesia 30 Ml Oral.Susp) 30 ml PO DAILY PRN PRN Reason: Constipation Metoprolol Succinate (Metoprolol Succinate Er 50 Mg Tab.Er.24h) 50 mg PO DAILY HARESH; Protocol Last Admin: 11/01/24 09:46 Dose: Not Given Multivitamins/Vitamin C (Multivitamin Tablet) 1 tab PO DAILY HARESH Last Admin: 11/01/24 09:46 Dose: Not Given Olanzapine (Olanzapine 10 Mg Tablet) 20 mg PO BEDTIME HARESH Last Admin: 10/31/24 20:19 Dose: 20 mg Sertraline HCl (Sertraline Hcl 100 Mg Tablet) 200 mg PO BEDTIME HARESH Last Admin: 10/31/24 20:20 Dose: 200 mg Zolpidem Tartrate (Zolpidem Tartrate 5 Mg Tablet) 10 mg PO BEDTIME PRN PRN Reason: Insomnia Last Admin: 10/31/24 20:20 Dose: 10 mg Home Medications ?Medication ?Instructions ?Recorded ?Confirmed ?Last Taken ?Type multivitamin 1 tab PO DAILY 01/11/24 10/16/24 04/20/24 History alprazolam 0.5 mg tablet 0.5 mg PO BID PRN Anxiety 10/16/24 10/16/24 Unknown History amlodipine 5 mg tablet 5 mg PO DAILY 10/16/24 10/16/24 Unknown History bupropion HCl 75 mg tablet 75 mg PO DAILY 10/16/24 10/17/24 Unknown History metoprolol succinate 50 mg 50 mg PO DAILY 10/16/24 10/16/24 Unknown History tablet,extended release 24 hr olanzapine 20 mg tablet 20 mg PO BEDTIME 10/16/24 10/16/24 Unknown History pravastatin 20 mg tablet 20 mg PO DAILY 10/16/24 10/16/24 Unknown History sertraline 100 mg tablet 200 mg PO BEDTIME 10/16/24 10/17/24 Unknown History trazodone 100 mg tablet 100 mg PO BEDTIME 10/16/24 10/16/24 Unknown History hydroxyzine HCl 25 mg tablet 25 mg PO TID PRN Anxiety 10/17/24 10/17/24 Unknown History zolpidem 10 mg tablet 10 mg PO BEDTIME PRN Insomnia, If 10/17/24 10/17/24 Unknown History Olanzapine not working after 1 hour Exam Height,Weight and Vital Signs: Height 5 ft 7 in Weight 68.946 kg Last Vital Signs Temp 97.0 F 11/01/24 13:33 Pulse 88 11/01/24 13:33 Resp 17 11/01/24 13:33 BP 146/70 H 11/01/24 13:33 Pulse Ox 96 11/01/24 13:33 O2 Del Method Room Air 11/01/24 13:33 O2 Flow Rate 2 11/01/24 13:07 Pertinent Lab Results Pertinent Lab Results: Laboratory Tests 10/16/24 10/17/24 16:35 07:56 Sodium 140 Potassium 3.6 Chloride 107 Carbon Dioxide 26 Anion Gap 11 L BUN 26 H Creatinine 0.78 Estim Creat Clear Calc 64.3 Estimated GFR > 60 Random Glucose 90 Estimat Average Glucose 111 Hemoglobin A1c % 5.5 Calcium 8.6 Magnesium 2.1 Total Bilirubin 0.3 AST 19 ALT 31 Alkaline Phosphatase 69 Total Protein 7.1 Albumin 4.0 Triglycerides 166 H Cholesterol 195 LDL Cholesterol, Calc 132 H HDL Cholesterol 30 L Vitamin B12 505 Folate 14.4 TSH 2.22 Airway Mallampati Class: II TM Dist: >3cm Heart: RRR Lungs: CTA Assessment and Plan Assessment Anesthesia Assessment: Anesthesia Plan Discussed and Chart Reviewed Final Anesthetic Review Family History of Problems with Anesthesia: No History of Problems with Anesthesia: No NPO: Yes ASA Class: III Final Preanesthetic Review: Meds/Allgs Chart Reviewed, Consent Obtained/Reviewed and Anes Risks/Benef Reviewed Patient Risk: Low Procedure Risk: Low Anesthetic Plan Anesthetic Plan: GA Disposition: Standard PACU
--- NOTE | 2024-11-01 14:15 | HO.POSTANES ---
Post Anesthesia Evaluation Post Anesthesia Evaluation Date of Service: 11/01/24 Vital Signs: Vital Signs Temp Pulse Resp BP Pulse Ox O2 Del Method O2 Flow Rate 11/01/24 13:33 97.0 F 88 17 146/70 H 96 Room Air 11/01/24 13:13 89 21 H 149/75 H 96 Room Air 11/01/24 13:07 91 22 H 153/84 H 96 Nasal Cannula with ETCO2 2 11/01/24 13:03 91 20 144/72 H 97 Nasal Cannula with ETCO2 2 11/01/24 12:58 97.3 F 88 16 149/68 H 93 Nasal Cannula with ETCO2 3 11/01/24 11:26 98.9 F 66 16 110/62 94 Room Air 11/01/24 08:22 96.8 F 69 18 118/62 95 Room Air Anesthesia: General Mental Status: Awake Pain Control: Satisfactory Nausea/Vomiting: None Hydration: Adequate Anesthesia-Related Issues: No Anes. Related Issues
--- NOTE | 2024-11-01 14:43 | PM.PSYDC ---
DS: Providers Provider Date of Service: 11/01/24 Date of admission: 10/16/24 14:21 Date of discharge: 11/01/24 Primary care physician: Unknown Physician Consults: 10/19/24 15:29 Consult to Hospitalist Routine Comment: Consulting Provider: [facility] [place] Hospitalists Reason For Exam: ect clearance Discharging clinician: Ct Franks DS: Diagnosis Discharge Diagnosis (1) MDD (major depressive disorder), recurrent severe, without psychosis: Status: Inactive (2) OCD (obsessive compulsive disorder): Status: Acute DS: Medications Discharge Medications Home Medications: Home Medications ?Medication ?Instructions ?Recorded ?Confirmed multivitamin 1 tab PO DAILY 01/11/24 10/16/24 pravastatin 20 mg tablet 20 mg PO DAILY 10/16/24 10/16/24 Previous Rx's ?Medication ?Instructions ?Recorded alprazolam 0.5 mg tablet 0.5 mg PO DAILY PRN 11/01/24 Anxiety/Restlessness #15 tabs amlodipine 5 mg tablet 5 mg PO DAILY #30 tabs 11/01/24 metoprolol succinate 50 mg 50 mg PO DAILY #30 tabs 11/01/24 tablet,extended release 24 hr olanzapine 20 mg tablet 20 mg PO BEDTIME #30 tabs 11/01/24 sertraline 100 mg tablet 200 mg (2 x 100 mg) PO BEDTIME #60 11/01/24 tabs zolpidem 5 mg tablet 10 mg (2 x 5 mg) PO BEDTIME PRN 11/01/24 Insomnia #30 tabs Mental Status Exam Mental Status Exam Narrative: Appearance: wearing hospital gown, decreased blinking, mask-like expression, in NAD. Behavior: cooperative Psychomotor: no agitation or retardation noted. no tremors. TP: linear TC: looking forward to return home Mood: calmer, better Affect: constricted in range, but congruent SI: denies HI: denies VH/AH: none Delusions: none Insight/judgment: fair x 2. memory/cog: alert, oriented x 3. MOCA 23/30, ACL 4.2. deficits in visuo spatial and executive function. showing moderate cognitive impairment. DS: Summary Hospital Course Hospital Course: Narrative: Mrs. Sparks is a 69 year-old woman with hx of ELIAN, MDD, OCD who was brought via EMS after found her and not waking up. Per EMS, pt was unresponsive, saturating 80% on RA. In the ED, pt was intubated and admitted to ICU for airway protection. She was extubated on 10/12. Utox positive for benzos. On the unit, pt reports she has been feeling more depressed and anxious. She denies that intent with OD was not to end her life but go to sleep because she reports her anxiety was severe. She endorses feeling shame and guilt about recent OD and severe medical consequences. She adamantly denies suicidal ideation. Mrs. Sparks has had a total of 5 inpatient admission since 2021, 3 of them in 2023 with now 2 intentional OD. She has tried more than 7 antidepressants (including SSRI, SNRI, TCA) and TMS. Although she reports current medication regimen seems to be most effective- including sertraline 200mg po qhs, olanzapine 20mg po qhs. She was started on wellbutrin 4 days prior to intentional OD. She is not sure if wellbutrin increased her anxiety, but this is a possibility. She reports improved sleep with ambien, and olanzapine. No hx of VH/AH. No delusional content. Past Psychiatric History: -Overall stable for about 25 years on Prozac 60mg until it pooped out Prozac for 25 years: Pooped out Paxil for 10 years : Stop working HOSPITAL COURSE On the unit, pt was admitted on a CV and placed on 15 minutes checks for safety. Pt has struggled with increased depression, severe anxious and restless mood, mostly in the evenings which has led to impulsive OD on medications twice this year. We reviewed multiple medication trials including 7 antidepressants in the past 2 years, TMS. It does seem that most effective antidepressant for both depression and anxiety is sertraline- will continue it. However, given that she has had partial response to medications and multiple inpt admission and ED visits, recommended ECT, which she agreed. She received a total of 3 ECT treatment while in the hospital with the plan to continue maintaince ECT currently at least once a month or more frequent if needed. Her affect gradually presented as less anxious and less restless. She continued to denied SI/HI. No signs of psychosis or delusions. She was sleeping well with ambien. Memory and cognitive assessments were completed which showed moderate cognitive impairments in visuo-spatial, executive function, recall, with fairly intact orientation. Head CT does show microvascular changes and atrophy- calcification of right side of cerebellum. Vascular type of cognitive impairment. She attended assigned groups. She was eating well. She was social with peers. We had family meeting to discuss findings. We discussed safety in the home including the fact that agreed to keep her medications and administer them to her daily. She was sent rx for xanax 1mg po daily prn for severe anxiety. The use of prn medications for anxiety significantly reduced throughout the hospital stay. 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 Status at Discharge Cognitive/behavioral status at discharge: Pt with brighter affect. She reports less anxious mood. No SI/HI. No psychosis or delusions. sleeping and eating well. Future oriented. Functional status at discharge: independent ambulation Overall status at discharge: patient is progressing back to baseline Time Spent with Patient Time attestation: Total time managing care of this patient today __35__ minutes. Time spent: Greater than 30 minutes Discharge Plan Discharge Anticipated Discharge Date/Time: 11/01/24 14:34 Patient Disposition: Home, Self-Care Discharge Diagnosis: MDD, recurrent, moderate MCI Referrals: Dr Isaac [Other] - 11/28/24 9:30 am (Your next appointment with Dr Isaac is 11/28/24 at 9:30am. ) [facility] -[facility] [Other] - 11/09/24 1:00 pm (Your next therapy appointment is in person on 11/09/24 at 1pm with Sherri. ) [facility] [Other] - 11/08/24 12:30 pm (Your next appointment with primary care is with Dr Mandy Huang on 11/08/24 at 12:30. ) [facility] Program [Other] - 11/08/24 (Your next ECT sessions are scheduled for Wednesday11/08/24 and 11/15/24. Please arrive to Short stay surgery located on the second floor of the hospital at 6am on these days. ) Discharge Medications: New metoprolol succinate 50 mg Tablet Extended Release 24 Hr 50 mg PO DAILY Qty: 30 0RF Protocol: Hold for SBP/HR < HOLD for SBP < : 90 HOLD for HR < : 60 amlodipine 5 mg Tablet 5 mg PO DAILY Qty: 30 0RF Protocol: Hold for SBP< HOLD for SBP < : 90 alprazolam 0.5 mg Tablet 0.5 mg PO DAILY PRN (Reason: Anxiety/Restlessness) Qty: 15 1RF olanzapine 20 mg tablet 20 mg PO BEDTIME Qty: 30 0RF sertraline 100 mg Tablet 200 mg PO BEDTIME Qty: 60 0RF zolpidem 5 mg Tablet 10 mg PO BEDTIME PRN (Reason: Insomnia) Qty: 30 1RF Continued multivitamin Tablet 1 tab PO DAILY pravastatin 20 mg tablet 20 mg PO DAILY Discontinued metoprolol succinate 50 mg tablet extended release 24 hr 50 mg PO DAILY sertraline 100 mg tablet 200 mg PO BEDTIME amlodipine 5 mg tablet 5 mg PO DAILY alprazolam 0.5 mg tablet 0.5 mg PO BID PRN (Reason: Anxiety) trazodone 100 mg tablet 100 mg PO BEDTIME bupropion HCl 75 mg tablet 75 mg PO DAILY olanzapine 20 mg tablet 20 mg PO BEDTIME hydroxyzine HCl 25 mg tablet 25 mg PO TID PRN (Reason: Anxiety) zolpidem 10 mg tablet 10 mg PO BEDTIME PRN (Reason: Insomnia, If Olanzapine not working after 1 hour) Discharge Orders: Discharge Order (Routine); Ordered 11/01/24 Ordered By: Ct Franks Diet: Regular diet Activity on Discharge: As tolerated Stand Alone Forms: Patient Portal Discharge page, Community Support Print Language: Haitian Care Plan Goals: 1. Maintain mood 2. No SI/HI Health Concerns: Follow up with PCP for routine care Plan of Treatment: 1. Take medications as prescribed, managed by her who has agreed to give medications daily. 2. Go to nearest ED or call 911 in event of emergency Assessment: Pt less anxious, less restless. Sleeping better. No SI/HI. No VH/AH. No s/s of delusions. Future oriented and looking forward to return home and continue tx. Discharge Date/Time: 11/01/24 15:30
== END 2024-11-01 15:30 | disposition home or self-care (01) | DRG 885 ==
PROVIDERS: Psychiatry & Neurology Psychiatry; Admitting Provider Social Worker; Visit Provider Social Worker
PROC: GZB4ZZZ Other Electroconvulsive Therapy (ICD-10-PCS; CPT 90870; principal; 2024-10-25 08:00)
PROC: (CPT 90870; principal; 2024-11-06 07:00)
DX: F33.3 Major depressive disorder, recurrent, severe with psychotic symptoms (principal); F41.1 Generalized anxiety disorder; F42.9 Obsessive-compulsive disorder, unspecified; E78.5 Hyperlipidemia, unspecified; Z91.51 Personal history of suicidal behavior; Z79.899 Other long term (current) drug therapy
CPT/HCPCS: 36415; 80053; 80061; 82607; 82746; 83036; 83735; 84443; 90870; J0330; J1885; J2405; J2704; J7120

== ENCOUNTER → 2024-10-16 14:21 | Outpatient (BNV) | payer MEDICARE, OTHER, SELFPAY | PROVIDERS: Admitting Provider Social Worker; Visit Provider Psychiatry & Neurology Psychiatry | DX: F33.2 Major depressive disorder, recurrent severe without psychotic features (principal); F41.1 Generalized anxiety disorder; F42.9 Obsessive-compulsive disorder, unspecified | CPT/HCPCS: 99499 ==

== ENCOUNTER → 2024-10-16 14:21 | Outpatient (BNV) | payer MEDICARE, OTHER, SELFPAY | PROVIDERS: Admitting Provider Social Worker; Visit Provider Social Worker | DX: F33.2 Major depressive disorder, recurrent severe without psychotic features (principal); F42.9 Obsessive-compulsive disorder, unspecified | CPT/HCPCS: 90792; 99231; 99232 ==

== ENCOUNTER → 2024-10-16 14:21 | Outpatient (BNV) | payer MEDICARE, OTHER, SELFPAY | PROVIDERS: Admitting Provider Social Worker; Visit Provider Physician Assistant | DX: Z01.818 Encounter for other preprocedural examination (principal) | CPT/HCPCS: 99429 ==

== ENCOUNTER 2024-11-08 05:40 | Day surgery (SDC) | payer MEDICARE, OTHER, SELFPAY ==
[2024-11-08 06:26] VITALS: BMI 23.5
--- NOTE | 2024-11-08 06:52 | P.CONAN_ITS ---
FORMERLY [facility] Active Problems Active Problems: All Active Problems Overdose (Acute) S/P total knee arthroplasty (Acute) OCD (obsessive compulsive disorder) (Acute) Chronic insomnia (Acute) Status post total left knee replacement (Acute) Pre-op evaluation (Acute) Mild recurrent major depression (Acute) Skin lesion (Acute) Primary osteoarthritis of left knee (Acute) Sinusitis (Acute) Osteoporosis (Acute) Well woman exam (Acute) Status post total right knee replacement (Acute) Palpitations (Acute) Hypercalcemia (Acute) PAC (premature atrial contraction) (Acute) Preoperative examination (Acute) Primary osteoarthritis of right knee (Acute) Essential hypertension (Acute) Dyslipidemia (Acute) Past Medical History Medical History Panic disorder OCD (obsessive compulsive disorder) MDD (major depressive disorder), recurrent severe, without psychosis Major depressive disorder Arthritis Panic attacks Osteoporosis PTSD (post-traumatic stress disorder) ELIAN (generalized anxiety disorder) PAC (premature atrial contraction) History of anxiety Dyslipidemia Osteoarthritis (arthritis due to wear and tear of joints) Diverticulitis Essential hypertension Hyperkalemia Depression Family History Family History Mother Dementia Father No problems noted. Family history of problems with anesthesia: No Surgical History Surgical History Hx of tonsillectomy Hx of tubal ligation History of total right knee replacement Hx of colonoscopy History of carpal tunnel release History of Problems with Anesthesia: No Social History Social History Household Members: Spouse Housing: House Are you a primary long term care social worker to a significant other at home: No Do you presently have visiting nurse or other home services: No Unable to assess alcohol history related to: Unable to respond Alcohol intake: never Comment: 1:1 sitter Patient Tobacco Use Status: Never used Tobacco e-Cigarette/Vaping Use: Never Used Second Hand Smoke Exposure: No Substance Use Type: Marijuana Advance Directives: No Advance Directives Information Provided: Yes Advance Directives Date on File: 10/11/24 service: No Current occupational status: retired Current occupation: Right Handed Sexual orientation: Straight/Heterosexual Cognitive needs: No Hearing needs: No Vision needs: No Meds Allergies Allergy/AdvReac Type Severity Reaction Status Date / Time No Known Allergies Allergy Verified 10/10/24 16:55 [No Known Allergies*] Home Medications ?Medication ?Instructions ?Recorded ?Confirmed ?Last Taken ?Type multivitamin 1 tab PO DAILY 01/11/24 10/16/24 04/20/24 History pravastatin 20 mg tablet 20 mg PO DAILY 10/16/24 10/16/24 Unknown History Exam Height,Weight and Vital Signs: Height 5 ft 7 in Weight 68.039 kg Airway Mallampati Class: II (caps theoughout) TM Dist: >3cm Neck ROM: Full Heart: rrr Lungs: cta Assessment and Plan Assessment Anesthesia Assessment: Anesthesia Plan Discussed and Chart Reviewed Final Anesthetic Review Family History of Problems with Anesthesia: No History of Problems with Anesthesia: No NPO: Yes ASA Class: III Final Preanesthetic Review: No Changes in Pt Med Stat, Meds/Allgs Chart Reviewed and Consent Obtained/Reviewed Patient Risk: Intermediate Procedure Risk: Intermediate Anesthetic Plan Anesthetic Plan: GA Disposition: Standard PACU
[2024-11-08] MEDS: Lactated Ringers 1,000 ML 50 ML IVCONT (07:00)
--- NOTE | 2024-11-08 07:11 | MHC.SHP ---
Pre-Procedural Eval Section A - 24 Hr Update-Section A only Date of Service: 11/08/24 The patient is an INPATIENT: No Changes since office visit: No Cold of Flu in the past 2 weeks, No New Medical Problems, No Changes in Medication and No Patient answered all questions The patient has been examined within 24 hours of the surgical procedure. The History & Physical has been completed within 30 days and I have reviewed it.: Yes Section B - Complete if H&P > 30 days Chief Complaint: depression Allergies: Allergies Allergy/AdvReac Type Severity Reaction Status Date / Time No Known Allergies Allergy Verified 10/10/24 16:55 [No Known Allergies*] Plan I have reviewed the history and physical and performed a pertinent physical examination on my patient. No changes have occurred unless specified. Time Spent With Patient Time: Total time managing care of this patient today ____ minutes.
--- NOTE | 2024-11-08 07:38 | HO.ECTPROC ---
ECT Procedure Note Diagnosis/Treatment Date of Service: 11/08/24 Diagnosis: Major Depressive Disorder Previous ECT Date: 11/01/24 Current Treatment Number: 5 Treatment: Series Interval Clinical Notes: The patient reported euthymia, no side effects with previous ECT. ECT done as usual, no complications, woke up welll. Time: Total time managing care of this patient today _30___ minutes. ECT Settings Device: THYMATRON DGx Electrode Placement: Right Unilateral Program/Pulse Width: 0.25 Energy Percent: 100 Seizure Duration By EEG (in seconds): 38 By Motor Observation (in seconds): 24 Medications Administration General Anesthetic: Etomidate (12) Muscle Relaxant: Succinylcholine (80) Ancillary Medications Analgesics: Torodol - Pre ECT Miscillaneous Medications: Propofol Airway Management Airway Management: Bag Mask Ventilation Treatment Recommendations No Changes Recommended: No change Pt Tolerated Procedure w/o Issue: Yes
[2024-11-08 07:46] VITALS: BP 141/75; PULSE 78; RESP 20; TEMP 36.8; O2SAT 94
[2024-11-08 07:50] VITALS: BP 138/87; PULSE 88; RESP 20; O2SAT 94
[2024-11-08 07:55] VITALS: BP 148/90; PULSE 88; RESP 20; O2SAT 94
[2024-11-08 08:00] VITALS: BP 145/75; PULSE 87; RESP 20; O2SAT 94
[2024-11-08 08:15] VITALS: BP 151/89; PULSE 86; RESP 20; O2SAT 94
== END 2024-11-08 08:41 | disposition home or self-care (01) ==
PROVIDERS: PCP Student in an Organized Health Care Education/Training Program; Visit Provider Psychiatry & Neurology Psychiatry
PROC: (CPT 90870; principal; 2024-11-08 07:00)
DX: F33.3 Major depressive disorder, recurrent, severe with psychotic symptoms (principal); F39 Unspecified mood [affective] disorder; F41.1 Generalized anxiety disorder; Z91.51 Personal history of suicidal behavior; F42.9 Obsessive-compulsive disorder, unspecified; I10 Essential (primary) hypertension; E78.5 Hyperlipidemia, unspecified; M81.0 Age-related osteoporosis without current pathological fracture; Z79.899 Other long term (current) drug therapy
CPT/HCPCS: 90870; J0330; J2405; J2704

== ENCOUNTER → 2024-11-08 05:40 | Outpatient (BNV) | payer MEDICARE, OTHER, SELFPAY | PROVIDERS: PCP Student in an Organized Health Care Education/Training Program; Visit Provider Psychiatry & Neurology Psychiatry | DX: F33.2 Major depressive disorder, recurrent severe without psychotic features (principal) | CPT/HCPCS: 90870 ==

== ENCOUNTER 2024-11-15 05:37 | Day surgery (SDC) | payer MEDICARE, OTHER, SELFPAY ==
[2024-11-15 06:31] VITALS: BMI 23.8
[2024-11-15 06:32] VITALS: BP 137/72; PULSE 70; RESP 18; TEMP 36.4; O2SAT 93
--- NOTE | 2024-11-15 06:42 | HO.ANESPROP2 ---
FORMERLY [facility] Active Problems Active Problems: All Active Problems Overdose (Acute) S/P total knee arthroplasty (Acute) OCD (obsessive compulsive disorder) (Acute) Chronic insomnia (Acute) Status post total left knee replacement (Acute) Pre-op evaluation (Acute) Mild recurrent major depression (Acute) Skin lesion (Acute) Primary osteoarthritis of left knee (Acute) Sinusitis (Acute) Osteoporosis (Acute) Well woman exam (Acute) Status post total right knee replacement (Acute) Palpitations (Acute) Hypercalcemia (Acute) PAC (premature atrial contraction) (Acute) Primary osteoarthritis of right knee (Acute) Essential hypertension (Acute) Dyslipidemia (Acute) Past Medical History Medical History Panic disorder OCD (obsessive compulsive disorder) MDD (major depressive disorder), recurrent severe, without psychosis Major depressive disorder Arthritis Panic attacks Osteoporosis PTSD (post-traumatic stress disorder) ELIAN (generalized anxiety disorder) PAC (premature atrial contraction) History of anxiety Dyslipidemia Osteoarthritis (arthritis due to wear and tear of joints) Diverticulitis Essential hypertension Hyperkalemia Depression Family History Family History Mother Dementia Father No problems noted. Family history of problems with anesthesia: No Surgical History Surgical History Hx of tonsillectomy Hx of tubal ligation History of total right knee replacement Hx of colonoscopy History of carpal tunnel release History of Problems with Anesthesia: No Social History Social History Household Members: Spouse Housing: House Are you a primary neonatal intensive care unit nurse to a significant other at home: No Do you presently have visiting nurse or other home services: No Unable to assess alcohol history related to: Unable to respond Alcohol intake: never Comment: 1:1 sitter Patient Tobacco Use Status: Never used Tobacco e-Cigarette/Vaping Use: Never Used Second Hand Smoke Exposure: No Substance Use Type: Marijuana Advance Directives: No Advance Directives Information Provided: Yes Advance Directives Date on File: 10/11/24 service: No Current occupational status: retired Current occupation: Right Handed Sexual orientation: Straight/Heterosexual Cognitive needs: No Hearing needs: No Vision needs: No Meds Allergies Allergy/AdvReac Type Severity Reaction Status Date / Time No Known Allergies Allergy Verified 10/10/24 16:55 [No Known Allergies*] Home Medications ?Medication ?Instructions ?Recorded ?Confirmed ?Last Taken ?Type multivitamin 1 tab PO DAILY 01/11/24 10/16/24 04/20/24 History pravastatin 20 mg tablet 20 mg PO DAILY 10/16/24 10/16/24 Unknown History Exam Height,Weight and Vital Signs: Height 5 ft 7 in Weight 68.946 kg Last Vital Signs Temp 97.6 F 11/15/24 06:32 Pulse 70 11/15/24 06:32 Resp 18 11/15/24 06:32 BP 137/72 11/15/24 06:32 Pulse Ox 93 11/15/24 06:32 O2 Del Method Room Air 11/15/24 06:32 Airway Mallampati Class: II TM Dist: >3cm Neck ROM: Full Heart: rrr Lungs: cta Assessment and Plan Assessment Anesthesia Assessment: Anesthesia Plan Discussed and Chart Reviewed Final Anesthetic Review Family History of Problems with Anesthesia: No History of Problems with Anesthesia: No NPO: Yes ASA Class: III Final Preanesthetic Review: No Changes in Pt Med Stat, Meds/Allgs Chart Reviewed and Consent Obtained/Reviewed Patient Risk: Intermediate Procedure Risk: Intermediate Anesthetic Plan Anesthetic Plan: GA Disposition: Standard PACU
--- NOTE | 2024-11-15 07:03 | MHC.SHP ---
Pre-Procedural Eval Section A - 24 Hr Update-Section A only Date of Service: 11/15/24 Section B - Complete if H&P > 30 days Chief Complaint: depression Details of Present Illness: pt with hx mde doing better with ect no complaints no new med problems Relevant Social History: None Allergies: Allergies Allergy/AdvReac Type Severity Reaction Status Date / Time No Known Allergies Allergy Verified 10/10/24 16:55 [No Known Allergies*] Review of Systems Sugical H&P ROS: Negative: Cardiovascular, Respiratory and Neurological and Yes, Specify: Psychiatric (improved) Exam Surgical H&P Exam: Normal: Heart, Normal: Lungs and Normal: Neurological Plan Diagnosis/Plan: Unchanged I have reviewed the history and physical and performed a pertinent physical examination on my patient. No changes have occurred unless specified. Time Spent With Patient Time: Total time managing care of this patient today ____ minutes.
--- NOTE | 2024-11-15 07:04 | HO.ECTPROC ---
ECT Procedure Note Diagnosis/Treatment Date of Service: 11/15/24 Diagnosis: Major Depressive Disorder Previous ECT Date: 11/01/24 Current Treatment Number: 6 Treatment: Series Interval Clinical Notes: Pt reported inc depression anxiety rumination. no side effects with previous ECT. ECT inc pw 0.5 discussed with pt Time: Total time managing care of this patient today ____ minutes. ECT Settings Device: THYMATRON DGx Electrode Placement: Right Unilateral Program/Pulse Width: 0.50 Energy Percent: 100 Seizure Duration By EEG (in seconds): 52 Medications Administration General Anesthetic: Etomidate (12) Muscle Relaxant: Succinylcholine (80) Ancillary Medications Analgesics: Torodol - Pre ECT Miscillaneous Medications: Propofol Airway Management Airway Management: Bag Mask Ventilation Treatment Recommendations No Changes Recommended: No change Notes: monitor response to inc pw schedule additional ect 11/17 Pt Tolerated Procedure w/o Issue: Yes
[2024-11-15 07:23] VITALS: BP 142/67; PULSE 54; RESP 14; TEMP 36.9; O2SAT 96
[2024-11-15 07:25] VITALS: BP 135/80; PULSE 70; RESP 14; O2SAT 96
[2024-11-15 07:30] VITALS: BP 129/93; PULSE 80; RESP 14; O2SAT 93
[2024-11-15 07:35] VITALS: BP 161/94; PULSE 87; RESP 14; O2SAT 93
[2024-11-15 07:50] VITALS: BP 167/97; PULSE 86; RESP 14; TEMP 36.9; O2SAT 94
== END 2024-11-15 08:14 | disposition home or self-care (01) ==
PROVIDERS: PCP Student in an Organized Health Care Education/Training Program; Visit Provider Psychiatry & Neurology Psychiatry
PROC: (CPT 90870; principal; 2024-11-15 07:00)
DX: F33.2 Major depressive disorder, recurrent severe without psychotic features (principal); F41.8 Other specified anxiety disorders; F01-F99 Mental, behavioral and neurodevelopmental disorders; Z68.23 Body mass index [BMI] 23.0-23.9, adult; F39 Unspecified mood [affective] disorder; Z91.51 Personal history of suicidal behavior; F42.9 Obsessive-compulsive disorder, unspecified; F41.0 Panic disorder [episodic paroxysmal anxiety]; I10 Essential (primary) hypertension; E78.5 Hyperlipidemia, unspecified; E87.5 Hyperkalemia; M81.0 Age-related osteoporosis without current pathological fracture; Z79.899 Other long term (current) drug therapy; Z98.890 Other specified postprocedural states
CPT/HCPCS: 90870; J0330; J2405; J2704

== ENCOUNTER → 2024-11-15 05:37 | Outpatient (BNV) | payer MEDICARE, OTHER, SELFPAY | PROVIDERS: PCP Student in an Organized Health Care Education/Training Program; Visit Provider Psychiatry & Neurology Psychiatry | DX: F33.3 Major depressive disorder, recurrent, severe with psychotic symptoms (principal) | CPT/HCPCS: 90870 ==

== ENCOUNTER → 2024-11-17 05:43 | Outpatient (BNV) | payer MEDICARE, OTHER, SELFPAY | PROVIDERS: PCP Student in an Organized Health Care Education/Training Program; Visit Provider Psychiatry & Neurology Psychiatry | DX: F33.3 Major depressive disorder, recurrent, severe with psychotic symptoms (principal) | CPT/HCPCS: 90870 ==

== ENCOUNTER 2024-11-22 05:40 | Day surgery (SDC) | payer MEDICARE, OTHER, SELFPAY ==
[2024-11-22] VITALS (7 sets, daily range): BP systolic 124–189; BP diastolic 70–99; PULSE 66–79; RESP 16; TEMP 36.1–37.2; O2SAT 94–95; BMI 24.3
--- NOTE | 2024-11-22 07:08 | MHC.SHP ---
Pre-Procedural Eval Section A - 24 Hr Update-Section A only Date of Service: 11/22/24 The patient is an INPATIENT: No Changes since office visit: No Cold of Flu in the past 2 weeks, No New Medical Problems, No Changes in Medication and No Patient answered all questions The patient has been examined within 24 hours of the surgical procedure. The History & Physical has been completed within 30 days and I have reviewed it.: Yes Section B - Complete if H&P > 30 days Chief Complaint: depression Allergies: Allergies Allergy/AdvReac Type Severity Reaction Status Date / Time No Known Allergies Allergy Verified 10/10/24 16:55 [No Known Allergies*] Plan I have reviewed the history and physical and performed a pertinent physical examination on my patient. No changes have occurred unless specified. Time Spent With Patient Time: Total time managing care of this patient today ____ minutes.
--- NOTE | 2024-11-22 07:23 | HO.ECTPROC ---
ECT Procedure Note Diagnosis/Treatment Date of Service: 11/22/24 Diagnosis: Major Depressive Disorder Previous ECT Date: 11/17/24 Current Treatment Number: 8 Treatment: Series Interval Clinical Notes: The patient reported stable mood, she was already discharged, she is at home. No side effects with previous ECT. ECT done as usual, no complications, woke up well. She needed Labetalol 10 mg IVP for high BP after ECT. Time: Total time managing care of this patient today ____ minutes. ECT Settings Device: THYMATRON DGx Electrode Placement: Right Unilateral Program/Pulse Width: 0.50 Energy Percent: 100 Seizure Duration By EEG (in seconds): 41 By Motor Observation (in seconds): 24 Medications Administration General Anesthetic: Etomidate (12) Muscle Relaxant: Succinylcholine (80) Ancillary Medications Anti-emetics: Zofran - Pre ECT Cardiovascular Medications: Labetolol (10 mg after ECT due to high BP) Treatment Recommendations No Changes Recommended: No change Notes: Propofol not given, Labetalol given due to high BP, responded well Pt Tolerated Procedure w/o Issue: Yes
--- NOTE | 2024-11-22 11:43 | HO.ANESPROP2 ---
HPI - Anesthesia Eval Consult details Narrative: 69 yo female patient for ECT PMFSH Active Problems Active Problems: All Active Problems Overdose (Acute) S/P total knee arthroplasty (Acute) OCD (obsessive compulsive disorder) (Acute) Chronic insomnia (Acute) Status post total left knee replacement (Acute) Pre-op evaluation (Acute) Mild recurrent major depression (Acute) Skin lesion (Acute) Primary osteoarthritis of left knee (Acute) Sinusitis (Acute) Osteoporosis (Acute) Well woman exam (Acute) Status post total right knee replacement (Acute) Palpitations (Acute) Hypercalcemia (Acute) PAC (premature atrial contraction) (Acute) Primary osteoarthritis of right knee (Acute) Essential hypertension (Acute) Dyslipidemia (Acute) Past Medical History Medical History Panic disorder OCD (obsessive compulsive disorder) MDD (major depressive disorder), recurrent severe, without psychosis Major depressive disorder Arthritis Panic attacks Osteoporosis PTSD (post-traumatic stress disorder) ELIAN (generalized anxiety disorder) PAC (premature atrial contraction) History of anxiety Dyslipidemia Osteoarthritis (arthritis due to wear and tear of joints) Diverticulitis Essential hypertension Hyperkalemia Depression Family History Family History Mother Dementia Father No problems noted. Family history of problems with anesthesia: No Surgical History Surgical History Hx of tonsillectomy Hx of tubal ligation History of total right knee replacement Hx of colonoscopy History of carpal tunnel release History of Problems with Anesthesia: No Social History Social History Household Members: Spouse Housing: House Are you a primary healthcare architect to a significant other at home: No Do you presently have visiting nurse or other home services: No Unable to assess alcohol history related to: Unable to respond Alcohol intake: never Comment: 1:1 sitter Patient Tobacco Use Status: Never used Tobacco e-Cigarette/Vaping Use: Never Used Second Hand Smoke Exposure: No Substance Use Type: Marijuana Advance Directives Date on File: 10/11/24 service: No Current occupational status: retired Current occupation: Right Handed Sexual orientation: Straight/Heterosexual Cognitive needs: No Hearing needs: No Vision needs: No Meds Allergies Allergy/AdvReac Type Severity Reaction Status Date / Time No Known Allergies Allergy Verified 10/10/24 16:55 [No Known Allergies*] Home Medications ?Medication ?Instructions ?Recorded ?Confirmed ?Last Taken ?Type multivitamin 1 tab PO DAILY 01/11/24 10/16/24 04/20/24 History pravastatin 20 mg tablet 20 mg PO DAILY 10/16/24 10/16/24 Unknown History Exam Height,Weight and Vital Signs: Height 5 ft 7 in Weight 70.307 kg Vital Signs Temp Pulse Resp BP Pulse Ox O2 Del Method O2 Flow Rate 97 F 67 16 124/70 95 Nasal Cannula 2 11/22/24 06:34 11/22/24 06:34 11/22/24 06:34 11/22/24 06:34 11/22/24 06:34 11/22/24 06:34 11/22/24 06:34 Airway Mallampati Class: III TM Dist: >3cm Neck ROM: Full Loose/Missing/Broken Teeth: No Heart: RRR Lungs: CTAB Assessment and Plan Assessment Anesthesia Assessment: Anesthesia Plan Discussed and Chart Reviewed Final Anesthetic Review Family History of Problems with Anesthesia: No History of Problems with Anesthesia: No NPO: Yes ASA Class: III Final Preanesthetic Review: No Changes in Pt Med Stat, Meds/Allgs Chart Reviewed, Consent Obtained/Reviewed and Anes Risks/Benef Reviewed Patient Risk: Intermediate Procedure Risk: Intermediate Anesthetic Plan Anesthetic Plan: GA Disposition: Standard PACU
== END 2024-11-22 08:41 | disposition home or self-care (01) ==
PROVIDERS: PCP Student in an Organized Health Care Education/Training Program; Visit Provider Psychiatry & Neurology Psychiatry
PROC: (CPT 90870; principal; 2024-11-22 07:30)
DX: F33.2 Major depressive disorder, recurrent severe without psychotic features (principal); F42.9 Obsessive-compulsive disorder, unspecified; F41.0 Panic disorder [episodic paroxysmal anxiety]; F41.1 Generalized anxiety disorder; I10 Essential (primary) hypertension; I49.1 Atrial premature depolarization; E78.5 Hyperlipidemia, unspecified; E87.5 Hyperkalemia; M81.0 Age-related osteoporosis without current pathological fracture; Z79.899 Other long term (current) drug therapy; Z96.651 Presence of right artificial knee joint; Z98.890 Other specified postprocedural states
CPT/HCPCS: 90870; J0330; J1920; J2405; J2704

== ENCOUNTER → 2024-11-22 05:40 | Outpatient (BNV) | payer MEDICARE, OTHER, SELFPAY | PROVIDERS: PCP Student in an Organized Health Care Education/Training Program; Visit Provider Psychiatry & Neurology Psychiatry | DX: F33.3 Major depressive disorder, recurrent, severe with psychotic symptoms (principal) | CPT/HCPCS: 90870 ==

== ENCOUNTER 2024-11-29 05:50 | Day surgery (SDC) | payer MEDICARE, OTHER, SELFPAY ==
[2024-11-29] VITALS (7 sets, daily range): BP systolic 124–151; BP diastolic 67–99; PULSE 60–79; RESP 13–22; TEMP 36.7; O2SAT 92–94; BMI 24.3
[2024-11-29] MEDS: Lactated Ringers 1,000 ML 100 ML IVCONT (06:51)
--- NOTE | 2024-11-29 07:06 | MHC.SHP ---
Pre-Procedural Eval Section A - 24 Hr Update-Section A only Date of Service: 11/29/24 The patient is an INPATIENT: No Section B - Complete if H&P > 30 days Chief Complaint: depression Details of Present Illness: pt with hx mde doing better with ect no complaints no new med problems Relevant Social History: None Allergies: Allergies Allergy/AdvReac Type Severity Reaction Status Date / Time No Known Allergies Allergy Verified 10/10/24 16:55 [No Known Allergies*] Review of Systems Sugical H&P ROS: Negative: Cardiovascular, Respiratory and Gastrointestinal and Yes, Specify: Psychiatric (improved anxiety dysphoria ) Exam Surgical H&P Exam: Normal: Heart, Normal: Lungs and Normal: Neurological Exam Comment: alert future oriented sleep improved Plan Diagnosis/Plan: Unchanged I have reviewed the history and physical and performed a pertinent physical examination on my patient. No changes have occurred unless specified. Time Spent With Patient Time: Total time managing care of this patient today ____ minutes.
--- NOTE | 2024-11-29 07:07 | HO.ECTPROC ---
ECT Procedure Note Diagnosis/Treatment Date of Service: 11/29/24 Diagnosis: Major Depressive Disorder Previous ECT Date: 11/17/24 Current Treatment Number: 9 Treatment: Series Interval Clinical Notes: Pt feeling better has been taking zolpidem with good effect. Much less depressed anxiety improved sees dr alston Time: Total time managing care of this patient today ____ minutes. ECT Settings Device: THYMATRON DGx Electrode Placement: Right Unilateral Program/Pulse Width: 0.50 Energy Percent: 100 Seizure Duration By EEG (in seconds): 44 Medications Administration General Anesthetic: Etomidate (12) Muscle Relaxant: Succinylcholine (80) Ancillary Medications Anti-emetics: Zofran - Pre ECT Miscillaneous Medications: Midazolam (1mg) Airway Management Airway Management: Bag Mask Ventilation Treatment Recommendations No Changes Recommended: No change Energy Percent: 100 Pt Tolerated Procedure w/o Issue: Yes
--- NOTE | 2024-11-29 09:53 | P.CONAN_ITS ---
[facility] Active Problems Active Problems: All Active Problems Overdose (Acute) S/P total knee arthroplasty (Acute) OCD (obsessive compulsive disorder) (Acute) Chronic insomnia (Acute) Status post total left knee replacement (Acute) Pre-op evaluation (Acute) Mild recurrent major depression (Acute) Skin lesion (Acute) Primary osteoarthritis of left knee (Acute) Sinusitis (Acute) Osteoporosis (Acute) Well woman exam (Acute) Status post total right knee replacement (Acute) Palpitations (Acute) Hypercalcemia (Acute) PAC (premature atrial contraction) (Acute) Primary osteoarthritis of right knee (Acute) Essential hypertension (Acute) Dyslipidemia (Acute) Past Medical History Medical History Panic disorder OCD (obsessive compulsive disorder) MDD (major depressive disorder), recurrent severe, without psychosis Major depressive disorder Arthritis Panic attacks Osteoporosis PTSD (post-traumatic stress disorder) ELIAN (generalized anxiety disorder) PAC (premature atrial contraction) History of anxiety Dyslipidemia Osteoarthritis (arthritis due to wear and tear of joints) Diverticulitis Essential hypertension Hyperkalemia Depression Functional capacity: independent ambulation Patient : No Family History Family History Mother Dementia Father No problems noted. Family history of problems with anesthesia: No Surgical History Surgical History Hx of tonsillectomy Hx of tubal ligation History of total right knee replacement Hx of colonoscopy History of carpal tunnel release History of Problems with Anesthesia: No Social History Social History Household Members: Spouse Housing: House Are you a primary morning caregiver to a significant other at home: No Do you presently have visiting nurse or other home services: No Unable to assess alcohol history related to: Unable to respond Alcohol intake: never Comment: 1:1 sitter Patient Tobacco Use Status: Never used Tobacco e-Cigarette/Vaping Use: Never Used Second Hand Smoke Exposure: No Substance Use Type: Marijuana Advance Directives Date on File: 10/11/24 service: No Current occupational status: retired Current occupation: Right Handed Sexual orientation: Straight/Heterosexual Cognitive needs: No Hearing needs: No Vision needs: No Meds Allergies Allergy/AdvReac Type Severity Reaction Status Date / Time No Known Allergies Allergy Verified 10/10/24 16:55 [No Known Allergies*] Home Medications ?Medication ?Instructions ?Recorded ?Confirmed ?Last Taken ?Type multivitamin 1 tab PO DAILY 01/11/24 10/16/24 04/20/24 History pravastatin 20 mg tablet 20 mg PO DAILY 10/16/24 10/16/24 Unknown History Exam Height,Weight and Vital Signs: Height 5 ft 7 in Weight 70.4 kg Last Vital Signs Temp 98.1 F 11/29/24 07:50 Pulse 74 11/29/24 08:16 Resp 16 11/29/24 08:16 BP 136/72 11/29/24 08:16 Pulse Ox 93 11/29/24 08:16 O2 Del Method Room Air 11/29/24 08:16 O2 Flow Rate 2 11/29/24 08:05 Airway Mallampati Class: II TM Dist: >3cm Neck ROM: Full Heart: RRR Lungs: CTA Assessment and Plan Assessment Anesthesia Assessment: Anesthesia Plan Discussed and Chart Reviewed Final Anesthetic Review Family History of Problems with Anesthesia: No History of Problems with Anesthesia: No NPO: Yes ASA Class: III Final Preanesthetic Review: Meds/Allgs Chart Reviewed, Consent Obtained/Reviewed and Anes Risks/Benef Reviewed Patient Risk: Low Procedure Risk: Low Anesthetic Plan Anesthetic Plan: GA Disposition: Standard PACU
--- NOTE | 2024-11-29 09:54 | HO.POSTANES ---
Post Anesthesia Evaluation Post Anesthesia Evaluation Date of Service: 11/29/24 Vital Signs: Vital Signs Temp Pulse Resp BP Pulse Ox O2 Del Method O2 Flow Rate 11/29/24 08:16 74 16 136/72 93 Room Air 11/29/24 08:05 78 18 142/76 H 92 Nasal Cannula with ETCO2 2 11/29/24 07:50 98.1 F 79 18 124/99 H 93 Nasal Cannula with ETCO2 4 11/29/24 07:48 79 18 140/82 H 93 Nasal Cannula with ETCO2 4 11/29/24 07:43 78 22 H 151/93 H 93 Nasal Cannula with ETCO2 4 11/29/24 07:38 98.1 F 68 19 131/75 93 Nasal Cannula with ETCO2 4 11/29/24 06:33 98.1 F 60 13 124/67 94 Room Air Anesthesia: General Mental Status: Awake Pain Control: Satisfactory Nausea/Vomiting: None Hydration: Adequate Anesthesia-Related Issues: No Anes. Related Issues
--- NOTE | 2024-11-29 12:45 | HO.ANESPROP2 ---
[facility] Active Problems Active Problems: All Active Problems Overdose (Acute) S/P total knee arthroplasty (Acute) OCD (obsessive compulsive disorder) (Acute) Chronic insomnia (Acute) Status post total left knee replacement (Acute) Pre-op evaluation (Acute) Mild recurrent major depression (Acute) Skin lesion (Acute) Primary osteoarthritis of left knee (Acute) Sinusitis (Acute) Osteoporosis (Acute) Well woman exam (Acute) Status post total right knee replacement (Acute) Palpitations (Acute) Hypercalcemia (Acute) PAC (premature atrial contraction) (Acute) Primary osteoarthritis of right knee (Acute) Essential hypertension (Acute) Dyslipidemia (Acute) Past Medical History Medical History Panic disorder OCD (obsessive compulsive disorder) MDD (major depressive disorder), recurrent severe, without psychosis Major depressive disorder Arthritis Panic attacks Osteoporosis PTSD (post-traumatic stress disorder) ELIAN (generalized anxiety disorder) PAC (premature atrial contraction) History of anxiety Dyslipidemia Osteoarthritis (arthritis due to wear and tear of joints) Diverticulitis Essential hypertension Hyperkalemia Depression Functional capacity: independent ambulation Patient : No Family History Family History Mother Dementia Father No problems noted. Family history of problems with anesthesia: No Surgical History Surgical History Hx of tonsillectomy Hx of tubal ligation History of total right knee replacement Hx of colonoscopy History of carpal tunnel release History of Problems with Anesthesia: No Social History Social History Household Members: Spouse Housing: House Are you a primary behavioral health care coordinator to a significant other at home: No Do you presently have visiting nurse or other home services: No Unable to assess alcohol history related to: Unable to respond Alcohol intake: never Comment: 1:1 sitter Patient Tobacco Use Status: Never used Tobacco e-Cigarette/Vaping Use: Never Used Second Hand Smoke Exposure: No Substance Use Type: Marijuana Advance Directives Date on File: 10/11/24 service: No Current occupational status: retired Current occupation: Right Handed Sexual orientation: Straight/Heterosexual Cognitive needs: No Hearing needs: No Vision needs: No Meds Allergies Allergy/AdvReac Type Severity Reaction Status Date / Time No Known Allergies Allergy Verified 10/10/24 16:55 [No Known Allergies*] Active Medications: Current Medications Naloxone HCl (Naloxone Hcl 0.4 Mg/Ml Vial) 0.04 mg IVPUSH Q5M PRN PRN Reason: Excessive sedation or RR < 8 Home Medications ?Medication ?Instructions ?Recorded ?Confirmed ?Last Taken ?Type multivitamin 1 tab PO DAILY 01/11/24 10/16/24 04/20/24 History pravastatin 20 mg tablet 20 mg PO DAILY 10/16/24 10/16/24 Unknown History Exam Height,Weight and Vital Signs: Height 5 ft 7 in Weight 70.4 kg Last Vital Signs Temp 98.1 F 11/29/24 07:50 Pulse 74 11/29/24 08:16 Resp 16 11/29/24 08:16 BP 136/72 11/29/24 08:16 Pulse Ox 93 11/29/24 08:16 O2 Del Method Room Air 11/29/24 08:16 O2 Flow Rate 2 11/29/24 08:05 Airway Mallampati Class: II TM Dist: >3cm Neck ROM: Full Heart: RRR Lungs: CTA Assessment and Plan Assessment Anesthesia Assessment: Anesthesia Plan Discussed and Chart Reviewed Final Anesthetic Review Family History of Problems with Anesthesia: No History of Problems with Anesthesia: No ASA Class: III Final Preanesthetic Review: Meds/Allgs Chart Reviewed, Consent Obtained/Reviewed and Anes Risks/Benef Reviewed Patient Risk: Low Procedure Risk: Low Anesthetic Plan Anesthetic Plan: GA Disposition: Standard PACU
== END 2024-11-29 08:56 | disposition home or self-care (01) ==
PROVIDERS: PCP Student in an Organized Health Care Education/Training Program; Visit Provider Psychiatry & Neurology Psychiatry
PROC: (CPT 90870; principal; 2024-11-29 07:30)
DX: F33.2 Major depressive disorder, recurrent severe without psychotic features (principal); F41.1 Generalized anxiety disorder; F42.9 Obsessive-compulsive disorder, unspecified; F41.0 Panic disorder [episodic paroxysmal anxiety]; I10 Essential (primary) hypertension; I49.1 Atrial premature depolarization; E78.5 Hyperlipidemia, unspecified; E87.5 Hyperkalemia; M81.0 Age-related osteoporosis without current pathological fracture; Z79.899 Other long term (current) drug therapy
CPT/HCPCS: 90870; J0330; J1920; J2250; J2405

== ENCOUNTER → 2024-11-29 05:50 | Outpatient (BNV) | payer MEDICARE, OTHER, SELFPAY | PROVIDERS: PCP Student in an Organized Health Care Education/Training Program; Visit Provider Psychiatry & Neurology Psychiatry | DX: F33.3 Major depressive disorder, recurrent, severe with psychotic symptoms (principal) | CPT/HCPCS: 90870 ==

== ENCOUNTER 2024-12-11 05:47 | Day surgery (SDC) | payer MEDICARE, OTHER, SELFPAY ==
[2024-12-11 06:35] VITALS: BP 131/69; PULSE 61; RESP 16; TEMP 36.5; O2SAT 95; BMI 24.3
--- NOTE | 2024-12-11 06:49 | HO.ANESPROP2 ---
[facility] [place] Active Problems Active Problems: All Active Problems Overdose (Acute) S/P total knee arthroplasty (Acute) OCD (obsessive compulsive disorder) (Acute) Chronic insomnia (Acute) Status post total left knee replacement (Acute) Pre-op evaluation (Acute) Mild recurrent major depression (Acute) Skin lesion (Acute) Primary osteoarthritis of left knee (Acute) Sinusitis (Acute) Osteoporosis (Acute) Well woman exam (Acute) Status post total right knee replacement (Acute) Palpitations (Acute) Hypercalcemia (Acute) PAC (premature atrial contraction) (Acute) Primary osteoarthritis of right knee (Acute) Essential hypertension (Acute) Dyslipidemia (Acute) Past Medical History Medical History Panic disorder OCD (obsessive compulsive disorder) MDD (major depressive disorder), recurrent severe, without psychosis Major depressive disorder Arthritis Panic attacks Osteoporosis PTSD (post-traumatic stress disorder) ELIAN (generalized anxiety disorder) PAC (premature atrial contraction) History of anxiety Dyslipidemia Osteoarthritis (arthritis due to wear and tear of joints) Diverticulitis Essential hypertension Hyperkalemia Depression Family History Family History Mother Dementia Father No problems noted. Family history of problems with anesthesia: No Surgical History Surgical History Hx of tonsillectomy Hx of tubal ligation History of total right knee replacement Hx of colonoscopy History of carpal tunnel release History of Problems with Anesthesia: No Social History Social History Household Members: Spouse Housing: House Are you a primary home care liaison to a significant other at home: No Do you presently have visiting nurse or other home services: No Unable to assess alcohol history related to: Unable to respond Alcohol intake: never Comment: 1:1 sitter Patient Tobacco Use Status: Never used Tobacco e-Cigarette/Vaping Use: Never Used Second Hand Smoke Exposure: No Substance Use Type: Marijuana Advance Directives: No Advance Directives Information Provided: Yes Advance Directives Date on File: 10/11/24 service: No Current occupational status: retired Current occupation: Right Handed Sexual orientation: Straight/Heterosexual Cognitive needs: No Hearing needs: No Vision needs: No Meds Allergies Allergy/AdvReac Type Severity Reaction Status Date / Time No Known Allergies Allergy Verified 10/10/24 16:55 [No Known Allergies*] Active Medications: Current Medications Lactated Ringer's (Lr) 1,000 mls @ 50 mls/hr IVCONT .Q20H HARESH Home Medications ?Medication ?Instructions ?Recorded ?Confirmed ?Last Taken ?Type multivitamin 1 tab PO DAILY 01/11/24 10/16/24 04/20/24 History pravastatin 20 mg tablet 20 mg PO DAILY 10/16/24 10/16/24 Unknown History Exam Height,Weight and Vital Signs: Height 5 ft 7 in Weight 70.307 kg Last Vital Signs Temp 97.7 F 12/11/24 06:35 Pulse 61 12/11/24 06:35 Resp 16 12/11/24 06:35 BP 131/69 12/11/24 06:35 Pulse Ox 95 12/11/24 06:35 O2 Del Method Room Air 12/11/24 06:35 Airway Mallampati Class: II TM Dist: >3cm Neck ROM: Full Heart: rrr Lungs: cta Assessment and Plan Assessment Anesthesia Assessment: Anesthesia Plan Discussed and Chart Reviewed Final Anesthetic Review Family History of Problems with Anesthesia: No History of Problems with Anesthesia: No NPO: Yes ASA Class: III Final Preanesthetic Review: No Changes in Pt Med Stat, Meds/Allgs Chart Reviewed and Consent Obtained/Reviewed Patient Risk: Intermediate Procedure Risk: Intermediate Anesthetic Plan Anesthetic Plan: GA Disposition: Standard PACU
--- NOTE | 2024-12-11 07:03 | MHC.SHP ---
Pre-Procedural Eval Section A - 24 Hr Update-Section A only Date of Service: 12/11/24 The patient is an INPATIENT: No Changes since office visit: No Cold of Flu in the past 2 weeks, No New Medical Problems, No Changes in Medication and No Patient answered all questions The patient has been examined within 24 hours of the surgical procedure. The History & Physical has been completed within 30 days and I have reviewed it.: Yes Section B - Complete if H&P > 30 days Chief Complaint: Major depressive disorder, Allergies: Allergies Allergy/AdvReac Type Severity Reaction Status Date / Time No Known Allergies Allergy Verified 10/10/24 16:55 [No Known Allergies*] Plan I have reviewed the history and physical and performed a pertinent physical examination on my patient. No changes have occurred unless specified. Time Spent With Patient Time: Total time managing care of this patient today ____ minutes.
[2024-12-11] MEDS: Lactated Ringers 1,000 ML 50 ML IVCONT (07:04)
[2024-12-11 07:25] VITALS: BP 183/90; PULSE 64; RESP 20; TEMP 36.8; O2SAT 92
--- NOTE | 2024-12-11 07:25 | HO.ECTPROC ---
ECT Procedure Note Diagnosis/Treatment Date of Service: 12/11/24 Diagnosis: Major Depressive Disorder Previous ECT Date: 11/29/24 Current Treatment Number: 10 Treatment: Series Interval Clinical Notes: The patient reports euthymia with better improvement of anixety. No side effects with the previous ECT. ECT done as usual, no complications, woke up well Time: Total time managing care of this patient today __30__ minutes. ECT Settings Device: THYMATRON DGx Electrode Placement: Right Unilateral Program/Pulse Width: 0.50 Energy Percent: 100 Seizure Duration By EEG (in seconds): 31 By Motor Observation (in seconds): 15 Medications Administration General Anesthetic: Etomidate (12) Muscle Relaxant: Succinylcholine (80) Ancillary Medications Anti-emetics: Zofran - Pre ECT Airway Management Airway Management: Bag Mask Ventilation Treatment Recommendations No Changes Recommended: No change Pt Tolerated Procedure w/o Issue: Yes
[2024-12-11 07:30] VITALS: BP 151/84; PULSE 84; RESP 20; O2SAT 94
[2024-12-11 07:35] VITALS: BP 166/87; PULSE 88; RESP 20; O2SAT 93
[2024-12-11 07:40] VITALS: BP 151/80; PULSE 89; RESP 20; O2SAT 92
[2024-12-11 07:55] VITALS: BP 142/83; PULSE 82; RESP 16; TEMP 36.8; O2SAT 94
== END 2024-12-11 08:15 | disposition home or self-care (01) ==
PROVIDERS: PCP Student in an Organized Health Care Education/Training Program; Visit Provider Psychiatry & Neurology Psychiatry
PROC: (CPT 90870; principal; 2024-12-11 07:00)
DX: F33.2 Major depressive disorder, recurrent severe without psychotic features (principal); F42.9 Obsessive-compulsive disorder, unspecified; F41.0 Panic disorder [episodic paroxysmal anxiety]; F41.1 Generalized anxiety disorder; I10 Essential (primary) hypertension; I49.1 Atrial premature depolarization; E78.5 Hyperlipidemia, unspecified; E87.5 Hyperkalemia; M81.0 Age-related osteoporosis without current pathological fracture; Z79.899 Other long term (current) drug therapy
CPT/HCPCS: 90870; J0330; J2405

== ENCOUNTER → 2024-12-11 05:47 | Outpatient (BNV) | payer MEDICARE, OTHER, SELFPAY | PROVIDERS: PCP Student in an Organized Health Care Education/Training Program; Visit Provider Psychiatry & Neurology Psychiatry | DX: F33.3 Major depressive disorder, recurrent, severe with psychotic symptoms (principal) | CPT/HCPCS: 90870 ==

== ENCOUNTER 2025-01-10 05:39 | Day surgery (SDC) | payer MEDICARE, SELFPAY ==
[2025-01-10] VITALS (9 sets, daily range): BP systolic 109–175; BP diastolic 68–98; PULSE 62–108; RESP 15–20; TEMP 36.1–36.3; O2SAT 89–98; BMI 21.1
--- NOTE | 2025-01-10 07:05 | MHC.SHP ---
Pre-Procedural Eval Section A - 24 Hr Update-Section A only Date of Service: 01/10/25 The patient is an INPATIENT: No Changes since office visit: Yes Changes in Medication and Yes Patient answered all questions; No Cold of Flu in the past 2 weeks and No New Medical Problems Section B - Complete if H&P > 30 days Chief Complaint: Major depressive disorder, recurrent, severe with Details of Present Illness: recurrent depression ocd Present Medications: see Short Stay Collaborative assessment Allergies: Allergies Allergy/AdvReac Type Severity Reaction Status Date / Time No Known Allergies Allergy Verified 10/10/24 16:55 [No Known Allergies*] Review of Systems Sugical H&P ROS: Negative: Cardiovascular, Respiratory and Neurological and Yes, Specify: Psychiatric (improved no si ) Exam Surgical H&P Exam: Normal: Heart and Normal: Lungs Exam Comment: 127/68 66 Plan Diagnosis/Plan: Unchanged I have reviewed the history and physical and performed a pertinent physical examination on my patient. No changes have occurred unless specified. Time Spent With Patient Time: Total time managing care of this patient today ____ minutes.
--- NOTE | 2025-01-10 07:08 | HO.ECTPROC ---
ECT Procedure Note Diagnosis/Treatment Date of Service: 01/10/25 Diagnosis: Major Depressive Disorder Previous ECT Date: 11/29/24 Current Treatment Number: 11 Treatment: Series Interval Clinical Notes: The patient reports improved mood but still significant ocd and some depressive sx . on anafranil sees dr alston. no si . no cognitive complaints. Time: Total time managing care of this patient today ____ minutes. ECT Settings Device: THYMATRON DGx Electrode Placement: Right Unilateral Program/Pulse Width: 0.50 Energy Percent: 100 Seizure Duration By EEG (in seconds): 22 Medications Administration General Anesthetic: Etomidate (12) Muscle Relaxant: Succinylcholine (80) Ancillary Medications Anti-emetics: Zofran - Pre ECT Airway Management Airway Management: Bag Mask Ventilation Treatment Recommendations Notes: consider change to bf f/u 2 weeks Pt Tolerated Procedure w/o Issue: Yes
[2025-01-10] MEDS: Lactated Ringers 1,000 ML 100 ML IVCONT (07:21)
--- NOTE | 2025-01-10 07:30 | HO.ANESPROP2 ---
HPI - Anesthesia Eval Consult details Narrative: 69 yo female patient for ECT PMFSH Active Problems Active Problems: All Active Problems Overdose (Acute) S/P total knee arthroplasty (Acute) OCD (obsessive compulsive disorder) (Acute) Chronic insomnia (Acute) Status post total left knee replacement (Acute) Pre-op evaluation (Acute) Mild recurrent major depression (Acute) Skin lesion (Acute) Primary osteoarthritis of left knee (Acute) Sinusitis (Acute) Osteoporosis (Acute) Well woman exam (Acute) Status post total right knee replacement (Acute) Palpitations (Acute) Hypercalcemia (Acute) PAC (premature atrial contraction) (Acute) Primary osteoarthritis of right knee (Acute) Essential hypertension (Acute) Dyslipidemia (Acute) Past Medical History Medical History Panic disorder OCD (obsessive compulsive disorder) MDD (major depressive disorder), recurrent severe, without psychosis Major depressive disorder Arthritis Panic attacks Osteoporosis PTSD (post-traumatic stress disorder) ELIAN (generalized anxiety disorder) PAC (premature atrial contraction) History of anxiety Dyslipidemia Osteoarthritis (arthritis due to wear and tear of joints) Diverticulitis Essential hypertension Hyperkalemia Depression Family History Family History Mother Dementia Father No problems noted. Family history of problems with anesthesia: No Surgical History Surgical History Hx of tonsillectomy Hx of tubal ligation History of total right knee replacement Hx of colonoscopy History of carpal tunnel release History of Problems with Anesthesia: No Social History Social History Household Members: Spouse Housing: House Are you a primary progressive care nurse to a significant other at home: No Do you presently have visiting nurse or other home services: No Unable to assess alcohol history related to: Unable to respond Alcohol intake: never Comment: 1:1 sitter Patient Tobacco Use Status: Never used Tobacco e-Cigarette/Vaping Use: Never Used Second Hand Smoke Exposure: No Substance Use Type: Marijuana Advance Directives: No Advance Directives Information Provided: Yes Advance Directives Date on File: 10/11/24 service: No Current occupational status: retired Current occupation: Right Handed Sexual orientation: Straight/Heterosexual Cognitive needs: No Hearing needs: No Vision needs: No Meds Allergies Allergy/AdvReac Type Severity Reaction Status Date / Time No Known Allergies Allergy Verified 10/10/24 16:55 [No Known Allergies*] Active Medications: Current Medications Lactated Ringer's (Lr) 1,000 mls @ 100 mls/hr IVCONT .Q10H HARESH Last Admin: 01/10/25 07:21 Dose: 100 mls/hr Home Medications ?Medication ?Instructions ?Recorded ?Confirmed ?Last Taken ?Type multivitamin 1 tab PO DAILY 01/11/24 10/16/24 04/20/24 History pravastatin 20 mg tablet 20 mg PO DAILY 10/16/24 10/16/24 Unknown History Exam Height,Weight and Vital Signs: Height 5 ft 7 in Weight 61.235 kg Last Vital Signs Temp 97 F 01/10/25 06:18 Pulse 66 01/10/25 06:18 Resp 18 01/10/25 06:18 BP 127/68 01/10/25 06:18 Pulse Ox 96 01/10/25 06:18 O2 Del Method Room Air 01/10/25 06:18 Airway Mallampati Class: III (Small mouth) TM Dist: >3cm Neck ROM: Full Loose/Missing/Broken Teeth: No Heart: RRR Lungs: CTAB Assessment and Plan Assessment Anesthesia Assessment: Anesthesia Plan Discussed and Chart Reviewed Final Anesthetic Review Family History of Problems with Anesthesia: No History of Problems with Anesthesia: No NPO: Yes ASA Class: III Final Preanesthetic Review: No Changes in Pt Med Stat, Meds/Allgs Chart Reviewed, Consent Obtained/Reviewed and Anes Risks/Benef Reviewed Patient Risk: Intermediate Procedure Risk: Intermediate Anesthetic Plan Anesthetic Plan: GA Disposition: Standard PACU
== END 2025-01-10 09:02 | disposition home or self-care (01) ==
PROVIDERS: PCP Student in an Organized Health Care Education/Training Program; Visit Provider Psychiatry & Neurology Psychiatry
PROC: (CPT 90870; principal; 2025-01-10 07:30)
DX: F33.2 Major depressive disorder, recurrent severe without psychotic features (principal); F42.9 Obsessive-compulsive disorder, unspecified; F41.1 Generalized anxiety disorder; I10 Essential (primary) hypertension; E78.00 Pure hypercholesterolemia, unspecified; E78.1 Pure hyperglyceridemia; I49.1 Atrial premature depolarization; M81.0 Age-related osteoporosis without current pathological fracture; Z79.899 Other long term (current) drug therapy
CPT/HCPCS: 90870; J0330; J2405

== ENCOUNTER → 2025-01-10 05:39 | Outpatient (BNV) | payer MEDICARE, OTHER, SELFPAY | PROVIDERS: PCP Student in an Organized Health Care Education/Training Program; Visit Provider Psychiatry & Neurology Psychiatry | DX: F33.2 Major depressive disorder, recurrent severe without psychotic features (principal) | CPT/HCPCS: 90870 ==

== ENCOUNTER 2025-02-12 05:37 | Day surgery (SDC) | payer MEDICARE, OTHER, SELFPAY ==
--- OUTSIDE RECORDS SUMMARY | 2025-01-31 17:10 | XMS_ITS | Encounter Summary ---
[facility] Address [address] [place] [address] Care Team Providers Care Warehousing Technician Name Role Phone Community, Pcp Primary Care Provider Unavailabl e Reason for Visit * Reason Comments E-prescribe Rx Request Encounter Details Date Type Department Care Team Description 12/05/2019 Refill Adult Medicine [address] [id number] Darshan Frye MD E-prescribe Rx Request Social History Tobacco Use Types Packs/Day Years Used Date Smoking Tobacco: Never Smokeless Tobacco: Never Alcohol Use Standard Drinks/Week Comments Yes 0 (1 standard drink = 0.6 oz pur e alcohol) occasionally Sex Assigned at Date Recorded Not on file documented as of this encounter Miscellaneous Notes * Telephone Encounter - Conner De Los Santos M.A. - 12/05/2019 4:10 PM EST Faxed to pharmacy * Telephone Encounter - Elaine Baugh M.A. - 12/05/2019 11:55 AM EST Julian 05/02/2019 No f/u appt 30 day supply pending approval Lab Results Component Value Date CHOL 164 06/05/2019 LDL 93 06/05/2019 HDL 46 06/05/2019 TRIG 128 06/05/2019 SGOT 19 06/05/2019 SGPT 36 06/05/2019 * Telephone Encounter - Olivia Childers - 12/05/2019 11:34 AM EST Patient would like script to be: E-PRESCRIBED/FAXED TO PHARMACY WHEN WAS THE PATIENT'S LAST APPOINTMENT IN ADULT MEDICINE? 07/12/19 WHEN WAS THE LAST TIME THE PATIENT SAW THEIR PCP? 05/02/19 Does patient have an upcoming appointment? Will call to book (THE MEDICATION REQUESTED IS ON THE MED LIST ABOVE) All of the medications requested were on the CURRENT MEDS list Did you check the Pharmacy information above?: YES Patient wants: 90 -day supply Is this a mail order prescription request ? NO If the refill is from a FAXED refill request what is the RX # listed on the fax? N/A Patients current insurance carrier is: Payor: [facility] SELF FUNDED / Plan: [employer] SELF HMO F 1+/$20 / Product Type: HMO [id number] documented in this encounter Plan of Treatment Not on file documented as of this encounter Visit Diagnoses Not on filedocumented in this encounter Care Teams Warehousing Technician Relationship Specialty Start Date End Date Community, Pcp PCP - General Internal Medicine 10/30/19 documented as of this encounter
--- OUTSIDE RECORDS SUMMARY | 2025-01-31 17:10 | XMS_ITS | Encounter Summary ---
Author Organization [facility] Address [address] [place] [address] Care Team Providers Care Steel Post Installer Supervisor Name Role Phone Darshan Frye MD Primary Care Provider Wade Mcconnell, Pcp Primary Care Provider Zakia lópez Encounter Details Date Type Department Care Team Description 08/15/2018 Maintenance Supervisor Report Medical Records [address] [place] [address] Cliff Clark Social History Tobacco Use Types Packs/Day Years Used Date Smoking Tobacco: Never Smokeless Tobacco: Never Alcohol Use Standard Drinks/Week Comments Yes 0 (1 standard drink = 0.6 oz pur e alcohol) occasionally Sex Assigned at Date Recorded Not on file documented as of this encounter Plan of Treatment Not on file documented as of this encounter Visit Diagnoses Not on filedocumented in this encounter Care Teams Steel Post Installer Supervisor Relationship Specialty Start Date End Date Darshan Frye MD PCP - General Internal Medicine 03/26/15 10/29/19 [place], Pcp PCP - General Internal Medicine 10/30/19 documented as of this encounter
--- OUTSIDE RECORDS SUMMARY | 2025-01-31 17:10 | XMS_ITS | Encounter Summary ---
[facility] Address [address] [place] [address] Care Team Providers Care Traffic Investigator Name Role Phone Darshan Frye MD Primary Care Provider Wade Mcconnell, Pcp Primary Care Provider Unavailabl e Reason for Visit * Reason Comments E-prescribe Rx Request Encounter Details Date Type Department Care Team Description 12/07/2018 Refill Adult Medicine [address] [address] Darshan Frye MD E-prescribe Rx Request Social History Tobacco Use Types Packs/Day Years Used Date Smoking Tobacco: Never Smokeless Tobacco: Never Alcohol Use Standard Drinks/Week Comments Yes 0 (1 standard drink = 0.6 oz pur e alcohol) occasionally Sex Assigned at Date Recorded Not on file documented as of this encounter Miscellaneous Notes * Telephone Encounter - Ayana Causey M.A. - 12/08/2018 9:28 AM EST Lab Results Component Value Date CHOL 182 06/15/2018 LDL 91 06/15/2018 HDL 49 06/15/2018 TRIG 213 06/15/2018 * Telephone Encounter - Olivia Liseth - 12/08/2018 8:46 AM EST Patient would like script to be: E-PRESCRIBED/FAXED TO PHARMACY WHEN WAS THE PATIENT'S LAST APPOINTMENT IN ADULT MEDICINE? 10/26/17 WHEN WAS THE LAST TIME THE PATIENT SAW THEIR PCP? 06/15/18 Does patient have an upcoming appointment? Yes 04/25/19 (THE MEDICATION REQUESTED IS ON THE MED LIST ABOVE) All of the medications requested were on the CURRENT MEDS list Did you check the Pharmacy information above?: YES Patient wants: 90 -day supply Is this a mail order prescription request ? YES If the refill is from a FAXED refill request what is the RX # listed on the fax? N/A Patients current insurance carrier is: Payor: [facility] SELF FUNDED / Plan: [facility] SELF HMO F 1+/$20 / Product Type: HMO [id number] documented in this encounter Plan of Treatment Not on file documented as of this encounter Visit Diagnoses Not on filedocumented in this encounter Care Teams Traffic Investigator Relationship Specialty Start Date End Date Darshan Frye MD PCP - General Internal Medicine 03/26/15 10/29/19 Kenneth Mcconnell PCP - General Internal Medicine 10/30/19 documented as of this encounter
--- OUTSIDE RECORDS SUMMARY | 2025-01-31 17:10 | XMS_ITS | Encounter Summary ---
Author Organization [facility] Address [address] [place] [address] Care Team Providers Care Nursing Director Name Role Phone Darshan Frye MD Primary Care Provider Wade Mcconnell, Pcp Primary Care Provider Unavailabl e Reason for Visit * Reason Onset Date Comments Post ER Outreach 11/01/2017 [facility] ER discharg e 10/29/2017 Encounter Details Date Type Department Care Team Description 11/01/2017 Telephone Adult Medicine - [address] [address] Darshan Frye MD Post ER Outreach ([facility] ER discharge 10/29/2017) Social History Tobacco Use Types Packs/Day Years Used Date Smoking Tobacco: Never Smokeless Tobacco: Never Alcohol Use Standard Drinks/Week Comments Yes 0 (1 standard drink = 0.6 oz pur e alcohol) occasionally Sex Assigned at Date Recorded Not on file documented as of this encounter Miscellaneous Notes * Telephone Encounter - Noemi Fang M.A. - 11/01/2017 10:58 AM EST EMERGENCY DEPARTMENT/HOSPITAL DISCHARGE FOLLOW-UP CONTACT: Did they go to the ER? : Yes Which ER did they go to? : [facility] Why did the patient go to the ER? Abdominal pain / fever Was the patient admitted? : No. ER/Hospital discharge plan reviewed: Yes , patient taking medication and will follow up with pcp. How is the patient feeling? : getting better Any concerns or information needed? no Disposition? : Appointment made for patient at [facility] in 5 day(s) Comments: Pt states that she is feeling better. Noemi Fang M.A. documented in this encounter Plan of Treatment Not on file documented as of this encounter Visit Diagnoses Not on filedocumented in this encounter Care Teams Nursing Director Relationship Specialty Start Date End Date Darshan Frye MD PCP - General Internal Medicine 03/26/15 10/29/19 [facility], Pcp PCP - General Internal Medicine 10/30/19 documented as of this encounter
--- OUTSIDE RECORDS SUMMARY | 2025-01-31 17:10 | XMS_ITS | Encounter Summary ---
Author Organization [facility] [employer] [facility] Address [address] [place] [address] Care Team Providers Care Road Cutter Name Role Phone Darshan Frye MD Primary Care Provider Wade Mcconnell, Pcp Primary Care Provider Zakia lópez Encounter Details Date Type Department Care Team Description 12/01/2018 A/C Tech Report Medical Records [address] [place] [address] Cliff Clark Social History Tobacco Use Types [...] on filedocumented in this encounter Care Teams Road Cutter Relationship Specialty Start Date End Date Darshan Frye MD PCP - General Internal Medicine 03/26/15 10/29/19 [place], Pcp PCP - General Internal Medicine 10/30/19 documented as of this encounter
--- OUTSIDE RECORDS SUMMARY | 2025-01-31 17:10 | XMS_ITS | Encounter Summary ---
[facility] Address [address] [place] [address] Care Team Providers Care Combustion Engineer Name Role Phone Darshan Frye MD Primary Care Provider Wade Mcconnell, Pcp Primary Care Provider Unavailabl e Reason for Visit * Reason Onset Date Comments refill request 06/29/2019 Encounter Details Date Type Department Care Team Description 06/29/2019 Refill Adult Medicine [address] [address] Darshan Frye MD refill request Social History Tobacco Use Types Packs/Day Years Used Date Smoking Tobacco: Never Smokeless Tobacco: Never Alcohol Use Standard Drinks/Week Comments Yes 0 (1 standard drink = 0.6 oz pur e alcohol) occasionally Sex Assigned at Date Recorded Not on file documented as of this encounter Miscellaneous Notes * Telephone Encounter - Ayana Causey M.A. - 06/29/2019 2:57 PM EDT Lab Results Component Value Date NA 140 06/05/2019 K 4.5 06/05/2019 CO2 27 06/05/2019 CL 106 06/05/2019 BUN 20 06/05/2019 CREAT 0.67 06/05/2019 GLU 104 06/05/2019 CA 8.9 06/05/2019 GFR > 60 06/05/2019 * Telephone Encounter - Olivia Liseth - 06/29/2019 9:31 AM EDT Patient would like script to be: E-PRESCRIBED/FAXED TO PHARMACY WHEN WAS THE PATIENT'S LAST APPOINTMENT IN ADULT MEDICINE? 05/02/19 WHEN WAS THE LAST TIME THE PATIENT SAW THEIR PCP? Same as above Does patient have an upcoming appointment? Yes 11/01/2019 (THE MEDICATION REQUESTED IS ON THE MED LIST ABOVE) All of the medications requested were on the CURRENT MEDS list Did you check the Pharmacy information above?: YES Patient wants: 30 -day supply Is this a mail order prescription request ? NO If the refill is from a FAXED refill request what is the RX # listed on the fax? N/A Patients current insurance carrier is: Payor: [facility] SELF FUNDED / Plan: [facility] SELF O F 1+/$20 / Product Type: HMO [id number] documented in this encounter Plan of Treatment Not on file documented as of this encounter Visit Diagnoses Not on filedocumented in this encounter Care Teams Combustion Engineer Relationship Specialty Start Date End Date Darshan Frye MD PCP - General Internal Medicine 03/26/15 10/29/19 Kenneth Mcconnell PCP - General Internal Medicine 10/30/19 documented as of this encounter
--- OUTSIDE RECORDS SUMMARY | 2025-01-31 17:10 | XMS_ITS | Encounter Summary ---
[facility] Address [address] [place] [address] Care Team Providers Care Bowling Alley Mechanic Name Role Phone Darshan Frye MD Primary Care Provider Wade Mcconnell, Pcp Primary Care Provider Unavailabl e Reason for Visit * Reason Comments E-prescribe Rx Request Encounter Details Date Type Department Care Team Description 09/15/2017 Refill Adult Medicine [address] [address] Darshan Frye MD E-prescribe Rx Request Social History Tobacco Use Types Packs/Day Years Used Date Smoking Tobacco: Never Smokeless Tobacco: Never Alcohol Use Standard Drinks/Week Comments Yes 0 (1 standard drink = 0.6 oz pur e alcohol) occasionally Sex Assigned at Date Recorded Not on file documented as of this encounter Miscellaneous Notes * Telephone Encounter - Kadie Muñoz M.A. - 09/16/2017 10:29 AM EST Lab Results Component Value Date CHOL 170 08/10/2017 LDL 97 08/10/2017 HDL 57 08/10/2017 TRIG 78 08/10/2017 SGOT 23 08/10/2017 SGPT 29 08/10/2017 * Telephone Encounter - Aysha Watson - 09/15/2017 9:57 AM EST Patient would like script to be: E-PRESCRIBED/FAXED TO PHARMACY WHEN WAS THE PATIENT'S LAST APPOINTMENT IN ADULT MEDICINE? 08/26/17 WHEN WAS THE LAST TIME THE PATIENT SAW THEIR PCP? 08/09/17 Does patient have an upcoming appointment? No-unable to reach left [facility] to call for appointment due to refill request. Appt due Nov 2017 (THE MEDICATION REQUESTED IS ON THE MED LIST ABOVE) All of the medications requested were on the CURRENT MEDS list Did you check the Pharmacy information above?: YES Patient wants: 90 -day supply Is this a mail order prescription request ? NO Patients current insurance carrier is: Payor: [employer] / Plan: [facility] F 1+/$20 / ProductType: HMO [id number] documented in this encounter Plan of Treatment Not on file documented as of this encounter Visit Diagnoses Not on filedocumented in this encounter Care Teams Bowling Alley Mechanic Relationship Specialty Start Date End Date Darshan Frye MD PCP - General Internal Medicine 03/26/15 [facility] 10/30/19 documented as of this encounter
[2025-02-12] VITALS (7 sets, daily range): BP systolic 141–174; BP diastolic 82–96; PULSE 75–122; RESP 18–19; TEMP 36.6–36.8; O2SAT 92–96; BMI 24.3
[2025-02-12] MEDS: Lactated Ringers 1,000 ML 100 ML IVCONT (06:42)
--- NOTE | 2025-02-12 06:58 | MHC.SHP ---
Pre-Procedural Eval Section A - 24 Hr Update-Section A only Date of Service: 02/12/25 The patient is an INPATIENT: No Changes since office visit: Yes Changes in Medication and Yes Patient answered all questions; No Cold of Flu in the past 2 weeks and No New Medical Problems Section B - Complete if H&P > 30 days Chief Complaint: depression Details of Present Illness: recurrent depression ocd has inc missed last tx on anafranil 75 hs no new medical concerns Present Medications: see Short Stay Collaborative assessment Allergies: Allergies Allergy/AdvReac Type Severity Reaction Status Date / Time No Known Allergies Allergy Verified 10/10/24 16:55 [No Known Allergies*] Review of Systems Sugical H&P ROS: Negative: Cardiovascular, Respiratory, Neurological, Gastrointestinal and Musculoskeletal and Yes, Specify: Psychiatric (inc anxiety ocd sx) Exam Surgical H&P Exam: Normal: Heart, Normal: Lungs and Normal: Neurological Exam Comment: 141/82 89 Plan Diagnosis/Plan: Unchanged I have reviewed the history and physical and performed a pertinent physical examination on my patient. No changes have occurred unless specified. Time Spent With Patient Time: Total time managing care of this patient today ____ minutes.
--- NOTE | 2025-02-12 07:00 | HO.ECTPROC ---
ECT Procedure Note Diagnosis/Treatment Date of Service: 02/13/25 Diagnosis: Major Depressive Disorder Previous ECT Date: 01/10/25 Current Treatment Number: 12 Treatment: Series Interval Clinical Notes: The patient reports inc depression anxiety passive si . on anafranil sees dr alston no cognitive complaints. Time: Total time managing care of this patient today _40__ minutes. ECT Settings Device: THYMATRON DGx Electrode Placement: Right Unilateral Program/Pulse Width: 0.50 Energy Percent: 100 Seizure Duration By EEG (in seconds): 49 Medications Administration General Anesthetic: Etomidate (12) Muscle Relaxant: Succinylcholine (80) Ancillary Medications Anti-emetics: Zofran - Pre ECT Airway Management Airway Management: Bag Mask Ventilation Treatment Recommendations Notes: Given patient's relapse symptoms will schedule ECT for another this week. Copy to Pts case reviewed with pts daughter Pt Tolerated Procedure w/o Issue: Yes
[2025-02-12] MEDS: ALPRAZolam 0.5 MG TABLET 0.25 MG PO (08:07)
== END 2025-02-12 08:26 | disposition home or self-care (01) ==
PROVIDERS: PCP Student in an Organized Health Care Education/Training Program; Visit Provider Psychiatry & Neurology Psychiatry
PROC: (CPT 90870; principal; 2025-02-12 07:00)
DX: F33.2 Major depressive disorder, recurrent severe without psychotic features (principal); F41.1 Generalized anxiety disorder; F42.9 Obsessive-compulsive disorder, unspecified; I10 Essential (primary) hypertension; I49.1 Atrial premature depolarization; E78.00 Pure hypercholesterolemia, unspecified; M81.0 Age-related osteoporosis without current pathological fracture; Z79.899 Other long term (current) drug therapy
CPT/HCPCS: 90870; J0330; J2405

== ENCOUNTER → 2025-02-12 05:37 | Outpatient (BNV) | payer MEDICARE, OTHER, SELFPAY | PROVIDERS: PCP Student in an Organized Health Care Education/Training Program; Visit Provider Psychiatry & Neurology Psychiatry | DX: F33.2 Major depressive disorder, recurrent severe without psychotic features (principal) | CPT/HCPCS: 90870 ==

== ENCOUNTER 2025-02-16 05:39 | Day surgery (SDC) | payer MEDICARE, OTHER, SELFPAY ==
[2025-02-16] VITALS (7 sets, daily range): BP systolic 115–169; BP diastolic 78–106; PULSE 75–101; RESP 17–21; TEMP 36.6–37; O2SAT 93–95; BMI 24.3
[2025-02-16] MEDS: Lactated Ringers 1,000 ML 50 ML IVCONT (06:26)
--- NOTE | 2025-02-16 06:41 | HO.ANESPROP2 ---
[facility] Active Problems Active Problems: All Active Problems Overdose (Acute) S/P total knee arthroplasty (Acute) OCD (obsessive compulsive disorder) (Acute) Chronic insomnia (Acute) Status post total left knee replacement (Acute) Pre-op evaluation (Acute) Mild recurrent major depression (Acute) Skin lesion (Acute) Primary osteoarthritis of left knee (Acute) Sinusitis (Acute) Osteoporosis (Acute) Well woman exam (Acute) Status post total right knee replacement (Acute) Palpitations (Acute) Hypercalcemia (Acute) PAC (premature atrial contraction) (Acute) Primary osteoarthritis of right knee (Acute) Essential hypertension (Acute) Dyslipidemia (Acute) Past Medical History Medical History Panic disorder OCD (obsessive compulsive disorder) MDD (major depressive disorder), recurrent severe, without psychosis Major depressive disorder Arthritis Panic attacks Osteoporosis PTSD (post-traumatic stress disorder) ELIAN (generalized anxiety disorder) PAC (premature atrial contraction) History of anxiety Dyslipidemia Osteoarthritis (arthritis due to wear and tear of joints) Diverticulitis Essential hypertension Hyperkalemia Depression Family History Family History Mother Dementia Father No problems noted. Family history of problems with anesthesia: No Surgical History Surgical History Hx of tonsillectomy Hx of tubal ligation History of total right knee replacement Hx of colonoscopy History of carpal tunnel release History of Problems with Anesthesia: No Social History Social History Household Members: Spouse Housing: House Are you a primary patient care technician instructor to a significant other at home: No Do you presently have visiting nurse or other home services: No Unable to assess alcohol history related to: Unable to respond Alcohol intake: never Comment: 1:1 sitter Patient Tobacco Use Status: Never used Tobacco e-Cigarette/Vaping Use: Never Used Second Hand Smoke Exposure: No Use of substances other than those prescribed or required for medical reasons: No Substance Use Type: Marijuana Have you been hit, kicked, punched, or otherwise hurt by someone within the past year? If so, by whom?: No Advance Directives: No Advance Directives Information Provided: Yes Advance Directives Date on File: 10/11/24 service: No Current occupational status: retired Current occupation: Right Handed Sexual orientation: Straight/Heterosexual Cognitive needs: No Hearing needs: No Vision needs: No Meds Allergies Allergy/AdvReac Type Severity Reaction Status Date / Time No Known Allergies Allergy Verified 02/16/25 06:17 [No Known Allergies*] Active Medications: Current Medications Lactated Ringer's (Lr) 1,000 mls @ 50 mls/hr IVCONT .Q20H HARESH Last Admin: 02/16/25 06:26 Dose: 50 mls/hr Home Medications ?Medication ?Instructions ?Recorded ?Confirmed ?Last Taken ?Type multivitamin 1 tab PO DAILY 01/11/24 10/16/24 02/15/25 History pravastatin 20 mg tablet 20 mg PO DAILY 10/16/24 10/16/24 02/15/25 History Exam Height,Weight and Vital Signs: Height 5 ft 7 in Weight 70.307 kg Last Vital Signs Temp 98.6 F 02/16/25 06:21 Pulse 88 02/16/25 06:21 Resp 17 02/16/25 06:21 BP 115/78 02/16/25 06:21 Pulse Ox 95 02/16/25 06:21 O2 Del Method Room Air 02/16/25 06:21 Airway Mallampati Class: II TM Dist: >3cm Neck ROM: Full Heart: rrr Lungs: cta Assessment and Plan Assessment Anesthesia Assessment: Anesthesia Plan Discussed and Chart Reviewed Final Anesthetic Review Family History of Problems with Anesthesia: No History of Problems with Anesthesia: No NPO: Yes ASA Class: III Final Preanesthetic Review: No Changes in Pt Med Stat, Meds/Allgs Chart Reviewed and Consent Obtained/Reviewed Patient Risk: Intermediate Procedure Risk: Intermediate Anesthetic Plan Anesthetic Plan: GA Disposition: Standard PACU
--- NOTE | 2025-02-16 07:08 | MHC.SHP ---
Pre-Procedural Eval Section A - 24 Hr Update-Section A only Date of Service: 02/16/25 Section B - Complete if H&P > 30 days Chief Complaint: depression Allergies: Allergies Allergy/AdvReac Type Severity Reaction Status Date / Time No Known Allergies Allergy Verified 02/16/25 06:17 [No Known Allergies*] Exam Surgical H&P Exam: Normal: HEENT, Normal: Extremities, Normal: Skin and Normal: Neurological Plan Diagnosis/Plan: Unchanged I have reviewed the history and physical and performed a pertinent physical examination on my patient. No changes have occurred unless specified. Time Spent With Patient Time: Total time managing care of this patient today _30___ minutes.
--- NOTE | 2025-02-16 08:17 | HO.ECTPROC ---
ECT Procedure Note Diagnosis/Treatment Date of Service: 02/16/25 Diagnosis: Other (per chart, OCD) Previous ECT Date: 02/12/25 Treatment: Maintenance Interval Clinical Notes: recent decompensation requiring more frequent treatments. Time: Total time managing care of this patient today __30__ minutes. ECT Settings Device: THYMATRON DGx Electrode Placement: Right Unilateral Program/Pulse Width: 0.50 Energy Percent: 100 Seizure Duration By EEG (in seconds): 33 Medications Administration General Anesthetic: Etomidate (12) Muscle Relaxant: Succinylcholine (80) Ancillary Medications Anti-emetics: Zofran - Pre ECT Airway Management Airway Management: Bag Mask Ventilation Treatment Recommendations No Changes Recommended: No change
== END 2025-02-16 08:33 | disposition home or self-care (01) ==
PROVIDERS: PCP Student in an Organized Health Care Education/Training Program; Visit Provider Psychiatry & Neurology Psychiatry
PROC: (CPT 90870; principal; 2025-02-16 07:00)
DX: F33.2 Major depressive disorder, recurrent severe without psychotic features (principal); F41.1 Generalized anxiety disorder; F42.9 Obsessive-compulsive disorder, unspecified; I10 Essential (primary) hypertension; I49.1 Atrial premature depolarization; M81.0 Age-related osteoporosis without current pathological fracture; E78.00 Pure hypercholesterolemia, unspecified; Z79.899 Other long term (current) drug therapy; Z98.890 Other specified postprocedural states
CPT/HCPCS: 90870; J0330; J2405

== ENCOUNTER → 2025-02-16 05:39 | Outpatient (BNV) | payer MEDICARE, OTHER, SELFPAY | PROVIDERS: PCP Student in an Organized Health Care Education/Training Program; Visit Provider Psychiatry & Neurology Psychiatry | DX: F33.2 Major depressive disorder, recurrent severe without psychotic features (principal) | CPT/HCPCS: 90870 ==

== ENCOUNTER 2025-02-26 06:07 | Day surgery (SDC) | payer MEDICARE, OTHER, SELFPAY ==
--- OUTSIDE RECORDS SUMMARY | 2025-02-16 08:50 | XMS_ITS | Encounter Summary ---
Author Organization [facility] Address [address] [place] [address] Care Team Providers Care Lump Room Supervisor Name Role Phone Darshan Frye MD Primary Care Provider Wade Mcconnell, Pcp Primary Care Provider Zakia lópez Encounter Details Date Type Department Care Team Description 08/15/2018 Mass Spec Report Medical Records [address] [place] [address] Cliff Clark Social History Tobacco Use Types [...] on filedocumented in this encounter Care Teams Lump Room Supervisor Relationship Specialty Start Date End Date Darshan Frye MD PCP - General Internal Medicine 03/26/15 10/29/19 [facility], Pcp PCP - General Internal Medicine 10/30/19 documented as of this encounter
--- OUTSIDE RECORDS SUMMARY | 2025-02-16 08:50 | XMS_ITS | Encounter Summary ---
Author Organization [facility] Address [address] [place] [address] Care Team Providers Care Home Care Specialist Name Role Phone Darshan Frye MD Primary Care Provider Wade Mcconnell, Pcp Primary Care Provider Unavailabl e Reason for Visit * Reason Onset Date Comments refill request 06/29/2019 Encounter Details Date Type Department Care Team Description 06/29/2019 Refill Adult Medicine [address] [address] Darshan Frye MD refill request Social History [...] Patients current insurance carrier is: Payor: [facility] SELF FUNDED / Plan: [facility] SELF O F 1+/$20 / Product Type: HMO [id number] documented in this encounter Plan of Treatment Not on file documented as of this encounter Visit Diagnoses Not on filedocumented in this encounter Care Teams Home Care Specialist Relationship Specialty Start Date End Date Darshan Frye MD PCP - General Internal Medicine 03/26/15 10/29/19 Kenneth Mcconnell PCP - General Internal Medicine 10/30/19 documented as of this encounter
--- OUTSIDE RECORDS SUMMARY | 2025-02-16 08:50 | XMS_ITS | Encounter Summary ---
Author Organization [facility] Address [address] [place] [address] Care Team Providers Care Compliance Consultant Name Role Phone Darshan Frye MD Primary Care Provider Wade Mcconnell, Pcp Primary Care Provider Zakia lópez Encounter Details Date Type Department Care Team Description 03/28/2015 Transfer Records Medical Records [address] [place] [address] Abstract, Provider Social History Tobacco Use Types Packs/Day Years Used Date Smoking Tobacco: Never Smokeless Tobacco: Never Alcohol Use Standard Drinks/Week Comments No 0 (1 standard drink = 0.6 oz pur e alcohol) Sex Assigned at Date Recorded Not on file documented as of this encounter Plan of Treatment Not on file documented as of this encounter Visit Diagnoses Not on filedocumented in this encounter Care Teams Compliance Consultant Relationship Specialty Start Date End Date Darshan Frye MD PCP - General Internal Medicine 03/26/15 10/29/19 [facility], Pcp PCP - General Internal Medicine 10/30/19 documented as of this encounter
--- OUTSIDE RECORDS SUMMARY | 2025-02-16 08:50 | XMS_ITS | Encounter Summary ---
[facility] Address [address] [place] [address] Care Team Providers Care Driver'S License Reviewing Officer Name Role Phone Darshan Frye MD Primary Care Provider Wade Mcconnell, Pcp Primary Care Provider Unavailabl e Reason for Visit * Reason Comments E-prescribe Rx Request Encounter Details Date Type Department Care Team Description 09/15/2017 Refill Adult Medicine [address] [address] Darshan Frye MD E-prescribe Rx Request Social [...] an upcoming appointment? No-[facility] due to refill request. Appt due Nov 2017 (THE MEDICATION REQUESTED IS ON THE MED LIST ABOVE) All of the medications requested were on the CURRENT MEDS list Did you check the Pharmacy information above?: YES Patient wants: 90 -day supply Is this a mail order prescription request ? NO Patients current insurance carrier is: Payor: [employer] [place] / Plan: [facility] F 1+/$20 / ProductType: HMO [id number] documented in this encounter Plan of Treatment Not on file documented as of this encounter Visit Diagnoses Not on filedocumented in this encounter Care Teams Driver'S License Reviewing Officer Relationship Specialty Start Date End Date Darshan Frye MD PCP - General Internal Medicine 03/26/15 [facility] - [facility] 10/30/19 documented as of this encounter
--- OUTSIDE RECORDS SUMMARY | 2025-02-16 08:50 | XMS_ITS | Encounter Summary ---
Author Organization [facility] Address [address] [place] [address] Care Team Providers Care Intermission Coordinator Name Role Phone Ganesh Enciso Primary Care Provider Darshan Mancia MD Primary Care Provider [facility], Pcp Primary Care Provider Zakia lópez Encounter Details Date Type Department Care Team Description 01/10/2015 Release of Information Medical Records [address] [place] [id number] Abstract, Provider Social History Tobacco Use Types Packs/Day Years Used Date Smoking Tobacco: Never Assessed Sex Assigned at Date Recorded Not on file documented as of this encounter Plan of Treatment Not on file documented as of this encounter Visit Diagnoses Not on filedocumented in this encounter Care Teams Intermission Coordinator Relationship Specialty Start Date End Date Ganesh Enciso PCP - General Internal Medicine 01/01/15 03/25/15 Darshan Frye MD PCP - General Internal Medicine 03/26/15 [facility] PCP - General Internal Medicine 10/30/19 documented as of this encounter
--- OUTSIDE RECORDS SUMMARY | 2025-02-16 08:50 | XMS_ITS | Encounter Summary ---
Author Organization [facility] Address [address] [place] [address] Care Team Providers Care Supervisor Concrete Stone Fabricating Name Role Phone Darshan Frye MD Primary Care Provider Wade Mcconnell, Pcp Primary Care Provider Zakia lópez Encounter Details Date Type Department Care Team Description 03/15/2019 Fiberglass Boat Builder Report Medical Records [address] [place] [address] Rusty Jacques MD [address] [place] [address] [place] [address] Social History Tobacco Use Types Packs/Day Years [...] on filedocumented in this encounter Care Teams Supervisor Concrete Stone Fabricating Relationship Specialty Start Date End Date Darshan Frye MD PCP - General Internal Medicine 03/26/15 10/29/19 [facility], Pcp PCP - General Internal Medicine 10/30/19 documented as of this encounter
--- OUTSIDE RECORDS SUMMARY | 2025-02-16 08:50 | XMS_ITS | Encounter Summary ---
Author Organization [facility] Address [address] [place] [address] Care Team Providers Care Home Care Giver Name Role Phone Darshan Frye MD Primary Care Provider Wade Mcconnell, Pcp Primary Care Provider Unavailabl e Reason for Visit * Reason Comments E-prescribe Rx Request Encounter Details Date Type Department Care Team Description 12/07/2018 Refill Adult Medicine [address] [address] Darshan Frye MD E-prescribe Rx Request Social [...] N/A Patients current insurance carrier is: Payor: [facility] SELF FUNDED / Plan: [facility] SELF HMO F 1+/$20 / Product Type: HMO [id number] documented in this encounter Plan of Treatment Not on file documented as of this encounter Visit Diagnoses Not on filedocumented in this encounter Care Teams Home Care Giver Relationship Specialty Start Date End Date Darshan Frye MD PCP - General Internal Medicine 03/26/15 10/29/19 Kenneth Mcconnell PCP - General Internal Medicine 10/30/19 documented as of this encounter
--- OUTSIDE RECORDS SUMMARY | 2025-02-16 08:50 | XMS_ITS | Encounter Summary ---
[facility] Organization [facility] Address [address] [place] [address] Care Team Providers Care Waste Disposal Leakage Tester Name Role Phone [facility], Pcp Primary Care Provider Unavailabl e Reason for Visit * Reason Comments E-prescribe Rx Request Encounter Details Date Type Department Care Team Description 12/05/2019 Refill Adult Medicine [address] [id number] Darshan Frye MD E-prescribe Rx Request Social [...] N/A Patients current insurance carrier is: Payor: [facility] SELF FUNDED / Plan: [facility] SELF HMO F 1+/$20 / Product Type: HMO [id number] documented in this encounter Plan of Treatment Not on file documented as of this encounter Visit Diagnoses Not on filedocumented in this encounter Care Teams Waste Disposal Leakage Tester Relationship Specialty Start Date End Date [facility], Pcp PCP - General Internal Medicine 10/30/19 documented as of this encounter
--- OUTSIDE RECORDS SUMMARY | 2025-02-16 08:51 | XMS_ITS | Encounter Summary ---
Author Organization [facility] Address [address] [place] [address] Care Team Providers Care Cement Or Concrete Finishing Supervisor Name Role Phone Darshan Frye MD Primary Care Provider Wade Mcconnell, Pcp Primary Care Provider Unavailabl e Reason for Visit * Reason Onset Date Comments Post ER Outreach 11/01/2017 [facility] [place] 10/29/2017 Encounter Details Date Type Department Care Team Description 11/01/2017 Telephone Adult Medicine - [address] [address] Darshan Frye MD Post ER Outreach ([facility] [place] 10/29/2017) Social History Tobacco Use [...] Which ER did they go to? : [facility] Why did the patient go to the ER? Abdominal pain / fever Was the patient admitted? : No. ER/Hospital discharge plan reviewed: Yes , patient taking medication and will follow up with pcp. How is the patient feeling? : getting better Any concerns or information needed? no Disposition? : Appointment made for patient at [facility] in 5 day(s) Comments: Pt states that she is feeling better. Noemi Fang M.A. documented in this encounter Plan of Treatment Not on file documented as of this encounter Visit Diagnoses Not on filedocumented in this encounter Care Teams Cement Or Concrete Finishing Supervisor Relationship Specialty Start Date End Date Darshan Frye MD PCP - General Internal Medicine 03/26/15 10/29/19 [facility], Pcp PCP - General Internal Medicine 10/30/19 documented as of this encounter
[2025-02-26 06:57] VITALS: BMI 24.3
[2025-02-26 06:58] VITALS: BP 126/71; PULSE 88; RESP 18; TEMP 36.4; O2SAT 93
[2025-02-26] MEDS: Lactated Ringers 1,000 ML 100 ML IVCONT (07:13)
--- NOTE | 2025-02-26 07:32 | P.CONAN_ITS ---
[facility] Active Problems Active Problems: All Active Problems Overdose (Acute) S/P total knee arthroplasty (Acute) OCD (obsessive compulsive disorder) (Acute) Chronic insomnia (Acute) Status post total left knee replacement (Acute) Pre-op evaluation (Acute) Mild recurrent major depression (Acute) Skin lesion (Acute) Primary osteoarthritis of left knee (Acute) Sinusitis (Acute) Osteoporosis (Acute) Well woman exam (Acute) Status post total right knee replacement (Acute) Palpitations (Acute) Hypercalcemia (Acute) PAC (premature atrial contraction) (Acute) Primary osteoarthritis of right knee (Acute) Essential hypertension (Acute) Dyslipidemia (Acute) Past Medical History Medical History Panic disorder OCD (obsessive compulsive disorder) MDD (major depressive disorder), recurrent severe, without psychosis Major depressive disorder Arthritis Panic attacks Osteoporosis PTSD (post-traumatic stress disorder) ELIAN (generalized anxiety disorder) PAC (premature atrial contraction) History of anxiety Dyslipidemia Osteoarthritis (arthritis due to wear and tear of joints) Diverticulitis Essential hypertension Hyperkalemia Depression Family History Family History Mother Dementia Father No problems noted. Family history of problems with anesthesia: No Surgical History Surgical History Hx of tonsillectomy Hx of tubal ligation History of total right knee replacement Hx of colonoscopy History of carpal tunnel release History of Problems with Anesthesia: No Social History Social History Household Members: Spouse Housing: House Are you a primary career development coordinator to a significant other at home: No Do you presently have visiting nurse or other home services: No Unable to assess alcohol history related to: Unable to respond Alcohol intake: never Comment: 1:1 sitter Patient Tobacco Use Status: Never used Tobacco e-Cigarette/Vaping Use: Never Used Second Hand Smoke Exposure: No Substance Use Type: Marijuana Advance Directives: No Advance Directives Information Provided: Yes Advance Directives Date on File: 10/11/24 service: No Current occupational status: retired Current occupation: Right Handed Sexual orientation: Straight/Heterosexual Cognitive needs: No Hearing needs: No Vision needs: No Meds Allergies Allergy/AdvReac Type Severity Reaction Status Date / Time No Known Allergies Allergy Verified 02/16/25 06:17 [No Known Allergies*] Active Medications: Current Medications Lactated Ringer's (Lr) 1,000 mls @ 100 mls/hr IVCONT .Q10H HARESH Last Admin: 02/26/25 07:13 Dose: 100 mls/hr Home Medications ?Medication ?Instructions ?Recorded ?Confirmed ?Last Taken ?Type multivitamin 1 tab PO DAILY 01/11/24 10/16/24 02/15/25 History pravastatin 20 mg tablet 20 mg PO DAILY 10/16/24 10/16/24 02/15/25 History Exam Height,Weight and Vital Signs: Height 5 ft 7 in Weight 70.307 kg Last Vital Signs Temp 97.6 F 02/26/25 06:58 Pulse 88 02/26/25 06:58 Resp 18 02/26/25 06:58 BP 126/71 02/26/25 06:58 Pulse Ox 93 02/26/25 06:58 O2 Del Method Room Air 02/26/25 06:58 Airway Mallampati Class: II TM Dist: >3cm Neck ROM: Full Loose/Missing/Broken Teeth: No Heart: RRR Lungs: CTA Assessment and Plan Final Anesthetic Review Family History of Problems with Anesthesia: No History of Problems with Anesthesia: No NPO: Yes ASA Class: II Final Preanesthetic Review: Meds/Allgs Chart Reviewed, Consent Obtained/Reviewed and Anes Risks/Benef Reviewed Patient Risk: Low Procedure Risk: Intermediate Anesthetic Plan Anesthetic Plan: GA Disposition: Standard PACU
--- NOTE | 2025-02-26 07:39 | MHC.SHP ---
Pre-Procedural Eval Section A - 24 Hr Update-Section A only Date of Service: 02/26/25 Section B - Complete if H&P > 30 days Chief Complaint: depression Details of Present Illness: depression relieved, anxiety way down Present Medications: None (ambien 5 last night at 8 pm) Allergies: Allergies Allergy/AdvReac Type Severity Reaction Status Date / Time No Known Allergies Allergy Verified 02/16/25 06:17 [No Known Allergies*] Exam Surgical H&P Exam: Normal: Extremities, Normal: Skin and Normal: Neurological Plan Diagnosis/Plan: Unchanged I have reviewed the history and physical and performed a pertinent physical examination on my patient. No changes have occurred unless specified. Time Spent With Patient Time: Total time managing care of this patient today __30__ minutes.
[2025-02-26 07:53] VITALS: BP 164/92; PULSE 88; RESP 18; TEMP 36.6; O2SAT 99
[2025-02-26 07:55] VITALS: BP 172/92; PULSE 94; RESP 18; O2SAT 99
[2025-02-26 08:00] VITALS: BP 143/80; PULSE 93; RESP 18; O2SAT 95
[2025-02-26 08:05] VITALS: BP 138/92; PULSE 88; RESP 17; O2SAT 95
[2025-02-26 08:20] VITALS: BP 128/76; PULSE 88; RESP 17; TEMP 37.4; O2SAT 93
--- NOTE | 2025-02-26 10:14 | HO.ECTPROC ---
ECT Procedure Note Diagnosis/Treatment Date of Service: 02/26/25 Diagnosis: Major Depressive Disorder Previous ECT Date: 02/16/25 Treatment: Maintenance Interval Clinical Notes: reports depression low and anxiety recently much improved Time: Total time managing care of this patient today __30__ minutes. ECT Settings Device: THYMATRON DGx Electrode Placement: Right Unilateral Program/Pulse Width: 0.50 Energy Percent: 100 Seizure Duration By EEG (in seconds): 17 Medications Administration General Anesthetic: Etomidate (12) Muscle Relaxant: Succinylcholine (80) Ancillary Medications Anti-emetics: Zofran - Pre ECT Airway Management Airway Management: Bag Mask Ventilation Treatment Recommendations No Changes Recommended: No change Notes: had ambien night before ECT at 8 pm Pt Tolerated Procedure w/o Issue: Yes
== END 2025-02-26 08:45 | disposition home or self-care (01) ==
PROVIDERS: PCP Student in an Organized Health Care Education/Training Program; Visit Provider Psychiatry & Neurology Psychiatry
PROC: (CPT 90870; principal; 2025-02-26 09:00)
DX: F33.2 Major depressive disorder, recurrent severe without psychotic features (principal); F41.1 Generalized anxiety disorder; F42.9 Obsessive-compulsive disorder, unspecified; I10 Essential (primary) hypertension; I49.1 Atrial premature depolarization; M81.0 Age-related osteoporosis without current pathological fracture; E78.00 Pure hypercholesterolemia, unspecified; Z79.899 Other long term (current) drug therapy; Z98.890 Other specified postprocedural states
CPT/HCPCS: 90870; J0330; J2405

== ENCOUNTER → 2025-02-26 06:07 | Outpatient (BNV) | payer MEDICARE, OTHER, SELFPAY | PROVIDERS: PCP Student in an Organized Health Care Education/Training Program; Visit Provider Psychiatry & Neurology Psychiatry | DX: F33.2 Major depressive disorder, recurrent severe without psychotic features (principal) | CPT/HCPCS: 90870 ==

== ENCOUNTER 2025-03-19 05:42 | Day surgery (SDC) | payer MEDICARE, OTHER, SELFPAY ==
[2025-03-19 06:12] VITALS: BP 142/78; PULSE 84; RESP 18; TEMP 36.7; O2SAT 95; BMI 24.3
[2025-03-19] MEDS: Lactated Ringers 1,000 ML 100 ML IVCONT (06:27)
--- NOTE | 2025-03-19 07:06 | P.CONAN_ITS ---
[facility] Active Problems Active Problems: All Active Problems Overdose (Acute) S/P total knee arthroplasty (Acute) OCD (obsessive compulsive disorder) (Acute) Chronic insomnia (Acute) Status post total left knee replacement (Acute) Pre-op evaluation (Acute) Mild recurrent major depression (Acute) Skin lesion (Acute) Primary osteoarthritis of left knee (Acute) Sinusitis (Acute) Osteoporosis (Acute) Well woman exam (Acute) Status post total right knee replacement (Acute) Palpitations (Acute) Hypercalcemia (Acute) PAC (premature atrial contraction) (Acute) Primary osteoarthritis of right knee (Acute) Essential hypertension (Acute) Dyslipidemia (Acute) Past Medical History Medical History Panic disorder OCD (obsessive compulsive disorder) MDD (major depressive disorder), recurrent severe, without psychosis Major depressive disorder Arthritis Panic attacks Osteoporosis PTSD (post-traumatic stress disorder) ELIAN (generalized anxiety disorder) PAC (premature atrial contraction) History of anxiety Dyslipidemia Osteoarthritis (arthritis due to wear and tear of joints) Diverticulitis Essential hypertension Hyperkalemia Depression Functional capacity: bed bound Family History Family History Mother Dementia Father No problems noted. Family history of problems with anesthesia: No Surgical History Surgical History Hx of tonsillectomy Hx of tubal ligation History of total right knee replacement Hx of colonoscopy History of carpal tunnel release History of Problems with Anesthesia: No Social History Social History Household Members: Spouse Housing: House Are you a primary care navigator to a significant other at home: No Do you presently have visiting nurse or other home services: No Unable to assess alcohol history related to: Unable to respond Alcohol intake: never Comment: 1:1 sitter Patient Tobacco Use Status: Never used Tobacco e-Cigarette/Vaping Use: Never Used Second Hand Smoke Exposure: No Substance Use Type: Marijuana Advance Directives: No Advance Directives Information Provided: Yes Advance Directives Date on File: 10/11/24 service: No Current occupational status: retired Current occupation: Right Handed Sexual orientation: Straight/Heterosexual Cognitive needs: No Hearing needs: No Vision needs: No Meds Allergies Allergy/AdvReac Type Severity Reaction Status Date / Time No Known Allergies Allergy Verified 02/16/25 06:17 [No Known Allergies*] Active Medications: Current Medications Lactated Ringer's (Lr) 1,000 mls @ 100 mls/hr IVCONT .Q10H HARESH Last Admin: 03/19/25 06:27 Dose: 100 mls/hr Home Medications ?Medication ?Instructions ?Recorded ?Confirmed ?Last Taken ?Type multivitamin 1 tab PO DAILY 01/11/24 10/16/24 02/15/25 History pravastatin 20 mg tablet 20 mg PO DAILY 10/16/24 10/16/24 02/15/25 History Exam Height,Weight and Vital Signs: Height 5 ft 7 in Weight 70.307 kg Last Vital Signs Temp 98.1 F 03/19/25 06:12 Pulse 84 03/19/25 06:12 Resp 18 03/19/25 06:12 BP 142/78 H 03/19/25 06:12 Pulse Ox 95 03/19/25 06:12 O2 Del Method Room Air 03/19/25 06:12 Airway Mallampati Class: II TM Dist: >3cm Neck ROM: Full Loose/Missing/Broken Teeth: No Heart: RRR Lungs: CTA Assessment and Plan Assessment Anesthesia Assessment: Anesthesia Plan Discussed and Chart Reviewed Final Anesthetic Review Family History of Problems with Anesthesia: No History of Problems with Anesthesia: No ASA Class: II Final Preanesthetic Review: Meds/Allgs Chart Reviewed, Consent Obtained/Reviewed and Anes Risks/Benef Reviewed Patient Risk: Low Procedure Risk: Intermediate Anesthetic Plan Anesthetic Plan: GA Disposition: Standard PACU
--- NOTE | 2025-03-19 07:11 | MHC.SHP ---
Pre-Procedural Eval Section A - 24 Hr Update-Section A only Date of Service: 03/19/25 Section B - Complete if H&P > 30 days Chief Complaint: depression Details of Present Illness: depression relieved, anxiety way down Present Medications: None (ambien 5 last night at 8 pm) Allergies: Allergies Allergy/AdvReac Type Severity Reaction Status Date / Time No Known Allergies Allergy Verified 02/16/25 06:17 [No Known Allergies*] Review of Systems Sugical H&P ROS: Negative: Constitution, Cardiovascular and Respiratory Exam Surgical H&P Exam: Normal: Extremities, Normal: Skin and Normal: Neurological Plan Diagnosis/Plan: Unchanged I have reviewed the history and physical and performed a pertinent physical examination on my patient. No changes have occurred unless specified. Time Spent With Patient Time: Total time managing care of this patient today ____ minutes.
[2025-03-19 07:32] VITALS: BP 175/93; PULSE 64; RESP 19; TEMP 36.9; O2SAT 94
[2025-03-19 07:35] VITALS: BP 163/87; PULSE 96; RESP 19; O2SAT 94
[2025-03-19 07:40] VITALS: BP 153/90; PULSE 99; RESP 19; O2SAT 94
[2025-03-19 07:45] VITALS: BP 147/92; PULSE 92; RESP 19; O2SAT 94
[2025-03-19 08:00] VITALS: BP 147/83; PULSE 85; RESP 19; O2SAT 96
--- NOTE | 2025-03-20 23:01 | HO.ECTPROC ---
ECT Procedure Note Diagnosis/Treatment Date of Service: 03/19/25 Diagnosis: Major Depressive Disorder and Other (ocd) Previous ECT Date: 02/26/25 Treatment: Maintenance Interval Clinical Notes: pt states feeling better not overly depressed much decreased anxiety ocd on anafranil f/u 3 weeks Time: Total time managing care of this patient today _30___ minutes. ECT Settings Device: THYMATRON DGx Electrode Placement: Right Unilateral Program/Pulse Width: 0.50 Energy Percent: 100 Seizure Duration By EEG (in seconds): 38 Medications Administration General Anesthetic: Etomidate (10) Muscle Relaxant: Succinylcholine (80) Ancillary Medications Anti-emetics: Zofran - Pre ECT Airway Management Airway Management: Bag Mask Ventilation Treatment Recommendations No Changes Recommended: No change Notes: had ambien night before ECT at 8 pm Pt Tolerated Procedure w/o Issue: Yes
== END 2025-03-19 08:27 | disposition home or self-care (01) ==
PROVIDERS: PCP Student in an Organized Health Care Education/Training Program; Visit Provider Psychiatry & Neurology Psychiatry
PROC: (CPT 90870; principal; 2025-03-19 07:00)
DX: F33.2 Major depressive disorder, recurrent severe without psychotic features (principal); F42.9 Obsessive-compulsive disorder, unspecified; F41.1 Generalized anxiety disorder; F43.10 Post-traumatic stress disorder, unspecified; I10 Essential (primary) hypertension; E87.5 Hyperkalemia; E78.5 Hyperlipidemia, unspecified; M19.90 Unspecified osteoarthritis, unspecified site; M81.0 Age-related osteoporosis without current pathological fracture; Z79.899 Other long term (current) drug therapy
CPT/HCPCS: 90870; J0330; J2405

== ENCOUNTER → 2025-03-19 05:42 | Outpatient (BNV) | payer MEDICARE, OTHER, SELFPAY | PROVIDERS: PCP Student in an Organized Health Care Education/Training Program; Visit Provider Psychiatry & Neurology Psychiatry | DX: F33.2 Major depressive disorder, recurrent severe without psychotic features (principal) | CPT/HCPCS: 90870 ==

== ENCOUNTER 2025-04-11 05:47 | Day surgery (SDC) | payer MEDICARE, OTHER, SELFPAY ==
[2025-04-11] VITALS (7 sets, daily range): BP systolic 110–164; BP diastolic 67–86; PULSE 72–103; RESP 16–23; TEMP 36.1–36.4; O2SAT 87–96; BMI 24.3
--- NOTE | 2025-04-11 07:12 | MHC.SHP ---
Pre-Procedural Eval Section A - 24 Hr Update-Section A only Date of Service: 04/11/25 Section B - Complete if H&P > 30 days Chief Complaint: depression Allergies: Allergies Allergy/AdvReac Type Severity Reaction Status Date / Time No Known Allergies (No Known Allergy Verified 02/16/25 06:17 Allergies*) Review of Systems Sugical H&P ROS: Negative: Constitution and Neurological Exam Surgical H&P Exam: Normal: HEENT, Normal: Extremities and Normal: Neurological Plan Diagnosis/Plan: Unchanged I have reviewed the history and physical and performed a pertinent physical examination on my patient. No changes have occurred unless specified. Time Spent With Patient Time: Total time managing care of this patient today __30__ minutes.
--- NOTE | 2025-04-11 07:14 | HO.ANESPROP2 ---
HPI - Anesthesia Eval Consult details Narrative: for ECT PMFSH Active Problems Active Problems: All Active Problems Overdose (Acute) S/P total knee arthroplasty (Acute) OCD (obsessive compulsive disorder) (Acute) Chronic insomnia (Acute) Status post total left knee replacement (Acute) Pre-op evaluation (Acute) Mild recurrent major depression (Acute) Skin lesion (Acute) Primary osteoarthritis of left knee (Acute) Sinusitis (Acute) Osteoporosis (Acute) Well woman exam (Acute) Status post total right knee replacement (Acute) Palpitations (Acute) Hypercalcemia (Acute) PAC (premature atrial contraction) (Acute) Primary osteoarthritis of right knee (Acute) Essential hypertension (Acute) Dyslipidemia (Acute) Past Medical History Medical History Panic disorder OCD (obsessive compulsive disorder) MDD (major depressive disorder), recurrent severe, without psychosis Major depressive disorder Arthritis Panic attacks Osteoporosis PTSD (post-traumatic stress disorder) ELIAN (generalized anxiety disorder) PAC (premature atrial contraction) History of anxiety Dyslipidemia Osteoarthritis (arthritis due to wear and tear of joints) Diverticulitis Essential hypertension Hyperkalemia Depression Family History Family History Mother Dementia Father No problems noted. Family history of problems with anesthesia: No Surgical History Surgical History Hx of tonsillectomy Hx of tubal ligation History of total right knee replacement Hx of colonoscopy History of carpal tunnel release History of Problems with Anesthesia: No Social History Social History Household Members: Spouse Housing: House Are you a primary animal care giver to a significant other at home: No Do you presently have visiting nurse or other home services: No Unable to assess alcohol history related to: Unable to respond Alcohol intake: never Comment: 1:1 sitter Patient Tobacco Use Status: Never used Tobacco e-Cigarette/Vaping Use: Never Used Second Hand Smoke Exposure: No Substance Use Type: Marijuana Advance Directives: No Advance Directives Information Provided: Yes Advance Directives Date on File: 10/11/24 service: No Current occupational status: retired Current occupation: Right Handed Sexual orientation: Straight/Heterosexual Cognitive needs: No Hearing needs: No Vision needs: No Meds Allergies Allergy/AdvReac Type Severity Reaction Status Date / Time No Known Allergies (No Known Allergy Verified 02/16/25 06:17 Allergies*) Home Medications ?Medication ?Instructions ?Recorded ?Confirmed ?Last Taken ?Type multivitamin 1 tab PO DAILY 01/11/24 10/16/24 02/15/25 History pravastatin 20 mg tablet 20 mg PO DAILY 10/16/24 10/16/24 02/15/25 History Exam Height,Weight and Vital Signs: Height 5 ft 7 in Weight 70.307 kg Last Vital Signs Temp 97.2 F 04/11/25 06:21 Pulse 72 04/11/25 06:21 Resp 18 04/11/25 06:21 BP 127/70 04/11/25 06:21 Pulse Ox 93 04/11/25 06:21 O2 Del Method Room Air 04/11/25 06:21 Airway Mallampati Class: II TM Dist: >3cm Neck ROM: Full Loose/Missing/Broken Teeth: No Heart: ok Lungs: ok Assessment and Plan Final Anesthetic Review Family History of Problems with Anesthesia: No History of Problems with Anesthesia: No NPO: Yes ASA Class: III Final Preanesthetic Review: No Changes in Pt Med Stat, Meds/Allgs Chart Reviewed, Consent Obtained/Reviewed and Anes Risks/Benef Reviewed Patient Risk: Intermediate Procedure Risk: Intermediate Anesthetic Plan Anesthetic Plan: GA and Agree w/ Assess. and Plan Disposition: Standard PACU
--- NOTE | 2025-04-11 07:36 | HO.ECTPROC ---
ECT Procedure Note Diagnosis/Treatment Date of Service: 04/11/25 Diagnosis: Major Depressive Disorder Previous ECT Date: 03/19/25 Treatment: Maintenance Interval Clinical Notes: reports feeling the ECT has really been helpful for her. denies any interval change in medical status. Time: Total time managing care of this patient today __30__ minutes. ECT Settings Device: THYMATRON DGx Program/Pulse Width: 0.50 Energy Percent: 100 Seizure Duration By EEG (in seconds): 39 Medications Administration General Anesthetic: Etomidate (12) Muscle Relaxant: Succinylcholine (100) Ancillary Medications Anti-emetics: Zofran - Pre ECT Airway Management Airway Management: Bag Mask Ventilation Treatment Recommendations No Changes Recommended: No change Notes: etomidate 12 and sux 100 today. Pt Tolerated Procedure w/o Issue: Yes
== END 2025-04-11 08:55 | disposition home or self-care (01) ==
PROVIDERS: PCP Student in an Organized Health Care Education/Training Program; Visit Provider Psychiatry & Neurology Psychiatry
PROC: (CPT 90870; principal; 2025-04-11 07:30)
DX: F33.2 Major depressive disorder, recurrent severe without psychotic features (principal); F42.9 Obsessive-compulsive disorder, unspecified; F43.10 Post-traumatic stress disorder, unspecified; F41.1 Generalized anxiety disorder; I10 Essential (primary) hypertension; E87.5 Hyperkalemia; E78.5 Hyperlipidemia, unspecified; M19.90 Unspecified osteoarthritis, unspecified site; M81.0 Age-related osteoporosis without current pathological fracture; Z79.899 Other long term (current) drug therapy
CPT/HCPCS: 90870; J0330; J2405; J2704

== ENCOUNTER → 2025-04-11 05:47 | Outpatient (BNV) | payer MEDICARE, OTHER, SELFPAY | PROVIDERS: PCP Student in an Organized Health Care Education/Training Program; Visit Provider Psychiatry & Neurology Psychiatry | DX: F33.2 Major depressive disorder, recurrent severe without psychotic features (principal) | CPT/HCPCS: 90870 ==

== ENCOUNTER 2025-05-02 05:47 | Day surgery (SDC) | payer MEDICARE, OTHER, SELFPAY ==
[2025-05-02] VITALS (7 sets, daily range): BP systolic 124–162; BP diastolic 81–91; PULSE 75–90; RESP 18–20; TEMP 36.1–36.6; O2SAT 92–96; BMI 25.1
--- NOTE | 2025-05-02 07:10 | HO.ANESPROP2 ---
[facility] Active Problems Active Problems: All Active Problems Overdose (Acute) S/P total knee arthroplasty (Acute) OCD (obsessive compulsive disorder) (Acute) Chronic insomnia (Acute) Status post total left knee replacement (Acute) Pre-op evaluation (Acute) Mild recurrent major depression (Acute) Skin lesion (Acute) Primary osteoarthritis of left knee (Acute) Sinusitis (Acute) Osteoporosis (Acute) Well woman exam (Acute) Status post total right knee replacement (Acute) Palpitations (Acute) Hypercalcemia (Acute) PAC (premature atrial contraction) (Acute) Primary osteoarthritis of right knee (Acute) Essential hypertension (Acute) Dyslipidemia (Acute) Past Medical History Medical History Panic disorder OCD (obsessive compulsive disorder) MDD (major depressive disorder), recurrent severe, without psychosis Major depressive disorder Arthritis Panic attacks Osteoporosis PTSD (post-traumatic stress disorder) ELIAN (generalized anxiety disorder) PAC (premature atrial contraction) History of anxiety Dyslipidemia Osteoarthritis (arthritis due to wear and tear of joints) Diverticulitis Essential hypertension Hyperkalemia Depression Family History Family History Mother Dementia Father No problems noted. Family history of problems with anesthesia: No Surgical History Surgical History Hx of tonsillectomy Hx of tubal ligation History of total right knee replacement Hx of colonoscopy History of carpal tunnel release History of Problems with Anesthesia: No Social History Social History Household Members: Spouse Housing: House Are you a primary wild animal caretaker to a significant other at home: No Do you presently have visiting nurse or other home services: No Unable to assess alcohol history related to: Unable to respond Alcohol intake: never Comment: 1:1 sitter Patient Tobacco Use Status: Never used Tobacco e-Cigarette/Vaping Use: Never Used Second Hand Smoke Exposure: No Use of substances other than those prescribed or required for medical reasons: No Substance Use Type: Marijuana Are you DNR?: No Advance Directives: No Advance Directives Information Provided: Yes Advance Directives Date on File: 10/11/24 service: No Current occupational status: retired Current occupation: Right Handed Sexual orientation: Straight/Heterosexual Cognitive needs: No Hearing needs: No Vision needs: No Meds Allergies Allergy/AdvReac Type Severity Reaction Status Date / Time No Known Allergies (No Known Allergy Verified 02/16/25 06:17 Allergies*) Home Medications ?Medication ?Instructions ?Recorded ?Confirmed ?Last Taken ?Type multivitamin 1 tab PO DAILY 01/11/24 10/16/24 02/15/25 History pravastatin 20 mg tablet 20 mg PO DAILY 10/16/24 10/16/24 02/15/25 History Exam Height,Weight and Vital Signs: Height 5 ft 7 in Weight 72.575 kg Last Vital Signs Temp 97 F 05/02/25 06:29 Pulse 75 05/02/25 06:29 Resp 20 05/02/25 06:29 BP 124/85 05/02/25 06:29 Pulse Ox 94 05/02/25 06:29 Airway Mallampati Class: III TM Dist: >3cm Neck ROM: Full Assessment and Plan Assessment Anesthesia Assessment: Anesthesia Plan Discussed and Chart Reviewed Final Anesthetic Review Family History of Problems with Anesthesia: No History of Problems with Anesthesia: No NPO: Yes ASA Class: III Final Preanesthetic Review: No Changes in Pt Med Stat, Meds/Allgs Chart Reviewed, Consent Obtained/Reviewed and Anes Risks/Benef Reviewed Patient Risk: Intermediate Procedure Risk: Low Anesthetic Plan Anesthetic Plan: GA Disposition: Standard PACU
--- NOTE | 2025-05-02 07:11 | MHC.SHP ---
Pre-Procedural Eval Section A - 24 Hr Update-Section A only Date of Service: 05/02/25 Section B - Complete if H&P > 30 days Chief Complaint: depression Details of Present Illness: pt stable doing well no new mwdical concerns Allergies: Allergies Allergy/AdvReac Type Severity Reaction Status Date / Time No Known Allergies (No Known Allergy Verified 02/16/25 06:17 Allergies*) Review of Systems Sugical H&P ROS: Negative: Constitution and Neurological Exam Surgical H&P Exam: Normal: HEENT, Normal: Extremities and Normal: Neurological Plan Diagnosis/Plan: Unchanged I have reviewed the history and physical and performed a pertinent physical examination on my patient. No changes have occurred unless specified. Time Spent With Patient Time: Total time managing care of this patient today ____ minutes.
--- NOTE | 2025-05-02 07:16 | HO.ECTPROC ---
ECT Procedure Note Diagnosis/Treatment Date of Service: 05/02/25 Diagnosis: Major Depressive Disorder and Other (ocd) Previous ECT Date: 04/11/25 Treatment: Maintenance Interval Clinical Notes: pt states feeling better not overly depressed much decreased anxiety ocd on anafranil f/u 3-4 wks Time: Total time managing care of this patient today ____ minutes. ECT Settings Device: THYMATRON DGx Electrode Placement: Right Unilateral Program/Pulse Width: 0.50 Energy Percent: 100 Seizure Duration By EEG (in seconds): 54 Medications Administration General Anesthetic: Etomidate (10) Muscle Relaxant: Succinylcholine (80) Ancillary Medications Anti-emetics: Zofran - Pre ECT Airway Management Airway Management: Bag Mask Ventilation Treatment Recommendations No Changes Recommended: No change Notes: feels much improved cont ect can try and gradually wean Pt Tolerated Procedure w/o Issue: Yes
[2025-05-02 08:03] LABS: MANUAL DIFF FLAG NO
[2025-05-02 08:06] LABS: Hematocrit 41.7 % (37.0-47.0); Hemoglobin 13.8 g/dl (12.0-16.0); Imm Gran Abs Auto 0.22 X10*3/uL (0.00-0.03); Imm Gran Pct Auto 1.8 % (0.0-0.4); Lymphocytes Absolute Auto 4.6 X10*3/uL (1.2-4.9); Mean Corpuscular HGB Conc 33.1 g/dl (31.0-35.0); Mean Corpuscular Hemoglobin 30.6 pg (27.0-33.0); Mean Corpuscular Volume 92.5 fL (80.0-98.0); NRBC Abs Auto 0.000 X10*3/uL (0.0-0.012); NRBC Pct Auto 0.0 /100WBC (0.0-0.2); Platelet Count 254 X10*3/uL (160-400); Red Blood Count 4.51 X10*6/uL (4.20-5.50); White Blood Count 12.4 X10*3/uL (4.8-10.8)
[2025-05-02 08:24] LABS: Alanine Aminotransferase 25 U/L (0-31); Albumin Level 4.2 g/dL (3.5-5.0); Alkaline Phosphatase 66 U/L (39-117); Anion Gap 13 (12-20); Aspartate Amino Transferase 30 U/L (5-31); Blood Urea Nitrogen 25 mg/dL (9-16); Calcium 8.6 mg/dL (8.4-10.2); Carbon Dioxide 25 mmol/L (22-29); Chloride 109 mmol/L (96-108); Creatinine Clr Calc Pharmacy 62.6; Estimated Glomerular Filt Rate > 60; Potassium 4.8 mmol/L (3.3-5.1); Sodium 142 mmol/L (135-145); Total Protein 7.2 g/dL (6.5-8.0)
== END 2025-05-02 08:50 | disposition home or self-care (01) ==
PROVIDERS: PCP Student in an Organized Health Care Education/Training Program; Visit Provider Psychiatry & Neurology Psychiatry
PROC: (CPT 90870; principal; 2025-05-02 07:00)
DX: F33.2 Major depressive disorder, recurrent severe without psychotic features (principal); F42.9 Obsessive-compulsive disorder, unspecified; F41.1 Generalized anxiety disorder; F43.10 Post-traumatic stress disorder, unspecified; I10 Essential (primary) hypertension; E78.00 Pure hypercholesterolemia, unspecified; M18.0 Bilateral primary osteoarthritis of first carpometacarpal joints; Z79.899 Other long term (current) drug therapy
CPT/HCPCS: 36415; 80053; 85025; 90870; J0330; J2405

== ENCOUNTER → 2025-05-02 05:47 | Outpatient (BNV) | payer MEDICARE, OTHER, SELFPAY | PROVIDERS: PCP Student in an Organized Health Care Education/Training Program; Visit Provider Psychiatry & Neurology Psychiatry | DX: F33.2 Major depressive disorder, recurrent severe without psychotic features (principal) | CPT/HCPCS: 90870 ==

== ENCOUNTER 2025-05-28 05:43 | Day surgery (SDC) | payer MEDICARE, OTHER, SELFPAY ==
--- NOTE | 2025-05-28 07:14 | P.CONAN_ITS ---
[facility] Active Problems Active Problems: All Active Problems (Updated 11/09/24 @ 00:01 by Jacquelyn Goldman) Overdose (Acute) S/P total knee arthroplasty (Acute) OCD (obsessive compulsive disorder) (Acute) Chronic insomnia (Acute) Status post total left knee replacement (Acute) Pre-op evaluation (Acute) Mild recurrent major depression (Acute) Skin lesion (Acute) Primary osteoarthritis of left knee (Acute) Sinusitis (Acute) Osteoporosis (Acute) Well woman exam (Acute) Status post total right knee replacement (Acute) Palpitations (Acute) Hypercalcemia (Acute) PAC (premature atrial contraction) (Acute) Primary osteoarthritis of right knee (Acute) Essential hypertension (Acute) Dyslipidemia (Acute) Past Medical History Medical History Panic disorder OCD (obsessive compulsive disorder) MDD (major depressive disorder), recurrent severe, without psychosis Major depressive disorder Arthritis Panic attacks Osteoporosis PTSD (post-traumatic stress disorder) ELIAN (generalized anxiety disorder) PAC (premature atrial contraction) History of anxiety Dyslipidemia Osteoarthritis (arthritis due to wear and tear of joints) Diverticulitis Essential hypertension Hyperkalemia Depression Family History Family History Mother Dementia Father No problems noted. Family history of problems with anesthesia: No Surgical History Surgical History Hx of tonsillectomy Hx of tubal ligation History of total right knee replacement Hx of colonoscopy History of carpal tunnel release History of Problems with Anesthesia: No Social History Social History Household Members: Spouse Housing: House Are you a primary resident care manager to a significant other at home: No Do you presently have visiting nurse or other home services: No Unable to assess alcohol history related to: Unable to respond Alcohol intake: never Comment: 1:1 sitter Patient Tobacco Use Status: Never used Tobacco e-Cigarette/Vaping Use: Never Used Second Hand Smoke Exposure: No Substance Use Type: Marijuana Advance Directives: No Advance Directives Information Provided: Yes Advance Directives Date on File: 10/11/24 service: No Current occupational status: retired Current occupation: Right Handed Sexual orientation: Straight/Heterosexual Cognitive needs: No Hearing needs: No Vision needs: No Meds Allergies Allergy/AdvReac Type Severity Reaction Status Date / Time No Known Allergies (No Known Allergy Verified 02/16/25 06:17 Allergies*) Home Medications ?Medication ?Instructions ?Recorded ?Confirmed ?Last Taken ?Type multivitamin 1 tab PO DAILY 01/11/2409/1902/15/25 History pravastatin 20 mg tablet 20 mg PO DAILY 10/16/2409/1902/15/25 History Exam Airway Mallampati Class: II TM Dist: >3cm Neck ROM: Full Assessment and Plan Assessment Anesthesia Assessment: Anesthesia Plan Discussed and Chart Reviewed Final Anesthetic Review Family History of Problems with Anesthesia: No History of Problems with Anesthesia: No NPO: Yes ASA Class: III Final Preanesthetic Review: No Changes in Pt Med Stat, Meds/Allgs Chart Reviewed, Consent Obtained/Reviewed and Anes Risks/Benef Reviewed Patient Risk: Intermediate Procedure Risk: Intermediate Anesthetic Plan Anesthetic Plan: GA Disposition: Standard PACU
--- NOTE | 2025-05-28 07:18 | MHC.SHP ---
Pre-Procedural Eval Section A - 24 Hr Update-Section A only Date of Service: 05/28/25 Section B - Complete if H&P > 30 days Chief Complaint: depression Details of Present Illness: hx recurrent depression and anxietyhas had inc dep anxiety. no medical changes Allergies: Allergies Allergy/AdvReac Type Severity Reaction Status Date / Time No Known Allergies (No Known Allergy Verified 02/16/25 06:17 Allergies*) Review of Systems Sugical H&P ROS: Negative: Cardiovascular, Respiratory and Neurological and Yes, Specify: Psychiatric (inc dep and anxiety) Exam Surgical H&P Exam: Normal: Heart, Normal: Lungs and Normal: Neurological Plan Diagnosis/Plan: Change I have reviewed the history and physical and performed a pertinent physical examination on my patient. No changes have occurred unless specified. More dep sx will f/u tx in 1 wk Time Spent With Patient Time: Total time managing care of this patient today ____ minutes.
[2025-05-28 07:29] VITALS: BMI 24.3
--- NOTE | 2025-05-28 07:54 | HO.ECTPROC ---
ECT Procedure Note Diagnosis/Treatment Date of Service: 05/28/25 Diagnosis: Major Depressive Disorder and Other (ocd) Previous ECT Date: 04/11/25 Treatment: Maintenance Interval Clinical Notes: Pt has been inc depressed anxious ruminating no active si but hopeless helpless ect scheduled in 1 wk pt to spk to her psychiatrist Time: Total time managing care of this patient today ____ minutes. ECT Settings Device: THYMATRON DGx Electrode Placement: Right Unilateral Program/Pulse Width: 0.50 Energy Percent: 100 Seizure Duration By EEG (in seconds): 54 Medications Administration General Anesthetic: Etomidate (12) Muscle Relaxant: Succinylcholine (80) Ancillary Medications Anti-emetics: Zofran - Pre ECT Miscillaneous Medications: Midazolam (1 mg and alprazolam 0.25 mg) Airway Management Airway Management: Bag Mask Ventilation Treatment Recommendations No Changes Recommended: No change Notes: pt had post op anxiety given versed post 1 mg and po alprazolam 0.25 mg Pt Tolerated Procedure w/o Issue: Yes
[2025-05-28 07:58] VITALS: BP 163/89; PULSE 54; RESP 22; TEMP 37; O2SAT 100
[2025-05-28 08:03] VITALS: BP 152/93; PULSE 110; RESP 22; O2SAT 96
[2025-05-28 08:08] VITALS: BP 156/99; PULSE 118; RESP 22; O2SAT 94
[2025-05-28 08:13] VITALS: BP 159/99; PULSE 100; RESP 17; O2SAT 94
[2025-05-28 08:28] VITALS: BP 145/82; PULSE 86; RESP 17; O2SAT 94
[2025-05-28 08:43] VITALS: BP 135/74; PULSE 77; RESP 16; TEMP 37; O2SAT 94
== END 2025-05-28 09:27 | disposition home or self-care (01) ==
PROVIDERS: PCP Student in an Organized Health Care Education/Training Program; Visit Provider Psychiatry & Neurology Psychiatry
PROC: (CPT 90870; principal; 2025-05-28 08:00)
DX: F33.2 Major depressive disorder, recurrent severe without psychotic features (principal); F42.9 Obsessive-compulsive disorder, unspecified; F41.1 Generalized anxiety disorder; F43.10 Post-traumatic stress disorder, unspecified; I10 Essential (primary) hypertension; E78.00 Pure hypercholesterolemia, unspecified; M18.0 Bilateral primary osteoarthritis of first carpometacarpal joints; Z79.899 Other long term (current) drug therapy
CPT/HCPCS: 90870; J0330; J2250; J2405

== ENCOUNTER → 2025-05-28 05:43 | Outpatient (BNV) | payer MEDICARE, OTHER, SELFPAY | PROVIDERS: PCP Student in an Organized Health Care Education/Training Program; Visit Provider Psychiatry & Neurology Psychiatry | DX: F33.2 Major depressive disorder, recurrent severe without psychotic features (principal) | CPT/HCPCS: 90870 ==

== ENCOUNTER 2025-06-04 05:36 | Day surgery (SDC) | payer MEDICARE, OTHER, SELFPAY ==
[2025-06-04] VITALS (9 sets, daily range): BP systolic 119–167; BP diastolic 69–88; PULSE 76–85; RESP 16–48; TEMP 36.1–37.1; O2SAT 91–93
--- NOTE | 2025-06-04 06:44 | HO.ANESPROP2 ---
[facility] Active Problems Active Problems: All Active Problems Overdose (Acute) S/P total knee arthroplasty (Acute) OCD (obsessive compulsive disorder) (Acute) Chronic insomnia (Acute) Status post total left knee replacement (Acute) Pre-op evaluation (Acute) Mild recurrent major depression (Acute) Skin lesion (Acute) Primary osteoarthritis of left knee (Acute) Sinusitis (Acute) Osteoporosis (Acute) Well woman exam (Acute) Status post total right knee replacement (Acute) Palpitations (Acute) Hypercalcemia (Acute) PAC (premature atrial contraction) (Acute) Primary osteoarthritis of right knee (Acute) Essential hypertension (Acute) Dyslipidemia (Acute) Past Medical History Medical History Panic disorder OCD (obsessive compulsive disorder) MDD (major depressive disorder), recurrent severe, without psychosis Major depressive disorder Arthritis Panic attacks Osteoporosis PTSD (post-traumatic stress disorder) ELIAN (generalized anxiety disorder) PAC (premature atrial contraction) History of anxiety Dyslipidemia Osteoarthritis (arthritis due to wear and tear of joints) Diverticulitis Essential hypertension Hyperkalemia Depression Family History Family History Mother Dementia Father No problems noted. Family history of problems with anesthesia: No Surgical History Surgical History Hx of tonsillectomy Hx of tubal ligation History of total right knee replacement Hx of colonoscopy History of carpal tunnel release History of Problems with Anesthesia: No Social History Social History Household Members: Spouse Housing: House Are you a primary medicare insurance specialist to a significant other at home: No Do you presently have visiting nurse or other home services: No Unable to assess alcohol history related to: Unable to respond Alcohol intake: never Comment: 1:1 sitter Patient Tobacco Use Status: Never used Tobacco e-Cigarette/Vaping Use: Never Used Second Hand Smoke Exposure: No Substance Use Type: Marijuana Advance Directives: No Advance Directives Information Provided: Yes Advance Directives Date on File: 10/11/24 service: No Current occupational status: retired Current occupation: Right Handed Sexual orientation: Straight/Heterosexual Cognitive needs: No Hearing needs: No Vision needs: No Meds Allergies Allergy/AdvReac Type Severity Reaction Status Date / Time No Known Allergies (No Known Allergy Verified 02/16/25 06:17 Allergies*) Home Medications ?Medication ?Instructions ?Recorded ?Confirmed ?Last Taken ?Type multivitamin 1 tab PO DAILY 01/11/24 10/16/24 02/15/25 History pravastatin 20 mg tablet 20 mg PO DAILY 10/16/24 10/16/24 02/15/25 History Exam Height,Weight and Vital Signs: Height 5 ft 7 in Last Vital Signs Temp 97 F 06/04/25 06:25 Pulse 81 06/04/25 06:25 Resp 48 H 06/04/25 06:25 Pulse Ox 92 06/04/25 06:25 O2 Del Method Room Air 06/04/25 06:25 Airway Mallampati Class: II TM Dist: >3cm Neck ROM: Full Heart: rrr Lungs: cta Assessment and Plan Assessment Anesthesia Assessment: Anesthesia Plan Discussed and Chart Reviewed Final Anesthetic Review Family History of Problems with Anesthesia: No History of Problems with Anesthesia: No NPO: Yes ASA Class: III Final Preanesthetic Review: No Changes in Pt Med Stat, Meds/Allgs Chart Reviewed and Consent Obtained/Reviewed Patient Risk: Intermediate Procedure Risk: Intermediate Anesthetic Plan Anesthetic Plan: GA Disposition: Standard PACU
--- NOTE | 2025-06-04 06:59 | MHC.SHP ---
Pre-Procedural Eval Section A - 24 Hr Update-Section A only Date of Service: 06/04/25 Section B - Complete if H&P > 30 days Chief Complaint: depression Details of Present Illness: no change since last Tx Allergies: Allergies Allergy/AdvReac Type Severity Reaction Status Date / Time No Known Allergies (No Known Allergy Verified 02/16/25 06:17 Allergies*) Review of Systems Sugical H&P ROS: Negative: Constitution Exam Surgical H&P Exam: Normal: HEENT, Normal: Extremities and Normal: Neurological Plan Diagnosis/Plan: Unchanged I have reviewed the history and physical and performed a pertinent physical examination on my patient. No changes have occurred unless specified. Time Spent With Patient Time: Total time managing care of this patient today _35___ minutes.
--- NOTE | 2025-06-04 07:44 | HO.ECTPROC ---
ECT Procedure Note Diagnosis/Treatment Date of Service: 06/04/25 Diagnosis: Major Depressive Disorder and Other (OCD) Previous ECT Date: 05/28/25 Treatment: Maintenance Interval Clinical Notes: no change in Sx since last Tx Time: Total time managing care of this patient today __35__ minutes. ECT Settings Device: THYMATRON DGx Electrode Placement: Right Unilateral Program/Pulse Width: 0.50 Energy Percent: 100 Seizure Duration By EEG (in seconds): 19 Medications Administration General Anesthetic: Etomidate (12) Muscle Relaxant: Succinylcholine (100) Ancillary Medications Anti-emetics: Zofran - Pre ECT Airway Management Airway Management: Bag Mask Ventilation Treatment Recommendations Notes: increase sux to 120 for next treatment as pt exhibited substantial contractions Pt Tolerated Procedure w/o Issue: Yes
== END 2025-06-04 10:12 | disposition home or self-care (01) ==
PROVIDERS: PCP Student in an Organized Health Care Education/Training Program; Visit Provider Psychiatry & Neurology Psychiatry
PROC: (CPT 90870; principal; 2025-06-04 08:00)
DX: F33.2 Major depressive disorder, recurrent severe without psychotic features (principal); F42.9 Obsessive-compulsive disorder, unspecified; F41.1 Generalized anxiety disorder; F43.10 Post-traumatic stress disorder, unspecified; I10 Essential (primary) hypertension; E78.00 Pure hypercholesterolemia, unspecified; Z79.899 Other long term (current) drug therapy
CPT/HCPCS: 90870; J0330; J1596; J1805; J2250; J2405; J2704

== ENCOUNTER → 2025-06-04 05:36 | Outpatient (BNV) | payer MEDICARE, OTHER, SELFPAY | PROVIDERS: PCP Student in an Organized Health Care Education/Training Program; Visit Provider Psychiatry & Neurology Psychiatry | DX: F33.2 Major depressive disorder, recurrent severe without psychotic features (principal) | CPT/HCPCS: 90870 ==

== ENCOUNTER 2025-06-11 05:36 | Day surgery (SDC) | payer MEDICARE, OTHER, SELFPAY ==
[2025-06-11] VITALS (8 sets, daily range): BP systolic 118–146; BP diastolic 71–90; PULSE 73–106; RESP 18–19; TEMP 36.3–36.4; O2SAT 93–96; BMI 24.3
--- NOTE | 2025-06-11 07:01 | HO.ANESPROP2 ---
[facility] Active Problems Active Problems: All Active Problems Overdose (Acute) S/P total knee arthroplasty (Acute) OCD (obsessive compulsive disorder) (Acute) Chronic insomnia (Acute) Status post total left knee replacement (Acute) Pre-op evaluation (Acute) Mild recurrent major depression (Acute) Skin lesion (Acute) Primary osteoarthritis of left knee (Acute) Sinusitis (Acute) Osteoporosis (Acute) Well woman exam (Acute) Status post total right knee replacement (Acute) Palpitations (Acute) Hypercalcemia (Acute) PAC (premature atrial contraction) (Acute) Primary osteoarthritis of right knee (Acute) Essential hypertension (Acute) Dyslipidemia (Acute) Past Medical History Medical History Panic disorder OCD (obsessive compulsive disorder) MDD (major depressive disorder), recurrent severe, without psychosis Major depressive disorder Arthritis Panic attacks Osteoporosis PTSD (post-traumatic stress disorder) ELIAN (generalized anxiety disorder) PAC (premature atrial contraction) History of anxiety Dyslipidemia Osteoarthritis (arthritis due to wear and tear of joints) Diverticulitis Essential hypertension Hyperkalemia Depression Family History Family History Mother Dementia Father No problems noted. Family history of problems with anesthesia: No Surgical History Surgical History Hx of tonsillectomy Hx of tubal ligation History of total right knee replacement Hx of colonoscopy History of carpal tunnel release History of Problems with Anesthesia: No Social History Social History Household Members: Spouse Housing: House Are you a primary medicare interviewer to a significant other at home: No Do you presently have visiting nurse or other home services: No Unable to assess alcohol history related to: Unable to respond Alcohol intake: never Comment: 1:1 sitter Patient Tobacco Use Status: Never used Tobacco e-Cigarette/Vaping Use: Never Used Second Hand Smoke Exposure: No Substance Use Type: Marijuana Advance Directives: No Advance Directives Information Provided: Yes Advance Directives Date on File: 10/11/24 service: No Current occupational status: retired Current occupation: Right Handed Sexual orientation: Straight/Heterosexual Cognitive needs: No Hearing needs: No Vision needs: No Meds Allergies Allergy/AdvReac Type Severity Reaction Status Date / Time No Known Allergies (No Known Allergy Verified 02/16/25 06:17 Allergies*) Active Medications: Current Medications Lactated Ringer's (Lr) 1,000 mls @ 50 mls/hr IVCONT .Q20H HARESH Naloxone HCl (Naloxone Hcl 0.4 Mg/Ml Vial) 0.04 mg IVPUSH Q5M PRN PRN Reason: Excessive sedation or RR < 8 Home Medications ?Medication ?Instructions ?Recorded ?Confirmed ?Last Taken ?Type multivitamin 1 tab PO DAILY 01/11/24 10/16/24 02/15/25 History pravastatin 20 mg tablet 20 mg PO DAILY 10/16/24 10/16/24 02/15/25 History Exam Height,Weight and Vital Signs: Height 5 ft 7 in Weight 70.307 kg Last Vital Signs Temp 97.4 F 06/11/25 06:35 Pulse 86 06/11/25 06:35 Resp 18 06/11/25 06:35 BP 130/78 06/11/25 06:35 Pulse Ox 93 06/11/25 06:35 O2 Del Method Room Air 06/11/25 06:35 Airway Mallampati Class: II TM Dist: >3cm Neck ROM: Full Heart: rrr Lungs: cta Assessment and Plan Assessment Anesthesia Assessment: Anesthesia Plan Discussed and Chart Reviewed Final Anesthetic Review Family History of Problems with Anesthesia: No History of Problems with Anesthesia: No NPO: Yes ASA Class: III Final Preanesthetic Review: No Changes in Pt Med Stat, Meds/Allgs Chart Reviewed and Consent Obtained/Reviewed Patient Risk: Intermediate Procedure Risk: Intermediate Anesthetic Plan Anesthetic Plan: GA Disposition: Standard PACU
--- NOTE | 2025-06-11 07:38 | MHC.SHP ---
Pre-Procedural Eval Section A - 24 Hr Update-Section A only Date of Service: 06/11/25 Section B - Complete if H&P > 30 days Chief Complaint: depression Details of Present Illness: no change since last Tx Present Medications: see Short Stay Collaborative assessment Allergies: Allergies Allergy/AdvReac Type Severity Reaction Status Date / Time No Known Allergies (No Known Allergy Verified 02/16/25 06:17 Allergies*) Review of Systems Sugical H&P ROS: Negative: Constitution, Cardiovascular and Neurological and Yes, Specify: Psychiatric (obsessional anxiety re sleep) Exam Surgical H&P Exam: Normal: HEENT, Normal: Lungs, Normal: Extremities and Normal: Neurological Plan Diagnosis/Plan: Unchanged I have reviewed the history and physical and performed a pertinent physical examination on my patient. No changes have occurred unless specified. Time Spent With Patient Time: Total time managing care of this patient today ____ minutes.
--- NOTE | 2025-06-11 07:39 | HO.ECTPROC ---
ECT Procedure Note Diagnosis/Treatment Date of Service: 06/11/25 Diagnosis: Major Depressive Disorder and Other Treatment: Maintenance and Series Interval Clinical Notes: PT HAS BEEN FEELING BETTER SINCE LAST TX LESS RUMINATING NO SI NOW ON VYRAYLAR Time: Total time managing care of this patient today _30___ minutes. ECT Settings Device: THYMATRON DGx Electrode Placement: Right Unilateral Program/Pulse Width: 0.50 Energy Percent: 100 Seizure Duration By EEG (in seconds): 42 Medications Administration General Anesthetic: Etomidate (14PLUS 2) Muscle Relaxant: Succinylcholine (100) Ancillary Medications Cardiovascular Medications: Glycopyrrolate Airway Management Airway Management: Bag Mask Ventilation Treatment Recommendations Electrode Placement: Right Unilateral Notes: F/U TX 2 WKS Pt Tolerated Procedure w/o Issue: Yes
== END 2025-06-11 09:28 | disposition home or self-care (01) ==
PROVIDERS: PCP Student in an Organized Health Care Education/Training Program; Visit Provider Psychiatry & Neurology Psychiatry
PROC: (CPT 90870; principal; 2025-06-11 07:00)
DX: F33.2 Major depressive disorder, recurrent severe without psychotic features (principal); F42.9 Obsessive-compulsive disorder, unspecified; F41.1 Generalized anxiety disorder; F43.10 Post-traumatic stress disorder, unspecified; I10 Essential (primary) hypertension; E78.00 Pure hypercholesterolemia, unspecified; Z79.899 Other long term (current) drug therapy
CPT/HCPCS: 90870; J0330; J2250; J2405

== ENCOUNTER → 2025-06-11 05:36 | Outpatient (BNV) | payer MEDICARE, OTHER, SELFPAY | PROVIDERS: PCP Student in an Organized Health Care Education/Training Program; Visit Provider Psychiatry & Neurology Psychiatry | DX: F33.2 Major depressive disorder, recurrent severe without psychotic features (principal) | CPT/HCPCS: 90870 ==

== ENCOUNTER 2025-07-02 05:39 | Day surgery (SDC) | payer MEDICARE, OTHER, SELFPAY ==
--- OUTSIDE RECORDS SUMMARY | 2025-06-11 09:42 | XMS_ITS | Encounter Summary ---
Author Organization [email or web address] [facility] Address [address] [place] [address] Care Team Providers Care Publications Manager Name Role Phone Darshan Frye MD Primary Care Provider Wade Mcconnell, Pcp Primary Care Provider Zakia lópez Encounter Details Date Type Department Care Team Description 04/24/2015 Release of Information Medical Records [address] [place] [id number] Abstract, Provider Social History Tobacco Use Types [...] on filedocumented in this encounter Care Teams Publications Manager Relationship Specialty Start Date End Date Darshan Frye MD PCP - General Internal Medicine 03/26/15 10/29/19 Enedina, Pcp PCP - General Internal Medicine 10/30/19 documented as of this encounter
[2025-07-02] VITALS (7 sets, daily range): BP systolic 113–132; BP diastolic 63–85; PULSE 66–85; RESP 12–16; TEMP 36.1–36.6; O2SAT 94–97; BMI 25.9
--- NOTE | 2025-07-02 06:39 | HO.ANESPROP2 ---
[facility] Active Problems Active Problems: All Active Problems (Updated 11/09/24 @ 00:01 by Jacquelyn Goldman) Overdose (Acute) S/P total knee arthroplasty (Acute) OCD (obsessive compulsive disorder) (Acute) Chronic insomnia (Acute) Status post total left knee replacement (Acute) Pre-op evaluation (Acute) Mild recurrent major depression (Acute) Skin lesion (Acute) Primary osteoarthritis of left knee (Acute) Sinusitis (Acute) Osteoporosis (Acute) Well woman exam (Acute) Status post total right knee replacement (Acute) Palpitations (Acute) Hypercalcemia (Acute) PAC (premature atrial contraction) (Acute) Primary osteoarthritis of right knee (Acute) Essential hypertension (Acute) Dyslipidemia (Acute) Past Medical History Medical History Panic disorder OCD (obsessive compulsive disorder) MDD (major depressive disorder), recurrent severe, without psychosis Major depressive disorder Arthritis Panic attacks Osteoporosis PTSD (post-traumatic stress disorder) ELIAN (generalized anxiety disorder) PAC (premature atrial contraction) History of anxiety Dyslipidemia Osteoarthritis (arthritis due to wear and tear of joints) Diverticulitis Essential hypertension Hyperkalemia Depression Family History Family History Mother Dementia Father No problems noted. Family history of problems with anesthesia: No Surgical History Surgical History Hx of tonsillectomy Hx of tubal ligation History of total right knee replacement Hx of colonoscopy History of carpal tunnel release History of Problems with Anesthesia: No Social History Social History Household Members: Spouse Housing: House Are you a primary caregivers homecare to a significant other at home: No Do you presently have visiting nurse or other home services: No Unable to assess alcohol history related to: Unable to respond Alcohol intake: never Comment: 1:1 sitter Patient Tobacco Use Status: Never used Tobacco e-Cigarette/Vaping Use: Never Used Second Hand Smoke Exposure: No Substance Use Type: Marijuana Advance Directives: No Advance Directives Information Provided: Yes Advance Directives Date on File: 10/11/24 service: No Current occupational status: retired Current occupation: Right Handed Sexual orientation: Straight/Heterosexual Cognitive needs: No Hearing needs: No Vision needs: No Meds Allergies Allergy/AdvReac Type Severity Reaction Status Date / Time No Known Allergies (No Known Allergy Verified 02/16/25 06:17 Allergies*) Active Medications: Current Medications Lactated Ringer's (Lr) 1,000 mls @ 50 mls/hr IVCONT .Q20H HARESH Naloxone HCl (Naloxone Hcl 0.4 Mg/Ml Vial) 0.04 mg IVPUSH Q5M PRN PRN Reason: Excessive sedation or RR < 8 Home Medications ?Medication ?Instructions ?Recorded ?Confirmed ?Last Taken ?Type multivitamin 1 tab PO DAILY 01/11/24 10/16/24 02/15/25 History pravastatin 20 mg tablet 20 mg PO DAILY 10/16/24 10/16/24 02/15/25 History Exam Height,Weight and Vital Signs: Height 5 ft 7 in Weight 165 lb 5.547 oz Last Vital Signs Temp 97 F 07/02/25 06:10 Pulse 66 07/02/25 06:10 Resp 12 07/02/25 06:10 BP 117/63 07/02/25 06:10 Pulse Ox 96 07/02/25 06:10 O2 Del Method Room Air 07/02/25 06:10 Airway Mallampati Class: II TM Dist: >3cm Neck ROM: Full Heart: rrr Lungs: cta Assessment and Plan Assessment Anesthesia Assessment: Anesthesia Plan Discussed and Chart Reviewed Final Anesthetic Review Family History of Problems with Anesthesia: No History of Problems with Anesthesia: No NPO: Yes ASA Class: III Final Preanesthetic Review: No Changes in Pt Med Stat, Meds/Allgs Chart Reviewed and Consent Obtained/Reviewed Patient Risk: Intermediate Procedure Risk: Intermediate Anesthetic Plan Anesthetic Plan: GA Disposition: Standard PACU
--- NOTE | 2025-07-02 07:05 | MHC.SHP ---
Pre-Procedural Eval Section A - 24 Hr Update-Section A only Date of Service: 07/02/25 Section B - Complete if H&P > 30 days Chief Complaint: DEPRESSION Allergies: Allergies Allergy/AdvReac Type Severity Reaction Status Date / Time No Known Allergies (No Known Allergy Verified 02/16/25 06:17 Allergies*) Review of Systems Review of Systems Comment: NEG Exam Surgical H&P Exam: Normal: HEENT, Normal: Extremities, Normal: Skin and Normal: Neurological Plan Diagnosis/Plan: Unchanged I have reviewed the history and physical and performed a pertinent physical examination on my patient. No changes have occurred unless specified. Time Spent With Patient Time: Total time managing care of this patient today __30__ minutes.
--- NOTE | 2025-07-02 07:15 | HO.ECTPROC ---
ECT Procedure Note Diagnosis/Treatment Date of Service: 06/11/25 Diagnosis: Major Depressive Disorder Previous ECT Date: 06/29/25 Treatment: Maintenance Interval Clinical Notes: smiling, feeling well. denies any issues, developments over the weekend Time: Total time managing care of this patient today __30__ minutes. ECT Settings Device: THYMATRON DGx Electrode Placement: Right Unilateral Program/Pulse Width: 0.50 Energy Percent: 100 Seizure Duration By EEG (in seconds): 98 Medications Administration General Anesthetic: Etomidate (14) Muscle Relaxant: Succinylcholine (100) Ancillary Medications Miscillaneous Medications: Midazolam (1.5) Airway Management Airway Management: Bag Mask Ventilation Treatment Recommendations No Changes Recommended: No change Notes: RTC in 2 weeks Pt Tolerated Procedure w/o Issue: Yes
== END 2025-07-02 08:24 | disposition home or self-care (01) ==
PROVIDERS: PCP Student in an Organized Health Care Education/Training Program; Visit Provider Psychiatry & Neurology Psychiatry
PROC: (CPT 90870; principal; 2025-07-02 07:30)
DX: F33.2 Major depressive disorder, recurrent severe without psychotic features (principal); F42.9 Obsessive-compulsive disorder, unspecified; F41.1 Generalized anxiety disorder; F43.10 Post-traumatic stress disorder, unspecified; I10 Essential (primary) hypertension; E78.00 Pure hypercholesterolemia, unspecified; Z79.899 Other long term (current) drug therapy
CPT/HCPCS: 90870; J0330; J2250

== ENCOUNTER → 2025-07-02 05:39 | Outpatient (BNV) | payer MEDICARE, OTHER, SELFPAY | PROVIDERS: PCP Student in an Organized Health Care Education/Training Program; Visit Provider Psychiatry & Neurology Psychiatry | DX: F33.2 Major depressive disorder, recurrent severe without psychotic features (principal) | CPT/HCPCS: 90870 ==

== ENCOUNTER 2025-07-16 05:36 | Day surgery (SDC) | payer MEDICARE, OTHER, SELFPAY ==
[2025-07-16] VITALS (8 sets, daily range): BP systolic 119–153; BP diastolic 77–93; PULSE 72–96; RESP 16–19; TEMP 36.3–36.8; O2SAT 93–96; BMI 25.7
--- NOTE | 2025-07-16 06:39 | HO.ANESPROP2 ---
HPI - Anesthesia Eval Consult details Narrative: for ECT PMFSH Active Problems Active Problems: All Active Problems Overdose (Acute) S/P total knee arthroplasty (Acute) OCD (obsessive compulsive disorder) (Acute) Chronic insomnia (Acute) Status post total left knee replacement (Acute) Pre-op evaluation (Acute) Mild recurrent major depression (Acute) Skin lesion (Acute) Primary osteoarthritis of left knee (Acute) Sinusitis (Acute) Osteoporosis (Acute) Well woman exam (Acute) Status post total right knee replacement (Acute) Palpitations (Acute) Hypercalcemia (Acute) PAC (premature atrial contraction) (Acute) Primary osteoarthritis of right knee (Acute) Essential hypertension (Acute) Dyslipidemia (Acute) Past Medical History Medical History Panic disorder OCD (obsessive compulsive disorder) MDD (major depressive disorder), recurrent severe, without psychosis Major depressive disorder Arthritis Panic attacks Osteoporosis PTSD (post-traumatic stress disorder) ELIAN (generalized anxiety disorder) PAC (premature atrial contraction) History of anxiety Dyslipidemia Osteoarthritis (arthritis due to wear and tear of joints) Diverticulitis Essential hypertension Hyperkalemia Depression Family History Family History Mother Dementia Father No problems noted. Family history of problems with anesthesia: No Surgical History Surgical History Hx of tonsillectomy Hx of tubal ligation History of total right knee replacement Hx of colonoscopy History of carpal tunnel release History of Problems with Anesthesia: No Social History Social History Household Members: Spouse Housing: House Are you a primary career technology teacher to a significant other at home: No Do you presently have visiting nurse or other home services: No Unable to assess alcohol history related to: Unable to respond Alcohol intake: never Comment: 1:1 sitter Patient Tobacco Use Status: Never used Tobacco e-Cigarette/Vaping Use: Never Used Second Hand Smoke Exposure: No Substance Use Type: Marijuana Advance Directives: No Advance Directives Information Provided: Yes Advance Directives Date on File: 10/11/24 service: No Current occupational status: retired Current occupation: Right Handed Sexual orientation: Straight/Heterosexual Cognitive needs: No Hearing needs: No Vision needs: No Meds Allergies Allergy/AdvReac Type Severity Reaction Status Date / Time No Known Allergies (No Known Allergy Verified 02/16/25 06:17 Allergies*) Home Medications ?Medication ?Instructions ?Recorded ?Confirmed ?Last Taken ?Type multivitamin 1 tab PO DAILY 01/11/24 10/16/24 02/15/25 History pravastatin 20 mg tablet 20 mg PO DAILY 10/16/24 10/16/24 02/15/25 History Exam Height,Weight and Vital Signs: Height 5 ft 7 in Weight 74.5 kg Airway Mallampati Class: II TM Dist: >3cm Neck ROM: Full Loose/Missing/Broken Teeth: No Heart: ok Lungs: ok Assessment and Plan Assessment Anesthesia Assessment: Anesthesia Plan Discussed and Chart Reviewed Final Anesthetic Review Family History of Problems with Anesthesia: No History of Problems with Anesthesia: No NPO: Yes ASA Class: III Final Preanesthetic Review: No Changes in Pt Med Stat, Meds/Allgs Chart Reviewed, Consent Obtained/Reviewed and Anes Risks/Benef Reviewed Patient Risk: Intermediate Procedure Risk: Intermediate Anesthetic Plan Anesthetic Plan: GA and Agree w/ Assess. and Plan Disposition: Standard PACU
--- NOTE | 2025-07-16 06:48 | ECG_ITS ---
Test Reason : CP Blood Pressure : */* mmHG Vent. Rate : 74 BPM Atrial Rate : 74 BPM P-R Int : 172 ms QRS Dur : 84 ms QT Int : 424 ms P-R-T Axes : -29 -2 18 degrees QTcB Int : 470 ms Normal sinus rhythm Nonspecific ST abnormality Abnormal ECG When compared with ECG of 10-Oct-2024 20:48, Vent. rate has decreased by 40 bpm Referred By: Markel Martinez Electronically Signed By: NICOLLE KLINE
--- NOTE | 2025-07-16 07:07 | MHC.SHP ---
Pre-Procedural Eval Section A - 24 Hr Update-Section A only Date of Service: 07/16/25 Section B - Complete if H&P > 30 days Chief Complaint: depression Details of Present Illness: Pt doing well no c/o s/e on vraylar prozac feels much better Allergies: Allergies Allergy/AdvReac Type Severity Reaction Status Date / Time No Known Allergies (No Known Allergy Verified 02/16/25 06:17 Allergies*) Review of Systems Sugical H&P ROS: Negative: Cardiovascular and Respiratory and Yes, Specify: Psychiatric (less obsessional thinking ) Review of Systems Comment: NEG Exam Surgical H&P Exam: Normal: HEENT, Normal: Heart, Normal: Extremities and Normal: Neurological Plan Diagnosis/Plan: Unchanged I have reviewed the history and physical and performed a pertinent physical examination on my patient. No changes have occurred unless specified. Time Spent With Patient Time: Total time managing care of this patient today ____ minutes.
--- NOTE | 2025-07-16 07:10 | HO.ECTPROC ---
ECT Procedure Note Diagnosis/Treatment Date of Service: 07/16/25 Diagnosis: Major Depressive Disorder Previous ECT Date: 07/02/25 Treatment: Maintenance Interval Clinical Notes: smiling, feeling well. now on vyraylar feeling better fluoxitine Time: Total time managing care of this patient today ____ minutes. ECT Settings Device: THYMATRON DGx Electrode Placement: Right Unilateral Program/Pulse Width: 0.50 Energy Percent: 100 Seizure Duration By EEG (in seconds): 37 Medications Administration General Anesthetic: Etomidate (14) Muscle Relaxant: Succinylcholine (100) Ancillary Medications Miscillaneous Medications: Midazolam (1) Airway Management Airway Management: Bag Mask Ventilation Treatment Recommendations No Changes Recommended: No change Notes: RTC in 3 weeks patient's call if any relapse symptoms will continue to try to taper ect as tolerated Pt Tolerated Procedure w/o Issue: Yes
== END 2025-07-16 08:56 | disposition home or self-care (01) ==
PROVIDERS: PCP Student in an Organized Health Care Education/Training Program; Visit Provider Psychiatry & Neurology Psychiatry
PROC: (CPT 90870; principal; 2025-07-16 07:00)
DX: F33.2 Major depressive disorder, recurrent severe without psychotic features (principal); F42.9 Obsessive-compulsive disorder, unspecified; F41.1 Generalized anxiety disorder; F43.10 Post-traumatic stress disorder, unspecified; I10 Essential (primary) hypertension; E78.00 Pure hypercholesterolemia, unspecified; Z79.899 Other long term (current) drug therapy
CPT/HCPCS: 90870; 93005; J0330; J2250; J2704

== ENCOUNTER → 2025-07-16 05:36 | Outpatient (BNV) | payer MEDICARE, OTHER, SELFPAY | PROVIDERS: PCP Student in an Organized Health Care Education/Training Program; Visit Provider Psychiatry & Neurology Psychiatry | DX: F33.2 Major depressive disorder, recurrent severe without psychotic features (principal) | CPT/HCPCS: 90870 ==

== ENCOUNTER → 2025-07-16 06:48 | Outpatient (BNV) | payer MEDICARE, OTHER, SELFPAY | PROVIDERS: PCP Student in an Organized Health Care Education/Training Program; Visit Provider Internal Medicine | DX: R94.31 Abnormal electrocardiogram [ECG] [EKG] (principal); R07.9 Chest pain, unspecified | CPT/HCPCS: 93010 ==

== ENCOUNTER 2025-08-06 05:40 | Day surgery (SDC) | payer MEDICARE, OTHER, SELFPAY ==
[2025-08-06 06:27] VITALS: BP 111/78; PULSE 88; RESP 13; TEMP 36.8; O2SAT 94; BMI 25.1
--- NOTE | 2025-08-06 06:43 | HO.ANESPROP2 ---
[facility] Active Problems Active Problems: All Active Problems Overdose (Acute) S/P total knee arthroplasty (Acute) OCD (obsessive compulsive disorder) (Acute) Chronic insomnia (Acute) Status post total left knee replacement (Acute) Pre-op evaluation (Acute) Mild recurrent major depression (Acute) Skin lesion (Acute) Primary osteoarthritis of left knee (Acute) Sinusitis (Acute) Osteoporosis (Acute) Well woman exam (Acute) Status post total right knee replacement (Acute) Palpitations (Acute) Hypercalcemia (Acute) PAC (premature atrial contraction) (Acute) Primary osteoarthritis of right knee (Acute) Essential hypertension (Acute) Dyslipidemia (Acute) Past Medical History Medical History Panic disorder OCD (obsessive compulsive disorder) MDD (major depressive disorder), recurrent severe, without psychosis Major depressive disorder Arthritis Panic attacks Osteoporosis PTSD (post-traumatic stress disorder) ELIAN (generalized anxiety disorder) PAC (premature atrial contraction) History of anxiety Dyslipidemia Osteoarthritis (arthritis due to wear and tear of joints) Diverticulitis Essential hypertension Hyperkalemia Depression Family History Family History Mother Dementia Father No problems noted. Family history of problems with anesthesia: No Surgical History Surgical History Hx of tonsillectomy Hx of tubal ligation History of total right knee replacement Hx of colonoscopy History of carpal tunnel release History of Problems with Anesthesia: No Social History Social History Household Members: Spouse Housing: House Are you a primary care team assistant to a significant other at home: No Do you presently have visiting nurse or other home services: No Alcohol intake: never Comment: 1:1 sitter Patient Tobacco Use Status: Never used Tobacco e-Cigarette/Vaping Use: Never Used Second Hand Smoke Exposure: No Substance Use Type: Marijuana Advance Directives: No Advance Directives Information Provided: Yes Advance Directives Date on File: 10/11/24 service: No Current occupational status: retired Current occupation: Right Handed Sexual orientation: Straight/Heterosexual Cognitive needs: No Hearing needs: No Vision needs: No Meds Allergies Allergy/AdvReac Type Severity Reaction Status Date / Time No Known Allergies (No Known Allergy Verified 02/16/25 06:17 Allergies*) Home Medications ?Medication ?Instructions ?Recorded ?Confirmed ?Last Taken ?Type multivitamin 1 tab PO DAILY 01/11/24 10/16/24 02/15/25 History pravastatin 20 mg tablet 20 mg PO DAILY 10/16/24 10/16/24 02/15/25 History Exam Height,Weight and Vital Signs: Height 5 ft 7 in Weight 72.575 kg Last Vital Signs Temp 98.2 F 08/06/25 06:27 Pulse 88 08/06/25 06:27 Resp 13 08/06/25 06:27 BP 111/78 08/06/25 06:27 Pulse Ox 94 08/06/25 06:27 O2 Del Method Room Air 08/06/25 06:27 Airway Mallampati Class: II TM Dist: >3cm Neck ROM: Full Heart: rrr Lungs: cta Assessment and Plan Assessment Anesthesia Assessment: Anesthesia Plan Discussed and Chart Reviewed Final Anesthetic Review Family History of Problems with Anesthesia: No History of Problems with Anesthesia: No NPO: Yes ASA Class: III Final Preanesthetic Review: No Changes in Pt Med Stat, Meds/Allgs Chart Reviewed and Consent Obtained/Reviewed Patient Risk: Intermediate Procedure Risk: Intermediate Anesthetic Plan Anesthetic Plan: GA Disposition: Standard PACU
[2025-08-06] MEDS: Lactated Ringers 1,000 ML 50 ML IVCONT (06:44)
--- NOTE | 2025-08-06 07:31 | MHC.SHP ---
Pre-Procedural Eval Section A - 24 Hr Update-Section A only Date of Service: 08/06/25 The patient is an INPATIENT: No Changes since office visit: No Cold of Flu in the past 2 weeks, No New Medical Problems, No Changes in Medication and No Patient answered all questions The patient has been examined within 24 hours of the surgical procedure. The History & Physical has been completed within 30 days and I have reviewed it.: Yes Section B - Complete if H&P > 30 days Chief Complaint: depression Details of Present Illness: depression better with ECT but OCD worsening Medical History: No relevant PMH Allergies: Allergies Allergy/AdvReac Type Severity Reaction Status Date / Time No Known Allergies (No Known Allergy Verified 02/16/25 06:17 Allergies*) Review of Systems Sugical H&P ROS: Negative: Constitution, Cardiovascular, Respiratory, Gastrointestinal, Genitourinary and Musculoskeletal and Yes, Specify: Psychiatric (OCD worsening) Exam Surgical H&P Exam: Normal: HEENT (PERRLA), Normal: Heart (RRR; no murmurs) and Normal: Lungs (CTA b/l throughout) Plan Diagnosis/Plan: Unchanged I have reviewed the history and physical and performed a pertinent physical examination on my patient. No changes have occurred unless specified. Time Spent With Patient Time: Total time managing care of this patient today ____ minutes.
--- NOTE | 2025-08-06 07:33 | HO.ECTPROC ---
ECT Procedure Note Diagnosis/Treatment Date of Service: 08/06/25 Diagnosis: Major Depressive Disorder Previous ECT Date: 07/12/25 Treatment: Maintenance Interval Clinical Notes: depression better but OCD worsening; reports psychiatrist lowering and dc'ing Zoloft and instead titrating Prozac (in middle of cross taper) Time: Total time managing care of this patient today ____ minutes. ECT Settings Device: THYMATRON DGx Electrode Placement: Right Unilateral Program/Pulse Width: 0.50 Energy Percent: 100 Seizure Duration By EEG (in seconds): 46 By Motor Observation (in seconds): 16 Medications Administration General Anesthetic: Etomidate (14) Muscle Relaxant: Succinylcholine (100) Ancillary Medications Miscillaneous Medications: Midazolam (1) Airway Management Airway Management: Bag Mask Ventilation Treatment Recommendations No Changes Recommended: No change Electrode Placement: Right Unilateral Program/Pulse Width: 0.50 Energy Percent: 100 Notes: adequate seizure continue tx parameters Pt Tolerated Procedure w/o Issue: Yes
[2025-08-06 08:27] VITALS: BP 188/88; PULSE 56; RESP 18; TEMP 37.4; O2SAT 94
[2025-08-06 08:32] VITALS: BP 187/86; PULSE 103; RESP 24; O2SAT 96
[2025-08-06 08:37] VITALS: BP 154/84; PULSE 75; RESP 18; O2SAT 94
[2025-08-06 08:42] VITALS: BP 141/69; PULSE 74; RESP 18; O2SAT 92
[2025-08-06 08:57] VITALS: BP 135/75; PULSE 88; RESP 18; TEMP 37.1; O2SAT 98
== END 2025-08-06 09:29 | disposition home or self-care (01) ==
PROVIDERS: PCP Student in an Organized Health Care Education/Training Program; Visit Provider Psychiatry & Neurology Psychiatry
PROC: (CPT 90870; principal; 2025-08-06 07:00)
DX: F33.2 Major depressive disorder, recurrent severe without psychotic features (principal); F42.9 Obsessive-compulsive disorder, unspecified; F41.1 Generalized anxiety disorder; F43.10 Post-traumatic stress disorder, unspecified; I10 Essential (primary) hypertension; E78.00 Pure hypercholesterolemia, unspecified; Z79.899 Other long term (current) drug therapy
CPT/HCPCS: 90870; J0330; J2250

== ENCOUNTER → 2025-08-06 05:40 | Outpatient (BNV) | payer MEDICARE, OTHER, SELFPAY | PROVIDERS: PCP Student in an Organized Health Care Education/Training Program; Visit Provider Psychiatry & Neurology Psychiatry | DX: F33.2 Major depressive disorder, recurrent severe without psychotic features (principal) | CPT/HCPCS: 90870 ==

== ENCOUNTER → 2025-10-15 12:36 | Outpatient (BNV) | payer MEDICARE, OTHER, SELFPAY | PROVIDERS: Admitting Provider Social Worker; Emergency Provider Emergency Medicine; PCP Student in an Organized Health Care Education/Training Program; Visit Provider Internal Medicine | DX: Z13.6 Encounter for screening for cardiovascular disorders (principal) | CPT/HCPCS: 93010 ==

== ENCOUNTER → 2025-10-15 13:07 | Outpatient (BNV) | payer MEDICARE, OTHER, SELFPAY | PROVIDERS: Admitting Provider Social Worker; Emergency Provider Emergency Medicine; PCP Student in an Organized Health Care Education/Training Program; Visit Provider Social Worker | DX: F33.2 Major depressive disorder, recurrent severe without psychotic features (principal); F42.9 Obsessive-compulsive disorder, unspecified | CPT/HCPCS: 90792 ==

== ENCOUNTER → 2025-10-15 13:07 | Outpatient (BNV) | payer MEDICARE, OTHER, SELFPAY | PROVIDERS: Admitting Provider Social Worker; Emergency Provider Emergency Medicine; PCP Student in an Organized Health Care Education/Training Program; Visit Provider Internal Medicine | DX: I42.9 Cardiomyopathy, unspecified (principal); I49.3 Ventricular premature depolarization | CPT/HCPCS: 99223; 99233 ==

== ENCOUNTER → 2025-10-15 13:07 | Outpatient (BNV) | payer MEDICARE, OTHER, SELFPAY | PROVIDERS: Admitting Provider Social Worker; Emergency Provider Emergency Medicine; PCP Student in an Organized Health Care Education/Training Program; Visit Provider Nurse Practitioner Family | DX: I10 Essential (primary) hypertension (principal) | CPT/HCPCS: 99221 ==

== ENCOUNTER → 2025-10-15 13:07 | Outpatient (BNV) | payer MEDICARE, OTHER, SELFPAY | PROVIDERS: Admitting Provider Social Worker; Emergency Provider Emergency Medicine; PCP Student in an Organized Health Care Education/Training Program; Visit Provider Psychiatry & Neurology Psychiatry | DX: F33.2 Major depressive disorder, recurrent severe without psychotic features (principal) | CPT/HCPCS: 90870 ==

== ENCOUNTER → 2025-10-15 13:07 | Outpatient (BNV) | payer MEDICARE, OTHER, SELFPAY | PROVIDERS: Admitting Provider Social Worker; Emergency Provider Emergency Medicine; PCP Student in an Organized Health Care Education/Training Program; Visit Provider Internal Medicine | DX: D72.829 Elevated white blood cell count, unspecified (principal) | CPT/HCPCS: 99222 ==